=== PATIENT | male | born 1945 | race Caucasian/White ===

== ENCOUNTER 2016-11-29 17:03 | Emergency (ER) | payer MEDICARE ==
[2016-11-29] MEDS ORDERED: DIPH,PERTUS(ACELL)TETVAC-LF 0.5 ML VIAL IM ONE (17:23)
[2016-11-29 17:25] VITALS: RESP 18
--- NOTE | 2016-11-29 17:32 | ED ---
General Adult HPI - General Chief complaint: Fall Stated complaint: Fall Time Seen by Provider: 11/29/16 17:13 Source: patient, family, RN notes reviewed Mode of arrival: EMS Limitations: no limitations - History of Present Illness Initial comments: Patient is a pleasant 71-year-old male presenting to the emergency department following a fall. Patient was walking on steps tripped. Patient fell down approximately 7 steps. Patient did strike the top of his head. Patient does have a mild headache. No loss of consciousness. No neck pain. Patient does have some discomfort of the left mid back. No extremity injury. No chest pain or dyspnea. No abdominal pain. Unclear last tetanus immunization - Related Data Allergies Allergy/AdvReac Type Severity Reaction Status Date / Time No Known Allergies Allergy Verified 11/29/16 17:43 Review of Systems ROS Statement: Those systems with pertinent positive or pertinent negative responses have been documented in the HPI. ROS Other: All systems not noted in ROS Statement are negative. Constitutional: Denies: fever Eyes: Denies: eye pain ENT: Denies: ear pain Respiratory: Denies: cough, dyspnea Cardiovascular: Denies: chest pain Endocrine: Denies: fatigue Gastrointestinal: Denies: abdominal pain Genitourinary: Denies: dysuria Musculoskeletal: Reports: back pain Skin: Denies: rash Neurological: Reports: headache. Denies: weakness, confusion Past Medical History Past Medical History: Coronary Artery Disease (CAD), Heart Failure, Diabetes Mellitus, Hyperlipidemia, Hypertension, Thyroid Disorder Additional Past Medical History / Comment(s): KIDNEY DISEASE History of Any Multi-Drug Resistant Organisms: None Reported Past Surgical History: Coronary Bypass/CABG Past Psychological History: Anxiety Smoking Status: Never smoker Past Alcohol Use History: None Reported Past Drug Use History: None Reported General Exam Limitations: no limitations General appearance: alert, in no apparent distress Head exam: Present: other (Abrasions to the top of the head) Eye exam: Present: normal appearance, PERRL, EOMI. Absent: nystagmus ENT exam: Present: normal oropharynx Neck exam: Present: normal inspection, full ROM. Absent: tenderness Respiratory exam: Present: normal lung sounds bilaterally Cardiovascular Exam: Present: regular rate, normal rhythm GI/Abdominal exam: Present: soft. Absent: distended, tenderness Extremities exam: Present: normal inspection Back exam: Present: tenderness (Patient does have mild tenderness below the left scapula.) Neurological exam: Present: alert, oriented X3, CN II-XII intact. Absent: motor sensory deficit Expanded Patient oriented to: Present: person, place, time Speech: Present: fluid speech Cranial nerves: EOM's Intact: Normal Motor strength exam: RUE: 5, LUE: 5, RLE: 5, LLE: 5 Psychiatric exam: Present: normal affect, normal mood Skin exam: Absent: rash Course Vital Signs 11/29/16 17:17 Temperature 96.9 F L Pulse Rate 74 Respiratory 18 Rate Blood Pressure 163/79 O2 Sat by Pulse 95 Oximetry - Reevaluation(s) Reevaluation #1: 11/29/16 17:25 During medication review it was determined patient is on Plavix and does qualify for priority 2 trauma. Case was discussed with Dr. No. EKG Findings - EKG Comments: EKG Findings:: Sinus rhythm at 72. PVC present. AK 196. QRS 112. QT 448. QTC 490. Left axis. LVH with repolarization change. Medical Decision Making - Medical Decision Making Patient examined and resting comfortably in bed. Patient and family updated on results. - Radiology Data Radiology results: report reviewed (80 scan of brain shows no acute intercranial abnormality.), image reviewed (Chest x-ray and pelvis x-ray and rib x-rays show no acute abnormality.) Disposition Clinical Impression: Fall, Head injury, Rib contusion Disposition: HOME SELF-CARE Condition: Stable Instructions: Head Injury (ED), Rib Contusion (ED) Additional Instructions: Dexi-foj-eeszgyy Tylenol as needed. Please follow-up with primary care physician in the next day or 2 for recheck. Return for confusion, vomiting, weakness, difficulty breathing, worsening symptoms or other concerns. Referrals: Golden Horta DO [Primary Care Provider] - 1-2 days Time of Disposition: 18:44
--- NOTE | 2016-11-29 17:43 | XR ---
EXAMINATION TYPE: XR pelvis AP view DATE OF EXAM: 11/29/2016 5:35 PM COMPARISON: NONE HISTORY: Pain TECHNIQUE: Single view FINDINGS: Pelvic ring is intact. Proximal femurs are intact. Acetabular intact. There is vascular melissa cification. Sacroiliac joints appear normal. IMPRESSION: Negative pelvis exam. No fracture.
--- NOTE | 2016-11-29 18:10 | XR ---
EXAMINATION TYPE: XR chest 1V portable DATE OF EXAM: 11/29/2016 5:40 PM COMPARISON: 10/11/2011 HISTORY: Rib pain TECHNIQUE: Single frontal view of the chest is obtained. FINDINGS: There is no heart failure nor confluent pneumonic infiltrate. There are no hilar masses. C ostophrenic angles are clear. There are sternal wires. There is a left axillary pacemaker with the le ad tips in the right ventricle. There is no pneumothorax. I see no rib fracture. IMPRESSION: No active cardiopulmonary disease. There is clearing of the pulmonary edema compared to old exam.
--- NOTE | 2016-11-29 18:18 | CT ---
EXAMINATION TYPE: CT brain wo con DATE OF EXAM: 11/29/2016 6:13 PM COMPARISON: 10/02/2011 HISTORY: Patient fell today hitting top of head, abrasion at site. Patient displays dizziness post f all. CT DLP: 1067 mGycm Automated exposure control for dose reduction was used. FINDINGS: There is mild cerebral cortical atrophy. There is no mass effect nor midline shift. There is no sign of intracranial hemorrhage. The calvarium is intact. I see no bony destructive process. There is left parietal scalp soft tissue swelling. IMPRESSION: Left parietal scalp hematoma. Cerebral atrophy. No acute intracranial abnormality. Brain is stable co mpared to old exam.
--- NOTE | 2016-11-29 18:23 | XR ---
EXAMINATION TYPE: XR ribs LT DATE OF EXAM: 11/29/2016 6:16 PM COMPARISON: NONE HISTORY: Left rib pain TECHNIQUE: 4 views FINDINGS: I see no pleural effusion or pneumothorax. Left lung is clear of consolidation. I see no di splaced rib fracture. Left axillary pacemaker is noted. IMPRESSION: No rib fracture seen.
[2016-11-29] MEDS ORDERED: ACETAMINOPHEN TAB 500 MG TAB PO STA (18:26)
[2016-11-29 18:38] LABS: Glucose,Whole Blood 90 mg/dL (75-99)
[2016-11-29 19:22] VITALS: BP 123/67; PULSE 68; TEMP 98
== END 2016-11-29 19:30 | disposition home or self-care (01) ==
LOC: EC 17:03
DX: S20.212A Contusion of left front wall of thorax, initial encounter (principal); S00.01XA Abrasion of scalp, initial encounter; M54.9 Dorsalgia, unspecified; Z23 Encounter for immunization; W10.9XXA Fall (on) (from) unspecified stairs and steps, initial encounter
CPT/HCPCS: 36415; 70450; 71010; 72170; 90471; 90715; 93005; 99285

== ENCOUNTER 2018-06-15 11:38 | Day surgery (SDC) | payer MEDICARE ==
[2018-06-09 15:58] VITALS: BMI 25.8
[~2018-06-15 11:38] MED LIST: LACTATED RINGERS 1,000 ML IV SCH; SODIUM CHLORIDE 0.9% 1,000 ML IV SCH; ceFAZolin 1,000 MG in SODIUM CHLORIDE 0.9% IRRIGATIO 250 ML IRRIGATION ONE; ceFAZolin IN SWFI 2 GM/20 ML SYRINGE IVP ONE
[2018-06-15 12:42] LABS: Glucose,Whole Blood 120 mg/dL (75-99)
[2018-06-15] MEDS ORDERED: MIDAZOLAM 2 MG/2 ML VIAL IV ONE (12:46)
[2018-06-15] MEDS ORDERED: MIDAZOLAM 2 MG/2 ML VIAL ONE (13:08)
[2018-06-15] MEDS ORDERED: fentaNYL (PF) 50 MCG/ML 2 ML AMP ONE (13:08)
[2018-06-15] MEDS ORDERED: PROPOFOL 10 MG/ML 20 ML VIAL IV ONE (13:08)
[2018-06-15] MEDS ORDERED: LIDOCAINE 1% INJ 10MG/ML (20 ML MDV) ONE (13:28)
[2018-06-15] MEDS ORDERED: LIDOCAINE 1% INJ 10MG/ML (20 ML MDV) SQ ONE ×2 (13:45→14:24)
--- NOTE | 2018-06-15 15:09 | P.DS ---
Providers Attending physician: Silvestre Jackson Primary care physician: [facility] Course: 72-year-old male patient with ischemic cardiomyopathy, systolic heart failure CHF class 2-3, history of fast ventricular tachycardia in the past ICD dual chamber for secondary prevention of sudden cardiac in the past. Device is now at [facility] and he is admitted for dual-chamber ICD generator change. Normal battery depletion Known coronary artery disease Ischemic cardio myopathy Left ventricular ejection fraction 40% Chronic kidney disease with creatinine around 2.5 and hence not on ELIZABETH inhibitor is on angiotensin receptor blockers History of hyperkalemia hence not on ELIZABETH inhibitor as angiotensin receptor blockers Known coronary artery disease Diabetes type 2 Hypertension Successful dual-chamber ICD generator change DFT at below 15 J Plan - Discharge Summary Discharge Rx Participant: Yes New Discharge Prescriptions: No Action Aspirin EC [Ecotrin Low Dose] 81 mg PO BID Ferrous Sulfate [Feosol] 325 mg PO BID Ergocalciferol [Vitamin D2] 50,000 unit PO Q28D Allopurinol [Zyloprim] 100 mg PO DAILY Procrit(Unknown Dose) 1 dose IV Q21D Calcitriol [Rocaltrol] 0.25 mcg PO WE Levothyroxine Sodium [Synthroid] 100 mcg PO DAILY Carvedilol [Coreg] 12.5 mg PO BID Atorvastatin [Lipitor] 40 mg PO HS Repaglinide [Prandin] 0.5 mg PO 1200 Repaglinide [Prandin] 0.5 mg PO AC-BRKFST RX: Spironolactone 12.5 mg PO 1200 Discharge Medication List Allopurinol [Zyloprim] 100 mg PO DAILY 11/29/16 [History] Aspirin EC [Ecotrin Low Dose] 81 mg PO BID 11/29/16 [History] Calcitriol [Rocaltrol] 0.25 mcg PO WE 11/29/16 [History] Carvedilol [Coreg] 12.5 mg PO BID 11/29/16 [History] Ergocalciferol [Vitamin D2] 50,000 unit PO Q28D 11/29/16 [History] Ferrous Sulfate [Feosol] 325 mg PO BID 11/29/16 [History] Levothyroxine Sodium [Synthroid] 100 mcg PO DAILY 11/29/16 [History] Procrit(Unknown Dose) 1 dose IV Q21D 11/29/16 [History] Atorvastatin [Lipitor] 40 mg PO HS 1030/18 [History] RX: Spironolactone 12.5 mg PO 1200 06/09/18 [History] Repaglinide [Prandin] 0.5 mg PO 1200 06/09/18 [History] Repaglinide [Prandin] 0.5 mg PO AC-BRKFST 06/09/18 [History]
[2018-06-15] MEDS ORDERED: HYDROcodone/APAP 5-325MG 1 EACH TAB PO PRN (15:16)
[2018-06-15] MEDS ORDERED: ACETAMINOPHEN TAB 325 MG TAB PO PRN (15:16)
[2018-06-15] MEDS ORDERED: ACETAMINOPHEN IV (For NPO) 1,000 MG in EMPTY BAG 1 BAG IVPB ONE (15:30)
[2018-06-15 15:50] LABS: Glucose,Whole Blood 114 mg/dL (75-99)
[2018-06-15] MEDS ORDERED: PROCRIT IV SCH (16:45)
[2018-06-15] MEDS: ALPRAZolam 0.25 MG TAB PO PRN ×2 (17:09→23:07)
[2018-06-15] MEDS: CARVEDILOL 12.5 MG TAB PO SCH (17:09)
[2018-06-15] MEDS: ceFAZolin IN SWFI 2 GM/20 ML SYRINGE IVP SCH ×2 (18:05→23:07)
[2018-06-15] MEDS: ASPIRIN 81 MG PO SCH (20:10)
[2018-06-15] MEDS: FERROUS SULFATE 325 MG TAB PO SCH (20:10)
[2018-06-15 20:45] LABS: Glucose,Whole Blood 204 mg/dL (75-99)
[2018-06-15] MEDS ORDERED: ATORVASTATIN 40 MG TAB PO SCH (21:00)
--- NOTE | 2018-06-15 22:10 | PCN ---
PROCEDURE NOTE Mr. Pena is a 75-year-old male patient with a dual-chamber ICD for secondary prevention of sudden cardiac with underlying ischemic cardiomyopathy, heart failure and coronary artery disease, who has a dual-chamber ICD implanted, now needs a generator change because of normal battery depletion. Patient was brought to the EP lab in a fasting state. Written informed consent was obtained prior to the procedure. The left shoulder was prepped and draped as per protocol. 1% lidocaine was used for local anesthesia. An incision was made directly over the previous surgical site and carried down to the level of the generator. The generator was explanted. The leads were freed from the surrounding capsule and scar tissue. There was fairly exuberant capsule formation associated on the leads. Leads were carefully freed. Partial capsulectomy was performed. Hemostasis was assured and all muscular bleeding was taken care of using Aquamantys. The old generator was removed. This was a [employer] CD 2211-36, serial #[id number]. The new generator implanted was a [employer] CD 2411-36C, serial #[id number]. The atrial lead was a model #1688TC, 52 cm in length and serial number [id number]. The P waves were 2.9 mV. Pacing impedance 440 ohms, pacing threshold 0.6 V at 0.5 milliseconds. The RV lead was a [employer] model #14657 5 cm in length and serial number [id number]. R-waves 12 mV. Pacing impedance 450 ohms, pacing threshold 1.1 V at 0.5 milliseconds. The leads and generator were then placed in the subfascial pocket. The wound was closed in 3 layers and dressed per protocol. Defibrillation level testing: DC fib shock was used to induce ventricular fibrillation. This was adequately and appropriately detected at least sensitivity and successfully internally defibrillated with a 15 joule shock. Charge time 1.9 seconds. No post shock noise, performed at least sensitivity of 1 mV. Next, the device was then reprogrammed on account of the immediate RIT programming. Along with rate responsiveness, appropriate antitachycardia pacing cardioversion defibrillation was programmed. RESULTS: 1. Successful dual-chamber ICD generator change for secondary prevention of sudden cardiac . 2. DFT at or below 15 joules. Copy to attention [facility] at [facility]. MMODL / IJN: [id number] /
[2018-06-16 05:24] VITALS: RESP 18
[2018-06-16 05:42] LABS: Glucose,Whole Blood 76 mg/dL (75-99)
[2018-06-16] MEDS: ceFAZolin IN SWFI 2 GM/20 ML SYRINGE IVP SCH ×2 (06:13→12:13)
[2018-06-16] MEDS: CARVEDILOL 12.5 MG TAB PO SCH (06:14)
[2018-06-16] MEDS ORDERED: LEVOTHYROXINE 100 MCG TAB PO SCH (06:30)
[2018-06-16] MEDS ORDERED: REPAGLINIDE 1 MG TAB PO SCH ×2 (07:30→12:00)
[2018-06-16] MEDS: FERROUS SULFATE 325 MG TAB PO SCH (08:10)
[2018-06-16] MEDS: ASPIRIN 81 MG PO SCH (08:10)
[2018-06-16] MEDS ORDERED: ALLOPURINOL 100 MG TAB PO SCH (09:00)
[2018-06-16 10:19] VITALS: BP 174/77; TEMP 97.6
[2018-06-16 10:38] VITALS: PULSE 50
[2018-06-16] MEDS ORDERED: SPIRONOLACTONE 25 MG TAB PO SCH (12:00)
--- NOTE | 2018-06-16 15:12 | P.DS ---
Providers Attending physician: Silvestre Jackson Primary care physician: [facility] Course: Patient is doing well. No chest discomfort dizziness lightheadedness or palpitations He underwent dual-chamber ICD generator change yesterday. Very small soft hematoma minimal bruising and soakage [place] vitals are stable, afebrile normal respirations Impression Ischemic cardio myopathy Sustained ventricular tachycardia in the past Status post ICD generator change yesterday Patient is continued IV antibiotics will be discharged home today with seeing the office in 5 days Coreg dose was increased to 12.5 g twice daily in the office Plan - Discharge Summary Discharge Rx Participant: Yes New Discharge Prescriptions: Continue Aspirin EC [Ecotrin Low Dose] 81 mg PO BID Ferrous Sulfate [Iron (65 MG Elemental)] 325 mg PO BID Ergocalciferol [Vitamin D2 (DRISDOL)] 50,000 unit PO Q28D Allopurinol [Zyloprim] 100 mg PO DAILY Procrit(Unknown Dose) 1 dose IV Q21D Calcitriol [Rocaltrol] 0.25 mcg PO WE Levothyroxine Sodium [Synthroid] 100 mcg PO DAILY Carvedilol [Coreg] 12.5 mg PO BID Atorvastatin [Lipitor] 40 mg PO HS Repaglinide [Prandin] 0.5 mg PO 1200 Repaglinide [Prandin] 0.5 mg PO AC-BRKFST Spironolactone 12.5 mg PO 1200 Discharge Medication List Allopurinol [Zyloprim] 100 mg PO DAILY 11/29/16 [History] Aspirin EC [Ecotrin Low Dose] 81 mg PO BID 11/29/16 [History] Calcitriol [Rocaltrol] 0.25 mcg PO WE 11/29/16 [History] Carvedilol [Coreg] 12.5 mg PO BID 11/29/16 [History] Ergocalciferol [Vitamin D2 (DRISDOL)] 50,000 unit PO Q28D 11/29/16 [History] Ferrous Sulfate [Iron (65 MG Elemental)] 325 mg PO BID 11/29/16 [History] Levothyroxine Sodium [Synthroid] 100 mcg PO DAILY 11/29/16 [History] Procrit(Unknown Dose) 1 dose IV Q21D 11/29/16 [History] Atorvastatin [Lipitor] 40 mg PO HS 06/09/18 [History] Repaglinide [Prandin] 0.5 mg PO 1200 06/09/18 [History] Repaglinide [Prandin] 0.5 mg PO AC-BRKFST 06/09/18 [History] Spironolactone 12.5 mg PO 1200 06/09/18 [History] Follow up Appointment(s)/Referral(s): Silvestre Jackson MD [STAFF PHYSICIAN] - 06/22/18 11:00 am (Follow up in the Device Clinic as scheduled on 2017 at 11:00am Follow-up with Dr. Sen in 6 months) Patient Instructions/Handouts: Pacemaker Generator Change (GEN) Activity/Diet/Wound Care/Special Instructions: PATIENT EDUCATION MATERIAL Instructions following a heart rhythm device implant. 1. Keep dressing DRY for 5 DAYS. You may cover the area with Saran or Cling Wrap, prior to a shower. 2. The dressing will be removed in the Device Clinic at [facility]. Absorbable sutures were used to close the wound. 3. Avoid raising the left arm above the shoulder level. 4 week restriction 4. Avoid arm movements, like backscratching, rubbing the head, or pulling on a cord. 4 weeks restriction 5. Gentle range of motion movements of the shoulder, closest to the incision should be performed to avoid a frozen shoulder. (Pendulum exercises of the shoulder) 6. The opposite arm may be used freely. 7. Avoid driving for 7 days. 8. Avoid activities such as golfing, swimming, weed whacking, lifting more than 10 pounds weight, bowling, gymnastics and weight training/lifting. (6 weeks restriction) 9. Activities such as wood chopping with an axe, pull-ups in the gymnasium, power lifting, arc-welding, being close to home induction cooktops will always be a problem. 10. Arm sling is only a reminder not to raise the arm above the head. You do not need to keep the arm completely immobilized. Your free to move the arm and use it and for normal activities. In case of any problems, please call [facility], [facility], @ [phone], Attention: Device Clinic Device clinic follow-up in 5 days Follow-up with Dr. Sen in 4-6 months Discharge Disposition: HOME SELF-CARE
[2018-06-17] MEDS ORDERED: CALCITRIOL 0.25 MCG CAP PO SCH (09:00)
[2018-07-12] MEDS ORDERED: ERGOCALCIFEROL 50,000 UNIT CAP PO SCH (09:00)
== END 2018-06-16 15:13 | disposition home or self-care (01) ==
LOC: CATHEP 11:38 → 3SCARD 14:48 → 1SOBS 06-16 10:10 → CATHEP 06-16 15:13
PROVIDERS: ATTEND Internal Medicine Clinical Cardiac Electrophysiology
DX: Z45.02 Encounter for adjustment and management of automatic implantable cardiac defibrillator (principal); I25.5 Ischemic cardiomyopathy; I47.2 Ventricular tachycardia; I97.638 Postprocedural hematoma of a circulatory system organ or structure following other circulatory system procedure; Y83.8 Other surgical procedures as the cause of abnormal reaction of the patient, or of later complication, without mention of misadventure at the time of the procedure; Y92.239 Unspecified place in hospital as the place of occurrence of the external cause; I25.10 Atherosclerotic heart disease of native coronary artery without angina pectoris; I25.810 Atherosclerosis of coronary artery bypass graft(s) without angina pectoris; E11.22 Type 2 diabetes mellitus with diabetic chronic kidney disease; I13.0 Hypertensive heart and chronic kidney disease with heart failure and stage 1 through stage 4 chronic kidney disease, or unspecified chronic kidney disease; N18.4 Chronic kidney disease, stage 4 (severe); I50.22 Chronic systolic (congestive) heart failure; E78.5 Hyperlipidemia, unspecified; M10.9 Gout, unspecified; E07.9 Disorder of thyroid, unspecified; E11.319 Type 2 diabetes mellitus with unspecified diabetic retinopathy without macular edema; Z79.82 Long term (current) use of aspirin; Z79.890 Hormone replacement therapy; Z79.899 Other long term (current) drug therapy; Z79.84 Long term (current) use of oral hypoglycemic drugs
CPT/HCPCS: 93641; 33263; C1721; J2250; J0690 ×3; J2001; J3010; J0131; J2704; 93005

== ENCOUNTER 2020-11-18 21:48 | Inpatient (IN) | payer MEDICARE ==
[2020-11-18] MEDS ORDERED: SODIUM CHLORIDE 0.9% 500 ML 500 ML IV STA (23:25)
[2020-11-19 00:39] LABS: Anisocytosis Slight; Basophils % (A) 0 %; Eosinophils % (A) 0 %; HCT 29.6 % (39.0-53.0); HGB 9.7 gm/dL (13.0-17.5); Hypochromasia Slight; Lymphocytes # (A) 0.5 k/uL (1.0-4.8); Lymphocytes % (A) 16 %; MCH 31.3 pg (25.0-35.0); MCHC 32.6 g/dL (31.0-37.0); MCV 95.9 fL (80.0-100.0); Mean Platelet Volume 8.3; Monocytes # (A) 0.2 k/uL (0-1.0); Monocytes % (A) 7 %; Neutrophils # (A) 2.4 k/uL (1.3-7.7); Neutrophils % (A) 75 %; Platelet Count 164 k/uL (150-450); Poikilocytosis Slight; RBC 3.09 m/uL (4.30-5.90); RDW 17.2 % (11.5-15.5); WBC 3.2 k/uL (3.8-10.6)
[2020-11-19 00:49] LABS: Albumin 3.2 g/dL (3.5-5.0); Calcium 7.4 mg/dL (8.4-10.2); Potassium 4.8 mmol/L (3.5-5.1); Total Bilirubin 0.5 mg/dL (0.2-1.3); Total Protein 5.7 g/dL (6.3-8.2)
[2020-11-19 00:50] LABS: Partial Thromboplastin Time 24.3 sec (22.0-30.0); Prothrombin Time 10.2 sec (9.0-12.0)
[2020-11-19 01:59] LABS: Appearance,Urine Clear (Clear); Bilirubin,Urine Negative (Negative); Blood,Urine Moderate (Negative); Color,Urine Yellow; Glucose,Urine (UA) Negative (Negative); Ketones,Urine Negative (Negative); Leukocyte Esterase,Urine Negative (Negative); Mucus,Urine Rare /hpf; Nitrite,Urine Negative (Negative); PH, Urine 5.5 (5.0-8.0); Protein,Urine 2+ (Negative); RBC,Urine 1 /hpf (0-5); Specific Gravity,Urine 1.009 (1.001-1.035); Urobilinogen,Urine <2.0 mg/dL (<2.0); WBC,Urine 1 /hpf (0-5)
[2020-11-19] MEDS ORDERED: ALPRAZolam 0.25 MG TAB PO STA (02:12)
[2020-11-19] MEDS ORDERED: NALOXONE 0.4 MG/ML 1 ML VIAL IV PRN (02:13)
[2020-11-19] MEDS ORDERED: SODIUM CHLORIDE 0.9% 1,000 ML IV SCH (02:15)
--- NOTE | 2020-11-19 02:17 | ED ---
General Adult HPI - General Chief complaint: Weakness Stated complaint: Weakness, Covid symptoms Time Seen by Provider: 11/18/20 22:50 Source: patient, EMS Mode of arrival: EMS Limitations: no limitations - History of Present Illness Initial comments: 75 year-old male patient presents to the emergency department for evaluation of fatigue and weakness for the last week. States that his symptoms have been progressively worsening. States that he slept all day today. They called an ambulance because he was too weak to transport himself with his walker from the toilet back to bed. He denies any headaches, blurred vision, double vision. Denies any focal extremity weakness. Denies any chest pain or shortness of breath. He denies any hematuria, dysuria, urinary urgency, or urinary frequency. He states he did have outpatient COVID test which was negative. He does have extensive past medical history including coronary artery disease status post CABG and implanted AICD, diabetes. Denies any nausea or vomiting. Denies diarrhea. Patient denies any recent rash, fever, chills, cough, shortness of breath, chest pain, diarrhea, constipation, back pain, numbness, tingling, dizziness, weakness, headache, visual changes, or any other complaints. - Related Data Home Medications Medication Instructions Recorded Confirmed Aspirin EC [Ecotrin Low Dose] 81 mg PO BID 11/29/16 06/09/18 Carvedilol [Coreg] 12.5 mg PO BID 11/29/16 06/09/18 Ergocalciferol [Vitamin D2 50,000 unit PO Q28D 11/29/16 06/09/18 (DRISDOL)] Ferrous Sulfate [Iron (65 MG 325 mg PO BID 11/29/16 06/09/18 Elemental)] Levothyroxine Sodium [Synthroid] 100 mcg PO DAILY 11/29/16 06/09/18 Procrit(Unknown Dose) 1 dose IV Q21D 11/29/16 06/09/18 allopurinoL [Zyloprim] 100 mg PO DAILY 11/29/16 06/09/18 calcitrioL [Rocaltrol] 0.25 mcg PO WE 11/29/16 06/09/18 Atorvastatin [Lipitor] 40 mg PO HS 06/09/18 06/09/18 Repaglinide [Prandin] 0.5 mg PO 1200 06/09/18 06/09/18 Repaglinide [Prandin] 0.5 mg PO AC-BRKFST 06/09/18 06/09/18 Spironolactone 12.5 mg PO 1200 06/09/18 06/09/18 Allergies Allergy/AdvReac Type Severity Reaction Status Date / Time No Known Allergies Allergy Verified 06/09/18 15:50 Review of Systems ROS Statement: Those systems with pertinent positive or pertinent negative responses have been documented in the HPI. ROS Other: All systems not noted in ROS Statement are negative. Past Medical History Past Medical History: Diabetes Mellitus, Eye Disorder, Thyroid Disorder Additional Past Medical History / Comment(s): SEE DR KENNY H&P, ANEMIA, HX GOUT, NEUROPATHY ALEX HANDS AND FEET, DIABETIC RETINOPATHY, GET INJECTIONS IN EYES, stage 4 KIDNEY DISEASE per spouse History of Any Multi-Drug Resistant Organisms: None Reported Past Surgical History: AICD, Coronary Bypass/CABG Additional Past Surgical History / Comment(s): ALEX CATARACTS, CABG X4 Past Anesthesia/Blood Transfusion Reactions: No Reported Reaction Type of Cardiac Device: AICD Device Placement Date:: 11/20/17 [facility] Past Psychological History: No Psychological Hx Reported Smoking Status: Never smoker Past Alcohol Use History: None Reported Past Drug Use History: None Reported - Past Family History Father Family Medical History: Cancer Brother(s) Family Medical History: Cancer General Exam Limitations: no limitations General appearance: alert, in no apparent distress, other (This is a well- developed, well-nourished elderly male patient in no acute distress. Vital signs upon presentation are temperature 99.2F, pulse 60, respirations 18, blood pressure 145/66, pulse ox 98% on room air.) Eye exam: Present: normal appearance, PERRL, EOMI. Absent: scleral icterus, conjunctival injection, periorbital swelling ENT exam: Present: normal exam, normal oropharynx, mucous membranes moist Respiratory exam: Present: normal lung sounds bilaterally. Absent: respiratory distress, wheezes, rales, rhonchi, stridor Cardiovascular Exam: Present: regular rate, normal rhythm, normal heart sounds. Absent: systolic murmur, diastolic murmur, rubs, gallop, clicks GI/Abdominal exam: Present: soft, normal bowel sounds. Absent: distended, tenderness, guarding, rebound, rigid Neurological exam: Present: alert, oriented X3, CN II-XII intact Psychiatric exam: Present: normal affect, normal mood Skin exam: Present: warm, dry, intact, normal color. Absent: rash Course Vital Signs 11/18/20 11/19/20 11/19/20 22:05 01:53 02:36 Temperature 99.2 F 99.3 F Pulse Rate 60 66 Pulse Rate [ 64 Pulse Oximetery ] Respiratory 18 15 18 Rate Blood Pressure 145/66 127/58 Blood Pressure 130/65 [Left Arm Sitting] O2 Sat by Pulse 98 98 94 L Oximetry 11/19/20 03:00 Temperature Pulse Rate 61 Pulse Rate [ Pulse Oximetery ] Respiratory 15 Rate Blood Pressure 127/58 Blood Pressure [Left Arm Sitting] O2 Sat by Pulse 97 Oximetry EKG Findings - EKG Comments: EKG Findings:: EKG obtained at 10 01 shows normal sinus rhythm with a ventricular rate of 62, VT interval 206, QRS duration 102, QTc 456, QTc 462. No evidence of ST elevation or depression. Medical Decision Making - Medical Decision Making 75-year-old male patient presents to the emergency department today for evaluation of progressive weakness and fatigue over the last week. Physical examination is unremarkable. He is neurologically intact with no focal deficits. Labs reviewed and revealed decreased white blood cell count at 3.2, hemoglobin 9.7 which is stable for him, sodium 131, BUN 61, creatinine 3.37, GFR 17 which is slightly worse than usual. Troponin 0.073. Urinalysis shows no evidence for infection. He did test positive for COVID-19. Most likely patient's troponin is due to leak from renal failure however given patient's cardiac history we'll admit for serial troponins. Also patient is quite weak and unable to ambulate at this time. He agrees with admission. Case discussed with Dr. Hutton. My attending is Dr. Barber. - Lab Data Result diagrams: 11/19/20 00:24 11/19/20 00:24 Lab Results 11/19/20 11/19/20 11/19/20 Range/Units 00:24 00:24 00:24 WBC 3.2 L (3.8-10.6) k/uL RBC 3.09 L (4.30-5.90) m/uL Hgb 9.7 L (13.0-17.5) gm/dL Hct 29.6 L (39.0-53.0) % MCV 95.9 (80.0-100.0) fL MCH 31.3 (25.0-35.0) pg MCHC 32.6 (31.0-37.0) g/dL RDW 17.2 H (11.5-15.5) % Plt Count 164 (150-450) k/uL MPV 8.3 Neutrophils % 75 % Lymphocytes % 16 % Monocytes % 7 % Eosinophils % 0 % Basophils % 0 % Neutrophils # 2.4 (1.3-7.7) k/uL Lymphocytes # 0.5 L (1.0-4.8) k/uL Monocytes # 0.2 (0-1.0) k/uL Eosinophils # 0.0 (0-0.7) k/uL Basophils # 0.0 (0-0.2) k/uL Hypochromasia Slight Poikilocytosis Slight Anisocytosis Slight PT 10.2 (9.0-12.0) sec INR 1.0 (<1.2) APTT 24.3 (22.0-30.0) sec Sodium 131 L (137-145) mmol/L Potassium 4.8 (3.5-5.1) mmol/L Chloride 102 (98-107) mmol/L Carbon Dioxide 19 L (22-30) mmol/L Anion Gap 10 mmol/L BUN 61 H (9-20) mg/dL Creatinine 3.37 H (0.66-1.25) mg/dL Est GFR (CKD-EPI)AfAm 20 (>60 ml/min/1.73 sqM) Est GFR (CKD-EPI)NonAf 17 (>60 ml/min/1.73 sqM) Glucose 147 H (74-99) mg/dL Plasma Lactic Acid Narayan (0.7-2.0) mmol/L Calcium 7.4 L (8.4-10.2) mg/dL Magnesium 2.0 (1.6-2.3) mg/dL Total Bilirubin 0.5 (0.2-1.3) mg/dL AST 39 (17-59) U/L ALT 17 (4-49) U/L Alkaline Phosphatase 71 (38-126) U/L Troponin I (0.000-0.034) ng/mL Total Protein 5.7 L (6.3-8.2) g/dL Albumin 3.2 L (3.5-5.0) g/dL Urine Color Urine Appearance (Clear) Urine pH (5.0-8.0) Ur Specific Prentiss (1.001-1.035) Urine Protein (Negative) Urine Glucose (UA) (Negative) Urine Ketones (Negative) Urine Blood (Negative) Urine Nitrite (Negative) Urine Bilirubin (Negative) Urine Urobilinogen (<2.0) mg/dL Ur Leukocyte Esterase (Negative) Urine RBC (0-5) /hpf Urine WBC (0-5) /hpf Urine Mucus (None) /hpf Coronavirus (PCR) (Not Detectd) 11/19/20 11/19/20 11/19/20 Range/Units 00:24 00:24 00:24 WBC (3.8-10.6) k/uL RBC (4.30-5.90) m/uL Hgb (13.0-17.5) gm/dL Hct (39.0-53.0) % MCV (80.0-100.0) fL MCH (25.0-35.0) pg MCHC (31.0-37.0) g/dL RDW (11.5-15.5) % Plt Count (150-450) k/uL MPV Neutrophils % % Lymphocytes % % Monocytes % % Eosinophils % % Basophils % % Neutrophils # (1.3-7.7) k/uL Lymphocytes # (1.0-4.8) k/uL Monocytes # (0-1.0) k/uL Eosinophils # (0-0.7) k/uL Basophils # (0-0.2) k/uL Hypochromasia Poikilocytosis Anisocytosis PT (9.0-12.0) sec INR (<1.2) APTT (22.0-30.0) sec Sodium (137-145) mmol/L Potassium (3.5-5.1) mmol/L Chloride (98-107) mmol/L Carbon Dioxide (22-30) mmol/L Anion Gap mmol/L BUN (9-20) mg/dL Creatinine (0.66-1.25) mg/dL Est GFR (CKD-EPI)AfAm (>60 ml/min/1.73 sqM) Est GFR (CKD-EPI)NonAf (>60 ml/min/1.73 sqM) Glucose (74-99) mg/dL Plasma Lactic Acid Narayan 0.7 (0.7-2.0) mmol/L Calcium (8.4-10.2) mg/dL Magnesium (1.6-2.3) mg/dL Total Bilirubin (0.2-1.3) mg/dL AST (17-59) U/L ALT (4-49) U/L Alkaline Phosphatase (38-126) U/L Troponin I 0.073 H* (0.000-0.034) ng/mL Total Protein (6.3-8.2) g/dL Albumin (3.5-5.0) g/dL Urine Color Urine Appearance (Clear) Urine pH (5.0-8.0) Ur Specific Prentiss (1.001-1.035) Urine Protein (Negative) Urine Glucose (UA) (Negative) Urine Ketones (Negative) Urine Blood (Negative) Urine Nitrite (Negative) Urine Bilirubin (Negative) Urine Urobilinogen (<2.0) mg/dL Ur Leukocyte Esterase (Negative) Urine RBC (0-5) /hpf Urine WBC (0-5) /hpf Urine Mucus (None) /hpf Coronavirus (PCR) Detected A (Not Detectd) 11/19/20 Range/Units 01:52 WBC (3.8-10.6) k/uL RBC (4.30-5.90) m/uL Hgb (13.0-17.5) gm/dL Hct (39.0-53.0) % MCV (80.0-100.0) fL MCH (25.0-35.0) pg MCHC (31.0-37.0) g/dL RDW (11.5-15.5) % Plt Count (150-450) k/uL MPV Neutrophils % % Lymphocytes % % Monocytes % % Eosinophils % % Basophils % % Neutrophils # (1.3-7.7) k/uL Lymphocytes # (1.0-4.8) k/uL Monocytes # (0-1.0) k/uL Eosinophils # (0-0.7) k/uL Basophils # (0-0.2) k/uL Hypochromasia Poikilocytosis Anisocytosis PT (9.0-12.0) sec INR (<1.2) APTT (22.0-30.0) sec Sodium (137-145) mmol/L Potassium (3.5-5.1) mmol/L Chloride (98-107) mmol/L Carbon Dioxide (22-30) mmol/L Anion Gap mmol/L BUN (9-20) mg/dL Creatinine (0.66-1.25) mg/dL Est GFR (CKD-EPI)AfAm (>60 ml/min/1.73 sqM) Est GFR (CKD-EPI)NonAf (>60 ml/min/1.73 sqM) Glucose (74-99) mg/dL Plasma Lactic Acid Narayan (0.7-2.0) mmol/L Calcium (8.4-10.2) mg/dL Magnesium (1.6-2.3) mg/dL Total Bilirubin (0.2-1.3) mg/dL AST (17-59) U/L ALT (4-49) U/L Alkaline Phosphatase (38-126) U/L Troponin I (0.000-0.034) ng/mL Total Protein (6.3-8.2) g/dL Albumin (3.5-5.0) g/dL Urine Color Yellow Urine Appearance Clear (Clear) Urine pH 5.5 (5.0-8.0) Ur Specific Prentiss 1.009 (1.001-1.035) Urine Protein 2+ H (Negative) Urine Glucose (UA) Negative (Negative) Urine Ketones Negative (Negative) Urine Blood Moderate H (Negative) Urine Nitrite Negative (Negative) Urine Bilirubin Negative (Negative) Urine Urobilinogen <2.0 (<2.0) mg/dL Ur Leukocyte Esterase Negative (Negative) Urine RBC 1 (0-5) /hpf Urine WBC 1 (0-5) /hpf Urine Mucus Rare H (None) /hpf Coronavirus (PCR) (Not Detectd) - Radiology Data Radiology results: report reviewed, image reviewed Two-view x-ray of the chest is obtained. Report was reviewed in its entirety. Impression by Dr. Johns shows mild bilateral areas of infiltration and/or atelectasis in the lower lung fisher. Disposition Clinical Impression: COVID-19, Weakness, Elevated troponin, Acute on chronic renal failure Disposition: ADMITTED IP TO THIS [facility] Condition: Serious Decision to Admit Reason: Admit from EC Decision Date: 11/19/20 Decision Time: 02:16
--- NOTE | 2020-11-19 02:31 | XR ---
EXAM: XR Chest, 2 Views CLINICAL HISTORY: : Weakness TECHNIQUE: Frontal and lateral views of the chest. COMPARISON: No relevant prior studies available. FINDINGS: Lungs: Mild bilateral areas of infiltration and/or atelectasis in the lower lung fisher. Pleural space: Unremarkable. No pneumothorax. No pleural fluid. Heart: Cardiomegaly. Mediastinum: Unremarkable. Bones/joints: Previous sternotomy. Tubes, lines and devices: Implanted cardiac pacer. IMPRESSION: Mild bilateral areas of infiltration and/or atelectasis in the lower lung fisher.
[2020-11-19] MEDS: ALPRAZolam 0.25 MG TAB PO PRN (07:44)
[2020-11-19] MEDS: ASCORBIC ACID 500 MG TAB PO SCH ×2 (09:26→20:00)
[2020-11-19] MEDS: ZINC SULFATE 220 MG CAP PO SCH (09:26)
--- NOTE | 2020-11-19 10:17 | P.NPCON ---
History of Present Illness - Reason for Consult acute renal failure, chronic renal failure - History of Present Illness Reason for consultation: Acute kidney injury and chronic kidney disease History of present illness: Patient is a 75-year-old male seen in renal consultation for acute kidney injury on chronic kidney disease. Patient has chronic kidney disease stage IV secondary to diabetic kidney disease. Patient's creatinine in August 2020 was 2.0. This admission was elevated at 3.37. Patient presented to the hospital with generalized weakness. He denies any fever or chills. Temperature in the hospital this morning was 99.2F. No cough. No vomiting or diarrhea. No edema. Has been voiding. No hematuria or dysuria. No chest pain or shortness of breath. He did test positive for covid 19 infection. Blood pressure stable. Denies use of nonsteroidals. He does have long-standing history of diabetes mellitus. Chest x-ray suggestive of bilateral infiltrates. Vital signs are stable. General: The patient appeared well nourished and normally developed. HEENT: Head exam is unremarkable. Neck is without jugular venous distension. LUNGS: Breath sounds decreased. HEART: Rate and Rhythm are regular. ABDOMEN: Soft, nontender. EXTREMITITES: No edema. Past Medical History Past Medical History: Diabetes Mellitus, Eye Disorder, Thyroid Disorder Additional Past Medical History / Comment(s): SEE DR KENNY H&P, ANEMIA, HX GOUT, NEUROPATHY ALEX HANDS AND FEET, DIABETIC RETINOPATHY, GET INJECTIONS IN EYES, stage 4 KIDNEY DISEASE per spouse History of Any Multi-Drug Resistant Organisms: None Reported Past Surgical History: AICD, Coronary Bypass/CABG Additional Past Surgical History / Comment(s): ALEX CATARACTS, CABG X4 Past Anesthesia/Blood Transfusion Reactions: No Reported Reaction Type of Cardiac Device: AICD Device Placement Date:: 11/20/17 [facility] Past Psychological History: No Psychological Hx Reported Smoking Status: Never smoker Past Alcohol Use History: None Reported Past Drug Use History: None Reported - Past Family History Father Family Medical History: Cancer Brother(s) Family Medical History: Cancer Medications and Allergies Home Medications Medication Instructions Recorded Confirmed Type Aspirin EC [Ecotrin Low Dose] 81 mg PO BID 11/29/16 11/19/20 History Carvedilol [Coreg] 18.75 mg PO BID@1200,1800 11/29/16 11/19/20 History Ferrous Sulfate [Iron (65 MG 325 mg PO BID@1200,1800 11/29/16 11/19/20 History Elemental)] Levothyroxine Sodium [Synthroid] 100 mcg PO AC-BRKFST 11/29/16 11/19/20 History allopurinoL [Zyloprim] 100 mg PO W/SUPPER 11/29/16 11/19/20 History calcitrioL [Rocaltrol] 0.25 mcg PO WE 11/29/16 11/19/20 History Repaglinide [Prandin] 0.25 mg PO AC-BID 06/09/18 11/19/20 History Spironolactone 12.5 mg PO DAILY@1200 06/09/18 11/19/20 History Atorvastatin Calcium [Lipitor] 40 mg PO HS 11/19/20 11/19/20 History Epoetin Rizwan-Epbx [Retacrit] 4,000 units SQ Q21D 11/19/20 11/19/20 History Ergocalciferol (Vitamin D2) 1,250 mcg PO QMONTHLY 11/19/20 11/19/20 History [Vitamin D2 (50,000 Iu)] Allergies Allergy/AdvReac Type Severity Reaction Status Date / Time No Known Allergies Allergy Verified 11/19/20 08:10 Physical Exam Vitals: Vital Signs Temp Pulse Pulse Resp BP BP Pulse Ox 11/19/20 09:00 61 16 130/69 95 11/19/20 03:00 61 15 127/58 97 11/19/20 02:36 99.3 F 64 18 130/65 94 L 11/19/20 01:53 66 15 127/58 98 11/18/20 22:05 99.2 F 60 18 145/66 98 Intake and Output 11/18/20 11/19/20 11/19/20 22:59 06:59 14:59 Other: Weight 76.204 kg 76.204 kg Results - Lab Results Most recent lab results Calcium 7.4 mg/dL (8.4-10.2) L 11/19/20 00:24 Magnesium 2.0 mg/dL (1.6-2.3) 11/19/20 00:24 11/19/20 00:24 11/19/20 00:24 Assessment and Plan Plan: Assessment: 1. Acute kidney injury mostly prerenal secondary to Covid 19 infection. Creatinine 3.37 on admission. Rule out urinary retention. 2. 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 Creatinine 2.0 in August 2020. 3. Covid 19 infection. 4. Diabetes mellitus. 5. Metabolic acidosis secondary to acute kidney injury. 6. Hyponatremia secondary to acute kidney injury. Possible SIADH from respiratory infection. Plan: Start normal saline at 60 mL an hour. Check bladder scan to rule out urinary retention. Check renal ultrasound. Add oral bicarb. Encourage oral intake. Check serum and urine osmolality and urine sodium level. Repeat electrolytes in the morning. Thank you for the consultation. I will continue to follow the patient with you during his hospital stay.
--- NOTE | 2020-11-19 10:56 | US ---
EXAMINATION TYPE: US kidneys/renal and bladder DATE OF EXAM: 11/19/2020 COMPARISON: US 2012 CLINICAL HISTORY: claus. EXAM MEASUREMENTS: Right Kidney: 9.4 x 5.2 x 4.7 cm Left Kidney: 9.7 x 4.9 x 5.3 cm Bilaterally kidneys are echogenic and difficult to visualize. Right Kidney: No hydronephrosis or masses seen Left Kidney: No hydronephrosis or masses seen Bladder: wnl Bilateral Jets seen: No Urinary bladder is sonolucent. IMPRESSION: 1. Normal renal ultrasound
[2020-11-19] MEDS ORDERED: ASPIRIN 81 MG PO SCH (11:15)
--- NOTE | 2020-11-19 11:49 | P.CRDCN ---
History of Present Illness Consult date: 11/19/20 Requesting physician: Jersey Fritz Reason for Consult (text): Abnormal troponin Chief complaint: Generalized weakness History of present illness: This is a pleasant 75-year-old gentleman who follows with Dr. Jackson in the office. He has a known history of ischemic cardiomyopathy, diabetes, hypertension, hyperlipidemia, dual-chamber ICD, chronic kidney disease who presented to the hospital with symptoms of generalized weakness. EKG on presentation here showed a normal sinus rhythm with nonspecific ST-T wave changes. Chest x-ray showed mild bilateral areas of infiltration and/or atelectasis to the lower lung fisher. Ultrasound of the kidneys and bladder normal. Blood pressure 130/60 with a heart rate in the 60s, 95% on 3 L of oxygen. Temperature 99.3. White blood cell count 3.2, hemoglobin 9.7, platelet count 164. Sodium 131, potassium 4.8, BUN 61, creatinine 3.3. Troponins 0.07, 0.07, 0.06. Ness virus positive. is at bedside. Patient denies any chest discomfort and overall his breathing has been stable his main complaint is that of excessive weakness. Past Medical History Past Medical History: Diabetes Mellitus, Eye Disorder, Thyroid Disorder Additional Past Medical History / Comment(s): SEE DR KENNY H&P, ANEMIA, HX GOUT, NEUROPATHY ALEX HANDS AND FEET, DIABETIC RETINOPATHY, GET INJECTIONS IN EYES, stage 4 KIDNEY DISEASE per spouse History of Any Multi-Drug Resistant Organisms: None Reported Past Surgical History: AICD, Coronary Bypass/CABG Additional Past Surgical History / Comment(s): ALEX CATARACTS, CABG X4 Past Anesthesia/Blood Transfusion Reactions: No Reported Reaction Type of Cardiac Device: AICD Device Placement Date:: 11/20/17 [facility] Past Psychological History: No Psychological Hx Reported Smoking Status: Never smoker Past Alcohol Use History: None Reported Past Drug Use History: None Reported - Past Family History Father Family Medical History: Cancer Brother(s) Family Medical History: Cancer Medications and Allergies Home Medications Medication Instructions Recorded Confirmed Type Aspirin EC [Ecotrin Low Dose] 81 mg PO BID 11/29/16 11/19/20 History Carvedilol [Coreg] 18.75 mg PO BID@1200,1800 11/29/16 11/19/20 History Ferrous Sulfate [Iron (65 MG 325 mg PO BID@1200,1800 11/29/16 11/19/20 History Elemental)] Levothyroxine Sodium [Synthroid] 100 mcg PO AC-BRKFST 11/29/16 11/19/20 History allopurinoL [Zyloprim] 100 mg PO W/SUPPER 11/29/16 11/19/20 History calcitrioL [Rocaltrol] 0.25 mcg PO WE 11/29/16 11/19/20 History Repaglinide [Prandin] 0.25 mg PO AC-BID 06/09/18 11/19/20 History Spironolactone 12.5 mg PO DAILY@1200 06/09/18 11/19/20 History Atorvastatin Calcium [Lipitor] 40 mg PO HS 11/19/20 11/19/20 History Epoetin Rizwan-Epbx [Retacrit] 4,000 units SQ Q21D 11/19/20 11/19/20 History Ergocalciferol (Vitamin D2) 1,250 mcg PO QMONTHLY 11/19/20 11/19/20 History [Vitamin D2 (50,000 Iu)] Allergies Allergy/AdvReac Type Severity Reaction Status Date / Time No Known Allergies Allergy Verified 11/19/20 08:10 Physical Exam Vitals: Vital Signs Temp Pulse Pulse Resp BP BP Pulse Ox 11/19/20 09:00 61 16 130/69 95 11/19/20 03:00 61 15 127/58 97 11/19/20 02:36 99.3 F 64 18 130/65 94 L 11/19/20 01:53 66 15 127/58 98 11/18/20 22:05 99.2 F 60 18 145/66 98 Intake and Output 11/18/20 11/19/20 11/19/20 22:59 06:59 14:59 Other: Weight 76.204 kg 76.204 kg PHYSICAL EXAMINATION: GENERAL: 75-year-old gentleman in no acute distress at the time of my examination HEENT: Head is atraumatic, normocephalic. Pupils equal, round. Sclera anicteric. Conjunctiva are clear. Mucous membranes of the mouth are moist. Neck is supple. There is no elevated jugular venous pressure. No carotid bruit is heard. HEART EXAMINATION: Heart S1, S2 normal. No murmur or gallop heard. CHEST EXAMINATION: Lungs are clear with diminished air entry to the bases bilaterally . No chest wall tenderness is noted on palpation or with deep breathing. ABDOMEN: Soft, nontender. Bowel sounds are heard. No organomegaly noted. EXTREMITIES: 2+ peripheral pulses with no evidence of peripheral edema and no calf tenderness noted. NEUROLOGIC patient is awake, alert and oriented X3. . Results 11/19/20 00:24 11/19/20 00:24 Cardiac Enzymes 11/19/20 11/19/20 11/19/20 Range/Units 00:24 00:24 03:18 AST 39 (17-59) U/L Troponin I 0.073 H* 0.073 H* (0.000-0.034) ng/mL 11/19/20 Range/Units 05:38 AST (17-59) U/L Troponin I 0.068 H* (0.000-0.034) ng/mL Coagulation 11/19/20 Range/Units 00:24 PT 10.2 (9.0-12.0) sec APTT 24.3 (22.0-30.0) sec CBC 11/19/20 Range/Units 00:24 WBC 3.2 L (3.8-10.6) k/uL RBC 3.09 L (4.30-5.90) m/uL Hgb 9.7 L (13.0-17.5) gm/dL Hct 29.6 L (39.0-53.0) % Plt Count 164 (150-450) k/uL Comprehensive Metabolic Panel 11/19/20 Range/Units 00:24 Sodium 131 L (137-145) mmol/L Potassium 4.8 (3.5-5.1) mmol/L Chloride 102 (98-107) mmol/L Carbon Dioxide 19 L (22-30) mmol/L BUN 61 H (9-20) mg/dL Creatinine 3.37 H (0.66-1.25) mg/dL Glucose 147 H (74-99) mg/dL Calcium 7.4 L (8.4-10.2) mg/dL AST 39 (17-59) U/L ALT 17 (4-49) U/L Alkaline Phosphatase 71 (38-126) U/L Total Protein 5.7 L (6.3-8.2) g/dL Albumin 3.2 L (3.5-5.0) g/dL Current Medications Generic Name Dose Route Start Last Admin Trade Name Freq PRN Reason Stop Dose Admin Allopurinol 100 mg 11/19/20 17:30 Allopurinol 100 Mg Tab PO W/SUPPER MATT Alprazolam 0.25 mg 11/19/20 02:12 11/19/20 07:44 Alprazolam 0.25 Mg Tab PO 0.25 mg DAILY PRN Administration Anxiety Ascorbic Acid 500 mg 11/19/20 09:00 11/19/20 09:26 Ascorbic Acid 500 Mg Tab PO 500 mg BID MATT Administration Aspirin 81 mg 11/19/20 11:15 Aspirin 81 Mg PO BID MATT Atorvastatin Calcium 40 mg 11/19/20 21:00 Atorvastatin 40 Mg Tab PO HS [facility] Calcitriol 0.25 mcg 11/22/20 09:00 Calcitriol 0.25 Mcg Cap PO WE [facility] Carvedilol 18.75 mg 11/19/20 12:00 Carvedilol 6.25 Mg Tab PO BID@1200,1800 [facility] Ferrous Sulfate 325 mg 11/19/20 12:00 Ferrous Sulfate 325 Mg Tab PO BID@1200,1800 [facility] Sodium Chloride 1,000 mls @ 60 mls/hr 11/19/20 10:15 Saline 0.9% IV .[id number] [facility] Levothyroxine Sodium 100 mcg 11/19/20 11:15 Levothyroxine 100 [place] [address]30 [facility] Naloxone HCl 0.2 mg 11/19/20 02:13 Naloxone 0.4 Mg/Ml 1 Ml Vial IV Q2M PRN Opioid Reversal Repaglinide 0.25 mg 11/19/20 11:15 Repaglinide 1 Mg Tab PO AC-BID [facility] Sodium Bicarbonate 650 mg 11/19/20 10:30 Sodium Bicarbonate Tab 650 Mg Tab PO BID [facility] Zinc Sulfate 220 mg 11/19/20 09:00 11/19/20 09:26 Zinc Sulfate 220 Mg Cap PO 220 mg DAILY [facility] Administration Intake and Output 11/18/20 11/19/20 11/19/20 22:59 06:59 14:59 Other: Weight 76.204 kg 76.204 kg 11/19/20 00:24 11/19/20 00:24 EKG Interpretations (text) EKG shows normal sinus rhythm with nonspecific ST-T wave changes Assessment and Plan Plan: Assessment and plan #1 symptoms of progressive weakness, positive Covid 19 infection #2 acute on chronic kidney disease, it appears that his baseline creatinine is 2.0 #3 abnormality in troponin, no significant rise and fall pattern, not suggestive of acute coronary syndrome. Likely secondary to abnormal renal function #4 ischemic cardiomyopathy status post AICD #5 hypertension #6 diabetes #7 hyperlipidemia #8 hyponatremia Plan We will obtain an echocardiogram with Doppler study. Continue aspirin, decreasing the dose to once daily, Lipitor 40, Coreg. Further recommendations to follow. DNP note has been reviewed, I agree with a documented findings and plan of care. Patient was seen and examined.
[2020-11-19 14:53] LABS: Glucose,Whole Blood 118 mg/dL (75-99)
[2020-11-19] MEDS: SODIUM BICARBONATE TAB 650 MG TAB PO SCH ×2 (15:01→20:00)
[2020-11-19] MEDS: FERROUS SULFATE 325 MG TAB PO SCH ×2 (15:01→18:20)
[2020-11-19] MEDS: carvediloL 6.25 MG TAB PO SCH ×2 (15:01→18:20)
[2020-11-19] MEDS: LEVOTHYROXINE 100 MCG TAB PO SCH (15:01)
[2020-11-19] MEDS: REPAGLINIDE 1 MG TAB PO SCH ×2 (15:02→18:50)
--- NOTE | 2020-11-19 16:36 | P.HPIM ---
History of Present Illness H&P Date: 11/19/20 Chief Complaint: Tired History of presenting complaint: Pleasant 75-year-old patient of Dr. Horta. Chronic stable medical conditions include diabetes, hypothyroid, gout, peripheral neuropathy, diabetic retinopathy, chronic kidney disease, coronary artery disease with a history of bypass and AICD. Patient's is by the bedside who provides most of the history. Patient about 7 days ago on Friday every couple of days before that has started feeling a little bit tired. Motor worse on Friday. Also developed a fever. Decreased appetite diet. Had some diarrhea. Body aches. No loss of smell or taste. Patient did have COVID rapid tested on that was negative. Now becomes short of breath with minimal exertion tired rundown. Patient is tested positive for COVID 19. Initial pulse ox on room air was 98% and then did go down to 94% on 2 L. Review of systems: GEN.: Fever tired decreased appetite EYES: None HEENT: None NECK: None RESPIRATORY: As above with a slight cough CARDIOVASCULAR: [No chest pain GASTROINTESTINAL: Some diarrhea GENITOURINARY: None MUSCULOSKELETAL: [Body aches LYMPHATICS: None HEMATOLOGICAL: None PSYCHIATRY: None NEUROLOGICAL: Peripheral neuropathy Past medical history to include: Diabetes, hypothyroid, gout, diabetic peripheral neuropathy, diabetic retinopathy, chronic kidney disease stage IV, coronary artery disease with bypass, AICD Social history: No history of smoking or alcohol. . 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 EYES: Pupils equal. Conjunctiva normal. HEENT: External appearance of nose and ears normal, oral cavity grossly normal. NECK: JVD not raised; masses not palpable. HEART: First and second heart sounds are normal; no edema. LUNGS: Respiratory rate increased; decreased breath sounds. ABDOMEN: Soft, nontender, liver spleen not palpable, no masses palpable. PSYCH: [Alert and oriented x3; mood and affect tired l. NEUROLOGICAL: Cranial nerves grossly intact; no facial asymmetry, power and sensation grossly intact. LYMPHATICS: No lymph nodes palpable in the axilla and neck INVESTIGATIONS, reviewed in the clinical context: WBC 3.2 hemoglobin 9.7 platelets 164 lymphocytes 0.5 sodium 131 potassium 4.8 b un 61 creatinine 3.37 Troponin I 0.073, 0.073, 0.068 albumin 3.2 Urine protein 2+ moderate blood Coronavirus [PCR] detected EKG tracing personally reviewed by me-normal sinus rhythm Chest x-ray film personally reviewed by me-bilateral infiltrates Renal ultrasound-normal Assessment and plan: -Acute bilateral COVID 19 pneumonia. Symptoms started about a week ago. Patient be started on IV dexamethasone, subcu Lovenox, vitamin C vitamin D Pepcid and zinc. Consultation to ID and pulmonary -Acute hypoxic respiratory failure, secondary to COVID 19 pneumonia Currently on 2 L of nasal cannula -Acute myocarditis secondary to COVID 19 Telemetry. To watch for arrhythmias. Consult cardiology -AICD On telemetry -Coronary artery disease with prior history of carotid bypass Continue with Coreg, Lipitor, aspirin -Hypothyroid Continue with Synthroid -Diabetes mellitus type 2, on oral hypoglycemic Follow Accu-Cheks with sliding scale insulin -Chronic gout Continue with allopurinol -Anemia of chronic kidney disease Follow H&H and continue with erythropoietin -Diabetic retinopathy Follow clinically -Diabetic peripheral neuropathy Follow clinically -Hyponatremia from a relative decrease in solute from decreased appetite Saline IV -Metabolic acidosis due to chronic kidney disease Supplement bicarb Care was discussed with the patient and at the bedside. Questions were answered. Encouraged to sit up in a chair and use incentive spirometry. Consultation to pulmonary, ID, nephrology and cardiology. Given the complexity and severity of patient's condition expect the patient to be in the hospital at least for 2 overnights Past Medical History Past Medical History: Diabetes Mellitus, Eye Disorder, Thyroid Disorder Additional Past Medical History / Comment(s): SEE DR KENNY H&P, ANEMIA, HX GOUT, NEUROPATHY ALEX HANDS AND FEET, DIABETIC RETINOPATHY, GET INJECTIONS IN EYES, stage 4 KIDNEY DISEASE per spouse History of Any Multi-Drug Resistant Organisms: None Reported Past Surgical History: AICD, Coronary Bypass/CABG Additional Past Surgical History / Comment(s): ALEX CATARACTS, CABG X4 Past Anesthesia/Blood Transfusion Reactions: No Reported Reaction Type of Cardiac Device: AICD Device Placement Date:: 11/20/17 [facility] Past Psychological History: No Psychological Hx Reported Smoking Status: Never smoker Past Alcohol Use History: None Reported Past Drug Use History: None Reported - Past Family History Father Family Medical History: Cancer Brother(s) Family Medical History: Cancer Medications and Allergies Home Medications Medication Instructions Recorded Confirmed Type Aspirin EC [Ecotrin Low Dose] 81 mg PO BID 11/29/16 11/19/20 History Carvedilol [Coreg] 18.75 mg PO BID@1200,1800 11/29/16 11/19/20 History Ferrous Sulfate [Iron (65 MG 325 mg PO BID@1200,1800 11/29/16 11/19/20 History Elemental)] Levothyroxine Sodium [Synthroid] 100 mcg PO AC-BRKFST 11/29/16 11/19/20 History allopurinoL [Zyloprim] 100 mg PO W/SUPPER 11/29/16 11/19/20 History calcitrioL [Rocaltrol] 0.25 mcg PO WE 11/29/16 11/19/20 History Repaglinide [Prandin] 0.25 mg PO AC-BID 06/09/18 11/19/20 History Spironolactone 12.5 mg PO DAILY@1200 06/09/18 11/19/20 History Atorvastatin Calcium [Lipitor] 40 mg PO HS 11/19/20 11/19/20 History Epoetin Rizwan-Epbx [Retacrit] 4,000 units SQ Q21D 11/19/20 11/19/20 History Ergocalciferol (Vitamin D2) 1,250 mcg PO QMONTHLY 11/19/20 11/19/20 History [Vitamin D2 (50,000 Iu)] Allergies Allergy/AdvReac Type Severity Reaction Status Date / Time No Known Allergies Allergy Verified 11/19/20 08:10 Physical Exam Vitals: Vital Signs Temp Pulse Pulse Resp BP BP Pulse Ox 11/19/20 09:00 61 16 130/69 95 11/19/20 03:00 61 15 127/58 97 11/19/20 02:36 99.3 F 64 18 130/65 94 L 11/19/20 01:53 66 15 127/58 98 11/18/20 22:05 99.2 F 60 18 145/66 98 Intake and Output 11/18/20 11/19/20 11/19/20 22:59 06:59 14:59 Other: Weight 76.204 kg 76.204 kg Results CBC & Chem 7: 11/19/20 00:24 11/19/20 00:24 Labs: Abnormal Lab Results - Last 24 Hours (Table) 11/19/20 11/19/20 11/19/20 Range/Units 00:24 00:24 00:24 WBC 3.2 L (3.8-10.6) k/uL RBC 3.09 L (4.30-5.90) m/uL Hgb 9.7 L (13.0-17.5) gm/dL Hct 29.6 L (39.0-53.0) % RDW 17.2 H (11.5-15.5) % Lymphocytes # 0.5 L (1.0-4.8) k/uL Sodium 131 L (137-145) mmol/L Carbon Dioxide 19 L (22-30) mmol/L BUN 61 H (9-20) mg/dL Creatinine 3.37 H (0.66-1.25) mg/dL Glucose 147 H (74-99) mg/dL Calcium 7.4 L (8.4-10.2) mg/dL Troponin I 0.073 H* (0.000-0.034) ng/mL Total Protein 5.7 L (6.3-8.2) g/dL Albumin 3.2 L (3.5-5.0) g/dL Urine Protein (Negative) Urine Blood (Negative) Urine Mucus (None) /hpf Coronavirus (PCR) (Not Detectd) 11/19/20 11/19/20 11/19/20 Range/Units 00:24 01:52 03:18 WBC (3.8-10.6) k/uL RBC (4.30-5.90) m/uL Hgb (13.0-17.5) gm/dL Hct (39.0-53.0) % RDW (11.5-15.5) % Lymphocytes # (1.0-4.8) k/uL Sodium (137-145) mmol/L Carbon Dioxide (22-30) mmol/L BUN (9-20) mg/dL Creatinine (0.66-1.25) mg/dL Glucose (74-99) mg/dL Calcium (8.4-10.2) mg/dL Troponin I 0.073 H* (0.000-0.034) ng/mL Total Protein (6.3-8.2) g/dL Albumin (3.5-5.0) g/dL Urine Protein 2+ H (Negative) Urine Blood Moderate H (Negative) Urine Mucus Rare H (None) /hpf Coronavirus (PCR) Detected A (Not Detectd) 11/19/20 Range/Units 05:38 WBC (3.8-10.6) k/uL RBC (4.30-5.90) m/uL Hgb (13.0-17.5) gm/dL Hct (39.0-53.0) % RDW (11.5-15.5) % Lymphocytes # (1.0-4.8) k/uL Sodium (137-145) mmol/L Carbon Dioxide (22-30) mmol/L BUN (9-20) mg/dL Creatinine (0.66-1.25) mg/dL Glucose (74-99) mg/dL Calcium (8.4-10.2) mg/dL Troponin I 0.068 H* (0.000-0.034) ng/mL Total Protein (6.3-8.2) g/dL Albumin (3.5-5.0) g/dL Urine Protein (Negative) Urine Blood (Negative) Urine Mucus (None) /hpf Coronavirus (PCR) (Not Detectd) Thrombosis Risk Factor Assmnt - Choose All That Apply Any of the Below Risk Factors Present?: Yes Each Factor Represents 1 point: Obesity (BMI >25), Swollen legs (current) Other Risk Factors: Yes Each Risk Factor Represents 2 Points: Age 61-74 years Other congenital or acquired thrombophilia - If yes, enter type in comment: No Thrombosis Risk Factor Assessment Total Risk Factor Score: 4 Thrombosis Risk Factor Assessment Level: Moderate Risk
[2020-11-19 17:33] LABS: Glucose,Whole Blood 113 mg/dL (75-99)
[2020-11-19] MEDS: allopurinoL 100 MG TAB PO SCH (18:20)
[2020-11-19] MEDS: SODIUM CHLORIDE 0.9% 1,000 ML IV SCH (18:20)
[2020-11-19] MEDS: CHOLECALCIFEROL 25 MCG (1000 IU) TABLET PO SCH (18:25)
[2020-11-19] MEDS: FAMOTIDINE 20 MG TAB PO SCH (18:26)
[2020-11-19] MEDS: DEXAMETHASONE SOD PHOSPHATE 10 MG/ML 1 ML VIAL IV SCH (18:26)
[2020-11-19] MEDS: ENOXAPARIN 40 MG/0.4 ML SYRINGE SQ SCH (18:26)
[2020-11-19] MEDS: ATORVASTATIN 40 MG TAB PO SCH (19:59)
[2020-11-19 20:35] LABS: Glucose,Whole Blood 119 mg/dL (75-99)
[2020-11-20] MEDS: SODIUM CHLORIDE 0.9% 1,000 ML IV SCH ×2 (04:08→19:38)
--- NOTE | 2020-11-20 06:16 | CONS ---
CONSULTATION DATE OF SERVICE: 11/19/2020 REASON FOR CONSULTATION: COVID-19 infection. HISTORY OF PRESENT ILLNESS: The patient is a 75 -year-old male who was brought into the ER last evening for evaluation of fatigue and weakness. His symptoms have been going on for more than a week now. The patient mentioned started feeling weak and tired and no energy and the patient's symptoms have progressively gotten worse in the last one week. The patient slept all day yesterday. The patient called EMS, and the patient was too weak to transport himself with his walker the hospital. The patient denies having any headache or URI symptoms. Denies any chest pain, shortness of breath or cough. Some nausea but no vomiting. Decreased oral intake. No abdominal pain. No diarrhea. With these symptoms, the patient was evaluated by the ER physician. On arrival to the ER, the patient was afebrile. The patient initially was saturating 98% on room air but subsequently dropped his sats and currently on 3 L nasal cannula saturating about 96%. The patient did have leukopenia as well as lymphopenia. D-dimer is elevated 0.64. Creatinine was elevated at 3.37 and elevated troponin. CRP 57.3. Ness PCR came back positive. ALT and AST normal. The patient did have a chest x-ray, mild bilateral areas of infiltration, atelectasis in the lower lung fisher. The patient was admitted to the hospital. Infectious Disease was consulted for further management. REVIEW OF SYSTEMS: Positive points have been mentioned in HPI. Rest of systems are negative. PAST MEDICAL HISTORY: Diabetes mellitus, hypothyroidism, coronary artery disease. PAST SURGERY HISTORY: AICD placement, coronary artery bypass grafting, bilateral cataract surgery. SOCIAL HISTORY: No history of smoking, drinking or drug use. FAMILY HISTORY: Both father and brother with history of cancer. ALLERGIES: No known drug allergies. MEDICATIONS: The patient is currently on Zyloprim, Xanax, vitamin C, aspirin, Lipitor, Coreg, vitamin D3, dexamethasone, Lovenox, Synthroid, Narcan, Prandin, zinc sulfate. PHYSICAL EXAMINATION: VITAL SIGNS: Blood pressure 150/78 with a pulse of 51, temperature 98.3, he is 96% on 3 L nasal cannula. GENERAL DESCRIPTION: Patient is an elderly male lying in bed in no distress. No tachypnea or accessory muscles of respiration use. HEENT: Examination shows pallor, no scleral icterus. Oral mucous membrane is dry. NECK: Trachea central, no thyromegaly. LUNGS: Unlabored breathing, decreased intensity of breath sounds. No wheeze. HEART: S1-S2, regular rate and rhythm. ABDOMEN: Soft, no tenderness. No guarding or rigidity. EXTREMITIES: No edema of the feet. SKIN: No rash or mass palpable. NEUROLOGICAL: Patient is awake, alert, oriented times three. Mood and affect normal. LABS: Hemoglobin is 11.1, white count 3.2, d-dimer 0.64, creatinine is 3.37. Liver enzymes are normal. Troponin mildly elevated. CRP was 37.3. Urine is negative. DIAGNOSTIC IMPRESSION: Patient admitted to the hospital with generalized weakness, no energy in this patient whose symptoms are multifactorial with possible acute on chronic renal insufficiency, dehydration, and COVID-19 infection. However, the patient did not have significant respiratory symptoms. Did not initially have hypoxemia, but subsequently dropped his oxygen, currently requiring low-dose nasal cannula oxygen. Chest x-ray did not show the ground-glass opacity suspicious for infection. More likely he did have a mild COVID-19 infection with symptoms mostly more than a week ago and renal insufficiency will contraindicate the use of remdesivir. PLAN: 1. The patient will be started on Lovenox, dexamethasone, zinc and ascorbic acid, to continue. 2. Droplet isolation and respiratory support. 3. Gentle IV fluid. 4. We will follow on clinical condition and further adjust medication if needed. Thank you for this consultation. Will follow this patient along with you. MMODL / IJN: [id number] / JASWANT
[2020-11-20 06:17] LABS: Glucose,Whole Blood 218 mg/dL (75-99)
[2020-11-20] MEDS: REPAGLINIDE 1 MG TAB PO SCH ×2 (06:21→18:16)
[2020-11-20] MEDS: LEVOTHYROXINE 100 MCG TAB PO SCH (06:21)
[2020-11-20 08:12] LABS: Calcium 7.3 mg/dL (8.4-10.2); Magnesium 2.1 mg/dL (1.6-2.3); Potassium 5.1 mmol/L (3.5-5.1)
[2020-11-20] MEDS: ASCORBIC ACID 500 MG TAB PO SCH ×2 (09:44→19:38)
[2020-11-20] MEDS: SODIUM BICARBONATE TAB 650 MG TAB PO SCH ×3 (09:45→19:38)
[2020-11-20] MEDS: ASPIRIN 81 MG PO SCH (09:45)
[2020-11-20] MEDS: FAMOTIDINE 20 MG TAB PO SCH (09:45)
[2020-11-20] MEDS: ENOXAPARIN 40 MG/0.4 ML SYRINGE SQ SCH (09:45)
[2020-11-20] MEDS: DEXAMETHASONE SOD PHOSPHATE 10 MG/ML 1 ML VIAL IV SCH (09:45)
[2020-11-20] MEDS: ZINC SULFATE 220 MG CAP PO SCH (09:45)
--- NOTE | 2020-11-20 09:49 | P.CNPUL ---
History of Present Illness Consult date: 11/20/20 Reason for consult: dyspnea, pneumonia History of present illness: 75-year-old male patient, started having symptoms approximately a week ago when he started feeling a bit tired and fatigued. He subsequently developed fever and diminished appetite and some diarrhea. The patient tested positive for COVID 19 infection 4 days ago and this was again confirmed on 11/19/2020. The patient came into the emergency with weakness and shortness of breath. The patient is currently on 2 L of oxygen by nasal cannula. He is known to have CAD, previous bypass, aortic, chronic disease, diabetes mellitus and diabetic retinopathy and neuropathy and hypothyroidism and gout. Lactate was 0.7, there d-dimer was 0.6, white cell count was at 3.2 with a lymphopenia, creatinine was at 3.37 with a mean of 61. He is also on multivitamins. Chest x-ray showing diffuse bilateral pulmonary infiltrates. Review of Systems Constitutional: Reports fatigue, Reports fever, Reports poor appetite, Reports weakness Eyes: denies as per HPI, denies blurred vision, denies bulging eye, denies decreased vision, denies diplopia, denies discharge, denies dry eye, denies irr itation, denies itching, denies pain, denies photophobia, denies loss of peripheral vision, denies loss of vision, denies tunnel vision/blind spots Ears: deny: decreased hearing, ear discharge, earache, tinnitus Ears, nose, mouth and throat: Reports as per HPI Breasts: absent: as per HPI, gynecomastia Cardiovascular: Reports decreased exercise tolerance, Reports dyspnea on exertion Respiratory: Reports dyspnea Gastrointestinal: Reports as per HPI Genitourinary: Reports as per HPI Musculoskeletal: Reports as per HPI, Reports muscle weakness Musculoskeletal: absent: ankle pain, ankle stiffness, ankle swelling, as per HPI, elbow pain, elbow stiffness, elbow swelling, foot pain, foot stiffness, foot swelling, hand pain, hand stiffness, hand swelling, hip pain, hip stif fness, hip swelling, knee pain, knee stiffness, knee swelling, shoulder pain, shoulder stiffness, shoulder swelling, wrist pain, wrist stiffness, wrist swelling Integumentary: Reports as per HPI Neurological: Reports as per HPI, Reports weakness Psychiatric: Reports as per HPI Endocrine: Reports as per HPI, Reports fatigue Hematologic/Lymphatic: Reports as per HPI Allergic/Immunologic: Reports as per HPI Past Medical History Past Medical History: Coronary Artery Disease (CAD), Diabetes Mellitus, Eye Disorder, Renal Disease, Thyroid Disorder Additional Past Medical History / Comment(s): SEE DR KENNY H&P, ANEMIA, HX GOUT, NEUROPATHY ALEX HANDS AND FEET, DIABETIC RETINOPATHY, GET INJECTIONS IN EYES, stage 4 KIDNEY DISEASE per spouse History of Any Multi-Drug Resistant Organisms: None Reported Past Surgical History: AICD, Coronary Bypass/CABG Additional Past Surgical History / Comment(s): ALEX CATARACTS, CABG X4 Past Anesthesia/Blood Transfusion Reactions: No Reported Reaction Type of Cardiac Device: AICD Device Placement Date:: 11/20/17 [facility] Past Psychological History: No Psychological Hx Reported Smoking Status: Never smoker Past Alcohol Use History: None Reported Past Drug Use History: None Reported - Past Family History Father Family Medical History: Cancer Brother(s) Family Medical History: Cancer Medications and Allergies Home Medications Medication Instructions Recorded Confirmed Type Aspirin EC [Ecotrin Low Dose] 81 mg PO BID 11/29/16 11/19/20 History Carvedilol [Coreg] 18.75 mg PO BID@1200,1800 11/29/16 11/19/20 History Ferrous Sulfate [Iron (65 MG 325 mg PO BID@1200,1800 11/29/16 11/19/20 History Elemental)] Levothyroxine Sodium [Synthroid] 100 mcg PO AC-BRKFST 11/29/16 11/19/20 History allopurinoL [Zyloprim] 100 mg PO W/SUPPER 11/29/16 11/19/20 History calcitrioL [Rocaltrol] 0.25 mcg PO WE 11/29/16 11/19/20 History Repaglinide [Prandin] 0.25 mg PO AC-BID 06/09/18 11/19/20 History Spironolactone 12.5 mg PO DAILY@1200 06/09/18 11/19/20 History Atorvastatin Calcium [Lipitor] 40 mg PO HS 11/19/20 11/19/20 History Epoetin Rizwan-Epbx [Retacrit] 4,000 units SQ Q21D 11/19/20 11/19/20 History Ergocalciferol (Vitamin D2) 1,250 mcg PO QMONTHLY 11/19/20 11/19/20 History [Vitamin D2 (50,000 Iu)] Allergies Allergy/AdvReac Type Severity Reaction Status Date / Time No Known Allergies Allergy Verified 11/19/20 08:10 Physical Exam Vitals: Vital Signs Temp Pulse Pulse Resp BP BP BP 11/20/20 04:00 98 F 65 16 150/74 11/20/20 00:00 98.4 F 63 16 144/69 11/19/20 20:00 98.3 F 61 16 150/70 11/19/20 17:40 98.2 F 55 L 18 142/69 11/19/20 14:58 60 18 141/74 Pulse Ox 11/20/20 04:00 95 11/20/20 00:00 97 11/19/20 20:00 96 11/19/20 17:40 93 L 11/19/20 14:58 92 L Intake and Output 11/19/20 11/20/20 11/20/20 22:59 06:59 14:59 Intake Total 240 300 Balance 240 300 Intake: Intake, IV Titration 300 Amount Sodium Chloride 0.9% 1, 300 000 ml @ 60 mls/hr IV . [id number] [facility] Rx#:[id number] Oral 240 Other: Voiding Method Urinal Urinal Incontinent Incontinent # Voids 2 Weight 89.5 kg GENERAL: 75-year-old gentleman in no acute distress at the time of my examination HEENT: Head is atraumatic, normocephalic. Pupils equal, round. Sclera anicteric. Conjunctiva are clear. Mucous membranes of the mouth are moist. Neck is supple. There is no elevated jugular venous pressure. No carotid bruit is heard. HEART EXAMINATION: Heart S1, S2 normal. No murmur or gallop heard. CHEST EXAMINATION: Lungs are clear with diminished air entry to the bases bilaterally . No chest wall tenderness is noted on palpation or with deep breathing. ABDOMEN: Soft, nontender. Bowel sounds are heard. No organomegaly noted. EXTREMITIES: 2+ peripheral pulses with no evidence of peripheral edema and no calf tenderness noted. NEUROLOGIC patient is awake, alert and oriented X3. Results - Laboratory Findings CBC and BMP: 11/19/20 00:24 11/20/20 06:49 PT/INR, D-dimer PT 10.2 sec (9.0-12.0) 11/19/20 00:24 INR 1.0 (<1.2) 11/19/20 00:24 D-Dimer 0.47 mg/L FEU (<0.60) 11/20/20 06:49 Abnormal lab findings: Abnormal Labs 11/19/20 11/19/20 11/19/20 00:24 00:24 00:24 WBC 3.2 L RBC 3.09 L Hgb 9.7 L Hct 29.6 L RDW 17.2 H Lymphocytes # 0.5 L D-Dimer Sodium 131 L Carbon Dioxide 19 L BUN 61 H Creatinine 3.37 H Glucose 147 H POC Glucose (mg/dL) Calcium 7.4 L Troponin I 0.073 H* C-Reactive Protein Total Protein 5.7 L Albumin 3.2 L Urine Protein Urine Blood Urine Mucus Coronavirus (PCR) 11/19/20 11/19/20 11/19/20 00:24 01:52 03:18 WBC RBC Hgb Hct RDW Lymphocytes # D-Dimer Sodium Carbon Dioxide BUN Creatinine Glucose POC Glucose (mg/dL) Calcium Troponin I 0.073 H* C-Reactive Protein Total Protein Albumin Urine Protein 2+ H Urine Blood Moderate H Urine Mucus Rare H Coronavirus (PCR) Detected A 11/19/20 11/19/20 11/19/20 05:38 14:51 16:06 WBC RBC Hgb Hct RDW Lymphocytes # D-Dimer 0.64 H Sodium Carbon Dioxide BUN Creatinine Glucose POC Glucose (mg/dL) 118 H Calcium Troponin I 0.068 H* C-Reactive Protein Total Protein Albumin Urine Protein Urine Blood Urine Mucus Coronavirus (PCR) 11/19/20 11/19/20 11/19/20 16:06 17:32 20:34 WBC RBC Hgb Hct RDW Lymphocytes # D-Dimer Sodium Carbon Dioxide BUN Creatinine Glucose POC Glucose (mg/dL) 113 H 119 H Calcium Troponin I C-Reactive Protein 57.3 H Total Protein Albumin Urine Protein Urine Blood Urine Mucus Coronavirus (PCR) 11/20/20 11/20/20 06:16 06:49 WBC RBC Hgb Hct RDW Lymphocytes # D-Dimer Sodium 135 L Carbon Dioxide 17 L BUN 57 H Creatinine 2.85 H Glucose 203 H POC Glucose (mg/dL) 218 H Calcium 7.3 L Troponin I C-Reactive Protein 70.0 H Total Protein Albumin Urine Protein Urine Blood Urine Mucus Coronavirus (PCR) Assessment and Plan Plan: 1 acute COVID 19 related pneumonia with secondary shortness of breath and hypoxic respiratory failure the patient's symptoms of generalized weakness and dehydration 2 acute hypoxic respiratory failure currently on 2 L of oxygen by nasal cannula 3 coronary artery disease with previous positive bypass surgery 4 mild troponin leak, could be related to Covid 19 infection 5 history of AICD placement 6 hypothyroidism 7 diabetes mellitus 8 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
[2020-11-20] MEDS ORDERED: REMDESIVIR 200 MG in SODIUM CHLORIDE 0.9% 250 ML IVPB ONE (10:30)
--- NOTE | 2020-11-20 10:39 | P.PN ---
Subjective Patient is seen in follow for acute kidney injury on chronic kidney disease. Renal function better. Good urine output. Currently on 2 L nasal cannula. Denies chest pain or shortness of breath. Oral intake fair. Vital signs are stable. General: The patient appeared well nourished and normally developed. HEENT: Head exam is unremarkable. Neck is without jugular venous distension. LUNGS: Breath sounds decreased. HEART: Rate and Rhythm are regular. ABDOMEN: Soft, nondistended. EXTREMITITES: No edema. Objective - Vital Signs Vital signs: Vital Signs Temp 98 F 11/20/20 04:00 Pulse 65 11/20/20 04:00 Resp 16 11/20/20 04:00 BP 150/74 11/20/20 04:00 Pulse Ox 95 11/20/20 04:00 Intake & Output 11/19/20 11/20/20 11/20/20 18:59 06:59 18:59 Intake Total 240 300 540 Output Total 1000 Balance 240 300 -460 Weight 89.5 kg Intake: Intake, IV Titration 300 Amount Sodium Chloride 0.9% 1, 300 000 ml @ 60 mls/hr IV . [id number] [facility] Rx#:[id number] Oral 240 540 Output: Urine 1000 Other: Voiding Method Urinal Urinal Incontinent Incontinent # Voids 2 - Labs CBC & Chem 7: 11/19/20 00:24 11/20/20 06:49 Labs: Abnormal Lab Results - Last 24 Hours (Table) 11/19/20 11/19/20 11/19/20 Range/Units 14:51 16:06 16:06 D-Dimer 0.64 H (<0.60) mg/L FEU Sodium (137-145) mmol/L Carbon Dioxide (22-30) mmol/L BUN (9-20) mg/dL Creatinine (0.66-1.25) mg/dL Glucose (74-99) mg/dL POC Glucose (mg/dL) 118 H (75-99) mg/dL Calcium (8.4-10.2) mg/dL C-Reactive Protein 57.3 H (<10.0) mg/L 11/19/20 11/19/20 11/20/20 Range/Units 17:32 20:34 06:16 D-Dimer (<0.60) mg/L FEU Sodium (137-145) mmol/L Carbon Dioxide (22-30) mmol/L BUN (9-20) mg/dL Creatinine (0.66-1.25) mg/dL Glucose (74-99) mg/dL POC Glucose (mg/dL) 113 H 119 H 218 H (75-99) mg/dL Calcium (8.4-10.2) mg/dL C-Reactive Protein (<10.0) mg/L 11/20/20 Range/Units 06:49 D-Dimer (<0.60) mg/L FEU Sodium 135 L (137-145) mmol/L Carbon Dioxide 17 L (22-30) mmol/L BUN 57 H (9-20) mg/dL Creatinine 2.85 H (0.66-1.25) mg/dL Glucose 203 H (74-99) mg/dL POC Glucose (mg/dL) (75-99) mg/dL Calcium 7.3 L (8.4-10.2) mg/dL C-Reactive Protein 70.0 H (<10.0) mg/L Assessment and Plan Plan: Assessment: 1. Acute kidney injury mostly prerenal secondary to Covid 19 infection. Creatinine 3.37 on admission and is 2.85 today. No evidence of urinary retention. No hydronephrosis noted on kidney ultrasound. 2. 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 Creatinine 2.0 in August 2020. 3. Covid 19 infection. Maintained on steroids, remdesivir, zinc. 4. Diabetes mellitus. 5. Metabolic acidosis secondary to acute kidney injury and IV fluids. Maintained on oral bicarbonate. 6. Hyponatremia secondary to acute kidney injury. Possible SIADH from respiratory infection. better. Urine sodium 30 and urine osmolality 372. Plan: Maintain normal saline at 60 mL an hour. Increase dose of bicarb. Encourage oral intake. Repeat electrolytes in the morning.
[2020-11-20 11:40] LABS: Glucose,Whole Blood 244 mg/dL (75-99)
[2020-11-20] MEDS: CHOLECALCIFEROL 25 MCG (1000 IU) TABLET PO SCH (12:28)
[2020-11-20] MEDS: FERROUS SULFATE 325 MG TAB PO SCH ×2 (12:29→18:16)
[2020-11-20] MEDS: carvediloL 6.25 MG TAB PO SCH ×2 (12:29→18:16)
--- NOTE | 2020-11-20 13:43 | P.PN ---
Subjective This is a pleasant 75-year-old male past medical history significant for coronary artery disease s/p bypass grafting, ischemic cardiomyopathy s/p AICD, chronic systolic heart failure, diabetes mellitus, hypertension and dyslipidemia. He follows in the office with Dr. Jackson. He is currently being treated for COVID 19. He is seen sitting up in bed in no acute distress. He continues to feel tired and weak. He has no symptoms of chest pain, shortness of breath, dizziness or palpitations. Blood pressure 158/73 heart rate 66 afebrile maintaining oxygen saturation on nasal cannula. Laboratory data reviewed, d- dimer 0.47, sodium 135, potassium 5.1, creatinine 2.85 and magnesium 2.1. Currently maintained on aspirin 81 mg daily, atorvastatin 40 mg daily and carvedilol 18.75 mg twice a day. Most recent echocardiogram obtained in 2018 revealed impaired LV systolic function with EF 40%. GENERAL: Well-appearing, well-nourished and in no acute distress. ASSESSMENT COVID 19 Acute on chronic kidney disease Troponin leak secondary to Covid, not primary myocardial injury Ischemic cardiomyopathy s/p AICD Chronic systolic heart failure, clinically euvolemic Hypertension Coronary artery disease s/p bypass grafting Dyslipidemia Diabetes mellitus PLAN Echocardiogram will be obtained and reviewed. Ongoing treatment of acute COVID 19 infection. If no change in LV function we will follow along as needed, follow up with Dr. Jackson upon discharge. Nurse Practitioner note has been reviewed, I agree with a documented findings and plan of care. Patient was seen and examined. Objective - Vital Signs Vital signs: Vital Signs Temp 97.8 F 11/20/20 12:30 Pulse 66 11/20/20 12:30 Resp 16 11/20/20 12:30 BP 158/73 11/20/20 12:30 Pulse Ox 94 L 11/20/20 12:30 Intake & Output 11/19/20 11/20/20 11/20/20 18:59 06:59 18:59 Intake Total 240 300 540 Output Total 1000 Balance 240 300 -460 Weight 89.5 kg Intake: Intake, IV Titration 300 Amount Sodium Chloride 0.9% 1, 300 000 ml @ 60 mls/hr IV . [id number] [facility] Rx#:[id number] Oral 240 540 Output: Urine 1000 Other: Voiding Method Urinal Urinal Urinal Incontinent Incontinent Incontinent # Voids 2 - Labs CBC & Chem 7: 11/19/20 00:24 11/20/20 06:49 Labs: Abnormal Lab Results - Last 24 Hours (Table) 11/19/20 11/19/20 11/19/20 Range/Units 14:51 16:06 16:06 D-Dimer 0.64 H (<0.60) mg/L FEU Sodium (137-145) mmol/L Carbon Dioxide (22-30) mmol/L BUN (9-20) mg/dL Creatinine (0.66-1.25) mg/dL Glucose (74-99) mg/dL POC Glucose (mg/dL) 118 H (75-99) mg/dL Calcium (8.4-10.2) mg/dL C-Reactive Protein 57.3 H (<10.0) mg/L 11/19/20 11/19/20 11/20/20 Range/Units 17:32 20:34 06:16 D-Dimer (<0.60) mg/L FEU Sodium (137-145) mmol/L Carbon Dioxide (22-30) mmol/L BUN (9-20) mg/dL Creatinine (0.66-1.25) mg/dL Glucose (74-99) mg/dL POC Glucose (mg/dL) 113 H 119 H 218 H (75-99) mg/dL Calcium (8.4-10.2) mg/dL C-Reactive Protein (<10.0) mg/L 11/20/20 11/20/20 Range/Units 06:49 11:35 D-Dimer (<0.60) mg/L FEU Sodium 135 L (137-145) mmol/L Carbon Dioxide 17 L (22-30) mmol/L BUN 57 H (9-20) mg/dL Creatinine 2.85 H (0.66-1.25) mg/dL Glucose 203 H (74-99) mg/dL POC Glucose (mg/dL) 244 H (75-99) mg/dL Calcium 7.3 L (8.4-10.2) mg/dL C-Reactive Protein 70.0 H (<10.0) mg/L
[2020-11-20 16:57] LABS: Glucose,Whole Blood 317 mg/dL (75-99)
--- NOTE | 2020-11-20 17:01 | ECHOF ---
Referral Reason:elev trop MEASUREMENTS -------- HEIGHT: 170.2 cm WEIGHT: 89.4 kg BP: 118/58 IVSd: 0.8 cm (0.6 - 1.1) LVIDd: 5.5 cm (3.9 - 5.3) LVPWd: 1.2 cm (0.6 - 1.1) EDV(Teich): 146 ml IVSs: 1.5 cm LVIDs: 3.5 cm LVPWs: 1.5 cm %IVS Thck: 85 % ESV(Teich): 51 ml EF(Teich): 65 % %FS: 36 % SV(Teich): 95 ml RVIDd: 2.4 cm (< 3.3) Ao Diam: 3.5 cm (2.0 - 3.7) LA Diam: 4.2 cm (2.7 - 3.8) AV Cusp: 2.0 cm (1.5 - 2.6) EPSS: 1.7 cm MV E Chucky: 0.72 m/s MV DecT: 226 ms MV Dec Linn: 3.2 m/s MV A Chucky: 0.78 m/s MV E/A Ratio: 0.92 MV PHT: 66 ms MR Vmax: 1.10 m/s MR maxP.86 mmHg AV Vmax: 1.16 m/s AV maxP.41 mmHg AR Vmax: 1.87 m/s AR maxP.05 mmHg AR PHT: 408 ms AR Dec Time: 1406 ms AR Dec Linn: 1.3 m/s TR Vmax: 2.34 m/s TR maxP.84 mmHg RAP: 5.00 mmHg RVSP: 26.84 mmHg MV EF SLOPE: 73.08 mm/s (70 - 150) MV EXCURSION: 14.23 mm (> 18.000) FINDINGS -------- AICD This was a technically difficult study with suboptimal views. The left ventricular size is normal. There is mild concentric left ventricular hypertrophy. Overa ll left ventricular systolic function is low-normal with, an EF between 50 - 55 %. Left ventricular fillimg pressure cannot be estimated due to paced rhythm. The right ventricle is normal in size. The left atrial size is normal. The right atrial size is normal. There is a very turbulent flow seen. Cannot exclude possible shunt or IVC flow. Was not able to visua lize the IVC from the subcoastals. The aortic valve is trileaflet and appears structurally normal. The mitral valve is normal. Mild mitral regurgitation is present. The tricuspid valve appears structurally normal. Mild tricuspid regurgitation present. Right vent ricular systolic pressure is normal at < 35 mmHg. There is no pulmonic regurgitation present. The aortic root size is normal. IVC Not well visulized. There is no pericardial effusion. CONCLUSIONS -------- 1. AICD 2. The left ventricular size is normal. 3. There is mild concentric left ventricular hypertrophy. 4. Overall left ventricular systolic function is low-normal with, an EF between 50 - 55 %. 5. Left ventricular fillimg pressure cannot be estimated due to paced rhythm. 6. There is a very turbulent flow seen. Cannot exclude possible shunt or IVC flow. Was not able to vi sualize the IVC from the subcoastals. 7. Mild mitral regurgitation is present. 8. Mild tricuspid regurgitation present. 9. There is no pericardial effusion. CHAIN REPAIRER: Iram Nix, SHAWN
--- NOTE | 2020-11-20 18:05 | PN ---
PROGRESS NOTE DATE OF SERVICE: 11/20/2020 REASON FOR FOLLOWUP: COVID-19 infection. INTERVAL HISTORY: The patient is currently afebrile. The patient is feeling slightly better today. He is breathing more comfortably. The patient denies having any chest pain. Minimal cough. No nausea, no vomiting, no abdominal pain or diarrhea. PHYSICAL EXAMINATION: Blood pressure 158/73 with a pulse of 66, temperature 97.8. He is 94% on 4 L nasal cannula. General description is an elderly male lying in bed in no distress. RESPIRATORY SYSTEM: Unlabored breathing with decreased intensity of breath sounds. No wheeze. HEART: S1, S2. Regular rate and rhythm. ABDOMEN: Soft. No tenderness. LABS: D-dimer has normalized. BUN of 57, creatinine is 2.95. DIAGNOSTIC IMPRESSION AND PLAN: Patient admitted to hospital with generalized weakness, no energy, which is likely multifactorial, possible dehydration in this patient who did have a component of COVID- 19 infection. Patient clinically responded to dexamethasone, Lovenox, zinc and ascorbic acid. To continue and monitor clinical course closely. Continue supportive care. MMODL / IJN: [id number] /
[2020-11-20] MEDS: allopurinoL 100 MG TAB PO SCH (18:16)
[2020-11-20] MEDS: ATORVASTATIN 40 MG TAB PO SCH (19:38)
[2020-11-20 20:17] LABS: Glucose,Whole Blood 289 mg/dL (75-99)
[2020-11-20] MEDS: INSULIN ASPART (NovoLOG) 100 UNIT/ML VIAL SQ SCH (21:35)
--- NOTE | 2020-11-20 22:19 | P.PN ---
Progress Note - Text Progress Note Date: 11/20/20 Chief Complaint: Tired History of presenting complaint: Pleasant 75-year-old patient of Dr. Horta. Chronic stable medical conditions include diabetes, hypothyroid, gout, peripheral neuropathy, diabetic retinopathy, chronic kidney disease, coronary artery disease with a history of bypass and AICD. Patient's is by the bedside who provides most of the history. Patient about 7 days ago on Friday every couple of days before that has started feeling a little bit tired. Motor worse on Friday. Also developed a fever. Decreased appetite diet. Had some diarrhea. Body aches. No loss of smell or taste. Patient did have COVID rapid tested on that was negative. Now becomes short of breath with minimal exertion tired rundown. Patient is tested positive for COVID 19. Initial pulse ox on room air was 98% and then did go down to 94% on 2 L. Admitted with acute bilateral COVID 19 pneumonitis, acute hypoxic respiratory failure, acute myocarditis. Placed on dexamethasone Lovenox. Today: Reclining in bed. A bit more cheerful. Some shortness of breath. Did eat some. Remdesivir ordered by pulmonary. Review of systems: Was done for constitutional, cardiovascular, GI, pulmonary. relevant finding as above Active Medications Allopurinol (Allopurinol 100 Mg Tab) 100 mg PO W/SUPPER [facility] Last Admin: 11/20/20 18:16 Dose: 100 mg Documented by: Alprazolam (Alprazolam 0.25 Mg Tab) 0.25 mg PO DAILY PRN PRN Reason: Anxiety Last Admin: 11/19/20 07:44 Dose: 0.25 mg Documented by: Ascorbic Acid (Ascorbic Acid 500 Mg Tab) 500 mg PO BID [facility] Last Admin: 11/20/20 19:38 Dose: 500 mg Documented by: Aspirin (Aspirin 81 Mg) 81 mg PO DAILY [facility] Last Admin: 11/20/20 09:45 Dose: 81 mg Documented by: Atorvastatin Calcium (Atorvastatin 40 Mg Tab) 40 mg PO HS [facility] Last Admin: 11/20/20 19:38 Dose: 40 mg Documented by: Carvedilol (Carvedilol 6.25 Mg Tab) 18.75 mg PO BID@1200,1800 [facility] Last Admin: 11/20/20 18:16 Dose: 18.75 mg Documented by: Cholecalciferol (Cholecalciferol 25 Mcg (1000 Iu) Tablet) 100 mcg PO DAILY [facility] Last Admin: 11/20/20 12:28 Dose: 100 mcg Documented by: Dexamethasone Sodium Phosphate (Dexamethasone Sod Phosphate 10 Mg/Ml 1 Ml Vial) 6 mg IV DAILY [facility] Last Admin: 11/20/20 09:45 Dose: 6 mg Documented by: Enoxaparin Sodium (Enoxaparin 40 Mg/0.4 Ml Syringe) 40 mg SQ DAILY [facility] Last Admin: 11/20/20 09:45 Dose: 40 mg Documented by: Famotidine (Famotidine 20 Mg Tab) 20 mg PO DAILY [facility] Last Admin: 11/20/20 09:45 Dose: 20 mg Documented by: Ferrous Sulfate (Ferrous Sulfate 325 Mg Tab) 325 mg PO BID@1200,1800 [facility] Last Admin: 11/20/20 18:16 Dose: 325 mg Documented by: Sodium Chloride (Saline 0.9%) 1,000 mls @ 60 mls/hr IV .[id number] [facility] Last Admin: 11/20/20 19:38 Dose: 60 mls/hr Documented by: Remdesivir 100 mg/ Sodium (Chloride) 250 mls @ 250 mls/hr IVPB DAILY@1100 [facility] Stop: 11/24/20 11:59 Insulin Aspart (Insulin Aspart (Novolog) 100 Unit/Ml Vial) 0 unit SQ ACHS [facility]; Protocol Last Admin: 11/20/20 21:35 Dose: 5 unit Documented by: Levothyroxine Sodium (Levothyroxine 100 Mcg Tab) 100 mcg PO 0630 [facility] Last Admin: 11/20/20 06:21 Dose: 100 mcg Documented by: Naloxone HCl (Naloxone 0.4 Mg/Ml 1 Ml Vial) 0.2 mg IV Q2M PRN PRN Reason: Opioid Reversal Repaglinide (Repaglinide 1 Mg Tab) 0.25 mg PO AC-BID [facility] Last Admin: 11/20/20 18:16 Dose: 0.25 mg Documented by: Sodium Bicarbonate (Sodium Bicarbonate Tab 650 Mg Tab) 650 mg PO TID [facility] Last Admin: 11/20/20 19:38 Dose: 650 mg Documented by: Zinc Sulfate (Zinc Sulfate 220 Mg Cap) 220 mg PO DAILY [facility] Last Admin: 11/20/20 09:45 Dose: 220 mg Documented by: Past medical history to include: Diabetes, hypothyroid, gout, diabetic peripheral neuropathy, diabetic retinopathy, chronic kidney disease stage IV, coronary artery disease with bypass, AICD Social history: No history of smoking or alcohol. . 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 LUNGS: Respiratory rate increased; . PSYCH: [Alert and oriented x3; mood and affect normal NEUROLOGICAL: Cranial nerves grossly intact; no facial asymmetry, moving all 4 limbs Rest of exam per pulmonary and nursing INVESTIGATIONS, reviewed in the clinical context: 2-D echocardiogram: EF 50-55% November 20 Potassium 5.1 creatinine 2.85 d-dimer 0.47 CRP 70 WBC 3.2 hemoglobin 9.7 platelets 164 lymphocytes 0.5 sodium 131 potassium 4.8 bun 61 creatinine 3.37 Troponin I 0.073, 0.073, 0.068 albumin 3.2 Urine protein 2+ moderate blood Coronavirus [PCR] detected EKG tracing personally reviewed by me-normal sinus rhythm Chest x-ray film personally reviewed by me-bilateral infiltrates Renal ultrasound-normal Assessment and plan: -Acute bilateral COVID 19 pneumonia. Symptoms started about a week ago. on IV dexamethasone, subcu Lovenox, vitamin C vitamin D Pepcid and zinc. Started today on Remdesivir -Acute hypoxic respiratory failure, secondary to COVID 19 pneumonia-some worsening Currently on 4 L of nasal cannula -Acute myocarditis secondary to COVID 19 Telemetry. To watch for arrhythmias. Consult cardiology -AICD On telemetry -Coronary artery disease with prior history of carotid bypass Continue with Coreg, Lipitor, aspirin -Hypothyroid Continue with Synthroid -Diabetes mellitus type 2, on oral hypoglycemic Follow Accu-Cheks with sliding scale insulin -Chronic gout Continue with allopurinol -Anemia of chronic kidney disease Follow H&H and continue with erythropoietin -Diabetic retinopathy Follow clinically -Diabetic peripheral neuropathy Follow clinically -Hyponatremia from a relative decrease in solute from decreased appetite- improving Saline IV -Metabolic acidosis due to chronic kidney disease Supplement bicarb Discussed with the patient. Continue current medication treatment plan.
[2020-11-21 06:26] LABS: Glucose,Whole Blood 275 mg/dL (75-99)
[2020-11-21] MEDS: LEVOTHYROXINE 100 MCG TAB PO SCH (06:28)
[2020-11-21] MEDS: REPAGLINIDE 1 MG TAB PO SCH ×2 (06:28→17:18)
[2020-11-21] MEDS: INSULIN ASPART (NovoLOG) 100 UNIT/ML VIAL SQ SCH ×4 (06:28→20:31)
[2020-11-21 08:15] LABS: Calcium 7.1 mg/dL (8.4-10.2); Potassium 4.8 mmol/L (3.5-5.1)
--- NOTE | 2020-11-21 09:03 | PN ---
PROGRESS NOTE Mr. Pena is a 75-year-old male with a history of coronary artery disease, history of cardiomyopathy, status post ICD implantation who presented with symptoms of progressive dyspnea and was found to have evidence of COVID-19 infection. He continues to feel weak, but his breathing is stable. He is denying any chest pain. He has mild cough. No wheezing. No nausea. No vomiting. He had an echocardiogram revealed ejection fraction of 50% to 55%. He had mild tricuspid and mitral regurgitation. He continues to be at this time on aspirin once a day, Lipitor 40 mg daily, Coreg 18.75 mg twice a day, Lovenox subcu, levothyroxine, Prandin, remdesivir. PHYSICAL EXAMINATION: Blood pressure 127/60 with the heart rate in the 60s. LUNGS: Clear. HEART: Regular rate and rhythm. S1, S2. No S3 with systolic murmur. No diastolic murmur. No rub. ABDOMEN: Soft, nontender. EXTREMITIES: No edema. LAB DATA: Lab data revealed BUN and creatinine 58 and 2.7. Potassium 4.8. His creatinine appears back to his baseline. IMPRESSION: 1. COVID-19 infection. 2. History of cardiomyopathy, status post ICD implantation. 3. Chronic kidney disease, stable. 4. Hyperlipidemia. 5. Status post coronary artery bypass grafting. 6. Mild troponin elevation related to the infectious process. RECOMMENDATION: Will continue present therapy. At this time, he is stable from the cardiac standpoint. We will see him on as-needed basis. Please feel free to call us for any question. MMODL / IJN: [id number] /
[2020-11-21] MEDS: CHOLECALCIFEROL 25 MCG (1000 IU) TABLET PO SCH (10:12)
[2020-11-21] MEDS: ENOXAPARIN 40 MG/0.4 ML SYRINGE SQ SCH (10:12)
[2020-11-21] MEDS: ZINC SULFATE 220 MG CAP PO SCH (10:12)
[2020-11-21] MEDS: ASPIRIN 81 MG PO SCH (10:13)
[2020-11-21] MEDS: ASCORBIC ACID 500 MG TAB PO SCH ×2 (10:13→20:32)
[2020-11-21] MEDS: DEXAMETHASONE SOD PHOSPHATE 10 MG/ML 1 ML VIAL IV SCH (10:13)
--- NOTE | 2020-11-21 10:13 | P.PN ---
Subjective Progress Note Date: 11/21/20 75-year-old male patient, started having symptoms approximately a week ago when he started feeling a bit tired and fatigued. He subsequently developed fever and diminished appetite and some diarrhea. The patient tested positive for COVID 19 infection 4 days ago and this was again confirmed on 11/19/2020. The patient came into the emergency with weakness and shortness of breath. The patient is currently on 2 L of oxygen by nasal cannula. He is known to have CAD, previous bypass, aortic, chronic disease, diabetes mellitus and diabetic retinopathy and neuropathy and hypothyroidism and gout. Lactate was 0.7, there d-dimer was 0.6, white cell count was at 3.2 with a lymphopenia, creatinine was at 3.37 with a mean of 61. He is also on multivitamins. Chest x-ray showing diffuse bilateral pulmonary infiltrates. On today's evaluation of the patient is currently on oxygen at 4 L per minute. The patient is quite comfortable. Pulse ox is around 95% and FiO2 can be obviously weaned off. The patient is being seen for a follow-up. The patient is currently being treated with Decadron 6 mg IV every 24 hours. The patient is also on Lovenox 40 mg subcu daily and the patient is also on Remdesivir day #2. No follow-up chest x-rays available from today. The rest of the labs are showing chronic kidney disease with a creatinine of 2.7. The patient has chronic metabolic acidosis which is of a non-anion gap type. Objective - Vital Signs Vital signs: Vital Signs Temp 98.1 F 11/20/20 19:47 Pulse 62 11/21/20 03:46 Resp 16 11/21/20 03:46 BP 127/62 11/21/20 03:46 Pulse Ox 95 11/21/20 03:46 Intake & Output 11/20/20 11/21/20 11/21/20 18:59 06:59 18:59 Intake Total 1020 360 240 Output Total 1550 650 Balance -530 -290 240 Weight 84.5 kg Intake: Intake, IV Titration 360 Amount Sodium Chloride 0.9% 1, 360 000 ml @ 60 mls/hr IV . [id number] [facility] Rx#:[id number] Oral 1020 240 Output: Urine 1550 650 Other: Voiding Method Urinal Urinal Incontinent Incontinent # Voids 1 - Exam GENERAL: 75-year-old gentleman in no acute distress at the time of my examination HEENT: Head is atraumatic, normocephalic. Pupils equal, round. Sclera anicteric. Conjunctiva are clear. Mucous membranes of the mouth are moist. Neck is supple. There is no elevated jugular venous pressure. No carotid bruit is heard. HEART EXAMINATION: Heart S1, S2 normal. No murmur or gallop heard. CHEST EXAMINATION: Lungs are clear with diminished air entry to the bases bilaterally . No chest wall tenderness is noted on palpation or with deep breathing. ABDOMEN: Soft, nontender. Bowel sounds are heard. No organomegaly noted. EXTREMITIES: 2+ peripheral pulses with no evidence of peripheral edema and no calf tenderness noted. NEUROLOGIC patient is awake, alert and oriented X3. - Labs CBC & Chem 7: 11/19/20 00:24 11/21/20 05:38 Labs: Abnormal Lab Results - Last 24 Hours (Table) 11/20/20 11/20/20 11/20/20 Range/Units 11:35 16:56 20:16 Sodium (137-145) mmol/L Chloride (98-107) mmol/L Carbon Dioxide (22-30) mmol/L BUN (9-20) mg/dL Creatinine (0.66-1.25) mg/dL Glucose (74-99) mg/dL POC Glucose (mg/dL) 244 H 317 H 289 H (75-99) mg/dL Calcium (8.4-10.2) mg/dL 11/21/20 11/21/20 Range/Units 05:38 06:24 Sodium 136 L (137-145) mmol/L Chloride 108 H (98-107) mmol/L Carbon Dioxide 18 L (22-30) mmol/L BUN 58 H (9-20) mg/dL Creatinine 2.70 H (0.66-1.25) mg/dL Glucose 236 H (74-99) mg/dL POC Glucose (mg/dL) 275 H (75-99) mg/dL Calcium 7.1 L (8.4-10.2) mg/dL Assessment and Plan Plan: 1 acute COVID 19 related pneumonia with secondary shortness of breath and hypoxic respiratory failure the patient's symptoms of generalized weakness and dehydration, currently on 4 L of oxygen by nasal cannula 2 acute hypoxic respiratory failure currently on 2 L of oxygen by nasal cannula 3 coronary artery disease with previous positive bypass surgery 4 mild troponin leak, could be related to Covid 19 infection 5 history of AICD placement 6 hypothyroidism 7 diabetes mellitus 8 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 Resume all medications Cardiology consultation nephrology consultationIs appreciated We'll continue to follow
[2020-11-21] MEDS: REMDESIVIR 100 MG in SODIUM CHLORIDE 0.9% 250 ML IVPB SCH (10:14)
[2020-11-21] MEDS: FAMOTIDINE 20 MG TAB PO SCH (10:14)
[2020-11-21] MEDS: SODIUM BICARBONATE TAB 650 MG TAB PO SCH ×3 (10:14→20:32)
--- NOTE | 2020-11-21 10:55 | P.PN ---
Subjective Patient is seen in follow for acute kidney injury on chronic kidney disease. Renal function better. Good urine output. Currently on 4 L nasal cannula. Denies chest pain or shortness of breath. Oral intake fair. No active complaints. Vital signs are stable. General: The patient appeared well nourished and normally developed. HEENT: Head exam is unremarkable. Neck is without jugular venous distension. LUNGS: Breath sounds decreased. HEART: Rate and Rhythm are regular. ABDOMEN: Soft, nondistended. EXTREMITITES: No edema. Objective - Vital Signs Vital signs: Vital Signs Temp 98.1 F 11/21/20 08:00 Pulse 61 11/21/20 08:00 Resp 18 11/21/20 08:00 BP 131/69 11/21/20 08:00 Pulse Ox 92 L 11/21/20 08:00 Intake & Output 11/20/20 11/21/20 11/21/20 18:59 06:59 18:59 Intake Total 1020 360 240 Output Total 1550 650 Balance -530 -290 240 Weight 84.5 kg Intake: Intake, IV Titration 360 Amount Sodium Chloride 0.9% 1, 360 000 ml @ 60 mls/hr IV . [id number] [facility] Rx#:[id number] Oral 1020 240 Output: Urine 1550 650 Other: Voiding Method Urinal Urinal Urinal Incontinent Incontinent Incontinent # Voids 1 - Labs CBC & Chem 7: 11/19/20 00:24 11/21/20 05:38 Labs: Abnormal Lab Results - Last 24 Hours (Table) 11/20/20 11/20/20 11/20/20 Range/Units 11:35 16:56 20:16 Sodium (137-145) mmol/L Chloride (98-107) mmol/L Carbon Dioxide (22-30) mmol/L BUN (9-20) mg/dL Creatinine (0.66-1.25) mg/dL Glucose (74-99) mg/dL POC Glucose (mg/dL) 244 H 317 H 289 H (75-99) mg/dL Calcium (8.4-10.2) mg/dL 11/21/20 11/21/20 Range/Units 05:38 06:24 Sodium 136 L (137-145) mmol/L Chloride 108 H (98-107) mmol/L Carbon Dioxide 18 L (22-30) mmol/L BUN 58 H (9-20) mg/dL Creatinine 2.70 H (0.66-1.25) mg/dL Glucose 236 H (74-99) mg/dL POC Glucose (mg/dL) 275 H (75-99) mg/dL Calcium 7.1 L (8.4-10.2) mg/dL Assessment and Plan Plan: Assessment: 1. Acute kidney injury mostly prerenal secondary to Covid 19 infection. Creatinine 3.37 on admission and is 2.7 today. No evidence of urinary retention. No hydronephrosis noted on kidney ultrasound. 2. 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 Creatinine 2.0 in August 2020. 3. Covid 19 infection. Maintained on steroids, remdesivir, zinc. 4. Diabetes mellitus. 5. Metabolic acidosis secondary to acute kidney injury and IV fluids. Maintained on oral bicarbonate. 6. Hyponatremia secondary to acute kidney injury. Possible SIADH from respiratory infection. better. Urine sodium 30 and urine osmolality 372. 7. Anemia of chronic kidney disease. Plan: Maintain normal saline at 60 mL an hour. Encourage oral intake. Add Aranesp. Repeat electrolytes in the morning. Wean FiO2.
[2020-11-21 11:32] LABS: Glucose,Whole Blood 273 mg/dL (75-99)
[2020-11-21] MEDS: carvediloL 6.25 MG TAB PO SCH ×2 (12:55→17:19)
[2020-11-21] MEDS: FERROUS SULFATE 325 MG TAB PO SCH ×2 (12:55→17:18)
[2020-11-21] MEDS: SODIUM CHLORIDE 0.9% 1,000 ML IV SCH (13:08)
[2020-11-21] MEDS: DARBEPOETIN ALFA 40 MCG/0.4 ML SYRINGE SQ SCH (16:04)
[2020-11-21 16:52] LABS: Glucose,Whole Blood 292 mg/dL (75-99)
[2020-11-21] MEDS: allopurinoL 100 MG TAB PO SCH (17:18)
--- NOTE | 2020-11-21 19:58 | PN ---
PROGRESS NOTE DATE OF SERVICE: 11/21/2020 REASON FOR FOLLOWUP: COVID-19 infection. INTERVAL HISTORY: The patient is currently afebrile. Complaining of shortness of breath on exertion; no worsening, though. No chest pain. Cough but no sputum production. No abdominal pain or diarrhea. PHYSICAL EXAMINATION: Blood pressure 148/70 with a pulse of 63, temperature 97.6. He is 94% on 4 L nasal cannula. General description is an elderly male up in the bed in no distress. RESPIRATORY SYSTEM: Unlabored breathing with decreased intensity of breath sounds. No wheeze. HEART: S1, S2. Regular rate and rhythm. ABDOMEN: Soft. No tenderness. LABS: BUN of 58, creatinine is 2.70. DIAGNOSTIC IMPRESSION AND PLAN: Patient with acute COVID-19 infection in this patient who seems to have shown minimal clinical improvement, currently on Aranesp, Lovenox, remdesivir; to continue and monitor his clinical course closely. Continue with supportive care. MMODL / IJN: [id number] /
[2020-11-21 20:02] LABS: Glucose,Whole Blood 291 mg/dL (75-99)
[2020-11-21] MEDS: ATORVASTATIN 40 MG TAB PO SCH (20:31)
[2020-11-21] MEDS: ALPRAZolam 0.25 MG TAB PO PRN (20:31)
--- NOTE | 2020-11-21 20:58 | P.PN ---
Progress Note - Text Progress Note Date: 11/21/20 Chief Complaint: Tired History of presenting complaint: Pleasant 75-year-old patient of Dr. Horta. Chronic stable medical conditions include diabetes, hypothyroid, gout, peripheral neuropathy, diabetic retinopathy, chronic kidney disease, coronary artery disease with a history of bypass and AICD. Patient's is by the bedside who provides most of the history. Patient about 7 days ago on Friday every couple of days before that has started feeling a little bit tired. Motor worse on Friday. Also developed a fever. Decreased appetite diet. Had some diarrhea. Body aches. No loss of smell or taste. Patient did have COVID rapid tested on that was negative. Now becomes short of breath with minimal exertion tired rundown. Patient is tested positive for COVID 19. Initial pulse ox on room air was 98% and then did go down to 94% on 2 L. Admitted with acute bilateral COVID 19 pneumonitis, acute hypoxic respiratory failure, acute myocarditis. Placed on dexamethasone Lovenox. IV Remdesivir Today: Breathing better today. Oral intake is improving. On 4 L nasal cannula. More awake. Review of systems: Was done for constitutional, cardiovascular, GI, pulmonary. relevant finding as above Active Medications Allopurinol (Allopurinol 100 Mg Tab) 100 mg PO W/SUPPER [facility] Last Admin: 11/21/20 17:18 Dose: 100 mg Documented by: Alprazolam (Alprazolam 0.25 Mg Tab) 0.25 mg PO DAILY PRN PRN Reason: Anxiety Last Admin: 11/21/20 20:31 Dose: 0.25 mg Documented by: Ascorbic Acid (Ascorbic Acid 500 Mg Tab) 500 mg PO BID [facility] Last Admin: 11/21/20 20:32 Dose: 500 mg Documented by: Aspirin (Aspirin 81 Mg) 81 mg PO DAILY [facility] Last Admin: 11/21/20 10:13 Dose: 81 mg Documented by: Atorvastatin Calcium (Atorvastatin 40 Mg Tab) 40 mg PO HS [facility] Last Admin: 11/21/20 20:31 Dose: 40 mg Documented by: Carvedilol (Carvedilol 6.25 Mg Tab) 18.75 mg PO BID@1200,1800 [facility] Last Admin: 11/21/20 17:19 Dose: 18.75 mg Documented by: Cholecalciferol (Cholecalciferol 25 Mcg (1000 Iu) Tablet) 100 mcg PO DAILY [facility] Last Admin: 11/21/20 10:12 Dose: 100 mcg Documented by: Darbepoetin Rizwan (Darbepoetin Rizwan 40 Mcg/0.4 Ml Syringe) 40 mcg SQ Q7D [facility] Last Admin: 11/21/20 16:04 Dose: 40 mcg Documented by: Dexamethasone Sodium Phosphate (Dexamethasone Sod Phosphate 10 Mg/Ml 1 Ml Vial) 6 mg IV DAILY [facility] Last Admin: 11/21/20 10:13 Dose: 6 mg Documented by: Enoxaparin Sodium (Enoxaparin 30 Mg/0.3 Ml Syringe) 30 mg SQ DAILY [facility] Famotidine (Famotidine 20 Mg Tab) 20 mg PO DAILY [facility] Last Admin: 11/21/20 10:14 Dose: 20 mg Documented by: Ferrous Sulfate (Ferrous Sulfate 325 Mg Tab) 325 mg PO BID@1200,1800 [facility] Last Admin: 11/21/20 17:18 Dose: 325 mg Documented by: Sodium Chloride (Saline 0.9%) 1,000 mls @ 60 mls/hr IV .[id number] [facility] Last Admin: 11/21/20 13:08 Dose: 60 mls/hr Documented by: Remdesivir 100 mg/ Sodium (Chloride) 250 mls @ 250 mls/hr IVPB DAILY@1100 [facility] Stop: 11/24/20 11:59 Last Admin: 11/21/20 10:14 Dose: 250 mls/hr Documented by: Insulin Aspart (Insulin Aspart (Novolog) 100 Unit/Ml Vial) 0 unit SQ ACHS [facility]; Protocol Last Admin: 11/21/20 20:31 Dose: 5 unit Documented by: Levothyroxine Sodium (Levothyroxine 100 Mcg Tab) 100 mcg PO 0630 [facility] Last Admin: 11/21/20 06:28 Dose: 100 mcg Documented by: Naloxone HCl (Naloxone 0.4 Mg/Ml 1 Ml Vial) 0.2 mg IV Q2M PRN PRN Reason: Opioid Reversal Repaglinide (Repaglinide 1 Mg Tab) 0.25 mg PO AC-BID [facility] Last Admin: 11/21/20 17:18 Dose: 0.25 mg Documented by: Sodium Bicarbonate (Sodium Bicarbonate Tab 650 Mg Tab) 650 mg PO TID [facility] Last Admin: 11/21/20 20:32 Dose: 650 mg Documented by: Zinc Sulfate (Zinc Sulfate 220 Mg Cap) 220 mg PO DAILY [facility] Last Admin: 11/21/20 10:12 Dose: 220 mg Documented by: Past medical history to include: Diabetes, hypothyroid, gout, diabetic peripheral neuropathy, diabetic retinopathy, chronic kidney disease stage IV, coronary artery disease with bypass, AICD Social history: No history of smoking or alcohol. . 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 PSYCH: [Alert and oriented x3; mood and affect normal NEUROLOGICAL: Cranial nerves grossly intact; no facial asymmetry, moving all 4 limbs Rest of exam per pulmonary and nursing INVESTIGATIONS, reviewed in the clinical context: November 21: Potassium 4.8 creatinine 2.7 2-D echocardiogram: EF 50-55% November 20 Potassium 5.1 creatinine 2.85 d-dimer 0.47 CRP 70 WBC 3.2 hemoglobin 9.7 platelets 164 lymphocytes 0.5 sodium 131 potassium 4.8 bun 61 creatinine 3.37 Troponin I 0.073, 0.073, 0.068 albumin 3.2 Urine protein 2+ moderate blood Coronavirus [PCR] detected EKG tracing personally reviewed by me-normal sinus rhythm Chest x-ray film personally reviewed by me-bilateral infiltrates Renal ultrasound-normal Assessment and plan: -Acute bilateral COVID 19 pneumonia. Symptoms started about a week ago.-Slow to [place] on IV dexamethasone, subcu Lovenox, vitamin C vitamin D Pepcid and zinc. November 20 started on Remdesivir -Acute hypoxic respiratory failure, secondary to COVID 19 pneumonia: slow to respond Currently on 4 L of nasal cannula -Acute myocarditis secondary to COVID 19 Telemetry. watch for arrhythmias. Consult cardiology -Acute kidney injury likely ATN from sepsis Improving his IV fluids -AICD On telemetry -Coronary artery disease with prior history of carotid bypass Continue with Coreg, Lipitor, aspirin -Hypothyroid Continue with Synthroid -Diabetes mellitus type 2, on oral hypoglycemic Follow Accu-Cheks with sliding scale insulin -Chronic gout Continue with allopurinol -Anemia of chronic kidney disease Follow H&H and continue with erythropoietin -Diabetic retinopathy Follow clinically -Diabetic peripheral neuropathy Follow clinically -Hyponatremia from a relative decrease in solute from decreased appetite- improving Saline IV -Metabolic acidosis due to chronic kidney disease Supplement bicarb Discussed with the patient. Continue current medication treatment plan. Follow with pulmonary.
[2020-11-22] MEDS: SODIUM CHLORIDE 0.9% 1,000 ML IV SCH ×2 (04:26→20:33)
[2020-11-22 05:27] LABS: Glucose,Whole Blood 258 mg/dL (75-99)
[2020-11-22] MEDS: INSULIN ASPART (NovoLOG) 100 UNIT/ML VIAL SQ SCH ×4 (06:05→20:33)
[2020-11-22] MEDS: REPAGLINIDE 1 MG TAB PO SCH ×2 (06:05→17:52)
[2020-11-22] MEDS: LEVOTHYROXINE 100 MCG TAB PO SCH (06:05)
[2020-11-22 06:48] LABS: Glucose,Whole Blood 247 mg/dL (75-99)
[2020-11-22 07:13] LABS: C Reactive Protein 35.6 mg/L (<10.0); Calcium 7.1 mg/dL (8.4-10.2); Magnesium 1.9 mg/dL (1.6-2.3); Potassium 4.8 mmol/L (3.5-5.1)
[2020-11-22] MEDS: DEXAMETHASONE SOD PHOSPHATE 10 MG/ML 1 ML VIAL IV SCH (07:57)
[2020-11-22] MEDS: ASCORBIC ACID 500 MG TAB PO SCH ×2 (07:57→20:32)
[2020-11-22] MEDS: FAMOTIDINE 20 MG TAB PO SCH (07:57)
[2020-11-22] MEDS: SODIUM BICARBONATE TAB 650 MG TAB PO SCH ×3 (07:58→20:32)
[2020-11-22] MEDS: ZINC SULFATE 220 MG CAP PO SCH (07:58)
[2020-11-22] MEDS: ASPIRIN 81 MG PO SCH (07:58)
[2020-11-22] MEDS: CHOLECALCIFEROL 25 MCG (1000 IU) TABLET PO SCH (07:58)
[2020-11-22] MEDS: ENOXAPARIN 30 MG/0.3 ML SYRINGE SQ SCH (07:58)
--- NOTE | 2020-11-22 11:04 | P.PN ---
Subjective Patient is seen in follow for acute kidney injury on chronic kidney disease. Renal function stable. Good urine output. Currently on 5 L nasal cannula. Denies chest pain or shortness of breath. Oral intake fair. No active complaints. Vital signs are stable. General: The patient appeared well nourished and normally developed. HEENT: Head exam is unremarkable. Neck is without jugular venous distension. LUNGS: Breath sounds decreased. HEART: Rate and Rhythm are regular. ABDOMEN: Soft, nondistended. EXTREMITITES: No edema. Objective - Vital Signs Vital signs: Vital Signs Temp 97.7 F 11/22/20 08:00 Pulse 66 11/22/20 08:00 Resp 16 11/22/20 08:00 BP 143/67 11/22/20 08:00 Pulse Ox 90 L 11/22/20 08:00 Intake & Output 11/21/20 11/22/20 11/22/20 18:59 06:59 18:59 Intake Total 720 480 Output Total 1050 1000 Balance -330 -520 Weight 85.2 kg Intake: Intake, IV Titration 480 Amount Sodium Chloride 0.9% 1, 480 000 ml @ 60 mls/hr IV . [id number] [facility] Rx#:[id number] Oral 720 Output: Urine 1050 1000 Other: Voiding Method Urinal Urinal Urinal Incontinent Incontinent Incontinent - Labs CBC & Chem 7: 11/19/20 00:24 11/22/20 06:31 Labs: Abnormal Lab Results - Last 24 Hours (Table) 11/21/20 11/21/20 11/21/20 Range/Units 11:30 16:35 20:01 D-Dimer (<0.60) mg/L FEU Chloride (98-107) mmol/L Carbon Dioxide (22-30) mmol/L BUN (9-20) mg/dL Creatinine (0.66-1.25) mg/dL Glucose (74-99) mg/dL POC Glucose (mg/dL) 273 H 292 H 291 H (75-99) mg/dL Calcium (8.4-10.2) mg/dL C-Reactive Protein (<10.0) mg/L 11/22/20 11/22/20 11/22/20 Range/Units 05:25 06:31 06:31 D-Dimer 0.69 H (<0.60) mg/L FEU Chloride 112 H (98-107) mmol/L Carbon Dioxide 19 L (22-30) mmol/L BUN 65 H (9-20) mg/dL Creatinine 2.69 H (0.66-1.25) mg/dL Glucose 235 H (74-99) mg/dL POC Glucose (mg/dL) 258 H (75-99) mg/dL Calcium 7.1 L (8.4-10.2) mg/dL C-Reactive Protein 35.6 H (<10.0) mg/L 11/22/20 Range/Units 06:47 D-Dimer (<0.60) mg/L FEU Chloride (98-107) mmol/L Carbon Dioxide (22-30) mmol/L BUN (9-20) mg/dL Creatinine (0.66-1.25) mg/dL Glucose (74-99) mg/dL POC Glucose (mg/dL) 247 H (75-99) mg/dL Calcium (8.4-10.2) mg/dL C-Reactive Protein (<10.0) mg/L Assessment and Plan Plan: Assessment: 1. Acute kidney injury mostly prerenal secondary to Covid 19 infection. Creatinine 3.37 on admission and is stable at 2.69 today. No evidence of urinary retention. No hydronephrosis noted on kidney ultrasound. 2. 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 Crea tinine 2.0 in August 2020. 3. Covid 19 infection. Maintained on steroids, remdesivir, zinc. 4. Diabetes mellitus. 5. Metabolic acidosis secondary to acute kidney injury and IV fluids. Maintained on oral bicarbonate. 6. Hyponatremia secondary to acute kidney injury. Possible SIADH from respi ratory infection. Better. Urine sodium 30 and urine osmolality 372. 7. Anemia of chronic kidney disease. Maintained on Aranesp. Plan: Maintain normal saline at 60 mL an hour. Encourage oral intake. Repeat electrolytes in the morning. Wean FiO2.
[2020-11-22 11:44] LABS: Glucose,Whole Blood 252 mg/dL (75-99)
[2020-11-22] MEDS: FERROUS SULFATE 325 MG TAB PO SCH ×2 (11:55→17:05)
[2020-11-22] MEDS: carvediloL 6.25 MG TAB PO SCH ×2 (11:55→17:05)
[2020-11-22] MEDS: REMDESIVIR 100 MG in SODIUM CHLORIDE 0.9% 250 ML IVPB SCH (14:27)
[2020-11-22 16:40] LABS: Glucose,Whole Blood 303 mg/dL (75-99)
[2020-11-22] MEDS: allopurinoL 100 MG TAB PO SCH (17:05)
--- NOTE | 2020-11-22 17:29 | P.PN ---
Subjective Progress Note Date: 11/22/20 Principal diagnosis: Acute COVID-19 pneumonia Acute COVID-19 pneumonia 75-year-old male patient, started having symptoms approximately a week ago when he started feeling a bit tired and fatigued. He subsequently developed fever and diminished appetite and some diarrhea. The patient tested positive for COVID 19 infection 4 days ago and this was again confirmed on 11/19/2020. The patient came into the emergency with weakness and shortness of breath. The patient is currently on 2 L of oxygen by nasal cannula. He is known to have CAD, previous bypass, aortic, chronic disease, diabetes mellitus and diabetic retinopathy and neuropathy and hypothyroidism and gout. Lactate was 0.7, there d-dimer was 0.6, white cell count was at 3.2 with a lymphopenia, creatinine was at 3.37 with a mean of 61. He is also on multivitamins. Chest x-ray showing diffuse bilateral pulmonary infiltrates. On today's evaluation of [phone] the patient is currently on oxygen at 4 L per minute. The patient is quite comfortable. Pulse ox is around 95% and FiO2 can be obviously weaned off. The patient is being seen for a follow-up. The patient is currently being treated with Decadron 6 mg IV every 24 hours. The patient is also on Lovenox 40 mg subcu daily and the patient is also on Remdesivir day #2. No follow-up chest x-rays available from today. The rest of the labs are showing chronic kidney disease with a creatinine of 2.7. The patient has chronic metabolic acidosis which is of a non-anion gap type. On 11/22/2020 patient seen in follow-up. Is comfortable, still desat easily, feels tired, but no acute distress, today's labs have been reviewed, d-dimer 0.69, CRP is 35.6, no LDH. Has not had a chest x-ray, he is currently on 7 L, his pulse ox is 89%, no fever, remains on Remdesivir, today is day 3 of treatment. Objective - Vital Signs Vital signs: Vital Signs Temp 97.5 F L 11/22/20 13:57 Pulse 60 11/22/20 13:57 Resp 17 11/22/20 13:57 BP 124/63 11/22/20 13:57 Pulse Ox 95 11/22/20 15:48 Intake & Output 11/21/20 11/22/20 11/22/20 18:59 06:59 18:59 Intake Total 720 480 Output Total 1050 1000 Balance -330 -520 Weight 85.2 kg Intake: Intake, IV Titration 480 Amount Sodium Chloride 0.9% 1, 480 000 ml @ 60 mls/hr IV . [id number] COUNT INCLUDES THE [facility] Rx#:[id number] Oral 720 Output: Urine 1050 1000 Other: Voiding Method Urinal Urinal Urinal Incontinent Incontinent Incontinent - Exam GENERAL EXAM: Alert, pleasant 75-year-old white male, currently on 7 L, with pulse ox of 89% comfortable in no apparent distress. HEAD: Normocephalic/atraumatic. EYES: Normal reaction of pupils, equal size. Conjunctiva pink, sclera white. NOSE: Clear with pink turbinates. THROAT: No erythema or exudates. NECK: No masses, no JVD, no thyroid enlargement, no adenopathy. CHEST: No chest wall deformity. Symmetrical expansion. LUNGS: Equal air entry with bilateral crackles CVS: Regular rate and rhythm, normal S1 and S2, no gallops, no murmurs, no rubs ABDOMEN: Soft, nontender. No hepatosplenomegaly, normal bowel sounds, no guarding or rigidity. EXTREMITIES: No clubbing, no edema, no cyanosis, 2+ pulses and upper and lower extremities. MUSCULOSKELETAL: Muscle strength and tone normal. SPINE: No scoliosis or deformity SKIN: No rashes CENTRAL NERVOUS SYSTEM: Alert and oriented -3. No focal deficits, tone is normal in all 4 extremities. PSYCHIATRIC: Alert and oriented -3. Appropriate affect. Intact judgment and insight. - Labs CBC & Chem 7: 11/19/20 00:24 11/22/20 06:31 Labs: Abnormal Lab Results - Last 24 Hours (Table) 11/21/20 11/22/20 11/22/20 Range/Units 20:01 05:25 06:31 D-Dimer (<0.60) mg/L FEU Chloride 112 H (98-107) mmol/L Carbon Dioxide 19 L (22-30) mmol/L BUN 65 H (9-20) mg/dL Creatinine 2.69 H (0.66-1.25) mg/dL Glucose 235 H (74-99) mg/dL POC Glucose (mg/dL) 291 H 258 H (75-99) mg/dL Calcium 7.1 L (8.4-10.2) mg/dL C-Reactive Protein 35.6 H (<10.0) mg/L 11/22/20 11/22/20 11/22/20 Range/Units 06:31 06:47 11:42 D-Dimer 0.69 H (<0.60) mg/L FEU Chloride (98-107) mmol/L Carbon Dioxide (22-30) mmol/L BUN (9-20) mg/dL Creatinine (0.66-1.25) mg/dL Glucose (74-99) mg/dL POC Glucose (mg/dL) 247 H 252 H (75-99) mg/dL Calcium (8.4-10.2) mg/dL C-Reactive Protein (<10.0) mg/L 11/22/20 Range/Units 16:39 D-Dimer (<0.60) mg/L FEU Chloride (98-107) mmol/L Carbon Dioxide (22-30) mmol/L BUN (9-20) mg/dL Creatinine (0.66-1.25) mg/dL Glucose (74-99) mg/dL POC Glucose (mg/dL) 303 H (75-99) mg/dL Calcium (8.4-10.2) mg/dL C-Reactive Protein (<10.0) mg/L Assessment and Plan Plan: 1 acute COVID 19 related pneumonia with secondary shortness of breath and hypoxic respiratory failure the patient's symptoms of generalized weakness and dehydration, currently on 4 L of oxygen by nasal cannula, patient was started on Remdesivir on 11/20/2020 2 acute hypoxic respiratory failure currently on 2 L of oxygen by nasal cannula 3 coronary artery disease with previous positive bypass surgery 4 mild troponin leak, could be related to Covid 19 infection 5 history of AICD placement 6 hypothyroidism 7 diabetes mellitus 8 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 Continue current dose anticoagulation and steroids I performed a history & physical examination of the patient and discussed their management with my nurse practitioner, Iza Mccarthy. I reviewed the nurse practitioner's note and agree with the documented findings and plan of care. Lung sounds are positive for bibasilar crackles. The findings and the impression was discussed with the patient. I attest to the documentation by the nurse practitioner. Time with Patient: Less than 30
--- NOTE | 2020-11-22 18:35 | PN ---
PROGRESS NOTE DATE OF SERVICE: 11/22/2020 REASON FOR FOLLOWUP: Acute COVID-19 pneumonia. INTERVAL HISTORY: The patient is afebrile. The patient is feeling better today. He is breathing comfortably. Denies having any chest pain. Minimal cough; no sputum production. No abdominal pain or diarrhea. PHYSICAL EXAMINATION: Blood pressure is 124/63 with a pulse of 60, temperature 97.5. He is 95% on 8 L high- flow oxygen. General description is an elderly male lying in bed in no distress. RESPIRATORY SYSTEM: Unlabored breathing with decreased intensity of breath sounds. No wheeze. HEART: S1, S2. Regular rate and rhythm. ABDOMEN: Soft. No tenderness. LABS: BUN of 65, creatinine 2.69. DIAGNOSTIC IMPRESSION AND PLAN: Patient with acute COVID-19 pneumonia. Patient is currently clinically responding to current treatment protocol with remdesivir. Patient is on day 3 out of 5. To continue along with Lovenox, dexamethasone, zinc, ascorbic acid and respiratory support. Monitor clinical course closely. MMODL / IJN: [id number] /
[2020-11-22 20:23] LABS: Glucose,Whole Blood 318 mg/dL (75-99)
[2020-11-22] MEDS: ATORVASTATIN 40 MG TAB PO SCH (20:33)
[2020-11-22] MEDS: ALPRAZolam 0.25 MG TAB PO PRN (20:34)
--- NOTE | 2020-11-22 21:17 | P.PN ---
Progress Note - Text Progress Note Date: 11/22/20 Chief Complaint: Tired History of presenting complaint: Pleasant 75-year-old patient of Dr. Horta. Chronic stable medical conditions include diabetes, hypothyroid, gout, peripheral neuropathy, diabetic retinopathy, chronic kidney disease, coronary artery disease with a history of bypass and AICD. Patient's is by the bedside who provides most of the history. Patient about 7 days ago on Friday every couple of days before that has started feeling a little bit tired. Motor worse on Friday. Also developed a fever. Decreased appetite diet. Had some diarrhea. Body aches. No loss of smell or taste. Patient did have COVID rapid tested on that was negative. Now becomes short of breath with minimal exertion tired rundown. Patient is tested positive for COVID 19. Initial pulse ox on room air was 98% and then did go down to 94% on 2 L. Admitted with acute bilateral COVID 19 pneumonitis, acute hypoxic respiratory failure, acute myocarditis. Placed on dexamethasone Lovenox. IV Remdesivir Today: Breathing slowly improving. Oral intake close to 100%. Oxygen requirement increased to 5 L. Review of systems: Was done for constitutional, cardiovascular, GI, pulmonary. relevant finding as above Active Medications Allopurinol (Allopurinol 100 Mg Tab) 100 mg PO W/SUPPER [facility] Last Admin: 11/22/20 17:05 Dose: 100 mg Documented by: Alprazolam (Alprazolam 0.25 Mg Tab) 0.25 mg PO DAILY PRN PRN Reason: Anxiety Last Admin: 11/22/20 20:34 Dose: 0.25 mg Documented by: Ascorbic Acid (Ascorbic Acid 500 Mg Tab) 500 mg PO BID [facility] Last Admin: 11/22/20 20:32 Dose: 500 mg Documented by: Aspirin (Aspirin 81 Mg) 81 mg PO DAILY [facility] Last Admin: 11/22/20 07:58 Dose: 81 mg Documented by: Atorvastatin Calcium (Atorvastatin 40 Mg Tab) 40 mg PO HS [facility] Last Admin: 11/22/20 20:33 Dose: 40 mg Documented by: Carvedilol (Carvedilol 6.25 Mg Tab) 18.75 mg PO BID@1200,1800 [facility] Last Admin: 11/22/20 17:05 Dose: 18.75 mg Documented by: Cholecalciferol (Cholecalciferol 25 Mcg (1000 Iu) Tablet) 100 mcg PO DAILY [facility] Last Admin: 11/22/20 07:58 Dose: 100 mcg Documented by: Darbepoetin Rizwan (Darbepoetin Rizwan 40 Mcg/0.4 Ml Syringe) 40 mcg SQ Q7D [facility] Last Admin: 11/21/20 16:04 Dose: 40 mcg Documented by: Dexamethasone Sodium Phosphate (Dexamethasone Sod Phosphate 10 Mg/Ml 1 Ml Vial) 6 mg IV DAILY [facility] Last Admin: 11/22/20 07:57 Dose: 6 mg Documented by: Enoxaparin Sodium (Enoxaparin 30 Mg/0.3 Ml Syringe) 30 mg SQ DAILY [facility] Last Admin: 11/22/20 07:58 Dose: 30 mg Documented by: Famotidine (Famotidine 20 Mg Tab) 20 mg PO DAILY [facility] Last Admin: 11/22/20 07:57 Dose: 20 mg Documented by: Ferrous Sulfate (Ferrous Sulfate 325 Mg Tab) 325 mg PO BID@1200,1800 [facility] Last Admin: 11/22/20 17:05 Dose: 325 mg Documented by: Sodium Chloride (Saline 0.9%) 1,000 mls @ 60 mls/hr IV .[id number] [facility] Last Admin: 11/22/20 20:33 Dose: 60 mls/hr Documented by: Remdesivir 100 mg/ Sodium (Chloride) 250 mls @ 250 mls/hr IVPB DAILY@1100 [facility] Stop: 11/24/20 11:59 Last Admin: 11/22/20 14:27 Dose: 250 mls/hr Documented by: Insulin Aspart (Insulin Aspart (Novolog) 100 Unit/Ml Vial) 0 unit SQ ACHS [facility]; Protocol Last Admin: 11/22/20 20:33 Dose: 5 unit Documented by: Levothyroxine Sodium (Levothyroxine 100 Mcg Tab) 100 mcg PO 0630 [facility] Last Admin: 11/22/20 06:05 Dose: 100 mcg Documented by: Naloxone HCl (Naloxone 0.4 Mg/Ml 1 Ml Vial) 0.2 mg IV Q2M PRN PRN Reason: Opioid Reversal Repaglinide (Repaglinide 1 Mg Tab) 0.25 mg PO AC-BID [facility] Last Admin: 11/22/20 17:52 Dose: 0.25 mg Documented by: Sodium Bicarbonate (Sodium Bicarbonate Tab 650 Mg Tab) 650 mg PO TID [facility] Last Admin: 11/22/20 20:32 Dose: 650 mg Documented by: Zinc Sulfate (Zinc Sulfate 220 Mg Cap) 220 mg PO DAILY [facility] Last Admin: 11/22/20 07:58 Dose: 220 mg Documented by: Past medical history to include: Diabetes, hypothyroid, gout, diabetic peripheral neuropathy, diabetic retinopathy, chronic kidney disease stage IV, coronary artery disease with bypass, AICD Social history: No history of smoking or alcohol. . 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 PSYCH: [Alert and oriented x3; mood and affect normal NEUROLOGICAL: Cranial nerves grossly intact; no facial asymmetry, moving all 4 limbs Rest of exam per pulmonary and nursing INVESTIGATIONS, reviewed in the clinical context: November 22: Potassium 4.8 bun 65 creatinine 2.69 d-dimer 0.69 CRP 35.6 November 21: Potassium 4.8 creatinine 2.7 2-D echocardiogram: EF 50-55% November 20 Potassium 5.1 creatinine 2.85 d-dimer 0.47 CRP 70 WBC 3.2 hemoglobin 9.7 platelets 164 lymphocytes 0.5 sodium 131 potassium 4.8 bun 61 creatinine 3.37 Troponin I 0.073, 0.073, 0.068 albumin 3.2 Urine protein 2+ moderate blood Coronavirus [PCR] detected EKG tracing personally reviewed by me-normal sinus rhythm Chest x-ray film personally reviewed by me-bilateral infiltrates Renal ultrasound-normal Assessment and plan: -Acute bilateral COVID 19 pneumonia. Symptoms started about a week ago.-Not improving on IV dexamethasone, subcu Lovenox, vitamin C vitamin D Pepcid and zinc. November 20 started on Remdesivir -Acute hypoxic respiratory failure, secondary to COVID 19 pneumonia: Worsening Currently on 5 L of nasal cannula -Acute myocarditis secondary to COVID 19 Telemetry. watch for arrhythmias. Consult cardiology -Acute kidney injury likely ATN from sepsis Improving his IV fluids -Chronic kidney disease stage IV secondary to diabetic kidney disease. Kira matamoros 2.17 August 2020 -AICD On telemetry -Coronary artery disease with prior history of carotid bypass Continue with Coreg, Lipitor, aspirin -Hypothyroid Continue with Synthroid -Diabetes mellitus type 2, on oral hypoglycemic Follow Accu-Cheks with sliding scale insulin -Chronic gout Continue with allopurinol -Anemia of chronic kidney disease Follow H&H and continue with erythropoietin -Diabetic retinopathy Follow clinically -Diabetic peripheral neuropathy Follow clinically -Hyponatremia from a relative decrease in solute from decreased appetite- improving Saline IV -Metabolic acidosis due to chronic kidney disease Supplement bicarb Discussed with the patient. Prognosis guarded. Oxygen requirement is going up. Follow with pulmonary
[2020-11-23] MEDS: LEVOTHYROXINE 100 MCG TAB PO SCH (05:29)
[2020-11-23 06:56] LABS: Glucose,Whole Blood 294 mg/dL (75-99)
[2020-11-23] MEDS: INSULIN ASPART (NovoLOG) 100 UNIT/ML VIAL SQ SCH ×4 (07:57→21:13)
[2020-11-23] MEDS: ENOXAPARIN 30 MG/0.3 ML SYRINGE SQ SCH (07:57)
[2020-11-23] MEDS: DEXAMETHASONE SOD PHOSPHATE 10 MG/ML 1 ML VIAL IV SCH (07:57)
[2020-11-23] MEDS: SODIUM BICARBONATE TAB 650 MG TAB PO SCH ×3 (07:57→19:59)
[2020-11-23] MEDS: CHOLECALCIFEROL 25 MCG (1000 IU) TABLET PO SCH (07:57)
[2020-11-23] MEDS: REPAGLINIDE 1 MG TAB PO SCH ×2 (07:58→17:19)
[2020-11-23] MEDS: ZINC SULFATE 220 MG CAP PO SCH (07:58)
[2020-11-23] MEDS: ASCORBIC ACID 500 MG TAB PO SCH ×2 (07:58→19:59)
[2020-11-23] MEDS: ASPIRIN 81 MG PO SCH (07:58)
[2020-11-23] MEDS: FAMOTIDINE 20 MG TAB PO SCH (07:58)
--- NOTE | 2020-11-23 08:29 | XR ---
EXAMINATION TYPE: XR chest 1V DATE OF EXAM: 11/23/2020 CLINICAL HISTORY: Difficulty breathing and weakness progress study. TECHNIQUE: Single AP portable upright view of the chest is obtained. COMPARISON: Chest x-ray from 4 days earlier FINDINGS: Post-CABG changes with mediastinal clips and sternal wires redemonstrated. Cardiac silhouet te size is stable and mildly enlarged with dual lead pacemaker/defibrillator. Chronic parenchymal valdo nges with bilateral lower lung opacities, interval increased prominence on the right noted. Osseous s tructures remain intact. IMPRESSION: Bilateral lower lung increased opacities, interval worsening in the right lower lung, fin dings consistent with covid-19 infection progression.
[2020-11-23 09:16] LABS: African American GFR (CKD) 31 (>60 ml/min/1.73 sqM); Anion Gap 8 mmol/L; Blood Urea Nitrogen 64 mg/dL (9-20); C Reactive Protein 27.2 mg/L (<10.0); Calcium 7.4 mg/dL (8.4-10.2); Carbon Dioxide 21 mmol/L (22-30); Chloride 112 mmol/L (98-107); Glucose 257 mg/dL (74-99); Magnesium 1.8 mg/dL (1.6-2.3); Non-African American GFR(CKD) 27 (>60 ml/min/1.73 sqM); Potassium 4.7 mmol/L (3.5-5.1); Sodium 141 mmol/L (137-145)
--- NOTE | 2020-11-23 10:54 | P.PN ---
Subjective Patient is seen in follow for acute kidney injury on chronic kidney disease. Renal function better. Good urine output. Currently on 7 L nasal cannula. Denies chest pain or shortness of breath. Oral intake fair. No active complaints. Vital signs are stable. General: The patient appeared well nourished and normally developed. HEENT: Head exam is unremarkable. Neck is without jugular venous distension. LUNGS: Breath sounds decreased. HEART: Rate and Rhythm are regular. ABDOMEN: Soft, nondistended. EXTREMITITES: No edema. Objective - Vital Signs Vital signs: Vital Signs Temp 98.0 F 11/23/20 10:00 Pulse 55 L 11/23/20 10:00 Resp 18 11/23/20 10:00 BP 145/64 11/23/20 10:00 Pulse Ox 98 11/23/20 10:00 Intake & Output 11/22/20 11/23/20 11/23/20 18:59 06:59 18:59 Output Total 700 Balance -700 Output: Urine 700 Other: Voiding Method Urinal Urinal Incontinent Incontinent - Labs CBC & Chem 7: 11/19/20 00:24 11/23/20 08:10 Labs: Abnormal Lab Results - Last 24 Hours (Table) 11/22/20 11/22/20 11/22/20 Range/Units 11:42 16:39 20:21 D-Dimer (<0.60) mg/L FEU Chloride (98-107) mmol/L Carbon Dioxide (22-30) mmol/L BUN (9-20) mg/dL Creatinine (0.66-1.25) mg/dL Glucose (74-99) mg/dL POC Glucose (mg/dL) 252 H 303 H 318 H (75-99) mg/dL Calcium (8.4-10.2) mg/dL Lactate Dehydrogenase (313-618) U/L C-Reactive Protein (<10.0) mg/L 11/22/20 11/23/20 11/23/20 Range/Units 22:03 06:48 08:10 D-Dimer (<0.60) mg/L FEU Chloride 112 H (98-107) mmol/L Carbon Dioxide 21 L (22-30) mmol/L BUN 64 H (9-20) mg/dL Creatinine 2.29 H (0.66-1.25) mg/dL Glucose 257 H (74-99) mg/dL POC Glucose (mg/dL) 294 H (75-99) mg/dL Calcium 7.4 L (8.4-10.2) mg/dL Lactate Dehydrogenase 1535 H (313-618) U/L C-Reactive Protein 27.2 H (<10.0) mg/L 11/23/20 Range/Units 08:10 D-Dimer 1.98 H (<0.60) mg/L FEU Chloride (98-107) mmol/L Carbon Dioxide (22-30) mmol/L BUN (9-20) mg/dL Creatinine (0.66-1.25) mg/dL Glucose (74-99) mg/dL POC Glucose (mg/dL) (75-99) mg/dL Calcium (8.4-10.2) mg/dL Lactate Dehydrogenase (313-618) U/L C-Reactive Protein (<10.0) mg/L Assessment and Plan Plan: Assessment: 1. Acute kidney injury mostly prerenal secondary to Covid 19 infection. Creatinine 3.37 on admission and is stable at 2.29 today. No evidence of urinary retention. No hydronephrosis noted on kidney ultrasound. 2. 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 Creatinine 2.0 in August 2020. 3. Covid 19 infection. Maintained on steroids, remdesivir, zinc. Currently on 7 L nasal cannula. 4. Diabetes mellitus. 5. Metabolic acidosis secondary to acute kidney injury and IV fluids. Maintained on oral bicarbonate. 6. Hyponatremia secondary to acute kidney injury. Possible SIADH from respiratory infection. Better. Urine sodium 30 and urine osmolality 372. 7. Anemia of chronic kidney disease. Maintained on Aranesp. Plan: Maintain normal saline at 60 mL an hour. Encourage oral intake. Repeat electrolytes in the morning. Wean FiO2. Continue to monitor.
[2020-11-23 11:30] LABS: Glucose,Whole Blood 224 mg/dL (75-99)
[2020-11-23] MEDS: REMDESIVIR 100 MG in SODIUM CHLORIDE 0.9% 250 ML IVPB SCH (11:47)
[2020-11-23] MEDS: carvediloL 6.25 MG TAB PO SCH ×2 (12:28→17:19)
[2020-11-23] MEDS: FERROUS SULFATE 325 MG TAB PO SCH ×2 (12:28→17:20)
[2020-11-23] MEDS: SODIUM CHLORIDE 0.9% 1,000 ML IV SCH ×2 (14:30→20:00)
--- NOTE | 2020-11-23 15:08 | P.PN ---
Subjective Progress Note Date: 11/23/20 Principal diagnosis: Acute COVID-19 pneumonia Acute COVID-19 pneumonia 75-year-old male patient, started having symptoms approximately a week ago when he started feeling a bit tired and fatigued. He subsequently developed fever and diminished appetite and some diarrhea. The patient tested positive for COVID 19 infection 4 days ago and this was again confirmed on 11/19/2020. The patient came into the emergency with weakness and shortness of breath. The patient is currently on 2 L of oxygen by nasal cannula. He is known to have CAD, previous bypass, aortic, chronic disease, diabetes mellitus and diabetic retinopathy and neuropathy and hypothyroidism and gout. Lactate was 0.7, there d-dimer was 0.6, white cell count was at 3.2 with a lymphopenia, creatinine was at 3.37 with a mean of 61. He is also on multivitamins. Chest x-ray showing diffuse bilateral pulmonary infiltrates. On today's evaluation of [phone] the patient is currently on oxygen at 4 L per minute. The patient is quite comfortable. Pulse ox is around 95% and FiO2 can be obviously weaned off. The patient is being seen for a follow-up. The patient is currently being treated with Decadron 6 mg IV every 24 hours. The patient is also on Lovenox 40 mg subcu daily and the patient is also on Remdesivir day #2. No follow-up chest x-rays available from today. The rest of the labs are showing chronic kidney disease with a creatinine of 2.7. The patient has chronic metabolic acidosis which is of a non-anion gap type. On 11/22/2020 patient seen in follow-up. Is comfortable, still desat easily, feels tired, but no acute distress, today's labs have been reviewed, d-dimer 0.69, CRP is 35.6, no LDH. Has not had a chest x-ray, he is currently on 7 L, his pulse ox is 89%, no fever, remains on Remdesivir, today is day 3 of treatment. On 11/23/2020 patient is pretty stable, he remains on 5 L of oxygen, her pulse ox 89-90%, he is breathing comfortably, no worsening dyspnea, his 0.9, saline at 60 per hour, patient completed Remdesivir treatment, he remains on steroids, and prophylactic Lovenox. No worsening dyspnea, today's labs have been reviewed, d- dimer is 1.90, renal profile is slightly improved from yesterday, patient continues on IV fluids, no nausea vomiting or diarrhea, CRP is trending down, LDH with today is pending. Objective - Vital Signs Vital signs: Vital Signs Temp 98.2 F 11/23/20 14:00 Pulse 62 11/23/20 14:00 Resp 18 11/23/20 14:00 BP 156/73 11/23/20 14:00 Pulse Ox 94 L 11/23/20 14:00 Intake & Output 11/22/20 11/23/20 11/23/20 18:59 06:59 18:59 Output Total 700 Balance -700 Output: Urine 700 Other: Voiding Method Urinal Urinal Incontinent Incontinent - Exam GENERAL EXAM: Alert, pleasant 75-year-old white male, currently on 5 L, with pulse ox of 94% comfortable in no apparent distress. HEAD: Normocephalic/atraumatic. EYES: Normal reaction of pupils, equal size. Conjunctiva pink, sclera white. NOSE: Clear with pink turbinates. THROAT: No erythema or exudates. NECK: No masses, no JVD, no thyroid enlargement, no adenopathy. CHEST: No chest wall deformity. Symmetrical expansion. LUNGS: Equal air entry with bilateral crackles CVS: Regular rate and rhythm, normal S1 and S2, no gallops, no murmurs, no rubs ABDOMEN: Soft, nontender. No hepatosplenomegaly, normal bowel sounds, no guarding or rigidity. EXTREMITIES: No clubbing, no edema, no cyanosis, 2+ pulses and upper and lower extremities. MUSCULOSKELETAL: Muscle strength and tone normal. SPINE: No scoliosis or deformity SKIN: No rashes CENTRAL NERVOUS SYSTEM: Alert and oriented -3. No focal deficits, tone is normal in all 4 extremities. PSYCHIATRIC: Alert and oriented -3. Appropriate affect. Intact judgment and insight. - Labs CBC & Chem 7: 11/19/20 00:24 11/23/20 08:10 Labs: Abnormal Lab Results - Last 24 Hours (Table) 11/22/20 11/22/20 11/22/20 Range/Units 16:39 20:21 22:03 D-Dimer (<0.60) mg/L FEU Chloride (98-107) mmol/L Carbon Dioxide (22-30) mmol/L BUN (9-20) mg/dL Creatinine (0.66-1.25) mg/dL Glucose (74-99) mg/dL POC Glucose (mg/dL) 303 H 318 H (75-99) mg/dL Calcium (8.4-10.2) mg/dL Lactate Dehydrogenase 1535 H (313-618) U/L C-Reactive Protein (<10.0) mg/L 11/23/20 11/23/20 11/23/20 Range/Units 06:48 08:10 08:10 D-Dimer 1.98 H (<0.60) mg/L FEU Chloride 112 H (98-107) mmol/L Carbon Dioxide 21 L (22-30) mmol/L BUN 64 H (9-20) mg/dL Creatinine 2.29 H (0.66-1.25) mg/dL Glucose 257 H (74-99) mg/dL POC Glucose (mg/dL) 294 H (75-99) mg/dL Calcium 7.4 L (8.4-10.2) mg/dL Lactate Dehydrogenase (313-618) U/L C-Reactive Protein 27.2 H (<10.0) mg/L 11/23/20 Range/Units 11:26 D-Dimer (<0.60) mg/L FEU Chloride (98-107) mmol/L Carbon Dioxide (22-30) mmol/L BUN (9-20) mg/dL Creatinine (0.66-1.25) mg/dL Glucose (74-99) mg/dL POC Glucose (mg/dL) 224 H (75-99) mg/dL Calcium (8.4-10.2) mg/dL Lactate Dehydrogenase (313-618) U/L C-Reactive Protein (<10.0) mg/L Assessment and Plan Plan: 1 acute COVID 19 related pneumonia with secondary shortness of breath and hypoxic respiratory failure the patient's symptoms of generalized weakness and dehydration, currently on 4 L of oxygen by nasal cannula, patient was started on Remdesivir on 11/20/2020 2 acute hypoxic respiratory failure currently on 2 L of oxygen by nasal cannula 3 coronary artery disease with previous positive bypass surgery 4 mild troponin leak, could be related to Covid 19 infection 5 history of AICD placement 6 hypothyroidism 7 diabetes mellitus 8 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 We'll continue monitoring his clinical course. I performed a history & physical examination of the patient and discussed their management with my nurse practitioner, Iza Mccarthy. I reviewed the nurse practitioner's note and agree with the documented findings and plan of care. Lung sounds are positive for bibasilar crackles. The findings and the impression was discussed with the patient. I attest to the documentation by the nurse practitioner. Time with Patient: Less than 30
--- NOTE | 2020-11-23 15:38 | PN ---
PROGRESS NOTE DATE OF SERVICE: 11/23/2020 REASON FOR FOLLOWUP: COVID-19 pneumonia. INTERVAL HISTORY: The patient is currently afebrile. The patient is breathing more comfortably, down to 5 L nasal cannula. Denies having any chest pain. Cough but no worsening. No abdominal pain. Did have some diarrhea. PHYSICAL EXAMINATION: Blood pressure 156/73, pulse of 52, temperature 98.2. He is 94% on 5 L nasal cannula. General description is an elderly male lying in bed in no distress. RESPIRATORY SYSTEM: Unlabored breathing. Clear to auscultation anteriorly. HEART: S1, S2. Regular rate and rhythm. ABDOMEN: Soft. No tenderness. LABS: BUN of 64, creatinine is 2.29. DIAGNOSTIC IMPRESSION AND PLAN: Patient with acute COVID-19 pneumonia in this patient who seems to have shown overall clinical response. He is currently on dexamethasone, Lovenox, zinc, ascorbic acid, remdesivir, day number 4 out of 5. Continue supportive care. MMODL / IJN: [id number] /
[2020-11-23 16:39] LABS: Glucose,Whole Blood 340 mg/dL (75-99)
[2020-11-23] MEDS: allopurinoL 100 MG TAB PO SCH (17:20)
[2020-11-23] MEDS: ATORVASTATIN 40 MG TAB PO SCH (19:59)
[2020-11-23 20:34] LABS: Glucose,Whole Blood 393 mg/dL (75-99)
--- NOTE | 2020-11-23 22:04 | P.PN ---
Progress Note - Text Progress Note Date: 11/23/20 Chief Complaint: Tired History of presenting complaint: Pleasant 75-year-old patient of Dr. Horta. Chronic stable medical conditions include diabetes, hypothyroid, gout, peripheral neuropathy, diabetic retinopathy, chronic kidney disease, coronary artery disease with a history of bypass and AICD. Patient's is by the bedside who provides most of the history. Patient about 7 days ago on Friday every couple of days before that has started feeling a little bit tired. Motor worse on Friday. Also developed a fever. Decreased appetite diet. Had some diarrhea. Body aches. No loss of smell or taste. Patient did have COVID rapid tested on that was negative. Now becomes short of breath with minimal exertion tired rundown. Patient is tested positive for COVID 19. Initial pulse ox on room air was 98% and then did go down to 94% on 2 L. Admitted with acute bilateral COVID 19 pneumonitis, acute hypoxic respiratory failure, acute myocarditis. Placed on dexamethasone Lovenox. IV Remdesivir Today: Some shortness of breath. Eating well. On 5 L of oxygen Review of systems: Was done for constitutional, cardiovascular, GI, pulmonary. relevant finding as above Active Medications Allopurinol (Allopurinol 100 Mg Tab) 100 mg PO W/SUPPER [facility] Last Admin: 11/23/20 17:20 Dose: 100 mg Documented by: Alprazolam (Alprazolam 0.25 Mg Tab) 0.25 mg PO Q8HR PRN PRN Reason: Anxiety Ascorbic Acid (Ascorbic Acid 500 Mg Tab) 500 mg PO BID [facility] Last Admin: 11/23/20 19:59 Dose: 500 mg Documented by: Aspirin (Aspirin 81 Mg) 81 mg PO DAILY [facility] Last Admin: 11/23/20 07:58 Dose: 81 mg Documented by: Atorvastatin Calcium (Atorvastatin 40 Mg Tab) 40 mg PO HS [facility] Last Admin: 11/23/20 19:59 Dose: 40 mg Documented by: Carvedilol (Carvedilol 6.25 Mg Tab) 18.75 mg PO BID@1200,1800 [facility] Last Admin: 11/23/20 17:19 Dose: 18.75 mg Documented by: Cholecalciferol (Cholecalciferol 25 Mcg (1000 Iu) Tablet) 100 mcg PO DAILY [facility] Last Admin: 11/23/20 07:57 Dose: 100 mcg Documented by: Darbepoetin Rizwan (Darbepoetin Rizwan 40 Mcg/0.4 Ml Syringe) 40 mcg SQ Q7D [facility] Last Admin: 11/21/20 16:04 Dose: 40 mcg Documented by: Dexamethasone Sodium Phosphate (Dexamethasone Sod Phosphate 10 Mg/Ml 1 Ml Vial) 6 mg IV DAILY [facility] Last Admin: 11/23/20 07:57 Dose: 6 mg Documented by: Enoxaparin Sodium (Enoxaparin 30 Mg/0.3 Ml Syringe) 30 mg SQ DAILY [facility] Last Admin: 11/23/20 07:57 Dose: 30 mg Documented by: Famotidine (Famotidine 20 Mg Tab) 20 mg PO DAILY [facility] Last Admin: 11/23/20 07:58 Dose: 20 mg Documented by: Ferrous Sulfate (Ferrous Sulfate 325 Mg Tab) 325 mg PO BID@1200,1800 [facility] Last Admin: 11/23/20 17:20 Dose: 325 mg Documented by: Sodium Chloride (Saline 0.9%) 1,000 mls @ 60 mls/hr IV .[id number] [facility] Last Admin: 11/23/20 20:00 Dose: 60 mls/hr Documented by: Remdesivir 100 mg/ Sodium (Chloride) 250 mls @ 250 mls/hr IVPB DAILY@1100 [facility] Stop: 11/24/20 11:59 Last Admin: 11/23/20 11:47 Dose: 250 mls/hr Documented by: Insulin Aspart (Insulin Aspart (Novolog) 100 Unit/Ml Vial) 0 unit SQ ACHS [facility]; Protocol Last Admin: 11/23/20 21:13 Dose: 7 unit Documented by: Levothyroxine Sodium (Levothyroxine 100 Mcg Tab) 100 mcg PO 0630 [facility] Last Admin: 11/23/20 05:29 Dose: 100 mcg Documented by: Naloxone HCl (Naloxone 0.4 Mg/Ml 1 Ml Vial) 0.2 mg IV Q2M PRN PRN Reason: Opioid Reversal Repaglinide (Repaglinide 1 Mg Tab) 0.25 mg PO AC-BID [facility] Last Admin: 11/23/20 17:19 Dose: 0.25 mg Documented by: Sodium Bicarbonate (Sodium Bicarbonate Tab 650 Mg Tab) 650 mg PO TID [facility] Last Admin: 11/23/20 19:59 Dose: 650 mg Documented by: Zinc Sulfate (Zinc Sulfate 220 Mg Cap) 220 mg PO DAILY [facility] Last Admin: 11/23/20 07:58 Dose: 220 mg Documented by: Past medical history to include: Diabetes, hypothyroid, gout, diabetic peripheral neuropathy, diabetic retinopathy, chronic kidney disease stage IV, coronary artery disease with bypass, AICD Social history: No history of smoking or alcohol. . 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 PSYCH: [Alert and oriented x3; mood and affect normal NEUROLOGICAL: Cranial nerves grossly intact; no facial asymmetry, moving all 4 limbs Rest of exam per pulmonary and nursing INVESTIGATIONS, reviewed in the clinical context: November 23: D-dimer 1.98 potassium 4.7 creatinine 2.09 CRP 27.2 November 22: Potassium 4.8 bun 65 creatinine 2.69 d-dimer 0.69 CRP 35.6 November 21: Potassium 4.8 creatinine 2.7 2-D echocardiogram: EF 50-55% November 20 Potassium 5.1 creatinine 2.85 d-dimer 0.47 CRP 70 WBC 3.2 hemoglobin 9.7 platelets 164 lymphocytes 0.5 sodium 131 potassium 4.8 bun 61 creatinine 3.37 Troponin I 0.073, 0.073, 0.068 albumin 3.2 Urine protein 2+ moderate blood Coronavirus [PCR] detected EKG tracing personally reviewed by me-normal sinus rhythm Chest x-ray film personally reviewed by me-bilateral infiltrates Renal ultrasound-normal Assessment and plan: -Acute bilateral COVID 19 pneumonia. Symptoms started about a week ago.-Not improving on IV dexamethasone, subcu Lovenox, vitamin C vitamin D Pepcid and zinc. November 20 started on Remdesivir -Acute hypoxic respiratory failure, secondary to COVID 19 pneumonia: Not improving Currently on 5 L of nasal cannula -Acute myocarditis secondary to COVID 19 Telemetry. watch for arrhythmias. Consult cardiology -Acute kidney injury likely ATN from sepsis Improving his IV fluids -Chronic kidney disease stage IV secondary to diabetic kidney disease. Creatinine 2.17 August 2020 -AICD On telemetry -Coronary artery disease with prior history of carotid bypass Continue with Coreg, Lipitor, aspirin -Hypothyroid Continue with Synthroid -Diabetes mellitus type 2, on oral hypoglycemic Follow Accu-Cheks with sliding scale insulin -Chronic gout Continue with allopurinol -Anemia of chronic kidney disease Follow H&H and continue with erythropoietin -Diabetic retinopathy Follow clinically -Diabetic peripheral neuropathy Follow clinically -Hyponatremia from a relative decrease in solute from decreased appetite- improving Saline IV -Metabolic acidosis due to chronic kidney disease Supplement bicarb Discussed with the patient. Continue current treatment plan. Follow with pulmonary
[2020-11-23] MEDS: ALPRAZolam 0.25 MG TAB PO PRN (22:27)
[2020-11-24] MEDS: SODIUM CHLORIDE 0.9% 1,000 ML IV SCH (02:20)
[2020-11-24] MEDS: LEVOTHYROXINE 100 MCG TAB PO SCH (05:31)
[2020-11-24 06:49] LABS: Glucose,Whole Blood 224 mg/dL (75-99)
[2020-11-24] MEDS: DEXAMETHASONE SOD PHOSPHATE 10 MG/ML 1 ML VIAL IV SCH (07:28)
[2020-11-24] MEDS: REPAGLINIDE 1 MG TAB PO SCH ×2 (07:28→17:05)
[2020-11-24] MEDS: INSULIN ASPART (NovoLOG) 100 UNIT/ML VIAL SQ SCH ×4 (07:28→21:22)
[2020-11-24] MEDS: FAMOTIDINE 20 MG TAB PO SCH (07:29)
[2020-11-24] MEDS: SODIUM BICARBONATE TAB 650 MG TAB PO SCH ×3 (07:29→21:22)
[2020-11-24] MEDS: ZINC SULFATE 220 MG CAP PO SCH (07:29)
[2020-11-24] MEDS: ASCORBIC ACID 500 MG TAB PO SCH ×2 (07:29→21:21)
[2020-11-24] MEDS: CHOLECALCIFEROL 25 MCG (1000 IU) TABLET PO SCH (07:29)
[2020-11-24] MEDS: ENOXAPARIN 30 MG/0.3 ML SYRINGE SQ SCH (07:29)
[2020-11-24] MEDS: ASPIRIN 81 MG PO SCH (07:29)
[2020-11-24] MEDS: ALPRAZolam 0.25 MG TAB PO PRN (07:29)
--- NOTE | 2020-11-24 11:16 | P.PN ---
Subjective Patient is seen in follow for acute kidney injury on chronic kidney disease. Renal function better. Creatinine 2.29 as of yesterday. Good urine output. Progressively requiring high amounts of oxygen. Currently on 9 L nasal cannula. Denies chest pain or shortness of breath. Oral intake fair. No active complaints. Vital signs are stable. General: The patient appeared well nourished and normally developed. HEENT: Head exam is unremarkable. Neck is without jugular venous distension. LUNGS: Breath sounds decreased. HEART: Rate and Rhythm are regular. ABDOMEN: Soft, nondistended. EXTREMITITES: No edema. Objective - Vital Signs Vital signs: Vital Signs Temp 99.3 F 11/24/20 09:25 Pulse 65 11/24/20 09:25 Resp 18 11/24/20 09:25 BP 155/74 11/24/20 09:25 Pulse Ox 94 L 11/24/20 09:25 Intake & Output 11/23/20 11/24/20 11/24/20 18:59 06:59 18:59 Output Total 1000 1000 Balance -1000 -1000 Output: Urine 1000 1000 Other: Voiding Method Urinal Urinal Diaper Diaper Incontinent Incontinent # Bowel Movements 2 1 - Labs CBC & Chem 7: 11/19/20 00:24 11/23/20 08:10 Labs: Abnormal Lab Results - Last 24 Hours (Table) 11/23/20 11/23/20 11/23/20 Range/Units 11:26 16:37 20:32 POC Glucose (mg/dL) 224 H 340 H 393 H (75-99) mg/dL 11/24/20 Range/Units 06:44 POC Glucose (mg/dL) 224 H (75-99) mg/dL Assessment and Plan Plan: Assessment: 1. Acute kidney injury mostly prerenal secondary to Covid 19 infection. Creatinine 3.37 on admission and is stable at 2.29 yesterday. No evidence of urinary retention. No hydronephrosis noted on kidney ultrasound. 2. 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 Creatinine 2.0 in August 2020. 3. Covid 19 infection. Maintained on steroids, remdesivir, zinc. Currently on 7 L nasal cannula. 4. Diabetes mellitus. 5. Metabolic acidosis secondary to acute kidney injury and IV fluids. Maintain ed on oral bicarbonate. 6. Hyponatremia secondary to acute kidney injury. Possible SIADH from resp iratory infection. Better. Urine sodium 30 and urine osmolality 372. 7. Anemia of chronic kidney disease. Maintained on Aranesp. Plan: Maintain normal saline at 60 mL an hour. Encourage oral intake. Repeat electrolytes in the morning. Wean FiO2. Continue to monitor.
[2020-11-24 11:29] LABS: Glucose,Whole Blood 290 mg/dL (75-99)
[2020-11-24] MEDS: FERROUS SULFATE 325 MG TAB PO SCH ×2 (11:52→17:05)
[2020-11-24] MEDS: carvediloL 6.25 MG TAB PO SCH ×2 (11:52→17:05)
[2020-11-24] MEDS: REMDESIVIR 100 MG in SODIUM CHLORIDE 0.9% 250 ML IVPB SCH (11:52)
--- NOTE | 2020-11-24 15:58 | P.PN ---
Subjective Progress Note Date: 11/24/20 75-year-old male patient, started having symptoms approximately a week ago when he started feeling a bit tired and fatigued. He subsequently developed fever and diminished appetite and some diarrhea. The patient tested positive for COVID 19 infection 4 days ago and this was again confirmed on 11/19/2020. The patient came into the emergency with weakness and shortness of breath. The patient is currently on 2 L of oxygen by nasal cannula. He is known to have CAD, previous bypass, aortic, chronic disease, diabetes mellitus and diabetic retinopathy and neuropathy and hypothyroidism and gout. Lactate was 0.7, there d-dimer was 0.6, white cell count was at 3.2 with a lymphopenia, creatinine was at 3.37 with a mean of 61. He is also on multivitamins. Chest x-ray showing diffuse bilateral pulmonary infiltrates. On today's evaluation of the patient is currently on oxygen at 4 L per minute. The patient is quite comfortable. Pulse ox is around 95% and FiO2 can be obviously weaned off. The patient is being seen for a follow-up. The patient is currently being treated with Decadron 6 mg IV every 24 hours. The patient is also on Lovenox 40 mg subcu daily and the patient is also on Remdesivir day #2. No follow-up chest x-rays available from today. The rest of the labs are showing chronic kidney disease with a creatinine of 2.7. The patient has chronic metabolic acidosis which is of a non-anion gap type. On 11/22/2020 patient seen in follow-up. Is comfortable, still desat easily, feels tired, but no acute distress, today's labs have been reviewed, d-dimer 0.69, CRP is 35.6, no LDH. Has not had a chest x-ray, he is currently on 7 L, his pulse ox is 89%, no fever, remains on Remdesivir, today is day 3 of treatment. On 11/23/2020 patient is pretty stable, he remains on 5 L of oxygen, her pulse ox 89-90%, he is breathing comfortably, no worsening dyspnea, his 0.9, saline at 60 per hour, patient completed Remdesivir treatment, he remains on steroids, and prophylactic Lovenox. No worsening dyspnea, today's labs have been reviewed, d- dimer is 1.90, renal profile is slightly improved from yesterday, patient continues on IV fluids, no nausea vomiting or diarrhea, CRP is trending down, LDH with today is pending. 11/24/2020, the patient remains on oxygen and currently is up to 9 L. He had some interval worsening in her oxygenation is to be brought up to 9 L from a baseline of 5 L. Clinically however the patient is feeling well. Denies having any worsening shortness of breath. No labs are available from today. D-dimer is at 1.98 from yesterday. Sugars are at 290. The patient is on Decadron 6 mg IV every 24 hours. The patient is also on Lovenox 30 mg subcu every 24 hours. Awake and alert. No nausea or vomiting. No diarrhea. Currently on normal state rate of 60 mL an hour. Objective - Vital Signs Vital signs: Vital Signs Temp 98.5 F 11/24/20 13:53 Pulse 73 11/24/20 13:53 Resp 20 11/24/20 13:53 BP 157/72 11/24/20 13:53 Pulse Ox 93 L 11/24/20 13:53 Intake & Output 11/23/20 11/24/20 11/24/20 18:59 06:59 18:59 Output Total 1000 1000 Balance -1000 -1000 Weight 85.2 kg Output: Urine 1000 1000 Other: Voiding Method Urinal Urinal Diaper Diaper Incontinent Incontinent # Bowel Movements 2 1 - Exam GENERAL EXAM: Alert, pleasant 75-year-old white male, currently on 9 L, with pulse ox of 94% comfortable in no apparent distress. HEAD: Normocephalic/atraumatic. EYES: Normal reaction of pupils, equal size. Conjunctiva pink, sclera white. NOSE: Clear with pink turbinates. THROAT: No erythema or exudates. NECK: No masses, no JVD, no thyroid enlargement, no adenopathy. CHEST: No chest wall deformity. Symmetrical expansion. LUNGS: Equal air entry with bilateral crackles CVS: Regular rate and rhythm, normal S1 and S2, no gallops, no murmurs, no rubs ABDOMEN: Soft, nontender. No hepatosplenomegaly, normal bowel sounds, no guarding or rigidity. EXTREMITIES: No clubbing, no edema, no cyanosis, 2+ pulses and upper and lower extremities. MUSCULOSKELETAL: Muscle strength and tone normal. SPINE: No scoliosis or deformity SKIN: No rashes CENTRAL NERVOUS SYSTEM: Alert and oriented -3. No focal deficits, tone is normal in all 4 extremities. PSYCHIATRIC: Alert and oriented -3. Appropriate affect. Intact judgment and insight. - Labs CBC & Chem 7: 11/19/20 00:24 11/23/20 08:10 Labs: Abnormal Lab Results - Last 24 Hours (Table) 11/23/20 11/23/20 11/24/20 Range/Units 16:37 20:32 06:44 POC Glucose (mg/dL) 340 H 393 H 224 H (75-99) mg/dL 11/24/20 Range/Units 11:20 POC Glucose (mg/dL) 290 H (75-99) mg/dL Assessment and Plan Plan: 1 acute COVID 19 related pneumonia with secondary shortness of breath and hypoxic respiratory failure the patient's symptoms of generalized weakness and dehydration, currently on 9 L of oxygen by nasal cannula, patient was started on Remdesivir on 11/20/2020 2 acute hypoxic respiratory failure currently on 9 L of oxygen by nasal cannula 3 coronary artery disease with previous positive bypass surgery 4 mild troponin leak, could be related to Covid 19 infection 5 history of AICD placement 6 hypothyroidism 7 diabetes mellitus 8 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 Creatinine is stable from yesterday at 2.29 Medicine to the with the patient's blood sugar and control the blood sugar more tightly. We'll continue to follow
[2020-11-24 16:22] LABS: Glucose,Whole Blood 282 mg/dL (75-99)
[2020-11-24] MEDS: allopurinoL 100 MG TAB PO SCH (17:05)
--- NOTE | 2020-11-24 20:44 | PN ---
PROGRESS NOTE DATE OF SERVICE: 11/24/2020 REASON FOR FOLLOWUP: COVID-19 pneumonia. INTERVAL HISTORY: The patient is afebrile. He is breathing slightly comfortably today on 9 L nasal cannula. The patient denies having any chest pain. Cough, but no worsening. No nausea, no vomiting, no abdominal pain or diarrhea. PHYSICAL EXAMINATION: Blood pressure 148/66, pulse of 64, temperature 97.5. He is 89% on 12 L high- flow oxygen. General description is an elderly male lying in bed in no distress. RESPIRATORY SYSTEM: Unlabored breathing with decreased intensity of breath sounds. No wheeze. HEART: S1, S2. Regular rate and rhythm. ABDOMEN: Soft. No tenderness. LABS: No new labs have been obtained today. DIAGNOSTIC IMPRESSION AND PLAN: Patient with acute COVID-19 pneumonia. Patient has completed his remdesivir therapy. Currently on dexamethasone, Lovenox, zinc and ascorbic acid. Continue current supportive treatment and monitor his clinical course closely. MMODL / IJN: [id number] / MTDD
[2020-11-24 20:45] LABS: Glucose,Whole Blood 345 mg/dL (75-99)
[2020-11-24] MEDS: ATORVASTATIN 40 MG TAB PO SCH (21:21)
--- NOTE | 2020-11-24 23:20 | P.PN ---
Progress Note - Text Progress Note Date: 11/24/20 Chief Complaint: Tired History of presenting complaint: Pleasant 75-year-old patient of Dr. Horta. Chronic stable medical conditions include diabetes, hypothyroid, gout, peripheral neuropathy, diabetic retinopathy, chronic kidney disease, coronary artery disease with a history of bypass and AICD. Patient's is by the bedside who provides most of the history. Patient about 7 days ago on Friday every couple of days before that has started feeling a little bit tired. Motor worse on Friday. Also developed a fever. Decreased appetite diet. Had some diarrhea. Body aches. No loss of smell or taste. Patient did have COVID rapid tested on that was negative. Now becomes short of breath with minimal exertion tired rundown. Patient is tested positive for COVID 19. Initial pulse ox on room air was 98% and then did go down to 94% on 2 L. Admitted with acute bilateral COVID 19 pneumonitis, acute hypoxic respiratory failure, acute myocarditis. Placed on dexamethasone Lovenox. IV Remdesivir Today: More Tired. Some shortness of breath. Eating some. On 9 L of oxygen Review of systems: Was done for constitutional, cardiovascular, GI, pulmonary. relevant finding as above Active Medications Allopurinol (Allopurinol 100 Mg Tab) 100 mg PO W/SUPPER [facility] Last Admin: 11/24/20 17:05 Dose: 100 mg Documented by: Alprazolam (Alprazolam 0.25 Mg Tab) 0.25 mg PO Q8HR PRN PRN Reason: Anxiety Last Admin: 11/24/20 07:29 Dose: 0.25 mg Documented by: Ascorbic Acid (Ascorbic Acid 500 Mg Tab) 500 mg PO BID [facility] Last Admin: 11/24/20 21:21 Dose: 500 mg Documented by: Aspirin (Aspirin 81 Mg) 81 mg PO DAILY [facility] Last Admin: 11/24/20 07:29 Dose: 81 mg Documented by: Atorvastatin Calcium (Atorvastatin 40 Mg Tab) 40 mg PO HS [facility] Last Admin: 11/24/20 21:21 Dose: 40 mg Documented by: Carvedilol (Carvedilol 6.25 Mg Tab) 18.75 mg PO BID@1200,1800 [facility] Last Admin: 11/24/20 17:05 Dose: 18.75 mg Documented by: Cholecalciferol (Cholecalciferol 25 Mcg (1000 Iu) Tablet) 100 mcg PO DAILY [facility] Last Admin: 11/24/20 07:29 Dose: 100 mcg Documented by: Darbepoetin Rizwan (Darbepoetin Rizwan 40 Mcg/0.4 Ml Syringe) 40 mcg SQ Q7D [facility] Last Admin: 11/21/20 16:04 Dose: 40 mcg Documented by: Dexamethasone Sodium Phosphate (Dexamethasone Sod Phosphate 10 Mg/Ml 1 Ml Vial) 6 mg IV DAILY [facility] Last Admin: 11/24/20 07:28 Dose: 6 mg Documented by: Enoxaparin Sodium (Enoxaparin 30 Mg/0.3 Ml Syringe) 30 mg SQ DAILY [facility] Last Admin: 11/24/20 07:29 Dose: 30 mg Documented by: Famotidine (Famotidine 20 Mg Tab) 20 mg PO DAILY [facility] Last Admin: 11/24/20 07:29 Dose: 20 mg Documented by: Ferrous Sulfate (Ferrous Sulfate 325 Mg Tab) 325 mg PO BID@1200,1800 [facility] Last Admin: 11/24/20 17:05 Dose: 325 mg Documented by: Sodium Chloride (Saline 0.9%) 1,000 mls @ 60 mls/hr IV .[id number] [facility] Last Admin: 11/24/20 02:20 Dose: 60 mls/hr Documented by: Insulin Aspart (Insulin Aspart (Novolog) 100 Unit/Ml Vial) 0 unit SQ ACHS [facility]; Protocol Last Admin: 11/24/20 21:22 Dose: 6 unit Documented by: Levothyroxine Sodium (Levothyroxine 100 Mcg Tab) 100 mcg PO 0630 [facility] Last Admin: 11/24/20 05:31 Dose: 100 mcg Documented by: Naloxone HCl (Naloxone 0.4 Mg/Ml 1 Ml Vial) 0.2 mg IV Q2M PRN PRN Reason: Opioid Reversal Repaglinide (Repaglinide 1 Mg Tab) 0.25 mg PO AC-BID [facility] Last Admin: 11/24/20 17:05 Dose: 0.25 mg Documented by: Sodium Bicarbonate (Sodium Bicarbonate Tab 650 Mg Tab) 650 mg PO TID [facility] Last Admin: 11/24/20 21:22 Dose: 650 mg Documented by: Zinc Sulfate (Zinc Sulfate 220 Mg Cap) 220 mg PO DAILY [facility] Last Admin: 11/24/20 07:29 Dose: 220 mg Documented by: Past medical history to include: Diabetes, hypothyroid, gout, diabetic peripheral neuropathy, diabetic retinopathy, chronic kidney disease stage IV, coronary artery disease with bypass, AICD Social history: No history of smoking or alcohol. . 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 PSYCH: [Alert and oriented x3; mood and affect normal NEUROLOGICAL: Cranial nerves grossly intact; no facial asymmetry, moving all 4 limbs Rest of exam per pulmonary and nursing INVESTIGATIONS, reviewed in the clinical context: November 24: Accu-Cheks to 24 2 [id number] November 23: D-dimer 1.98 potassium 4.7 creatinine 2.09 CRP 27.2 November 22: Potassium 4.8 bun 65 creatinine 2.69 d-dimer 0.69 CRP 35.6 November 21: Potassium 4.8 creatinine 2.7 2-D echocardiogram: EF 50-55% November 20 Potassium 5.1 creatinine 2.85 d-dimer 0.47 CRP 70 WBC 3.2 hemoglobin 9.7 platelets 164 lymphocytes 0.5 sodium 131 potassium 4.8 bun 61 creatinine 3.37 Troponin I 0.073, 0.073, 0.068 albumin 3.2 Urine protein 2+ moderate blood Coronavirus [PCR] detected EKG tracing personally reviewed by me-normal sinus rhythm Chest x-ray film personally reviewed by me-bilateral infiltrates Renal ultrasound-normal Assessment and plan: -Acute bilateral COVID 19 pneumonia. Symptoms started about a week ago.- Worsening on IV dexamethasone, subcu Lovenox, vitamin C vitamin D Pepcid and zinc. November 20 started on Remdesivir -Acute hypoxic respiratory failure, secondary to COVID 19 pneumonia: Worsening Currently on 9 L of nasal cannula -Acute myocarditis secondary to COVID 19 Telemetry. watch for arrhythmias. -Acute kidney injury likely ATN from sepsis Improving his IV fluids -Chronic kidney disease stage IV secondary to diabetic kidney disease. Creatinine 2.17 August 2020 -AICD On telemetry -Coronary artery disease with prior history of carotid bypass Continue with Coreg, Lipitor, aspirin -Hypothyroid Continue with Synthroid -Diabetes mellitus type 2, on oral hypoglycemic Follow Accu-Cheks with sliding scale insulin -Chronic gout Continue with allopurinol -Anemia of chronic kidney disease Follow H&H and continue with erythropoietin -Diabetic retinopathy Follow clinically -Diabetic peripheral neuropathy Follow clinically -Hyponatremia from a relative decrease in solute from decreased appetite- improving Saline IV -Metabolic acidosis due to chronic kidney disease Supplement bicarb Discussed with the patient. Continue current treatment plan. Follow with pulmonary
[2020-11-25] MEDS: ALPRAZolam 0.25 MG TAB PO PRN ×2 (01:09→20:49)
[2020-11-25] MEDS: INSULIN DETEMIR (LEVEMIR) 100 UNIT/ML SYR SQ SCH ×2 (01:09→20:50)
[2020-11-25 01:14] LABS: Glucose,Whole Blood 266 mg/dL (75-99)
[2020-11-25] MEDS: LEVOTHYROXINE 100 MCG TAB PO SCH (06:04)
[2020-11-25 07:01] LABS: Glucose,Whole Blood 226 mg/dL (75-99)
--- NOTE | 2020-11-25 07:42 | XR ---
EXAMINATION TYPE: XR chest 1V portable DATE OF EXAM: 11/25/2020 CLINICAL HISTORY: Difficulty breathing progress study. TECHNIQUE: Single AP portable upright view of the chest is obtained. COMPARISON: Chest x-ray from 2 days earlier FINDINGS: Post-CABG changes with mediastinal clips and sternal wires is redemonstrated. Cardiac silh ouette size is stable and mildly enlarged with dual lead pacemaker/defibrillator. Chronic parenchymal changes with bilateral mid to lower lung opacities is redemonstrated. Osseous structures remain inta ct. IMPRESSION: Bilateral mid to lower lung increased opacity is redemonstrated, findings consistent with covid-19 infection. No significant change from most recent study.
[2020-11-25] MEDS: ASCORBIC ACID 500 MG TAB PO SCH ×2 (07:58→20:49)
[2020-11-25] MEDS: ZINC SULFATE 220 MG CAP PO SCH (07:58)
[2020-11-25] MEDS: ASPIRIN 81 MG PO SCH (07:58)
[2020-11-25] MEDS: SODIUM BICARBONATE TAB 650 MG TAB PO SCH ×3 (07:58→20:49)
[2020-11-25] MEDS: CHOLECALCIFEROL 25 MCG (1000 IU) TABLET PO SCH (07:59)
[2020-11-25] MEDS: REPAGLINIDE 1 MG TAB PO SCH ×2 (07:59→17:06)
[2020-11-25] MEDS: DEXAMETHASONE SOD PHOSPHATE 10 MG/ML 1 ML VIAL IV SCH (07:59)
[2020-11-25] MEDS: ENOXAPARIN 30 MG/0.3 ML SYRINGE SQ SCH (07:59)
[2020-11-25] MEDS: FAMOTIDINE 20 MG TAB PO SCH (07:59)
[2020-11-25] MEDS: INSULIN ASPART (NovoLOG) 100 UNIT/ML VIAL SQ SCH ×4 (08:00→20:50)
[2020-11-25 08:50] LABS: African American GFR (CKD) 36 (>60 ml/min/1.73 sqM); Anion Gap 9 mmol/L; Blood Urea Nitrogen 66 mg/dL (9-20); Calcium 7.4 mg/dL (8.4-10.2); Carbon Dioxide 21 mmol/L (22-30); Chloride 111 mmol/L (98-107); Glucose 205 mg/dL (74-99); Magnesium 1.8 mg/dL (1.6-2.3); Non-African American GFR(CKD) 31 (>60 ml/min/1.73 sqM); Potassium 4.7 mmol/L (3.5-5.1); Sodium 141 mmol/L (137-145)
[2020-11-25 09:21] LABS: Anisocytosis Slight; Basophils # (A) 0.1 k/uL (0-0.2); Basophils % (A) 1 %; Eosinophils % (A) 0 %; HCT 31.4 % (39.0-53.0); HGB 10.1 gm/dL (13.0-17.5); Hypochromasia Moderate; Lymphocytes # (A) 0.2 k/uL (1.0-4.8); Lymphocytes % (A) 4 %; MCH 31.8 pg (25.0-35.0); MCHC 32.3 g/dL (31.0-37.0); MCV 98.6 fL (80.0-100.0); Macrocytosis Slight; Mean Platelet Volume 8.4; Monocytes # (A) 0.3 k/uL (0-1.0); Monocytes % (A) 5 %; Neutrophils # (A) 4.8 k/uL (1.3-7.7); Neutrophils % (A) 89 %; Platelet Count 257 k/uL (150-450); RBC 3.18 m/uL (4.30-5.90); RDW 16.9 % (11.5-15.5); WBC 5.4 k/uL (3.8-10.6)
[2020-11-25 11:28] LABS: Glucose,Whole Blood 240 mg/dL (75-99)
[2020-11-25] MEDS: FERROUS SULFATE 325 MG TAB PO SCH ×2 (12:44→17:05)
[2020-11-25] MEDS: carvediloL 6.25 MG TAB PO SCH ×2 (12:44→17:05)
[2020-11-25 14:15] LABS: African American GFR (CKD) 34 (>60 ml/min/1.73 sqM); Anion Gap 9 mmol/L; Blood Urea Nitrogen 64 mg/dL (9-20); C Reactive Protein 2.4 mg/dL (<1.0); Calcium 7.7 mg/dL (8.4-10.2); Carbon Dioxide 21 mmol/L (22-30); Chloride 109 mmol/L (98-107); Glucose 276 mg/dL (74-99); LDH 2029 U/L (313-618); Non-African American GFR(CKD) 30 (>60 ml/min/1.73 sqM); Potassium 4.8 mmol/L (3.5-5.1); Sodium 139 mmol/L (137-145)
--- NOTE | 2020-11-25 14:34 | P.PN ---
Subjective Progress Note Date: 11/25/20 Principal diagnosis: Acute COVID-19 pneumonia Acute COVID-19 pneumonia 75-year-old male patient, started having symptoms approximately a week ago when he started feeling a bit tired and fatigued. He subsequently developed fever and diminished appetite and some diarrhea. The patient tested positive for COVID 19 infection 4 days ago and this was again confirmed on 11/19/2020. The patient came into the emergency with weakness and shortness of breath. The patient is currently on 2 L of oxygen by nasal cannula. He is known to have CAD, previous bypass, aortic, chronic disease, diabetes mellitus and diabetic retinopathy and neuropathy and hypothyroidism and gout. Lactate was 0.7, there d-dimer was 0.6, white cell count was at 3.2 with a lymphopenia, creatinine was at 3.37 with a mean of 61. He is also on multivitamins. Chest x-ray showing diffuse bilateral pulmonary infiltrates. On today's evaluation of 4 [phone] the patient is currently on oxygen at 4 L per minute. The patient is quite comfortable. Pulse ox is around 95% and FiO2 can be obviously weaned off. The patient is being seen for a follow-up. The patient is currently being treated with Decadron 6 mg IV every 24 hours. The patient is also on Lovenox 40 mg subcu daily and the patient is also on Remdesivir day #2. No follow-up chest x-rays available from today. The rest of the labs are showing chronic kidney disease with a creatinine of 2.7. The patient has chronic metabolic acidosis which is of a non-anion gap type. On 11/22/2020 patient seen in follow-up. Is comfortable, still desat easily, feels tired, but no acute distress, today's labs have been reviewed, d-dimer 0.69, CRP is 35.6, no LDH. Has not had a chest x-ray, he is currently on 7 L, his pulse ox is 89%, no fever, remains on Remdesivir, today is day 3 of treatment. On 11/23/2020 patient is pretty stable, he remains on 5 L of oxygen, her pulse ox 89-90%, he is breathing comfortably, no worsening dyspnea, his 0.9, saline at 60 per hour, patient completed Remdesivir treatment, he remains on steroids, and prophylactic Lovenox. No worsening dyspnea, today's labs have been reviewed, d- dimer is 1.90, renal profile is slightly improved from yesterday, patient continues on IV fluids, no nausea vomiting or diarrhea, CRP is trending down, LDH with today is pending. On 11/25/2000 patient seen in follow-up on medical surgical floor, he is sitting up in the chair, appears to be breathing comfortably although his oxygen requirements have increased, and is currently on 15 L per high flow nasal cannula up from 12 L from yesterday, he denies any worsening dyspnea, lung sounds reveal diffuse bilateral crackles, no chest discomfort, no signs of any respiratory distress. No cough, no wheezing, today's chest x-ray shows bilateral mid to lower lung increased opacities, findings consistent with COVID- 19 pneumonia, the findings are stable in appearance. Follow-up inflammatory markers showed d-dimer of 19.16, LDH is up to 2028, CRP is 2.4. Patient has completed his Remdesivir course, she remains on daily dose of Decadron 6 mg, and Lovenox 30 mg daily, his renal function appears to be relatively stable, his bun is 64, and creatinine is 2.12 Objective - Vital Signs Vital signs: Vital Signs Temp 96.9 F L 11/25/20 10:00 Pulse 59 L 11/25/20 10:00 Resp 18 11/25/20 10:00 BP 152/63 11/25/20 10:00 Pulse Ox 92 L 11/25/20 10:00 Intake & Output 11/24/20 11/25/20 11/25/20 18:59 06:59 18:59 Intake Total 440 Output Total 900 Balance -900 440 Weight 85.2 kg Intake: Oral 440 Output: Urine 900 Other: Voiding Method Urinal Diaper Diaper External Catheter Incontinent # Voids 2 1 - Exam GENERAL EXAM: Alert, pleasant 75-year-old white male, currently on 15 L, with pulse ox of 92% comfortable in no apparent distress. HEAD: Normocephalic/atraumatic. EYES: Normal reaction of pupils, equal size. Conjunctiva pink, sclera white. NOSE: Clear with pink turbinates. THROAT: No erythema or exudates. NECK: No masses, no JVD, no thyroid enlargement, no adenopathy. CHEST: No chest wall deformity. Symmetrical expansion. LUNGS: Equal air entry with bilateral crackles CVS: Regular rate and rhythm, normal S1 and S2, no gallops, no murmurs, no rubs ABDOMEN: Soft, nontender. No hepatosplenomegaly, normal bowel sounds, no guarding or rigidity. EXTREMITIES: No clubbing, no edema, no cyanosis, 2+ pulses and upper and lower extremities. MUSCULOSKELETAL: Muscle strength and tone normal. SPINE: No scoliosis or deformity SKIN: No rashes CENTRAL NERVOUS SYSTEM: Alert and oriented -3. No focal deficits, tone is normal in all 4 extremities. PSYCHIATRIC: Alert and oriented -3. Appropriate affect. Intact judgment and insight. - Labs CBC & Chem 7: 11/25/20 07:27 11/25/20 13:41 Labs: Abnormal Lab Results - Last 24 Hours (Table) 11/24/20 11/24/20 11/25/20 Range/Units 16:18 20:43 01:13 RBC (4.30-5.90) m/uL Hgb (13.0-17.5) gm/dL Hct (39.0-53.0) % RDW (11.5-15.5) % Lymphocytes # (1.0-4.8) k/uL D-Dimer (<0.60) mg/L FEU Chloride (98-107) mmol/L Carbon Dioxide (22-30) mmol/L BUN (9-20) mg/dL Creatinine (0.66-1.25) mg/dL Glucose (74-99) mg/dL POC Glucose (mg/dL) 282 H 345 H 266 H (75-99) mg/dL Calcium (8.4-10.2) mg/dL Lactate Dehydrogenase (313-618) U/L C-Reactive Protein (<1.0) mg/dL 11/25/20 11/25/20 11/25/20 Range/Units 06:45 07:27 07:27 RBC 3.18 L (4.30-5.90) m/uL Hgb 10.1 L (13.0-17.5) gm/dL Hct 31.4 L (39.0-53.0) % RDW 16.9 H (11.5-15.5) % Lymphocytes # 0.2 L (1.0-4.8) k/uL D-Dimer (<0.60) mg/L FEU Chloride 111 H (98-107) mmol/L Carbon Dioxide 21 L (22-30) mmol/L BUN 66 H (9-20) mg/dL Creatinine 2.05 H (0.66-1.25) mg/dL Glucose 205 H (74-99) mg/dL POC Glucose (mg/dL) 226 H (75-99) mg/dL Calcium 7.4 L (8.4-10.2) mg/dL Lactate Dehydrogenase (313-618) U/L C-Reactive Protein (<1.0) mg/dL 11/25/20 11/25/20 11/25/20 Range/Units 07:27 11:20 13:41 RBC (4.30-5.90) m/uL Hgb (13.0-17.5) gm/dL Hct (39.0-53.0) % RDW (11.5-15.5) % Lymphocytes # (1.0-4.8) k/uL D-Dimer 17.23 H 19.16 H (<0.60) mg/L FEU Chloride (98-107) mmol/L Carbon Dioxide (22-30) mmol/L BUN (9-20) mg/dL Creatinine (0.66-1.25) mg/dL Glucose (74-99) mg/dL POC Glucose (mg/dL) 240 H (75-99) mg/dL Calcium (8.4-10.2) mg/dL Lactate Dehydrogenase (313-618) U/L C-Reactive Protein (<1.0) mg/dL 11/25/20 Range/Units 13:41 RBC (4.30-5.90) m/uL Hgb (13.0-17.5) gm/dL Hct (39.0-53.0) % RDW (11.5-15.5) % Lymphocytes # (1.0-4.8) k/uL D-Dimer (<0.60) mg/L FEU Chloride 109 H (98-107) mmol/L Carbon Dioxide 21 L (22-30) mmol/L BUN 64 H (9-20) mg/dL Creatinine 2.12 H (0.66-1.25) mg/dL Glucose 276 H (74-99) mg/dL POC Glucose (mg/dL) (75-99) mg/dL Calcium 7.7 L (8.4-10.2) mg/dL Lactate Dehydrogenase 2028 H (313-618) U/L C-Reactive Protein 2.4 H (<1.0) mg/dL Assessment and Plan Plan: 1 acute COVID 19 related pneumonia with secondary shortness of breath and hypoxic respiratory failure the patient's symptoms of generalized weakness and dehydration, currently on 4 L of oxygen by nasal cannula, patient was started on Remdesivir on 11/20/2020 2 acute hypoxic respiratory failure currently on 2 L of oxygen by nasal cannula 3 coronary artery disease with previous positive bypass surgery 4 mild troponin leak, could be related to Covid 19 infection 5 history of AICD placement 6 hypothyroidism 7 diabetes mellitus 8 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 I reviewed the nurse practitioner's note and agree with the documented findings and plan of care. Lung sounds are positive for bibasilar crackles. The findings and the impression was discussed with the patient. I attest to the documentation by the nurse practitioner. Time with Patient: Less than 30
[2020-11-25 16:32] LABS: Glucose,Whole Blood 301 mg/dL (75-99)
[2020-11-25] MEDS: SODIUM CHLORIDE 0.9% 1,000 ML IV SCH (16:44)
--- NOTE | 2020-11-25 17:03 | PN ---
PROGRESS NOTE The patient is seen for followup for chronic kidney disease and acute kidney injury. He currently is being treated for COVID pneumonia. Renal function has improved with creatinine staying around 2.0-2.1 mg/dL which is down from about 3.37 on initial admission. The patient denies any significant complaints today. PHYSICAL EXAMINATION: Blood pressure was 152/63, heart rate 59 per minute, he is afebrile. He is maintained on 15 L high-flow nasal cannula. Examination of the lower extremities shows no evidence of edema. Abdomen is soft, nontender. REWINDER exam grossly intact. LAB: Show sodium 139, potassium 4.8, chloride 109. CO2 is 21, BUN 64, serum creatinine 2.12. ASSESSMENT: 1. Acute kidney injury, currently improved. No evidence of urine retention, mostly prerenal and possible component of acute tubular necrosis from underlying COVID-19 infection. 2. Chronic kidney disease stage 4 secondary to diabetic kidney disease, baseline creatinine around 2. 3. COVID pneumonia, maintained on steroids status post Remdesivir and zinc. 4. Metabolic acidosis. 5. Hyponatremia associated with acute kidney injury, currently improved, mostly hypovolemic. Patient is currently maintained on normal saline which we can continue for now. 6. Generalized weakness. PLAN: May continue with saline. Continue to push oral intake. Continue Aranesp for anemia of chronic disease. MMODL / IJN: [id number] /
[2020-11-25] MEDS: allopurinoL 100 MG TAB PO SCH (17:05)
--- NOTE | 2020-11-25 18:53 | PN ---
PROGRESS NOTE DATE OF SERVICE: 11/25/2020 REASON FOR FOLLOWUP: COVID-19 pneumonia. INTERVAL HISTORY: Patient is afebrile. The patient is breathing slightly comfortably, still requiring high-flow oxygen. Denies any chest pain. Cough decreased intensity. No vomiting. No abdominal pain or diarrhea. PHYSICAL EXAMINATION: Blood pressure 147/77 with a pulse of 59. Temperature is 97.6. He is 92% on 15 L nasal cannula. General description is an elderly male lying in bed in no distress. Respiratory system: Unlabored breathing, clear to auscultation anteriorly. Heart S1, S2. Regular rate and rhythm. ABDOMEN: Soft, no tenderness. LABS: D. dimer is up to 98.16, creatinine is 2.12. LDH is 2028. DIAGNOSTIC IMPRESSION AND PLAN: Patient with COVID-19 pneumonia in this patient completed his Remdesivir, currently on dexamethasone, Lovenox, zinc and ascorbic acid. May benefit from Actemra. Will discuss with pulmonary. Continue supportive care. MMODL / IJN: [id number] /
[2020-11-25 20:18] LABS: Glucose,Whole Blood 292 mg/dL (75-99)
[2020-11-25] MEDS: ATORVASTATIN 40 MG TAB PO SCH (20:49)
--- NOTE | 2020-11-25 22:42 | P.PN ---
Progress Note - Text Progress Note Date: 11/25/20 Chief Complaint: Tired History of presenting complaint: Pleasant 75-year-old patient of Dr. Horta. Chronic stable medical conditions include diabetes, hypothyroid, gout, peripheral neuropathy, diabetic retinopathy, chronic kidney disease, coronary artery disease with a history of bypass and AICD. Patient's is by the bedside who provides most of the history. Patient about 7 days ago on Friday every couple of days before that has started feeling a little bit tired. Motor worse on Friday. Also developed a fever. Decreased appetite diet. Had some diarrhea. Body aches. No loss of smell or taste. Patient did have COVID rapid tested on that was negative. Now becomes short of breath with minimal exertion tired rundown. Patient is tested positive for COVID 19. Initial pulse ox on room air was 98% and then did go down to 94% on 2 L. Admitted with acute bilateral COVID 19 pneumonitis, acute hypoxic respiratory failure, acute myocarditis. Placed on dexamethasone Lovenox. IV Remdesivir Today: Remains tired. Short of breath. He eats some breakfast. Oxygen requirement has gone up Review of systems: Was done for constitutional, cardiovascular, GI, pulmonary. relevant finding as above Active Medications Allopurinol (Allopurinol 100 Mg Tab) 100 mg PO W/SUPPER [facility] Last Admin: 11/25/20 17:05 Dose: 100 mg Documented by: Alprazolam (Alprazolam 0.25 Mg Tab) 0.25 mg PO Q8HR PRN PRN Reason: Anxiety Last Admin: 11/25/20 20:49 Dose: 0.25 mg Documented by: Ascorbic Acid (Ascorbic Acid 500 Mg Tab) 500 mg PO BID [facility] Last Admin: 11/25/20 20:49 Dose: 500 mg Documented by: Aspirin (Aspirin 81 Mg) 81 mg PO DAILY [facility] Last Admin: 11/25/20 07:58 Dose: 81 mg Documented by: Atorvastatin Calcium (Atorvastatin 40 Mg Tab) 40 mg PO HS [facility] Last Admin: 11/25/20 20:49 Dose: 40 mg Documented by: Carvedilol (Carvedilol 6.25 Mg Tab) 18.75 mg PO BID@1200,1800 [facility] Last Admin: 11/25/20 17:05 Dose: 18.75 mg Documented by: Cholecalciferol (Cholecalciferol 25 Mcg (1000 Iu) Tablet) 100 mcg PO DAILY [facility] Last Admin: 11/25/20 07:59 Dose: 100 mcg Documented by: Darbepoetin Rizwan (Darbepoetin Rizwan 40 Mcg/0.4 Ml Syringe) 40 mcg SQ Q7D [facility] Last Admin: 11/21/20 16:04 Dose: 40 mcg Documented by: Dexamethasone Sodium Phosphate (Dexamethasone Sod Phosphate 10 Mg/Ml 1 Ml Vial) 6 mg IV DAILY [facility] Last Admin: 11/25/20 07:59 Dose: 6 mg Documented by: Enoxaparin Sodium (Enoxaparin 30 Mg/0.3 Ml Syringe) 30 mg SQ DAILY [facility] Last Admin: 11/25/20 07:59 Dose: 30 mg Documented by: Famotidine (Famotidine 20 Mg Tab) 20 mg PO DAILY [facility] Last Admin: 11/25/20 07:59 Dose: 20 mg Documented by: Ferrous Sulfate (Ferrous Sulfate 325 Mg Tab) 325 mg PO BID@1200,1800 [facility] Last Admin: 11/25/20 17:05 Dose: 325 mg Documented by: Sodium Chloride (Saline 0.9%) 1,000 mls @ 60 mls/hr IV .[id number] [facility] Last Admin: 11/25/20 16:44 Dose: Not Given Documented by: Insulin Aspart (Insulin Aspart (Novolog) 100 Unit/Ml Vial) 0 unit SQ ACHS [facility]; Protocol Last Admin: 11/25/20 20:50 Dose: 5 unit Documented by: Insulin Detemir (Insulin Detemir (Levemir) 100 Unit/Ml Syr) 12 unit SQ HS [facility] Last Admin: 11/25/20 20:50 Dose: 12 unit Documented by: Levothyroxine Sodium (Levothyroxine 100 Mcg Tab) 100 mcg PO 0630 [facility] Last Admin: 11/25/20 06:04 Dose: 100 mcg Documented by: Naloxone HCl (Naloxone 0.4 Mg/Ml 1 Ml Vial) 0.2 mg IV Q2M PRN PRN Reason: Opioid Reversal Repaglinide (Repaglinide 1 Mg Tab) 0.25 mg PO AC-BID [facility] Last Admin: 11/25/20 17:06 Dose: 0.25 mg Documented by: Sodium Bicarbonate (Sodium Bicarbonate Tab 650 Mg Tab) 650 mg PO TID [facility] Last Admin: 11/25/20 20:49 Dose: 650 mg Documented by: Zinc Sulfate (Zinc Sulfate 220 Mg Cap) 220 mg PO DAILY [facility] Last Admin: 11/25/20 07:58 Dose: 220 mg Documented by: Past medical history to include: Diabetes, hypothyroid, gout, diabetic peripheral neuropathy, diabetic retinopathy, chronic kidney disease stage IV, coronary artery disease with bypass, AICD Social history: No history of smoking or alcohol. . 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 PSYCH: [Alert and oriented x3; mood and affect normal NEUROLOGICAL: Cranial nerves grossly intact; no facial asymmetry, moving all 4 limbs Rest of exam per pulmonary and nursing INVESTIGATIONS, reviewed in the clinical context: November 25: D-dimer 98.1 potassium 4.8 bun 64 creatinine 2.12 LDH 202CRP 2.4 Chest x-ray: Bilateral infiltrates November 24: Accu-Cheks to 24 2 [id number] November 23: D-dimer 1.98 potassium 4.7 creatinine 2.09 CRP 27.2 November 22: Potassium 4.8 bun 65 creatinine 2.69 d-dimer 0.69 CRP 35.6 November 21: Potassium 4.8 creatinine 2.7 2-D echocardiogram: EF 50-55% November 20 Potassium 5.1 creatinine 2.85 d-dimer 0.47 CRP 70 WBC 3.2 hemoglobin 9.7 platelets 164 lymphocytes 0.5 sodium 131 potassium 4.8 bun 61 creatinine 3.37 Troponin I 0.073, 0.073, 0.068 albumin 3.2 Urine protein 2+ moderate blood Coronavirus [PCR] detected EKG tracing personally reviewed by me-normal sinus rhythm Chest x-ray film personally reviewed by me-bilateral infiltrates Renal ultrasound-normal Assessment and plan: -Acute bilateral COVID 19 pneumonia. Symptoms started about a week ago.- Worsening on IV dexamethasone, subcu Lovenox, vitamin C vitamin D Pepcid and zinc. November 20 started on Remdesivir -Acute hypoxic respiratory failure, secondary to COVID 19 pneumonia: Worsening Oxygen up to 15 L -Acute myocarditis secondary to COVID 19 Telemetry. watch for arrhythmias. -Acute kidney injury likely ATN from sepsis Improving his IV fluids -Chronic kidney disease stage IV secondary to diabetic kidney disease. Creatinine 2.17 August 2020 Follow renal function -AICD On telemetry -Coronary artery disease with prior history of carotid bypass Continue with Coreg, Lipitor, aspirin -Hypothyroid Continue with Synthroid -Diabetes mellitus type 2, on oral hypoglycemic, uncontrolled with hyperglycemia Follow Accu-Cheks with sliding scale insulin. Increase Levemir to 22 units at night -Chronic gout Continue with allopurinol -Anemia of chronic kidney disease Follow H&H and continue with erythropoietin -Diabetic retinopathy Follow clinically -Diabetic peripheral neuropathy Follow clinically -Hyponatremia from a relative decrease in solute from decreased appetite- improving Saline IV -Metabolic acidosis due to chronic kidney disease Supplement bicarb Clinical worsening. Continue with supportive care. Discussed with patient.
[2020-11-25] MEDS ORDERED: INSULIN DETEMIR (LEVEMIR) 100 UNIT/ML SYR SQ SCH ×2 (22:45→23:00)
[2020-11-26] MEDS: LEVOTHYROXINE 100 MCG TAB PO SCH (05:31)
[2020-11-26 07:14] LABS: Glucose,Whole Blood 117 mg/dL (75-99)
[2020-11-26] MEDS: INSULIN ASPART (NovoLOG) 100 UNIT/ML VIAL SQ SCH ×4 (07:59→22:02)
[2020-11-26] MEDS: FAMOTIDINE 20 MG TAB PO SCH (08:07)
[2020-11-26] MEDS: ZINC SULFATE 220 MG CAP PO SCH (08:07)
[2020-11-26] MEDS: ENOXAPARIN 30 MG/0.3 ML SYRINGE SQ SCH (08:07)
[2020-11-26] MEDS: DEXAMETHASONE SOD PHOSPHATE 10 MG/ML 1 ML VIAL IV SCH (08:07)
[2020-11-26] MEDS: CHOLECALCIFEROL 25 MCG (1000 IU) TABLET PO SCH (08:07)
[2020-11-26] MEDS: ASPIRIN 81 MG PO SCH (08:07)
[2020-11-26] MEDS: ASCORBIC ACID 500 MG TAB PO SCH ×2 (08:07→22:01)
[2020-11-26] MEDS: SODIUM BICARBONATE TAB 650 MG TAB PO SCH ×2 (08:08→22:01)
[2020-11-26] MEDS: REPAGLINIDE 1 MG TAB PO SCH ×2 (08:08→17:06)
[2020-11-26] MEDS: SODIUM CHLORIDE 0.9% 1,000 ML IV SCH (08:14)
[2020-11-26 11:42] LABS: Glucose,Whole Blood 220 mg/dL (75-99)
[2020-11-26 11:47] LABS: Anion Gap 7.6 mmol/L (4.00-12.00); BUN/Creat Ratio 35.5 Ratio (12.00-20.00); C Reactive Protein 1.7 mg/dL (0.0-0.8); Calcium 7.9 mg/dL (8.7-10.3); Carbon Dioxide 24.4 mmol/L (21.6-31.8); Non-African American GFR(CKD) 31.9 (60.0-200.0); Potassium 4.8 mmol/L (3.5-5.5)
[2020-11-26] MEDS: carvediloL 6.25 MG TAB PO SCH ×2 (12:25→17:06)
[2020-11-26] MEDS: FERROUS SULFATE 325 MG TAB PO SCH ×2 (12:25→17:06)
--- NOTE | 2020-11-26 13:01 | PN ---
PROGRESS NOTE The patient is seen for followup for acute kidney injury on top of chronic kidney disease. His renal function has been slowly improving. He is being treated for COVID pneumonia. Serum creatinine staying at about 2.0 mg/dL which is close to his baseline. EXAMINATION: Today patient is comfortable, awake, alert, oriented x3, not in any acute distress. Blood pressure 126/68, heart rate 61 per minute, he is afebrile. Examination shows patient is euvolemic. No evidence of edema of lower extremities. 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 Lungs and heart are not examined. LAB: Show sodium 144, potassium 4.8, chloride 112, BUN 71, creatinine 2.0, calcium 7.9. ASSESSMENT: 1. Acute kidney injury, prerenal/acute tubular necrosis, currently improved. Patient is maintained on IV fluids however he is tolerating oral intake. 2. Metabolic acidosis, maintained on oral sodium bicarb, currently improved. I will decrease the sodium bicarb. 3. Chronic kidney disease stage 4 secondary to diabetic kidney disease, baseline creatinine about 2. 4. COVID pneumonia status post Remdesivir and maintained on zinc and steroids. 5. Hyponatremia associated with acute kidney injury, currently improved. PLAN: Continue Aranesp for anemia. Continue to encourage oral intake. May continue with the fluids. Decrease sodium bicarb and repeat labs in a.m. MMODL / IJN: [id number] /
--- NOTE | 2020-11-26 15:37 | P.PN ---
Subjective Progress Note Date: 11/26/20 Principal diagnosis: Acute COVID-19 pneumonia Acute COVID-19 pneumonia 75-year-old male patient, started having symptoms approximately a week ago when he started feeling a bit tired and fatigued. He subsequently developed fever and diminished appetite and some diarrhea. The patient tested positive for COVID 19 infection 4 days ago and this was again confirmed on 11/19/2020. The patient came into the emergency with weakness and shortness of breath. The patient is currently on 2 L of oxygen by nasal cannula. He is known to have CAD, previous bypass, aortic, chronic disease, diabetes mellitus and diabetic retinopathy and neuropathy and hypothyroidism and gout. Lactate was 0.7, there d-dimer was 0.6, white cell count was at 3.2 with a lymphopenia, creatinine was at 3.37 with a mean of 61. He is also on multivitamins. Chest x-ray showing diffuse bilateral pulmonary infiltrates. On today's evaluation of 4 [phone],021 the patient is currently on oxygen at 4 L per minute. The patient is quite comfortable. Pulse ox is around 95% and FiO2 can be obviously weaned off. The patient is being seen for a follow-up. The patient is currently being treated with Decadron 6 mg IV every 24 hours. The patient is also on Lovenox 40 mg subcu daily and the patient is also on Remdesivir day #2. No follow-up chest x-rays available from today. The rest of the labs are showing chronic kidney disease with a creatinine of 2.7. The patient has chronic metabolic acidosis which is of a non-anion gap type. On 11/22/2020 patient seen in follow-up. Is comfortable, still desat easily, feels tired, but no acute distress, today's labs have been reviewed, d-dimer 0.69, CRP is 35.6, no LDH. Has not had a chest x-ray, he is currently on 7 L, his pulse ox is 89%, no fever, remains on Remdesivir, today is day 3 of treatment. On 11/23/2020 patient is pretty stable, he remains on 5 L of oxygen, her pulse ox 89-90%, he is breathing comfortably, no worsening dyspnea, his 0.9, saline at 60 per hour, patient completed Remdesivir treatment, he remains on steroids, and prophylactic Lovenox. No worsening dyspnea, today's labs have been reviewed, d- dimer is 1.90, renal profile is slightly improved from yesterday, patient continues on IV fluids, no nausea vomiting or diarrhea, CRP is trending down, LDH with today is pending. On 11/25/2000 patient seen in follow-up on medical surgical floor, he is sitting up in the chair, appears to be breathing comfortably although his oxygen requirements have increased, and is currently on 15 L per high flow nasal cannula up from 12 L from yesterday, he denies any worsening dyspnea, lung sounds reveal diffuse bilateral crackles, no chest discomfort, no signs of any respiratory distress. No cough, no wheezing, today's chest x-ray shows bilateral mid to lower lung increased opacities, findings consistent with COVID- 19 pneumonia, the findings are stable in appearance. Follow-up inflammatory markers showed d-dimer of 19.16, LDH is up to 2028, CRP is 2.4. Patient has completed his Remdesivir course, she remains on daily dose of Decadron 6 mg, and Lovenox 30 mg daily, his renal function appears to be relatively stable, his bun is 64, and creatinine is 2.12 On 11/26/2020 patient seen in follow-up on medical surgical floor, he sitting up in the chair, he is breathing comfortably, he is currently down to 13 L, and his pulse ox is 90-94%, his been afebrile, overall she looks stable, he does not appear to be in any acute distress, he is a d-dimer has trended up, and on today's labs it is up to 30.3, and his Lovenox dose will be adjusted. Today's inflammatory markers are improving. He remains on daily dose IV Decadron 6 mg daily, Lovenox, multivitamins, and his IV fluids are infusing at a rate of 60 ML per hour, no new chest x-ray today, his kidney function shows slight improvement Objective - Vital Signs Vital signs: Vital Signs Temp 97.8 F 11/26/20 14:00 Pulse 59 L 11/26/20 14:00 Resp 18 11/26/20 14:00 BP 128/70 11/26/20 14:00 Pulse Ox 90 L 11/26/20 14:00 Intake & Output 11/25/20 11/26/20 11/26/20 18:59 06:59 18:59 Intake Total 440 650 Output Total 700 Balance 440 -700 650 Intake: Oral 440 650 Output: Urine 700 Other: Voiding Method Urinal Urinal Diaper Diaper # Voids 3 3 - Exam GENERAL EXAM: Alert, pleasant 75-year-old white male, currently on 13 L, with pulse ox of 92% comfortable in no apparent distress. HEAD: Normocephalic/atraumatic. EYES: Normal reaction of pupils, equal size. Conjunctiva pink, sclera white. NOSE: Clear with pink turbinates. THROAT: No erythema or exudates. NECK: No masses, no JVD, no thyroid enlargement, no adenopathy. CHEST: No chest wall deformity. Symmetrical expansion. LUNGS: Equal air entry with bilateral crackles CVS: Regular rate and rhythm, normal S1 and S2, no gallops, no murmurs, no rubs ABDOMEN: Soft, nontender. No hepatosplenomegaly, normal bowel sounds, no guarding or rigidity. EXTREMITIES: No clubbing, no edema, no cyanosis, 2+ pulses and upper and lower extremities. MUSCULOSKELETAL: Muscle strength and tone normal. SPINE: No scoliosis or deformity SKIN: No rashes CENTRAL NERVOUS SYSTEM: Alert and oriented -3. No focal deficits, tone is normal in all 4 extremities. PSYCHIATRIC: Alert and oriented -3. Appropriate affect. Intact judgment and insight. - Labs CBC & Chem 7: 11/25/20 07:27 11/26/20 07:14 Labs: Abnormal Lab Results - Last 24 Hours (Table) 11/25/20 11/25/20 11/26/20 Range/Units 16:30 20:17 07:09 D-Dimer (<0.60) mg/L FEU Chloride (96-109) mmol/L BUN (9.0-27.0) mg/dL Creatinine (0.6-1.5) mg/dL Est GFR (CKD-EPI)AfAm (60.0-200.0) Est GFR (CKD-EPI)NonAf (60.0-200.0) BUN/Creatinine Ratio (12.00-20.00) Ratio Glucose (70-110) mg/dL POC Glucose (mg/dL) 301 H 292 H 117 H (75-99) mg/dL Calcium (8.7-10.3) mg/dL Lactate Dehydrogenase (120-246) U/L C-Reactive Protein (0.0-0.8) mg/dL 11/26/20 11/26/20 11/26/20 Range/Units 07:14 07:14 11:36 D-Dimer 30.32 H (<0.60) mg/L FEU Chloride 112 H (96-109) mmol/L BUN 71.0 H (9.0-27.0) mg/dL Creatinine 2.0 H (0.6-1.5) mg/dL Est GFR (CKD-EPI)AfAm 37.0 L (60.0-200.0) Est GFR (CKD-EPI)NonAf 31.9 L (60.0-200.0) BUN/Creatinine Ratio 35.50 H (12.00-20.00) Ratio Glucose 116 H (70-110) mg/dL POC Glucose (mg/dL) 220 H (75-99) mg/dL Calcium 7.9 L (8.7-10.3) mg/dL Lactate Dehydrogenase 750 H (120-246) U/L C-Reactive Protein 1.7 H (0.0-0.8) mg/dL Assessment and Plan Plan: 1 acute COVID 19 related pneumonia with secondary shortness of breath and hypoxic respiratory failure the patient's symptoms of generalized weakness and dehydration, currently on 4 L of oxygen by nasal cannula, patient was started on Remdesivir on 11/20/2020 2 acute hypoxic respiratory failure currently on 2 L of oxygen by nasal cannula 3 coronary artery disease with previous positive bypass surgery 4 mild troponin leak, could be related to Covid 19 infection 5 history of AICD placement 6 hypothyroidism 7 diabetes mellitus 8 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
[2020-11-26 16:58] LABS: Glucose,Whole Blood 289 mg/dL (75-99)
[2020-11-26] MEDS: ALPRAZolam 0.25 MG TAB PO PRN (17:06)
[2020-11-26] MEDS: allopurinoL 100 MG TAB PO SCH (17:06)
--- NOTE | 2020-11-26 18:25 | PN ---
PROGRESS NOTE DATE OF SERVICE: 11/26/2020 REASON FOR FOLLOWUP: COVID-19 infection. INTERVAL HISTORY: Patient is afebrile. The patient is breathing slightly comfortably, still requiring high-flow nasal cannula oxygen. Denies any chest pain or worsening cough. No abdominal pain. No diarrhea. EXAMINATION: Blood pressure 126/68 with a pulse of 71, temperature 97, he is 94% on 19 L high-flow oxygen. General description is an elderly male up in the chair in no distress. Respiratory system: Unlabored breathing, decreased intensity of breath sounds. No wheeze. HEART: S1, S2. Regular rate and rhythm. ABDOMEN: Soft, no tenderness. EXTREMITIES: No edema of the feet. LABS: D. dimer is 230, BUN of 71, creatinine 2.0. LDH is down. DIAGNOSTIC IMPRESSION/PLAN: 1. Patient with acute COVID-19 infection. The patient has received Remdesivir, currently on Lovenox, dose has been adjusted twice a day because of worsening of his D-dimer, on dexamethasone, zinc, ascorbic acid, respiratory support. 2. Monitor clinical course closely. MMODL / IJN: [id number] /
[2020-11-26 21:49] LABS: Glucose,Whole Blood 338 mg/dL (75-99)
[2020-11-26] MEDS: TAMSULOSIN 0.4 MG CAP.ER.24H PO SCH (22:01)
[2020-11-26] MEDS: ATORVASTATIN 40 MG TAB PO SCH (22:01)
[2020-11-26] MEDS: ENOXAPARIN 40 MG/0.4 ML SYRINGE SQ SCH (22:02)
--- NOTE | 2020-11-26 22:02 | P.PN ---
Progress Note - Text Progress Note Date: 11/26/20 Chief Complaint: Tired History of presenting complaint: Pleasant 75-year-old patient of Dr. Horta. Chronic stable medical conditions include diabetes, hypothyroid, gout, peripheral neuropathy, diabetic retinopathy, chronic kidney disease, coronary artery disease with a history of bypass and AICD. Patient's is by the bedside who provides most of the history. Patient about 7 days ago on Friday every couple of days before that has started feeling a little bit tired. Motor worse on Friday. Also developed a fever. Decreased appetite diet. Had some diarrhea. Body aches. No loss of smell or taste. Patient did have COVID rapid tested on that was negative. Now becomes short of breath with minimal exertion tired rundown. Patient is tested positive for COVID 19. Initial pulse ox on room air was 98% and then did go down to 94% on 2 L. Admitted with acute bilateral COVID 19 pneumonitis, acute hypoxic respiratory failure, acute myocarditis. Placed on dexamethasone Lovenox. IV Remdesivir Today: Short of breath. Tired. On 13 L of nasal cannula. Slight cough. Eating about 50%. Review of systems: Was done for constitutional, cardiovascular, GI, pulmonary. relevant finding as above Active Medications Allopurinol (Allopurinol 100 Mg Tab) 100 mg PO W/SUPPER [facility] Last Admin: 11/26/20 17:06 Dose: 100 mg Documented by: Alprazolam (Alprazolam 0.25 Mg Tab) 0.25 mg PO Q8HR PRN PRN Reason: Anxiety Last Admin: 11/26/20 17:06 Dose: 0.25 mg Documented by: Ascorbic Acid (Ascorbic Acid 500 Mg Tab) 500 mg PO BID [facility] Last Admin: 11/26/20 08:07 Dose: 500 mg Documented by: Aspirin (Aspirin 81 Mg) 81 mg PO DAILY [facility] Last Admin: 11/26/20 08:07 Dose: 81 mg Documented by: Atorvastatin Calcium (Atorvastatin 40 Mg Tab) 40 mg PO HS [facility] Last Admin: 11/25/20 20:49 Dose: 40 mg Documented by: Carvedilol (Carvedilol 6.25 Mg Tab) 18.75 mg PO BID@1200,1800 [facility] Last Admin: 11/26/20 17:06 Dose: 18.75 mg Documented by: Cholecalciferol (Cholecalciferol 25 Mcg (1000 Iu) Tablet) 100 mcg PO DAILY [facility] Last Admin: 11/26/20 08:07 Dose: 100 mcg Documented by: Darbepoetin Rizwan (Darbepoetin Rizwan 40 Mcg/0.4 Ml Syringe) 40 mcg SQ Q7D [facility] Last Admin: 11/21/20 16:04 Dose: 40 mcg Documented by: Dexamethasone Sodium Phosphate (Dexamethasone Sod Phosphate 10 Mg/Ml 1 Ml Vial) 6 mg IV DAILY [facility] Last Admin: 11/26/20 08:07 Dose: 6 mg Documented by: Enoxaparin Sodium (Enoxaparin 40 Mg/0.4 Ml Syringe) 40 mg SQ BID [facility] Famotidine (Famotidine 20 Mg Tab) 20 mg PO DAILY [facility] Last Admin: 11/26/20 08:07 Dose: 20 mg Documented by: Ferrous Sulfate (Ferrous Sulfate 325 Mg Tab) 325 mg PO BID@1200,1800 [facility] Last Admin: 11/26/20 17:06 Dose: 325 mg Documented by: Sodium Chloride (Saline 0.9%) 1,000 mls @ 60 mls/hr IV .[id number] [facility] Last Admin: 11/26/20 08:14 Dose: Not Given Documented by: Insulin Aspart (Insulin Aspart (Novolog) 100 Unit/Ml Vial) 0 unit SQ [facility]; Protocol Last Admin: 11/26/20 17:07 Dose: 5 unit Documented by: Insulin Detemir (Insulin Detemir (Levemir) 100 Unit/Ml Syr) 22 unit SQ [facility] Levothyroxine Sodium (Levothyroxine 100 Mcg Tab) 100 mcg PO 0630 [facility] Last Admin: 11/26/20 05:31 Dose: 100 mcg Documented by: Naloxone HCl (Naloxone 0.4 Mg/Ml 1 Ml Vial) 0.2 mg IV Q2M PRN PRN Reason: Opioid Reversal Repaglinide (Repaglinide 1 Mg Tab) 0.25 mg PO AC-BID [facility] Last Admin: 11/26/20 17:06 Dose: 0.25 mg Documented by: Sodium Bicarbonate (Sodium Bicarbonate Tab 650 Mg Tab) 650 mg PO BID [facility] Tamsulosin HCl (Tamsulosin 0.4 Mg Cap.Er.24h) 0.4 mg PO [facility] Zinc Sulfate (Zinc Sulfate 220 Mg Cap) 220 mg PO DAILY [facility] Last Admin: 11/26/20 08:07 Dose: 220 mg Documented by: Past medical history to include: Diabetes, hypothyroid, gout, diabetic peripheral neuropathy, diabetic retinopathy, chronic kidney disease stage IV, coronary artery disease with bypass, AICD Social history: No history of smoking or alcohol. . 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 PSYCH: [Alert and oriented x3; mood and affect normal NEUROLOGICAL: Cranial nerves grossly intact; no facial asymmetry, moving all 4 limbs Rest of exam per pulmonary and nursing INVESTIGATIONS, reviewed in the clinical context: November 26: D-dimer 30.3 potassium 4.8 creatinine 2 LDH and 50 CRP 1.7 November 25: D-dimer 98.1 potassium 4.8 bun 64 creatinine 2.12 LDH 202CRP 2.4 Chest x-ray: Bilateral infiltrates November 24: Accu-Cheks to 24 2 [id number] November 23: D-dimer 1.98 potassium 4.7 creatinine 2.09 CRP 27.2 November 22: Potassium 4.8 bun 65 creatinine 2.69 d-dimer 0.69 CRP 35.6 November 21: Potassium 4.8 creatinine 2.7 2-D echocardiogram: EF 50-55% November 20 Potassium 5.1 creatinine 2.85 d-dimer 0.47 CRP 70 WBC 3.2 hemoglobin 9.7 platelets 164 lymphocytes 0.5 sodium 131 potassium 4.8 bun 61 creatinine 3.37 Troponin I 0.073, 0.073, 0.068 albumin 3.2 Urine protein 2+ moderate blood Coronavirus [PCR] detected EKG tracing personally reviewed by me-normal sinus rhythm Chest x-ray film personally reviewed by me-bilateral infiltrates Renal ultrasound-normal Assessment and plan: -Acute bilateral COVID 19 pneumonia. Symptoms started about a week ago.-Slow to respond on IV dexamethasone, subcu Lovenox, vitamin C vitamin D Pepcid and zinc. November 20 started on Remdesivir -Acute hypoxic respiratory failure, secondary to COVID 19 pneumonia: Slow to respond Oxygen -13 L -Acute myocarditis secondary to COVID 19 Telemetry. watch for arrhythmias. -Acute kidney injury likely ATN from sepsis Improving his IV fluids -Chronic kidney disease stage IV secondary to diabetic kidney disease. Creatinine 2.17 August 2020 Follow renal function -AICD On telemetry -Coronary artery disease with prior history of carotid bypass Continue with Coreg, Lipitor, aspirin -Hypothyroid Continue with Synthroid -Diabetes mellitus type 2, on oral hypoglycemic, uncontrolled with hyperglycemia Follow Accu-Cheks with sliding scale insulin. Increase Levemir to 22 units at night -Chronic gout Continue with allopurinol -Anemia of chronic kidney disease Follow H&H and continue with erythropoietin -Diabetic retinopathy Follow clinically -Diabetic peripheral neuropathy Follow clinically -Hyponatremia from a relative decrease in solute from decreased appetite- improving Saline IV -Metabolic acidosis due to chronic kidney disease Supplement bicarb Prognosis guarded. Follow closely.
[2020-11-26] MEDS: INSULIN DETEMIR (LEVEMIR) 100 UNIT/ML SYR SQ SCH (22:29)
[2020-11-26] MEDS ORDERED: diazePAM 2 MG TAB PO STA (22:37)
[2020-11-27] MEDS: SODIUM CHLORIDE 0.9% 1,000 ML IV SCH (03:32)
[2020-11-27 03:59] LABS: Glucose,Whole Blood 244 mg/dL (75-99)
[2020-11-27] MEDS: LEVOTHYROXINE 100 MCG TAB PO SCH (06:05)
[2020-11-27 07:02] LABS: Glucose,Whole Blood 203 mg/dL (75-99)
[2020-11-27] MEDS: CHOLECALCIFEROL 25 MCG (1000 IU) TABLET PO SCH (07:44)
[2020-11-27] MEDS: SODIUM BICARBONATE TAB 650 MG TAB PO SCH ×2 (07:44→20:57)
[2020-11-27] MEDS: ASCORBIC ACID 500 MG TAB PO SCH ×2 (07:44→20:57)
[2020-11-27] MEDS: FAMOTIDINE 20 MG TAB PO SCH (07:44)
[2020-11-27] MEDS: ENOXAPARIN 40 MG/0.4 ML SYRINGE SQ SCH ×2 (07:44→20:57)
[2020-11-27] MEDS: ASPIRIN 81 MG PO SCH (07:44)
[2020-11-27] MEDS: ZINC SULFATE 220 MG CAP PO SCH (07:44)
[2020-11-27] MEDS: INSULIN ASPART (NovoLOG) 100 UNIT/ML VIAL SQ SCH ×4 (07:45→20:58)
[2020-11-27] MEDS: DEXAMETHASONE SOD PHOSPHATE 10 MG/ML 1 ML VIAL IV SCH (07:45)
[2020-11-27] MEDS: ALPRAZolam 0.25 MG TAB PO PRN ×2 (07:47→23:21)
--- NOTE | 2020-11-27 07:54 | XR ---
EXAMINATION TYPE: XR chest 1V portable DATE OF EXAM: 11/27/2020 CLINICAL HISTORY: Difficulty breathing and covid progress study. TECHNIQUE: Single AP portable upright view of the chest is obtained. COMPARISON: Chest x-ray from 2 days earlier and older studies FINDINGS: Post-CABG changes with mediastinal clips and sternal wires is redemonstrated. Cardiac silh ouette size is stable and mildly enlarged with dual lead pacemaker/defibrillator. Background lung vol umes and Chronic parenchymal changes with bilateral mid to lower lung reticulonodular and confluent o pacities is redemonstrated. Osseous structures remain intact. IMPRESSION: Cardiomegaly and low lung volumes with Bilateral mid to lower lung reticular and confluen t opacities redemonstrated, findings consistent with covid-19 infection. No significant change from m ost recent study.
[2020-11-27] MEDS: REPAGLINIDE 1 MG TAB PO SCH ×2 (09:05→16:44)
[2020-11-27 10:30] LABS: HCT 29.4 % (39.6-50.0); HGB 9.3 g/dL (13.0-17.0); MCH 30.3 pg (27.0-32.0); MCHC 31.6 g/dL (32.0-37.0); MCV 95.8 fL (80.0-97.0); Mean Platelet Volume 11.5 fL (9.5-12.2); Platelet Count 244 X 10*3/uL (140-440); RBC 3.07 X 10*6/uL (4.40-5.60); RDW 16.4 % (11.5-14.5); WBC 5.45 X 10*3/uL (4.50-10.00)
[2020-11-27 10:49] LABS: Anion Gap 9.1 mmol/L (4.00-12.00); BUN/Creat Ratio 38.18 Ratio (12.00-20.00); C Reactive Protein 1.2 mg/dL (0.0-0.8); Calcium 7.9 mg/dL (8.7-10.3); Carbon Dioxide 20.9 mmol/L (21.6-31.8); Non-African American GFR(CKD) 28.5 (60.0-200.0); Potassium 4.8 mmol/L (3.5-5.5)
[2020-11-27 11:30] LABS: Glucose,Whole Blood 294 mg/dL (75-99)
[2020-11-27] MEDS: FERROUS SULFATE 325 MG TAB PO SCH ×2 (11:48→16:44)
[2020-11-27] MEDS: carvediloL 6.25 MG TAB PO SCH ×2 (11:48→16:44)
[2020-11-27 11:50] LABS: Acanthocytes 2+; Basophils # (M) 0 X 10*3/uL (0.00-0.10); Eosinophils # (M) 0 X 10*3/uL (0.04-0.35); Lymphocytes # (M) 0.27 X 10*3/uL (0.90-5.00); Metamyelocytes % 3 % (0-0); Monocytes # (M) 0.16 X 10*3/uL (0.20-1.00); Myelocytes % 3 % (0-0); Neutrophils # (M) 4.69 X 10*3/uL (2.00-8.90); Neutrophils % (M) 86 %; Schistocytes 1+
--- NOTE | 2020-11-27 15:15 | P.PN ---
Subjective Progress Note Date: 11/27/20 Principal diagnosis: Acute COVID-19 pneumonia Acute COVID-19 pneumonia 75-year-old male patient, started having symptoms approximately a week ago when he started feeling a bit tired and fatigued. He subsequently developed fever and diminished appetite and some diarrhea. The patient tested positive for COVID 19 infection 4 days ago and this was again confirmed on 11/19/2020. The patient came into the emergency with weakness and shortness of breath. The patient is currently on 2 L of oxygen by nasal cannula. He is known to have CAD, previous bypass, aortic, chronic disease, diabetes mellitus and diabetic retinopathy and neuropathy and hypothyroidism and gout. Lactate was 0.7, there d-dimer was 0.6, white cell count was at 3.2 with a lymphopenia, creatinine was at 3.37 with a mean of 61. He is also on multivitamins. Chest x-ray showing diffuse bilateral pulmonary infiltrates. On today's evaluation of [phone] the patient is currently on oxygen at 4 L per minute. The patient is quite comfortable. Pulse ox is around 95% and FiO2 can be obviously weaned off. The patient is being seen for a follow-up. The patient is currently being treated with Decadron 6 mg IV every 24 hours. The patient is also on Lovenox 40 mg subcu daily and the patient is also on Remdesivir day #2. No follow-up chest x-rays available from today. The rest of the labs are showing chronic kidney disease with a creatinine of 2.7. The patient has chronic metabolic acidosis which is of a non-anion gap type. On 11/22/2020 patient seen in follow-up. Is comfortable, still desat easily, feels tired, but no acute distress, today's labs have been reviewed, d-dimer 0.69, CRP is 35.6, no LDH. Has not had a chest x-ray, he is currently on 7 L, his pulse ox is 89%, no fever, remains on Remdesivir, today is day 3 of treatment. On 11/23/2020 patient is pretty stable, he remains on 5 L of oxygen, her pulse ox 89-90%, he is breathing comfortably, no worsening dyspnea, his 0.9, saline at 60 per hour, patient completed Remdesivir treatment, he remains on steroids, and prophylactic Lovenox. No worsening dyspnea, today's labs have been reviewed, d- dimer is 1.90, renal profile is slightly improved from yesterday, patient continues on IV fluids, no nausea vomiting or diarrhea, CRP is trending down, LDH with today is pending. On 11/25/2000 patient seen in follow-up on medical surgical floor, he is sitting up in the chair, appears to be breathing comfortably although his oxygen requirements have increased, and is currently on 15 L per high flow nasal cannula up from 12 L from yesterday, he denies any worsening dyspnea, lung sounds reveal diffuse bilateral crackles, no chest discomfort, no signs of any respiratory distress. No cough, no wheezing, today's chest x-ray shows bilateral mid to lower lung increased opacities, findings consistent with COVID- 19 pneumonia, the findings are stable in appearance. Follow-up inflammatory markers showed d-dimer of 19.16, LDH is up to 2028, CRP is 2.4. Patient has completed his Remdesivir course, she remains on daily dose of Decadron 6 mg, and Lovenox 30 mg daily, his renal function appears to be relatively stable, his bun is 64, and creatinine is 2.12 On 11/26/2020 patient seen in follow-up on medical surgical floor, he sitting up in the chair, he is breathing comfortably, he is currently down to 13 L, and his pulse ox is 90-94%, his been afebrile, overall she looks stable, he does not appear to be in any acute distress, he is a d-dimer has trended up, and on today's labs it is up to 30.3, and his Lovenox dose will be adjusted. Today's inflammatory markers are improving. He remains on daily dose IV Decadron 6 mg daily, Lovenox, multivitamins, and his IV fluids are infusing at a rate of 60 ML per hour, no new chest x-ray today, his kidney function shows slight improvement On 11/27/2000 patient seen in follow-up on medical surgical floor, he remains on high flow oxygen 15 L, and the nonrebreather mask, he does desat when he removes his nonrebreather mask down to 86% however he denies any dyspnea, he does not feel stressed at all, and looks very comfortable, he sitting up in the recliner, awake and alert, oriented 3, he is afebrile, hemodynamically has been stable, he has no specific complaints, and his today's chest x-ray shows cardiomegaly and low lung volumes with bilateral mid to lower lung reticular and confluent opacities consistent with COVID-19 pneumonia with no change from previousexam. Today's labs have been reviewed, white blood cell count is 5.45, hemoglobin is 9.3, no d-dimer today, but yesterday's d-dimer was quite elevated at 30.3, and his Lovenox dose was adjusted and increased to 40 mg twice a day, his electrolyte panel shows CO2 of 28.1, but prostate electrolytes are within normal limits, B1 is 84, creatinine is 2.2, his LDH is down to 687, improving, his CRP is 1.2 on today's labs. He continues on Decadron 6 mg daily, he is on Lovenox 40 mg twice a day, and he is receiving IV hydration at 60 ML per hour, nephrology is following Objective - Vital Signs Vital signs: Vital Signs Temp 98.2 F 11/27/20 13:05 Pulse 67 11/27/20 13:05 Resp 18 11/27/20 13:05 BP 154/70 11/27/20 13:05 Pulse Ox 86 L 11/27/20 13:40 Intake & Output 11/26/20 11/27/20 11/27/20 18:59 06:59 18:59 Intake Total 950 Output Total 650 Balance 950 -650 Intake: Oral 950 Output: Urine 650 Other: Voiding Method Urinal Urinal Urinal Diaper Diaper Diaper # Voids 3 1 - Exam GENERAL EXAM: Alert, pleasant 75-year-old white male, currently on 15 l/min and 100 % NRB, with pulse ox of 92% comfortable in no apparent distress. HEAD: Normocephalic/atraumatic. EYES: Normal reaction of pupils, equal size. Conjunctiva pink, sclera white. NOSE: Clear with pink turbinates. THROAT: No erythema or exudates. NECK: No masses, no JVD, no thyroid enlargement, no adenopathy. CHEST: No chest wall deformity. Symmetrical expansion. LUNGS: Equal air entry with bilateral crackles CVS: Regular rate and rhythm, normal S1 and S2, no gallops, no murmurs, no rubs ABDOMEN: Soft, nontender. No hepatosplenomegaly, normal bowel sounds, no guarding or rigidity. EXTREMITIES: No clubbing, no edema, no cyanosis, 2+ pulses and upper and lower extremities. MUSCULOSKELETAL: Muscle strength and tone normal. SPINE: No scoliosis or deformity SKIN: No rashes CENTRAL NERVOUS SYSTEM: Alert and oriented -3. No focal deficits, tone is normal in all 4 extremities. PSYCHIATRIC: Alert and oriented -3. Appropriate affect. Intact judgment and insight. - Labs CBC & Chem 7: 11/27/20 06:10 11/27/20 06:10 Labs: Abnormal Lab Results - Last 24 Hours (Table) 11/26/20 11/26/20 11/27/20 Range/Units 16:54 21:47 03:57 RBC (4.40-5.60) X 10*6/uL Hgb (13.0-17.0) g/dL Hct (39.6-50.0) % MCHC (32.0-37.0) g/dL RDW (11.5-14.5) % Absolute Nucleated RBC (0.00-0.00) X 10*3/uL Metamyelocytes % (0-0) % Myelocytes % (0-0) % Lymphocytes # (Manual) (0.90-5.00) X 10*3/uL Monocytes # (Manual) (0.20-1.00) X 10*3/uL Eosinophils # (Manual) (0.04-0.35) X 10*3/uL NRBC/100 WBC Diff (0.0-0.0) /100 WBCS Carbon Dioxide (21.6-31.8) mmol/L BUN (9.0-27.0) mg/dL Creatinine (0.6-1.5) mg/dL Est GFR (CKD-EPI)AfAm (60.0-200.0) Est GFR (CKD-EPI)NonAf (60.0-200.0) BUN/Creatinine Ratio (12.00-20.00) Ratio Glucose (70-110) mg/dL POC Glucose (mg/dL) 289 H 338 H 244 H (75-99) mg/dL Calcium (8.7-10.3) mg/dL Lactate Dehydrogenase (120-246) U/L C-Reactive Protein (0.0-0.8) mg/dL 11/27/20 11/27/20 11/27/20 Range/Units 06:10 06:10 06:58 RBC 3.07 L (4.40-5.60) X 10*6/uL Hgb 9.3 L (13.0-17.0) g/dL Hct 29.4 L (39.6-50.0) % MCHC 31.6 L (32.0-37.0) g/dL RDW 16.4 H (11.5-14.5) % Absolute Nucleated RBC 0.03 H (0.00-0.00) X 10*3/uL Metamyelocytes % 3 H (0-0) % Myelocytes % 3 H (0-0) % Lymphocytes # (Manual) 0.27 L (0.90-5.00) X 10*3/uL Monocytes # (Manual) 0.16 L (0.20-1.00) X 10*3/uL Eosinophils # (Manual) 0 L (0.04-0.35) X 10*3/uL NRBC/100 WBC Diff 0.6 H (0.0-0.0) /100 WBCS Carbon Dioxide 20.9 L (21.6-31.8) mmol/L BUN 84.0 H (9.0-27.0) mg/dL Creatinine 2.2 H (0.6-1.5) mg/dL Est GFR (CKD-EPI)AfAm 33.0 L (60.0-200.0) Est GFR (CKD-EPI)NonAf 28.5 L (60.0-200.0) BUN/Creatinine Ratio 38.18 H (12.00-20.00) Ratio Glucose 209 H (70-110) mg/dL POC Glucose (mg/dL) 203 H (75-99) mg/dL Calcium 7.9 L (8.7-10.3) mg/dL Lactate Dehydrogenase 687 H (120-246) U/L C-Reactive Protein 1.2 H (0.0-0.8) mg/dL 11/27/20 Range/Units 11:26 RBC (4.40-5.60) X 10*6/uL Hgb (13.0-17.0) g/dL Hct (39.6-50.0) % MCHC (32.0-37.0) g/dL RDW (11.5-14.5) % Absolute Nucleated RBC (0.00-0.00) X 10*3/uL Metamyelocytes % (0-0) % Myelocytes % (0-0) % Lymphocytes # (Manual) (0.90-5.00) X 10*3/uL Monocytes # (Manual) (0.20-1.00) X 10*3/uL Eosinophils # (Manual) (0.04-0.35) X 10*3/uL NRBC/100 WBC Diff (0.0-0.0) /100 WBCS Carbon Dioxide (21.6-31.8) mmol/L BUN (9.0-27.0) mg/dL Creatinine (0.6-1.5) mg/dL Est GFR (CKD-EPI)AfAm (60.0-200.0) Est GFR (CKD-EPI)NonAf (60.0-200.0) BUN/Creatinine Ratio (12.00-20.00) Ratio Glucose (70-110) mg/dL POC Glucose (mg/dL) 294 H (75-99) mg/dL Calcium (8.7-10.3) mg/dL Lactate Dehydrogenase (120-246) U/L C-Reactive Protein (0.0-0.8) mg/dL Assessment and Plan Plan: 1 acute COVID 19 related pneumonia with secondary shortness of breath and hypoxic respiratory failure the patient's symptoms of generalized weakness and dehydration, currently on 4 L of oxygen by nasal cannula, patient was started on Remdesivir on 11/20/2020 2 acute hypoxic respiratory failure currently on 2 L of oxygen by nasal cannula 3 coronary artery disease with previous positive bypass surgery 4 mild troponin leak, could be related to Covid 19 infection 5 history of AICD placement 6 hypothyroidism 7 diabetes mellitus 8 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 I reviewed the nurse practitioner's note and agree with the documented findings and plan of care. Lung sounds are positive for bibasilar crackles. The findings and the impression was discussed with the patient. I attest to the documentation by the nurse practitioner. Time with Patient: Less than 30
[2020-11-27] MEDS ORDERED: FUROSEMIDE 10 MG/ML 4 ML VIAL IV STA (15:55)
--- NOTE | 2020-11-27 16:29 | PN ---
PROGRESS NOTE DATE OF SERVICE: 11/27/2020 REASON FOR FOLLOWUP: COVID-19 pneumonia. INTERVAL HISTORY: The patient is afebrile. The patient is breathing comfortably, however, requiring non- rebreather to maintain his sats. The patient denies having any chest pain. No worsening cough. No abdominal pain or diarrhea. PHYSICAL EXAMINATION: Blood pressure 154/70 with a pulse of 67, temperature 98.2. He is 98% on 15 L non- rebreather. General description is an elderly male lying in bed in no distress. RESPIRATORY SYSTEM: Unlabored breathing, decreased intensity of breath sounds. No wheeze. HEART: S1, S2. Regular rate and rhythm. ABDOMEN: Soft, no tenderness. LABS: Hemoglobin is 9.3, white count of 5.45. BUN of 84, creatinine is 2.2. DIAGNOSTIC IMPRESSION AND PLAN: Patient with acute COVID-19 infection pneumonia. This patient has completed his remdesivir therapy and received dose of Actemra. Patient is currently on dexamethasone, Lovenox, zinc, ascorbic acid to continue along with respiratory support and monitor clinical course closely. MMODL / IJN: [id number] /
[2020-11-27 16:32] LABS: Glucose,Whole Blood 339 mg/dL (75-99)
[2020-11-27] MEDS: allopurinoL 100 MG TAB PO SCH (16:44)
--- NOTE | 2020-11-27 17:50 | PN ---
PROGRESS NOTE Patient is seen for followup for acute kidney injury on top of chronic kidney disease. Patient's renal function is fairly stable. However, this morning he appears to be more short of breath. PHYSICAL EXAMINATION: Blood pressure this morning 138/74, heart rate 66 per minute. He is afebrile. Examination shows no significant edema, lower extremities. Abdomen is soft, nontender. Lungs and heart are not examined. SENIOR CONSUMER INSIGHTS CONSULTANT exam grossly intact. LABS: Hemoglobin 9.3 sodium 138, potassium 4.8, chloride 108. CO2 is 20.9, BUN 84, creatinine 2.2 mg/dL. ASSESSMENT: 1. Chronic kidney disease, NKF stage IV, currently at baseline. 2. COVID-19 pneumonia with slightly worse respiratory status today. Will give one dose of IV Lasix. 3. Acute hypoxic respiratory failure secondary to COVID pneumonia. 4. Hyponatremia associated with acute kidney injury, now resolved. 5. Metabolic acidosis, maintained on sodium bicarb, dose of which was decreased yesterday. PLAN: Discontinue IV fluids. Lasix 40 mg IV push x1. MMODL / IJN: [id number] /
[2020-11-27 20:00] LABS: Glucose,Whole Blood 358 mg/dL (75-99)
[2020-11-27] MEDS: TAMSULOSIN 0.4 MG CAP.ER.24H PO SCH (20:57)
[2020-11-27] MEDS: INSULIN DETEMIR (LEVEMIR) 100 UNIT/ML SYR SQ SCH (20:57)
[2020-11-27] MEDS: ATORVASTATIN 40 MG TAB PO SCH (20:57)
--- NOTE | 2020-11-27 22:36 | P.PN ---
Progress Note - Text Progress Note Date: 11/27/20 Chief Complaint: Tired History of presenting complaint: Pleasant 75-year-old patient of Dr. Hotra. Chronic stable medical conditions include diabetes, hypothyroid, gout, peripheral neuropathy, diabetic retinopathy, chronic kidney disease, coronary artery disease with a history of bypass and AICD. Patient's is by the bedside who provides most of the history. Patient about 7 days ago on Friday every couple of days before that has started feeling a little bit tired. Motor worse on Friday. Also developed a fever. Decreased appetite diet. Had some diarrhea. Body aches. No loss of smell or taste. Patient did have COVID rapid tested on that was negative. Now becomes short of breath with minimal exertion tired rundown. Patient is tested positive for COVID 19. Initial pulse ox on room air was 98% and then did go down to 94% on 2 L. Admitted with acute bilateral COVID 19 pneumonitis, acute hypoxic respiratory failure, acute myocarditis. Placed on dexamethasone Lovenox. IV Remdesivir Today: More Short of breath. Tired. On 15 L of nasal cannula. Slight cough. Eating about 35%. Review of systems: Was done for constitutional, cardiovascular, GI, pulmonary. relevant finding as above Active Medications Allopurinol (Allopurinol 100 Mg Tab) 100 mg PO W/SUPPER [facility] Last Admin: 11/27/20 16:44 Dose: 100 mg Documented by: Alprazolam (Alprazolam 0.25 Mg Tab) 0.25 mg PO Q8HR PRN PRN Reason: Anxiety Last Admin: 11/27/20 07:47 Dose: 0.25 mg Documented by: Ascorbic Acid (Ascorbic Acid 500 Mg Tab) 500 mg PO BID [facility] Last Admin: 11/27/20 20:57 Dose: 500 mg Documented by: Aspirin (Aspirin 81 Mg) 81 mg PO DAILY [facility] Last Admin: 11/27/20 07:44 Dose: 81 mg Documented by: Atorvastatin Calcium (Atorvastatin 40 Mg Tab) 40 mg PO HS [facility] Last Admin: 11/27/20 20:57 Dose: 40 mg Documented by: Carvedilol (Carvedilol 6.25 Mg Tab) 18.75 mg PO BID@1200,1800 [facility] Last Admin: 11/27/20 16:44 Dose: 18.75 mg Documented by: Cholecalciferol (Cholecalciferol 25 Mcg (1000 Iu) Tablet) 100 mcg PO DAILY [facility] Last Admin: 11/27/20 07:44 Dose: 100 mcg Documented by: Darbepoetin Rizwan (Darbepoetin Rizwan 40 Mcg/0.4 Ml Syringe) 40 mcg SQ Q7D [facility] Last Admin: 11/21/20 16:04 Dose: 40 mcg Documented by: Dexamethasone Sodium Phosphate (Dexamethasone Sod Phosphate 10 Mg/Ml 1 Ml Vial) 6 mg IV DAILY [facility] Last Admin: 11/27/20 07:45 Dose: 6 mg Documented by: Enoxaparin Sodium (Enoxaparin 40 Mg/0.4 Ml Syringe) 40 mg SQ BID [facility] Last Admin: 11/27/20 20:57 Dose: 40 mg Documented by: Famotidine (Famotidine 20 Mg Tab) 20 mg PO DAILY [facility] Last Admin: 11/27/20 07:44 Dose: 20 mg Documented by: Ferrous Sulfate (Ferrous Sulfate 325 Mg Tab) 325 mg PO BID@1200,1800 [facility] Last Admin: 11/27/20 16:44 Dose: 325 mg Documented by: Insulin Aspart (Insulin Aspart (Novolog) 100 Unit/Ml Vial) 0 unit SQ [facility]; Protocol Last Admin: 11/27/20 20:58 Dose: 6 unit Documented by: Insulin Detemir (Insulin Detemir (Levemir) 100 Unit/Ml Syr) 22 unit SQ [facility] Last Admin: 11/27/20 20:57 Dose: 22 unit Documented by: Levothyroxine Sodium (Levothyroxine 100 Mcg Tab) 100 mcg PO 0630 [facility] Last Admin: 11/27/20 06:05 Dose: 100 mcg Documented by: Naloxone HCl (Naloxone 0.4 Mg/Ml 1 Ml Vial) 0.2 mg IV Q2M PRN PRN Reason: Opioid Reversal Repaglinide (Repaglinide 1 Mg Tab) 0.25 mg PO AC-BID [facility] Last Admin: 11/27/20 16:44 Dose: 0.25 mg Documented by: Sodium Bicarbonate (Sodium Bicarbonate Tab 650 Mg Tab) 650 mg PO BID [facility] Last Admin: 11/27/20 20:57 Dose: 650 mg Documented by: Tamsulosin HCl (Tamsulosin 0.4 Mg Cap.Er.24h) 0.4 mg PO [facility] Last Admin: 11/27/20 20:57 Dose: 0.4 mg Documented by: Zinc Sulfate (Zinc Sulfate 220 Mg Cap) 220 mg PO DAILY [facility] Last Admin: 11/27/20 07:44 Dose: 220 mg Documented by: Past medical history to include: Diabetes, hypothyroid, gout, diabetic peripheral neuropathy, diabetic retinopathy, chronic kidney disease stage IV, coronary artery disease with bypass, AICD Social history: No history of smoking or alcohol. . 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 PSYCH: [Alert and oriented x3; mood and affect normal NEUROLOGICAL: Cranial nerves grossly intact; no facial asymmetry, moving all 4 limbs Rest of exam per pulmonary and nursing INVESTIGATIONS, reviewed in the clinical context: November 27: WBC 5.4 hemoglobin 9.3 potassium 4.8 creatinine 2.2 LDH 687 CRP 1.2 November 26: D-dimer 30.3 potassium 4.8 creatinine 2 LDH and 50 CRP 1.7 November 25: D-dimer 98.1 potassium 4.8 bun 64 creatinine 2.12 LDH 202CRP 2.4 Chest x-ray: Bilateral infiltrates November 24: Accu-Cheks to 24 2 [id number] November 23: D-dimer 1.98 potassium 4.7 creatinine 2.09 CRP 27.2 November 22: Potassium 4.8 bun 65 creatinine 2.69 d-dimer 0.69 CRP 35.6 November 21: Potassium 4.8 creatinine 2.7 2-D echocardiogram: EF 50-55% November 20 Potassium 5.1 creatinine 2.85 d-dimer 0.47 CRP 70 WBC 3.2 hemoglobin 9.7 platelets 164 lymphocytes 0.5 sodium 131 potassium 4.8 bun 61 creatinine 3.37 Troponin I 0.073, 0.073, 0.068 albumin 3.2 Urine protein 2+ moderate blood Coronavirus [PCR] detected EKG tracing personally reviewed by me-normal sinus rhythm Chest x-ray film personally reviewed by me-bilateral infiltrates Renal ultrasound-normal Assessment and plan: -Acute bilateral COVID 19 pneumonia. Symptoms started about a week ago.-Slow to respond on IV dexamethasone, subcu Lovenox, vitamin C vitamin D Pepcid and zinc. November 20 started on Remdesivir -Acute hypoxic respiratory failure, secondary to COVID 19 pneumonia: Worsening Oxygen - 15 L -Acute myocarditis secondary to COVID 19 Telemetry. watch for arrhythmias. -Acute kidney injury likely ATN from sepsis Improved with IV fluids. -Chronic kidney disease stage IV secondary to diabetic kidney disease. Creatinine 2.17 August 2020 Follow renal function -AICD On telemetry -Coronary artery disease with prior history of carotid bypass Continue with Coreg, Lipitor, aspirin -Hypothyroid Continue with Synthroid -Diabetes mellitus type 2, on oral hypoglycemic, uncontrolled with hyperglycemia Follow Accu-Cheks with sliding scale insulin. Increase Levemir to 28 units at night -Chronic gout Continue with allopurinol -Anemia of chronic kidney disease Follow H&H and continue with erythropoietin -Diabetic retinopathy Follow clinically -Diabetic peripheral neuropathy Follow clinically -Hyponatremia from a relative decrease in solute from decreased appetite- improving Saline IV -Metabolic acidosis due to chronic kidney disease Supplement bicarb Increase Levemir to 28 units. Discussed with the patient. Follow with pulmonary. Prognosis guarded
[2020-11-27] MEDS ORDERED: INSULIN DETEMIR (LEVEMIR) 100 UNIT/ML SYR SQ SCH (22:45)
[2020-11-28] MEDS: LEVOTHYROXINE 100 MCG TAB PO SCH (05:29)
[2020-11-28 06:56] LABS: Glucose,Whole Blood 222 mg/dL (75-99)
[2020-11-28] MEDS: ALPRAZolam 0.25 MG TAB PO PRN ×2 (07:16→21:14)
[2020-11-28] MEDS: REPAGLINIDE 1 MG TAB PO SCH ×2 (07:16→16:44)
[2020-11-28] MEDS: SODIUM BICARBONATE TAB 650 MG TAB PO SCH ×2 (07:17→21:14)
[2020-11-28] MEDS: CHOLECALCIFEROL 25 MCG (1000 IU) TABLET PO SCH (07:17)
[2020-11-28] MEDS: DEXAMETHASONE SOD PHOSPHATE 10 MG/ML 1 ML VIAL IV SCH (07:17)
[2020-11-28] MEDS: ASCORBIC ACID 500 MG TAB PO SCH ×2 (07:17→21:13)
[2020-11-28] MEDS: ASPIRIN 81 MG PO SCH ×2 (07:17→09:41)
[2020-11-28] MEDS: FAMOTIDINE 20 MG TAB PO SCH (07:17)
[2020-11-28] MEDS: INSULIN ASPART (NovoLOG) 100 UNIT/ML VIAL SQ SCH ×4 (07:17→21:13)
[2020-11-28] MEDS: ZINC SULFATE 220 MG CAP PO SCH (07:17)
[2020-11-28] MEDS: ENOXAPARIN 40 MG/0.4 ML SYRINGE SQ SCH ×2 (07:18→21:13)
[2020-11-28] MEDS ORDERED: FUROSEMIDE 10 MG/ML 4 ML VIAL IV STA (09:23)
[2020-11-28 11:31] LABS: Glucose,Whole Blood 281 mg/dL (75-99)
[2020-11-28] MEDS: carvediloL 6.25 MG TAB PO SCH ×2 (11:58→16:44)
[2020-11-28] MEDS: DARBEPOETIN ALFA 40 MCG/0.4 ML SYRINGE SQ SCH (11:58)
[2020-11-28] MEDS: FERROUS SULFATE 325 MG TAB PO SCH ×2 (11:58→16:44)
--- NOTE | 2020-11-28 15:00 | PN ---
PROGRESS NOTE The patient is seen for followup for acute kidney injury and chronic kidney disease. He is being treated for COVID pneumonia. Renal function has been stable. Patient has been started on diuretics. This morning he is comfortable he is not in any acute distress. PHYSICAL EXAMINATION: Blood pressure was 147/75, heart rate 67 per minute. He is afebrile. Maintained on high-flow oxygen with non-rebreather on and off. Examination of lower extremities shows trace edema. AD OPERATIONS INTERN exam grossly intact. LABS: Labs show from yesterday serum creatinine was 2.2, sodium 138, potassium 4.8. This was on 11/27/2020. ASSESSMENT: 1. Chronic kidney disease secondary to nephrosclerosis NKF stage 4 renal function currently at baseline. 2. COVID-19 pneumonia with slight worsening of respiratory status, partly related to volume overload. 3. Acute hypoxic respiratory failure secondary to COVID pneumonia. 4. Hyponatremia associated with acute kidney injury now resolved. 5. Metabolic acidosis maintained on sodium bicarb. PLAN: Maintain on regular scheduled dose of IV Lasix for now. Repeat labs in a.m. MMODL / IJN: [id number] /
--- NOTE | 2020-11-28 15:36 | P.PN ---
Subjective From recurrence: Pleasant 75-year-old patient of Dr. Horta. Chronic stable medical conditions include diabetes, hypothyroid, gout, peripheral neuropathy, diabetic retinopathy, chronic kidney disease, coronary artery disease with a history of bypass and AICD. Patient's is by the bedside who provides most of the history. Patient about 7 days ago on Friday every couple of days before that has started feeling a little bit tired. Motor worse on Friday. Also developed a fever. Decreased appetite diet. Had some diarrhea. Body aches. No loss of smell or taste. Patient did have COVID rapid tested on that was negative. Now becomes short of breath with minimal exertion tired rundown. Patient is tested positive for COVID 19. Initial pulse ox on room air was 98% and then did go down to 94% on 2 L. Admitted with acute bilateral COVID 19 pneumonitis, acute hypoxic respiratory failure, acute myocarditis. Placed on dexamethasone Lovenox. IV Remdesivir Today: More Short of breath. Tired. On 15 L of nasal cannula. Slight cough. Eating about 35%. Subjective: 11/28/2020 This is a pleasant 75 years old male who presents with bilateral Covid pneumonia, hypoxia on the top of his chronic kidney disease stage IV. Patient today states that his breathing somewhat little bit better with little cough but no chest pain or diarrhea. On examination his chest looks clear. However he still is 15 L/m of oxygen to keep saturation above 90%. Patient labs from today and yesterday are reviewed, creatinine at baseline of 2.2, glucose is elevated more than 200, LDH was elevated at 687 and C-reactive protein at 1.2. D-dimer was elevated at 30.3. Patient currently on dexamethasone, vitamin C, D and zinc. He is on Lovenox 40 mg twice a day. Lasix is admitted today by form stripper as 40 mg IV twice daily. Also patient is status post remdesivir. Objective - Vital Signs Vital signs: Vital Signs Temp 98.2 F 11/28/20 14:00 Pulse 67 11/28/20 14:00 Resp 22 11/28/20 14:00 BP 132/73 11/28/20 14:00 Pulse Ox 92 L 11/28/20 14:00 Intake & Output 04/19/21 04/20/21 04/20/21 18:59 06:59 18:59 Intake Total 300 Output Total 900 850 Balance -900 -550 Intake: Oral 300 Output: Urine 900 850 Other: Voiding Method Urinal Urinal Urinal Diaper Diaper Diaper # Voids 3 - Exam GENERAL: The patient is alert and oriented x3, not in any acute distress. Well developed, well nourished. HEENT: Pupils are round and equally reacting to light. EOMI. No scleral icterus. No conjunctival pallor. Normocephalic, atraumatic. No pharyngeal erythema. No thyromegaly. CARDIOVASCULAR: S1 and S2 present. No murmurs, rubs, or gallops. PULMONARY: Chest is clear to auscultation, no wheezing or crackles. ABDOMEN: Soft, nontender, nondistended, normoactive bowel sounds. No palpable organomegaly. MUSCULOSKELETAL: No joint swelling or deformity. EXTREMITIES: No cyanosis, clubbing, or pedal edema. NEUROLOGICAL: Gross neurological examination did not reveal any focal deficits. SKIN: No rashes. no petechiae. - Labs CBC & Chem 7: 11/27/20 06:10 11/27/20 06:10 Labs: Abnormal Lab Results - Last 24 Hours (Table) 11/27/20 11/27/20 11/28/20 Range/Units 16:26 19:59 06:55 POC Glucose (mg/dL) 339 H 358 H 222 H (75-99) mg/dL Hemoglobin A1c (4.0-6.0) % Procalcitonin (0.02-0.09) ng/mL 11/28/20 11/28/20 11/28/20 Range/Units 07:17 07:17 11:29 POC Glucose (mg/dL) 281 H (75-99) mg/dL Hemoglobin A1c 7.5 H (4.0-6.0) % Procalcitonin 0.10 H (0.02-0.09) ng/mL Assessment and Plan Assessment: -Bilateral, pneumonia -Acute hypoxic respiratory failure -Increasing inflammatory marker -Chronic kidney disease, stage IV -Type 2 diabetes mellitus -History of coronary artery disease, status post CABG and AICD -Hypothyroidism Plan: this is a pleasant 75 years old male who presents with, pneumonia, continue with steroids, Lovenox, multiple vitamins including vitamin C, D and zinc. Continue with Lasix per nephrology team recommendation. Patient is also closely by multiple consultants including pulmonary, nephrology and ID team Labs and medication were reviewed.. Continue same treatment. Continue with symptomatic treatment. Resume home medication. Monitor lytes and vitals. DVT and GI prophylaxis. Further recommendationsas per clinical course of the patient DVT prophylaxis: Subcutaneous Lovenox GI Prophylaxis: Pepcid PT/OT: Pending Prognosis is guarded
[2020-11-28 16:21] LABS: Glucose,Whole Blood 419 mg/dL (75-99)
[2020-11-28] MEDS: allopurinoL 100 MG TAB PO SCH (16:44)
--- NOTE | 2020-11-28 16:58 | P.PN ---
Subjective Progress Note Date: 11/28/20 Principal diagnosis: Acute COVID-19 pneumonia Acute COVID-19 pneumonia 75-year-old male patient, started having symptoms approximately a week ago when he started feeling a bit tired and fatigued. He subsequently developed fever and diminished appetite and some diarrhea. The patient tested positive for COVID 19 infection 4 days ago and this was again confirmed on 11/19/2020. The patient came into the emergency with weakness and shortness of breath. The patient is currently on 2 L of oxygen by nasal cannula. He is known to have CAD, previous bypass, aortic, chronic disease, diabetes mellitus and diabetic retinopathy and neuropathy and hypothyroidism and gout. Lactate was 0.7, there d-dimer was 0.6, white cell count was at 3.2 with a lymphopenia, creatinine was at 3.37 with a mean of 61. He is also on multivitamins. Chest x-ray showing diffuse bilateral pulmonary infiltrates. On today's evaluation of 4 [phone] the patient is currently on oxygen at 4 L per minute. The patient is quite comfortable. Pulse ox is around 95% and FiO2 can be obviously weaned off. The patient is being seen for a follow-up. The patient is currently being treated with Decadron 6 mg IV every 24 hours. The patient is also on Lovenox 40 mg subcu daily and the patient is also on Remdesivir day #2. No follow-up chest x-rays available from today. The rest of the labs are showing chronic kidney disease with a creatinine of 2.7. The patient has chronic metabolic acidosis which is of a non-anion gap type. On 11/22/2020 patient seen in follow-up. Is comfortable, still desat easily, feels tired, but no acute distress, today's labs have been reviewed, d-dimer 0.69, CRP is 35.6, no LDH. Has not had a chest x-ray, he is currently on 7 L, his pulse ox is 89%, no fever, remains on Remdesivir, today is day 3 of treatment. On 11/23/2020 patient is pretty stable, he remains on 5 L of oxygen, her pulse ox 89-90%, he is breathing comfortably, no worsening dyspnea, his 0.9, saline at 60 per hour, patient completed Remdesivir treatment, he remains on steroids, and prophylactic Lovenox. No worsening dyspnea, today's labs have been reviewed, d- dimer is 1.90, renal profile is slightly improved from yesterday, patient continues on IV fluids, no nausea vomiting or diarrhea, CRP is trending down, LDH with today is pending. On 11/25/2000 patient seen in follow-up on medical surgical floor, he is sitting up in the chair, appears to be breathing comfortably although his oxygen requirements have increased, and is currently on 15 L per high flow nasal cannula up from 12 L from yesterday, he denies any worsening dyspnea, lung sounds reveal diffuse bilateral crackles, no chest discomfort, no signs of any respiratory distress. No cough, no wheezing, today's chest x-ray shows bilateral mid to lower lung increased opacities, findings consistent with COVID- 19 pneumonia, the findings are stable in appearance. Follow-up inflammatory markers showed d-dimer of 19.16, LDH is up to 2028, CRP is 2.4. Patient has completed his Remdesivir course, she remains on daily dose of Decadron 6 mg, and Lovenox 30 mg daily, his renal function appears to be relatively stable, his bun is 64, and creatinine is 2.12 On 11/26/2020 patient seen in follow-up on medical surgical floor, he sitting up in the chair, he is breathing comfortably, he is currently down to 13 L, and his pulse ox is 90-94%, his been afebrile, overall she looks stable, he does not appear to be in any acute distress, he is a d-dimer has trended up, and on today's labs it is up to 30.3, and his Lovenox dose will be adjusted. Today's inflammatory markers are improving. He remains on daily dose IV Decadron 6 mg daily, Lovenox, multivitamins, and his IV fluids are infusing at a rate of 60 ML per hour, no new chest x-ray today, his kidney function shows slight improvement On 11/27/2000 patient seen in follow-up on medical surgical floor, he remains on high flow oxygen 15 L, and the nonrebreather mask, he does desat when he removes his nonrebreather mask down to 86% however he denies any dyspnea, he does not feel stressed at all, and looks very comfortable, he sitting up in the recliner, awake and alert, oriented 3, he is afebrile, hemodynamically has been stable, he has no specific complaints, and his today's chest x-ray shows cardiomegaly and low lung volumes with bilateral mid to lower lung reticular and confluent opacities consistent with COVID-19 pneumonia with no change from previousexam. Today's labs have been reviewed, white blood cell count is 5.45, hemoglobin is 9.3, no d-dimer today, but yesterday's d-dimer was quite elevated at 30.3, and his Lovenox dose was adjusted and increased to 40 mg twice a day, his electrolyte panel shows CO2 of 28.1, but prostate electrolytes are within normal limits, B1 is 84, creatinine is 2.2, his LDH is down to 687, improving, his CRP is 1.2 on today's labs. He continues on Decadron 6 mg daily, he is on Lovenox 40 mg twice a day, and he is receiving IV hydration at 60 ML per hour, nephrology is following On 11/28/2020 patient seen in follow-up on medical surgical floor, he is resting comfortably in bed, he is currently on 15 L high flow and 100% nonrebreather, he looks quite comfortable, he denies any shortness of breath, minimal cough, he is breathing comfortably, his pro-calcitonin level was low, his inflammatory markers were improving, his d-dimer was elevated on 11/26/2020 patient is on 40 mg of Lovenox twice daily, Lasix is at 40 mg every 12 hours patient is in negative fluid balance. No new chest x-ray today Objective - Vital Signs Vital signs: Vital Signs Temp 98.2 F 11/28/20 14:00 Pulse 67 11/28/20 14:00 Resp 22 11/28/20 14:00 BP 132/73 11/28/20 14:00 Pulse Ox 95 11/28/20 16:16 Intake & Output 11/27/20 11/28/20 11/28/20 18:59 06:59 18:59 Intake Total 300 Output Total 900 850 700 Balance -900 550 700 Intake: Oral 300 Output: Urine 900 850 700 Other: Voiding Method Urinal Urinal Urinal Diaper Diaper Diaper # Voids 3 - Exam GENERAL EXAM: Alert, pleasant 75-year-old white male, currently on 15 l/min and 100 % NRB, with pulse ox of 95% comfortable in no apparent distress. HEAD: Normocephalic/atraumatic. EYES: Normal reaction of pupils, equal size. Conjunctiva pink, sclera white. NOSE: Clear with pink turbinates. THROAT: No erythema or exudates. NECK: No masses, no JVD, no thyroid enlargement, no adenopathy. CHEST: No chest wall deformity. Symmetrical expansion. LUNGS: Equal air entry with bilateral crackles CVS: Regular rate and rhythm, normal S1 and S2, no gallops, no murmurs, no rubs ABDOMEN: Soft, nontender. No hepatosplenomegaly, normal bowel sounds, no guarding or rigidity. EXTREMITIES: No clubbing, no edema, no cyanosis, 2+ pulses and upper and lower extremities. MUSCULOSKELETAL: Muscle strength and tone normal. SPINE: No scoliosis or deformity SKIN: No rashes CENTRAL NERVOUS SYSTEM: Alert and oriented -3. No focal deficits, tone is normal in all 4 extremities. PSYCHIATRIC: Alert and oriented -3. Appropriate affect. Intact judgment and insight. - Labs CBC & Chem 7: 11/27/20 06:10 11/27/20 06:10 Labs: Abnormal Lab Results - Last 24 Hours (Table) 11/27/20 11/28/20 11/28/20 Range/Units 19:59 06:55 07:17 POC Glucose (mg/dL) 358 H 222 H (75-99) mg/dL Hemoglobin A1c 7.5 H (4.0-6.0) % Procalcitonin (0.02-0.09) ng/mL 11/28/20 11/28/20 11/28/20 Range/Units 07:17 11:29 16:19 POC Glucose (mg/dL) 281 H 419 H (75-99) mg/dL Hemoglobin A1c (4.0-6.0) % Procalcitonin 0.10 H (0.02-0.09) ng/mL Assessment and Plan Plan: 1 acute COVID 19 related pneumonia with secondary shortness of breath and hypoxic respiratory failure the patient's symptoms of generalized weakness and dehydration, currently on 4 L of oxygen by nasal cannula, patient was started on Remdesivir on 11/20/2020 2 acute hypoxic respiratory failure currently on 2 L of oxygen by nasal cannula 3 coronary artery disease with previous positive bypass surgery 4 mild troponin leak, could be related to Covid 19 infection 5 history of AICD placement 6 hypothyroidism 7 diabetes mellitus 8 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 I reviewed the nurse pr actitioner's note and agree with the documented findings and plan of care. Lung sounds are positive for bibasilar crackles. The findings and the impression was discussed with the patient. I attest to the documentation by the nurse practitioner. Time with Patient: Less than 30
[2020-11-28 20:09] LABS: Glucose,Whole Blood 424 mg/dL (75-99)
[2020-11-28] MEDS ORDERED: INSULIN DETEMIR (LEVEMIR) 100 UNIT/ML SYR SQ SCH ×2 (21:00)
[2020-11-28] MEDS: INSULIN DETEMIR (LEVEMIR) 100 UNIT/ML SYR SQ SCH (21:13)
[2020-11-28] MEDS: FUROSEMIDE 10 MG/ML 4 ML VIAL IV SCH (21:13)
[2020-11-28] MEDS: TAMSULOSIN 0.4 MG CAP.ER.24H PO SCH (21:14)
[2020-11-28] MEDS: ATORVASTATIN 40 MG TAB PO SCH (21:14)
[2020-11-29 00:45] LABS: C Reactive Protein 0.8 mg/dL (0.0-0.8)
--- NOTE | 2020-11-29 02:13 | PN ---
PROGRESS NOTE DATE OF SERVICE: 11/28/2020 REASON FOR FOLLOWUP: COVID-19 pneumonia. INTERVAL HISTORY: Patient is currently afebrile. The patient remains to be on a non-rebreather to maintain his sats. Denies having any chest pain. No worsening cough. No vomiting. No abdominal pain. No diarrhea. PHYSICAL EXAMINATION: Blood pressure is 132/73, pulse of 77, temperature 98.2. He is 92% on high-flow oxygen. General description is an elderly male lying in bed in no distress. Respiratory system: Unlabored breathing, decreased breath sounds in the base, with no wheeze. Heart S1, S2. Regular rate and rhythm. ABDOMEN: Soft, no tenderness. LABS: Procalcitonin 0.10. Hemoglobin is 7.5. DIAGNOSTIC IMPRESSION/PLAN: Patient with COVID-19 pneumonia in this patient has completed his Remdesivir therapy. Currently on dexamethasone, zinc, ascorbic acid and Lovenox to continue along with respiratory support and monitor clinical course closely. MMODL / IJN: [id number] /
[2020-11-29] MEDS: LEVOTHYROXINE 100 MCG TAB PO SCH (05:34)
[2020-11-29 06:57] LABS: Glucose,Whole Blood 305 mg/dL (75-99)
--- NOTE | 2020-11-29 07:40 | XR ---
EXAMINATION TYPE: XR chest 1V portable DATE OF EXAM: 11/29/2020 CLINICAL HISTORY: Difficulty breathing and covid progress study. TECHNIQUE: Single AP portable upright view of the chest is obtained. COMPARISON: Chest x-ray from 2 days earlier and older studies. FINDINGS: Post-CABG changes with mediastinal clips and sternal wires is redemonstrated. Cardiac silh ouette size remains stable and mildly enlarged with dual lead pacemaker/defibrillator. Background low lung volumes and Chronic parenchymal changes with bilateral mid to lower lung reticulonodular and co nfluent opacities is redemonstrated. Osseous structures remain intact. IMPRESSION: Cardiomegaly and low lung volumes with Bilateral mid to lower lung reticular and confluen t opacities redemonstrated, findings consistent with covid-19 infection. No significant change from m ost recent x-ray.
[2020-11-29] MEDS: ENOXAPARIN 40 MG/0.4 ML SYRINGE SQ SCH ×2 (07:58→19:55)
[2020-11-29] MEDS: INSULIN ASPART (NovoLOG) 100 UNIT/ML VIAL SQ SCH ×4 (07:59→21:36)
[2020-11-29] MEDS: REPAGLINIDE 1 MG TAB PO SCH ×2 (07:59→17:45)
[2020-11-29] MEDS: DEXAMETHASONE SOD PHOSPHATE 10 MG/ML 1 ML VIAL IV SCH (07:59)
[2020-11-29] MEDS: SODIUM BICARBONATE TAB 650 MG TAB PO SCH ×2 (07:59→19:55)
[2020-11-29] MEDS: ASCORBIC ACID 500 MG TAB PO SCH ×2 (08:00→19:55)
[2020-11-29] MEDS: CHOLECALCIFEROL 25 MCG (1000 IU) TABLET PO SCH (08:00)
[2020-11-29] MEDS: ZINC SULFATE 220 MG CAP PO SCH (08:01)
[2020-11-29] MEDS: FAMOTIDINE 20 MG TAB PO SCH (08:01)
[2020-11-29] MEDS: ASPIRIN 81 MG PO SCH (08:01)
--- NOTE | 2020-11-29 09:18 | US ---
EXAMINATION TYPE: US venous doppler duplex LE DATE OF EXAM: 11/29/2020 8:59 AM COMPARISON: NONE CLINICAL HISTORY: elevated d-dimer. Elevated D-dimer, Covid +, hypercoagulable state. SIDE PERFORMED: Bilateral TECHNIQUE: The lower extremity deep venous system is examined utilizing real time linear array sonog main with graded compression, doppler sonography and color-flow sonography. VESSELS IMAGED: Common Femoral Vein Deep Femoral Vein Greater Saphenous Vein * Femoral Vein Popliteal Vein Small Saphenous Vein * Proximal Calf Veins (* superficial vessels) Right Leg: Negative for DVT Left Leg: Negative for DVT Grayscale, color doppler, spectral doppler imaging performed of the deep veins of the bilateral lower extremities. There is normal flow, compressibility, vascular waveforms. IMPRESSION: No ultrasound evidence for acute DVT in either lower extremity.
[2020-11-29] MEDS: FUROSEMIDE 10 MG/ML 4 ML VIAL IV SCH (09:40)
[2020-11-29 09:53] LABS: HGB 10.5 g/dL (13.0-17.0); MCHC 32.8 g/dL (32.0-37.0); MCV 94.4 fL (80.0-97.0); Mean Platelet Volume 11.9 fL (9.5-12.2); Platelet Count 234 X 10*3/uL (140-440); RBC 3.39 X 10*6/uL (4.40-5.60); RDW 16.8 % (11.5-14.5)
[2020-11-29 10:17] LABS: Anion Gap 13.1 mmol/L (4.00-12.00); BUN/Creat Ratio 33.75 Ratio (12.00-20.00); Calcium 8.2 mg/dL (8.7-10.3); Carbon Dioxide 24.9 mmol/L (21.6-31.8); Magnesium 2.1 mg/dL (1.5-2.4); Non-African American GFR(CKD) 18.1 (60.0-200.0); Potassium 4.5 mmol/L (3.5-5.5)
[2020-11-29 10:53] LABS: Acanthocytes 2+; Basophils # (M) 0 X 10*3/uL (0.00-0.10); Eosinophils # (M) 0 X 10*3/uL (0.04-0.35); Lymphocytes # (M) 0.26 X 10*3/uL (0.90-5.00); Monocytes # (M) 0.35 X 10*3/uL (0.20-1.00); Myelocytes % 1 % (0-0); Neutrophils % (M) 92 %
[2020-11-29 11:48] LABS: Glucose,Whole Blood 436 mg/dL (75-99)
--- NOTE | 2020-11-29 12:20 | PN ---
PROGRESS NOTE The patient is seen for followup for acute kidney injury on top of chronic kidney disease. His renal function has been stable. He is currently maintained on diuretics. However, today his creatinine did go up to 3.2 mg/dL. Patient's respiratory status remains impaired requiring large amounts of oxygen, currently with a non-rebreather at 15 L high-flow with O2 sats at about 92%. PHYSICAL EXAMINATION: Blood pressure was 115/65 today, heart rate 68 per minute. He is afebrile. Examination shows no significant edema in the lower extremities. Abdomen is soft, nontender. 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 Lungs and heart are not examined. LABS: Labs show sodium 136, potassium 4.5, chloride 98, BUN 108, serum creatinine 3.2, hemoglobin 10.5 g/dL. ASSESSMENT: 1. Acute kidney injury currently worse over the last 24 hours. The patient is being diuresed. I will decrease his Lasix. His respiratory status remains quite impaired and maybe slightly worse and this is most likely secondary to his COVID pneumonia. 2. Acute hypoxic respiratory failure secondary to COVID pneumonia, maintained on 15 L nasal cannula as well as non-rebreather mask, maintained on steroids. 3. Anemia of chronic disease, maintained on Aranesp. 4. Metabolic acidosis currently on oral sodium bicarb. The dose of which can be further decreased. 5. Chronic kidney disease NKF stage 4. Baseline creatinine around 2 mg/dL. Etiology is nephrosclerosis. PLAN: Decrease Lasix to once a day. Decrease sodium bicarb. Repeat labs in a.m. Check a post-void bladder scan. Rule out urine retention. MMODL / IJN: [id number] /
[2020-11-29] MEDS: carvediloL 6.25 MG TAB PO SCH ×2 (12:27→17:45)
[2020-11-29] MEDS: FERROUS SULFATE 325 MG TAB PO SCH ×2 (12:28→17:45)
[2020-11-29] MEDS ORDERED: INSULIN DETEMIR (LEVEMIR) 100 UNIT/ML SYR SQ SCH (12:50)
[2020-11-29] MEDS: ALPRAZolam 0.25 MG TAB PO PRN ×2 (14:48→21:36)
--- NOTE | 2020-11-29 16:09 | PN ---
PROGRESS NOTE DATE OF SERVICE: 11/29/2020 REASON FOR FOLLOWUP: COVID-19 pneumonia. INTERVAL HISTORY: The patient is afebrile. The patient remains to be on non-rebreather high flow nasal cannula oxygen; however, denies any worsening chest pain, shortness of breath or cough. No abdominal pain or diarrhea. PHYSICAL EXAMINATION: Blood pressure 115/65, pulse of 68, temperature 97.4. He is 92% on a non-rebreather and high-flow nasal cannula oxygen. General description is an elderly male up in the chair in no distress. RESPIRATORY SYSTEM: Unlabored breathing, decreased intensity of breath sounds. No wheeze. HEART: S1, S2. Regular rate and rhythm. ABDOMEN: Soft, no tenderness. LABS: Hemoglobin is 10.5, white count 8.70. BUN of 108, creatinine 3.2. DIAGNOSTIC IMPRESSION AND PLAN: Patient with COVID-19 pneumonia. Patient has completed remdesivir therapy. He is currently on dexamethasone, Lovenox, zinc, ascorbic acid, along with respiratory support. Overall prognosis remains to be guarded. MMODL / IJN: [id number] /
--- NOTE | 2020-11-29 16:24 | P.PN ---
Subjective From recurrence: Pleasant 75-year-old patient of Dr. Horta. Chronic stable medical conditions include diabetes, hypothyroid, gout, peripheral neuropathy, diabetic retinopathy, chronic kidney disease, coronary artery disease with a history of bypass and AICD. Patient's is by the bedside who provides most of the history. Patient about 7 days ago on Friday every couple of days before that has started feeling a little bit tired. Motor worse on Friday. Also developed a fever. Decreased appetite diet. Had some diarrhea. Body aches. No loss of smell or taste. Patient did have COVID rapid tested on that was negative. Now becomes short of breath with minimal exertion tired rundown. Patient is tested positive for COVID 19. Initial pulse ox on room air was 98% and then did go down to 94% on 2 L. Admitted with acute bilateral COVID 19 pneumonitis, acute hypoxic respiratory failure, acute myocarditis. Placed on dexamethasone Lovenox. IV Remdesivir Today: More Short of breath. Tired. On 15 L of nasal cannula. Slight cough. Eating about 35%. Subjective: 11/28/2020 This is a pleasant 75 years old male who presents with bilateral Covid pneumonia, hypoxia on the top of his chronic kidney disease stage IV. Patient today states that his breathing somewhat little bit better with little cough but no chest pain or diarrhea. On examination his chest looks clear. However he still is 15 L/m of oxygen to keep saturation above 90%. Patient labs from today and yesterday are reviewed, creatinine at baseline of 2.2, glucose is elevated more than 200, LDH was elevated at 687 and C-reactive protein at 1.2. D-dimer was elevated at 30.3. Patient currently on dexamethasone, vitamin C, D and zinc. He is on Lovenox 40 mg twice a day. Lasix is admitted today by police inspector as 40 mg IV twice daily. Also patient is status post remdesivir. 11/29/2020 Patient still with dyspnea and tachypnea. Little cough. No chest pain. No diarrhea. Patient remains on 2 L/m of oxygen via high flow nasal cannula. Creatinine trended up to 3.2 and Lasix 40 mg twice a lower to once daily. Glucose more than 300 and Levemir 10 units been added. Check inflammatory markers tomorrow. Chest x-ray showing no change from previous. Patient remains on dexamethasone 6 mg daily and Lovenox 40 mg twice daily, also Lasix 40 mg once daily and multiple vitamins. Objective - Vital Signs Vital signs: Vital Signs Temp 97.1 F L 11/29/20 14:00 Pulse 61 11/29/20 14:00 Resp 16 11/29/20 14:00 BP 141/65 11/29/20 14:00 Pulse Ox 93 L 11/29/20 14:00 Intake & Output 11/28/20 11/29/20 11/29/20 18:59 06:59 18:59 Output Total 1150 2900 500 Balance -1150 -2900 -500 Output: Urine 1150 2900 500 Other: Voiding Method Urinal Urinal Diaper Diaper # Voids 1 - Exam GENERAL: The patient is alert and oriented x3, not in any acute distress. Well developed, well nourished. HEENT: Pupils are round and equally reacting to light. EOMI. No scleral icterus. No conjunctival pallor. Normocephalic, atraumatic. No pharyngeal erythema. No thyromegaly. CARDIOVASCULAR: S1 and S2 present. No murmurs, rubs, or gallops. PULMONARY: Chest is clear to auscultation, no wheezing or crackles. ABDOMEN: Soft, nontender, nondistended, normoactive bowel sounds. No palpable organomegaly. MUSCULOSKELETAL: No joint swelling or deformity. EXTREMITIES: No cyanosis, clubbing, or pedal edema. NEUROLOGICAL: Gross neurological examination did not reveal any focal deficits. SKIN: No rashes. no petechiae. - Labs CBC & Chem 7: 11/29/20 06:28 11/29/20 06:28 Labs: Abnormal Lab Results - Last 24 Hours (Table) 11/28/20 11/28/20 11/28/20 Range/Units 07:17 16:19 20:08 RBC (4.40-5.60) X 10*6/uL Hgb (13.0-17.0) g/dL Hct (39.6-50.0) % RDW (11.5-14.5) % Absolute Nucleated RBC (0.00-0.00) X 10*3/uL Myelocytes % (0-0) % Lymphocytes # (Manual) (0.90-5.00) X 10*3/uL Eosinophils # (Manual) (0.04-0.35) X 10*3/uL NRBC/100 WBC Diff (0.0-0.0) /100 WBCS D-Dimer (<0.60) mg/L FEU Anion Gap (4.00-12.00) mmol/L BUN (9.0-27.0) mg/dL Creatinine (0.6-1.5) mg/dL Est GFR (CKD-EPI)AfAm (60.0-200.0) Est GFR (CKD-EPI)NonAf (60.0-200.0) BUN/Creatinine Ratio (12.00-20.00) Ratio Glucose (70-110) mg/dL POC Glucose (mg/dL) 419 H 424 H (75-99) mg/dL Calcium (8.7-10.3) mg/dL Lactate Dehydrogenase 701 H (120-246) U/L 11/29/20 11/29/20 11/29/20 Range/Units 06:28 06:28 06:28 RBC 3.39 L (4.40-5.60) X 10*6/uL Hgb 10.5 L (13.0-17.0) g/dL Hct 32.0 L (39.6-50.0) % RDW 16.8 H (11.5-14.5) % Absolute Nucleated RBC 0.02 H (0.00-0.00) X 10*3/uL Myelocytes % 1 H (0-0) % Lymphocytes # (Manual) 0.26 L (0.90-5.00) X 10*3/uL Eosinophils # (Manual) 0 L (0.04-0.35) X 10*3/uL NRBC/100 WBC Diff 0.2 H (0.0-0.0) /100 WBCS D-Dimer 16.02 H (<0.60) mg/L FEU Anion Gap 13.10 H (4.00-12.00) mmol/L BUN 108.0 H* (9.0-27.0) mg/dL Creatinine 3.2 H (0.6-1.5) mg/dL Est GFR (CKD-EPI)AfAm 21.0 L (60.0-200.0) Est GFR (CKD-EPI)NonAf 18.1 L (60.0-200.0) BUN/Creatinine Ratio 33.75 H (12.00-20.00) Ratio Glucose 325 H (70-110) mg/dL POC Glucose (mg/dL) (75-99) mg/dL Calcium 8.2 L (8.7-10.3) mg/dL Lactate Dehydrogenase (120-246) U/L 11/29/20 11/29/20 Range/Units 06:55 11:46 RBC (4.40-5.60) X 10*6/uL Hgb (13.0-17.0) g/dL Hct (39.6-50.0) % RDW (11.5-14.5) % Absolute Nucleated RBC (0.00-0.00) X 10*3/uL Myelocytes % (0-0) % Lymphocytes # (Manual) (0.90-5.00) X 10*3/uL Eosinophils # (Manual) (0.04-0.35) X 10*3/uL NRBC/100 WBC Diff (0.0-0.0) /100 WBCS D-Dimer (<0.60) mg/L FEU Anion Gap (4.00-12.00) mmol/L BUN (9.0-27.0) mg/dL Creatinine (0.6-1.5) mg/dL Est GFR (CKD-EPI)AfAm (60.0-200.0) Est GFR (CKD-EPI)NonAf (60.0-200.0) BUN/Creatinine Ratio (12.00-20.00) Ratio Glucose (70-110) mg/dL POC Glucose (mg/dL) 305 H 436 H (75-99) mg/dL Calcium (8.7-10.3) mg/dL Lactate Dehydrogenase (120-246) U/L Assessment and Plan Assessment: -Bilateral, pneumonia -Acute hypoxic respiratory failure -Increasing inflammatory marker -Acute kidney injury secondary to Lasix -Chronic kidney disease, stage IV -Type 2 diabetes mellitus -History of coronary artery disease, status post CABG and AICD -Hypothyroidism Plan: this is a pleasant 75 years old male who presents with, pneumonia, continue with steroids, Lovenox, multiple vitamins including vitamin C, D and zinc. Continue with Lasix per nephrology team recommendation. Patient is also closely by multiple consultants including pulmonary, nephrology and ID team Labs and medication were reviewed.. Continue same treatment. Continue with symptomatic treatment. Resume home medication. Monitor lytes and vitals. DVT and GI prophylaxis. Further recommendationsas per clinical course of the patient DVT prophylaxis: Subcutaneous Lovenox GI Prophylaxis: Pepcid PT/OT: Pending Prognosis is guarded
--- NOTE | 2020-11-29 16:27 | P.PN ---
Subjective Progress Note Date: 11/29/20 Principal diagnosis: Acute COVID-19 pneumonia Acute COVID-19 pneumonia 75-year-old male patient, started having symptoms approximately a week ago when he started feeling a bit tired and fatigued. He subsequently developed fever and diminished appetite and some diarrhea. The patient tested positive for COVID 19 infection 4 days ago and this was again confirmed on 11/19/2020. The patient came into the emergency with weakness and shortness of breath. The patient is currently on 2 L of oxygen by nasal cannula. He is known to have CAD, previous bypass, aortic, chronic disease, diabetes mellitus and diabetic retinopathy and neuropathy and hypothyroidism and gout. Lactate was 0.7, there d-dimer was 0.6, white cell count was at 3.2 with a lymphopenia, creatinine was at 3.37 with a mean of 61. He is also on multivitamins. Chest x-ray showing diffuse bilateral pulmonary infiltrates. On today's evaluation of [phone] the patient is currently on oxygen at 4 L per minute. The patient is quite comfortable. Pulse ox is around 95% and FiO2 can be obviously weaned off. The patient is being seen for a follow-up. The patient is currently being treated with Decadron 6 mg IV every 24 hours. The patient is also on Lovenox 40 mg subcu daily and the patient is also on Remdesivir day #2. No follow-up chest x-rays available from today. The rest of the labs are showing chronic kidney disease with a creatinine of 2.7. The patient has chronic metabolic acidosis which is of a non-anion gap type. On 11/22/2020 patient seen in follow-up. Is comfortable, still desat easily, feels tired, but no acute distress, today's labs have been reviewed, d-dimer 0.69, CRP is 35.6, no LDH. Has not had a chest x-ray, he is currently on 7 L, his pulse ox is 89%, no fever, remains on Remdesivir, today is day 3 of treatment. On 11/23/2020 patient is pretty stable, he remains on 5 L of oxygen, her pulse ox 89-90%, he is breathing comfortably, no worsening dyspnea, his 0.9, saline at 60 per hour, patient completed Remdesivir treatment, he remains on steroids, and prophylactic Lovenox. No worsening dyspnea, today's labs have been reviewed, d- dimer is 1.90, renal profile is slightly improved from yesterday, patient continues on IV fluids, no nausea vomiting or diarrhea, CRP is trending down, LDH with today is pending. On 11/25/2000 patient seen in follow-up on medical surgical floor, he is sitting up in the chair, appears to be breathing comfortably although his oxygen requirements have increased, and is currently on 15 L per high flow nasal cannula up from 12 L from yesterday, he denies any worsening dyspnea, lung sounds reveal diffuse bilateral crackles, no chest discomfort, no signs of any respiratory distress. No cough, no wheezing, today's chest x-ray shows bilateral mid to lower lung increased opacities, findings consistent with COVID- 19 pneumonia, the findings are stable in appearance. Follow-up inflammatory markers showed d-dimer of 19.16, LDH is up to 2028, CRP is 2.4. Patient has completed his Remdesivir course, she remains on daily dose of Decadron 6 mg, and Lovenox 30 mg daily, his renal function appears to be relatively stable, his bun is 64, and creatinine is 2.12 On 11/26/2020 patient seen in follow-up on medical surgical floor, he sitting up in the chair, he is breathing comfortably, he is currently down to 13 L, and his pulse ox is 90-94%, his been afebrile, overall she looks stable, he does not appear to be in any acute distress, he is a d-dimer has trended up, and on today's labs it is up to 30.3, and his Lovenox dose will be adjusted. Today's inflammatory markers are improving. He remains on daily dose IV Decadron 6 mg daily, Lovenox, multivitamins, and his IV fluids are infusing at a rate of 60 ML per hour, no new chest x-ray today, his kidney function shows slight improvement On 11/27/2000 patient seen in follow-up on medical surgical floor, he remains on high flow oxygen 15 L, and the nonrebreather mask, he does desat when he removes his nonrebreather mask down to 86% however he denies any dyspnea, he does not feel stressed at all, and looks very comfortable, he sitting up in the recliner, awake and alert, oriented 3, he is afebrile, hemodynamically has been stable, he has no specific complaints, and his today's chest x-ray shows cardiomegaly and low lung volumes with bilateral mid to lower lung reticular and confluent opacities consistent with COVID-19 pneumonia with no change from previousexam. Today's labs have been reviewed, white blood cell count is 5.45, hemoglobin is 9.3, no d-dimer today, but yesterday's d-dimer was quite elevated at 30.3, and his Lovenox dose was adjusted and increased to 40 mg twice a day, his electrolyte panel shows CO2 of 28.1, but prostate electrolytes are within normal limits, B1 is 84, creatinine is 2.2, his LDH is down to 687, improving, his CRP is 1.2 on today's labs. He continues on Decadron 6 mg daily, he is on Lovenox 40 mg twice a day, and he is receiving IV hydration at 60 ML per hour, nephrology is following On 11/28/2020 patient seen in follow-up on medical surgical floor, he is resting comfortably in bed, he is currently on 15 L high flow and 100% nonrebreather, he looks quite comfortable, he denies any shortness of breath, minimal cough, he is breathing comfortably, his pro-calcitonin level was low, his inflammatory markers were improving, his d-dimer was elevated on 11/26/2020 patient is on 40 mg of Lovenox twice daily, Lasix is at 40 mg every 12 hours patient is in negative fluid balance. No new chest x-ray today On 11/29/2000 patient seen in follow-up on medical surgical floor, is currently on 15 L per high flow nasal cannula, and 100 nonrebreather mask, and he is satting about 93%, he does not feel short of breath, he seems to be breathing very comfortably, he is afebrile, hemodynamically stable, his chest x-ray today shows low lung volumes with bilateral mid to lower lung reticular and confluent opacities consistent with COVID-19 pneumonia. Findings are similar to his previous chest x-ray, lower extremity Dopplers were completed and he was negative for DVT. His d-dimer is trending down, and is down to 16.0. The rest of his lab work has been reviewed, showing white blood cell count of 8.7, hemoglobin of 10.5, sodium is 136, potassium is 4.5, chloride is 98, BUN of 108, and creatinine is 3.2, his calcitonin level was negative at 0.10, his inflammatory markers were improving since admission. No nausea vomiting or diarrhea, and patient continues on daily dose of IV Decadron 6 mg, continues on Lovenox 40 mg twice daily, she was given a dose of Lasix yesterday and he was started on maintenance dose of IV Lasix Objective - Vital Signs Vital signs: Vital Signs Temp 97.1 F L 11/29/20 14:00 Pulse 61 11/29/20 14:00 Resp 16 11/29/20 14:00 BP 141/65 11/29/20 14:00 Pulse Ox 93 L 11/29/20 14:00 Intake & Output 11/28/20 11/29/20 11/29/20 18:59 06:59 18:59 Output Total 1150 2900 500 Balance -1150 -2900 -500 Output: Urine 1150 2900 500 Other: Voiding Method Urinal Urinal Diaper Diaper # Voids 1 - Exam GENERAL EXAM: Alert, pleasant 75-year-old white male, currently on 15 l/min and 100 % NRB, with pulse ox of 93% comfortable in no apparent distress. HEAD: Normocephalic/atraumatic. EYES: Normal reaction of pupils, equal size. Conjunctiva pink, sclera white. NOSE: Clear with pink turbinates. THROAT: No erythema or exudates. NECK: No masses, no JVD, no thyroid enlargement, no adenopathy. CHEST: No chest wall deformity. Symmetrical expansion. LUNGS: Equal air entry with bilateral crackles CVS: Regular rate and rhythm, normal S1 and S2, no gallops, no murmurs, no rubs ABDOMEN: Soft, nontender. No hepatosplenomegaly, normal bowel sounds, no guarding or rigidity. EXTREMITIES: No clubbing, no edema, no cyanosis, 2+ pulses and upper and lower extremities. MUSCULOSKELETAL: Muscle strength and tone normal. SPINE: No scoliosis or deformity SKIN: No rashes CENTRAL NERVOUS SYSTEM: Alert and oriented -3. No focal deficits, tone is n ormal in all 4 extremities. PSYCHIATRIC: Alert and oriented -3. Appropriate affect. Intact judgment and insight. - Labs CBC & Chem 7: 11/29/20 06:28 11/29/20 06:28 Labs: Abnormal Lab Results - Last 24 Hours (Table) 11/28/20 11/28/20 11/28/20 Range/Units 07:17 16:19 20:08 RBC (4.40-5.60) X 10*6/uL Hgb (13.0-17.0) g/dL Hct (39.6-50.0) % RDW (11.5-14.5) % Absolute Nucleated RBC (0.00-0.00) X 10*3/uL Myelocytes % (0-0) % Lymphocytes # (Manual) (0.90-5.00) X 10*3/uL Eosinophils # (Manual) (0.04-0.35) X 10*3/uL NRBC/100 WBC Diff (0.0-0.0) /100 WBCS D-Dimer (<0.60) mg/L FEU Anion Gap (4.00-12.00) mmol/L BUN (9.0-27.0) mg/dL Creatinine (0.6-1.5) mg/dL Est GFR (CKD-EPI)AfAm (60.0-200.0) Est GFR (CKD-EPI)NonAf (60.0-200.0) BUN/Creatinine Ratio (12.00-20.00) Ratio Glucose (70-110) mg/dL POC Glucose (mg/dL) 419 H 424 H (75-99) mg/dL Calcium (8.7-10.3) mg/dL Lactate Dehydrogenase 701 H (120-246) U/L 11/29/20 11/29/20 11/29/20 Range/Units 06:28 06:28 06:28 RBC 3.39 L (4.40-5.60) X 10*6/uL Hgb 10.5 L (13.0-17.0) g/dL Hct 32.0 L (39.6-50.0) % RDW 16.8 H (11.5-14.5) % Absolute Nucleated RBC 0.02 H (0.00-0.00) X 10*3/uL Myelocytes % 1 H (0-0) % Lymphocytes # (Manual) 0.26 L (0.90-5.00) X 10*3/uL Eosinophils # (Manual) 0 L (0.04-0.35) X 10*3/uL NRBC/100 WBC Diff 0.2 H (0.0-0.0) /100 WBCS D-Dimer 16.02 H (<0.60) mg/L FEU Anion Gap 13.10 H (4.00-12.00) mmol/L BUN 108.0 H* (9.0-27.0) mg/dL Creatinine 3.2 H (0.6-1.5) mg/dL Est GFR (CKD-EPI)AfAm 21.0 L (60.0-200.0) Est GFR (CKD-EPI)NonAf 18.1 L (60.0-200.0) BUN/Creatinine Ratio 33.75 H (12.00-20.00) Ratio Glucose 325 H (70-110) mg/dL POC Glucose (mg/dL) (75-99) mg/dL Calcium 8.2 L (8.7-10.3) mg/dL Lactate Dehydrogenase (120-246) U/L 11/29/20 11/29/20 Range/Units 06:55 11:46 RBC (4.40-5.60) X 10*6/uL Hgb (13.0-17.0) g/dL Hct (39.6-50.0) % RDW (11.5-14.5) % Absolute Nucleated RBC (0.00-0.00) X 10*3/uL Myelocytes % (0-0) % Lymphocytes # (Manual) (0.90-5.00) X 10*3/uL Eosinophils # (Manual) (0.04-0.35) X 10*3/uL NRBC/100 WBC Diff (0.0-0.0) /100 WBCS D-Dimer (<0.60) mg/L FEU Anion Gap (4.00-12.00) mmol/L BUN (9.0-27.0) mg/dL Creatinine (0.6-1.5) mg/dL Est GFR (CKD-EPI)AfAm (60.0-200.0) Est GFR (CKD-EPI)NonAf (60.0-200.0) BUN/Creatinine Ratio (12.00-20.00) Ratio Glucose (70-110) mg/dL POC Glucose (mg/dL) 305 H 436 H (75-99) mg/dL Calcium (8.7-10.3) mg/dL Lactate Dehydrogenase (120-246) U/L Assessment and Plan Plan: 1 acute COVID 19 related pneumonia with secondary shortness of breath and hypoxic respiratory failure the patient's symptoms of generalized weakness and dehydration, currently on 4 L of oxygen by nasal cannula, patient was started on Remdesivir on 11/20/2020 2 acute hypoxic respiratory failure currently on 2 L of oxygen by nasal cannula 3 coronary artery disease with previous positive bypass surgery 4 mild troponin leak, could be related to Covid 19 infection 5 history of AICD placement 6 hypothyroidism 7 diabetes mellitus 8 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 I reviewed the nurse practitioner's note and agree with the documented findings and plan of care. Lung sounds are positive for bibasilar crackles. The findings and the impression was discussed with the patient. I attest to the documentation by the nurse practitioner. Time with Patient: Less than 30
[2020-11-29 16:47] LABS: Glucose,Whole Blood 444 mg/dL (75-99)
[2020-11-29] MEDS: allopurinoL 100 MG TAB PO SCH (17:45)
[2020-11-29] MEDS ORDERED: TOCILIZUMAB 720 MG in SODIUM CHLORIDE 0.9% 64 ML IV ONE (18:00)
[2020-11-29] MEDS: ATORVASTATIN 40 MG TAB PO SCH (19:55)
[2020-11-29] MEDS: TAMSULOSIN 0.4 MG CAP.ER.24H PO SCH (19:55)
[2020-11-29 21:11] LABS: Glucose,Whole Blood 392 mg/dL (75-99)
[2020-11-29] MEDS: INSULIN DETEMIR (LEVEMIR) 100 UNIT/ML SYR SQ SCH (21:36)
[2020-11-30] MEDS: LEVOTHYROXINE 100 MCG TAB PO SCH (05:23)
[2020-11-30 06:55] LABS: Glucose,Whole Blood 376 mg/dL (75-99)
[2020-11-30] MEDS ORDERED: INSULIN DETEMIR (LEVEMIR) 100 UNIT/ML SYR SQ SCH (07:00)
[2020-11-30] MEDS: ENOXAPARIN 40 MG/0.4 ML SYRINGE SQ SCH ×2 (07:52→20:19)
[2020-11-30] MEDS: INSULIN ASPART (NovoLOG) 100 UNIT/ML VIAL SQ SCH ×4 (07:52→20:19)
[2020-11-30] MEDS: DEXAMETHASONE SOD PHOSPHATE 10 MG/ML 1 ML VIAL IV SCH (07:53)
[2020-11-30] MEDS: REPAGLINIDE 1 MG TAB PO SCH ×2 (07:53→17:39)
[2020-11-30] MEDS: CHOLECALCIFEROL 25 MCG (1000 IU) TABLET PO SCH (07:54)
[2020-11-30] MEDS: ASPIRIN 81 MG PO SCH (07:54)
[2020-11-30] MEDS: ZINC SULFATE 220 MG CAP PO SCH (07:54)
[2020-11-30] MEDS: SODIUM BICARBONATE TAB 650 MG TAB PO SCH (07:54)
[2020-11-30] MEDS: ASCORBIC ACID 500 MG TAB PO SCH ×2 (07:54→20:18)
[2020-11-30] MEDS: FAMOTIDINE 20 MG TAB PO SCH (07:55)
[2020-11-30] MEDS ORDERED: FUROSEMIDE 10 MG/ML 4 ML VIAL IV SCH (09:00)
[2020-11-30 09:22] LABS: Basophils # (A) 0.02 X 10*3/uL (0.00-0.10); Basophils % (A) 0.2 %; Eosinophils # (A) 0 X 10*3/uL (0.04-0.35); Eosinophils % (A) 0 %; HCT 31.8 % (39.6-50.0); HGB 10.3 g/dL (13.0-17.0); Lymphocytes # (A) 0.27 X 10*3/uL (0.90-5.00); Lymphocytes % (A) 2.7 %; MCH 30.8 pg (27.0-32.0); MCHC 32.4 g/dL (32.0-37.0); MCV 95.2 fL (80.0-97.0); Mean Platelet Volume 11.8 fL (9.5-12.2); Monocytes # (A) 0.47 X 10*3/uL (0.20-1.00); Monocytes % (A) 4.6 %; Neutrophils # (A) 8.87 X 10*3/uL (1.80-7.70); Neutrophils % (A) 87.8 %; Platelet Count 202 X 10*3/uL (140-440); RBC 3.34 X 10*6/uL (4.40-5.60); RDW 16.7 % (11.5-14.5); WBC 10.11 X 10*3/uL (4.50-10.00)
[2020-11-30 11:28] LABS: African American GFR (CKD) 25.7 (60.0-200.0); BUN/Creat Ratio 42.59 Ratio (12.00-20.00); C Reactive Protein 0.5 mg/dL (0.0-0.8); Calcium 7.6 mg/dL (8.7-10.3); Non-African American GFR(CKD) 22.2 (60.0-200.0); Potassium 4.2 mmol/L (3.5-5.5)
[2020-11-30 11:33] LABS: Glucose,Whole Blood 257 mg/dL (75-99)
[2020-11-30] MEDS: carvediloL 6.25 MG TAB PO SCH ×2 (11:55→17:35)
[2020-11-30] MEDS: FERROUS SULFATE 325 MG TAB PO SCH ×2 (11:55→17:36)
--- NOTE | 2020-11-30 14:19 | P.PN ---
Subjective From recurrence: Pleasant 75-year-old patient of Dr. Horta. Chronic stable medical conditions include diabetes, hypothyroid, gout, peripheral neuropathy, diabetic retinopathy, chronic kidney disease, coronary artery disease with a history of bypass and AICD. Patient's is by the bedside who provides most of the history. Patient about 7 days ago on Friday every couple of days before that has started feeling a little bit tired. Motor worse on Friday. Also developed a fever. Decreased appetite diet. Had some diarrhea. Body aches. No loss of smell or taste. Patient did have COVID rapid tested on that was negative. Now becomes short of breath with minimal exertion tired rundown. Patient is tested positive for COVID 19. Initial pulse ox on room air was 98% and then did go down to 94% on 2 L. Admitted with acute bilateral COVID 19 pneumonitis, acute hypoxic respiratory failure, acute myocarditis. Placed on dexamethasone Lovenox. IV Remdesivir Today: More Short of breath. Tired. On 15 L of nasal cannula. Slight cough. Eating about 35%. Subjective: 11/28/2020 This is a pleasant 75 years old male who presents with bilateral Covid pneumonia, hypoxia on the top of his chronic kidney disease stage IV. Patient today states that his breathing somewhat little bit better with little cough but no chest pain or diarrhea. On examination his chest looks clear. However he still is 15 L/m of oxygen to keep saturation above 90%. Patient labs from today and yesterday are reviewed, creatinine at baseline of 2.2, glucose is elevated more than 200, LDH was elevated at 687 and C-reactive protein at 1.2. D-dimer was elevated at 30.3. Patient currently on dexamethasone, vitamin C, D and zinc. He is on Lovenox 40 mg twice a day. Lasix is admitted today by dye line operator as 40 mg IV twice daily. Also patient is status post remdesivir. 11/29/2020 Patient still with dyspnea and tachypnea. Little cough. No chest pain. No diarrhea. Patient remains on 2 L/m of oxygen via high flow nasal cannula. Creatinine trended up to 3.2 and Lasix 40 mg twice a lower to once daily. Glucose more than 300 and Levemir 10 units been added. Check inflammatory markers tomorrow. Chest x-ray showing no change from previous. Patient remains on dexamethasone 6 mg daily and Lovenox 40 mg twice daily, also Lasix 40 mg once daily and multiple vitamins. 11/30/2020 Patient is still with some respiratory distress. But no significant worsening. He has little cuff. This still needs 15 L/m of oxygen via high flow nasal cannula to keep his saturation monitoring. Labs showing improvement creatinine 2.7, glucose better at 200s after increasing Levemir 2013 months twice a day, LDH is improving 545 and C-reactive protein is up at 11.2 Patient remains on dexamethasone, Lasix 40 mg daily was discontinued yesterday. Patient continue on Lovenox 40 mg twice daily, multiple vitamin and he received 1 dose of tocilizumab on 11/29. Prognosis is guarded and we'll keep monitoring Objective - Vital Signs Vital signs: Vital Signs Temp 98.3 F 11/30/20 13:55 Pulse 69 11/30/20 13:55 Resp 18 11/30/20 13:55 BP 129/68 11/30/20 13:55 Pulse Ox 92 L 11/30/20 13:55 Intake & Output 11/29/20 11/30/20 11/30/20 18:59 06:59 18:59 Intake Total 600 Output Total 1300 500 Balance -1300 100 Intake: Oral 600 Output: Urine 1300 500 Other: Voiding Method Urinal External Catheter Diaper # Voids 2 - Exam GENERAL: The patient is alert and oriented x3, not in any acute distress. Well developed, well nourished. HEENT: Pupils are round and equally reacting to light. EOMI. No scleral icterus. No conjunctival pallor. Normocephalic, atraumatic. No pharyngeal erythema. No thyromegaly. CARDIOVASCULAR: S1 and S2 present. No murmurs, rubs, or gallops. PULMONARY: Chest is clear to auscultation, no wheezing or crackles. ABDOMEN: Soft, nontender, nondistended, normoactive bowel sounds. No palpable organomegaly. MUSCULOSKELETAL: No joint swelling or deformity. EXTREMITIES: No cyanosis, clubbing, or pedal edema. NEUROLOGICAL: Gross neurological examination did not reveal any focal deficits. SKIN: No rashes. no petechiae. - Labs CBC & Chem 7: 11/30/20 06:09 11/30/20 06:09 Labs: Abnormal Lab Results - Last 24 Hours (Table) 11/29/20 11/29/20 11/30/20 Range/Units 16:46 21:09 06:09 WBC 10.11 H (4.50-10.00) X 10*3/uL RBC 3.34 L (4.40-5.60) X 10*6/uL Hgb 10.3 L (13.0-17.0) g/dL Hct 31.8 L (39.6-50.0) % RDW 16.7 H (11.5-14.5) % Immature Gran # 0.48 H (0.00-0.04) X 10*3/uL Neutrophils # 8.87 H (1.80-7.70) X 10*3/uL Lymphocytes # 0.27 L (0.90-5.00) X 10*3/uL Eosinophils # 0 L (0.04-0.35) X 10*3/uL D-Dimer (<0.60) mg/L FEU Anion Gap (4.00-12.00) mmol/L BUN (9.0-27.0) mg/dL Creatinine (0.6-1.5) mg/dL Est GFR (CKD-EPI)AfAm (60.0-200.0) Est GFR (CKD-EPI)NonAf (60.0-200.0) BUN/Creatinine Ratio (12.00-20.00) Ratio Glucose (70-110) mg/dL POC Glucose (mg/dL) 444 H 392 H (75-99) mg/dL Calcium (8.7-10.3) mg/dL Lactate Dehydrogenase (120-246) U/L 11/30/20 11/30/20 11/30/20 Range/Units 06:09 06:09 06:53 WBC (4.50-10.00) X 10*3/uL RBC (4.40-5.60) X 10*6/uL Hgb (13.0-17.0) g/dL Hct (39.6-50.0) % RDW (11.5-14.5) % Immature Gran # (0.00-0.04) X 10*3/uL Neutrophils # (1.80-7.70) X 10*3/uL Lymphocytes # (0.90-5.00) X 10*3/uL Eosinophils # (0.04-0.35) X 10*3/uL D-Dimer 11.24 H (<0.60) mg/L FEU Anion Gap 14.00 H (4.00-12.00) mmol/L BUN 115.0 H* (9.0-27.0) mg/dL Creatinine 2.7 H (0.6-1.5) mg/dL Est GFR (CKD-EPI)AfAm 25.7 L (60.0-200.0) Est GFR (CKD-EPI)NonAf 22.2 L (60.0-200.0) BUN/Creatinine Ratio 42.59 H (12.00-20.00) Ratio Glucose 348 H (70-110) mg/dL POC Glucose (mg/dL) 376 H (75-99) mg/dL Calcium 7.6 L (8.7-10.3) mg/dL Lactate Dehydrogenase 545 H (120-246) U/L 11/30/20 Range/Units 11:28 WBC (4.50-10.00) X 10*3/uL RBC (4.40-5.60) X 10*6/uL Hgb (13.0-17.0) g/dL Hct (39.6-50.0) % RDW (11.5-14.5) % Immature Gran # (0.00-0.04) X 10*3/uL Neutrophils # (1.80-7.70) X 10*3/uL Lymphocytes # (0.90-5.00) X 10*3/uL Eosinophils # (0.04-0.35) X 10*3/uL D-Dimer (<0.60) mg/L FEU Anion Gap (4.00-12.00) mmol/L BUN (9.0-27.0) mg/dL Creatinine (0.6-1.5) mg/dL Est GFR (CKD-EPI)AfAm (60.0-200.0) Est GFR (CKD-EPI)NonAf (60.0-200.0) BUN/Creatinine Ratio (12.00-20.00) Ratio Glucose (70-110) mg/dL POC Glucose (mg/dL) 257 H (75-99) mg/dL Calcium (8.7-10.3) mg/dL Lactate Dehydrogenase (120-246) U/L Assessment and Plan Assessment: -Bilateral, pneumonia -Acute hypoxic respiratory failure -Increasing inflammatory marker -Acute kidney injury secondary to Lasix -Chronic kidney disease, stage IV -Type 2 diabetes mellitus -History of coronary artery disease, status post CABG and AICD -Hypothyroidism Plan: this is a pleasant 75 years old male who presents with, pneumonia, continue with steroids, Lovenox, multiple vitamins including vitamin C, D and zinc. Continue with Lasix per nephrology team recommendation. Patient is also closely by multiple consultants including pulmonary, nephrology and ID team Labs and medication were reviewed.. Continue same treatment. Continue with symptomatic treatment. Resume home medication. Monitor lytes and vitals. DVT and GI prophylaxis. Further recommendationsas per clinical course of the patient DVT prophylaxis: Subcutaneous Lovenox GI Prophylaxis: Pepcid PT/OT: Pending Prognosis is guarded
--- NOTE | 2020-11-30 16:16 | P.PN ---
Subjective Progress Note Date: 11/30/20 Principal diagnosis: Acute COVID-19 pneumonia Acute COVID-19 pneumonia 75-year-old male patient, started having symptoms approximately a week ago when he started feeling a bit tired and fatigued. He subsequently developed fever and diminished appetite and some diarrhea. The patient tested positive for COVID 19 infection 4 days ago and this was again confirmed on 11/19/2020. The patient came into the emergency with weakness and shortness of breath. The patient is currently on 2 L of oxygen by nasal cannula. He is known to have CAD, previous bypass, aortic, chronic disease, diabetes mellitus and diabetic retinopathy and neuropathy and hypothyroidism and gout. Lactate was 0.7, there d-dimer was 0.6, white cell count was at 3.2 with a lymphopenia, creatinine was at 3.37 with a mean of 61. He is also on multivitamins. Chest x-ray showing diffuse bilateral pulmonary infiltrates. On today's evaluation of 4 [phone] the patient is currently on oxygen at 4 L per minute. The patient is quite comfortable. Pulse ox is around 95% and FiO2 can be obviously weaned off. The patient is being seen for a follow-up. The patient is currently being treated with Decadron 6 mg IV every 24 hours. The patient is also on Lovenox 40 mg subcu daily and the patient is also on Remdesivir day #2. No follow-up chest x-rays available from today. The rest of the labs are showing chronic kidney disease with a creatinine of 2.7. The patient has chronic metabolic acidosis which is of a non-anion gap type. On 11/22/2020 patient seen in follow-up. Is comfortable, still desat easily, feels tired, but no acute distress, today's labs have been reviewed, d-dimer 0.69, CRP is 35.6, no LDH. Has not had a chest x-ray, he is currently on 7 L, his pulse ox is 89%, no fever, remains on Remdesivir, today is day 3 of treatment. On 11/23/2020 patient is pretty stable, he remains on 5 L of oxygen, her pulse ox 89-90%, he is breathing comfortably, no worsening dyspnea, his 0.9, saline at 60 per hour, patient completed Remdesivir treatment, he remains on steroids, and prophylactic Lovenox. No worsening dyspnea, today's labs have been reviewed, d- dimer is 1.90, renal profile is slightly improved from yesterday, patient continues on IV fluids, no nausea vomiting or diarrhea, CRP is trending down, LDH with today is pending. On 11/25/2000 patient seen in follow-up on medical surgical floor, he is sitting up in the chair, appears to be breathing comfortably although his oxygen requirements have increased, and is currently on 15 L per high flow nasal cannula up from 12 L from yesterday, he denies any worsening dyspnea, lung sounds reveal diffuse bilateral crackles, no chest discomfort, no signs of any respiratory distress. No cough, no wheezing, today's chest x-ray shows bilateral mid to lower lung increased opacities, findings consistent with COVID- 19 pneumonia, the findings are stable in appearance. Follow-up inflammatory markers showed d-dimer of 19.16, LDH is up to 2028, CRP is 2.4. Patient has completed his Remdesivir course, she remains on daily dose of Decadron 6 mg, and Lovenox 30 mg daily, his renal function appears to be relatively stable, his bun is 64, and creatinine is 2.12 On 11/26/2020 patient seen in follow-up on medical surgical floor, he sitting up in the chair, he is breathing comfortably, he is currently down to 13 L, and his pulse ox is 90-94%, his been afebrile, overall she looks stable, he does not appear to be in any acute distress, he is a d-dimer has trended up, and on today's labs it is up to 30.3, and his Lovenox dose will be adjusted. Today's inflammatory markers are improving. He remains on daily dose IV Decadron 6 mg daily, Lovenox, multivitamins, and his IV fluids are infusing at a rate of 60 ML per hour, no new chest x-ray today, his kidney function shows slight improvement On 11/27/2000 patient seen in follow-up on medical surgical floor, he remains on high flow oxygen 15 L, and the nonrebreather mask, he does desat when he removes his nonrebreather mask down to 86% however he denies any dyspnea, he does not feel stressed at all, and looks very comfortable, he sitting up in the recliner, awake and alert, oriented 3, he is afebrile, hemodynamically has been stable, he has no specific complaints, and his today's chest x-ray shows cardiomegaly and low lung volumes with bilateral mid to lower lung reticular and confluent opacities consistent with COVID-19 pneumonia with no change from previousexam. Today's labs have been reviewed, white blood cell count is 5.45, hemoglobin is 9.3, no d-dimer today, but yesterday's d-dimer was quite elevated at 30.3, and his Lovenox dose was adjusted and increased to 40 mg twice a day, his electrolyte panel shows CO2 of 28.1, but prostate electrolytes are within normal limits, B1 is 84, creatinine is 2.2, his LDH is down to 687, improving, his CRP is 1.2 on today's labs. He continues on Decadron 6 mg daily, he is on Lovenox 40 mg twice a day, and he is receiving IV hydration at 60 ML per hour, nephrology is following On 11/28/2020 patient seen in follow-up on medical surgical floor, he is resting comfortably in bed, he is currently on 15 L high flow and 100% nonrebreather, he looks quite comfortable, he denies any shortness of breath, minimal cough, he is breathing comfortably, his pro-calcitonin level was low, his inflammatory markers were improving, his d-dimer was elevated on 11/26/2020 patient is on 40 mg of Lovenox twice daily, Lasix is at 40 mg every 12 hours patient is in negative fluid balance. No new chest x-ray today On 11/29/2000 patient seen in follow-up on medical surgical floor, is currently on 15 L per high flow nasal cannula, and 100 nonrebreather mask, and he is satting about 93%, he does not feel short of breath, he seems to be breathing very comfortably, he is afebrile, hemodynamically stable, his chest x-ray today shows low lung volumes with bilateral mid to lower lung reticular and confluent opacities consistent with COVID-19 pneumonia. Findings are similar to his previous chest x-ray, lower extremity Dopplers were completed and he was negative for DVT. His d-dimer is trending down, and is down to 16.0. The rest of his lab work has been reviewed, showing white blood cell count of 8.7, hemoglobin of 10.5, sodium is 136, potassium is 4.5, chloride is 98, BUN of 108, and creatinine is 3.2, his calcitonin level was negative at 0.10, his inflammatory markers were improving since admission. No nausea vomiting or diarrhea, and patient continues on daily dose of IV Decadron 6 mg, continues on Lovenox 40 mg twice daily, she was given a dose of Lasix yesterday and he was started on maintenance dose of IV Lasix On 11/30/2020 patient seen in follow-up on medical surgical floor, he is resting comfortably in bed, currently off the nonrebreather mask, on 15 L per high flow nasal cannula with his pulse ox is 90-91%, he looks very comfortable, breathing comfortably, no worsening dyspnea. Cooperative chest discomfort, no cough. No fever or chills. No acute events overnight, patient did receive 1 dose of Toci yesterday 720 mg, he remains on Lovenox 40 mg twice a day, and daily dose Decadron, today's labs have been reviewed, showing white blood cell, 10.1, hemoglobin of 10.3, d-dimer is trending down, down to 11.4, electrolytes are within normal limits, renal profile shows some improvement, pro-Joshua was negative, inflammatory markers are trending down, patient denies any specific complaints Objective - Vital Signs Vital signs: Vital Signs Temp 98.3 F 11/30/20 13:55 Pulse 69 11/30/20 13:55 Resp 18 11/30/20 13:55 BP 129/68 11/30/20 13:55 Pulse Ox 92 L 11/30/20 13:55 Intake & Output 11/29/20 11/30/20 11/30/20 18:59 06:59 18:59 Intake Total 600 Output Total 1300 500 Balance -1300 100 Intake: Oral 600 Output: Urine 1300 500 Other: Voiding Method Urinal External Catheter Diaper # Voids 2 - Exam GENERAL EXAM: Alert, pleasant 75-year-old white male, currently on 15 l/min with pulse ox of 92% comfortable in no apparent distress. HEAD: Normocephalic/atraumatic. EYES: Normal reaction of pupils, equal size. Conjunctiva pink, sclera white. NOSE: Clear with pink turbinates. THROAT: No erythema or exudates. NECK: No masses, no JVD, no thyroid enlargement, no adenopathy. CHEST: No chest wall deformity. Symmetrical expansion. LUNGS: Equal air entry with bilateral crackles CVS: Regular rate and rhythm, normal S1 and S2, no gallops, no murmurs, no rubs ABDOMEN: Soft, nontender. No hepatosplenomegaly, normal bowel sounds, no guarding or rigidity. EXTREMITIES: No clubbing, no edema, no cyanosis, 2+ pulses and upper and lower extremities. MUSCULOSKELETAL: Muscle strength and tone normal. SPINE: No scoliosis or deformity SKIN: No rashes CENTRAL NERVOUS SYSTEM: Alert and oriented -3. No focal deficits, tone is normal in all 4 extremities. PSYCHIATRIC: Alert and oriented -3. Appropriate affect. Intact judgment and insight. - Labs CBC & Chem 7: 11/30/20 06:09 11/30/20 06:09 Labs: Abnormal Lab Results - Last 24 Hours (Table) 11/29/20 11/29/20 11/30/20 Range/Units 16:46 21:09 06:09 WBC 10.11 H (4.50-10.00) X 10*3/uL RBC 3.34 L (4.40-5.60) X 10*6/uL Hgb 10.3 L (13.0-17.0) g/dL Hct 31.8 L (39.6-50.0) % RDW 16.7 H (11.5-14.5) % Immature Gran # 0.48 H (0.00-0.04) X 10*3/uL Neutrophils # 8.87 H (1.80-7.70) X 10*3/uL Lymphocytes # 0.27 L (0.90-5.00) X 10*3/uL Eosinophils # 0 L (0.04-0.35) X 10*3/uL D-Dimer (<0.60) mg/L FEU Anion Gap (4.00-12.00) mmol/L BUN (9.0-27.0) mg/dL Creatinine (0.6-1.5) mg/dL Est GFR (CKD-EPI)AfAm (60.0-200.0) Est GFR (CKD-EPI)NonAf (60.0-200.0) BUN/Creatinine Ratio (12.00-20.00) Ratio Glucose (70-110) mg/dL POC Glucose (mg/dL) 444 H 392 H (75-99) mg/dL Calcium (8.7-10.3) mg/dL Lactate Dehydrogenase (120-246) U/L 11/30/20 11/30/20 11/30/20 Range/Units 06:09 06:09 06:53 WBC (4.50-10.00) X 10*3/uL RBC (4.40-5.60) X 10*6/uL Hgb (13.0-17.0) g/dL Hct (39.6-50.0) % RDW (11.5-14.5) % Immature Gran # (0.00-0.04) X 10*3/uL Neutrophils # (1.80-7.70) X 10*3/uL Lymphocytes # (0.90-5.00) X 10*3/uL Eosinophils # (0.04-0.35) X 10*3/uL D-Dimer 11.24 H (<0.60) mg/L FEU Anion Gap 14.00 H (4.00-12.00) mmol/L BUN 115.0 H* (9.0-27.0) mg/dL Creatinine 2.7 H (0.6-1.5) mg/dL Est GFR (CKD-EPI)AfAm 25.7 L (60.0-200.0) Est GFR (CKD-EPI)NonAf 22.2 L (60.0-200.0) BUN/Creatinine Ratio 42.59 H (12.00-20.00) Ratio Glucose 348 H (70-110) mg/dL POC Glucose (mg/dL) 376 H (75-99) mg/dL Calcium 7.6 L (8.7-10.3) mg/dL Lactate Dehydrogenase 545 H (120-246) U/L 11/30/20 Range/Units 11:28 WBC (4.50-10.00) X 10*3/uL RBC (4.40-5.60) X 10*6/uL Hgb (13.0-17.0) g/dL Hct (39.6-50.0) % RDW (11.5-14.5) % Immature Gran # (0.00-0.04) X 10*3/uL Neutrophils # (1.80-7.70) X 10*3/uL Lymphocytes # (0.90-5.00) X 10*3/uL Eosinophils # (0.04-0.35) X 10*3/uL D-Dimer (<0.60) mg/L FEU Anion Gap (4.00-12.00) mmol/L BUN (9.0-27.0) mg/dL Creatinine (0.6-1.5) mg/dL Est GFR (CKD-EPI)AfAm (60.0-200.0) Est GFR (CKD-EPI)NonAf (60.0-200.0) BUN/Creatinine Ratio (12.00-20.00) Ratio Glucose (70-110) mg/dL POC Glucose (mg/dL) 257 H (75-99) mg/dL Calcium (8.7-10.3) mg/dL Lactate Dehydrogenase (120-246) U/L Assessment and Plan Plan: 1 acute COVID 19 related pneumonia with secondary shortness of breath and hypoxic respiratory failure the patient's symptoms of generalized weakness and dehydration, currently on 4 L of oxygen by nasal cannula, patient was started on Remdesivir on 11/20/2020, Toci on 11/29/2020 2 acute hypoxic respiratory failure currently on 2 L of oxygen by nasal cannula 3 coronary artery disease with previous positive bypass surgery 4 mild troponin leak, could be related to Covid 19 infection 5 history of AICD placement 6 hypothyroidism 7 diabetes mellitus 8 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 I reviewed the nurse practitioner's note and agree with the documented findings and plan of care. Lung sounds are positive for bibasilar crackles. The findings and the impression was discussed with the patient. I attest to the documentation by the nurse practitioner. Time with Patient: Less than 30
--- NOTE | 2020-11-30 16:27 | PN ---
PROGRESS NOTE DATE OF SERVICE: 11/30/2020 REASON FOR FOLLOWUP: COVID-19 pneumonia. INTERVAL HISTORY: The patient is currently afebrile. The patient is breathing comfortably. He is currently on nasal cannula oxygen. The patient denies having any chest pain or any worsening cough. No abdominal pain or diarrhea. PHYSICAL EXAMINATION: Blood pressure 129/58 with pulse of 69, temperature 98.3. He is 92% on 15 L high-flow oxygen. General description is an elderly male up in the bed in no distress. RESPIRATORY SYSTEM: Unlabored breathing. Clear to auscultation anteriorly. HEART: S1, S2. Regular rate and rhythm. ABDOMEN: Soft. No tenderness. LABS: Hemoglobin is 10.3, white count 10.1. BUN of 115. Creatinine is 2.7. DIAGNOSTIC IMPRESSION AND PLAN: Patient with COVID-19 pneumonia in this patient with minimal clinical response. He is currently covered with dexamethasone, Lovenox, zinc and ascorbic acid; to continue along with respiratory support and monitor his clinical course closely. MMODL / IJN: [id number] /
[2020-11-30 16:40] LABS: Glucose,Whole Blood 403 mg/dL (75-99)
[2020-11-30] MEDS: allopurinoL 100 MG TAB PO SCH (17:35)
--- NOTE | 2020-11-30 17:53 | PN ---
PROGRESS NOTE The patient is seen for followup for chronic kidney disease. He has had acute kidney injury as well. Renal function had been mostly stable. Creatinine had jumped up to 3.2 yesterday. The patient was being diuresed. His diuretics are currently on hold. Creatinine has decreased to 2.7 today. Overall, patient is fairly stable. He continues to require large amounts of oxygen, currently needing about 15 L high-flow oxygen. PHYSICAL EXAMINATION: Blood pressure this morning 132/69, heart rate 63 per minute. He is afebrile. Examination shows no significant edema lower extremities. ABDOMEN: Soft, nontender. 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 LAB: Show sodium 138, potassium 4.2, chloride 100, BUN 115, serum creatinine 2.7 mg/dL. ASSESSMENT: 1. Acute kidney injury associated with recent diuresis and underlying COVID infection currently improved. 2. Chronic kidney disease. Renal function mostly at baseline during this hospitalization. Etiology is nephrosclerosis. 3. Metabolic acidosis, maintained on sodium bicarb orally. 4. Anemia of chronic disease maintained on Aranesp. 5. Covid pneumonia with acute hypoxic respiratory failure maintained on steroids and oxygen supplementation. PLAN: Continue off Lasix and decrease sodium bicarb to daily. MMODL / IJN: [id number] /
[2020-11-30 20:01] LABS: Glucose,Whole Blood 401 mg/dL (75-99)
[2020-11-30] MEDS: INSULIN DETEMIR (LEVEMIR) 100 UNIT/ML SYR SQ SCH (20:19)
[2020-11-30] MEDS: TAMSULOSIN 0.4 MG CAP.ER.24H PO SCH (20:19)
[2020-11-30] MEDS: ATORVASTATIN 40 MG TAB PO SCH (20:19)
[2020-11-30] MEDS: ALPRAZolam 0.25 MG TAB PO PRN (20:21)
[2020-12-01] MEDS: LEVOTHYROXINE 100 MCG TAB PO SCH (05:49)
[2020-12-01 06:59] LABS: Glucose,Whole Blood 142 mg/dL (75-99)
[2020-12-01] MEDS: INSULIN DETEMIR (LEVEMIR) 100 UNIT/ML SYR SQ SCH ×2 (08:04→21:05)
[2020-12-01] MEDS: ENOXAPARIN 40 MG/0.4 ML SYRINGE SQ SCH ×2 (08:09→21:05)
[2020-12-01] MEDS: CHOLECALCIFEROL 25 MCG (1000 IU) TABLET PO SCH (08:10)
[2020-12-01] MEDS: INSULIN ASPART (NovoLOG) 100 UNIT/ML VIAL SQ SCH ×4 (08:10→21:04)
[2020-12-01] MEDS: ASCORBIC ACID 500 MG TAB PO SCH ×2 (08:10→21:05)
[2020-12-01] MEDS: REPAGLINIDE 1 MG TAB PO SCH ×2 (08:10→16:52)
[2020-12-01] MEDS: ASPIRIN 81 MG PO SCH (08:10)
[2020-12-01] MEDS: ZINC SULFATE 220 MG CAP PO SCH (08:10)
[2020-12-01] MEDS: FAMOTIDINE 20 MG TAB PO SCH (08:15)
[2020-12-01] MEDS: DEXAMETHASONE SOD PHOSPHATE 10 MG/ML 1 ML VIAL IV SCH (08:16)
[2020-12-01 08:46] LABS: Calcium 7.6 mg/dL (8.4-10.2)
[2020-12-01] MEDS ORDERED: SODIUM BICARBONATE TAB 650 MG TAB PO SCH (09:00)
[2020-12-01 09:14] LABS: C Reactive Protein 0.9 mg/dL (<1.0)
[2020-12-01 11:58] LABS: Glucose,Whole Blood 182 mg/dL (75-99)
[2020-12-01] MEDS: FERROUS SULFATE 325 MG TAB PO SCH ×2 (12:23→16:50)
[2020-12-01] MEDS: carvediloL 6.25 MG TAB PO SCH ×2 (12:24→16:50)
--- NOTE | 2020-12-01 14:11 | P.PN ---
Subjective From recurrence: Pleasant 75-year-old patient of Dr. Horta. Chronic stable medical conditions include diabetes, hypothyroid, gout, peripheral neuropathy, diabetic retinopathy, chronic kidney disease, coronary artery disease with a history of bypass and AICD. Patient's is by the bedside who provides most of the history. Patient about 7 days ago on Friday every couple of days before that has started feeling a little bit tired. Motor worse on Friday. Also developed a fever. Decreased appetite diet. Had some diarrhea. Body aches. No loss of smell or taste. Patient did have COVID rapid tested on that was negative. Now becomes short of breath with minimal exertion tired rundown. Patient is tested positive for COVID 19. Initial pulse ox on room air was 98% and then did go down to 94% on 2 L. Admitted with acute bilateral COVID 19 pneumonitis, acute hypoxic respiratory failure, acute myocarditis. Placed on dexamethasone Lovenox. IV Remdesivir Today: More Short of breath. Tired. On 15 L of nasal cannula. Slight cough. Eating about 35%. Subjective: 11/28/2020 This is a pleasant 75 years old male who presents with bilateral Covid pneumonia, hypoxia on the top of his chronic kidney disease stage IV. Patient today states that his breathing somewhat little bit better with little cough but no chest pain or diarrhea. On examination his chest looks clear. However he still is 15 L/m of oxygen to keep saturation above 90%. Patient labs from today and yesterday are reviewed, creatinine at baseline of 2.2, glucose is elevated more than 200, LDH was elevated at 687 and C-reactive protein at 1.2. D-dimer was elevated at 30.3. Patient currently on dexamethasone, vitamin C, D and zinc. He is on Lovenox 40 mg twice a day. 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 Also patient is status post remdesivir. 11/29/2020 Patient still with dyspnea and tachypnea. Little cough. No chest pain. No diarrhea. Patient remains on 2 L/m of oxygen via high flow nasal cannula. Creatinine trended up to 3.2 and Lasix 40 mg twice a lower to once daily. Glucose more than 300 and Levemir 10 units been added. Check inflammatory markers tomorrow. Chest x-ray showing no change from previous. Patient remains on dexamethasone 6 mg daily and Lovenox 40 mg twice daily, also Lasix 40 mg once daily and multiple vitamins. 11/30/2020 Patient is still with some respiratory distress. But no significant worsening. He has little cuff. This still needs 15 L/m of oxygen via high flow nasal cannula to keep his saturation monitoring. Labs showing improvement creatinine 2.7, glucose better at 200s after increasing Levemir 2013 months twice a day, LDH is improving 545 and C-reactive protein is up at 11.2 Patient remains on dexamethasone, Lasix 40 mg daily was discontinued yesterday. Patient continue on Lovenox 40 mg twice daily, multiple vitamin and he received 1 dose of tocilizumab on 11/29. Prognosis is guarded and we'll keep monitoring 12/01/2020 Patient breathing is the same with no significant change clinically compared to yesterday. The patient still needs 15 L of oxygen via nonrebreather to keep oxygen saturation around 96%. Creatinine is trended down to 2.5 compared to 2.7 yesterday after stopping Lasix. Glucose is better controlled. Lactate temperature has increased to 1723 however her C-reactive protein is back to normal today at 0.9. D-dimer is elevated at 12.2 but better than 2 days ago. Patient remains on dexamethasone, multiple vitamins, Lasix has been discontinued already. Continue with Lovenox 40 mg twice daily. Objective - Vital Signs Vital signs: Vital Signs Temp 97.5 F L 12/01/20 09:27 Pulse 56 L 12/01/20 09:27 Resp 20 12/01/20 09:27 BP 134/71 12/01/20 09:27 Pulse Ox 97 12/01/20 09:27 Intake & Output 11/30/20 12/01/20 12/01/20 18:59 06:59 18:59 Output Total 1200 Balance -1200 Output: Urine 1200 Other: Voiding Method External Catheter External Catheter # Bowel Movements 1 - Exam GENERAL: The patient is alert and oriented x3, not in any acute distress. Well developed, well nourished. HEENT: Pupils are round and equally reacting to light. EOMI. No scleral icterus. No conjunctival pallor. Normocephalic, atraumatic. No pharyngeal erythema. No thyromegaly. CARDIOVASCULAR: S1 and S2 present. No murmurs, rubs, or gallops. PULMONARY: Chest is clear to auscultation, no wheezing or crackles. ABDOMEN: Soft, nontender, nondistended, normoactive bowel sounds. No palpable or ganomegaly. MUSCULOSKELETAL: No joint swelling or deformity. EXTREMITIES: No cyanosis, clubbing, or pedal edema. NEUROLOGICAL: Gross neurological examination did not reveal any focal deficits. SKIN: No rashes. no petechiae. - Labs CBC & Chem 7: 11/30/20 06:09 12/01/20 07:53 Labs: Abnormal Lab Results - Last 24 Hours (Table) 11/30/20 11/30/20 12/01/20 Range/Units 16:36 19:59 06:57 D-Dimer (<0.60) mg/L FEU Sodium (137-145) mmol/L BUN (9-20) mg/dL Creatinine (0.66-1.25) mg/dL Glucose (74-99) mg/dL POC Glucose (mg/dL) 403 H 401 H 142 H (75-99) mg/dL Calcium (8.4-10.2) mg/dL Lactate Dehydrogenase (313-618) U/L 12/01/20 12/01/20 12/01/20 Range/Units 07:53 07:53 11:54 D-Dimer 12.25 H (<0.60) mg/L FEU Sodium 136 L (137-145) mmol/L BUN 113 H* (9-20) mg/dL Creatinine 2.59 H (0.66-1.25) mg/dL Glucose 100 H (74-99) mg/dL POC Glucose (mg/dL) 182 H (75-99) mg/dL Calcium 7.6 L (8.4-10.2) mg/dL Lactate Dehydrogenase 1723 H (313-618) U/L Assessment and Plan Assessment: -Bilateral, pneumonia -Acute hypoxic respiratory failure -Increasing inflammatory marker -Acute kidney injury secondary to Lasix -Chronic kidney disease, stage IV -Type 2 diabetes mellitus -History of coronary artery disease, status post CABG and AICD -Hypothyroidism Plan: this is a pleasant 75 years old male who presents with, pneumonia, continue with steroids, Lovenox, multiple vitamins including vitamin C, D and zinc. Discontinue Lasix and monitor creatinine Patient is also closely by multiple consultants including pulmonary, nephrology and ID team Labs and medication were reviewed.. Continue same treatment. Continue with symptomatic treatment. Resume home medication. Monitor lytes and vitals. DVT and GI prophylaxis. Further recommendationsas per clinical course of the patient DVT prophylaxis: Subcutaneous Lovenox GI Prophylaxis: Pepcid PT/OT: Pending Prognosis is guarded
--- NOTE | 2020-12-01 16:45 | P.PN ---
Subjective Progress Note Date: 12/01/20 Principal diagnosis: Acute COVID-19 pneumonia Acute COVID-19 pneumonia 75-year-old male patient, started having symptoms approximately a week ago when he started feeling a bit tired and fatigued. He subsequently developed fever and diminished appetite and some diarrhea. The patient tested positive for COVID 19 infection 4 days ago and this was again confirmed on 11/19/2020. The patient came into the emergency with weakness and shortness of breath. The patient is currently on 2 L of oxygen by nasal cannula. He is known to have CAD, previous bypass, aortic, chronic disease, diabetes mellitus and diabetic retinopathy and neuropathy and hypothyroidism and gout. Lactate was 0.7, there d-dimer was 0.6, white cell count was at 3.2 with a lymphopenia, creatinine was at 3.37 with a mean of 61. He is also on multivitamins. Chest x-ray showing diffuse bilateral pulmonary infiltrates. On today's evaluation of 4 [phone] the patient is currently on oxygen at 4 L per minute. The patient is quite comfortable. Pulse ox is around 95% and FiO2 can be obviously weaned off. The patient is being seen for a follow-up. The patient is currently being treated with Decadron 6 mg IV every 24 hours. The patient is also on Lovenox 40 mg subcu daily and the patient is also on Remdesivir day #2. No follow-up chest x-rays available from today. The rest of the labs are showing chronic kidney disease with a creatinine of 2.7. The patient has chronic metabolic acidosis which is of a non-anion gap type. On 11/22/2020 patient seen in follow-up. Is comfortable, still desat easily, feels tired, but no acute distress, today's labs have been reviewed, d-dimer 0.69, CRP is 35.6, no LDH. Has not had a chest x-ray, he is currently on 7 L, his pulse ox is 89%, no fever, remains on Remdesivir, today is day 3 of treatment. On 11/23/2020 patient is pretty stable, he remains on 5 L of oxygen, her pulse ox 89-90%, he is breathing comfortably, no worsening dyspnea, his 0.9, saline at 60 per hour, patient completed Remdesivir treatment, he remains on steroids, and prophylactic Lovenox. No worsening dyspnea, today's labs have been reviewed, d- dimer is 1.90, renal profile is slightly improved from yesterday, patient continues on IV fluids, no nausea vomiting or diarrhea, CRP is trending down, LDH with today is pending. On 11/25/2000 patient seen in follow-up on medical surgical floor, he is sitting up in the chair, appears to be breathing comfortably although his oxygen requirements have increased, and is currently on 15 L per high flow nasal cannula up from 12 L from yesterday, he denies any worsening dyspnea, lung sounds reveal diffuse bilateral crackles, no chest discomfort, no signs of any respiratory distress. No cough, no wheezing, today's chest x-ray shows bilateral mid to lower lung increased opacities, findings consistent with COVID- 19 pneumonia, the findings are stable in appearance. Follow-up inflammatory markers showed d-dimer of 19.16, LDH is up to 2028, CRP is 2.4. Patient has completed his Remdesivir course, she remains on daily dose of Decadron 6 mg, and Lovenox 30 mg daily, his renal function appears to be relatively stable, his bun is 64, and creatinine is 2.12 On 11/26/2020 patient seen in follow-up on medical surgical floor, he sitting up in the chair, he is breathing comfortably, he is currently down to 13 L, and his pulse ox is 90-94%, his been afebrile, overall she looks stable, he does not appear to be in any acute distress, he is a d-dimer has trended up, and on today's labs it is up to 30.3, and his Lovenox dose will be adjusted. Today's inflammatory markers are improving. He remains on daily dose IV Decadron 6 mg daily, Lovenox, multivitamins, and his IV fluids are infusing at a rate of 60 ML per hour, no new chest x-ray today, his kidney function shows slight improvement On 11/27/2000 patient seen in follow-up on medical surgical floor, he remains on high flow oxygen 15 L, and the nonrebreather mask, he does desat when he removes his nonrebreather mask down to 86% however he denies any dyspnea, he does not feel stressed at all, and looks very comfortable, he sitting up in the recliner, awake and alert, oriented 3, he is afebrile, hemodynamically has been stable, he has no specific complaints, and his today's chest x-ray shows cardiomegaly and low lung volumes with bilateral mid to lower lung reticular and confluent opacities consistent with COVID-19 pneumonia with no change from previousexam. Today's labs have been reviewed, white blood cell count is 5.45, hemoglobin is 9.3, no d-dimer today, but yesterday's d-dimer was quite elevated at 30.3, and his Lovenox dose was adjusted and increased to 40 mg twice a day, his electrolyte panel shows CO2 of 28.1, but prostate electrolytes are within normal limits, B1 is 84, creatinine is 2.2, his LDH is down to 687, improving, his CRP is 1.2 on today's labs. He continues on Decadron 6 mg daily, he is on Lovenox 40 mg twice a day, and he is receiving IV hydration at 60 ML per hour, nephrology is following On 11/28/2020 patient seen in follow-up on medical surgical floor, he is resting comfortably in bed, he is currently on 15 L high flow and 100% nonrebreather, he looks quite comfortable, he denies any shortness of breath, minimal cough, he is breathing comfortably, his pro-calcitonin level was low, his inflammatory markers were improving, his d-dimer was elevated on 11/26/2020 patient is on 40 mg of Lovenox twice daily, Lasix is at 40 mg every 12 hours patient is in negative fluid balance. No new chest x-ray today On 11/29/2000 patient seen in follow-up on medical surgical floor, is currently on 15 L per high flow nasal cannula, and 100 nonrebreather mask, and he is satting about 93%, he does not feel short of breath, he seems to be breathing very comfortably, he is afebrile, hemodynamically stable, his chest x-ray today shows low lung volumes with bilateral mid to lower lung reticular and confluent opacities consistent with COVID-19 pneumonia. Findings are similar to his previous chest x-ray, lower extremity Dopplers were completed and he was negative for DVT. His d-dimer is trending down, and is down to 16.0. The rest of his lab work has been reviewed, showing white blood cell count of 8.7, hemoglobin of 10.5, sodium is 136, potassium is 4.5, chloride is 98, BUN of 108, and creatinine is 3.2, his calcitonin level was negative at 0.10, his inflammatory markers were improving since admission. No nausea vomiting or diarrhea, and patient continues on daily dose of IV Decadron 6 mg, continues on Lovenox 40 mg twice daily, she was given a dose of Lasix yesterday and he was started on maintenance dose of IV Lasix On 11/30/2020 patient seen in follow-up on medical surgical floor, he is resting comfortably in bed, currently off the nonrebreather mask, on 15 L per high flow nasal cannula with his pulse ox is 90-91%, he looks very comfortable, breathing comfortably, no worsening dyspnea. Cooperative chest discomfort, no cough. No fever or chills. No acute events overnight, patient did receive 1 dose of Toci yesterday 720 mg, he remains on Lovenox 40 mg twice a day, and daily dose Decadron, today's labs have been reviewed, showing white blood cell, 10.1, hemoglobin of 10.3, d-dimer is trending down, down to 11.4, electrolytes are within normal limits, renal profile shows some improvement, pro-Joshua was negative, inflammatory markers are trending down, patient denies any specific complaints On 12/01/2020 patient seen in follow-up on medical surgical floor, is currently on 15 L per high flow nasal cannula and nonrebreather mask, and his pulse ox is 100%, he is breathing very comfortably, denies any cough, denies any chest pain, has had no fever or chills, no nausea vomiting diarrhea, no abdominal pain, no new chest x-rays, his labs have been reviewed, d-dimer today is 12.5, electroly angel are unremarkable, his renal profile slightly improved, his BUN is 113, and creatinine is 2.59. Objective - Vital Signs Vital signs: Vital Signs Temp 97.4 F L 12/01/20 14:26 Pulse 57 L 12/01/20 14:26 Resp 18 12/01/20 14:26 BP 129/73 12/01/20 14:26 Pulse Ox 100 12/01/20 14:26 Intake & Output 11/30/20 12/01/20 12/01/20 18:59 06:59 18:59 Output Total 1200 Balance -1200 Output: Urine 1200 Other: Voiding Method External Catheter External Catheter # Bowel Movements 1 - Exam GENERAL EXAM: Alert, pleasant 75-year-old white male, currently on 15 l/min per high flow nasal cannula in addition to 100% nonrebreather mask and his pulse ox is 100% comfortable in no apparent distress. HEAD: Normocephalic/atraumatic. EYES: Normal reaction of pupils, equal size. Conjunctiva pink, sclera white. NOSE: Clear with pink turbinates. THROAT: No erythema or exudates. NECK: No masses, no JVD, no thyroid enlargement, no adenopathy. CHEST: No chest wall deformity. Symmetrical expansion. LUNGS: Equal air entry with bilateral crackles CVS: Regular rate and rhythm, normal S1 and S2, no gallops, no murmurs, no rubs ABDOMEN: Soft, nontender. No hepatosplenomegaly, normal bowel sounds, no guarding or rigidity. EXTREMITIES: No clubbing, no edema, no cyanosis, 2+ pulses and upper and lower extremities. MUSCULOSKELETAL: Muscle strength and tone normal. SPINE: No scoliosis or deformity SKIN: No rashes CENTRAL NERVOUS SYSTEM: Alert and oriented -3. No focal deficits, tone is normal in all 4 extremities. PSYCHIATRIC: Alert and oriented -3. Appropriate affect. Intact judgment and insight. - Labs CBC & Chem 7: 11/30/20 06:09 12/01/20 07:53 Labs: Abnormal Lab Results - Last 24 Hours (Table) 11/30/20 11/30/20 12/01/20 Range/Units 16:36 19:59 06:57 D-Dimer (<0.60) mg/L FEU Sodium (137-145) mmol/L BUN (9-20) mg/dL Creatinine (0.66-1.25) mg/dL Glucose (74-99) mg/dL POC Glucose (mg/dL) 403 H 401 H 142 H (75-99) mg/dL Calcium (8.4-10.2) mg/dL Lactate Dehydrogenase (313-618) U/L 12/01/20 12/01/20 12/01/20 Range/Units 07:53 07:53 11:54 D-Dimer 12.25 H (<0.60) mg/L FEU Sodium 136 L (137-145) mmol/L BUN 113 H* (9-20) mg/dL Creatinine 2.59 H (0.66-1.25) mg/dL Glucose 100 H (74-99) mg/dL POC Glucose (mg/dL) 182 H (75-99) mg/dL Calcium 7.6 L (8.4-10.2) mg/dL Lactate Dehydrogenase 1723 H (313-618) U/L Assessment and Plan Plan: 1 acute COVID 19 related pneumonia with secondary shortness of breath and hypoxic respiratory failure the patient's symptoms of generalized weakness and dehydration, currently on 4 L of oxygen by nasal cannula, patient was started on Remdesivir on 11/20/2020, Toci on 11/29/2020 2 acute hypoxic respiratory failure currently on 2 L of oxygen by nasal cannula 3 coronary artery disease with previous positive bypass surgery 4 mild troponin leak, could be related to Covid 19 infection 5 history of AICD placement 6 hypothyroidism 7 diabetes mellitus 8 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 9 gout 10 anemia of chronic disease 11 diabetic retinopathy 12 hypothyroidism 13 acute kidney injury Plan: We removed the 100% nonrebreather mask, and patient is currently down to 10 L, continue weaning FiO2 He is breathing very comfortably, clinically asymptomatic Status post 1 dose Toci Continue Decadron, continue current dose Lovenox, today's labs have been noted, Daily d-dimer Increase activity as tolerated, Once oxygen is down to 5 L or less may consider discharge home I performed a history & physical examination of the patient and discussed their management with my nurse practitioner, Iza Mccarthy. I reviewed the nurse practitioner's note and agree with the documented findings and plan of care. Lung sounds are positive for bibasilar crackles. The findings and the impression was discussed with the patient. I attest to the documentation by the nurse practitioner. Time with Patient: Less than 30
[2020-12-01 16:46] LABS: Glucose,Whole Blood 126 mg/dL (75-99)
[2020-12-01] MEDS: allopurinoL 100 MG TAB PO SCH (16:50)
--- NOTE | 2020-12-01 20:11 | PN ---
PROGRESS NOTE Patient is seen for followup for chronic kidney disease and acute kidney injury associated with underlying COVID pneumonia. Patient's baseline creatinine is around 2. His acute kidney injury had improved after initial admission, with creatinine coming down to about 2.0 and 2.2 from 3.37 on initial admission. However, his oxygen requirements had increased and he had evidence of mild volume overload and was started on diuretics. Serum creatinine had increased to 3.2 and Lasix was discontinued. Renal function has improved, with creatinine now down to 2.59. BUN is disproportionately elevated secondary to steroids and hypercatabolic state. On examination today, patient is awake, comfortable. He is maintained on non- rebreather requiring 15 L high-flow oxygen. Blood pressure this morning 134/71, heart rate 56 per minute. He is afebrile. Examination of lower extremities shows no evidence of edema. 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 Heart and lungs are not examined. Labs show sodium 136, potassium 4.0, chloride 100, BUN 113, serum creatinine 2.59, LDH 1723. ASSESSMENT: 1. Acute kidney injury associated with COVID pneumonia initially and then improved with worsening of creatinine again and now improving post discontinuation of diuretics. BUN is disproportionately elevated secondary to steroids and hypercatabolic state. 2. COVID-19 pneumonia. 3. Acute hypoxic respiratory failure. 4. Metabolic acidosis, currently improved. I will discontinue the sodium bicarb. 5. Chronic kidney disease, stage IV. Baseline creatinine about 2 secondary to nephrosclerosis and diabetic kidney disease. PLAN: Continue off of diuretics. Repeat labs in a.m. Discontinue sodium bicarb. MMODL / IJN: [id number] /
[2020-12-01 20:27] LABS: Glucose,Whole Blood 169 mg/dL (75-99)
[2020-12-01] MEDS: ALPRAZolam 0.25 MG TAB PO PRN (21:05)
[2020-12-01] MEDS: ATORVASTATIN 40 MG TAB PO SCH (21:05)
[2020-12-01] MEDS: TAMSULOSIN 0.4 MG CAP.ER.24H PO SCH (21:05)
[2020-12-02] MEDS ORDERED: SODIUM CHLORIDE 0.9% 500 ML 500 ML IV ONE ×3 (02:28→16:06)
[2020-12-02] MEDS: LEVOTHYROXINE 100 MCG TAB PO SCH (04:58)
[2020-12-02] MEDS: ALPRAZolam 0.25 MG TAB PO PRN ×2 (04:58→20:53)
[2020-12-02 06:52] LABS: Glucose,Whole Blood 105 mg/dL (75-99)
--- NOTE | 2020-12-02 07:02 | PN ---
PROGRESS NOTE DATE OF SERVICE: 12/01/2020 REASON FOR FOLLOW UP: COVID-19 pneumonia. INTERVAL HISTORY: The patient is currently afebrile, mentioned breathing comfortably, however, he is requiring high-flow nasal cannula oxygen nonrebreather. The patient denies having any chest pain or any worsening cough. No vomiting. No abdominal pain no diarrhea. PHYSICAL EXAMINATION: Blood pressure is 103/61, pulse of 62, temperature 97.9. He is 89% on ( ) nasal cannula. General description is an elderly male up in the bed in no distress. Respiratory system: Unlabored breathing with decreased breath sounds in the base, with no wheeze. Heart S1, S2. Regular rate and rhythm. Abdomen soft, no tenderness. LABS: BUN of 130, creatinine 2.59, D-[place] 12[place] [address]. CRP 0.9. DIAGNOSTIC IMPRESSION AND PLAN: Patient with acute respiratory failure with COVID-19 pneumonia. This patient did have worsening of his respiratory status. He is currently covered with dexamethasone, Lovenox, zinc and ascorbic acid. In view of the worsening of the D-dimer would benefit from a V/Q scan and CT angiogram: Because of the increase in the creatinine will ( ) dose of the Lovenox, will discuss further with Pulmonary. Continue supportive care. MMODL / IJN: [id number] /
[2020-12-02] MEDS: INSULIN ASPART (NovoLOG) 100 UNIT/ML VIAL SQ SCH ×4 (07:27→20:53)
[2020-12-02] MEDS: REPAGLINIDE 1 MG TAB PO SCH ×2 (07:35→16:47)
[2020-12-02] MEDS: CHOLECALCIFEROL 25 MCG (1000 IU) TABLET PO SCH (07:35)
[2020-12-02] MEDS: ENOXAPARIN 40 MG/0.4 ML SYRINGE SQ SCH ×2 (07:35→20:53)
[2020-12-02] MEDS: FAMOTIDINE 20 MG TAB PO SCH (07:36)
[2020-12-02] MEDS: ZINC SULFATE 220 MG CAP PO SCH (07:36)
[2020-12-02] MEDS: DEXAMETHASONE SOD PHOSPHATE 10 MG/ML 1 ML VIAL IV SCH (07:36)
[2020-12-02] MEDS: ASCORBIC ACID 500 MG TAB PO SCH ×2 (07:36→20:53)
[2020-12-02] MEDS: ASPIRIN 81 MG PO SCH (07:36)
[2020-12-02] MEDS: INSULIN DETEMIR (LEVEMIR) 100 UNIT/ML SYR SQ SCH ×2 (07:41→20:53)
[2020-12-02 08:02] LABS: African American GFR (CKD) 25 (>60 ml/min/1.73 sqM); Anion Gap 11 mmol/L; Calcium 6.9 mg/dL (8.4-10.2); Carbon Dioxide 23 mmol/L (22-30); Chloride 102 mmol/L (98-107); Glucose 74 mg/dL (74-99); Non-African American GFR(CKD) 22 (>60 ml/min/1.73 sqM); Potassium 4.2 mmol/L (3.5-5.1); Sodium 136 mmol/L (137-145)
[2020-12-02 08:17] LABS: Blood Urea Nitrogen 130 mg/dL (9-20)
[2020-12-02] MEDS ORDERED: HYDROcodone/APAP 5-325MG 1 EACH TAB PO PRN (09:01)
--- NOTE | 2020-12-02 09:52 | P.PN ---
Subjective Progress Note Date: 12/02/20 Principal diagnosis: This is a 75-year-old male seen in consultation because of chronic kidney disease, secondary diabetic nephropathy with a baseline creatinine from 2-2.7, acute kidney injury from COVID-19 pneumonia, creatinine peaked at 3.37. Currently he is on nasal cannula oxygen. States he is feeling about the same no nausea vomiting he denies any fever chills cough shortness of breath appetite is poor. He is admitted here on 11/19/2020. Vital signs are stable. He looks tired and weak and barely is able to speak Objective - Vital Signs Vital signs: Vital Signs Temp 97.4 F L 12/02/20 04:52 Pulse 55 L 12/02/20 07:38 Resp 20 12/02/20 07:38 BP 113/65 12/02/20 04:52 Pulse Ox 93 L 12/02/20 04:52 Intake & Output 12/01/20 12/02/20 12/02/20 18:59 06:59 18:59 Other: Voiding Method External Catheter External Catheter # Voids 1 Examination awake alert but generalized weakness No JVP, no facial asymmetry. Lungs are significant for bilateral crackles, good air entry bilaterally Heart sounds unremarkable for any murmur rub gallop Abdomen soft nontender Extremity exam reveals no edema Neurologically, generalized weakness - Labs CBC & Chem 7: 11/30/20 06:09 12/02/20 07:17 Labs: Abnormal Lab Results - Last 24 Hours (Table) 12/01/20 12/01/20 12/01/20 Range/Units 07:53 11:54 16:45 Sodium 136 L (137-145) mmol/L BUN 113 H* (9-20) mg/dL Creatinine 2.59 H (0.66-1.25) mg/dL BUN/Creatinine Ratio 41.00 H (12.00-20.00) Ratio Glucose 100 H (74-99) mg/dL POC Glucose (mg/dL) 182 H 126 H (75-99) mg/dL Calcium 7.6 L (8.4-10.2) mg/dL Lactate Dehydrogenase 1723 H (313-618) U/L 12/01/20 12/02/20 12/02/20 Range/Units 20:25 06:50 07:17 Sodium 136 L (137-145) mmol/L BUN 130 H* (9-20) mg/dL Creatinine 2.78 H (0.66-1.25) mg/dL BUN/Creatinine Ratio (12.00-20.00) Ratio Glucose (74-99) mg/dL POC Glucose (mg/dL) 169 H 105 H (75-99) mg/dL Calcium 6.9 L (8.4-10.2) mg/dL Lactate Dehydrogenase (313-618) U/L Assessment and Plan Plan: Impression 1. Acute kidney injury from COVID-19 pneumonia. Creatinine improved from 3.379 admission to 2 on 11/26/2020 but that has gone up again likely from prerenal causes 2. Chronic kidney disease diabetic nephropathy baseline creatinine about 2-2.7. Improving creatinine from admission and was 3.37, 3. Mild anemia hemoglobin is 10.3 on 11/30/2020 4. Diabetes mellitus controlled. Recommendation 1. Will reduce the Coreg because pressure is sometimes going down to 103. 2. Will watch his labs. 3. His blood pressure is somewhat low, his intake is not well documented. 4. Would give him maintenance IV fluid lactated Ringer's at 60 an hour
[2020-12-02 11:42] LABS: Glucose,Whole Blood 110 mg/dL (75-99)
[2020-12-02] MEDS: FERROUS SULFATE 325 MG TAB PO SCH ×2 (11:43→16:48)
[2020-12-02] MEDS: ACETAMINOPHEN TAB 325 MG TAB PO PRN (15:20)
--- NOTE | 2020-12-02 15:23 | P.PN ---
Subjective Progress Note Date: 12/02/20 Principal diagnosis: Acute COVID-19 pneumonia Acute COVID-19 pneumonia 75-year-old male patient, started having symptoms approximately a week ago when he started feeling a bit tired and fatigued. He subsequently developed fever and diminished appetite and some diarrhea. The patient tested positive for COVID 19 infection 4 days ago and this was again confirmed on 11/19/2020. The patient came into the emergency with weakness and shortness of breath. The patient is currently on 2 L of oxygen by nasal cannula. He is known to have CAD, previous bypass, aortic, chronic disease, diabetes mellitus and diabetic retinopathy and neuropathy and hypothyroidism and gout. Lactate was 0.7, there d-dimer was 0.6, white cell count was at 3.2 with a lymphopenia, creatinine was at 3.37 with a mean of 61. He is also on multivitamins. Chest x-ray showing diffuse bilateral pulmonary infiltrates. On today's evaluation of 4 [phone] the patient is currently on oxygen at 4 L per minute. The patient is quite comfortable. Pulse ox is around 95% and FiO2 can be obviously weaned off. The patient is being seen for a follow-up. The patient is currently being treated with Decadron 6 mg IV every 24 hours. The patient is also on Lovenox 40 mg subcu daily and the patient is also on Remdesivir day #2. No follow-up chest x-rays available from today. The rest of the labs are showing chronic kidney disease with a creatinine of 2.7. The patient has chronic metabolic acidosis which is of a non-anion gap type. On 11/22/2020 patient seen in follow-up. Is comfortable, still desat easily, feels tired, but no acute distress, today's labs have been reviewed, d-dimer 0.69, CRP is 35.6, no LDH. Has not had a chest x-ray, he is currently on 7 L, his pulse ox is 89%, no fever, remains on Remdesivir, today is day 3 of treatment. On 11/23/2020 patient is pretty stable, he remains on 5 L of oxygen, her pulse ox 89-90%, he is breathing comfortably, no worsening dyspnea, his 0.9, saline at 60 per hour, patient completed Remdesivir treatment, he remains on steroids, and prophylactic Lovenox. No worsening dyspnea, today's labs have been reviewed, d- dimer is 1.90, renal profile is slightly improved from yesterday, patient continues on IV fluids, no nausea vomiting or diarrhea, CRP is trending down, LDH with today is pending. On 11/25/2000 patient seen in follow-up on medical surgical floor, he is sitting up in the chair, appears to be breathing comfortably although his oxygen requirements have increased, and is currently on 15 L per high flow nasal cannula up from 12 L from yesterday, he denies any worsening dyspnea, lung sounds reveal diffuse bilateral crackles, no chest discomfort, no signs of any respiratory distress. No cough, no wheezing, today's chest x-ray shows bilateral mid to lower lung increased opacities, findings consistent with COVID- 19 pneumonia, the findings are stable in appearance. Follow-up inflammatory markers showed d-dimer of 19.16, LDH is up to 2028, CRP is 2.4. Patient has completed his Remdesivir course, she remains on daily dose of Decadron 6 mg, and Lovenox 30 mg daily, his renal function appears to be relatively stable, his bun is 64, and creatinine is 2.12 On 11/26/2020 patient seen in follow-up on medical surgical floor, he sitting up in the chair, he is breathing comfortably, he is currently down to 13 L, and his pulse ox is 90-94%, his been afebrile, overall she looks stable, he does not appear to be in any acute distress, he is a d-dimer has trended up, and on today's labs it is up to 30.3, and his Lovenox dose will be adjusted. Today's inflammatory markers are improving. He remains on daily dose IV Decadron 6 mg daily, Lovenox, multivitamins, and his IV fluids are infusing at a rate of 60 ML per hour, no new chest x-ray today, his kidney function shows slight improvement On 11/27/2000 patient seen in follow-up on medical surgical floor, he remains on high flow oxygen 15 L, and the nonrebreather mask, he does desat when he removes his nonrebreather mask down to 86% however he denies any dyspnea, he does not feel stressed at all, and looks very comfortable, he sitting up in the recliner, awake and alert, oriented 3, he is afebrile, hemodynamically has been stable, he has no specific complaints, and his today's chest x-ray shows cardiomegaly and low lung volumes with bilateral mid to lower lung reticular and confluent opacities consistent with COVID-19 pneumonia with no change from previousexam. Today's labs have been reviewed, white blood cell count is 5.45, hemoglobin is 9.3, no d-dimer today, but yesterday's d-dimer was quite elevated at 30.3, and his Lovenox dose was adjusted and increased to 40 mg twice a day, his electrolyte panel shows CO2 of 28.1, but prostate electrolytes are within normal limits, B1 is 84, creatinine is 2.2, his LDH is down to 687, improving, his CRP is 1.2 on today's labs. He continues on Decadron 6 mg daily, he is on Lovenox 40 mg twice a day, and he is receiving IV hydration at 60 ML per hour, nephrology is following On 11/28/2020 patient seen in follow-up on medical surgical floor, he is resting comfortably in bed, he is currently on 15 L high flow and 100% nonrebreather, he looks quite comfortable, he denies any shortness of breath, minimal cough, he is breathing comfortably, his pro-calcitonin level was low, his inflammatory markers were improving, his d-dimer was elevated on 11/26/2020 patient is on 40 mg of Lovenox twice daily, Lasix is at 40 mg every 12 hours patient is in negative fluid balance. No new chest x-ray today On 11/29/2000 patient seen in follow-up on medical surgical floor, is currently on 15 L per high flow nasal cannula, and 100 nonrebreather mask, and he is satting about 93%, he does not feel short of breath, he seems to be breathing very comfortably, he is afebrile, hemodynamically stable, his chest x-ray today shows low lung volumes with bilateral mid to lower lung reticular and confluent opacities consistent with COVID-19 pneumonia. Findings are similar to his previous chest x-ray, lower extremity Dopplers were completed and he was negative for DVT. His d-dimer is trending down, and is down to 16.0. The rest of his lab work has been reviewed, showing white blood cell count of 8.7, hemoglobin of 10.5, sodium is 136, potassium is 4.5, chloride is 98, BUN of 108, and creatinine is 3.2, his calcitonin level was negative at 0.10, his inflammatory markers were improving since admission. No nausea vomiting or diarrhea, and patient continues on daily dose of IV Decadron 6 mg, continues on Lovenox 40 mg twice daily, she was given a dose of Lasix yesterday and he was started on maintenance dose of IV Lasix On 11/30/2020 patient seen in follow-up on medical surgical floor, he is resting comfortably in bed, currently off the nonrebreather mask, on 15 L per high flow nasal cannula with his pulse ox is 90-91%, he looks very comfortable, breathing comfortably, no worsening dyspnea. Cooperative chest discomfort, no cough. No fever or chills. No acute events overnight, patient did receive 1 dose of Toci yesterday 720 mg, he remains on Lovenox 40 mg twice a day, and daily dose Decadron, today's labs have been reviewed, showing white blood cell, 10.1, hemoglobin of 10.3, d-dimer is trending down, down to 11.4, electrolytes are within normal limits, renal profile shows some improvement, pro-Joshua was negative, inflammatory markers are trending down, patient denies any specific complaints On 12/01/2020 patient seen in follow-up on medical surgical floor, is currently on 15 L per high flow nasal cannula and nonrebreather mask, and his pulse ox is 100%, he is breathing very comfortably, denies any cough, denies any chest pain, has had no fever or chills, no nausea vomiting diarrhea, no abdominal pain, no new chest x-rays, his labs have been reviewed, d-dimer today is 12.5, electroly angel are unremarkable, his renal profile slightly improved, his BUN is 113, and creatinine is 2.59. On 12/02/2020 patient seen in follow-up on medical surgical floor, he is currently back on 11 L of oxygen resting comfortably in bed, in comfortably, in his pulse ox was 99%, we dropped the FiO2 down to 8 L, and we instructed the nursing staff to continue weaning it to maintain O2 saturations at or above 90%, patient has no specific complaints, no cough, no chest discomfort, no fever, no chills no headaches, no nausea vomiting or diarrhea. Renal function continues to be impaired, and nephrology is following, his BUN is 1:30, and creatinine is 2.70, electrolytes were unremarkable on today's labs. No new chest x-ray today. Patient remains on IV Decadron 6 mg, and Lovenox is currently at 40 mg twice daily. Follow-up d-dimer is pending for today. Objective - Vital Signs Vital signs: Vital Signs Temp 96.8 F L 12/02/20 14:00 Pulse 53 L 12/02/20 14:00 Resp 16 12/02/20 14:00 BP 90/54 12/02/20 14:00 Pulse Ox 89 L 12/02/20 14:00 Intake & Output 12/01/20 12/02/20 12/02/20 18:59 06:59 18:59 Other: Voiding Method External Catheter External Catheter # Voids 1 - Exam GENERAL EXAM: Alert, pleasant 75-year-old white male, currently on 11 l/min per high flow nasal cannula, and patient is currently satting 99% HEAD: Normocephalic/atraumatic. EYES: Normal reaction of pupils, equal size. Conjunctiva pink, sclera white. NOSE: Clear with pink turbinates. THROAT: No erythema or exudates. NECK: No masses, no JVD, no thyroid enlargement, no adenopathy. CHEST: No chest wall deformity. Symmetrical expansion. LUNGS: Equal air entry with bilateral crackles CVS: Regular rate and rhythm, normal S1 and S2, no gallops, no murmurs, no rubs ABDOMEN: Soft, nontender. No hepatosplenomegaly, normal bowel sounds, no guarding or rigidity. EXTREMITIES: No clubbing, no edema, no cyanosis, 2+ pulses and upper and lower extremities. MUSCULOSKELETAL: Muscle strength and tone normal. SPINE: No scoliosis or deformity SKIN: No rashes CENTRAL NERVOUS SYSTEM: Alert and oriented -3. No focal deficits, tone is normal in all 4 extremities. PSYCHIATRIC: Alert and oriented -3. Appropriate affect. Intact judgment and insight. - Labs CBC & Chem 7: 11/30/20 06:09 12/02/20 07:17 Labs: Abnormal Lab Results - Last 24 Hours (Table) 12/01/20 12/01/20 12/01/20 Range/Units 07:53 16:45 20:25 Sodium 136 L (137-145) mmol/L BUN 113 H* (9-20) mg/dL Creatinine 2.59 H (0.66-1.25) mg/dL BUN/Creatinine Ratio 41.00 H (12.00-20.00) Ratio Glucose 100 H (74-99) mg/dL POC Glucose (mg/dL) 126 H 169 H (75-99) mg/dL Calcium 7.6 L (8.4-10.2) mg/dL Lactate Dehydrogenase 1723 H (313-618) U/L 12/02/20 12/02/20 12/02/20 Range/Units 06:50 07:17 11:41 Sodium 136 L (137-145) mmol/L BUN 130 H* (9-20) mg/dL Creatinine 2.78 H (0.66-1.25) mg/dL BUN/Creatinine Ratio (12.00-20.00) Ratio Glucose (74-99) mg/dL POC Glucose (mg/dL) 105 H 110 H (75-99) mg/dL Calcium 6.9 L (8.4-10.2) mg/dL Lactate Dehydrogenase (313-618) U/L Assessment and Plan Plan: 1 acute COVID 19 related pneumonia with secondary shortness of breath and hypoxic respiratory failure the patient's symptoms of generalized weakness and dehydration, currently on 4 L of oxygen by nasal cannula, patient was started on Remdesivir on 11/20/2020, Toci on 11/29/2020 2 acute hypoxic respiratory failure currently on 11 L of oxygen by nasal cannula 3 coronary artery disease with previous positive bypass surgery 4 mild troponin leak, could be related to Covid 19 infection 5 history of AICD placement 6 hypothyroidism 7 diabetes mellitus 8 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 9 gout 10 anemia of chronic disease 11 diabetic retinopathy 12 hypothyroidism 13 acute kidney injury Plan: Patient remains on high flow nasal cannula, currently at 11 L, satting 99%, and we decreased the FiO2 down to 8 L He is breathing very comfortably, clinically asymptomatic Vital signs have been stable, no fever or chills Status post 1 dose Toci Continue Decadron, continue current dose Lovenox, today's labs have been noted, Daily d-dimer Increase activity as tolerated, Once oxygen is down to 5 L or less may consider discharge home I performed a history & physical examination of the patient and discussed their management with my nurse practitioner, Iza Mccarthy. I reviewed the nurse practitioner's note and agree with the documented findings and plan of care. Lung sounds are positive for bibasilar crackles. The findings and the impression was discussed with the patient. I attest to the documentation by the nurse practitioner. Time with Patient: Less than 30
[2020-12-02 16:27] LABS: Glucose,Whole Blood 106 mg/dL (75-99)
[2020-12-02] MEDS: carvediloL 12.5 MG TAB PO SCH (16:31)
[2020-12-02] MEDS: allopurinoL 100 MG TAB PO SCH (16:47)
[2020-12-02] MEDS: LACTATED RINGERS 1,000 ML IV SCH (18:50)
--- NOTE | 2020-12-02 19:02 | PN ---
PROGRESS NOTE DATE OF SERVICE: 12/02/2020 REASON FOR FOLLOWUP: COVID-19 pneumonia. INTERVAL HISTORY: The patient is afebrile. The patient noticed to be slightly hypoxemic on high-flow oxygen. FiO2 is down to 8. The patient denies having any chest pain or any worsening cough. No abdominal pain, no diarrhea. PHYSICAL EXAMINATION: Blood pressure 92/54, pulse of 53, temperature is 97.8. He is 89% on 8 L high-flow oxygen. General description is an elderly male up in the bed in no distress. Respiratory system: Unlabored breathing, decreased breath sounds at the base, with no wheeze. Heart S1, S2. Regular rate and rhythm. Abdomen soft, no tenderness. LABS: BUN of 130, creatinine 2.78. DIAGNOSTIC IMPRESSION AND PLAN: Patient with COVID-19 infection in this patient currently continued with ( ) ascorbic acid, gentle hydration and monitor clinical course closely. MMODL / IJN: [id number] /
[2020-12-02 20:18] LABS: Glucose,Whole Blood 123 mg/dL (75-99)
[2020-12-02] MEDS: ATORVASTATIN 40 MG TAB PO SCH (20:53)
[2020-12-02] MEDS: TAMSULOSIN 0.4 MG CAP.ER.24H PO SCH (20:53)
[2020-12-03] MEDS: LACTATED RINGERS 1,000 ML IV SCH (05:35)
[2020-12-03] MEDS: LEVOTHYROXINE 100 MCG TAB PO SCH (05:35)
[2020-12-03 06:53] LABS: Glucose,Whole Blood 142 mg/dL (75-99)
[2020-12-03] MEDS: carvediloL 12.5 MG TAB PO SCH (07:06)
[2020-12-03] MEDS: CHOLECALCIFEROL 25 MCG (1000 IU) TABLET PO SCH (07:20)
[2020-12-03] MEDS: FAMOTIDINE 20 MG TAB PO SCH (07:21)
[2020-12-03] MEDS: INSULIN ASPART (NovoLOG) 100 UNIT/ML VIAL SQ SCH ×4 (07:21→21:17)
[2020-12-03] MEDS: ACETAMINOPHEN TAB 325 MG TAB PO PRN ×3 (07:21→19:48)
[2020-12-03] MEDS: ASPIRIN 81 MG PO SCH (07:21)
[2020-12-03] MEDS: ENOXAPARIN 40 MG/0.4 ML SYRINGE SQ SCH (07:21)
[2020-12-03] MEDS: REPAGLINIDE 1 MG TAB PO SCH ×2 (07:21→17:43)
[2020-12-03] MEDS: ZINC SULFATE 220 MG CAP PO SCH (07:21)
[2020-12-03] MEDS: ASCORBIC ACID 500 MG TAB PO SCH ×2 (07:21→19:48)
[2020-12-03] MEDS: DEXAMETHASONE SOD PHOSPHATE 10 MG/ML 1 ML VIAL IV SCH (07:21)
[2020-12-03 07:53] LABS: Anisocytosis Slight; Basophils % (A) 0 %; Eosinophils % (A) 0 %; HCT 20.7 % (39.0-53.0); Lymphocytes # (A) 0.4 k/uL (1.0-4.8); Lymphocytes % (A) 2 %; MCH 32.4 pg (25.0-35.0); MCHC 33.1 g/dL (31.0-37.0); MCV 97.8 fL (80.0-100.0); Macrocytosis Slight; Mean Platelet Volume 9.4; Monocytes # (A) 0.8 k/uL (0-1.0); Monocytes % (A) 4 %; Neutrophils # (A) 20.7 k/uL (1.3-7.7); Neutrophils % (A) 94 %; RBC 2.12 m/uL (4.30-5.90); RDW 18.1 % (11.5-15.5)
[2020-12-03 08:11] LABS: HGB 6.8 gm/dL (13.0-17.5); Platelet Count 138 k/uL (150-450)
[2020-12-03 08:49] LABS: ALT 28 U/L (4-49); AST 31 U/L (17-59); African American GFR (CKD) 22 (>60 ml/min/1.73 sqM); Albumin 2.3 g/dL (3.5-5.0); Albumin/Globulin Ratio 1.2; Alkaline Phosphatase 79 U/L (38-126); Anion Gap 14 mmol/L; C Reactive Protein 0.9 mg/dL (<1.0); Carbon Dioxide 18 mmol/L (22-30); Chloride 102 mmol/L (98-107); Glucose 110 mg/dL (74-99); LDH 1654 U/L (313-618); Non-African American GFR(CKD) 19 (>60 ml/min/1.73 sqM); Potassium 4.8 mmol/L (3.5-5.1); Sodium 134 mmol/L (137-145); Total Bilirubin 0.4 mg/dL (0.2-1.3); Total Protein 4.3 g/dL (6.3-8.2)
[2020-12-03 08:53] LABS: Calcium 6.5 mg/dL (8.4-10.2)
[2020-12-03 08:58] LABS: Blood Urea Nitrogen 136 mg/dL (9-20)
[2020-12-03 09:41] LABS: Anisocytosis Slight; HCT 21.4 % (39.0-53.0); Hypochromasia Slight; MCH 31.3 pg (25.0-35.0); MCHC 31.9 g/dL (31.0-37.0); MCV 98.3 fL (80.0-100.0); Macrocytosis Slight; Mean Platelet Volume 10.2; Platelet Count 106 k/uL (150-450); RBC 2.17 m/uL (4.30-5.90); RDW 18.5 % (11.5-15.5); WBC 22.1 k/uL (3.8-10.6)
[2020-12-03 09:42] LABS: HGB 6.8 gm/dL (13.0-17.5)
[2020-12-03] MEDS ORDERED: SODIUM CHLORIDE 0.9% 1,000 ML IV ONE (10:18)
[2020-12-03 11:27] LABS: Glucose,Whole Blood 149 mg/dL (75-99)
[2020-12-03] MEDS: INSULIN DETEMIR (LEVEMIR) 100 UNIT/ML SYR SQ SCH ×2 (11:47→21:00)
[2020-12-03] MEDS: FERROUS SULFATE 325 MG TAB PO SCH ×2 (11:48→17:18)
--- NOTE | 2020-12-03 14:02 | P.PN ---
Subjective Progress Note Date: 12/03/20 Principal diagnosis: This is a 75-year-old male seen in consultation because of chronic kidney disease, secondary diabetic nephropathy with a baseline creatinine from 2-2.7, acute kidney injury from COVID-19 pneumonia, creatinine peaked at 3.37. Currently he is on nasal cannula oxygen. States he is feeling about the same no nausea vomiting he denies any fever chills cough shortness of breath appetite is poor. He is admitted here on 11/19/2020. Yesterday because of low blood pressure at His Coreg down but his blood pressure remains low. Also he was anemic with hemoglobin of 6.8 and is being transfused at this time. Vital signs are stable.Urine output has not been documented He looks tired and weak and barely is able to speak Objective - Vital Signs Vital signs: Vital Signs Temp 96.3 F L 12/03/20 12:12 Pulse 68 12/03/20 12:12 Resp 16 12/03/20 12:12 BP 96/58 12/03/20 12:12 Pulse Ox 96 12/03/20 11:42 Intake & Output 12/02/20 12/03/20 12/03/20 18:59 06:59 18:59 Intake Total 0 Output Total 775 Balance -775 Intake: Blood Product 0 Rc As-1 Unit 0 [id number] Output: Urine 775 Other: Voiding Method External Catheter External Catheter External Catheter # Bowel Movements 1 On examination awake alert seems to be oriented. He is currently on nasal cannula oxygen and denies any shortness of breath HEENT exam no JVP neck is supple no facial asymmetry Lungs clear to auscultation with an occasional possible crackle at bases Good air entry bilaterally Heart sounds unremarkable for any murmur rub gallop Abdomen soft nontender Extremity exam reveals trace edema Neurologically profoundly weak but improved from yesterday - Labs CBC & Chem 7: 12/03/20 09:07 12/03/20 07:04 Labs: Abnormal Lab Results - Last 24 Hours (Table) 12/02/20 12/02/20 12/03/20 Range/Units 16:26 20:16 06:51 WBC (3.8-10.6) k/uL RBC (4.30-5.90) m/uL Hgb (13.0-17.5) gm/dL Hct (39.0-53.0) % RDW (11.5-15.5) % Plt Count (150-450) k/uL Neutrophils # (1.3-7.7) k/uL Lymphocytes # (1.0-4.8) k/uL D-Dimer (<0.60) mg/L FEU Sodium (137-145) mmol/L Carbon Dioxide (22-30) mmol/L BUN (9-20) mg/dL Creatinine (0.66-1.25) mg/dL Glucose (74-99) mg/dL POC Glucose (mg/dL) 106 H 123 H 142 H (75-99) mg/dL Calcium (8.4-10.2) mg/dL Lactate Dehydrogenase (313-618) U/L Total Protein (6.3-8.2) g/dL Albumin (3.5-5.0) g/dL Crossmatch 12/03/20 12/03/20 12/03/20 Range/Units 07:04 07:04 07:04 WBC 22.0 H (3.8-10.6) k/uL RBC 2.12 L (4.30-5.90) m/uL Hgb 6.8 L* D (13.0-17.5) gm/dL Hct 20.7 L (39.0-53.0) % RDW 18.1 H (11.5-15.5) % Plt Count 138 L (150-450) k/uL Neutrophils # 20.7 H (1.3-7.7) k/uL Lymphocytes # 0.4 L (1.0-4.8) k/uL D-Dimer 9.00 H (<0.60) mg/L FEU Sodium 134 L (137-145) mmol/L Carbon Dioxide 18 L (22-30) mmol/L BUN 136 H* (9-20) mg/dL Creatinine 3.03 H (0.66-1.25) mg/dL Glucose 110 H (74-99) mg/dL POC Glucose (mg/dL) (75-99) mg/dL Calcium 6.5 L (8.4-10.2) mg/dL Lactate Dehydrogenase 1654 H (313-618) U/L Total Protein 4.3 L (6.3-8.2) g/dL Albumin 2.3 L (3.5-5.0) g/dL Crossmatch 12/03/20 12/03/20 12/03/20 Range/Units 09:07 09:07 11:26 WBC 22.1 H (3.8-10.6) k/uL RBC 2.17 L (4.30-5.90) m/uL Hgb 6.8 L* (13.0-17.5) gm/dL Hct 21.4 L (39.0-53.0) % RDW 18.5 H (11.5-15.5) % Plt Count 106 L (150-450) k/uL Neutrophils # (1.3-7.7) k/uL Lymphocytes # (1.0-4.8) k/uL D-Dimer (<0.60) mg/L FEU Sodium (137-145) mmol/L Carbon Dioxide (22-30) mmol/L BUN (9-20) mg/dL Creatinine (0.66-1.25) mg/dL Glucose (74-99) mg/dL POC Glucose (mg/dL) 149 H (75-99) mg/dL Calcium (8.4-10.2) mg/dL Lactate Dehydrogenase (313-618) U/L Total Protein (6.3-8.2) g/dL Albumin (3.5-5.0) g/dL Crossmatch See Detail Assessment and Plan Plan: Impression 1. Acute kidney injury from COVID-19 pneumonia. Creatinine improved from 3.379 admission to 2 on 11/26/2020 but that has gone up again likely from prerenal causes. Blood pressure medication that would reduce blood pressure is still low. Creatinine went up from 2.59, to 2.78, 3.03 this morning 2. Chronic kidney disease diabetic nephropathy baseline creatinine about 2-2.7. Improving creatinine from admission and was 3.37, 3. Mild anemia hemoglobin is 10.3 on 11/30/2020, hemoglobin went down to 6.8 this morning and is being transfused 4. Diabetes mellitus controlled. Recommendation 1. Will reduce the Coreg because pressure is sometimes going down. Will reduce to 6.25 twice a day with hold orders for systolic less than 120 2. Will watch his labs. 3. Continue maintenance IV fluid lactated Ringer's at 50 an hour
--- NOTE | 2020-12-03 16:35 | P.PN ---
Subjective Progress Note Date: 12/03/20 Principal diagnosis: Acute COVID-19 pneumonia 75-year-old male patient, started having symptoms approximately a week ago when he started feeling a bit tired and fatigued. He subsequently developed fever and diminished appetite and some diarrhea. The patient tested positive for COVID 19 infection 4 days ago and this was again confirmed on 11/19/2020. The patient came into the emergency with weakness and shortness of breath. The patient is currently on 2 L of oxygen by nasal cannula. He is known to have CAD, previous bypass, aortic, chronic disease, diabetes mellitus and diabetic retinopathy and neuropathy and hypothyroidism and gout. Lactate was 0.7, there d-dimer was 0.6, white cell count was at 3.2 with a lymphopenia, creatinine was at 3.37 with a mean of 61. He is also on multivitamins. Chest x-ray showing diffuse bilateral pulmonary infiltrates. On today's evaluation of 4 021 the patient is currently on oxygen at 4 L per minute. The patient is quite comfortable. Pulse ox is around 95% and FiO2 can be obviously weaned off. The patient is being seen for a follow-up. The patient is currently being treated with Decadron 6 mg IV every 24 hours. The patient is also on Lovenox 40 mg subcu daily and the patient is also on Remdesivir day #2. No follow-up chest x-rays available from today. The rest of the labs are showing chronic kidney disease with a creatinine of 2.7. The patient has chronic metabolic acidosis which is of a non-anion gap type. On 11/22/2020 patient seen in follow-up. Is comfortable, still desat easily, feels tired, but no acute distress, today's labs have been reviewed, d-dimer 0.69, CRP is 35.6, no LDH. Has not had a chest x-ray, he is currently on 7 L, his pulse ox is 89%, no fever, remains on Remdesivir, today is day 3 of treatment. On 11/23/2020 patient is pretty stable, he remains on 5 L of oxygen, her pulse ox 89-90%, he is breathing comfortably, no worsening dyspnea, his 0.9, saline at 60 per hour, patient completed Remdesivir treatment, he remains on steroids, and prophylactic Lovenox. No worsening dyspnea, today's labs have been reviewed, d- dimer is 1.90, renal profile is slightly improved from yesterday, patient continues on IV fluids, no nausea vomiting or diarrhea, CRP is trending down, LDH with today is pending. On 11/25/2000 patient seen in follow-up on medical surgical floor, he is sitting up in the chair, appears to be breathing comfortably although his oxygen requirements have increased, and is currently on 15 L per high flow nasal cannula up from 12 L from yesterday, he denies any worsening dyspnea, lung sounds reveal diffuse bilateral crackles, no chest discomfort, no signs of any respiratory distress. No cough, no wheezing, today's chest x-ray shows bilateral mid to lower lung increased opacities, findings consistent with COVID- 19 pneumonia, the findings are stable in appearance. Follow-up inflammatory markers showed d-dimer of 19.16, LDH is up to 2028, CRP is 2.4. Patient has completed his Remdesivir course, she remains on daily dose of Decadron 6 mg, and Lovenox 30 mg daily, his renal function appears to be relatively stable, his bun is 64, and creatinine is 2.12 On 11/26/2020 patient seen in follow-up on medical surgical floor, he sitting up in the chair, he is breathing comfortably, he is currently down to 13 L, and his pulse ox is 90-94%, his been afebrile, overall she looks stable, he does not appear to be in any acute distress, he is a d-dimer has trended up, and on today's labs it is up to 30.3, and his Lovenox dose will be adjusted. Today's inflammatory markers are improving. He remains on daily dose IV Decadron 6 mg daily, Lovenox, multivitamins, and his IV fluids are infusing at a rate of 60 ML per hour, no new chest x-ray today, his kidney function shows slight improvement On 11/27/2000 patient seen in follow-up on medical surgical floor, he remains on high flow oxygen 15 L, and the nonrebreather mask, he does desat when he removes his nonrebreather mask down to 86% however he denies any dyspnea, he does not feel stressed at all, and looks very comfortable, he sitting up in the recliner, awake and alert, oriented 3, he is afebrile, hemodynamically has been stable, he has no specific complaints, and his today's chest x-ray shows cardiomegaly and low lung volumes with bilateral mid to lower lung reticular and confluent opacities consistent with COVID-19 pneumonia with no change from previousexam. Today's labs have been reviewed, white blood cell count is 5.45, hemoglobin is 9.3, no d-dimer today, but yesterday's d-dimer was quite elevated at 30.3, and his Lovenox dose was adjusted and increased to 40 mg twice a day, his electrolyte panel shows CO2 of 28.1, but prostate electrolytes are within normal limits, B1 is 84, creatinine is 2.2, his LDH is down to 687, improving, his CRP is 1.2 on today's labs. He continues on Decadron 6 mg daily, he is on Lovenox 40 mg twice a day, and he is receiving IV hydration at 60 ML per hour, nephrology is following On 11/28/2020 patient seen in follow-up on medical surgical floor, he is resting comfortably in bed, he is currently on 15 L high flow and 100% nonrebreather, he looks quite comfortable, he denies any shortness of breath, minimal cough, he is breathing comfortably, his pro-calcitonin level was low, his inflammatory markers were improving, his d-dimer was elevated on 11/26/2020 patient is on 40 mg of Lovenox twice daily, Lasix is at 40 mg every 12 hours patient is in negative fluid balance. No new chest x-ray today On 11/29/2000 patient seen in follow-up on medical surgical floor, is currently on 15 L per high flow nasal cannula, and 100 nonrebreather mask, and he is satting about 93%, he does not feel short of breath, he seems to be breathing very comfortably, he is afebrile, hemodynamically stable, his chest x-ray today shows low lung volumes with bilateral mid to lower lung reticular and confluent opacities consistent with COVID-19 pneumonia. Findings are similar to his previous chest x-ray, lower extremity Dopplers were completed and he was negative for DVT. His d-dimer is trending down, and is down to 16.0. The rest of his lab work has been reviewed, showing white blood cell count of 8.7, hemoglobin of 10.5, sodium is 136, potassium is 4.5, chloride is 98, BUN of 108, and creatinine is 3.2, his calcitonin level was negative at 0.10, his inflammatory markers were improving since admission. No nausea vomiting or diarrhea, and patient continues on daily dose of IV Decadron 6 mg, continues on Lovenox 40 mg twice daily, she was given a dose of Lasix yesterday and he was started on maintenance dose of IV Lasix On 11/30/2020 patient seen in follow-up on medical surgical floor, he is resting comfortably in bed, currently off the nonrebreather mask, on 15 L per high flow nasal cannula with his pulse ox is 90-91%, he looks very comfortable, breathing comfortably, no worsening dyspnea. Cooperative chest discomfort, no cough. No fever or chills. No acute events overnight, patient did receive 1 dose of Toci yesterday 720 mg, he remains on Lovenox 40 mg twice a day, and daily dose Decadron, today's labs have been reviewed, showing white blood cell, 10.1, hemoglobin of 10.3, d-dimer is trending down, down to 11.4, electrolytes are within normal limits, renal profile shows some improvement, pro-Joshua was negative, inflammatory markers are trending down, patient denies any specific complaints On 12/01/2020 patient seen in follow-up on medical surgical floor, is currently on 15 L per high flow nasal cannula and nonrebreather mask, and his pulse ox is 100%, he is breathing very comfortably, denies any cough, denies any chest pain, has had no fever or chills, no nausea vomiting diarrhea, no abdominal pain, no new chest x-rays, his labs have been reviewed, d-dimer today is 12.5, electrolytes are unremarkable, his renal profile slightly improved, his BUN is 113, and creatinine is 2.59. On 12/02/2020 patient seen in follow-up on medical surgical floor, he is currently back on 11 L of oxygen resting comfortably in bed, in comfortably, in his pulse ox was 99%, we dropped the FiO2 down to 8 L, and we instructed the nursing staff to continue weaning it to maintain O2 saturations at or above 90%, patient has no specific complaints, no cough, no chest discomfort, no fever, no chills no headaches, no nausea vomiting or diarrhea. Renal function continues to be impaired, and nephrology is following, his BUN is 1:30, and creatinine is 2.70, electrolytes were unremarkable on today's labs. No new chest x-ray today. Patient remains on IV Decadron 6 mg, and Lovenox is currently at 40 mg twice daily. Follow-up d-dimer is pending for today. The patient is seen today 12/03/2020 follow-up on the regular medical floor. He is currently resting fairly comfortably in bed. They did call and A team on the patient earlier this morning. He had some hypotension. He was found to have a hemoglobin of 6.8 down from 10.3. No active GI bleeding noted. He was given 1 L fluid resuscitation and is receiving 2 units of packed red blood cells. Blood pressure is currently stable. He is still requiring oxygen at 10 L high flow nasal cannula. D-dimer 9.00. White count 22.1. Platelets 106. Sodium 134. Potassium 4.8. BUN 136. Creatinine 3.03. Glucose 149. LDH 1654. C-reactive protein 0.9. He remains on Lovenox, dexamethasone, vitamin supplements. Objective - Vital Signs Vital signs: Vital Signs Temp 96.5 F L 12/03/20 15:16 Pulse 74 12/03/20 15:16 Resp 16 12/03/20 15:16 BP 112/68 12/03/20 15:16 Pulse Ox 97 12/03/20 15:33 Intake & Output 12/02/20 12/03/20 12/03/20 18:59 06:59 18:59 Intake Total 310 Output Total 775 Balance -465 Intake: Blood Product 310 Rc As-1 Unit 310 [id number] Output: Urine 775 Other: Voiding Method External Catheter External Catheter External Catheter # Bowel Movements 1 - Exam GENERAL EXAM: Alert, pale, weak 75-year-old gentleman, on 10 L high flow nasal cannula, fairly, comfortable in no apparent distress. HEAD: Normocephalic. EYES: Normal reaction of pupils, equal size. NOSE: Clear with pink turbinates. THROAT: No erythema or exudates. NECK: No masses, no JVD. CHEST: No chest wall deformity. LUNGS: Equal air entry with crackles in the bilateral posterior bases. CVS: S1 and S2 normal with no audible murmur, regular rhythm. ABDOMEN: No hepatosplenomegaly, normal bowel sounds, no guarding or rigidity. SPINE: No scoliosis or deformity SKIN: No rashes CENTRAL NERVOUS SYSTEM: No focal deficits, tone is normal in all 4 extremities. EXTREMITIES: There is no peripheral edema. No clubbing, no cyanosis. Peripheral pulses are intact. - Labs CBC & Chem 7: 12/03/20 09:07 12/03/20 07:04 Labs: Abnormal Lab Results - Last 24 Hours (Table) 12/02/20 12/03/20 12/03/20 Range/Units 20:16 06:51 07:04 WBC (3.8-10.6) k/uL RBC (4.30-5.90) m/uL Hgb (13.0-17.5) gm/dL Hct (39.0-53.0) % RDW (11.5-15.5) % Plt Count (150-450) k/uL Neutrophils # (1.3-7.7) k/uL Lymphocytes # (1.0-4.8) k/uL D-Dimer 9.00 H (<0.60) mg/L FEU Sodium (137-145) mmol/L Carbon Dioxide (22-30) mmol/L BUN (9-20) mg/dL Creatinine (0.66-1.25) mg/dL Glucose (74-99) mg/dL POC Glucose (mg/dL) 123 H 142 H (75-99) mg/dL Calcium (8.4-10.2) mg/dL Lactate Dehydrogenase (313-618) U/L Total Protein (6.3-8.2) g/dL Albumin (3.5-5.0) g/dL Crossmatch 12/03/20 12/03/20 12/03/20 Range/Units 07:04 07:04 09:07 WBC 22.0 H 22.1 H (3.8-10.6) k/uL RBC 2.12 L 2.17 L (4.30-5.90) m/uL Hgb 6.8 L* D 6.8 L* (13.0-17.5) gm/dL Hct 20.7 L 21.4 L (39.0-53.0) % RDW 18.1 H 18.5 H (11.5-15.5) % Plt Count 138 L 106 L (150-450) k/uL Neutrophils # 20.7 H (1.3-7.7) k/uL Lymphocytes # 0.4 L (1.0-4.8) k/uL D-Dimer (<0.60) mg/L FEU Sodium 134 L (137-145) mmol/L Carbon Dioxide 18 L (22-30) mmol/L BUN 136 H* (9-20) mg/dL Creatinine 3.03 H (0.66-1.25) mg/dL Glucose 110 H (74-99) mg/dL POC Glucose (mg/dL) (75-99) mg/dL Calcium 6.5 L (8.4-10.2) mg/dL Lactate Dehydrogenase 1654 H (313-618) U/L Total Protein 4.3 L (6.3-8.2) g/dL Albumin 2.3 L (3.5-5.0) g/dL Crossmatch 12/03/20 12/03/20 Range/Units 09:07 11:26 WBC (3.8-10.6) k/uL RBC (4.30-5.90) m/uL Hgb (13.0-17.5) gm/dL Hct (39.0-53.0) % RDW (11.5-15.5) % Plt Count (150-450) k/uL Neutrophils # (1.3-7.7) k/uL Lymphocytes # (1.0-4.8) k/uL D-Dimer (<0.60) mg/L FEU Sodium (137-145) mmol/L Carbon Dioxide (22-30) mmol/L BUN (9-20) mg/dL Creatinine (0.66-1.25) mg/dL Glucose (74-99) mg/dL POC Glucose (mg/dL) 149 H (75-99) mg/dL Calcium (8.4-10.2) mg/dL Lactate Dehydrogenase (313-618) U/L Total Protein (6.3-8.2) g/dL Albumin (3.5-5.0) g/dL Crossmatch See Detail Assessment and Plan Assessment: 1 Acute COVID 19 related pneumonia with secondary shortness of breath and hypoxic respiratory failure the patient's symptoms of generalized weakness and dehydration, currently on 4 L of oxygen by nasal cannula, patient was started on Remdesivir on 11/20/2020, Toci on 11/29/2020 2 Acute hypoxic respiratory failure currently on 11 L of oxygen by nasal cannula 3 Acute anemia with a hemoglobin of 6.8 down from 10.3. Receiving 2 units packed red blood cells. 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 Medley He did require a liter of fluid resuscitation +2 units of packed blood cells Hemoglobin 6.8, no active bleeding noted D-dimer trending down currently 9.0 Lovenox decreased to 40 mg subcu daily GI consult if any further issues with anemia Titrate the FiO2 as tolerated Continue dexamethasone, vitamin supplement We will continue to follow I, the cosigning physician, performed a history & physical examination of the patient. Lungs sounds crackles in the bilateral posterior bases. Maintaining good O2 saturations in the 90s on 10 L high flow nasal cannula. I discussed the assessment and plan of care with my nurse practitioner, Abigail Brennan. I attest to the above note as dictated by her.
--- NOTE | 2020-12-03 16:51 | PN ---
PROGRESS NOTE DATE OF SERVICE: 12/03/2020 REASON FOR FOLLOWUP: COVID-19 infection. INTERVAL HISTORY: Patient is currently afebrile. The patient is breathing comfortably. However, complaining of feeling weak and tired. Also noticed to have low hemoglobin. Getting a blood transfusion. No chest pain. No abdominal pain. No diarrhea. PHYSICAL EXAMINATION: Blood pressure is 105/64, pulse of 77. Temperature is 97.4. He is 92% on 10 L nasal cannula oxygen. General description is an elderly male lying in bed in no distress. Respiratory system: Unlabored breathing, clear to auscultation anteriorly. Heart S1, S2. Regular rate and rhythm. ABDOMEN: Soft. No tenderness. LAB: BUN of 136, creatinine 3.03. DIAGNOSTIC IMPRESSION AND PLAN: Patient with acute COVID-19 infection. This patient has received remdisivir , currently on dexamethasone, Lovenox, zinc, ascorbic acid along with respiratory support and monitor clinical course closely. MMODL / IJN: [id number] / MTDD
[2020-12-03 16:58] LABS: Glucose,Whole Blood 129 mg/dL (75-99)
[2020-12-03] MEDS: carvediloL 6.25 MG TAB PO SCH (17:00)
[2020-12-03] MEDS: allopurinoL 100 MG TAB PO SCH (17:18)
--- NOTE | 2020-12-03 17:37 | P.PN ---
Subjective Progress Note Date: 12/02/20 Principal diagnosis: Acute hypoxic respiratory failure due to COVID Pneumonia Mr. Pena is a 75-year-old male with a past medical history of hypothyroidism, Drs. Hoskins, gout, peripheral neuropathy, diabetic retinopathy, CK 80, coronary artery disease status post CABG and AICD coming in with a chief complaint of difficulty in breathing. Patient was tested positive for COVID-19. Patient was continued on Decadron, Lovenox, multivitamins along with respiratory support. He also had lower extremity Doppler that was negative for DVT. On 12/02/2020 - patient was seen and examined at the bedside. He is lying comfortably in bed appears to be in no acute distress. Patient complained of left thigh pain, he denied any swelling of his lower extremity. He was slightly confused and did not know where he was. He denied having any chest pain or palpitations. No headache nausea or vomiting. On reviewing the vitals temperature of 97.4, heart rate 50s to 60s, respiratory rate 20, blood pressure 08/23/2064, saturating at 93% on 4 L high flow nasal cannula. On reviewing the labs sodium 136, potassium 4.2, chloride 102, bicarbonate 23, BUN 1:30, creatinine 2.78. Medications have been reviewed Objective - Vital Signs Vital signs: Vital Signs Temp 96.8 F L 12/02/20 09:51 Pulse 51 L 12/02/20 09:51 Resp 16 12/02/20 09:51 BP 98/59 12/02/20 09:51 Pulse Ox 97 12/02/20 09:51 Intake & Output 12/01/20 12/02/20 12/02/20 18:59 06:59 18:59 Other: Voiding Method External Catheter External Catheter # Voids 1 - Exam GENERAL: The patient is alert and oriented x2- 3, not in any acute distress. Chronically ill-appearing HEENT: Pupils are round and equally reacting to light. EOMI. No scleral icterus. No conjunctival pallor. CARDIOVASCULAR: S1 and S2 present. No murmurs, rubs, or gallops. PULMONARY: Bilateral rhonchi with basal crackles ABDOMEN: Soft, nontender, nondistended, normoactive bowel sounds. No palpable organomegaly. MUSCULOSKELETAL: No joint swelling or deformity. EXTREMITIES: No cyanosis, clubbing, or pedal edema. Left thigh exam no swelling or tenderness. NEUROLOGICAL: Gross neurological examination did not reveal any focal deficits. SKIN: No rashes. no petechiae. - Labs CBC & Chem 7: 12/03/20 09:07 12/03/20 07:04 Labs: Abnormal Lab Results - Last 24 Hours (Table) 12/01/20 12/01/20 12/01/20 Range/Units 07:53 16:45 20:25 Sodium 136 L (137-145) mmol/L BUN 113 H* (9-20) mg/dL Creatinine 2.59 H (0.66-1.25) mg/dL BUN/Creatinine Ratio 41.00 H (12.00-20.00) Ratio Glucose 100 H (74-99) mg/dL POC Glucose (mg/dL) 126 H 169 H (75-99) mg/dL Calcium 7.6 L (8.4-10.2) mg/dL Lactate Dehydrogenase 1723 H (313-618) U/L 12/02/20 12/02/20 12/02/20 Range/Units 06:50 07:17 11:41 Sodium 136 L (137-145) mmol/L BUN 130 H* (9-20) mg/dL Creatinine 2.78 H (0.66-1.25) mg/dL BUN/Creatinine Ratio (12.00-20.00) Ratio Glucose (74-99) mg/dL POC Glucose (mg/dL) 105 H 110 H (75-99) mg/dL Calcium 6.9 L (8.4-10.2) mg/dL Lactate Dehydrogenase (313-618) U/L Assessment and Plan Assessment: ASSESSMENT Acute hypoxic respiratory failure secondary to COVID-19 pneumonia Elevated inflammatory markers Acute kidney injury CK D with diabetic nephropathy and neuropathy Pericarditis mellitus Troponin leak CAD with Coronary artery bypass grafting History of AICD placement Any of chronic disease Hypothyroidism History of gout PLAN: Patient Remdesivir on 11/20/2020, Toci on 11/29/2020. Patient to be continued on Decadron, Lovenox. Patient's BUN and creatinine still elevated, nephrology on board and following closely. We will follow up on inflammatory markers. Continue with GI DVT prophylaxis. Overall prognosis is guarded due to multiple chronic medical conditions. Further recommendations to follow depending on the progress of the patient.
--- NOTE | 2020-12-03 17:54 | P.PN ---
Subjective Progress Note Date: 12/03/20 Principal diagnosis: Acute hypoxic respiratory failure due to COVID Pneumonia Mr. Pena is a 75-year-old male with a past medical history of hypothyroidism, Drs. Hoskins, gout, peripheral neuropathy, diabetic retinopathy, CK 80, coronary artery disease status post CABG and AICD coming in with a chief complaint of difficulty in breathing. Patient was tested positive for COVID-19. Patient was continued on Decadron, Lovenox, multivitamins along with respiratory support. He also had lower extremity Doppler that was negative for DVT. On 12/02/2020 - patient was seen and examined at the bedside. He is lying comfortably in bed appears to be in no acute distress. Patient complained of left thigh pain, he denied any swelling of his lower extremity. He was slightly confused and did not know where he was. He denied having any chest pain or palpitations. No headache nausea or vomiting. On reviewing the vitals temperature of 97.4, heart rate 50s to 60s, respiratory rate 20, blood pressure 08/23/2064, saturating at 93% on 4 L high flow nasal cannula. On reviewing the labs sodium 136, potassium 4.2, chloride 102, bicarbonate 23, BUN 1:30, creatinine 2.78. On 12/03/2020 - earlier this morning [facility] team was activated as the patient had hypotension and hypothermia. Patient's temperature slowly trended down, he was given a beta boom to get his temperature up. And on repeating labs his hemoglobin was found to be 6.8 down from 10.3. Patient was given 1 L of fluid and 2 units of PRBCs and his blood pressure has been slowly trending up. He is still requiring 10 L of high flow nasal cannula. On talking to him, he states that he is in the hospital but is confused and could not have a full conversation with him. On reviewing labs white count of 22, hemoglobin 6.8, platelets 106. Sodium 134, potassium 4.8, chloride 102, bicarb 18, BUN 136, creatinine 3.03 LDH 1654, CRP 0.9 AST 31, ALT 28, alkaline phosphatase 79. Active Medications Acetaminophen (Acetaminophen Tab 325 Mg Tab) 650 mg PO Q6HR PRN PRN Reason: Fever and/ or Pain Last Admin: 12/03/20 17:18 Dose: 650 mg Documented by: Allopurinol (Allopurinol 100 Mg Tab) 100 mg PO W/SUPPER [facility] Last Admin: 12/03/20 17:18 Dose: 100 mg Documented by: Alprazolam (Alprazolam 0.25 Mg Tab) 0.25 mg PO Q8HR PRN PRN Reason: Anxiety Last Admin: 12/02/20 20:53 Dose: 0.25 mg Documented by: Ascorbic Acid (Ascorbic Acid 500 Mg Tab) 500 mg PO BID [facility] Last Admin: 12/03/20 07:21 Dose: 500 mg Documented by: Aspirin (Aspirin 81 Mg) 81 mg PO DAILY [facility] Last Admin: 12/03/20 07:21 Dose: 81 mg Documented by: Atorvastatin Calcium (Atorvastatin 40 Mg Tab) 40 mg PO HS [facility] Last Admin: 12/02/20 20:53 Dose: 40 mg Documented by: Carvedilol (Carvedilol 6.25 Mg Tab) 6.25 mg PO BID-W/MEALS [facility] Last Admin: 12/03/20 17:00 Dose: Not Given Documented by: Cholecalciferol (Cholecalciferol 25 Mcg (1000 Iu) Tablet) 100 mcg PO DAILY [facility] Last Admin: 12/03/20 07:20 Dose: 100 mcg Documented by: Darbepoetin Rizwan (Darbepoetin Rizwan 40 Mcg/0.4 Ml Syringe) 40 mcg SQ Q7D [facility] Last Admin: 11/28/20 11:58 Dose: 40 mcg Documented by: Dexamethasone Sodium Phosphate (Dexamethasone Sod Phosphate 10 Mg/Ml 1 Ml Vial) 6 mg IV DAILY [facility] Last Admin: 12/03/20 07:21 Dose: 6 mg Documented by: Enoxaparin Sodium (Enoxaparin 40 Mg/0.4 Ml Syringe) 40 mg SQ DAILY [facility] Famotidine (Famotidine 20 Mg Tab) 20 mg PO DAILY [facility] Last Admin: 12/03/20 07:21 Dose: 20 mg Documented by: Ferrous Sulfate (Ferrous Sulfate 325 Mg Tab) 325 mg PO BID@1200,1800 [facility] Last Admin: 12/03/20 17:18 Dose: 325 mg Documented by: Lactated Ringer's (Lactated Ringers) 1,000 mls @ 50 mls/hr IV .Q20H [facility] Last Admin: 12/03/20 05:35 Dose: 50 mls/hr Documented by: Insulin Aspart (Insulin Aspart (Novolog) 100 Unit/Ml Vial) 0 unit SQ ACHS [facility]; Protocol Last Admin: 12/03/20 16:59 Dose: Not Given Documented by: Insulin Detemir (Insulin Detemir (Levemir) 100 Unit/Ml Syr) 35 unit SQ DAILY@0700 [facility] Last Admin: 12/03/20 11:47 Dose: Not Given Documented by: Insulin Detemir (Insulin Detemir (Levemir) 100 Unit/Ml Syr) 35 unit SQ [facility] Last Admin: 12/02/20 20:53 Dose: Not Given Documented by: Levothyroxine Sodium (Levothyroxine 100 Mcg Tab) 100 mcg PO 0630 [facility] Last Admin: 12/03/20 05:35 Dose: 100 mcg Documented by: Naloxone HCl (Naloxone 0.4 Mg/Ml 1 Ml Vial) 0.2 mg IV Q2M PRN PRN Reason: Opioid Reversal Repaglinide (Repaglinide 1 Mg Tab) 0.25 mg PO AC-BID [facility] Last Admin: 12/03/20 17:43 Dose: 0.25 mg Documented by: Tamsulosin HCl (Tamsulosin 0.4 Mg Cap.Er.24h) 0.4 mg PO [facility] Last Admin: 12/02/20 20:53 Dose: 0.4 mg Documented by: Zinc Sulfate (Zinc Sulfate 220 Mg Cap) 220 mg PO DAILY [facility] Last Admin: 12/03/20 07:21 Dose: 220 mg Documented by: Objective - Vital Signs Vital signs: Vital Signs Temp 96.5 F L 12/03/20 15:16 Pulse 74 12/03/20 15:16 Resp 16 12/03/20 15:16 BP 112/68 12/03/20 15:16 Pulse Ox 66 L 12/03/20 15:16 Intake & Output 12/02/20 12/03/20 12/03/20 18:59 06:59 18:59 Intake Total 310 Output Total 775 Balance -465 Intake: Blood Product 310 Rc As-1 Unit 310 [id number] Output: Urine 775 Other: Voiding Method External Catheter External Catheter External Catheter # Bowel Movements 1 - Exam GENERAL: The patient is alert and oriented x2- 3, not in any acute distress. In a bear hugger HEENT: Pupils are round and equally reacting to light. EOMI. No scleral icterus.. CARDIOVASCULAR: S1 and S2 present. No murmurs, rubs, or gallops. PULMONARY: Bilateral rhonchi with basal crackles ABDOMEN: Soft, nontender, nondistended, normoactive bowel sounds. No palpable organomegaly. MUSCULOSKELETAL: No joint swelling or deformity. EXTREMITIES: No cyanosis, clubbing, or pedal edema. NEUROLOGICAL: Gross neurological examination did not reveal any focal deficits. SKIN: No rashes. no petechiae. - Labs CBC & Chem 7: 12/04/20 13:44 12/04/20 07:46 Labs: Abnormal Lab Results - Last 24 Hours (Table) 12/02/20 12/02/20 12/03/20 Range/Units 16:26 20:16 06:51 WBC (3.8-10.6) k/uL RBC (4.30-5.90) m/uL Hgb (13.0-17.5) gm/dL Hct (39.0-53.0) % RDW (11.5-15.5) % Plt Count (150-450) k/uL Neutrophils # (1.3-7.7) k/uL Lymphocytes # (1.0-4.8) k/uL D-Dimer (<0.60) mg/L FEU Sodium (137-145) mmol/L Carbon Dioxide (22-30) mmol/L BUN (9-20) mg/dL Creatinine (0.66-1.25) mg/dL Glucose (74-99) mg/dL POC Glucose (mg/dL) 106 H 123 H 142 H (75-99) mg/dL Calcium (8.4-10.2) mg/dL Lactate Dehydrogenase (313-618) U/L Total Protein (6.3-8.2) g/dL Albumin (3.5-5.0) g/dL Crossmatch 12/03/20 12/03/20 12/03/20 Range/Units 07:04 07:04 07:04 WBC 22.0 H (3.8-10.6) k/uL RBC 2.12 L (4.30-5.90) m/uL Hgb 6.8 L* D (13.0-17.5) gm/dL Hct 20.7 L (39.0-53.0) % RDW 18.1 H (11.5-15.5) % Plt Count 138 L (150-450) k/uL Neutrophils # 20.7 H (1.3-7.7) k/uL Lymphocytes # 0.4 L (1.0-4.8) k/uL D-Dimer 9.00 H (<0.60) mg/L FEU Sodium 134 L (137-145) mmol/L Carbon Dioxide 18 L (22-30) mmol/L BUN 136 H* (9-20) mg/dL Creatinine 3.03 H (0.66-1.25) mg/dL Glucose 110 H (74-99) mg/dL POC Glucose (mg/dL) (75-99) mg/dL Calcium 6.5 L (8.4-10.2) mg/dL Lactate Dehydrogenase 1654 H (313-618) U/L Total Protein 4.3 L (6.3-8.2) g/dL Albumin 2.3 L (3.5-5.0) g/dL Crossmatch 12/03/20 12/03/20 12/03/20 Range/Units 09:07 09:07 11:26 WBC 22.1 H (3.8-10.6) k/uL RBC 2.17 L (4.30-5.90) m/uL Hgb 6.8 L* (13.0-17.5) gm/dL Hct 21.4 L (39.0-53.0) % RDW 18.5 H (11.5-15.5) % Plt Count 106 L (150-450) k/uL Neutrophils # (1.3-7.7) k/uL Lymphocytes # (1.0-4.8) k/uL D-Dimer (<0.60) mg/L FEU Sodium (137-145) mmol/L Carbon Dioxide (22-30) mmol/L BUN (9-20) mg/dL Creatinine (0.66-1.25) mg/dL Glucose (74-99) mg/dL POC Glucose (mg/dL) 149 H (75-99) mg/dL Calcium (8.4-10.2) mg/dL Lactate Dehydrogenase (313-618) U/L Total Protein (6.3-8.2) g/dL Albumin (3.5-5.0) g/dL Crossmatch See Detail Assessment and Plan Assessment: ASSESSMENT Acute hypoxic respiratory failure secondary to COVID-19 pneumonia Hypothermia Hypotension Acute blood loss anemia ? 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 Patient was hypotensive and hypothermic this morning. His hemoglobin dropped to 6.8, patient currently receiving a unit of blood. [facility]. Patient's dose of Lovenox has been decreased to 40 mg daily from twice a day. Will obtain blood cultures, empirically started on vancomycin and cefepime. Will follow inflammatory markers and continue to monitor CBC and electrolytes. Patient to be continued on Decadron, Lovenox. Patient's BUN and creatinine still elevated, nephrology on board and following closely. We will follow up on inflammatory markers. Continue with GI DVT prophylaxis. Overall prognosis is guarded due to multiple chronic medical conditions. Further recommendations to follow depending on the progress of the patient.
[2020-12-03] MEDS: ATORVASTATIN 40 MG TAB PO SCH (19:48)
[2020-12-03] MEDS: TAMSULOSIN 0.4 MG CAP.ER.24H PO SCH (19:48)
[2020-12-03] MEDS: ALPRAZolam 0.25 MG TAB PO PRN (19:49)
[2020-12-03] MEDS ORDERED: VANCOMYCIN IV PER PHARMACY 1 EACH MISC MISCELLANE PRN (19:50)
[2020-12-03 20:08] LABS: Glucose,Whole Blood 191 mg/dL (75-99)
[2020-12-03] MEDS ORDERED: VANCOMYCIN 1,500 MG in SODIUM CHLORIDE 0.9% 250 ML IVPB ONE (21:00)
[2020-12-04] MEDS: LACTATED RINGERS 1,000 ML IV SCH (02:42)
[2020-12-04] MEDS: LEVOTHYROXINE 100 MCG TAB PO SCH (05:36)
[2020-12-04] MEDS: ALPRAZolam 0.25 MG TAB PO PRN ×2 (05:36→21:26)
[2020-12-04] MEDS: ACETAMINOPHEN TAB 325 MG TAB PO PRN (05:36)
[2020-12-04 07:05] LABS: Glucose,Whole Blood 190 mg/dL (75-99)
[2020-12-04] MEDS: carvediloL 6.25 MG TAB PO SCH ×2 (07:41→16:46)
[2020-12-04] MEDS: ZINC SULFATE 220 MG CAP PO SCH (07:44)
[2020-12-04] MEDS: FAMOTIDINE 20 MG TAB PO SCH (07:44)
[2020-12-04] MEDS: ASPIRIN 81 MG PO SCH (07:44)
[2020-12-04] MEDS: ASCORBIC ACID 500 MG TAB PO SCH ×2 (07:44→21:20)
[2020-12-04] MEDS: CHOLECALCIFEROL 25 MCG (1000 IU) TABLET PO SCH (07:44)
[2020-12-04] MEDS: INSULIN ASPART (NovoLOG) 100 UNIT/ML VIAL SQ SCH ×4 (07:46→21:19)
[2020-12-04] MEDS: INSULIN DETEMIR (LEVEMIR) 100 UNIT/ML SYR SQ SCH ×2 (07:47→21:19)
[2020-12-04] MEDS: REPAGLINIDE 1 MG TAB PO SCH ×2 (07:48→16:53)
[2020-12-04] MEDS: DEXAMETHASONE SOD PHOSPHATE 10 MG/ML 1 ML VIAL IV SCH (07:49)
[2020-12-04 09:00] LABS: ALT 29 U/L (4-49); AST 38 U/L (17-59); African American GFR (CKD) 20 (>60 ml/min/1.73 sqM); Albumin 2.1 g/dL (3.5-5.0); Albumin/Globulin Ratio 1.2; Alkaline Phosphatase 69 U/L (38-126); Anion Gap 10 mmol/L; Carbon Dioxide 15 mmol/L (22-30); Chloride 106 mmol/L (98-107); Globulin 1.8 g/dL; Glucose 151 mg/dL (74-99); Non-African American GFR(CKD) 17 (>60 ml/min/1.73 sqM); Sodium 131 mmol/L (137-145); Total Bilirubin 0.4 mg/dL (0.2-1.3); Total Protein 3.9 g/dL (6.3-8.2)
[2020-12-04] MEDS ORDERED: ENOXAPARIN 40 MG/0.4 ML SYRINGE SQ SCH (09:00)
[2020-12-04 09:11] LABS: Blood Urea Nitrogen 148 mg/dL (9-20); Calcium 5.9 mg/dL (8.4-10.2)
[2020-12-04 11:59] LABS: Glucose,Whole Blood 200 mg/dL (75-99)
[2020-12-04] MEDS: FERROUS SULFATE 325 MG TAB PO SCH ×2 (12:04→16:54)
[2020-12-04 12:52] LABS: Basophils # (A) 0.01 X 10*3/uL (0.00-0.10); Basophils % (A) 0 %; Eosinophils # (A) 0 X 10*3/uL (0.04-0.35); Eosinophils % (A) 0 %; HCT 18.2 % (39.6-50.0); Lymphocytes # (A) 0.48 X 10*3/uL (0.90-5.00); MCH 31.9 pg (27.0-32.0); MCV 96.8 fL (80.0-97.0); Mean Platelet Volume 13.6 fL (9.5-12.2); Monocytes # (A) 1.01 X 10*3/uL (0.20-1.00); Monocytes % (A) 4.3 %; Neutrophils # (A) 21.55 X 10*3/uL (1.80-7.70); Neutrophils % (A) 91.3 %; Platelet Count 93 X 10*3/uL (140-440); RBC 1.88 X 10*6/uL (4.40-5.60); RDW 17.9 % (11.5-14.5); WBC 23.62 X 10*3/uL (4.50-10.00)
[2020-12-04] MEDS ORDERED: CEFEPIME 1 GM in SODIUM CHLORIDE 0.9% 50 ML IVPB ONE (13:15)
[2020-12-04] MEDS ORDERED: SODIUM BICARB 8.4% 50 ML SYR (1 MEQ/ML) IV STA (13:56)
--- NOTE | 2020-12-04 13:59 | P.PN ---
Subjective Patient is seen in follow for acute kidney injury on chronic kidney disease. Renal function worsening. Creatinine 3.36 today. Hemoglobin 6.0 today. No active bleeding. Currently on 7 L high flow cannula. Blood pressure on the lower side. Temperature 95.4F this morning. General: The patient appeared well nourished and normally developed. HEENT: Head exam is unremarkable. Neck is without jugular venous distension. LUNGS: Breath sounds decreased. HEART: Rate and Rhythm are regular. ABDOMEN: Soft, nondistended. EXTREMITITES: No edema. Objective - Vital Signs Vital signs: Vital Signs Temp 95.4 F L 12/04/20 10:00 Pulse 60 12/04/20 10:00 Resp 16 12/04/20 10:00 BP 94/53 12/04/20 10:00 Pulse Ox 91 L 12/04/20 10:00 Intake & Output 12/03/20 12/04/20 12/04/20 18:59 06:59 18:59 Intake Total 310 300 Output Total 775 300 Balance -465 0 Intake: Oral 300 Blood Product 310 Rc As-1 Unit 310 [id number] Output: Urine 775 300 Other: Voiding Method External Catheter External Catheter External Catheter - Labs CBC & Chem 7: 12/04/20 07:46 12/04/20 07:46 Labs: Abnormal Lab Results - Last 24 Hours (Table) 12/03/20 12/03/20 12/03/20 Range/Units 09:07 16:57 20:07 WBC (4.50-10.00) X 10*3/uL RBC (4.40-5.60) X 10*6/uL Hgb (13.0-17.0) g/dL Hct (39.6-50.0) % RDW (11.5-14.5) % Plt Count (140-440) X 10*3/uL MPV (9.5-12.2) fL Absolute Nucleated RBC (0.00-0.00) X 10*3/uL Immature Gran # (0.00-0.04) X 10*3/uL Neutrophils # (1.80-7.70) X 10*3/uL Lymphocytes # (0.90-5.00) X 10*3/uL Monocytes # (0.20-1.00) X 10*3/uL Eosinophils # (0.04-0.35) X 10*3/uL NRBC/100 WBC Diff (0.0-0.0) /100 WBCS Sodium (137-145) mmol/L Carbon Dioxide (22-30) mmol/L BUN (9-20) mg/dL Creatinine (0.66-1.25) mg/dL Glucose (74-99) mg/dL POC Glucose (mg/dL) 129 H 191 H (75-99) mg/dL Calcium (8.4-10.2) mg/dL Total Protein (6.3-8.2) g/dL Albumin (3.5-5.0) g/dL Crossmatch See Detail 12/04/20 12/04/20 12/04/20 Range/Units 07:03 07:46 07:46 WBC 23.62 H (4.50-10.00) X 10*3/uL RBC 1.88 L (4.40-5.60) X 10*6/uL Hgb 6.0 L* (13.0-17.0) g/dL Hct 18.2 L* (39.6-50.0) % RDW 17.9 H (11.5-14.5) % Plt Count 93 L (140-440) X 10*3/uL MPV 13.6 H (9.5-12.2) fL Absolute Nucleated RBC 0.02 H (0.00-0.00) X 10*3/uL Immature Gran # 0.57 H (0.00-0.04) X 10*3/uL Neutrophils # 21.55 H (1.80-7.70) X 10*3/uL Lymphocytes # 0.48 L (0.90-5.00) X 10*3/uL Monocytes # 1.01 H (0.20-1.00) X 10*3/uL Eosinophils # 0 L (0.04-0.35) X 10*3/uL NRBC/100 WBC Diff 0.1 H (0.0-0.0) /100 WBCS Sodium 131 L (137-145) mmol/L Carbon Dioxide 15 L (22-30) mmol/L BUN 148 H* (9-20) mg/dL Creatinine 3.36 H (0.66-1.25) mg/dL Glucose 151 H (74-99) mg/dL POC Glucose (mg/dL) 190 H (75-99) mg/dL Calcium 5.9 L* (8.4-10.2) mg/dL Total Protein 3.9 L (6.3-8.2) g/dL Albumin 2.1 L (3.5-5.0) g/dL Crossmatch 12/04/20 Range/Units 11:56 WBC (4.50-10.00) X 10*3/uL RBC (4.40-5.60) X 10*6/uL Hgb (13.0-17.0) g/dL Hct (39.6-50.0) % RDW (11.5-14.5) % Plt Count (140-440) X 10*3/uL MPV (9.5-12.2) fL Absolute Nucleated RBC (0.00-0.00) X 10*3/uL Immature Gran # (0.00-0.04) X 10*3/uL Neutrophils # (1.80-7.70) X 10*3/uL Lymphocytes # (0.90-5.00) X 10*3/uL Monocytes # (0.20-1.00) X 10*3/uL Eosinophils # (0.04-0.35) X 10*3/uL NRBC/100 WBC Diff (0.0-0.0) /100 WBCS Sodium (137-145) mmol/L Carbon Dioxide (22-30) mmol/L BUN (9-20) mg/dL Creatinine (0.66-1.25) mg/dL Glucose (74-99) mg/dL POC Glucose (mg/dL) 200 H (75-99) mg/dL Calcium (8.4-10.2) mg/dL Total Protein (6.3-8.2) g/dL Albumin (3.5-5.0) g/dL Crossmatch Assessment and Plan Plan: Assessment: 1. Acute kidney injury secondary to ATN secondary to Covid 19 infection, hypotension and acute blood loss anemia. Creatinine 3.36 today. \No hydronephrosis noted on kidney ultrasound. 2. 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 Creatinine 2.0 in August 2020. 3. Covid 19 infection. Maintained on steroids, zinc. Currently on 7 L nasal cannula. 4. Diabetes mellitus. 5. Metabolic acidosis secondary to acute kidney injury and IV fluids. 6. Hyponatremia secondary to acute kidney injury. Possible SIADH from respiratory infection. 7. Acute blood loss anemia. Hemoglobin 6.0 today. Maintained on Aranesp. 8. Hypocalcemia secondary to acute kidney injury. Corrected calcium near 7.5. Plan: Stop normal saline. Start bicarb drip to be run at 50 mL an hour. 2 A of sodium bicarb IV push today. Scheduled to receive 2 units of blood today. GI also consulted. Wean FiO2. Continue to monitor renal function and urine output. 1 g IV calcium gluconate today. I will also give him a dose of IV DDAVP.
[2020-12-04] MEDS: DEXTROSE 5% IN WATER 1,000 ML with SODIUM BICARB (1 MEQ/ML) 150 ML IV SCH ×2 (14:14→16:05)
--- NOTE | 2020-12-04 14:14 | XR ---
EXAMINATION TYPE: XR chest 1V portable DATE OF EXAM: 12/04/2020 CLINICAL HISTORY: Difficulty breathing and pneumonia progress study. TECHNIQUE: Single AP portable upright view of the chest is obtained. COMPARISON: Chest x-ray from 5 days earlier and older studies. FINDINGS: Post-CABG changes with mediastinal clips and sternal wires is redemonstrated. Cardiac silh ouette size remains stable and mildly enlarged with dual lead pacemaker/defibrillator. Background low lung volumes and Chronic parenchymal changes with bilateral mid to lower lung reticulonodular and co nfluent opacities is redemonstrated. Osseous structures remain somewhat demineralized. New opacity overlying left lung apex extends outside lung fisher. Advise repeat x-ray. IMPRESSION: Cardiomegaly and low lung volumes with Bilateral mid to lower lung reticular and confluen t opacities redemonstrated, findings consistent with covid-19 infection. No significant change from m ost recent x-ray. Suboptimal evaluation left lung apex on current study, suspect opacity from overlying skin adhesive d evice or other material outside lung parenchyma, advise repeat x-ray to better assess left lung apex.
[2020-12-04] MEDS ORDERED: DESMOPRESSIN ACETATE 22 MCG in SODIUM CHLORIDE 0.9% 50 ML IVPB ONE (14:15)
[2020-12-04] MEDS: PANTOPRAZOLE 40 MG/10 ML VIAL IVP SCH ×2 (14:17→21:20)
[2020-12-04 14:56] LABS: Anisocytosis Slight; MCHC 32.3 g/dL (31.0-37.0); Macrocytosis Slight; Mean Platelet Volume 9.6; Poikilocytosis Slight; RBC 1.99 m/uL (4.30-5.90); RDW 18.4 % (11.5-15.5); WBC 22.2 k/uL (3.8-10.6)
--- NOTE | 2020-12-04 14:58 | PN ---
PROGRESS NOTE DATE OF SERVICE: 12/04/2020 REASON FOR FOLLOWUP: COVID-19 infection. INTERVAL HISTORY: The patient is currently hypothermic and requiring a warmer. Patient complaining of feeling weak and tired, but denies having any chest pain, worsening shortness of breath or cough. No abdominal pain or diarrhea. PHYSICAL EXAMINATION: Blood pressure 94/53 with a pulse of 60, temperature is 95.4. He is 91% on 7 L nasal cannula. GENERAL DESCRIPTION: An elderly male lying in bed in no distress. RESPIRATORY SYSTEM: Unlabored breathing, decreased intensity of breath sounds, no wheeze. HEART: S1, S2. Regular rate and rhythm. ABDOMEN: Soft, no tenderness. LABS: Hemoglobin is down to 6, white count 23.62, BUN 148, creatinine 3.36. DIAGNOSTIC IMPRESSION AND PLAN: Patient with acute respiratory failure which is multifactorial. This patient did have COVID-19 infection, now seemed to have slight worsening of his clinical condition. Patient did have progressive and early drop in his hemoglobin. GI has been consulted. With hypothermia and worsening of the white count, underlying secondary bacterial pneumonia not entirely excluded. We will obtain a chest x-ray, also obtain a procalcitonin. With his kidney function, vancomycin can cause further problem and has been discontinued. Vancomycin started by the admitting team. We will add Zyvox and continue cefepime. Prognosis remains to be guarded. Sputum cultures requested a few days ago and has not been done. MMODL / IJN: [id number] /
[2020-12-04] MEDS ORDERED: CALCIUM GLUCONATE 1 GM in SODIUM CHLORIDE 0.9% 100 ML IVPB ONE (15:00)
[2020-12-04 15:07] LABS: HCT 19.1 % (39.0-53.0); HGB 6.2 gm/dL (13.0-17.5); Platelet Count 97 k/uL (150-450)
[2020-12-04 15:35] LABS: Appearance,Urine Cloudy (Clear); Bacteria,Urine Many /hpf; Bilirubin,Urine Negative (Negative); Blood,Urine Trace (Negative); Color,Urine Light Yellow; Glucose,Urine (UA) Negative (Negative); Ketones,Urine Negative (Negative); Leukocyte Esterase,Urine Large (Negative); Mucus,Urine Occasional /hpf; Nitrite,Urine Negative (Negative); Protein,Urine Negative (Negative); RBC,Urine 5 /hpf (0-5); Specific Gravity,Urine 1.014 (1.001-1.035); Urobilinogen,Urine <2.0 mg/dL (<2.0); WBC,Urine 80 /hpf (0-5)
[2020-12-04] MEDS ORDERED: VANCOMYCIN 1,500 MG in SODIUM CHLORIDE 0.9% 250 ML IVPB ONE (16:00)
--- NOTE | 2020-12-04 16:05 | P.PN ---
Subjective Progress Note Date: 12/04/20 Principal diagnosis: Acute COVID-19 pneumonia Acute COVID-19 pneumonia 75-year-old male patient, started having symptoms approximately a week ago when he started feeling a bit tired and fatigued. He subsequently developed fever and diminished appetite and some diarrhea. The patient tested positive for COVID 19 infection 4 days ago and this was again confirmed on 11/19/2020. The patient came into the emergency with weakness and shortness of breath. The patient is currently on 2 L of oxygen by nasal cannula. He is known to have CAD, previous bypass, aortic, chronic disease, diabetes mellitus and diabetic retinopathy and neuropathy and hypothyroidism and gout. Lactate was 0.7, there d-dimer was 0.6, white cell count was at 3.2 with a lymphopenia, creatinine was at 3.37 with a mean of 61. He is also on multivitamins. Chest x-ray showing diffuse bilateral pulmonary infiltrates. On today's evaluation of 4 [phone] the patient is currently on oxygen at 4 L per minute. The patient is quite comfortable. Pulse ox is around 95% and FiO2 can be obviously weaned off. The patient is being seen for a follow-up. The patient is currently being treated with Decadron 6 mg IV every 24 hours. The patient is also on Lovenox 40 mg subcu daily and the patient is also on Remdesivir day #2. No follow-up chest x-rays available from today. The rest of the labs are showing chronic kidney disease with a creatinine of 2.7. The patient has chronic metabolic acidosis which is of a non-anion gap type. On 11/22/2020 patient seen in follow-up. Is comfortable, still desat easily, feels tired, but no acute distress, today's labs have been reviewed, d-dimer 0.69, CRP is 35.6, no LDH. Has not had a chest x-ray, he is currently on 7 L, his pulse ox is 89%, no fever, remains on Remdesivir, today is day 3 of treatment. On 11/23/2020 patient is pretty stable, he remains on 5 L of oxygen, her pulse ox 89-90%, he is breathing comfortably, no worsening dyspnea, his 0.9, saline at 60 per hour, patient completed Remdesivir treatment, he remains on steroids, and prophylactic Lovenox. No worsening dyspnea, today's labs have been reviewed, d- dimer is 1.90, renal profile is slightly improved from yesterday, patient continues on IV fluids, no nausea vomiting or diarrhea, CRP is trending down, LDH with today is pending. On 11/25/2000 patient seen in follow-up on medical surgical floor, he is sitting up in the chair, appears to be breathing comfortably although his oxygen requirements have increased, and is currently on 15 L per high flow nasal cannula up from 12 L from yesterday, he denies any worsening dyspnea, lung sounds reveal diffuse bilateral crackles, no chest discomfort, no signs of any respiratory distress. No cough, no wheezing, today's chest x-ray shows bilateral mid to lower lung increased opacities, findings consistent with COVID- 19 pneumonia, the findings are stable in appearance. Follow-up inflammatory markers showed d-dimer of 19.16, LDH is up to 2028, CRP is 2.4. Patient has completed his Remdesivir course, she remains on daily dose of Decadron 6 mg, and Lovenox 30 mg daily, his renal function appears to be relatively stable, his bun is 64, and creatinine is 2.12 On 11/26/2020 patient seen in follow-up on medical surgical floor, he sitting up in the chair, he is breathing comfortably, he is currently down to 13 L, and his pulse ox is 90-94%, his been afebrile, overall she looks stable, he does not appear to be in any acute distress, he is a d-dimer has trended up, and on today's labs it is up to 30.3, and his Lovenox dose will be adjusted. Today's inflammatory markers are improving. He remains on daily dose IV Decadron 6 mg daily, Lovenox, multivitamins, and his IV fluids are infusing at a rate of 60 ML per hour, no new chest x-ray today, his kidney function shows slight improvement On 11/27/2000 patient seen in follow-up on medical surgical floor, he remains on high flow oxygen 15 L, and the nonrebreather mask, he does desat when he removes his nonrebreather mask down to 86% however he denies any dyspnea, he does not feel stressed at all, and looks very comfortable, he sitting up in the recliner, awake and alert, oriented 3, he is afebrile, hemodynamically has been stable, he has no specific complaints, and his today's chest x-ray shows cardiomegaly and low lung volumes with bilateral mid to lower lung reticular and confluent opacities consistent with COVID-19 pneumonia with no change from previousexam. Today's labs have been reviewed, white blood cell count is 5.45, hemoglobin is 9.3, no d-dimer today, but yesterday's d-dimer was quite elevated at 30.3, and his Lovenox dose was adjusted and increased to 40 mg twice a day, his electrolyte panel shows CO2 of 28.1, but prostate electrolytes are within normal limits, B1 is 84, creatinine is 2.2, his LDH is down to 687, improving, his CRP is 1.2 on today's labs. He continues on Decadron 6 mg daily, he is on Lovenox 40 mg twice a day, and he is receiving IV hydration at 60 ML per hour, nephrology is following On 11/28/2020 patient seen in follow-up on medical surgical floor, he is resting comfortably in bed, he is currently on 15 L high flow and 100% nonrebreather, he looks quite comfortable, he denies any shortness of breath, minimal cough, he is breathing comfortably, his pro-calcitonin level was low, his inflammatory markers were improving, his d-dimer was elevated on 11/26/2020 patient is on 40 mg of Lovenox twice daily, Lasix is at 40 mg every 12 hours patient is in negative fluid balance. No new chest x-ray today On 11/29/2000 patient seen in follow-up on medical surgical floor, is currently on 15 L per high flow nasal cannula, and 100 nonrebreather mask, and he is satting about 93%, he does not feel short of breath, he seems to be breathing very comfortably, he is afebrile, hemodynamically stable, his chest x-ray today shows low lung volumes with bilateral mid to lower lung reticular and confluent opacities consistent with COVID-19 pneumonia. Findings are similar to his previous chest x-ray, lower extremity Dopplers were completed and he was negative for DVT. His d-dimer is trending down, and is down to 16.0. The rest of his lab work has been reviewed, showing white blood cell count of 8.7, hemoglobin of 10.5, sodium is 136, potassium is 4.5, chloride is 98, BUN of 108, and creatinine is 3.2, his calcitonin level was negative at 0.10, his inflammatory markers were improving since admission. No nausea vomiting or diarrhea, and patient continues on daily dose of IV Decadron 6 mg, continues on Lovenox 40 mg twice daily, she was given a dose of Lasix yesterday and he was started on maintenance dose of IV Lasix On 11/30/2020 patient seen in follow-up on medical surgical floor, he is resting comfortably in bed, currently off the nonrebreather mask, on 15 L per high flow nasal cannula with his pulse ox is 90-91%, he looks very comfortable, breathing comfortably, no worsening dyspnea. Cooperative chest discomfort, no cough. No fever or chills. No acute events overnight, patient did receive 1 dose of Toci yesterday 720 mg, he remains on Lovenox 40 mg twice a day, and daily dose Decadron, today's labs have been reviewed, showing white blood cell, 10.1, hemoglobin of 10.3, d-dimer is trending down, down to 11.4, electrolytes are within normal limits, renal profile shows some improvement, pro-Joshua was negative, inflammatory markers are trending down, patient denies any specific complaints On 12/01/2020 patient seen in follow-up on medical surgical floor, is currently on 15 L per high flow nasal cannula and nonrebreather mask, and his pulse ox is 100%, he is breathing very comfortably, denies any cough, denies any chest pain, has had no fever or chills, no nausea vomiting diarrhea, no abdominal pain, no new chest x-rays, his labs have been reviewed, d-dimer today is 12.5, electroly angel are unremarkable, his renal profile slightly improved, his BUN is 113, and creatinine is 2.59. On 12/02/2020 patient seen in follow-up on medical surgical floor, he is currently back on 11 L of oxygen resting comfortably in bed, in comfortably, in his pulse ox was 99%, we dropped the FiO2 down to 8 L, and we instructed the nursing staff to continue weaning it to maintain O2 saturations at or above 90%, patient has no specific complaints, no cough, no chest discomfort, no fever, no chills no headaches, no nausea vomiting or diarrhea. Renal function continues to be impaired, and nephrology is following, his BUN is 1:30, and creatinine is 2.70, electrolytes were unremarkable on today's labs. No new chest x-ray today. Patient remains on IV Decadron 6 mg, and Lovenox is currently at 40 mg twice daily. Follow-up d-dimer is pending for today. On the 12/04/2020 patient seen in follow-up on medical surgical floor, he is currently on 7 L per high flow nasal cannula, his pulse ox is about 86-95%, although she looks very pale, his hemoglobin today is down to 6.0 and patient has not had any obvious bleeding, no hematemesis, no melena, abdomen is soft, no abdominal pain, he is a bit drowsy, he is mildly short of breath but does not appear to be in any acute distress, he was also found to be hypothermic, and appear hugger was applied, he received a unit of packed red blood cells, on in the 2 units are pending for transfusion today, today's labs have been reviewed, his white count is 23.6, his platelet count is down to 93,000, his neutrophil count is 21.5, a remains lymphopenic as well, and lymphocyte count is 0.48, serum sodium is 131, potassium is 5.0, chloride is 106, CO2 is 15, creatinine is 148, and creatinine of 3.36, serum calcium is 5.9, his last LDH from 12/03/2020 was 1654, and CRP was 0.9, CA urinalysis was sent and there is possibility of urinary tract infection with the large amounts of leukocytes esterase, white blood cells and white blood cells in clumps and many bacteria. Patient was started on cefepime, and Zyvox, ID service is following. Patient was increasingly more acidotic and he was given 1 puff sodium bicarbonates IV push, and was started on D5W with 3 A of bicarbonate at a rate of 50 ML per hour. No nausea vomiting or diarrhea. He received a dose of vancomycin yesterday, and vancomycin is being adjusted per pharmacy. Blood cultures are negative thus far Objective - Vital Signs Vital signs: Vital Signs Temp 96.0 F L 12/04/20 14:45 Pulse 74 12/04/20 14:45 Resp 17 12/04/20 14:15 BP 112/66 12/04/20 14:45 Pulse Ox 95 12/04/20 14:15 Intake & Output 12/03/20 12/04/20 12/04/20 18:59 06:59 18:59 Intake Total 310 300 0 Output Total 775 300 Balance -465 0 0 Intake: Oral 300 Blood Product 310 0 Rc As-1 Unit 310 [id number] Rc As-1 Unit 0 [id number] Output: Urine 775 300 Other: Voiding Method External Catheter External Catheter External Catheter - Exam GENERAL EXAM: 75-year-old white male, pale, currently on 7 L of oxygen pulse ox between 86-95%, appears very pale, weak, patient has a bear hugger on for low body temperature HEAD: Normocephalic/atraumatic. EYES: Normal reaction of pupils, equal size. Conjunctiva pink, sclera white. NOSE: Clear with pink turbinates. THROAT: No erythema or exudates. NECK: No masses, no JVD, no thyroid enlargement, no adenopathy. CHEST: No chest wall deformity. Symmetrical expansion. LUNGS: Equal air entry with bilateral crackles CVS: Regular rate and rhythm, normal S1 and S2, no gallops, no murmurs, no rubs ABDOMEN: Soft, nontender. No hepatosplenomegaly, normal bowel sounds, no guarding or rigidity. EXTREMITIES: No clubbing, no edema, no cyanosis, 2+ pulses and upper and lower extremities. MUSCULOSKELETAL: Muscle strength and tone normal. SPINE: No scoliosis or deformity SKIN: No rashes CENTRAL NERVOUS SYSTEM: Alert and oriented -3. No focal deficits, tone is normal in all 4 extremities. - Labs CBC & Chem 7: 12/04/20 13:44 12/04/20 07:46 Labs: Abnormal Lab Results - Last 24 Hours (Table) 12/03/20 12/03/20 12/03/20 Range/Units 09:07 16:57 20:07 WBC (4.50-10.00) X 10*3/uL RBC (4.40-5.60) X 10*6/uL Hgb (13.0-17.0) g/dL Hct (39.6-50.0) % RDW (11.5-14.5) % Plt Count (140-440) X 10*3/uL MPV (9.5-12.2) fL Absolute Nucleated RBC (0.00-0.00) X 10*3/uL Immature Gran # (0.00-0.04) X 10*3/uL Neutrophils # (1.80-7.70) X 10*3/uL Lymphocytes # (0.90-5.00) X 10*3/uL Monocytes # (0.20-1.00) X 10*3/uL Eosinophils # (0.04-0.35) X 10*3/uL NRBC/100 WBC Diff (0.0-0.0) /100 WBCS Sodium (137-145) mmol/L Carbon Dioxide (22-30) mmol/L BUN (9-20) mg/dL Creatinine (0.66-1.25) mg/dL Glucose (74-99) mg/dL POC Glucose (mg/dL) 129 H 191 H (75-99) mg/dL Calcium (8.4-10.2) mg/dL Total Protein (6.3-8.2) g/dL Albumin (3.5-5.0) g/dL Urine Blood (Negative) Ur Leukocyte Esterase (Negative) Urine WBC (0-5) /hpf Urine WBC Clumps (None) /hpf Urine Bacteria (None) /hpf Urine Mucus (None) /hpf Crossmatch See Detail 12/04/20 12/04/20 12/04/20 Range/Units 07:03 07:46 07:46 WBC 23.62 H (4.50-10.00) X 10*3/uL RBC 1.88 L (4.40-5.60) X 10*6/uL Hgb 6.0 L* (13.0-17.0) g/dL Hct 18.2 L* (39.6-50.0) % RDW 17.9 H (11.5-14.5) % Plt Count 93 L (140-440) X 10*3/uL MPV 13.6 H (9.5-12.2) fL Absolute Nucleated RBC 0.02 H (0.00-0.00) X 10*3/uL Immature Gran # 0.57 H (0.00-0.04) X 10*3/uL Neutrophils # 21.55 H (1.80-7.70) X 10*3/uL Lymphocytes # 0.48 L (0.90-5.00) X 10*3/uL Monocytes # 1.01 H (0.20-1.00) X 10*3/uL Eosinophils # 0 L (0.04-0.35) X 10*3/uL NRBC/100 WBC Diff 0.1 H (0.0-0.0) /100 WBCS Sodium 131 L (137-145) mmol/L Carbon Dioxide 15 L (22-30) mmol/L BUN 148 H* (9-20) mg/dL Creatinine 3.36 H (0.66-1.25) mg/dL Glucose 151 H (74-99) mg/dL POC Glucose (mg/dL) 190 H (75-99) mg/dL Calcium 5.9 L* (8.4-10.2) mg/dL Total Protein 3.9 L (6.3-8.2) g/dL Albumin 2.1 L (3.5-5.0) g/dL Urine Blood (Negative) Ur Leukocyte Esterase (Negative) Urine WBC (0-5) /hpf Urine WBC Clumps (None) /hpf Urine Bacteria (None) /hpf Urine Mucus (None) /hpf Crossmatch 12/04/20 12/04/20 12/04/20 Range/Units 11:56 13:44 14:45 WBC 22.2 H (4.50-10.00) X 10*3/uL RBC 1.99 L (4.40-5.60) X 10*6/uL Hgb 6.2 L* (13.0-17.0) g/dL Hct 19.1 L* (39.6-50.0) % RDW 18.4 H (11.5-14.5) % Plt Count 97 L (140-440) X 10*3/uL MPV (9.5-12.2) fL Absolute Nucleated RBC (0.00-0.00) X 10*3/uL Immature Gran # (0.00-0.04) X 10*3/uL Neutrophils # (1.80-7.70) X 10*3/uL Lymphocytes # (0.90-5.00) X 10*3/uL Monocytes # (0.20-1.00) X 10*3/uL Eosinophils # (0.04-0.35) X 10*3/uL NRBC/100 WBC Diff (0.0-0.0) /100 WBCS Sodium (137-145) mmol/L Carbon Dioxide (22-30) mmol/L BUN (9-20) mg/dL Creatinine (0.66-1.25) mg/dL Glucose (74-99) mg/dL POC Glucose (mg/dL) 200 H (75-99) mg/dL Calcium (8.4-10.2) mg/dL Total Protein (6.3-8.2) g/dL Albumin (3.5-5.0) g/dL Urine Blood Trace H (Negative) Ur Leukocyte Esterase Large H (Negative) Urine WBC 80 H (0-5) /hpf Urine WBC Clumps Few H (None) /hpf Urine Bacteria Many H (None) /hpf Urine Mucus Occasional H (None) /hpf Crossmatch Microbiology - Last 24 Hours (Table) 12/03/20 13:07 Blood Culture - Preliminary Blood No Growth after 24 hours Assessment and Plan Plan: Assessment: #1. acute COVID 19 related pneumonia with secondary shortness of breath and hypoxic respiratory failure the patient's symptoms of generalized weakness and dehydration, currently on 4 L of oxygen by nasal cannula, patient was started on Remdesivir on 11/20/2020, Toci on 11/29/2020 #2. acute hypoxic respiratory failure currently on 7 L of oxygen by nasal cannula #3. Rule out possibility of acute blood loss anemia, patient suddenly dropped his hemoglobin to 6.0, without clear source of bleeding, Lovenox was placed on hold. His hemoglobin is down to 6.0 and patient will receive 3 units of pack red blood cells #4. Rule out possibility of sepsis possibly related to urinary tract infection #5. Hypothermia possibly related to sepsis #6. Coronary artery disease with previous positive bypass surgery #7. Mild troponin leak, could be related to Covid 19 infection #8. History of AICD placement #9. Hypothyroidism #10. Diabetes mellitus with diabetic retinopathy #11. 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 Gout #13. Anemia of chronic disease #14. Hypothyroidism #15. Acute kidney injury Plan: Patient is status post 1 unit of packed red blood cells, he is receiving his second unit of blood, Recheck hemoglobin after the second unit of blood and contact Dr. Fenton with results No clear source of bleeding Hematology has been consulted There is possibility of sepsis possibly related to urinary tract infection he is covered with cefepime and Vanco mycin, ID service is following Pulmonary perspective no worsening dyspnea We discontinued the Lovenox Mechanical SCDs for DVT prophylaxis Overall prognosis is guarded I performed a history & physical examination of the patient and discussed their management with my nurse practitioner, Iza Mccarthy. I reviewed the nurse practitioner's note and agree with the documented findings and plan of care. Lung sounds are positive for bibasilar crackles. The findings and the impression was discussed with the patient. I attest to the documentation by the nurse practitioner. Time with Patient: Less than 30
[2020-12-04 16:43] LABS: Glucose,Whole Blood 171 mg/dL (75-99)
[2020-12-04] MEDS: allopurinoL 100 MG TAB PO SCH (16:54)
--- NOTE | 2020-12-04 17:56 | P.PN ---
Subjective Progress Note Date: 12/04/20 Principal diagnosis: Acute hypoxic respiratory failure due to COVID Pneumonia Mr. Pena is a 75-year-old male with a past medical history of hypothyroidism, DrsAustyn Hoskins, gout, peripheral neuropathy, diabetic retinopathy, CK 80, coronary artery disease status post CABG and AICD coming in with a chief complaint of difficulty in breathing. Patient was tested positive for COVID-19. Patient was continued on Decadron, Lovenox, multivitamins along with respiratory support. He also had lower extremity Doppler that was negative for DVT. On 12/02/2020 - patient was seen and examined at the bedside. He is lying comfortably in bed appears to be in no acute distress. Patient complained of left thigh pain, he denied any swelling of his lower extremity. He was slightly confused and did not know where he was. He denied having any chest pain or palpitations. No headache nausea or vomiting. On reviewing the vitals temperature of 97.4, heart rate 50s to 60s, respiratory rate 20, blood pressure 08/23/2064, saturating at 93% on 4 L high flow nasal cannula. On reviewing the labs sodium 136, potassium 4.2, chloride 102, bicarbonate 23, BUN 1:30, creatinine 2.78. On 12/03/2020 - earlier this morning [facility] team was activated as the patient had hypotension and hypothermia. Patient's temperature slowly trended down, he was given a beta boom to get his temperature up. And on repeating labs his hemoglobin was found to be 6.8 down from 10.3. Patient was given 1 L of fluid and 2 units of PRBCs and his blood pressure has been slowly trending up. He is still requiring 10 L of high flow nasal cannula. On talking to him, he states that he is in the hospital but is confused and could not have a full conversation with him. On reviewing labs white count of 22, hemoglobin 6.8, platelets 106. Sodium 134, potassium 4.8, chloride 102, bicarb 18, BUN 136, creatinine 3.03 LDH 1654, CRP 0.9 AST 31, ALT 28, alkaline phosphatase 79. On 12/04/2020 - patient was seen and examined at bedside today. He is much more responsive compared to yesterday. He states that he has been feeling weak and tired. This morning his hemoglobin has been low at 6, with no evidence of any active bleeding. No hematemesis, no dark colored stool or blood in the stool. No complaints of abdominal pain. Patient received only 1 unit of PRBC yesterday. His blood cultures are currently pending. He is empirically started on vancomycin and cefepime. Will obtain urine analysis and urine culture with sensitivities. On reviewing his vitals temperature 97.2, heart rate 68, blood pressure 120/73, saturating at 93% on 7 L of high flow nasal cannula. On reviewing his labs white count of 22.2, hemoglobin 6.2, platelets 97. Sodium 131, but a gerda 5, chloride 106, bicarb 15, BUN 428, creatinine 3.36. Calcium 5.9. Patient's medications have been reviewed. He is on Tylenol, allopurinol, Xanax, vitamin C, aspirin, Lipitor, Coreg, cefepime, vitamin D3, dexamethasone, Pepcid, iron sulfate, NovoLog, Levemir, Synthroid, vancomycin, Protonix, Flomax, Zinc Objective - Vital Signs Vital signs: Vital Signs Temp 95.4 F L 12/04/20 10:00 Pulse 60 12/04/20 10:00 Resp 16 12/04/20 10:00 BP 94/53 12/04/20 10:00 Pulse Ox 91 L 12/04/20 10:00 Intake & Output 12/03/20 12/04/20 12/04/20 18:59 06:59 18:59 Intake Total 310 300 Output Total 775 300 Balance -465 0 Intake: Oral 300 Blood Product 310 Rc As-1 Unit 310 [id number] Output: Urine 775 300 Other: Voiding Method External Catheter External Catheter External Catheter - Exam GENERAL: The patient is alert and oriented x2- 3, not in any acute distress. In a cameron hugger HEENT: Pupils are round and equally reacting to light. EOMI. No scleral icterus.. Positive pallor CARDIOVASCULAR: S1 and S2 present. No murmurs, rubs, or gallops. PULMONARY: Bilateral rhonchi with basal crackles ABDOMEN: Soft, nontender, nondistended, normoactive bowel sounds. No palpable organomegaly. MUSCULOSKELETAL: No joint swelling or deformity. EXTREMITIES: No cyanosis, clubbing, or pedal edema. NEUROLOGICAL: Gross neurological examination did not reveal any focal deficits. SKIN: No rashes. no petechiae. - Labs CBC & Chem 7: 12/04/20 13:44 12/04/20 07:46 Labs: Abnormal Lab Results - Last 24 Hours (Table) 12/03/20 12/03/20 12/03/20 Range/Units 09:07 16:57 20:07 WBC (4.50-10.00) X 10*3/uL RBC (4.40-5.60) X 10*6/uL Hgb (13.0-17.0) g/dL Hct (39.6-50.0) % RDW (11.5-14.5) % Plt Count (140-440) X 10*3/uL MPV (9.5-12.2) fL Absolute Nucleated RBC (0.00-0.00) X 10*3/uL Immature Gran # (0.00-0.04) X 10*3/uL Neutrophils # (1.80-7.70) X 10*3/uL Lymphocytes # (0.90-5.00) X 10*3/uL Monocytes # (0.20-1.00) X 10*3/uL Eosinophils # (0.04-0.35) X 10*3/uL NRBC/100 WBC Diff (0.0-0.0) /100 WBCS Sodium (137-145) mmol/L Carbon Dioxide (22-30) mmol/L BUN (9-20) mg/dL Creatinine (0.66-1.25) mg/dL Glucose (74-99) mg/dL POC Glucose (mg/dL) 129 H 191 H (75-99) mg/dL Calcium (8.4-10.2) mg/dL Total Protein (6.3-8.2) g/dL Albumin (3.5-5.0) g/dL Crossmatch See Detail 12/04/20 12/04/20 12/04/20 Range/Units 07:03 07:46 07:46 WBC 23.62 H (4.50-10.00) X 10*3/uL RBC 1.88 L (4.40-5.60) X 10*6/uL Hgb 6.0 L* (13.0-17.0) g/dL Hct 18.2 L* (39.6-50.0) % RDW 17.9 H (11.5-14.5) % Plt Count 93 L (140-440) X 10*3/uL MPV 13.6 H (9.5-12.2) fL Absolute Nucleated RBC 0.02 H (0.00-0.00) X 10*3/uL Immature Gran # 0.57 H (0.00-0.04) X 10*3/uL Neutrophils # 21.55 H (1.80-7.70) X 10*3/uL Lymphocytes # 0.48 L (0.90-5.00) X 10*3/uL Monocytes # 1.01 H (0.20-1.00) X 10*3/uL Eosinophils # 0 L (0.04-0.35) X 10*3/uL NRBC/100 WBC Diff 0.1 H (0.0-0.0) /100 WBCS Sodium 131 L (137-145) mmol/L Carbon Dioxide 15 L (22-30) mmol/L BUN 148 H* (9-20) mg/dL Creatinine 3.36 H (0.66-1.25) mg/dL Glucose 151 H (74-99) mg/dL POC Glucose (mg/dL) 190 H (75-99) mg/dL Calcium 5.9 L* (8.4-10.2) mg/dL Total Protein 3.9 L (6.3-8.2) g/dL Albumin 2.1 L (3.5-5.0) g/dL Crossmatch 12/04/20 Range/Units 11:56 WBC (4.50-10.00) X 10*3/uL RBC (4.40-5.60) X 10*6/uL Hgb (13.0-17.0) g/dL Hct (39.6-50.0) % RDW (11.5-14.5) % Plt Count (140-440) X 10*3/uL MPV (9.5-12.2) fL Absolute Nucleated RBC (0.00-0.00) X 10*3/uL Immature Gran # (0.00-0.04) X 10*3/uL Neutrophils # (1.80-7.70) X 10*3/uL Lymphocytes # (0.90-5.00) X 10*3/uL Monocytes # (0.20-1.00) X 10*3/uL Eosinophils # (0.04-0.35) X 10*3/uL NRBC/100 WBC Diff (0.0-0.0) /100 WBCS Sodium (137-145) mmol/L Carbon Dioxide (22-30) mmol/L BUN (9-20) mg/dL Creatinine (0.66-1.25) mg/dL Glucose (74-99) mg/dL POC Glucose (mg/dL) 200 H (75-99) mg/dL Calcium (8.4-10.2) mg/dL Total Protein (6.3-8.2) g/dL Albumin (3.5-5.0) g/dL Crossmatch Assessment and Plan Assessment: ASSESSMENT Acute hypoxic respiratory failure secondary to COVID-19 pneumonia Hypothermia Hypotension Acute blood loss anemia ? 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 He is in the [facility]. Blood cultures pending. Patient's hemoglobin is low at 6 this morning, will transfuse 2 units of PRBCs. He was empirically started on vancomycin and cefepime, ID Dr. Ayala changed on vancomycin to Zyvox today. Also there was drop in platelets, his Lovenox has been discontinued. Hematology has been consulted. Will follow inflammatory markers and continue to monitor CBC and electrolytes. Patient to be continued on Decadron, Lovenox. Patient's BUN and creatinine still elevated, nephrology on board and following closely. We will follow up on inflammatory markers. Continue with GI DVT prophylaxis. Overall prognosis is guarded due to multiple chronic medical conditions. Further recom mendations to follow depending on the progress of the patient.
[2020-12-04 18:00] LABS: Anisocytosis Slight; HCT 23.7 % (39.0-53.0); MCH 32.5 pg (25.0-35.0); MCHC 35.4 g/dL (31.0-37.0); MCV 91.7 fL (80.0-100.0); Mean Platelet Volume 9.8; RBC 2.59 m/uL (4.30-5.90); RDW 16.9 % (11.5-15.5)
[2020-12-04 18:01] LABS: HGB 8.4 gm/dL (13.0-17.5); Platelet Count 90 k/uL (150-450)
[2020-12-04 20:58] LABS: Glucose,Whole Blood 139 mg/dL (75-99)
[2020-12-04] MEDS ORDERED: PANTOPRAZOLE 40 MG/10 ML VIAL IVP SCH (21:00)
[2020-12-04] MEDS: TAMSULOSIN 0.4 MG CAP.ER.24H PO SCH (21:20)
[2020-12-04] MEDS: ATORVASTATIN 40 MG TAB PO SCH (21:20)
[2020-12-04] MEDS: CEFEPIME 1 GM in SODIUM CHLORIDE 0.9% 50 ML IVPB SCH (21:20)
[2020-12-04] MEDS: LINEZOLID 600 MG in DEXTROSE/WATER 1 300ML.BAG IVPB SCH (21:21)
[2020-12-05 02:56] LABS: Anisocytosis Slight; HCT 22.6 % (39.0-53.0); HGB 7.5 gm/dL (13.0-17.5); MCH 31.4 pg (25.0-35.0); MCHC 33.2 g/dL (31.0-37.0); MCV 94.5 fL (80.0-100.0); Macrocytosis Slight; Mean Platelet Volume 9.3; Platelet Count 95 k/uL (150-450); RBC 2.39 m/uL (4.30-5.90); RDW 17.6 % (11.5-15.5); WBC 25.1 k/uL (3.8-10.6)
[2020-12-05 04:58] LABS: ALT 34 U/L (4-49); AST 50 U/L (17-59); African American GFR (CKD) 19 (>60 ml/min/1.73 sqM); Albumin 2.2 g/dL (3.5-5.0); Albumin/Globulin Ratio 1.1; Alkaline Phosphatase 65 U/L (38-126); Anion Gap 11 mmol/L; Carbon Dioxide 14 mmol/L (22-30); Chloride 107 mmol/L (98-107); Glucose 119 mg/dL (74-99); Magnesium 2.1 mg/dL (1.6-2.3); Non-African American GFR(CKD) 16 (>60 ml/min/1.73 sqM); Potassium 5.6 mmol/L (3.5-5.1); Sodium 132 mmol/L (137-145); Total Bilirubin 0.5 mg/dL (0.2-1.3); Total Protein 4.2 g/dL (6.3-8.2); Vancomycin,Random 24.8 ug/mL
[2020-12-05 05:21] LABS: Blood Urea Nitrogen 156 mg/dL (9-20)
[2020-12-05] MEDS: LEVOTHYROXINE 100 MCG TAB PO SCH (05:48)
[2020-12-05] MEDS ORDERED: SODIUM CHLORIDE 0.9% 500 ML 500 ML IV ONE (05:56)
[2020-12-05] MEDS ORDERED: SODIUM BICARB 8.4% 50 ML SYR (1 MEQ/ML) IV STA (07:32)
[2020-12-05] MEDS: CEFEPIME 1 GM in SODIUM CHLORIDE 0.9% 50 ML IVPB SCH ×2 (08:09→21:43)
[2020-12-05] MEDS: PANTOPRAZOLE 40 MG/10 ML VIAL IVP SCH ×2 (08:09→21:43)
[2020-12-05] MEDS: DEXAMETHASONE SOD PHOSPHATE 10 MG/ML 1 ML VIAL IV SCH (08:10)
[2020-12-05] MEDS: REPAGLINIDE 1 MG TAB PO SCH ×2 (08:12→17:23)
[2020-12-05] MEDS: ASCORBIC ACID 500 MG TAB PO SCH ×2 (08:12→21:43)
[2020-12-05] MEDS: CHOLECALCIFEROL 25 MCG (1000 IU) TABLET PO SCH (08:12)
[2020-12-05] MEDS: ASPIRIN 81 MG PO SCH (08:12)
[2020-12-05] MEDS: carvediloL 6.25 MG TAB PO SCH ×2 (08:12→17:12)
[2020-12-05] MEDS: INSULIN DETEMIR (LEVEMIR) 100 UNIT/ML SYR SQ SCH ×2 (08:12→21:43)
[2020-12-05] MEDS: FAMOTIDINE 20 MG TAB PO SCH (08:12)
[2020-12-05] MEDS: ZINC SULFATE 220 MG CAP PO SCH (08:13)
[2020-12-05] MEDS: INSULIN ASPART (NovoLOG) 100 UNIT/ML VIAL SQ SCH ×4 (08:14→20:40)
[2020-12-05 08:17] LABS: Glucose,Whole Blood 145 mg/dL (75-99)
[2020-12-05 08:18] LABS: Glucose,Whole Blood 135 mg/dL (75-99)
[2020-12-05] MEDS: LINEZOLID 600 MG in DEXTROSE/WATER 1 300ML.BAG IVPB SCH ×2 (09:23→21:44)
[2020-12-05 11:22] LABS: Glucose,Whole Blood 142 mg/dL (75-99)
[2020-12-05] MEDS: DARBEPOETIN ALFA 40 MCG/0.4 ML SYRINGE SQ SCH (11:29)
[2020-12-05] MEDS ORDERED: CALCIUM GLUCONATE 2 GM in SODIUM CHLORIDE 0.9% 100 ML IVPB ONE (11:36)
--- NOTE | 2020-12-05 12:26 | P.PN ---
Subjective Patient is seen in follow for acute kidney injury on chronic kidney disease. Renal function worsening. Creatinine 3.49 today received a unit of blood yesterday. No active bleeding. Urine output 700 mL in the last 24 hours. Vital signs stable. General: The patient appeared well nourished and normally developed. HEENT: Head exam is unremarkable. Neck is without jugular venous distension. LUNGS: Breath sounds decreased. HEART: Rate and Rhythm are regular. ABDOMEN: Soft, nondistended. EXTREMITITES: No edema. Objective - Vital Signs Vital signs: Vital Signs Temp 96.3 F L 12/05/20 10:00 Pulse 70 12/05/20 10:00 Resp 16 12/05/20 10:00 BP 136/76 12/05/20 10:00 Pulse Ox 100 12/05/20 10:00 Intake & Output 12/04/20 12/05/20 12/05/20 18:59 06:59 18:59 Intake Total 310 Output Total 250 450 Balance 60 -450 Intake: Blood Product 310 Rc As-1 Unit 310 [id number] Output: Urine 250 450 Other: Voiding Method External Catheter External Catheter Indwelling Catheter - Labs CBC & Chem 7: 12/05/20 02:27 12/05/20 02:27 Labs: Abnormal Lab Results - Last 24 Hours (Table) 12/03/20 12/04/20 12/04/20 Range/Units 09:07 07:46 13:44 WBC 23.62 H 22.2 H (4.50-10.00) X 10*3/uL RBC 1.88 L 1.99 L (4.40-5.60) X 10*6/uL Hgb 6.0 L* 6.2 L* (13.0-17.0) g/dL Hct 18.2 L* 19.1 L* (39.6-50.0) % RDW 17.9 H 18.4 H (11.5-14.5) % Plt Count 93 L 97 L (140-440) X 10*3/uL MPV 13.6 H (9.5-12.2) fL Absolute Nucleated RBC 0.02 H (0.00-0.00) X 10*3/uL Immature Gran # 0.57 H (0.00-0.04) X 10*3/uL Neutrophils # 21.55 H (1.80-7.70) X 10*3/uL Lymphocytes # 0.48 L (0.90-5.00) X 10*3/uL Monocytes # 1.01 H (0.20-1.00) X 10*3/uL Eosinophils # 0 L (0.04-0.35) X 10*3/uL NRBC/100 WBC Diff 0.1 H (0.0-0.0) /100 WBCS Sodium (137-145) mmol/L Potassium (3.5-5.1) mmol/L Carbon Dioxide (22-30) mmol/L BUN (9-20) mg/dL Creatinine (0.66-1.25) mg/dL Glucose (74-99) mg/dL POC Glucose (mg/dL) (75-99) mg/dL Plasma Lactic Acid Narayan (0.7-2.0) mmol/L Calcium (8.4-10.2) mg/dL Total Protein (6.3-8.2) g/dL Albumin (3.5-5.0) g/dL Procalcitonin (0.02-0.09) ng/mL Urine Blood (Negative) Ur Leukocyte Esterase (Negative) Urine WBC (0-5) /hpf Urine WBC Clumps (None) /hpf Urine Bacteria (None) /hpf Urine Mucus (None) /hpf Crossmatch See Detail 12/04/20 12/04/20 12/04/20 Range/Units 14:45 16:42 17:18 WBC 25.0 H (4.50-10.00) X 10*3/uL RBC 2.59 L (4.40-5.60) X 10*6/uL Hgb 8.4 L D (13.0-17.0) g/dL Hct 23.7 L (39.6-50.0) % RDW 16.9 H (11.5-14.5) % Plt Count 90 L (140-440) X 10*3/uL MPV (9.5-12.2) fL Absolute Nucleated RBC (0.00-0.00) X 10*3/uL Immature Gran # (0.00-0.04) X 10*3/uL Neutrophils # (1.80-7.70) X 10*3/uL Lymphocytes # (0.90-5.00) X 10*3/uL Monocytes # (0.20-1.00) X 10*3/uL Eosinophils # (0.04-0.35) X 10*3/uL NRBC/100 WBC Diff (0.0-0.0) /100 WBCS Sodium (137-145) mmol/L Potassium (3.5-5.1) mmol/L Carbon Dioxide (22-30) mmol/L BUN (9-20) mg/dL Creatinine (0.66-1.25) mg/dL Glucose (74-99) mg/dL POC Glucose (mg/dL) 171 H (75-99) mg/dL Plasma Lactic Acid Narayan (0.7-2.0) mmol/L Calcium (8.4-10.2) mg/dL Total Protein (6.3-8.2) g/dL Albumin (3.5-5.0) g/dL Procalcitonin (0.02-0.09) ng/mL Urine Blood Trace H (Negative) Ur Leukocyte Esterase Large H (Negative) Urine WBC 80 H (0-5) /hpf Urine WBC Clumps Few H (None) /hpf Urine Bacteria Many H (None) /hpf Urine Mucus Occasional H (None) /hpf Crossmatch 12/04/20 12/05/20 12/05/20 Range/Units 20:57 02:27 02:27 WBC 25.1 H (4.50-10.00) X 10*3/uL RBC 2.39 L (4.40-5.60) X 10*6/uL Hgb 7.5 L (13.0-17.0) g/dL Hct 22.6 L (39.6-50.0) % RDW 17.6 H (11.5-14.5) % Plt Count 95 L (140-440) X 10*3/uL MPV (9.5-12.2) fL Absolute Nucleated RBC (0.00-0.00) X 10*3/uL Immature Gran # (0.00-0.04) X 10*3/uL Neutrophils # (1.80-7.70) X 10*3/uL Lymphocytes # (0.90-5.00) X 10*3/uL Monocytes # (0.20-1.00) X 10*3/uL Eosinophils # (0.04-0.35) X 10*3/uL NRBC/100 WBC Diff (0.0-0.0) /100 WBCS Sodium 132 L (137-145) mmol/L Potassium 5.6 H (3.5-5.1) mmol/L Carbon Dioxide 14 L (22-30) mmol/L BUN 156 H* (9-20) mg/dL Creatinine 3.49 H (0.66-1.25) mg/dL Glucose 119 H (74-99) mg/dL POC Glucose (mg/dL) 139 H (75-99) mg/dL Plasma Lactic Acid Narayan (0.7-2.0) mmol/L Calcium 6.0 L* (8.4-10.2) mg/dL Total Protein 4.2 L (6.3-8.2) g/dL Albumin 2.2 L (3.5-5.0) g/dL Procalcitonin (0.02-0.09) ng/mL Urine Blood (Negative) Ur Leukocyte Esterase (Negative) Urine WBC (0-5) /hpf Urine WBC Clumps (None) /hpf Urine Bacteria (None) /hpf Urine Mucus (None) /hpf Crossmatch 12/05/20 12/05/20 12/05/20 Range/Units 02:27 02:27 04:59 WBC (4.50-10.00) X 10*3/uL RBC (4.40-5.60) X 10*6/uL Hgb (13.0-17.0) g/dL Hct (39.6-50.0) % RDW (11.5-14.5) % Plt Count (140-440) X 10*3/uL MPV (9.5-12.2) fL Absolute Nucleated RBC (0.00-0.00) X 10*3/uL Immature Gran # (0.00-0.04) X 10*3/uL Neutrophils # (1.80-7.70) X 10*3/uL Lymphocytes # (0.90-5.00) X 10*3/uL Monocytes # (0.20-1.00) X 10*3/uL Eosinophils # (0.04-0.35) X 10*3/uL NRBC/100 WBC Diff (0.0-0.0) /100 WBCS Sodium (137-145) mmol/L Potassium (3.5-5.1) mmol/L Carbon Dioxide (22-30) mmol/L BUN (9-20) mg/dL Creatinine (0.66-1.25) mg/dL Glucose (74-99) mg/dL POC Glucose (mg/dL) 145 H (75-99) mg/dL Plasma Lactic Acid Narayan 3.0 H* (0.7-2.0) mmol/L Calcium (8.4-10.2) mg/dL Total Protein (6.3-8.2) g/dL Albumin (3.5-5.0) g/dL Procalcitonin 0.28 H (0.02-0.09) ng/mL Urine Blood (Negative) Ur Leukocyte Esterase (Negative) Urine WBC (0-5) /hpf Urine WBC Clumps (None) /hpf Urine Bacteria (None) /hpf Urine Mucus (None) /hpf Crossmatch 12/05/20 12/05/20 12/05/20 Range/Units 06:49 07:32 10:43 WBC (4.50-10.00) X 10*3/uL RBC (4.40-5.60) X 10*6/uL Hgb (13.0-17.0) g/dL Hct (39.6-50.0) % RDW (11.5-14.5) % Plt Count (140-440) X 10*3/uL MPV (9.5-12.2) fL Absolute Nucleated RBC (0.00-0.00) X 10*3/uL Immature Gran # (0.00-0.04) X 10*3/uL Neutrophils # (1.80-7.70) X 10*3/uL Lymphocytes # (0.90-5.00) X 10*3/uL Monocytes # (0.20-1.00) X 10*3/uL Eosinophils # (0.04-0.35) X 10*3/uL NRBC/100 WBC Diff (0.0-0.0) /100 WBCS Sodium (137-145) mmol/L Potassium (3.5-5.1) mmol/L Carbon Dioxide (22-30) mmol/L BUN (9-20) mg/dL Creatinine (0.66-1.25) mg/dL Glucose (74-99) mg/dL POC Glucose (mg/dL) 135 H (75-99) mg/dL Plasma Lactic Acid Narayan 2.8 H* 2.6 H* (0.7-2.0) mmol/L Calcium (8.4-10.2) mg/dL Total Protein (6.3-8.2) g/dL Albumin (3.5-5.0) g/dL Procalcitonin (0.02-0.09) ng/mL Urine Blood (Negative) Ur Leukocyte Esterase (Negative) Urine WBC (0-5) /hpf Urine WBC Clumps (None) /hpf Urine Bacteria (None) /hpf Urine Mucus (None) /hpf Crossmatch 12/05/20 Range/Units 11:21 WBC (4.50-10.00) X 10*3/uL RBC (4.40-5.60) X 10*6/uL Hgb (13.0-17.0) g/dL Hct (39.6-50.0) % RDW (11.5-14.5) % Plt Count (140-440) X 10*3/uL MPV (9.5-12.2) fL Absolute Nucleated RBC (0.00-0.00) X 10*3/uL Immature Gran # (0.00-0.04) X 10*3/uL Neutrophils # (1.80-7.70) X 10*3/uL Lymphocytes # (0.90-5.00) X 10*3/uL Monocytes # (0.20-1.00) X 10*3/uL Eosinophils # (0.04-0.35) X 10*3/uL NRBC/100 WBC Diff (0.0-0.0) /100 WBCS Sodium (137-145) mmol/L Potassium (3.5-5.1) mmol/L Carbon Dioxide (22-30) mmol/L BUN (9-20) mg/dL Creatinine (0.66-1.25) mg/dL Glucose (74-99) mg/dL POC Glucose (mg/dL) 142 H (75-99) mg/dL Plasma Lactic Acid Narayan (0.7-2.0) mmol/L Calcium (8.4-10.2) mg/dL Total Protein (6.3-8.2) g/dL Albumin (3.5-5.0) g/dL Procalcitonin (0.02-0.09) ng/mL Urine Blood (Negative) Ur Leukocyte Esterase (Negative) Urine WBC (0-5) /hpf Urine WBC Clumps (None) /hpf Urine Bacteria (None) /hpf Urine Mucus (None) /hpf Crossmatch Microbiology - Last 24 Hours (Table) 12/04/20 14:45 Urine Culture - Preliminary Urine,Voided 12/03/20 13:07 Blood Culture - Preliminary Blood No Growth after 24 hours Assessment and Plan Plan: Assessment: 1. Acute kidney injury secondary to ATN secondary to Covid 19 infection, hypotension and acute blood loss anemia. Creatinine 3.49 today. \No hydronephrosis noted on kidney ultrasound. Elevated BUN due to steroids, chronic kidney disease and GI bleed. 2. 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 Creatinine 2.0 in August 2020. 3. Covid 19 infection. Maintained on steroids, zinc. Currently on 15 L high flow cannula. 4. Diabetes mellitus. 5. Metabolic acidosis secondary to acute kidney injury and lactic acidosis. Fluid bolus was given this morning. 6. Hyponatremia secondary to acute kidney injury. Possible SIADH from respiratory infection. 7. Acute blood loss anemia. Maintained on Aranesp. Status post blood transfusion on December 04. Status post IV DDAVP December 04. 8. Hypocalcemia secondary to acute kidney injury. Corrected calcium near 7.4. Plan: Maintain bicarb drip. Also received sodium bicarbonate IV push this morning. GI recommendations pending. Wean FiO2. Continue to monitor renal function and urine output. Continue to assess daily for need for renal replacement therapy. Repeat potassium level this evening.
[2020-12-05] MEDS: FERROUS SULFATE 325 MG TAB PO SCH ×2 (13:11→17:12)
--- NOTE | 2020-12-05 14:23 | P.PN ---
Subjective Progress Note Date: 12/05/20 Principal diagnosis: Acute COVID-19 pneumonia Acute COVID-19 pneumonia 75-year-old male patient, started having symptoms approximately a week ago when he started feeling a bit tired and fatigued. He subsequently developed fever and diminished appetite and some diarrhea. The patient tested positive for COVID 19 infection 4 days ago and this was again confirmed on 11/19/2020. The patient came into the emergency with weakness and shortness of breath. The patient is currently on 2 L of oxygen by nasal cannula. He is known to have CAD, previous bypass, aortic, chronic disease, diabetes mellitus and diabetic retinopathy and neuropathy and hypothyroidism and gout. Lactate was 0.7, there d-dimer was 0.6, white cell count was at 3.2 with a lymphopenia, creatinine was at 3.37 with a mean of 61. He is also on multivitamins. Chest x-ray showing diffuse bilateral pulmonary infiltrates. On today's evaluation of 4 [id number],021 the patient is currently on oxygen at 4 L per minute. The patient is quite comfortable. Pulse ox is around 95% and FiO2 can be obviously weaned off. The patient is being seen for a follow-up. The patient is currently being treated with Decadron 6 mg IV every 24 hours. The patient is also on Lovenox 40 mg subcu daily and the patient is also on Remdesivir day #2. No follow-up chest x-rays available from today. The rest of the labs are showing chronic kidney disease with a creatinine of 2.7. The patient has chronic metabolic acidosis which is of a non-anion gap type. On 11/22/2020 patient seen in follow-up. Is comfortable, still desat easily, feels tired, but no acute distress, today's labs have been reviewed, d-dimer 0.69, CRP is 35.6, no LDH. Has not had a chest x-ray, he is currently on 7 L, his pulse ox is 89%, no fever, remains on Remdesivir, today is day 3 of treatment. On 11/23/2020 patient is pretty stable, he remains on 5 L of oxygen, her pulse ox 89-90%, he is breathing comfortably, no worsening dyspnea, his 0.9, saline at 60 per hour, patient completed Remdesivir treatment, he remains on steroids, and prophylactic Lovenox. No worsening dyspnea, today's labs have been reviewed, d- dimer is 1.90, renal profile is slightly improved from yesterday, patient continues on IV fluids, no nausea vomiting or diarrhea, CRP is trending down, LDH with today is pending. On 11/25/2000 patient seen in follow-up on medical surgical floor, he is sitting up in the chair, appears to be breathing comfortably although his oxygen requirements have increased, and is currently on 15 L per high flow nasal cannula up from 12 L from yesterday, he denies any worsening dyspnea, lung sounds reveal diffuse bilateral crackles, no chest discomfort, no signs of any respiratory distress. No cough, no wheezing, today's chest x-ray shows bilateral mid to lower lung increased opacities, findings consistent with COVID- 19 pneumonia, the findings are stable in appearance. Follow-up inflammatory markers showed d-dimer of 19.16, LDH is up to 2028, CRP is 2.4. Patient has completed his Remdesivir course, she remains on daily dose of Decadron 6 mg, and Lovenox 30 mg daily, his renal function appears to be relatively stable, his bun is 64, and creatinine is 2.12 On 11/26/2020 patient seen in follow-up on medical surgical floor, he sitting up in the chair, he is breathing comfortably, he is currently down to 13 L, and his pulse ox is 90-94%, his been afebrile, overall she looks stable, he does not appear to be in any acute distress, he is a d-dimer has trended up, and on today's labs it is up to 30.3, and his Lovenox dose will be adjusted. Today's inflammatory markers are improving. He remains on daily dose IV Decadron 6 mg daily, Lovenox, multivitamins, and his IV fluids are infusing at a rate of 60 ML per hour, no new chest x-ray today, his kidney function shows slight improvement On 11/27/2000 patient seen in follow-up on medical surgical floor, he remains on high flow oxygen 15 L, and the nonrebreather mask, he does desat when he removes his nonrebreather mask down to 86% however he denies any dyspnea, he does not feel stressed at all, and looks very comfortable, he sitting up in the recliner, awake and alert, oriented 3, he is afebrile, hemodynamically has been stable, he has no specific complaints, and his today's chest x-ray shows cardiomegaly and low lung volumes with bilateral mid to lower lung reticular and confluent opacities consistent with COVID-19 pneumonia with no change from previousexam. Today's labs have been reviewed, white blood cell count is 5.45, hemoglobin is 9.3, no d-dimer today, but yesterday's d-dimer was quite elevated at 30.3, and his Lovenox dose was adjusted and increased to 40 mg twice a day, his electrolyte panel shows CO2 of 28.1, but prostate electrolytes are within normal limits, B1 is 84, creatinine is 2.2, his LDH is down to 687, improving, his CRP is 1.2 on today's labs. He continues on Decadron 6 mg daily, he is on Lovenox 40 mg twice a day, and he is receiving IV hydration at 60 ML per hour, nephrology is following On 11/28/2020 patient seen in follow-up on medical surgical floor, he is resting comfortably in bed, he is currently on 15 L high flow and 100% nonrebreather, he looks quite comfortable, he denies any shortness of breath, minimal cough, he is breathing comfortably, his pro-calcitonin level was low, his inflammatory markers were improving, his d-dimer was elevated on 11/26/2020 patient is on 40 mg of Lovenox twice daily, Lasix is at 40 mg every 12 hours patient is in negative fluid balance. No new chest x-ray today On 11/29/2000 patient seen in follow-up on medical surgical floor, is currently on 15 L per high flow nasal cannula, and 100 nonrebreather mask, and he is satting about 93%, he does not feel short of breath, he seems to be breathing very comfortably, he is afebrile, hemodynamically stable, his chest x-ray today shows low lung volumes with bilateral mid to lower lung reticular and confluent opacities consistent with COVID-19 pneumonia. Findings are similar to his previous chest x-ray, lower extremity Dopplers were completed and he was negative for DVT. His d-dimer is trending down, and is down to 16.0. The rest of his lab work has been reviewed, showing white blood cell count of 8.7, hemoglobin of 10.5, sodium is 136, potassium is 4.5, chloride is 98, BUN of 108, and creatinine is 3.2, his calcitonin level was negative at 0.10, his inflammatory markers were improving since admission. No nausea vomiting or diarrhea, and patient continues on daily dose of IV Decadron 6 mg, continues on Lovenox 40 mg twice daily, she was given a dose of Lasix yesterday and he was started on maintenance dose of IV Lasix On 11/30/2020 patient seen in follow-up on medical surgical floor, he is resting comfortably in bed, currently off the nonrebreather mask, on 15 L per high flow nasal cannula with his pulse ox is 90-91%, he looks very comfortable, breathing comfortably, no worsening dyspnea. Cooperative chest discomfort, no cough. No fever or chills. No acute events overnight, patient did receive 1 dose of Toci yesterday 720 mg, he remains on Lovenox 40 mg twice a day, and daily dose Decadron, today's labs have been reviewed, showing white blood cell, 10.1, hemoglobin of 10.3, d-dimer is trending down, down to 11.4, electrolytes are within normal limits, renal profile shows some improvement, pro-Joshua was negative, inflammatory markers are trending down, patient denies any specific complaints On 12/01/2020 patient seen in follow-up on medical surgical floor, is currently on 15 L per high flow nasal cannula and nonrebreather mask, and his pulse ox is 100%, he is breathing very comfortably, denies any cough, denies any chest pain, has had no fever or chills, no nausea vomiting diarrhea, no abdominal pain, no new chest x-rays, his labs have been reviewed, d-dimer today is 12.5, electroly angel are unremarkable, his renal profile slightly improved, his BUN is 113, and creatinine is 2.59. On 12/02/2020 patient seen in follow-up on medical surgical floor, he is currently back on 11 L of oxygen resting comfortably in bed, in comfortably, in his pulse ox was 99%, we dropped the FiO2 down to 8 L, and we instructed the nursing staff to continue weaning it to maintain O2 saturations at or above 90%, patient has no specific complaints, no cough, no chest discomfort, no fever, no chills no headaches, no nausea vomiting or diarrhea. Renal function continues to be impaired, and nephrology is following, his BUN is 1:30, and creatinine is 2.70, electrolytes were unremarkable on today's labs. No new chest x-ray today. Patient remains on IV Decadron 6 mg, and Lovenox is currently at 40 mg twice daily. Follow-up d-dimer is pending for today. On the 12/04/2020 patient seen in follow-up on medical surgical floor, he is currently on 7 L per high flow nasal cannula, his pulse ox is about 86-95%, although she looks very pale, his hemoglobin today is down to 6.0 and patient has not had any obvious bleeding, no hematemesis, no melena, abdomen is soft, no abdominal pain, he is a bit drowsy, he is mildly short of breath but does not appear to be in any acute distress, he was also found to be hypothermic, and appear hugger was applied, he received a unit of packed red blood cells, on in the 2 units are pending for transfusion today, today's labs have been reviewed, his white count is 23.6, his platelet count is down to 93,000, his neutrophil count is 21.5, a remains lymphopenic as well, and lymphocyte count is 0.48, serum sodium is 131, potassium is 5.0, chloride is 106, CO2 is 15, creatinine is 148, and creatinine of 3.36, serum calcium is 5.9, his last LDH from 12/03/2020 was 1654, and CRP was 0.9, CA urinalysis was sent and there is possibility of urinary tract infection with the large amounts of leukocytes esterase, white blood cells and white blood cells in clumps and many bacteria. Patient was started on cefepime, and Zyvox, ID service is following. Patient was increasingly more acidotic and he was given 1 puff sodium bicarbonates IV push, and was started on D5W with 3 A of bicarbonate at a rate of 50 ML per hour. No nausea vomiting or diarrhea. He received a dose of vancomycin yesterday, and vancomycin is being adjusted per pharmacy. Blood cultures are negative thus far On 12/05/2020 patient seen in follow-up on medical surgical floor. He is breat carla comfortably, he is resting in bed, he continues to require a bear hugger his current temp is currently 96.3 degrees utilizing a temporal artery. No obvious bleeding, patient is passing dark stools, however he also takes iron supplements, and the nurse states his stools are not obviously black and tarry, no hematemesis, abdomen is soft, no hematuria. No altered mentation, he is awake and alert, he is answering questions appropriately, he denies any worsening dyspnea, urine and blood cultures have been sent and are pending at this time, and patient is currently covered with cefepime, and Zyvox. Patient received 2 A of sodium bicarbonate this morning. Today's labs show a white blood cell count of 25.1, hemoglobin of 7.5, sodium is 132, potassium is 5.6, CO2 was 14, BUN was 156, creatinine is 3.49, lactic acid was 2.6, pro-calcitonin level is low at 0.28. Urinalysis suggest possibility of urinary tract infection. Objective - Vital Signs Vital signs: Vital Signs Temp 96.3 F L 12/05/20 10:00 Pulse 70 12/05/20 10:00 Resp 16 12/05/20 10:00 BP 136/76 12/05/20 10:00 Pulse Ox 100 12/05/20 10:00 Intake & Output 12/04/20 12/05/20 12/05/20 18:59 06:59 18:59 Intake Total 310 Output Total 250 450 Balance 60 -450 Intake: Blood Product 310 Rc As-1 Unit 310 [id number] Output: Urine 250 450 Other: Voiding Method External Catheter External Catheter Indwelling Catheter - Exam GENERAL EXAM: 75-year-old white male, pale, currently on 15 L of oxygen pulse ox between 100%, appears very pale, weak, patient has a bear hugger on for low body temperature HEAD: Normocephalic/atraumatic. EYES: Normal reaction of pupils, equal size. Conjunctiva pink, sclera white. NOSE: Clear with pink turbinates. THROAT: No erythema or exudates. NECK: No masses, no JVD, no thyroid enlargement, no adenopathy. CHEST: No chest wall deformity. Symmetrical expansion. LUNGS: Equal air entry with bilateral crackles CVS: Regular rate and rhythm, normal S1 and S2, no gallops, no murmurs, no rubs ABDOMEN: Soft, nontender. No hepatosplenomegaly, normal bowel sounds, no guarding or rigidity. EXTREMITIES: No clubbing, no edema, no cyanosis, 2+ pulses and upper and lower extremities. MUSCULOSKELETAL: Muscle strength and tone normal. SPINE: No scoliosis or deformity SKIN: No rashes CENTRAL NERVOUS SYSTEM: Alert and oriented -3. No focal deficits, tone is normal in all 4 extremities. - Labs CBC & Chem 7: 12/05/20 02:27 12/05/20 02:27 Labs: Abnormal Lab Results - Last 24 Hours (Table) 12/03/20 12/04/20 12/04/20 Range/Units 09:07 13:44 14:45 WBC 22.2 H (3.8-10.6) k/uL RBC 1.99 L (4.30-5.90) m/uL Hgb 6.2 L* (13.0-17.5) gm/dL Hct 19.1 L* (39.0-53.0) % RDW 18.4 H (11.5-15.5) % Plt Count 97 L (150-450) k/uL Sodium (137-145) mmol/L Potassium (3.5-5.1) mmol/L Carbon Dioxide (22-30) mmol/L BUN (9-20) mg/dL Creatinine (0.66-1.25) mg/dL Glucose (74-99) mg/dL POC Glucose (mg/dL) (75-99) mg/dL Plasma Lactic Acid Narayan (0.7-2.0) mmol/L Calcium (8.4-10.2) mg/dL Total Protein (6.3-8.2) g/dL Albumin (3.5-5.0) g/dL Procalcitonin (0.02-0.09) ng/mL Urine Blood Trace H (Negative) Ur Leukocyte Esterase Large H (Negative) Urine WBC 80 H (0-5) /hpf Urine WBC Clumps Few H (None) /hpf Urine Bacteria Many H (None) /hpf Urine Mucus Occasional H (None) /hpf Crossmatch See Detail 12/04/20 12/04/20 12/04/20 Range/Units 16:42 17:18 20:57 WBC 25.0 H (3.8-10.6) k/uL RBC 2.59 L (4.30-5.90) m/uL Hgb 8.4 L D (13.0-17.5) gm/dL Hct 23.7 L (39.0-53.0) % RDW 16.9 H (11.5-15.5) % Plt Count 90 L (150-450) k/uL Sodium (137-145) mmol/L Potassium (3.5-5.1) mmol/L Carbon Dioxide (22-30) mmol/L BUN (9-20) mg/dL Creatinine (0.66-1.25) mg/dL Glucose (74-99) mg/dL POC Glucose (mg/dL) 171 H 139 H (75-99) mg/dL Plasma Lactic Acid Narayan (0.7-2.0) mmol/L Calcium (8.4-10.2) mg/dL Total Protein (6.3-8.2) g/dL Albumin (3.5-5.0) g/dL Procalcitonin (0.02-0.09) ng/mL Urine Blood (Negative) Ur Leukocyte Esterase (Negative) Urine WBC (0-5) /hpf Urine WBC Clumps (None) /hpf Urine Bacteria (None) /hpf Urine Mucus (None) /hpf Crossmatch 12/05/20 12/05/20 12/05/20 Range/Units 02:27 02:27 02:27 WBC 25.1 H (3.8-10.6) k/uL RBC 2.39 L (4.30-5.90) m/uL Hgb 7.5 L (13.0-17.5) gm/dL Hct 22.6 L (39.0-53.0) % RDW 17.6 H (11.5-15.5) % Plt Count 95 L (150-450) k/uL Sodium 132 L (137-145) mmol/L Potassium 5.6 H (3.5-5.1) mmol/L Carbon Dioxide 14 L (22-30) mmol/L BUN 156 H* (9-20) mg/dL Creatinine 3.49 H (0.66-1.25) mg/dL Glucose 119 H (74-99) mg/dL POC Glucose (mg/dL) (75-99) mg/dL Plasma Lactic Acid Narayan 3.0 H* (0.7-2.0) mmol/L Calcium 6.0 L* (8.4-10.2) mg/dL Total Protein 4.2 L (6.3-8.2) g/dL Albumin 2.2 L (3.5-5.0) g/dL Procalcitonin (0.02-0.09) ng/mL Urine Blood (Negative) Ur Leukocyte Esterase (Negative) Urine WBC (0-5) /hpf Urine WBC Clumps (None) /hpf Urine Bacteria (None) /hpf Urine Mucus (None) /hpf Crossmatch 12/05/20 12/05/20 12/05/20 Range/Units 02:27 04:59 06:49 WBC (3.8-10.6) k/uL RBC (4.30-5.90) m/uL Hgb (13.0-17.5) gm/dL Hct (39.0-53.0) % RDW (11.5-15.5) % Plt Count (150-450) k/uL Sodium (137-145) mmol/L Potassium (3.5-5.1) mmol/L Carbon Dioxide (22-30) mmol/L BUN (9-20) mg/dL Creatinine (0.66-1.25) mg/dL Glucose (74-99) mg/dL POC Glucose (mg/dL) 145 H 135 H (75-99) mg/dL Plasma Lactic Acid Narayan (0.7-2.0) mmol/L Calcium (8.4-10.2) mg/dL Total Protein (6.3-8.2) g/dL Albumin (3.5-5.0) g/dL Procalcitonin 0.28 H (0.02-0.09) ng/mL Urine Blood (Negative) Ur Leukocyte Esterase (Negative) Urine WBC (0-5) /hpf Urine WBC Clumps (None) /hpf Urine Bacteria (None) /hpf Urine Mucus (None) /hpf Crossmatch 12/05/20 12/05/20 12/05/20 Range/Units 07:32 10:43 11:21 WBC (3.8-10.6) k/uL RBC (4.30-5.90) m/uL Hgb (13.0-17.5) gm/dL Hct (39.0-53.0) % RDW (11.5-15.5) % Plt Count (150-450) k/uL Sodium (137-145) mmol/L Potassium (3.5-5.1) mmol/L Carbon Dioxide (22-30) mmol/L BUN (9-20) mg/dL Creatinine (0.66-1.25) mg/dL Glucose (74-99) mg/dL POC Glucose (mg/dL) 142 H (75-99) mg/dL Plasma Lactic Acid Narayan 2.8 H* 2.6 H* (0.7-2.0) mmol/L Calcium (8.4-10.2) mg/dL Total Protein (6.3-8.2) g/dL Albumin (3.5-5.0) g/dL Procalcitonin (0.02-0.09) ng/mL Urine Blood (Negative) Ur Leukocyte Esterase (Negative) Urine WBC (0-5) /hpf Urine WBC Clumps (None) /hpf Urine Bacteria (None) /hpf Urine Mucus (None) /hpf Crossmatch Microbiology - Last 24 Hours (Table) 12/04/20 14:45 Urine Culture - Preliminary Urine,Voided 12/03/20 13:07 Blood Culture - Preliminary Blood No Growth after 24 hours Assessment and Plan Plan: Assessment: #1. acute COVID 19 related pneumonia with secondary shortness of breath and hypoxic respiratory failure the patient's symptoms of generalized weakness and dehydration, currently on 4 L of oxygen by nasal cannula, patient was started on Remdesivir on 11/20/2020, Toci on 11/29/2020 #2. acute hypoxic respiratory failure currently on 15 L of oxygen by nasal cannula #3. Rule out possibility of acute blood loss anemia, patient suddenly dropped his hemoglobin to 6.0, without clear source of bleeding, Lovenox was placed on hold. His hemoglobin was down to 6.0, patient received 2 units of pack red blood cells #4. Rule out possibility of sepsis possibly related to urinary tract infection #5. Hypothermia possibly related to sepsis #6. Coronary artery disease with previous positive bypass surgery #7. Mild troponin leak, could be related to Covid 19 infection #8. History of AICD placement #9. Hypothyroidism #10. Diabetes mellitus with diabetic retinopathy #11. 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 Gout #13. Anemia of chronic disease #14. Hypothyroidism #15. Acute kidney injury Plan: We'll check a TSH level Still no clear evidence of bleeding, today's hemoglobin and blood work has been noted Core body temperature has improved, patient is still hypothermic Suspect underlying sepsis possibly related to urinary tract infection Continue antibiotics per ID service recommendations From pulmonary perspective he appears to be quite comfortable, wean FiO2 to keep O2 sat at or above 90% Continue holding Lovenox, hematology has been consulted, mechanical DVT prophylaxi Overall prognosis is guarded I performed a history & physical examination of the patient and discussed their management with my nurse practitioner, Iza Mccarthy. I reviewed the nurse practitioner's note and agree with the documented findings and plan of care. Lung sounds are positive for bibasilar crackles. The findings and the impression was discussed with the patient. I attest to the documentation by the nurse practitioner. Time with Patient: Less than 30
--- NOTE | 2020-12-05 14:29 | PN ---
PROGRESS NOTE DATE OF SERVICE: 12/05/2020 REASON FOR FOLLOWUP: Pneumonia. INTERVAL HISTORY: The patient is afebrile. Mentioned he is feeling slightly better today. He is breathing comfortably. No worsening cough or sputum production. No abdominal pain or diarrhea. PHYSICAL EXAMINATION: Blood pressure 136/76, pulse 70, temperature 96.3. He is 100% on high-flow oxygen. General description is an is an elderly male lying in bed in no distress. RESPIRATORY SYSTEM: Unlabored breathing, clear to auscultation anteriorly. HEART: S1, S2. Regular rate and rhythm. ABDOMEN: Soft, no tenderness. LABS: Hemoglobin 7.5, white count 25.1. Lactic acid 2.6. BUN 156, creatinine 3.49. Procalcitonin mildly elevated at 0.28. DIAGNOSTIC IMPRESSION AND PLAN: Patient with acute respiratory failure which is multifactorial in this patient who did have COVID-19 infection, now with significant worsening and concern for possible nososomial infection. The patient is covered with Zyvox and cefepime, minimal improvement compared to yesterday and continue while awaiting for the culture to finalize and monitor clinical course closely. MMODL / IJN: [id number] / MTDD
[2020-12-05] MEDS: ACETAMINOPHEN TAB 325 MG TAB PO PRN ×2 (14:34→21:43)
[2020-12-05] MEDS: DEXTROSE 5% IN WATER 1,000 ML with SODIUM BICARB (1 MEQ/ML) 150 ML IV SCH (14:34)
--- NOTE | 2020-12-05 15:58 | P.PN ---
Subjective Progress Note Date: 12/05/20 Acute hypoxic respiratory failure due to COVID Pneumonia Mr. Pena is a 75-year-old male with a past medical history of hypothyroidism, Drs. Hoskins, gout, peripheral neuropathy, diabetic retinopathy, CK 80, coronary artery disease status post CABG and AICD coming in with a chief complaint of difficulty in breathing. Patient was tested positive for COVID-19. Patient was continued on Decadron, Lovenox, multivitamins along with respiratory support. He also had lower extremity Doppler that was negative for DVT. On 12/02/2020 - patient was seen and examined at the bedside. He is lying comfortably in bed appears to be in no acute distress. Patient complained of left thigh pain, he denied any swelling of his lower extremity. He was slightly confused and did not know where he was. He denied having any chest pain or palpitations. No headache nausea or vomiting. On reviewing the vitals temp erature of 97.4, heart rate 50s to 60s, respiratory rate 20, blood pressure 08/23/2064, saturating at 93% on 4 L high flow nasal cannula. On reviewing the labs sodium 136, potassium 4.2, chloride 102, bicarbonate 23, BUN 1:30, creatinine 2.78. On 12/03/2020 - earlier this morning [facility] team was activated as the patient had hypotension and hypothermia. Patient's temperature slowly trended down, he was given a beta boom to get his temperature up. And on repeating labs his hemoglobin was found to be 6.8 down from 10.3. Patient was given 1 L of fluid and 2 units of PRBCs and his blood pressure has been slowly trending up. He is still requiring 10 L of high flow nasal cannula. On talking to him, he states that he is in the hospital but is confused and could not have a full convers ation with him. On reviewing labs white count of 22, hemoglobin 6.8, platelets 106. Sodium 134, potassium 4.8, chloride 102, bicarb 18, BUN 136, creatinine 3.03 LDH 1654, CRP 0.9 AST 31, ALT 28, alkaline phosphatase 79. On 12/04/2020 - patient was seen and examined at bedside today. He is much more responsive compared to yesterday. He states that he has been feeling weak and tired. This morning his hemoglobin has been low at 6, with no evidence of any active bleeding. No hematemesis, no dark colored stool or blood in the stool. No complaints of abdominal pain. Patient received only 1 unit of PRBC yesterday. His blood cultures are currently pending. He is empirically started on vancomycin and cefepime. Will obtain urine analysis and urine culture with sensitivities. On reviewing his vitals temperature 97.2, heart rate 68, blood pressure 120/73, saturating at 93% on 7 L of high flow nasal cannula. On reviewing his labs white count of 22.2, hemoglobin 6.2, platelets 97. Sodium 131, but a gerda 5, chloride 106, bicarb 15, BUN 428, creatinine 3.36. Calcium 5.9. 12/05/2020 Patient seen and evaluated in follow-up this morning continues to be lethargic although slightly more alert but fatigues very easily. Patient currently under the bear hugger for low temps. Patient continues to be on 15 L high flow nasal cannula along with Airvo. Multiple medical consultations including pulmonary, nephrology, infectious disease following. Patient is maintained on Zyvox and cefepime and urine and blood cultures remain negative so far and awaiting for cultures to finalized. Lactic acid continues to be elevated at 2.6, white blood count is 25.1, hemoglobin is 7.5, sodium is 132, potassium is 5.6, BUN is 156 and creatinine is 3.49, and calcium is low at 6.0. Patient was given calcium gluconate along with bicarbonate and as mentioned previously nephrology is following. Patient's medications have been reviewed. Active Medications Acetaminophen (Acetaminophen Tab 325 Mg Tab) 650 mg PO Q6HR PRN PRN Reason: Fever and/ or Pain Last Admin: 12/05/20 14:34 Dose: 650 mg Documented by: Allopurinol (Allopurinol 100 Mg Tab) 100 mg PO W/SUPPER [facility] Last Admin: 12/04/20 16:54 Dose: 100 mg Documented by: Alprazolam (Alprazolam 0.25 Mg Tab) 0.25 mg PO Q8HR PRN PRN Reason: Anxiety Last Admin: 12/04/20 21:26 Dose: 0.25 mg Documented by: Ascorbic Acid (Ascorbic Acid 500 Mg Tab) 500 mg PO BID [facility] Last Admin: 12/05/20 08:12 Dose: 500 mg Documented by: Aspirin (Aspirin 81 Mg) 81 mg PO DAILY [facility] Last Admin: 12/05/20 08:12 Dose: 81 mg Documented by: Atorvastatin Calcium (Atorvastatin 40 Mg Tab) 40 mg PO HS [facility] Last Admin: 12/04/20 21:20 Dose: 40 mg Documented by: Carvedilol (Carvedilol 6.25 Mg Tab) 6.25 mg PO BID-W/MEALS [facility] Last Admin: 12/05/20 08:12 Dose: 6.25 mg Documented by: Cholecalciferol (Cholecalciferol 25 Mcg (1000 Iu) Tablet) 100 mcg PO DAILY [facility] Last Admin: 12/05/20 08:12 Dose: 100 mcg Documented by: Darbepoetin Rizwan (Darbepoetin Rizwan 40 Mcg/0.4 Ml Syringe) 40 mcg SQ Q7D [facility] Last Admin: 12/05/20 11:29 Dose: 40 mcg Documented by: Dexamethasone Sodium Phosphate (Dexamethasone Sod Phosphate 10 Mg/Ml 1 Ml Vial) 6 mg IV DAILY [facility] Last Admin: 12/05/20 08:10 Dose: 6 mg Documented by: Famotidine (Famotidine 20 Mg Tab) 20 mg PO DAILY [facility] Last Admin: 12/05/20 08:12 Dose: 20 mg Documented by: Ferrous Sulfate (Ferrous Sulfate 325 Mg Tab) 325 mg PO BID@1200,1800 [facility] Last Admin: 12/05/20 13:11 Dose: 325 mg Documented by: Cefepime HCl 1 gm/ Sodium (Chloride) 50 mls @ 12.5 mls/hr IVPB Q12HR [facility] Last Admin: 12/05/20 08:09 Dose: 12.5 mls/hr Documented by: Linezolid 600 mg/ IV Solution 300 mls @ 150 mls/hr IVPB Q12HR [facility]; Protocol Last Admin: 12/05/20 09:23 Dose: 150 mls/hr Documented by: Sodium Bicarbonate 150 ml/ (Dextrose/Water) 1,150 mls @ 50 mls/hr IV .Q23H [facility] Last Admin: 12/05/20 14:34 Dose: Not Given Documented by: Insulin Aspart (Insulin Aspart (Novolog) 100 Unit/Ml Vial) 0 unit SQ ACHS [facility]; Protocol Last Admin: 12/05/20 12:52 Dose: Not Given Documented by: Insulin Detemir (Insulin Detemir (Levemir) 100 Unit/Ml Syr) 35 unit SQ DAILY@0700 [facility] Last Admin: 12/05/20 08:12 Dose: 35 unit Documented by: Insulin Detemir (Insulin Detemir (Levemir) 100 Unit/Ml Syr) 35 unit SQ [facility] Last Admin: 12/04/20 21:19 Dose: Not Given Documented by: Levothyroxine Sodium (Levothyroxine 100 Mcg Tab) 100 mcg PO 0630 [facility] Last Admin: 12/05/20 05:48 Dose: 100 mcg Documented by: Naloxone HCl (Naloxone 0.4 Mg/Ml 1 Ml Vial) 0.2 mg IV Q2M PRN PRN Reason: Opioid Reversal Pantoprazole Sodium (Pantoprazole 40 Mg/10 Ml Vial) 40 mg IVP BID [facility] Last Admin: 12/05/20 08:09 Dose: 40 mg Documented by: Repaglinide (Repaglinide 1 Mg Tab) 0.25 mg PO AC-BID [facility] Last Admin: 12/05/20 08:12 Dose: 0.25 mg Documented by: Tamsulosin HCl (Tamsulosin 0.4 Mg Cap.Er.24h) 0.4 mg PO [facility] Last Admin: 12/04/20 21:20 Dose: 0.4 mg Documented by: Zinc Sulfate (Zinc Sulfate 220 Mg Cap) 220 mg PO DAILY [facility] Last Admin: 12/05/20 08:13 Dose: 220 mg Documented by: Objective - Vital Signs Vital signs: Vital Signs Temp 97.1 F L 12/05/20 06:00 Pulse 72 12/05/20 06:00 Resp 22 12/05/20 06:00 BP 111/57 12/05/20 06:00 Pulse Ox 98 12/05/20 06:00 Intake & Output 12/04/20 12/05/20 12/05/20 18:59 06:59 18:59 Intake Total 310 Output Total 250 450 Balance 60 -450 Intake: Blood Product 310 Rc As-1 Unit 310 [id number] Output: Urine 250 450 Other: Voiding Method External Catheter External Catheter - Exam GENERAL: The patient is alert and oriented x2- 3, not in any acute distress. on a cameron hugger HEENT: Pupils are round and equally reacting to light. EOMI. No scleral icterus.. Positive pallor CARDIOVASCULAR: S1 and S2 present. No murmurs, rubs, or gallops. PULMONARY: Bilateral rhonchi with basal crackles ABDOMEN: Soft, nontender, nondistended, normoactive bowel sounds. No palpable organomegaly. MUSCULOSKELETAL: No joint swelling or deformity. EXTREMITIES: No cyanosis, clubbing, or pedal edema. NEUROLOGICAL: Gross neurological examination did not reveal any focal deficits. SKIN: No rashes. no petechiae. - Labs CBC & Chem 7: 12/05/20 02:27 12/05/20 02:27 Labs: Abnormal Lab Results - Last 24 Hours (Table) 12/03/20 12/04/20 12/04/20 Range/Units 09:07 07:46 11:56 WBC 23.62 H (4.50-10.00) X 10*3/uL RBC 1.88 L (4.40-5.60) X 10*6/uL Hgb 6.0 L* (13.0-17.0) g/dL Hct 18.2 L* (39.6-50.0) % RDW 17.9 H (11.5-14.5) % Plt Count 93 L (140-440) X 10*3/uL MPV 13.6 H (9.5-12.2) fL Absolute Nucleated RBC 0.02 H (0.00-0.00) X 10*3/uL Immature Gran # 0.57 H (0.00-0.04) X 10*3/uL Neutrophils # 21.55 H (1.80-7.70) X 10*3/uL Lymphocytes # 0.48 L (0.90-5.00) X 10*3/uL Monocytes # 1.01 H (0.20-1.00) X 10*3/uL Eosinophils # 0 L (0.04-0.35) X 10*3/uL NRBC/100 WBC Diff 0.1 H (0.0-0.0) /100 WBCS Sodium (137-145) mmol/L Potassium (3.5-5.1) mmol/L Carbon Dioxide (22-30) mmol/L BUN (9-20) mg/dL Creatinine (0.66-1.25) mg/dL Glucose (74-99) mg/dL POC Glucose (mg/dL) 200 H (75-99) mg/dL Plasma Lactic Acid Narayan (0.7-2.0) mmol/L Calcium (8.4-10.2) mg/dL Total Protein (6.3-8.2) g/dL Albumin (3.5-5.0) g/dL Urine Blood (Negative) Ur Leukocyte Esterase (Negative) Urine WBC (0-5) /hpf Urine WBC Clumps (None) /hpf Urine Bacteria (None) /hpf Urine Mucus (None) /hpf Crossmatch See Detail 12/04/20 12/04/20 12/04/20 Range/Units 13:44 14:45 16:42 WBC 22.2 H (4.50-10.00) X 10*3/uL RBC 1.99 L (4.40-5.60) X 10*6/uL Hgb 6.2 L* (13.0-17.0) g/dL Hct 19.1 L* (39.6-50.0) % RDW 18.4 H (11.5-14.5) % Plt Count 97 L (140-440) X 10*3/uL MPV (9.5-12.2) fL Absolute Nucleated RBC (0.00-0.00) X 10*3/uL Immature Gran # (0.00-0.04) X 10*3/uL Neutrophils # (1.80-7.70) X 10*3/uL Lymphocytes # (0.90-5.00) X 10*3/uL Monocytes # (0.20-1.00) X 10*3/uL Eosinophils # (0.04-0.35) X 10*3/uL NRBC/100 WBC Diff (0.0-0.0) /100 WBCS Sodium (137-145) mmol/L Potassium (3.5-5.1) mmol/L Carbon Dioxide (22-30) mmol/L BUN (9-20) mg/dL Creatinine (0.66-1.25) mg/dL Glucose (74-99) mg/dL POC Glucose (mg/dL) 171 H (75-99) mg/dL Plasma Lactic Acid Narayan (0.7-2.0) mmol/L Calcium (8.4-10.2) mg/dL Total Protein (6.3-8.2) g/dL Albumin (3.5-5.0) g/dL Urine Blood Trace H (Negative) Ur Leukocyte Esterase Large H (Negative) Urine WBC 80 H (0-5) /hpf Urine WBC Clumps Few H (None) /hpf Urine Bacteria Many H (None) /hpf Urine Mucus Occasional H (None) /hpf Crossmatch 12/04/20 12/04/20 12/05/20 Range/Units 17:18 20:57 02:27 WBC 25.0 H (4.50-10.00) X 10*3/uL RBC 2.59 L (4.40-5.60) X 10*6/uL Hgb 8.4 L D (13.0-17.0) g/dL Hct 23.7 L (39.6-50.0) % RDW 16.9 H (11.5-14.5) % Plt Count 90 L (140-440) X 10*3/uL MPV (9.5-12.2) fL Absolute Nucleated RBC (0.00-0.00) X 10*3/uL Immature Gran # (0.00-0.04) X 10*3/uL Neutrophils # (1.80-7.70) X 10*3/uL Lymphocytes # (0.90-5.00) X 10*3/uL Monocytes # (0.20-1.00) X 10*3/uL Eosinophils # (0.04-0.35) X 10*3/uL NRBC/100 WBC Diff (0.0-0.0) /100 WBCS Sodium 132 L (137-145) mmol/L Potassium 5.6 H (3.5-5.1) mmol/L Carbon Dioxide 14 L (22-30) mmol/L BUN 156 H* (9-20) mg/dL Creatinine 3.49 H (0.66-1.25) mg/dL Glucose 119 H (74-99) mg/dL POC Glucose (mg/dL) 139 H (75-99) mg/dL Plasma Lactic Acid Narayan (0.7-2.0) mmol/L Calcium 6.0 L* (8.4-10.2) mg/dL Total Protein 4.2 L (6.3-8.2) g/dL Albumin 2.2 L (3.5-5.0) g/dL Urine Blood (Negative) Ur Leukocyte Esterase (Negative) Urine WBC (0-5) /hpf Urine WBC Clumps (None) /hpf Urine Bacteria (None) /hpf Urine Mucus (None) /hpf Crossmatch 12/05/20 12/05/20 12/05/20 Range/Units 02:27 02:27 04:59 WBC 25.1 H (4.50-10.00) X 10*3/uL RBC 2.39 L (4.40-5.60) X 10*6/uL Hgb 7.5 L (13.0-17.0) g/dL Hct 22.6 L (39.6-50.0) % RDW 17.6 H (11.5-14.5) % Plt Count 95 L (140-440) X 10*3/uL MPV (9.5-12.2) fL Absolute Nucleated RBC (0.00-0.00) X 10*3/uL Immature Gran # (0.00-0.04) X 10*3/uL Neutrophils # (1.80-7.70) X 10*3/uL Lymphocytes # (0.90-5.00) X 10*3/uL Monocytes # (0.20-1.00) X 10*3/uL Eosinophils # (0.04-0.35) X 10*3/uL NRBC/100 WBC Diff (0.0-0.0) /100 WBCS Sodium (137-145) mmol/L Potassium (3.5-5.1) mmol/L Carbon Dioxide (22-30) mmol/L BUN (9-20) mg/dL Creatinine (0.66-1.25) mg/dL Glucose (74-99) mg/dL POC Glucose (mg/dL) 145 H (75-99) mg/dL Plasma Lactic Acid Narayan 3.0 H* (0.7-2.0) mmol/L Calcium (8.4-10.2) mg/dL Total Protein (6.3-8.2) g/dL Albumin (3.5-5.0) g/dL Urine Blood (Negative) Ur Leukocyte Esterase (Negative) Urine WBC (0-5) /hpf Urine WBC Clumps (None) /hpf Urine Bacteria (None) /hpf Urine Mucus (None) /hpf Crossmatch 12/05/20 12/05/20 Range/Units 06:49 07:32 WBC (4.50-10.00) X 10*3/uL RBC (4.40-5.60) X 10*6/uL Hgb (13.0-17.0) g/dL Hct (39.6-50.0) % RDW (11.5-14.5) % Plt Count (140-440) X 10*3/uL MPV (9.5-12.2) fL Absolute Nucleated RBC (0.00-0.00) X 10*3/uL Immature Gran # (0.00-0.04) X 10*3/uL Neutrophils # (1.80-7.70) X 10*3/uL Lymphocytes # (0.90-5.00) X 10*3/uL Monocytes # (0.20-1.00) X 10*3/uL Eosinophils # (0.04-0.35) X 10*3/uL NRBC/100 WBC Diff (0.0-0.0) /100 WBCS Sodium (137-145) mmol/L Potassium (3.5-5.1) mmol/L Carbon Dioxide (22-30) mmol/L BUN (9-20) mg/dL Creatinine (0.66-1.25) mg/dL Glucose (74-99) mg/dL POC Glucose (mg/dL) 135 H (75-99) mg/dL Plasma Lactic Acid Narayan 2.8 H* (0.7-2.0) mmol/L Calcium (8.4-10.2) mg/dL Total Protein (6.3-8.2) g/dL Albumin (3.5-5.0) g/dL Urine Blood (Negative) Ur Leukocyte Esterase (Negative) Urine WBC (0-5) /hpf Urine WBC Clumps (None) /hpf Urine Bacteria (None) /hpf Urine Mucus (None) /hpf Crossmatch Microbiology - Last 24 Hours (Table) 12/04/20 14:45 Urine Culture - Preliminary Urine,Voided 12/03/20 13:07 Blood Culture - Preliminary Blood No Growth after 24 hours Assessment and Plan Assessment: Acute hypoxic respiratory failure secondary to COVID-19 pneumonia Hypothermia Hypotension Acute blood loss anemia ? GI bleed Thrombocytopenia Elevated inflammatory markers Acute kidney injury CKD with diabetic nephropathy and neuropathy Diabetes mellitus Troponin leak CAD with Coronary artery bypass grafting History of AICD placement Any of chronic disease Hypothyroidism History of gout PLAN: Patient Remdesivir on 11/20/2020, Toci on 11/29/2020. He is in the cameron hugger. Blood cultures continue to show negative. Patient is maintained on Zyvox and cefepime with infectious disease following. Patient's hemoglobin is 7.5 this morning, will transfuse if less than 7. He was empirically started on Zyvox and cefepime, Also there was drop in platelets, his Lovenox has been discontinued. Hematology has been consulted. Will follow inflammatory markers and continue to monitor CBC and electrolytes. Patient to be continued on Decad peace. Patient's BUN and creatinine still elevated, nephrology on board and following closely. We will follow up on inflammatory markers. Continue with GI DVT prophylaxis. Overall prognosis is guarded due to multiple chronic medical conditions. Further recommendations to follow depending on the progress of the patient.
[2020-12-05 16:29] LABS: Glucose,Whole Blood 151 mg/dL (75-99)
[2020-12-05] MEDS: allopurinoL 100 MG TAB PO SCH (17:12)
--- NOTE | 2020-12-05 19:41 | CONS ---
CONSULTATION DATE OF SERVICE: 12/05/2020 REQUESTING PHYSICIAN: Dr. Fritz and Dr. Horta. REASON FOR CONSULTATION: Severe anemia/drop in hemoglobin. HISTORY OF PRESENT ILLNESS: The patient is a 75-year-old pleasant white male who was admitted to the hospital 2 1/2 weeks ago when he presented with acute COVID-19 pneumonia. He presented with fever, decreased appetite, some diarrhea and was tested positive for coronavirus PCR on 11/19. Since then he has been in the hospital, being treated with antibiotics. On Lovenox for therapeutic anticoagulation. The patient has been on high-flow oxygen and slowly he is gradually improving. He was also given remdesivir and dexamethasone. ID is following the patient closely. During the course of hospitalization, he gradually dropped his hemoglobin. His baseline hemoglobin was around 10 g/dL but 2 days ago, hemoglobin dropped to 6 g/dL requiring 2 units of PRBC transfusion. The patient, however, denies any rectal bleeding or melena. He reports no abdominal pain. No nausea, no vomiting. He does not recall having any peptic ulcer disease in the past and denies any recent NSAID use. He got 2 units of PRBC transfusion on December 04 and repeat CBC today is 7.5 g/dL. Lovenox has been on hold since yesterday because of significant sudden drop in hemoglobin. PAST MEDICAL HISTORY: Significant for hypertension, hyperlipidemia, diabetes mellitus, hypothyroidism, chronic kidney disease, stage IV. PAST SURGICAL HISTORY: Coronary artery bypass surgery, AICD implantation, bilateral cataract surgery. MEDICATIONS: Medications at home include aspirin, Coreg, Zyloprim, Rocaltrol, Lipitor, Prandin, spironolactone, Synthroid, Procrit, iron sulfate, and vitamin D3. SOCIAL HISTORY: No smoking. No alcohol use. FAMILY HISTORY: Father had some kind of cancer. Brother also had some kind of cancer. REVIEW OF SYSTEMS: CARDIOPULMONARY: No chest pain. He does complain of some shortness of breath, presently on 4 liters of nasal cannula. ENT/VISION: Unremarkable. MUSCULOSKELETAL: Unremarkable. SKIN: Unremarkable. ENDOCRINE: Unremarkable other than hypothyroidism and diabetes mellitus. PSYCHIATRIC: Unremarkable. NEUROLOGY: Unremarkable. CONSTITUTIONAL: Some weight loss but no fevers, chills or night sweats currently. HEMATOLOGY: Anemia of chronic disease. PHYSICAL EXAMINATION: GENERAL: He appears very comfortable. No apparent distress. VITAL SIGNS: Stable. Blood pressure 104/62, pulse rate 68, T-max 96.2. HEENT: Examination unremarkable. Conjunctivae are pale. Sclerae anicteric. Oral cavity no lesions. NECK: No JVD or lymph node enlargement. CHEST: Clear to auscultation. HEART: Regular rate and rhythm. ABDOMEN: Soft, bowel sounds were positive. No organomegaly. EXTREMITIES: No pedal edema. NEURO: He is alert and oriented x3. No focal deficits. LABS: Labs done 2 days ago show hemoglobin was 6.8, WBC 22.1, and platelets are 106. BUN and creatinine are 136 and 3.03 respectively. LDH is 1654. AST, ALT, T-bilirubin and alkaline phosphatase are within normal limits. Hemoglobin today 7.5 g/dL. WBC 25.1 and platelets 95,000. IMPRESSION: 1. Anemia with gradual drop in hemoglobin through the course of hospitalization with acute drop 2 days ago. Hemoglobin was 6 g/dL. Baseline hemoglobin is between 8 and 9 g/dL. He has seen Dr. Cotto on an outpatient basis for anemia of chronic disease. He received 2 units of PRBC transfusion yesterday and today hemoglobin is 7.4 g/dL. According to the patient, there was no evidence of active GI bleed. Most likely we are dealing with anemia of chronic disease. 2. COVID-19 pneumonia. Presently on IV dexamethasone and broad-spectrum antibiotics. 3. Chronic kidney disease, stage 4 with acute kidney injury superimposed with worsening BUN and creatinine. Dr. Mujica following the patient closely. 4. Longstanding history of diabetes mellitus. 5. History of hypertension and hyperlipidemia. RECOMMENDATIONS: 1. Agree with PRBC transfusion. 2. Monitor CBC daily. 3. Continue with Protonix. 4. Since the patient does not have any active ongoing bleeding, I do not plan on any endoscopic intervention at the present time. 5. Monitor CBC closely. 6. If the hemoglobin remained stable tomorrow, we can restart him back on Lovenox for anticoagulation. 7. Obtain stool for Hemoccult. 8. We will follow with you closely. Thank you for this consultation. MMODL / IJN: [id number] /
[2020-12-05 20:37] LABS: Glucose,Whole Blood 197 mg/dL (75-99)
[2020-12-05] MEDS ORDERED: SODIUM CHLORIDE 0.9% 500 ML 250 ML IV ONE (20:52)
[2020-12-05] MEDS: ALPRAZolam 0.25 MG TAB PO PRN (21:43)
[2020-12-05] MEDS: ATORVASTATIN 40 MG TAB PO SCH (21:43)
[2020-12-05] MEDS: TAMSULOSIN 0.4 MG CAP.ER.24H PO SCH (21:43)
[2020-12-06] MEDS: LEVOTHYROXINE 100 MCG TAB PO SCH (05:04)
[2020-12-06 06:30] LABS: Anisocytosis Slight; MCH 32.4 pg (25.0-35.0); MCHC 35.2 g/dL (31.0-37.0); MCV 92.1 fL (80.0-100.0); Mean Platelet Volume 10.1; Platelet Count 77 k/uL (150-450); RBC 1.89 m/uL (4.30-5.90); RDW 18.3 % (11.5-15.5); WBC 20.6 k/uL (3.8-10.6)
[2020-12-06 06:42] LABS: ALT 36 U/L (4-49); AST 52 U/L (17-59); African American GFR (CKD) 18 (>60 ml/min/1.73 sqM); Albumin 2.1 g/dL (3.5-5.0); Albumin/Globulin Ratio 1.1; Alkaline Phosphatase 63 U/L (38-126); Anion Gap 10 mmol/L; Carbon Dioxide 21 mmol/L (22-30); Chloride 104 mmol/L (98-107); Globulin 1.9 g/dL; Glucose 127 mg/dL (74-99); Magnesium 2.2 mg/dL (1.6-2.3); Non-African American GFR(CKD) 16 (>60 ml/min/1.73 sqM); Sodium 135 mmol/L (137-145); Total Bilirubin 0.5 mg/dL (0.2-1.3)
[2020-12-06 06:56] LABS: Blood Urea Nitrogen 151 mg/dL (9-20)
[2020-12-06 06:58] LABS: Calcium 5.8 mg/dL (8.4-10.2)
[2020-12-06 07:11] LABS: Glucose,Whole Blood 163 mg/dL (75-99)
[2020-12-06 07:14] LABS: HCT 17.4 % (39.0-53.0); HGB 6.1 gm/dL (13.0-17.5)
[2020-12-06] MEDS ORDERED: CALCIUM GLUCONATE 2 GM in SODIUM CHLORIDE 0.9% 100 ML IVPB ONE (07:38)
[2020-12-06] MEDS: INSULIN ASPART (NovoLOG) 100 UNIT/ML VIAL SQ SCH ×4 (08:01→20:28)
[2020-12-06] MEDS: CHOLECALCIFEROL 25 MCG (1000 IU) TABLET PO SCH (08:03)
[2020-12-06] MEDS: carvediloL 6.25 MG TAB PO SCH ×2 (08:03→16:48)
[2020-12-06] MEDS: INSULIN DETEMIR (LEVEMIR) 100 UNIT/ML SYR SQ SCH ×2 (08:03→20:28)
[2020-12-06] MEDS: ASPIRIN 81 MG PO SCH (08:03)
[2020-12-06] MEDS: ASCORBIC ACID 500 MG TAB PO SCH ×2 (08:04→20:43)
[2020-12-06] MEDS: FAMOTIDINE 20 MG TAB PO SCH (08:04)
[2020-12-06] MEDS: ZINC SULFATE 220 MG CAP PO SCH (08:04)
[2020-12-06] MEDS: PANTOPRAZOLE 40 MG/10 ML VIAL IVP SCH ×2 (08:05→20:43)
[2020-12-06] MEDS: REPAGLINIDE 1 MG TAB PO SCH ×2 (08:05→16:49)
[2020-12-06] MEDS: DEXAMETHASONE SOD PHOSPHATE 10 MG/ML 1 ML VIAL IV SCH (08:06)
[2020-12-06] MEDS: CEFEPIME 1 GM in SODIUM CHLORIDE 0.9% 50 ML IVPB SCH ×2 (08:07→20:42)
[2020-12-06] MEDS: LINEZOLID 600 MG in DEXTROSE/WATER 1 300ML.BAG IVPB SCH ×2 (08:08→20:43)
[2020-12-06 11:24] LABS: Glucose,Whole Blood 189 mg/dL (75-99)
[2020-12-06] MEDS: FERROUS SULFATE 325 MG TAB PO SCH ×2 (11:53→16:49)
[2020-12-06] MEDS: DEXTROSE 5% IN WATER 1,000 ML with SODIUM BICARB (1 MEQ/ML) 150 ML IV SCH (11:54)
--- NOTE | 2020-12-06 12:38 | P.PN ---
Subjective Patient is seen in follow for acute kidney injury on chronic kidney disease. Renal function slightly worse. Creatinine 3.61 today. Hemoglobin 6.1 today. Currently receiving a unit of blood. Nonoliguric. Urine output 700 mL overnight. Currently on Airvo. Vital signs stable. General: The patient appeared well nourished and normally developed. HEENT: Head exam is unremarkable. Neck is without jugular venous distension. LUNGS: Breath sounds decreased. HEART: Rate and Rhythm are regular. ABDOMEN: Soft, nondistended. EXTREMITITES: No edema. Objective - Vital Signs Vital signs: Vital Signs Temp 99.3 F 12/06/20 11:25 Pulse 77 12/06/20 10:55 Resp 20 12/06/20 09:54 BP 117/65 12/06/20 11:25 Pulse Ox 93 L 12/06/20 11:25 Intake & Output 12/05/20 12/06/20 12/06/20 18:59 06:59 18:59 Intake Total 0 Output Total 475 1000 Balance -475 -1000 0 Intake: Blood Product 0 Rc Cpda-1 Unit 0 [id number] Output: Urine 475 1000 Other: Voiding Method Indwelling Catheter Indwelling Catheter Indwelling Catheter - Labs CBC & Chem 7: 12/06/20 06:16 12/06/20 06:16 Labs: Abnormal Lab Results - Last 24 Hours (Table) 12/03/20 12/05/20 12/05/20 Range/Units 09:07 16:28 17:14 WBC (3.8-10.6) k/uL RBC (4.30-5.90) m/uL Hgb (13.0-17.5) gm/dL Hct (39.0-53.0) % RDW (11.5-15.5) % Plt Count (150-450) k/uL Sodium (137-145) mmol/L Carbon Dioxide (22-30) mmol/L BUN (9-20) mg/dL Creatinine (0.66-1.25) mg/dL Glucose (74-99) mg/dL POC Glucose (mg/dL) 151 H (75-99) mg/dL Plasma Lactic Acid Narayan 3.0 H* (0.7-2.0) mmol/L Calcium (8.4-10.2) mg/dL Total Protein (6.3-8.2) g/dL Albumin (3.5-5.0) g/dL Crossmatch See Detail 12/05/20 12/05/20 12/06/20 Range/Units 20:15 20:36 06:16 WBC (3.8-10.6) k/uL RBC (4.30-5.90) m/uL Hgb (13.0-17.5) gm/dL Hct (39.0-53.0) % RDW (11.5-15.5) % Plt Count (150-450) k/uL Sodium (137-145) mmol/L Carbon Dioxide (22-30) mmol/L BUN (9-20) mg/dL Creatinine (0.66-1.25) mg/dL Glucose (74-99) mg/dL POC Glucose (mg/dL) 197 H (75-99) mg/dL Plasma Lactic Acid Narayan 3.5 H* 3.1 H* (0.7-2.0) mmol/L Calcium (8.4-10.2) mg/dL Total Protein (6.3-8.2) g/dL Albumin (3.5-5.0) g/dL Crossmatch 12/06/20 12/06/20 12/06/20 Range/Units 06:16 06:16 06:55 WBC 20.6 H (3.8-10.6) k/uL RBC 1.89 L (4.30-5.90) m/uL Hgb 6.1 L* (13.0-17.5) gm/dL Hct 17.4 L* (39.0-53.0) % RDW 18.3 H (11.5-15.5) % Plt Count 77 L (150-450) k/uL Sodium 135 L (137-145) mmol/L Carbon Dioxide 21 L (22-30) mmol/L BUN 151 H* (9-20) mg/dL Creatinine 3.61 H (0.66-1.25) mg/dL Glucose 127 H (74-99) mg/dL POC Glucose (mg/dL) 163 H (75-99) mg/dL Plasma Lactic Acid Narayan (0.7-2.0) mmol/L Calcium 5.8 L* (8.4-10.2) mg/dL Total Protein 4.0 L (6.3-8.2) g/dL Albumin 2.1 L (3.5-5.0) g/dL Crossmatch 12/06/20 Range/Units 11:23 WBC (3.8-10.6) k/uL RBC (4.30-5.90) m/uL Hgb (13.0-17.5) gm/dL Hct (39.0-53.0) % RDW (11.5-15.5) % Plt Count (150-450) k/uL Sodium (137-145) mmol/L Carbon Dioxide (22-30) mmol/L BUN (9-20) mg/dL Creatinine (0.66-1.25) mg/dL Glucose (74-99) mg/dL POC Glucose (mg/dL) 189 H (75-99) mg/dL Plasma Lactic Acid Narayan (0.7-2.0) mmol/L Calcium (8.4-10.2) mg/dL Total Protein (6.3-8.2) g/dL Albumin (3.5-5.0) g/dL Crossmatch Microbiology - Last 24 Hours (Table) 12/05/20 02:27 Blood Culture - Preliminary Blood No Growth after 24 hours 12/04/20 14:45 Urine Culture - Preliminary Urine,Voided Gram Neg Bacilli 12/03/20 13:07 Blood Culture - Preliminary Blood No Growth after 48 hours Assessment and Plan Plan: Assessment: 1. Acute kidney injury secondary to ATN secondary to Covid 19 infection, hypotension and acute blood loss anemia. Creatinine 3.61 today. No hydronephrosis noted on kidney ultrasound. Elevated BUN due to steroids, chronic kidney disease and GI bleed. 2. 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 Creatinine 2.0 in August 2020. 3. Covid 19 infection. Maintained on steroids, zinc. Currently on airvo. 4. Diabetes mellitus. 5. Metabolic acidosis secondary to acute kidney injury and lactic acidosis. Fluid bolus was given this morning. Improved. 6. Hyponatremia secondary to acute kidney injury. Possible SIADH from r espiratory infection. Better. 7. Acute blood loss anemia. Maintained on Aranesp. Status post blood transfusion on December 04 and receiving another unit today. Status post IV DDAVP December 04. GI and hematology following. 8. Hypocalcemia secondary to acute kidney injury. Corrected calcium near 7.4. Replaced. Plan: Maintain bicarb drip. Wean FiO2. Continue to monitor renal function and urine output. Continue to assess daily for need for renal replacement therapy. Repeat DDAVP today. Check phosphorus level.
[2020-12-06] MEDS ORDERED: DESMOPRESSIN ACETATE 22 MCG in SODIUM CHLORIDE 0.9% 50 ML IVPB ONE (13:00)
[2020-12-06 14:13] LABS: Reticulocyte % 4.8 % (0.5-2.0)
--- NOTE | 2020-12-06 14:50 | CT ---
EXAMINATION TYPE: CT abdomen pelvis wo con DATE OF EXAM: 12/06/2020 HISTORY: hgb drops; blood loss. CT DLP: 817.7 mGycm. Automated Exposure Control for Dose Reduction was Utilized. TECHNIQUE: CT scan of the abdomen and pelvis is performed without oral or IV contrast. COMPARISON: Chest x-ray 2 days ago FINDINGS: Within the limitations of a non-contrast study, the following observations are made. LUNG BASES: Partial visualization of cardiomegaly and right-sided pacemaker wires. Partial visualizat ion of inferior sternal wires. Partial visualization of subareolar left-sided flank shape gynecomasti a. There are multiple tiny bilateral pleural effusions partially imaged. There are areas of groundgla ss opacity and consolidations with air bronchograms in the lower lungs. Correlate clinically. LIVER/GB: Suspect calcifications centrally in the liver coronal image 55 there is dependent 8mm calcu maria de jesus in gallbladder axial image 27. Gallbladder shows no surrounding inflammatory change. PANCREAS: Mild ill-defined fluid and fat stranding surrounds pancreas. Focal mild to moderate atrophy in the inferior head and uncinate process SPLEEN: No significant abnormality is seen. ADRENALS: No significant abnormality is seen. KIDNEYS: Marked cortical thinning in both kidneys. Diminished size to both kidneys. No hydronephrosis seen bilaterally. Husain catheter in bladder which is not completely decompressed. Nondependent air. Mild to moderate wall thickening greatest anterior superior aspect. BOWEL: Suboptimal evaluation without enteric contrast. No suspicious small or large bowel dilatation. Small sized hiatal hernia. Stomach poorly distended and thus suboptimally evaluated. Slightly redund ant sigmoid colon. GENITAL ORGANS: Prostate gland normal in size. LYMPH NODES: No greater than 1cm abdominal or pelvic lymph nodes are appreciated. OSSEOUS STRUCTURES: Moderate axial joint space loss in both hips with mild to moderate acetabular spu rring. OTHER: Mild calcified plaque of the aorta extends into branch vessels. More severe calcified plaque i n smaller branch vessels. Left pelvis is abnormal with heterogeneous fluid collection in distinct from left iliopsoas muscle me asuring approximately 7 x 5.5 cm axial image 114 by at least 13 cm in length coronal image 52. There is mild to moderate surrounding ill-defined fluid and fat stranding. Finding consistent with early m oderate size left pelvic retroperitoneal hematoma. Some extension past left groin region into proxima l thigh thought present. IMPRESSION: 1. Confirmation of at least fairly moderate to large size left pelvic retroperitoneal hematoma with l ocal mass effect, heterogeneity suggests subacute or possible acute on chronic etiology. Correlate cl inically. 2. Possible mild acute pancreatitis, correlate clinically. Suboptimal evaluation without enteric cont rast. Result #1 Communicated to patient's nurse via telephone at time of dictation. A Document Only message has been documented for Grey Farrised in the [employer] Critical Result system on 12/06/2020 2:47 PM, Message ID [id number].
--- NOTE | 2020-12-06 15:36 | P.PN ---
Subjective Progress Note Date: 12/06/20 Principal diagnosis: Drop in hemoglobin, anemia Pleasant 75-year-old white male who was admitted to the hospital over 2 weeks ago with acute COVID-19 pneumonia. He tested positive for Crohn virus PCR and 11/19/20, since then he has been in the hospital being treated with antibiotics. He was on Lovenox prophylactically, it has been discontinued. The patient remains on high flow oxygen and had some gradual improvement. He initially had high fevers, infectious diseases on consult and following patient closely. Patient has been hypothermic and has had a bear hugger on. Gastroenterology was asked to see the patient as he had a drop in his hemoglobin to 6.0 from 10, he has been transfused with 2 units of PRBC transfusion. Today again he had another drop in his hemoglobin to 6.1, he is getting another unit of PRBC transfusion. He continues to deny any signs of a GI bleed, he denies any melena, rectal bleeding, nausea, or vomiting. He recalls having a colonoscopy 4 -[address] Darling, does not recall any problems. Oncology is on consult, patient is known to Dr. jose posada for chronic anemia and states he gets blood transfusions every 3 weeks. Objective - Vital Signs Vital signs: Vital Signs Temp 97.3 F L 12/06/20 14:54 Pulse 77 12/06/20 14:54 Resp 20 12/06/20 09:54 BP 130/72 12/06/20 14:54 Pulse Ox 95 12/06/20 14:54 Intake & Output 12/05/20 12/06/20 12/06/20 18:59 06:59 18:59 Intake Total 310 Output Total 475 1000 Balance -475 -1000 310 Intake: Blood Product 310 Rc Cpda-1 Unit 310 [id number] Rc Pheresis As-3 Unit 0 [id number] Output: Urine 475 1000 Other: Voiding Method Indwelling Catheter Indwelling Catheter Indwelling Catheter - Exam General appearance: The patient is alert, oriented, appears in no acute distr ess. Bear hugger in place. HET: Head is normocephalic and atraumatic. Conjunctiva pink. Sclera anicteric. Neck: Supple without lymphadenopathy. Abdomen: Soft, nontender, nondistended with bowel sounds. No guarding or rigidity. Extremities: Normal skin color and turgor. No pedal edema Skin: No rashes, no jaundice Neurological: No focal deficits. Alert and oriented 3. - Labs CBC & Chem 7: 12/06/20 06:16 12/06/20 06:16 Labs: Abnormal Lab Results - Last 24 Hours (Table) 12/03/20 12/05/20 12/05/20 Range/Units 09:07 16:28 17:14 WBC (3.8-10.6) k/uL RBC (4.30-5.90) m/uL Hgb (13.0-17.5) gm/dL Hct (39.0-53.0) % RDW (11.5-15.5) % Plt Count (150-450) k/uL Retic Count (0.5-2.0) % Sodium (137-145) mmol/L Carbon Dioxide (22-30) mmol/L BUN (9-20) mg/dL Creatinine (0.66-1.25) mg/dL Glucose (74-99) mg/dL POC Glucose (mg/dL) 151 H (75-99) mg/dL Plasma Lactic Acid Narayan 3.0 H* (0.7-2.0) mmol/L Calcium (8.4-10.2) mg/dL Total Protein (6.3-8.2) g/dL Albumin (3.5-5.0) g/dL Crossmatch See Detail 12/05/20 12/05/20 12/06/20 Range/Units 20:15 20:36 06:16 WBC (3.8-10.6) k/uL RBC (4.30-5.90) m/uL Hgb (13.0-17.5) gm/dL Hct (39.0-53.0) % RDW (11.5-15.5) % Plt Count (150-450) k/uL Retic Count (0.5-2.0) % Sodium (137-145) mmol/L Carbon Dioxide (22-30) mmol/L BUN (9-20) mg/dL Creatinine (0.66-1.25) mg/dL Glucose (74-99) mg/dL POC Glucose (mg/dL) 197 H (75-99) mg/dL Plasma Lactic Acid Narayan 3.5 H* 3.1 H* (0.7-2.0) mmol/L Calcium (8.4-10.2) mg/dL Total Protein (6.3-8.2) g/dL Albumin (3.5-5.0) g/dL Crossmatch 12/06/20 12/06/20 12/06/20 Range/Units 06:16 06:16 06:55 WBC 20.6 H (3.8-10.6) k/uL RBC 1.89 L (4.30-5.90) m/uL Hgb 6.1 L* (13.0-17.5) gm/dL Hct 17.4 L* (39.0-53.0) % RDW 18.3 H (11.5-15.5) % Plt Count 77 L (150-450) k/uL Retic Count (0.5-2.0) % Sodium 135 L (137-145) mmol/L Carbon Dioxide 21 L (22-30) mmol/L BUN 151 H* (9-20) mg/dL Creatinine 3.61 H (0.66-1.25) mg/dL Glucose 127 H (74-99) mg/dL POC Glucose (mg/dL) 163 H (75-99) mg/dL Plasma Lactic Acid Narayan (0.7-2.0) mmol/L Calcium 5.8 L* (8.4-10.2) mg/dL Total Protein 4.0 L (6.3-8.2) g/dL Albumin 2.1 L (3.5-5.0) g/dL Crossmatch 12/06/20 12/06/20 12/06/20 Range/Units 11:23 13:16 13:16 WBC (3.8-10.6) k/uL RBC (4.30-5.90) m/uL Hgb (13.0-17.5) gm/dL Hct (39.0-53.0) % RDW (11.5-15.5) % Plt Count (150-450) k/uL Retic Count 4.8 H (0.5-2.0) % Sodium (137-145) mmol/L Carbon Dioxide (22-30) mmol/L BUN (9-20) mg/dL Creatinine (0.66-1.25) mg/dL Glucose (74-99) mg/dL POC Glucose (mg/dL) 189 H (75-99) mg/dL Plasma Lactic Acid Narayan (0.7-2.0) mmol/L Calcium (8.4-10.2) mg/dL Total Protein (6.3-8.2) g/dL Albumin (3.5-5.0) g/dL Crossmatch See Detail Microbiology - Last 24 Hours (Table) 12/03/20 13:07 Blood Culture - Preliminary Blood No Growth after 72 hours 12/05/20 02:27 Blood Culture - Preliminary Blood No Growth after 24 hours 12/04/20 14:45 Urine Culture - Preliminary Urine,Voided Gram Neg Bacilli Assessment and Plan (1) Normocytic normochromic anemia Narrative/Plan: This is a pleasant 75-year-old male patient who was admitted with COVID-19 pneumonia, he had a gradual drop in his hemoglobin throughout the course of his hospitalization with an acute drop a few days ago. His hemoglobin dropped from 10-6, his baseline appears to be between 8 and 9. He has seen also on outpatient basis for anemia of chronic disease. He is now status post 3 units of PRBC transfusion. He has had no evidence of any GI bleed. We likely most dealing with anemia of chronic disease, with no plans for any endoscopic evaluation at this time. Current Visit: Yes Status: Acute Code(s): D64.9 - ANEMIA, UNSPECIFIED SNOMED Code(s): 59578885 (2) COVID-19 Narrative/Plan: He should've presently being treated for COVID-19 pneumonia on IV dexamethasone and broad-spectrum antibiotics. Current Visit: Yes Status: Acute Code(s): U07.1 - COVID-19 SNOMED Code(s): 099047029 (3) Chronic kidney disease Narrative/Plan: Has a history of chronic kidney disease with likely acute kidney injury superimposed with worsening BUN and creatinine. Nephrology following patient closely Current Visit: Yes Status: Acute Code(s): N18.9 - CHRONIC KIDNEY DISEASE, UNSPECIFIED SNOMED Code(s): 599178334 Plan: 1. Continue symptomatic and supportive care 2. Diet as tolerated 3. Repeat daily CBC, transfuse for hemoglobin less than 7 4. No plans for endoscopic evaluation at this time, patient's anemia is normocytic, normochromic and is likely dealing with anemia of chronic disease 5. Appreciate recommendations from hematology Thank you for this consultation, we will continue to follow Dr. Lydia Darling I agree with the dictator's note, documented as a scribe by Yakelin Torres.
--- NOTE | 2020-12-06 15:44 | P.PN ---
Subjective Progress Note Date: 12/06/20 Principal diagnosis: Acute COVID-19 pneumonia Acute COVID-19 pneumonia 75-year-old male patient, started having symptoms approximately a week ago when he started feeling a bit tired and fatigued. He subsequently developed fever and diminished appetite and some diarrhea. The patient tested positive for COVID 19 infection 4 days ago and this was again confirmed on 11/19/2020. The patient came into the emergency with weakness and shortness of breath. The patient is currently on 2 L of oxygen by nasal cannula. He is known to have CAD, previous bypass, aortic, chronic disease, diabetes mellitus and diabetic retinopathy and neuropathy and hypothyroidism and gout. Lactate was 0.7, there d-dimer was 0.6, white cell count was at 3.2 with a lymphopenia, creatinine was at 3.37 with a mean of 61. He is also on multivitamins. Chest x-ray showing diffuse bilateral pulmonary infiltrates. On today's evaluation of 4 [phone],021 the patient is currently on oxygen at 4 L per minute. The patient is quite comfortable. Pulse ox is around 95% and FiO2 can be obviously weaned off. The patient is being seen for a follow-up. The patient is currently being treated with Decadron 6 mg IV every 24 hours. The patient is also on Lovenox 40 mg subcu daily and the patient is also on Remdesivir day #2. No follow-up chest x-rays available from today. The rest of the labs are showing chronic kidney disease with a creatinine of 2.7. The patient has chronic metabolic acidosis which is of a non-anion gap type. On 11/22/2020 patient seen in follow-up. Is comfortable, still desat easily, feels tired, but no acute distress, today's labs have been reviewed, d-dimer 0.69, CRP is 35.6, no LDH. Has not had a chest x-ray, he is currently on 7 L, his pulse ox is 89%, no fever, remains on Remdesivir, today is day 3 of treatment. On 11/23/2020 patient is pretty stable, he remains on 5 L of oxygen, her pulse ox 89-90%, he is breathing comfortably, no worsening dyspnea, his 0.9, saline at 60 per hour, patient completed Remdesivir treatment, he remains on steroids, and prophylactic Lovenox. No worsening dyspnea, today's labs have been reviewed, d- dimer is 1.90, renal profile is slightly improved from yesterday, patient continues on IV fluids, no nausea vomiting or diarrhea, CRP is trending down, LDH with today is pending. On 11/25/2000 patient seen in follow-up on medical surgical floor, he is sitting up in the chair, appears to be breathing comfortably although his oxygen requirements have increased, and is currently on 15 L per high flow nasal cannula up from 12 L from yesterday, he denies any worsening dyspnea, lung sounds reveal diffuse bilateral crackles, no chest discomfort, no signs of any respiratory distress. No cough, no wheezing, today's chest x-ray shows bilateral mid to lower lung increased opacities, findings consistent with COVID- 19 pneumonia, the findings are stable in appearance. Follow-up inflammatory markers showed d-dimer of 19.16, LDH is up to 2028, CRP is 2.4. Patient has completed his Remdesivir course, she remains on daily dose of Decadron 6 mg, and Lovenox 30 mg daily, his renal function appears to be relatively stable, his bun is 64, and creatinine is 2.12 On 11/26/2020 patient seen in follow-up on medical surgical floor, he sitting up in the chair, he is breathing comfortably, he is currently down to 13 L, and his pulse ox is 90-94%, his been afebrile, overall she looks stable, he does not appear to be in any acute distress, he is a d-dimer has trended up, and on today's labs it is up to 30.3, and his Lovenox dose will be adjusted. Today's inflammatory markers are improving. He remains on daily dose IV Decadron 6 mg daily, Lovenox, multivitamins, and his IV fluids are infusing at a rate of 60 ML per hour, no new chest x-ray today, his kidney function shows slight improvement On 11/27/2000 patient seen in follow-up on medical surgical floor, he remains on high flow oxygen 15 L, and the nonrebreather mask, he does desat when he removes his nonrebreather mask down to 86% however he denies any dyspnea, he does not feel stressed at all, and looks very comfortable, he sitting up in the recliner, awake and alert, oriented 3, he is afebrile, hemodynamically has been stable, he has no specific complaints, and his today's chest x-ray shows cardiomegaly and low lung volumes with bilateral mid to lower lung reticular and confluent opacities consistent with COVID-19 pneumonia with no change from previousexam. Today's labs have been reviewed, white blood cell count is 5.45, hemoglobin is 9.3, no d-dimer today, but yesterday's d-dimer was quite elevated at 30.3, and his Lovenox dose was adjusted and increased to 40 mg twice a day, his electrolyte panel shows CO2 of 28.1, but prostate electrolytes are within normal limits, B1 is 84, creatinine is 2.2, his LDH is down to 687, improving, his CRP is 1.2 on today's labs. He continues on Decadron 6 mg daily, he is on Lovenox 40 mg twice a day, and he is receiving IV hydration at 60 ML per hour, nephrology is following On 11/28/2020 patient seen in follow-up on medical surgical floor, he is resting comfortably in bed, he is currently on 15 L high flow and 100% nonrebreather, he looks quite comfortable, he denies any shortness of breath, minimal cough, he is breathing comfortably, his pro-calcitonin level was low, his inflammatory markers were improving, his d-dimer was elevated on 11/26/2020 patient is on 40 mg of Lovenox twice daily, Lasix is at 40 mg every 12 hours patient is in negative fluid balance. No new chest x-ray today On 11/29/2000 patient seen in follow-up on medical surgical floor, is currently on 15 L per high flow nasal cannula, and 100 nonrebreather mask, and he is satting about 93%, he does not feel short of breath, he seems to be breathing very comfortably, he is afebrile, hemodynamically stable, his chest x-ray today shows low lung volumes with bilateral mid to lower lung reticular and confluent opacities consistent with COVID-19 pneumonia. Findings are similar to his previous chest x-ray, lower extremity Dopplers were completed and he was negative for DVT. His d-dimer is trending down, and is down to 16.0. The rest of his lab work has been reviewed, showing white blood cell count of 8.7, hemoglobin of 10.5, sodium is 136, potassium is 4.5, chloride is 98, BUN of 108, and creatinine is 3.2, his calcitonin level was negative at 0.10, his inflammatory markers were improving since admission. No nausea vomiting or diarrhea, and patient continues on daily dose of IV Decadron 6 mg, continues on Lovenox 40 mg twice daily, she was given a dose of Lasix yesterday and he was started on maintenance dose of IV Lasix On 11/30/2020 patient seen in follow-up on medical surgical floor, he is resting comfortably in bed, currently off the nonrebreather mask, on 15 L per high flow nasal cannula with his pulse ox is 90-91%, he looks very comfortable, breathing comfortably, no worsening dyspnea. Cooperative chest discomfort, no cough. No fever or chills. No acute events overnight, patient did receive 1 dose of Toci yesterday 720 mg, he remains on Lovenox 40 mg twice a day, and daily dose Decadron, today's labs have been reviewed, showing white blood cell, 10.1, hemoglobin of 10.3, d-dimer is trending down, down to 11.4, electrolytes are within normal limits, renal profile shows some improvement, pro-Joshua was negative, inflammatory markers are trending down, patient denies any specific complaints On 12/01/2020 patient seen in follow-up on medical surgical floor, is currently on 15 L per high flow nasal cannula and nonrebreather mask, and his pulse ox is 100%, he is breathing very comfortably, denies any cough, denies any chest pain, has had no fever or chills, no nausea vomiting diarrhea, no abdominal pain, no new chest x-rays, his labs have been reviewed, d-dimer today is 12.5, electroly angel are unremarkable, his renal profile slightly improved, his BUN is 113, and creatinine is 2.59. On 12/02/2020 patient seen in follow-up on medical surgical floor, he is currently back on 11 L of oxygen resting comfortably in bed, in comfortably, in his pulse ox was 99%, we dropped the FiO2 down to 8 L, and we instructed the nursing staff to continue weaning it to maintain O2 saturations at or above 90%, patient has no specific complaints, no cough, no chest discomfort, no fever, no chills no headaches, no nausea vomiting or diarrhea. Renal function continues to be impaired, and nephrology is following, his BUN is 1:30, and creatinine is 2.70, electrolytes were unremarkable on today's labs. No new chest x-ray today. Patient remains on IV Decadron 6 mg, and Lovenox is currently at 40 mg twice daily. Follow-up d-dimer is pending for today. On the 12/04/2020 patient seen in follow-up on medical surgical floor, he is currently on 7 L per high flow nasal cannula, his pulse ox is about 86-95%, although she looks very pale, his hemoglobin today is down to 6.0 and patient has not had any obvious bleeding, no hematemesis, no melena, abdomen is soft, no abdominal pain, he is a bit drowsy, he is mildly short of breath but does not appear to be in any acute distress, he was also found to be hypothermic, and appear hugger was applied, he received a unit of packed red blood cells, on in the 2 units are pending for transfusion today, today's labs have been reviewed, his white count is 23.6, his platelet count is down to 93,000, his neutrophil count is 21.5, a remains lymphopenic as well, and lymphocyte count is 0.48, serum sodium is 131, potassium is 5.0, chloride is 106, CO2 is 15, creatinine is 148, and creatinine of 3.36, serum calcium is 5.9, his last LDH from 12/03/2020 was 1654, and CRP was 0.9, CA urinalysis was sent and there is possibility of urinary tract infection with the large amounts of leukocytes esterase, white blood cells and white blood cells in clumps and many bacteria. Patient was started on cefepime, and Zyvox, ID service is following. Patient was increasingly more acidotic and he was given 1 puff sodium bicarbonates IV push, and was started on D5W with 3 A of bicarbonate at a rate of 50 ML per hour. No nausea vomiting or diarrhea. He received a dose of vancomycin yesterday, and vancomycin is being adjusted per pharmacy. Blood cultures are negative thus far On 12/05/2020 patient seen in follow-up on medical surgical floor. He is breat carla comfortably, he is resting in bed, he continues to require a bear hugger his current temp is currently 96.3 degrees utilizing a temporal artery. No obvious bleeding, patient is passing dark stools, however he also takes iron supplements, and the nurse states his stools are not obviously black and tarry, no hematemesis, abdomen is soft, no hematuria. No altered mentation, he is awake and alert, he is answering questions appropriately, he denies any worsening dyspnea, urine and blood cultures have been sent and are pending at this time, and patient is currently covered with cefepime, and Zyvox. Patient received 2 A of sodium bicarbonate this morning. Today's labs show a white blood cell count of 25.1, hemoglobin of 7.5, sodium is 132, potassium is 5.6, CO2 was 14, BUN was 156, creatinine is 3.49, lactic acid was 2.6, pro-calcitonin level is low at 0.28. Urinalysis suggest possibility of urinary tract infection. On 12/06/2020 patient seen in follow-up on medical surgical floor, he is resting quietly in bed, he still on high flow oxygen, currently at 15 L, his pulse ox is 94%, he states he is tired and sleepy, his hemoglobin is down to 6.1 today and again there is no clear evidence of bleeding, abdomen is soft, no hematemesis, no melena, patient is being transfused with 1 unit of packed red blood cells this morning, his white blood cell count was 20.6, his platelet count is 77, his anticoagulation has been on hold for last 48 hours, his BUN is up to 151, creatinine is 3.61. Plasma lactic acid was 3.1, patient is on antibiotics for possibility of sepsis, likely related to urinary tract infection, his urine culture showing gram-negative bacilli, fungal cultures pending, blood cultures have shown no growth. She remains on Decadron, and he is on cefepime and Zyvox. He received some fluid boluses 500 at 9:00 last night, and another 500 mL fluid bolus in the morning, she remains on D5W with 3 units of bicarbonate at a rate of 50 ML per hour. Nephrology is following. GI service has been consulted and CT of the demented pelvis are pending at this time Objective - Vital Signs Vital signs: Vital Signs Temp 97.0 F L 12/06/20 15:24 Pulse 74 12/06/20 15:24 Resp 20 12/06/20 14:00 BP 136/74 12/06/20 15:24 Pulse Ox 95 12/06/20 15:24 Intake & Output 12/05/20 12/06/20 12/06/20 18:59 06:59 18:59 Intake Total 310 Output Total 475 1000 Balance -475 -1000 310 Intake: Blood Product 310 Rc Cpda-1 Unit 310 [id number] Rc Pheresis As-3 Unit 0 [id number] Output: Urine 475 1000 Other: Voiding Method Indwelling Catheter Indwelling Catheter Indwelling Catheter - Exam GENERAL EXAM: 75-year-old white male, pale, currently on 15 L of oxygen pulse ox between 100%, appears very pale, weak, patient has a bear hugger on for low body temperature HEAD: Normocephalic/atraumatic. EYES: Normal reaction of pupils, equal size. Conjunctiva pink, sclera white. NOSE: Clear with pink turbinates. THROAT: No erythema or exudates. NECK: No masses, no JVD, no thyroid enlargement, no adenopathy. CHEST: No chest wall deformity. Symmetrical expansion. LUNGS: Equal air entry with bilateral crackles CVS: Regular rate and rhythm, normal S1 and S2, no gallops, no murmurs, no rubs ABDOMEN: Soft, nontender. No hepatosplenomegaly, normal bowel sounds, no guarding or rigidity. EXTREMITIES: No clubbing, no edema, no cyanosis, 2+ pulses and upper and lower extremities. MUSCULOSKELETAL: Muscle strength and tone normal. SPINE: No scoliosis or deformity SKIN: No rashes CENTRAL NERVOUS SYSTEM: Alert and oriented -3. No focal deficits, tone is normal in all 4 extremities. - Labs CBC & Chem 7: 12/06/20 06:16 12/06/20 06:16 Labs: Abnormal Lab Results - Last 24 Hours (Table) 12/03/20 12/05/20 12/05/20 Range/Units 09:07 16:28 17:14 WBC (3.8-10.6) k/uL RBC (4.30-5.90) m/uL Hgb (13.0-17.5) gm/dL Hct (39.0-53.0) % RDW (11.5-15.5) % Plt Count (150-450) k/uL Retic Count (0.5-2.0) % Sodium (137-145) mmol/L Carbon Dioxide (22-30) mmol/L BUN (9-20) mg/dL Creatinine (0.66-1.25) mg/dL Glucose (74-99) mg/dL POC Glucose (mg/dL) 151 H (75-99) mg/dL Plasma Lactic Acid Narayan 3.0 H* (0.7-2.0) mmol/L Calcium (8.4-10.2) mg/dL Total Protein (6.3-8.2) g/dL Albumin (3.5-5.0) g/dL Crossmatch See Detail 12/05/20 12/05/20 12/06/20 Range/Units 20:15 20:36 06:16 WBC (3.8-10.6) k/uL RBC (4.30-5.90) m/uL Hgb (13.0-17.5) gm/dL Hct (39.0-53.0) % RDW (11.5-15.5) % Plt Count (150-450) k/uL Retic Count (0.5-2.0) % Sodium (137-145) mmol/L Carbon Dioxide (22-30) mmol/L BUN (9-20) mg/dL Creatinine (0.66-1.25) mg/dL Glucose (74-99) mg/dL POC Glucose (mg/dL) 197 H (75-99) mg/dL Plasma Lactic Acid Narayan 3.5 H* 3.1 H* (0.7-2.0) mmol/L Calcium (8.4-10.2) mg/dL Total Protein (6.3-8.2) g/dL Albumin (3.5-5.0) g/dL Crossmatch 12/06/20 12/06/20 12/06/20 Range/Units 06:16 06:16 06:55 WBC 20.6 H (3.8-10.6) k/uL RBC 1.89 L (4.30-5.90) m/uL Hgb 6.1 L* (13.0-17.5) gm/dL Hct 17.4 L* (39.0-53.0) % RDW 18.3 H (11.5-15.5) % Plt Count 77 L (150-450) k/uL Retic Count (0.5-2.0) % Sodium 135 L (137-145) mmol/L Carbon Dioxide 21 L (22-30) mmol/L BUN 151 H* (9-20) mg/dL Creatinine 3.61 H (0.66-1.25) mg/dL Glucose 127 H (74-99) mg/dL POC Glucose (mg/dL) 163 H (75-99) mg/dL Plasma Lactic Acid Narayan (0.7-2.0) mmol/L Calcium 5.8 L* (8.4-10.2) mg/dL Total Protein 4.0 L (6.3-8.2) g/dL Albumin 2.1 L (3.5-5.0) g/dL Crossmatch 12/06/20 12/06/20 12/06/20 Range/Units 11:23 13:16 13:16 WBC (3.8-10.6) k/uL RBC (4.30-5.90) m/uL Hgb (13.0-17.5) gm/dL Hct (39.0-53.0) % RDW (11.5-15.5) % Plt Count (150-450) k/uL Retic Count 4.8 H (0.5-2.0) % Sodium (137-145) mmol/L Carbon Dioxide (22-30) mmol/L BUN (9-20) mg/dL Creatinine (0.66-1.25) mg/dL Glucose (74-99) mg/dL POC Glucose (mg/dL) 189 H (75-99) mg/dL Plasma Lactic Acid Narayan (0.7-2.0) mmol/L Calcium (8.4-10.2) mg/dL Total Protein (6.3-8.2) g/dL Albumin (3.5-5.0) g/dL Crossmatch See Detail Microbiology - Last 24 Hours (Table) 12/03/20 13:07 Blood Culture - Preliminary Blood No Growth after 72 hours 12/05/20 02:27 Blood Culture - Preliminary Blood No Growth after 24 hours 12/04/20 14:45 Urine Culture - Preliminary Urine,Voided Gram Neg Bacilli Assessment and Plan Plan: Assessment: #1. acute COVID 19 related pneumonia with secondary shortness of breath and hypoxic respiratory failure the patient's symptoms of generalized weakness and dehydration, currently on 4 L of oxygen by nasal cannula, patient was started on Remdesivir on 11/20/2020, Toci on 11/29/2020 #2. acute hypoxic respiratory failure #3. Acute blood loss anemia, related to large retroperitoneal hematoma #4. Rule out possibility of sepsis possibly related to urinary tract infection #5. Hypothermia possibly related to sepsis #6. Coronary artery disease with previous positive bypass surgery #7. Mild troponin leak, could be related to Covid 19 infection #8. History of AICD placement #9. Hypothyroidism #10. Diabetes mellitus with diabetic retinopathy #11. 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 Gout #13. Anemia of chronic disease #14. Hypothyroidism #15. Acute kidney injury Plan: Patient is receiving a unit of blood, we will order another unit of blood, repeat hemoglobin CT of the abdomen and pelvis was noted and there is a large retroperitoneal hematoma and surgery has been consulted Continue holing anticoagulation Awaiting further input from surgery Keep nothing by mouth for possibility of surgery Continue current antibiotics, will await results of the final cultures Overall prognosis is guarded I performed a history & physical examination of the patient and discussed their management with my nurse practitioner, Iza Mccarthy. I reviewed the nurse practitioner's note and agree with the documented findings and plan of care. Lung sounds are positive for bibasilar crackles. The findings and the impression was discussed with the patient. I attest to the documentation by the nurse practitioner. Time with Patient: Less than 30
[2020-12-06 16:42] LABS: Glucose,Whole Blood 120 mg/dL (75-99)
[2020-12-06] MEDS: allopurinoL 100 MG TAB PO SCH (16:48)
--- NOTE | 2020-12-06 17:57 | PN ---
PROGRESS NOTE DATE OF SERVICE: 12/06/2020 REASON FOR FOLLOWUP: Pneumonia. INTERVAL HISTORY: The patient is currently afebrile. The patient is hemodynamically stable, not on any pressor support. The patient is currently on 12 L high-flow oxygen. The patient denies having any chest pain or worsening shortness of breath. Complains of feeling weak and tired. No abdominal pain or diarrhea. PHYSICAL EXAMINATION: Blood pressure 136/74, pulse of 74, temperature 97. He is 95% on 12 L high-flow oxygen. General description is an elderly male lying in bed in no distress. RESPIRATORY SYSTEM: Unlabored breathing with decreased intensity of breath sounds. No wheeze. HEART: S1, S2. Regular rate and rhythm. ABDOMEN: Soft. No tenderness. LABS: Hemoglobin 6.1, white count 20.6, BUN of 151, creatinine 3.61. DIAGNOSTIC IMPRESSION AND PLAN: 1. Patient with acute respiratory failure which is multifactorial in this patient who did have COVID-19 pneumonia with concern for possible bacterial pneumonia with recent worsening of his respiratory status. Patient is covered with cefepime and Zyvox; to continue. Try to obtain a sputum sample to narrow down his antibiotics. 2. Patient with drop in hemoglobin. Concern was for a possible retroperitoneal hematoma which was on a CT of abdomen and pelvis that was obtained and confirmed hematoma. Primary has been informed. Continue with supportive care. MMODL / IJN: [id number] /
--- NOTE | 2020-12-06 19:28 | P.GSCN ---
History of Present Illness Consult date: 12/06/20 History of present illness: CHIEF COMPLAINT: Hematoma HISTORY OF PRESENT ILLNESS: The patient is a 75 year old male admitted for fatigue and weakness over 2 weeks. He presented COVID positive including acute renal failure. He was started on treatment for COVID. He is being followed by infectious disease. Patient had blood in stools including acute blood loss anemia with hemoglobin drop from 10.5 to 6.8 mg/dL. He had been transfused blood. He had been on blood thinners recently. Gastroenterology team is following. CT of the abdomen and pelvis demonstrated new hematoma. He denies any abdominal pain. No reports of back pain. General surgery is consulted for man agement of retroperitoneal hematoma. PAST MEDICAL HISTORY: See list and reviewed PAST SURGICAL HISTORY: See list and reviewed MEDICATIONS: See list and reviewed ALLERGIES: See list and reviewed SOCIAL HISTORY: See list and reviewed FAMILY HISTORY: See list and reviewed REVIEW OF ORGAN SYSTEMS: CONSTITUTIONAL: No fevers or chills. No recent weight loss. EYES: Denies any trouble with vision. No glasses. Has cataracts. Has diabetic neuropathy. HEENT: No difficulties with hearing. No nosebleeds. No difficulty swallowing. RESPIRATORY: Denies pneumonia. Denies any troubles with breathing or dyspnea on exertion. CARDIOVASCULAR: Has hypertensive heart disease. Has hyperlipidemia. Has [facility] AICD. Has CABG x 4. GASTROINTESTINAL: Denies fatty food intolerance. Denies change in bowel habits and gas bloat. Has iron deficiency. GENITOURINARY: Denies any blood in urine or increased urinary frequency. Has stage 4 kidney disease. NEUROLOGICAL: Has neuropathy bilateral lower extremity. No seizure disorders or headaches. MUSCULOSKELETAL: Has back pain, stiffness or joint arthritis. Has gout. SKIN: No current skin cancer. No rash. PSYCHIATRIC: Denies current depression or suicidal thoughts. ENDOCRINE: Has hypothyroidism. Has diabetes type 2. HEME/LYMPHATIC: Denies any lumps and bumps around the neck. No recent deep venous thrombosis. ALLERGY/IMMUNOLOGY: No immunoglobulin therapy. No immune deficiencies. BREAST: Denies current breast lumps, pain or nipple discharge. PHYSICAL EXAM: VITALS: Reviewed CONSTITUTIONAL: Well developed and in no acute distress. EYES: Conjuctivae without sclera icterus. Extraocular movements grossly intact. HEAD, EARS, NOSE, THROAT: Moist buccal mucosa. Head is atraumatic, normocephalic. Hears conversational speech. No nasal drainage. NECK: Supple. No JV distention. No thyroidomegaly. RESPIRATORY: Non-labored respirations and equal bilateral excursions. No gross wheezes. CARDIOVASCULAR: Palpable 2+ radial pulses. ABDOMEN: No peritonitis. LYMPH: No neck lymphadenopathy. MUSCULOSKELETAL: Nail and fingers with good capillary refill. SKIN: Warm and well perfused with good skin turgor. NEUROLOGIC: Cranial nerves II through XII grossly intact. Sensation upper and extremities intact. No focal or lateralizing signs. PSYCH: Appropriate affect. Alert and oriented to person, place and time. Displays appropriate insight. CLINCAL LABS: Reviewed. WBC elevated 20.6, Hemoglobin down 8.4 to 6.1. Platelets down 95 to 77. Creatinine is elevated 3.61 and BUN elevated over 150 with uremia. IMAGING: Independently reviewed CT of the abdomen and pelvis with subcutaneous left abdominal wall hematoma including retroperitoneal pelvic hematoma. This is my independent interpretation. RADIOLOGY: Report reviewed of CT of the abdomen with gallstones, and ground glass opacifications of the bilateral lungs. Left pelvic hematoma over 7 cm with acute pancreatits. ASSESSMENT: 1. Retroperitoneal hematoma 2. COVID-19 pneumonia 3. Acute pancreatitis 4. Acute renal failure 5. Uremia PLAN: 1. Recommend discontinuing all anticoagulants. 2. Additionally, recommend desmopressin for renal impairment and platelet dysfunction. 3. Also recommend Procrit or equivalent to augment bone marrow. 4. Conservative management advised for retroperitoneal hematoma. 5. Recommend controlling medical factors including uremia and supplement bone marrow. Past Medical History Past Medical History: Coronary Artery Disease (CAD), Diabetes Mellitus, Eye Disorder, Renal Disease, Thyroid Disorder Additional Past Medical History / Comment(s): SEE DR KENNY H&P, ANEMIA, HX GOUT, NEUROPATHY ALEX HANDS AND FEET, DIABETIC RETINOPATHY, GET INJECTIONS IN EYES, stage 4 KIDNEY DISEASE per spouse History of Any Multi-Drug Resistant Organisms: None Reported Past Surgical History: AICD, Coronary Bypass/CABG Additional Past Surgical History / Comment(s): ALEX CATARACTS, CABG X4 Past Anesthesia/Blood Transfusion Reactions: No Reported Reaction Type of Cardiac Device: AICD Device Placement Date:: 11/20/17 [facility] Past Psychological History: No Psychological Hx Reported Smoking Status: Never smoker Past Alcohol Use History: None Reported Past Drug Use History: None Reported - Past Family History Father Family Medical History: Cancer Brother(s) Family Medical History: Cancer Medications and Allergies Home Medications Medication Instructions Recorded Confirmed Type Aspirin EC [Ecotrin Low Dose] 81 mg PO BID 11/29/16 11/19/20 History Carvedilol [Coreg] 18.75 mg PO BID@1200,1800 11/29/16 11/19/20 History Ferrous Sulfate [Iron (65 MG 325 mg PO BID@1200,1800 11/29/16 11/19/20 History Elemental)] Levothyroxine Sodium [Synthroid] 100 mcg PO AC-BRKFST 11/29/16 11/19/20 History allopurinoL [Zyloprim] 100 mg PO W/SUPPER 11/29/16 11/19/20 History calcitrioL [Rocaltrol] 0.25 mcg PO WE 11/29/16 11/19/20 History Repaglinide [Prandin] 0.25 mg PO AC-BID 06/09/18 11/19/20 History Spironolactone 12.5 mg PO DAILY@1200 06/09/18 11/19/20 History Atorvastatin Calcium [Lipitor] 40 mg PO HS 11/19/20 11/19/20 History Epoetin Rizwan-Epbx [Retacrit] 4,000 units SQ Q21D 11/19/20 11/19/20 History Ergocalciferol (Vitamin D2) 1,250 mcg PO QMONTHLY 11/19/20 11/19/20 History [Vitamin D2 (50,000 Iu)] Allergies Allergy/AdvReac Type Severity Reaction Status Date / Time No Known Allergies Allergy Verified 11/19/20 08:10 Surgical - Exam Vital Signs Temp Pulse Resp BP Pulse Ox 99.2 F 60 18 145/66 98 11/18/20 22:05 11/18/20 22:05 11/18/20 22:05 11/18/20 22:05 11/18/20 22:05 Results - Labs 12/16/20 06:59 12/18/20 07:14 Abnormal Lab Results - Last 24 Hours (Table) 12/03/20 12/05/20 12/05/20 Range/Units 09:07 20:15 20:36 WBC (3.8-10.6) k/uL RBC (4.30-5.90) m/uL Hgb (13.0-17.5) gm/dL Hct (39.0-53.0) % RDW (11.5-15.5) % Plt Count (150-450) k/uL Retic Count (0.5-2.0) % Sodium (137-145) mmol/L Carbon Dioxide (22-30) mmol/L BUN (9-20) mg/dL Creatinine (0.66-1.25) mg/dL Glucose (74-99) mg/dL POC Glucose (mg/dL) 197 H (75-99) mg/dL Plasma Lactic Acid Narayan 3.5 H* (0.7-2.0) mmol/L Calcium (8.4-10.2) mg/dL Total Protein (6.3-8.2) g/dL Albumin (3.5-5.0) g/dL Crossmatch See Detail 12/06/20 12/06/20 12/06/20 Range/Units 06:16 06:16 06:16 WBC 20.6 H (3.8-10.6) k/uL RBC 1.89 L (4.30-5.90) m/uL Hgb 6.1 L* (13.0-17.5) gm/dL Hct 17.4 L* (39.0-53.0) % RDW 18.3 H (11.5-15.5) % Plt Count 77 L (150-450) k/uL Retic Count (0.5-2.0) % Sodium 135 L (137-145) mmol/L Carbon Dioxide 21 L (22-30) mmol/L BUN 151 H* (9-20) mg/dL Creatinine 3.61 H (0.66-1.25) mg/dL Glucose 127 H (74-99) mg/dL POC Glucose (mg/dL) (75-99) mg/dL Plasma Lactic Acid Narayan 3.1 H* (0.7-2.0) mmol/L Calcium 5.8 L* (8.4-10.2) mg/dL Total Protein 4.0 L (6.3-8.2) g/dL Albumin 2.1 L (3.5-5.0) g/dL Crossmatch 12/06/20 12/06/20 12/06/20 Range/Units 06:55 11:23 13:16 WBC (3.8-10.6) k/uL RBC (4.30-5.90) m/uL Hgb (13.0-17.5) gm/dL Hct (39.0-53.0) % RDW (11.5-15.5) % Plt Count (150-450) k/uL Retic Count 4.8 H (0.5-2.0) % Sodium (137-145) mmol/L Carbon Dioxide (22-30) mmol/L BUN (9-20) mg/dL Creatinine (0.66-1.25) mg/dL Glucose (74-99) mg/dL POC Glucose (mg/dL) 163 H 189 H (75-99) mg/dL Plasma Lactic Acid Narayan (0.7-2.0) mmol/L Calcium (8.4-10.2) mg/dL Total Protein (6.3-8.2) g/dL Albumin (3.5-5.0) g/dL Crossmatch 12/06/20 12/06/20 Range/Units 13:16 16:38 WBC (3.8-10.6) k/uL RBC (4.30-5.90) m/uL Hgb (13.0-17.5) gm/dL Hct (39.0-53.0) % RDW (11.5-15.5) % Plt Count (150-450) k/uL Retic Count (0.5-2.0) % Sodium (137-145) mmol/L Carbon Dioxide (22-30) mmol/L BUN (9-20) mg/dL Creatinine (0.66-1.25) mg/dL Glucose (74-99) mg/dL POC Glucose (mg/dL) 120 H (75-99) mg/dL Plasma Lactic Acid Narayan (0.7-2.0) mmol/L Calcium (8.4-10.2) mg/dL Total Protein (6.3-8.2) g/dL Albumin (3.5-5.0) g/dL Crossmatch See Detail Microbiology - Last 24 Hours (Table) 12/03/20 13:07 Blood Culture - Preliminary Blood No Growth after 72 hours 12/05/20 02:27 Blood Culture - Preliminary Blood No Growth after 24 hours 12/04/20 14:45 Urine Culture - Preliminary Urine,Voided Gram Neg Bacilli Diabetes panel 12/06/20 Range/Units 06:16 Sodium 135 L (137-145) mmol/L Potassium 5.0 (3.5-5.1) mmol/L Chloride 104 (98-107) mmol/L Carbon Dioxide 21 L (22-30) mmol/L BUN 151 H* (9-20) mg/dL Creatinine 3.61 H (0.66-1.25) mg/dL Glucose 127 H (74-99) mg/dL Calcium 5.8 L* (8.4-10.2) mg/dL AST 52 (17-59) U/L ALT 36 (4-49) U/L Alkaline Phosphatase 63 (38-126) U/L Total Protein 4.0 L (6.3-8.2) g/dL Albumin 2.1 L (3.5-5.0) g/dL Calcium panel 12/06/20 Range/Units 06:16 Calcium 5.8 L* (8.4-10.2) mg/dL Albumin 2.1 L (3.5-5.0) g/dL Pituitary panel 12/06/20 Range/Units 06:16 Sodium 135 L (137-145) mmol/L Potassium 5.0 (3.5-5.1) mmol/L Chloride 104 (98-107) mmol/L Carbon Dioxide 21 L (22-30) mmol/L BUN 151 H* (9-20) mg/dL Creatinine 3.61 H (0.66-1.25) mg/dL Glucose 127 H (74-99) mg/dL Calcium 5.8 L* (8.4-10.2) mg/dL Adrenal panel 12/06/20 Range/Units 06:16 Sodium 135 L (137-145) mmol/L Potassium 5.0 (3.5-5.1) mmol/L Chloride 104 (98-107) mmol/L Carbon Dioxide 21 L (22-30) mmol/L BUN 151 H* (9-20) mg/dL Creatinine 3.61 H (0.66-1.25) mg/dL Glucose 127 H (74-99) mg/dL Calcium 5.8 L* (8.4-10.2) mg/dL Total Bilirubin 0.5 (0.2-1.3) mg/dL AST 52 (17-59) U/L ALT 36 (4-49) U/L Alkaline Phosphatase 63 (38-126) U/L Total Protein 4.0 L (6.3-8.2) g/dL Albumin 2.1 L (3.5-5.0) g/dL Assessment and Plan (1) Acute on chronic renal failure Status: Acute Priority: High Code(s): N17.9 - ACUTE KIDNEY FAILURE, UNSPECIFIED; N18.9 - CHRONIC KIDNEY DISEASE, UNSPECIFIED SNOMED Code(s): 353600532 (2) COVID-19 Status: Acute Code(s): U07.1 - COVID-19 SNOMED Code(s): 508165043 (3) Chronic kidney disease Status: Acute Code(s): N18.9 - CHRONIC KIDNEY DISEASE, UNSPECIFIED SNOMED Code(s): 919904667 (4) Retroperitoneal hematoma Status: Acute Priority: High Code(s): K66.1 - HEMOPERITONEUM SNOMED Code(s): 823745321 (5) Thrombocytopenia Status: Acute Priority: High Code(s): D69.6 - THROMBOCYTOPENIA, UNSPECIFIED SNOMED Code(s): 834975188
--- NOTE | 2020-12-06 19:37 | P.CONS ---
History of Present Illness - Reason for Consult Consult date: 12/06/20 Anemia Requesting physician: Lashawn Garces - Chief Complaint COVID - History of Present Illness Mr Pena is a 75-year-old male patient, who has been admitted for a prolonged hospitalization due to COVID and complications of COVID. He still on high flow oxygen, currently at 15 L, hemoglobin is 6.1, transfusion ordered and we have been asked to evaluate as there is no obvious s/s bleeding. Platelets on 11/24 = 257, today 77K this has been slowly decreasing, has not wax and wained. His hemoglobin did decrease in 6-7 starting around same time. He was on prophylaxic Lovenox until 12/03. He has a known history chronic kidney disease and is on aransp. He has had a steady decrease in platelets and hemoglobin over [address] abdomen has been ordered awaiting results Review of Systems ROS unobtainable: due to mental status Past Medical History Past Medical History: Coronary Artery Disease (CAD), Diabetes Mellitus, Eye Disorder, Renal Disease, Thyroid Disorder Additional Past Medical History / Comment(s): SEE DR KENNY H&P, ANEMIA, HX GOUT, NEUROPATHY ALEX HANDS AND FEET, DIABETIC RETINOPATHY, GET INJECTIONS IN EYES, stage 4 KIDNEY DISEASE per spouse History of Any Multi-Drug Resistant Organisms: None Reported Past Surgical History: AICD, Coronary Bypass/CABG Additional Past Surgical History / Comment(s): ALEX CATARACTS, CABG X4 Past Anesthesia/Blood Transfusion Reactions: No Reported Reaction Type of Cardiac Device: AICD Device Placement Date:: 11/20/17 [facility] Past Psychological History: No Psychological Hx Reported Smoking Status: Never smoker Past Alcohol Use History: None Reported Past Drug Use History: None Reported - Past Family History Father Family Medical History: Cancer Brother(s) Family Medical History: Cancer Medications and Allergies Home Medications Medication Instructions Recorded Confirmed Type Aspirin EC [Ecotrin Low Dose] 81 mg PO BID 11/29/16 11/19/20 History Carvedilol [Coreg] 18.75 mg PO BID@1200,1800 11/29/16 11/19/20 History Ferrous Sulfate [Iron (65 MG 325 mg PO BID@1200,1800 11/29/16 11/19/20 History Elemental)] Levothyroxine Sodium [Synthroid] 100 mcg PO AC-BRKFST 11/29/16 11/19/20 History allopurinoL [Zyloprim] 100 mg PO W/SUPPER 11/29/16 11/19/20 History calcitrioL [Rocaltrol] 0.25 mcg PO WE 11/29/16 11/19/20 History Repaglinide [Prandin] 0.25 mg PO AC-BID 06/09/18 11/19/20 History Spironolactone 12.5 mg PO DAILY@1200 06/09/18 11/19/20 History Atorvastatin Calcium [Lipitor] 40 mg PO HS 11/19/20 11/19/20 History Epoetin Rizwan-Epbx [Retacrit] 4,000 units SQ Q21D 11/19/20 11/19/20 History Ergocalciferol (Vitamin D2) 1,250 mcg PO QMONTHLY 11/19/20 11/19/20 History [Vitamin D2 (50,000 Iu)] Allergies Allergy/AdvReac Type Severity Reaction Status Date / Time No Known Allergies Allergy Verified 11/19/20 08:10 Physical Exam Vitals: Vital Signs Temp Pulse Pulse Resp BP BP Pulse Ox 12/06/20 16:53 97.5 F L 72 155/78 94 L 12/06/20 15:24 97.0 F L 74 136/74 95 12/06/20 14:54 97.3 F L 77 130/72 95 12/06/20 14:44 96.6 F L 76 132/72 93 L 12/06/20 14:00 97.7 F 78 20 134/55 93 L 12/06/20 13:03 97.6 F 79 150/74 91 L 12/06/20 11:25 99.3 F 117/65 93 L 12/06/20 10:55 99.2 F 77 126/66 93 L 12/06/20 10:45 99.4 F 79 127/65 12/06/20 09:54 98.2 F 79 20 127/82 92 L 12/06/20 09:10 90 L 12/06/20 08:18 93 L 12/06/20 08:00 20 12/06/20 05:04 97.9 F 74 20 103/54 93 L 12/06/20 02:01 96.2 F L 70 105/59 92 L 12/05/20 21:34 95.2 F L 67 17 122/56 96 12/05/20 19:20 16 Intake and Output 12/06/20 12/06/20 12/06/20 06:59 14:59 22:59 Intake Total 310 310 Output Total 1000 800 Balance -1000 310 -490 Intake: Blood Product 310 310 Rc Cpda-1 Unit 310 [id number] Rc Pheresis As-3 Unit 0 310 [id number] Output: Urine 1000 800 Other: Voiding Method Indwelling Catheter HIgh FLow Increased effort - Constitutional General appearance: cooperative, no acute distress - EENT Eyes: EOMI ENT: NA/AT - Neck Neck: normal ROM - Respiratory Respiratory: bilateral: diminished - Cardiovascular Rhythm: regular - Gastrointestinal General gastrointestinal: soft - Integumentary Integumentary: normal - Musculoskeletal Musculoskeletal: generalized weakness Results CBC & Chem 7: 12/06/20 06:16 12/06/20 06:16 Labs: Abnormal Lab Results - Last 24 Hours (Table) 12/03/20 12/05/20 12/05/20 Range/Units 09:07 20:15 20:36 WBC (3.8-10.6) k/uL RBC (4.30-5.90) m/uL Hgb (13.0-17.5) gm/dL Hct (39.0-53.0) % RDW (11.5-15.5) % Plt Count (150-450) k/uL Retic Count (0.5-2.0) % Sodium (137-145) mmol/L Carbon Dioxide (22-30) mmol/L BUN (9-20) mg/dL Creatinine (0.66-1.25) mg/dL Glucose (74-99) mg/dL POC Glucose (mg/dL) 197 H (75-99) mg/dL Plasma Lactic Acid Narayan 3.5 H* (0.7-2.0) mmol/L Calcium (8.4-10.2) mg/dL Total Protein (6.3-8.2) g/dL Albumin (3.5-5.0) g/dL Crossmatch See Detail 12/06/20 12/06/20 12/06/20 Range/Units 06:16 06:16 06:16 WBC 20.6 H (3.8-10.6) k/uL RBC 1.89 L (4.30-5.90) m/uL Hgb 6.1 L* (13.0-17.5) gm/dL Hct 17.4 L* (39.0-53.0) % RDW 18.3 H (11.5-15.5) % Plt Count 77 L (150-450) k/uL Retic Count (0.5-2.0) % Sodium 135 L (137-145) mmol/L Carbon Dioxide 21 L (22-30) mmol/L BUN 151 H* (9-20) mg/dL Creatinine 3.61 H (0.66-1.25) mg/dL Glucose 127 H (74-99) mg/dL POC Glucose (mg/dL) (75-99) mg/dL Plasma Lactic Acid Narayan 3.1 H* (0.7-2.0) mmol/L Calcium 5.8 L* (8.4-10.2) mg/dL Total Protein 4.0 L (6.3-8.2) g/dL Albumin 2.1 L (3.5-5.0) g/dL Crossmatch 12/06/20 12/06/20 12/06/20 Range/Units 06:55 11:23 13:16 WBC (3.8-10.6) k/uL RBC (4.30-5.90) m/uL Hgb (13.0-17.5) gm/dL Hct (39.0-53.0) % RDW (11.5-15.5) % Plt Count (150-450) k/uL Retic Count 4.8 H (0.5-2.0) % Sodium (137-145) mmol/L Carbon Dioxide (22-30) mmol/L BUN (9-20) mg/dL Creatinine (0.66-1.25) mg/dL Glucose (74-99) mg/dL POC Glucose (mg/dL) 163 H 189 H (75-99) mg/dL Plasma Lactic Acid Narayan (0.7-2.0) mmol/L Calcium (8.4-10.2) mg/dL Total Protein (6.3-8.2) g/dL Albumin (3.5-5.0) g/dL Crossmatch 12/06/20 12/06/20 Range/Units 13:16 16:38 WBC (3.8-10.6) k/uL RBC (4.30-5.90) m/uL Hgb (13.0-17.5) gm/dL Hct (39.0-53.0) % RDW (11.5-15.5) % Plt Count (150-450) k/uL Retic Count (0.5-2.0) % Sodium (137-145) mmol/L Carbon Dioxide (22-30) mmol/L BUN (9-20) mg/dL Creatinine (0.66-1.25) mg/dL Glucose (74-99) mg/dL POC Glucose (mg/dL) 120 H (75-99) mg/dL Plasma Lactic Acid Narayan (0.7-2.0) mmol/L Calcium (8.4-10.2) mg/dL Total Protein (6.3-8.2) g/dL Albumin (3.5-5.0) g/dL Crossmatch See Detail Microbiology - Last 24 Hours (Table) 12/03/20 13:07 Blood Culture - Preliminary Blood No Growth after 72 hours 12/05/20 02:27 Blood Culture - Preliminary Blood No Growth after 24 hours 12/04/20 14:45 Urine Culture - Preliminary Urine,Voided Gram Neg Bacilli Assessment and Plan (1) Thrombocytopenia Current Visit: Yes Status: Acute Code(s): D69.6 - THROMBOCYTOPENIA, UNSPECIFIED SNOMED Code(s): 331602242 (2) Acute on chronic renal failure Current Visit: Yes Status: Acute Code(s): N17.9 - ACUTE KIDNEY FAILURE, UNSPECIFIED; N18.9 - CHRONIC KIDNEY DISEASE, UNSPECIFIED SNOMED Code(s): 586714782 (3) COVID-19 Current Visit: Yes Status: Acute Code(s): U07.1 - COVID-19 SNOMED Code(s): 320826409 (4) Normocytic normochromic anemia Current Visit: Yes Status: Acute Code(s): D64.9 - ANEMIA, UNSPECIFIED SNOMED Code(s): 73678151 Plan: Assessment and Recommendations: Bicytopenia: - Likely Multifactorial: Secondary to bone marrow supression with prolonged illness, assess for DIC, Assess for Bleeding (CT ordered), HIT antibodies in process - Transfuse PRBC hemoglon less than 7 - PLatelets less 15, or less than 50K id s/s bleeding - AC should be ok to resume if no active bleeding is found and hemoglobin starts to stabilize Physician attest: I have completed the full history and physical and agree with above dictation, dictated as a scribe.
[2020-12-06 20:26] LABS: Glucose,Whole Blood 88 mg/dL (75-99)
[2020-12-06] MEDS: ATORVASTATIN 40 MG TAB PO SCH (20:43)
[2020-12-06] MEDS: TAMSULOSIN 0.4 MG CAP.ER.24H PO SCH (20:43)
[2020-12-06] MEDS: ACETAMINOPHEN TAB 325 MG TAB PO PRN (20:49)
[2020-12-06] MEDS: ALPRAZolam 0.25 MG TAB PO PRN (20:49)
--- NOTE | 2020-12-06 22:45 | P.PN ---
Progress Note - Text Progress Note Date: 12/06/20 Chief Complaint: Tired History of presenting complaint: Pleasant 75-year-old patient of Dr. Horta. Chronic stable medical conditions include diabetes, hypothyroid, gout, peripheral neuropathy, diabetic retinopathy, chronic kidney disease, coronary artery disease with a history of bypass and AICD. Patient's is by the bedside who provides most of the history. Patient about 7 days ago on Friday every couple of days before that has started feeling a little bit tired. Motor worse on Friday. Also developed a fever. Decreased appetite diet. Had some diarrhea. Body aches. No loss of smell or taste. Patient did have COVID rapid tested on that was negative. Now becomes short of breath with minimal exertion tired rundown. Patient is tested positive for COVID 19. Initial pulse ox on room air was 98% and then did go down to 94% on 2 L. Admitted with acute bilateral COVID 19 pneumonitis, acute hypoxic respiratory failure, acute myocarditis. Placed on dexamethasone Lovenox. IV Remdesivir. Patient is requiring high flow oxygen. Patient dropped his hemoglobin on the . Receive 2 units of blood. Today: Remains on 15 L high flow nasal cannula. Tired. Laying down. Decreased oral intake. Hemoglobin has been running low. 2 units of blood ordered today. Computed tomography scan of the abdomen ordered for this afternoon showed a retroperitoneal bleed. Surgery consulted. Anticoagulation has been on hold Review of systems: Was done for constitutional, cardiovascular, GI, pulmonary. relevant finding as above Active Medications Acetaminophen (Acetaminophen Tab 325 Mg Tab) 650 mg PO Q6HR PRN PRN Reason: Fever and/ or Pain Last Admin: 12/06/20 20:49 Dose: 650 mg Documented by: Allopurinol (Allopurinol 100 Mg Tab) 100 mg PO W/SUPPER [facility] Last Admin: 12/06/20 16:48 Dose: 100 mg Documented by: Alprazolam (Alprazolam 0.25 Mg Tab) 0.25 mg PO Q8HR PRN PRN Reason: Anxiety Last Admin: 12/06/20 20:49 Dose: 0.25 mg Documented by: Ascorbic Acid (Ascorbic Acid 500 Mg Tab) 500 mg PO BID [facility] Last Admin: 12/06/20 20:43 Dose: 500 mg Documented by: Atorvastatin Calcium (Atorvastatin 40 Mg Tab) 40 mg PO HS [facility] Last Admin: 12/06/20 20:43 Dose: 40 mg Documented by: Carvedilol (Carvedilol 6.25 Mg Tab) 6.25 mg PO BID-W/MEALS [facility] Last Admin: 12/06/20 16:48 Dose: 6.25 mg Documented by: Cholecalciferol (Cholecalciferol 25 Mcg (1000 Iu) Tablet) 100 mcg PO DAILY [facility] Last Admin: 12/06/20 08:03 Dose: 100 mcg Documented by: Darbepoetin Rizwan (Darbepoetin Rizwan 40 Mcg/0.4 Ml Syringe) 40 mcg SQ Q7D [facility] Last Admin: 12/05/20 11:29 Dose: 40 mcg Documented by: Dexamethasone Sodium Phosphate (Dexamethasone Sod Phosphate 10 Mg/Ml 1 Ml Vial) 6 mg IV DAILY [facility] Last Admin: 12/06/20 08:06 Dose: 6 mg Documented by: Famotidine (Famotidine 20 Mg Tab) 20 mg PO DAILY [facility] Last Admin: 12/06/20 08:04 Dose: 20 mg Documented by: Ferrous Sulfate (Ferrous Sulfate 325 Mg Tab) 325 mg PO BID@1200,1800 [facility] Last Admin: 12/06/20 16:49 Dose: 325 mg Documented by: Cefepime HCl 1 gm/ Sodium (Chloride) 50 mls @ 12.5 mls/hr IVPB Q12HR [facility] Last Admin: 12/06/20 20:42 Dose: 12.5 mls/hr Documented by: Linezolid 600 mg/ IV Solution 300 mls @ 150 mls/hr IVPB Q12HR [facility]; Protocol Stop: 12/07/20 10:59 Last Admin: 12/06/20 20:43 Dose: 150 mls/hr Documented by: Sodium Bicarbonate 150 ml/ (Dextrose/Water) 1,150 mls @ 50 mls/hr IV .Q23H [facility] Last Admin: 12/06/20 11:54 Dose: 50 mls/hr Documented by: Insulin Aspart (Insulin Aspart (Novolog) 100 Unit/Ml Vial) 0 unit SQ ACHS [facility]; Protocol Last Admin: 12/06/20 20:28 Dose: Not Given Documented by: Insulin Detemir (Insulin Detemir (Levemir) 100 Unit/Ml Syr) 35 unit SQ DAILY@0700 [facility] Last Admin: 12/06/20 08:03 Dose: 35 unit Documented by: Insulin Detemir (Insulin Detemir (Levemir) 100 Unit/Ml Syr) 35 unit SQ [facility] Last Admin: 12/06/20 20:28 Dose: Not Given Documented by: Levothyroxine Sodium (Levothyroxine 100 Mcg Tab) 100 mcg PO 0630 [facility] Last Admin: 12/06/20 05:04 Dose: 100 mcg Documented by: Linezolid (Linezolid 600 Mg Tab) 600 mg PO Q12HR [facility] Naloxone HCl (Naloxone 0.4 Mg/Ml 1 Ml Vial) 0.2 mg IV Q2M PRN PRN Reason: Opioid Reversal Pantoprazole Sodium (Pantoprazole 40 Mg/10 Ml Vial) 40 mg IVP BID [facility] Last Admin: 12/06/20 20:43 Dose: 40 mg Documented by: Repaglinide (Repaglinide 1 Mg Tab) 0.25 mg PO AC-BID [facility] Last Admin: 12/06/20 16:49 Dose: 0.25 mg Documented by: Tamsulosin HCl (Tamsulosin 0.4 Mg Cap.Er.24h) 0.4 mg PO [facility] Last Admin: 12/06/20 20:43 Dose: 0.4 mg Documented by: Zinc Sulfate (Zinc Sulfate 220 Mg Cap) 220 mg PO DAILY [facility] Last Admin: 12/06/20 08:04 Dose: 220 mg Documented by: Past medical history to include: Diabetes, hypothyroid, gout, diabetic peripheral neuropathy, diabetic retinopathy, chronic kidney disease stage IV, coronary artery disease with bypass, AICD Social history: No history of smoking or alcohol. . 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 PSYCH: [Alert and oriented x3; mood and affect tired NEUROLOGICAL: Cranial nerves grossly intact; no facial asymmetry, moving all 4 limbs Rest of exam per pulmonary and nursing INVESTIGATIONS, reviewed in the clinical context: Computed tomography scan of abdomen and pelvis: Fairly moderate to large size pelvic retroperitoneal hematoma with local mass effect. Mild cortical thinning in both the kidneys. November 28: WBC 20.6 hemoglobin 6.1 platelets 77 potassium 5 BUN 151 creatinine 3.61 lactic acid 3.1 calcium 5.8 November 27: WBC 5.4 hemoglobin 9.3 potassium 4.8 creatinine 2.2 LDH 687 CRP 1.2 November 21: Potassium 4.8 creatinine 2.7 2-D echocardiogram: EF 50-55% November 20 Potassium 5.1 creatinine 2.85 d-dimer 0.47 CRP 70 WBC 3.2 hemoglobin 9.7 platelets 164 lymphocytes 0.5 sodium 131 potassium 4.8 bun 61 creatinine 3.37 Troponin I 0.073, 0.073, 0.068 albumin 3.2 Urine protein 2+ moderate blood Coronavirus [PCR] detected EKG tracing personally reviewed by me-normal sinus rhythm Chest x-ray film personally reviewed by me-bilateral infiltrates Renal ultrasound-normal Assessment and plan: -Acute bilateral COVID 19 pneumonia. Symptoms started about a week before presentation.-Slow to respond on IV dexamethasone, subcu Lovenox-held, vitamin C vitamin D Pepcid and zinc. November 20 - Remdesivir -Acute hypoxic respiratory failure, secondary to COVID 19 pneumonia: -Not improving Oxygen - 13 L -Acute myocarditis secondary to COVID 19 Telemetry. watch for arrhythmias. -Acute kidney injury likely ATN from sepsis from COVID 19, hypertension. Improved with IV fluids. -Chronic kidney disease stage IV secondary to diabetic kidney disease. Creatinine 2.17 August 2020 Follow renal function -AICD On telemetry -Coronary artery disease with prior history of carotid bypass Continue with Coreg, Lipitor, aspirin -Hypothyroid Continue with Synthroid -Diabetes mellitus type 2, on oral hypoglycemic, uncontrolled with hyperglycemia Follow Accu-Cheks with sliding scale insulin. Increase Levemir to 28 units at night -Chronic gout Continue with allopurinol -Anemia of chronic kidney disease Follow H&H and continue with erythropoietin -Diabetic retinopathy Follow clinically -Diabetic peripheral neuropathy Follow clinically -Hyponatremia from a relative decrease in solute from decreased appetite- improving Saline IV -Metabolic acidosis due to chronic kidney disease Supplement bicarb -Acute retroperitoneal bleed likely from patient being on Lovenox Lovenox has been on hold. General surgery consulted -Acute severe blood loss anemia from retroperitoneal bleed Patient was received a total of 4 units of blood by today General surgery consulted. Follow H&H. Follow hemodynamically. Patient received DDAVP per nephrology. Prognosis guarded
[2020-12-07 02:22] LABS: Folate, Serum 4.2 ng/mL
[2020-12-07 02:51] LABS: % Iron Saturation 51.02 (15.00-50.00); Ferritin 1622.8 ng/mL (22.0-322.0)
[2020-12-07] MEDS: LEVOTHYROXINE 100 MCG TAB PO SCH (05:22)
[2020-12-07 06:59] LABS: Glucose,Whole Blood 114 mg/dL (75-99)
[2020-12-07] MEDS: INSULIN ASPART (NovoLOG) 100 UNIT/ML VIAL SQ SCH ×4 (07:15→20:43)
[2020-12-07] MEDS: CHOLECALCIFEROL 25 MCG (1000 IU) TABLET PO SCH (07:25)
[2020-12-07] MEDS: ASCORBIC ACID 500 MG TAB PO SCH ×2 (07:26→20:42)
[2020-12-07] MEDS: ZINC SULFATE 220 MG CAP PO SCH (07:26)
[2020-12-07] MEDS: FAMOTIDINE 20 MG TAB PO SCH (07:26)
[2020-12-07] MEDS: carvediloL 6.25 MG TAB PO SCH ×2 (07:27→17:12)
[2020-12-07] MEDS: REPAGLINIDE 1 MG TAB PO SCH ×2 (07:27→17:13)
[2020-12-07] MEDS: DEXAMETHASONE SOD PHOSPHATE 10 MG/ML 1 ML VIAL IV SCH (07:29)
[2020-12-07] MEDS: INSULIN DETEMIR (LEVEMIR) 100 UNIT/ML SYR SQ SCH ×2 (07:29→20:44)
[2020-12-07] MEDS: PANTOPRAZOLE 40 MG/10 ML VIAL IVP SCH ×2 (07:30→20:43)
[2020-12-07] MEDS: LINEZOLID 600 MG in DEXTROSE/WATER 1 300ML.BAG IVPB SCH (07:31)
[2020-12-07] MEDS: CEFEPIME 1 GM in SODIUM CHLORIDE 0.9% 50 ML IVPB SCH ×2 (07:31→20:42)
[2020-12-07 07:50] LABS: INR 1.1 (<1.2); Prothrombin Time 11.3 sec (9.0-12.0)
[2020-12-07 11:23] LABS: Glucose,Whole Blood 160 mg/dL (75-99)
[2020-12-07] MEDS: FERROUS SULFATE 325 MG TAB PO SCH ×2 (11:29→17:13)
[2020-12-07] MEDS: DEXTROSE 5% IN WATER 1,000 ML with SODIUM BICARB (1 MEQ/ML) 150 ML IV SCH (11:30)
[2020-12-07 11:53] LABS: Basophils # (A) 0.02 X 10*3/uL (0.00-0.10); Basophils % (A) 0.1 %; Eosinophils # (A) 0 X 10*3/uL (0.04-0.35); Eosinophils % (A) 0 %; HCT 22.3 % (39.6-50.0); HGB 7.6 g/dL (13.0-17.0); Lymphocytes # (A) 0.44 X 10*3/uL (0.90-5.00); Lymphocytes % (A) 2.2 %; MCH 31.8 pg (27.0-32.0); MCHC 34.1 g/dL (32.0-37.0); MCV 93.3 fL (80.0-97.0); Mean Platelet Volume 12.4 fL (9.5-12.2); Monocytes # (A) 1.02 X 10*3/uL (0.20-1.00); Monocytes % (A) 5.1 %; Neutrophils # (A) 18.34 X 10*3/uL (1.80-7.70); Neutrophils % (A) 91.5 %; Platelet Count 66 X 10*3/uL (140-440); RBC 2.39 X 10*6/uL (4.40-5.60); RDW 16.2 % (11.5-14.5); WBC 20.04 X 10*3/uL (4.50-10.00)
--- NOTE | 2020-12-07 12:57 | P.PN ---
Subjective Patient is seen in follow for acute kidney injury on chronic kidney disease. Creatinine 3.61 as of yesterday. Labs from today pending. Hemoglobin 7.6 today. Status post multiple blood transfusions this admission. Nonoliguric. Now on high flow nasal cannula. Denies chest pain or shortness of breath. Blood pressure stable. Vital signs stable. General: The patient appeared well nourished and normally developed. HEENT: Head exam is unremarkable. Neck is without jugular venous distension. LUNGS: Breath sounds decreased. HEART: Rate and Rhythm are regular. ABDOMEN: Soft, nondistended. EXTREMITITES: No edema. Objective - Vital Signs Vital signs: Vital Signs Temp 95.7 F L 12/07/20 10:00 Pulse 61 12/07/20 10:00 Resp 25 H 12/07/20 10:00 BP 134/72 12/07/20 10:00 Pulse Ox 94 L 12/07/20 10:00 Intake & Output 12/06/20 12/07/20 12/07/20 18:59 06:59 18:59 Intake Total 620 Output Total 800 850 Balance -180 -850 Intake: Blood Product 620 Rc Cpda-1 Unit 310 [id number] Rc Pheresis As-3 Unit 310 [id number] Output: Urine 800 850 Other: Voiding Method Indwelling Catheter Indwelling Catheter Indwelling Catheter # Bowel Movements 0 - Labs CBC & Chem 7: 12/07/20 06:48 12/06/20 06:16 Labs: Abnormal Lab Results - Last 24 Hours (Table) 12/03/20 12/06/20 12/06/20 Range/Units 09:07 13:16 13:16 WBC (4.50-10.00) X 10*3/uL RBC (4.40-5.60) X 10*6/uL Hgb (13.0-17.0) g/dL Hct (39.6-50.0) % RDW (11.5-14.5) % Plt Count (140-440) X 10*3/uL Plt Count Comment MPV (9.5-12.2) fL Absolute Nucleated RBC (0.00-0.00) X 10*3/uL Immature Gran # (0.00-0.04) X 10*3/uL Neutrophils # (1.80-7.70) X 10*3/uL Lymphocytes # (0.90-5.00) X 10*3/uL Monocytes # (0.20-1.00) X 10*3/uL Eosinophils # (0.04-0.35) X 10*3/uL NRBC/100 WBC Diff (0.0-0.0) /100 WBCS Immature Plt Fraction (1.1-6.1) % Retic Count 4.8 H (0.5-2.0) % Fibrinogen (200-500) mg/dL D-Dimer (<0.60) mg/L FEU POC Glucose (mg/dL) (75-99) mg/dL TIBC 196 L (228-460) ug/dL % Saturation 51.02 H (15.00-50.00) Ferritin 1622.8 H (22.0-322.0) ng/mL Vitamin B12 1332.0 H (200.0-944.0) pg/mL Crossmatch See Detail 12/06/20 12/06/20 12/07/20 Range/Units 13:16 16:38 06:48 WBC (4.50-10.00) X 10*3/uL RBC (4.40-5.60) X 10*6/uL Hgb (13.0-17.0) g/dL Hct (39.6-50.0) % RDW (11.5-14.5) % Plt Count (140-440) X 10*3/uL Plt Count Comment MPV (9.5-12.2) fL Absolute Nucleated RBC (0.00-0.00) X 10*3/uL Immature Gran # (0.00-0.04) X 10*3/uL Neutrophils # (1.80-7.70) X 10*3/uL Lymphocytes # (0.90-5.00) X 10*3/uL Monocytes # (0.20-1.00) X 10*3/uL Eosinophils # (0.04-0.35) X 10*3/uL NRBC/100 WBC Diff (0.0-0.0) /100 WBCS Immature Plt Fraction (1.1-6.1) % Retic Count (0.5-2.0) % Fibrinogen 188 L (200-500) mg/dL D-Dimer 6.06 H (<0.60) mg/L FEU POC Glucose (mg/dL) 120 H (75-99) mg/dL TIBC (228-460) ug/dL % Saturation (15.00-50.00) Ferritin (22.0-322.0) ng/mL Vitamin B12 (200.0-944.0) pg/mL Crossmatch See Detail 12/07/20 12/07/20 12/07/20 Range/Units 06:48 06:58 11:20 WBC 20.04 H (4.50-10.00) X 10*3/uL RBC 2.39 L (4.40-5.60) X 10*6/uL Hgb 7.6 L (13.0-17.0) g/dL Hct 22.3 L (39.6-50.0) % RDW 16.2 H (11.5-14.5) % Plt Count 66 L (140-440) X 10*3/uL Plt Count Comment DECREASED A MPV 12.4 H (9.5-12.2) fL Absolute Nucleated RBC 0.05 H (0.00-0.00) X 10*3/uL Immature Gran # 0.22 H (0.00-0.04) X 10*3/uL Neutrophils # 18.34 H (1.80-7.70) X 10*3/uL Lymphocytes # 0.44 L (0.90-5.00) X 10*3/uL Monocytes # 1.02 H (0.20-1.00) X 10*3/uL Eosinophils # 0 L (0.04-0.35) X 10*3/uL NRBC/100 WBC Diff 0.2 H (0.0-0.0) /100 WBCS Immature Plt Fraction 8.2 H (1.1-6.1) % Retic Count (0.5-2.0) % Fibrinogen (200-500) mg/dL D-Dimer (<0.60) mg/L FEU POC Glucose (mg/dL) 114 H 160 H (75-99) mg/dL TIBC (228-460) ug/dL % Saturation (15.00-50.00) Ferritin (22.0-322.0) ng/mL Vitamin B12 (200.0-944.0) pg/mL Crossmatch Microbiology - Last 24 Hours (Table) 12/05/20 02:27 Blood Culture - Preliminary Blood No Growth after 48 hours 12/04/20 14:45 Urine Culture - Preliminary Urine,Voided Gram Neg Bacilli Enterococcus faecalis 12/03/20 13:07 Blood Culture - Preliminary Blood No Growth after 72 hours Assessment and Plan Plan: Assessment: 1. Acute kidney injury secondary to ATN secondary to Covid 19 infection, hypotension and acute blood loss anemia. Creatinine 3.61 . N as of yesterdayo hydronephrosis noted on kidney ultrasound. Elevated BUN due to steroids, chronic kidney disease and retroperitoneal bleed. 2. 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 Creatinine 2.0 in August 2020. 3. Covid 19 infection. Maintained on steroids, zinc. Currently on high flow cannula. 4. Diabetes mellitus. 5. Metabolic acidosis secondary to acute kidney injury and lactic acidosis. Fluid bolus was given this morning. Improved. 6. Hyponatremia secondary to acute kidney injury. Possible SIADH from respiratory infection. Better. 7. Acute blood loss anemia. Has a retroperitoneal hematoma. Evaluated by surgery. Maintained on Aranesp. Status post blood transfusion on December 04 and receiving another unit today. Status post IV DDAVP December 04 and . 8. Hypocalcemia secondary to acute kidney injury. Corrected calcium near 7.4. Replaced. Plan: Maintain gentle IV hydration. Wean FiO2. Continue to monitor renal function and urine output. Continue to assess daily for need for renal replacement therapy. Check phosphorus level.
--- NOTE | 2020-12-07 13:26 | P.PN ---
Subjective Progress Note Date: 12/07/20 Principal diagnosis: COVIV and Bicytopenia CT abdomen revealed site of hematoma, surgery is following. PLatelets continue to trend down, fibrinogen is mildly decreased will continue monitoring Objective - Vital Signs Vital signs: Vital Signs Temp 95.7 F L 12/07/20 10:00 Pulse 61 12/07/20 10:00 Resp 25 H 12/07/20 10:00 BP 134/72 12/07/20 10:00 Pulse Ox 93 L 12/07/20 10:10 Intake & Output 12/06/20 12/07/20 12/07/20 18:59 06:59 18:59 Intake Total 620 Output Total 800 850 Balance -180 -850 Intake: Blood Product 620 Rc Cpda-1 Unit 310 [id number] Rc Pheresis As-3 Unit 310 [id number] Output: Urine 800 850 Other: Voiding Method Indwelling Catheter Indwelling Catheter Indwelling Catheter # Bowel Movements 0 - Exam HIgh FLow Increased effort - Constitutional General appearance: cooperative, no acute distress - EENT Eyes: EOMI ENT: NA/AT - Neck Neck: normal ROM - Respiratory Respiratory: bilateral: diminished - Cardiovascular Rhythm: regular - Gastrointestinal General gastrointestinal: soft - Integumentary Integumentary: normal - Musculoskeletal Musculoskeletal: generalized weakness - Labs CBC & Chem 7: 12/07/20 06:48 12/06/20 06:16 Labs: Abnormal Lab Results - Last 24 Hours (Table) 12/06/20 12/06/20 12/06/20 Range/Units 13:16 13:16 13:16 WBC (4.50-10.00) X 10*3/uL RBC (4.40-5.60) X 10*6/uL Hgb (13.0-17.0) g/dL Hct (39.6-50.0) % RDW (11.5-14.5) % Plt Count (140-440) X 10*3/uL Plt Count Comment MPV (9.5-12.2) fL Absolute Nucleated RBC (0.00-0.00) X 10*3/uL Immature Gran # (0.00-0.04) X 10*3/uL Neutrophils # (1.80-7.70) X 10*3/uL Lymphocytes # (0.90-5.00) X 10*3/uL Monocytes # (0.20-1.00) X 10*3/uL Eosinophils # (0.04-0.35) X 10*3/uL NRBC/100 WBC Diff (0.0-0.0) /100 WBCS Immature Plt Fraction (1.1-6.1) % Retic Count 4.8 H (0.5-2.0) % Fibrinogen (200-500) mg/dL D-Dimer (<0.60) mg/L FEU POC Glucose (mg/dL) (75-99) mg/dL TIBC 196 L (228-460) ug/dL % Saturation 51.02 H (15.00-50.00) Ferritin 1622.8 H (22.0-322.0) ng/mL Vitamin B12 1332.0 H (200.0-944.0) pg/mL Crossmatch See Detail 12/06/20 12/07/20 12/07/20 Range/Units 16:38 06:48 06:48 WBC 20.04 H (4.50-10.00) X 10*3/uL RBC 2.39 L (4.40-5.60) X 10*6/uL Hgb 7.6 L (13.0-17.0) g/dL Hct 22.3 L (39.6-50.0) % RDW 16.2 H (11.5-14.5) % Plt Count 66 L (140-440) X 10*3/uL Plt Count Comment DECREASED A MPV 12.4 H (9.5-12.2) fL Absolute Nucleated RBC 0.05 H (0.00-0.00) X 10*3/uL Immature Gran # 0.22 H (0.00-0.04) X 10*3/uL Neutrophils # 18.34 H (1.80-7.70) X 10*3/uL Lymphocytes # 0.44 L (0.90-5.00) X 10*3/uL Monocytes # 1.02 H (0.20-1.00) X 10*3/uL Eosinophils # 0 L (0.04-0.35) X 10*3/uL NRBC/100 WBC Diff 0.2 H (0.0-0.0) /100 WBCS Immature Plt Fraction 8.2 H (1.1-6.1) % Retic Count (0.5-2.0) % Fibrinogen 188 L (200-500) mg/dL D-Dimer 6.06 H (<0.60) mg/L FEU POC Glucose (mg/dL) 120 H (75-99) mg/dL TIBC (228-460) ug/dL % Saturation (15.00-50.00) Ferritin (22.0-322.0) ng/mL Vitamin B12 (200.0-944.0) pg/mL Crossmatch 12/07/20 12/07/20 Range/Units 06:58 11:20 WBC (4.50-10.00) X 10*3/uL RBC (4.40-5.60) X 10*6/uL Hgb (13.0-17.0) g/dL Hct (39.6-50.0) % RDW (11.5-14.5) % Plt Count (140-440) X 10*3/uL Plt Count Comment MPV (9.5-12.2) fL Absolute Nucleated RBC (0.00-0.00) X 10*3/uL Immature Gran # (0.00-0.04) X 10*3/uL Neutrophils # (1.80-7.70) X 10*3/uL Lymphocytes # (0.90-5.00) X 10*3/uL Monocytes # (0.20-1.00) X 10*3/uL Eosinophils # (0.04-0.35) X 10*3/uL NRBC/100 WBC Diff (0.0-0.0) /100 WBCS Immature Plt Fraction (1.1-6.1) % Retic Count (0.5-2.0) % Fibrinogen (200-500) mg/dL D-Dimer (<0.60) mg/L FEU POC Glucose (mg/dL) 114 H 160 H (75-99) mg/dL TIBC (228-460) ug/dL % Saturation (15.00-50.00) Ferritin (22.0-322.0) ng/mL Vitamin B12 (200.0-944.0) pg/mL Crossmatch Microbiology - Last 24 Hours (Table) 12/05/20 02:27 Blood Culture - Preliminary Blood No Growth after 48 hours 12/04/20 14:45 Urine Culture - Preliminary Urine,Voided Gram Neg Bacilli Enterococcus faecalis 12/03/20 13:07 Blood Culture - Preliminary Blood No Growth after 72 hours Assessment and Plan (1) Thrombocytopenia Current Visit: Yes Status: Acute Code(s): D69.6 - THROMBOCYTOPENIA, UNSPECIFIED SNOMED Code(s): 946334405 (2) Acute on chronic renal failure Current Visit: Yes Status: Acute Code(s): N17.9 - ACUTE KIDNEY FAILURE, UNSPECIFIED; N18.9 - CHRONIC KIDNEY DISEASE, UNSPECIFIED SNOMED Code(s): 825283196 (3) COVID-19 Current Visit: Yes Status: Acute Code(s): U07.1 - COVID-19 SNOMED Code(s): 068593100 (4) Normocytic normochromic anemia Current Visit: Yes Status: Acute Code(s): D64.9 - ANEMIA, UNSPECIFIED SN OMED Code(s): 79042620 Plan: Assessment and Recommendations: Bicytopenia: - Likely Multifactorial: Secondary to bone marrow supression with prolonged illness, assess for DIC, Assess for Bleeding (CT ordered), HIT antibodies in process - Transfuse PRBC hemoglon less than 7 - Platelets less 15, or less than 40K if s/s bleeding - AC should be ok to resume if no active bleeding is found and hemoglobin starts to stabilize CT Abdomen reveal underlying etiology of blood loss and/or contributing factor Platelets do continue to trend down, Fibrinogen decreased, however in safe range, will monitor daily for now. Await HIT antibodies before using heparin based AC until this has resulted
--- NOTE | 2020-12-07 14:06 | P.PN ---
<Namrata Odell - Last Filed: 12/07/20 13:58> Subjective Progress Note Date: 12/07/20 CHIEF COMPLAINT: COVID-19 pneumonia HISTORY OF PRESENT ILLNESS: Surgical service is following regards to patient's retroperitoneal hematoma. Patient denies any abdominal pain. Denies any back pain. Patient did receive Aranesp and DDAVP yesterday. He also received 2 units of blood. Hemoglobin came up from 6.1-7.6. Afebrile. WBC 20.04 hemoglobin 7.6 platelets 66 creatinine 3.61 PHYSICAL EXAM: VITAL SIGNS: Reviewed GENERAL: Well-developed in no acute distress. HEENT: No sclera icterus. Extraocular movements grossly intact. Moist buccal mucosa. Head is atraumatic, normocephalic. Hears conversational speech. No nasal d rainage. NECK: Supple without lymphadenopathy. CHEST: Non-labored respirations and equal bilateral excursions. CARDIOVASCULAR: Palpable 2+ radial pulses. ABDOMEN: Soft. Nondistended. Nontender. MUSCULOSKELETAL: No clubbing or cyanosis. NEUROLOGIC: No focal or lateralizing signs. Cranial nerves II through XII grossly intact. PSYCH: Appropriate affect. Alert and oriented to person, place and time. SKIN: Well perfused. Good skin turgor. ASSESSMENT: 1. Retroperitoneal hematoma 2. Acute blood loss anemia secondary to Retroperitoneal bleed 3. COVID-19 pneumonia 4. Acute hypoxic respiratory failure secondary to COVID-19 pneumonia 5. Acute myocarditis 6. Acute kidney injury followed by nephrology 7. Chronic kidney disease stage IV 8. History of AICD 9. History of diabetes mellitus type 2 PLAN: -No surgical intervention planned -We'll continue to observe patient -Continue to monitor hemoglobin Physician Agricultural Scientist note has been reviewed by physician. Signing provider agrees with the documented findings, assessment, and plan of care. Objective - Vital Signs Vital signs: Vital Signs Temp 95.7 F L 12/07/20 10:00 Pulse 61 12/07/20 10:00 Resp 25 H 12/07/20 10:00 BP 134/72 12/07/20 10:00 Pulse Ox 93 L 12/07/20 10:10 Intake & Output 12/06/20 12/07/20 12/07/20 18:59 06:59 18:59 Intake Total 620 Output Total 800 850 Balance -180 -850 Intake: Blood Product 620 Rc Cpda-1 Unit 310 [id number] Rc Pheresis As-3 Unit 310 [id number] Output: Urine 800 850 Other: Voiding Method Indwelling Catheter Indwelling Catheter Indwelling Catheter # Bowel Movements 0 - Labs CBC & Chem 7: 12/07/20 06:48 12/06/20 06:16 Labs: Abnormal Lab Results - Last 24 Hours (Table) 12/06/20 12/06/20 12/06/20 Range/Units 13:16 13:16 13:16 WBC (4.50-10.00) X 10*3/uL RBC (4.40-5.60) X 10*6/uL Hgb (13.0-17.0) g/dL Hct (39.6-50.0) % RDW (11.5-14.5) % Plt Count (140-440) X 10*3/uL Plt Count Comment MPV (9.5-12.2) fL Absolute Nucleated RBC (0.00-0.00) X 10*3/uL Immature Gran # (0.00-0.04) X 10*3/uL Neutrophils # (1.80-7.70) X 10*3/uL Lymphocytes # (0.90-5.00) X 10*3/uL Monocytes # (0.20-1.00) X 10*3/uL Eosinophils # (0.04-0.35) X 10*3/uL NRBC/100 WBC Diff (0.0-0.0) /100 WBCS Immature Plt Fraction (1.1-6.1) % Retic Count 4.8 H (0.5-2.0) % Fibrinogen (200-500) mg/dL D-Dimer (<0.60) mg/L FEU POC Glucose (mg/dL) (75-99) mg/dL TIBC 196 L (228-460) ug/dL % Saturation 51.02 H (15.00-50.00) Ferritin 1622.8 H (22.0-322.0) ng/mL Vitamin B12 1332.0 H (200.0-944.0) pg/mL Crossmatch See Detail 12/06/20 12/07/20 12/07/20 Range/Units 16:38 06:48 06:48 WBC 20.04 H (4.50-10.00) X 10*3/uL RBC 2.39 L (4.40-5.60) X 10*6/uL Hgb 7.6 L (13.0-17.0) g/dL Hct 22.3 L (39.6-50.0) % RDW 16.2 H (11.5-14.5) % Plt Count 66 L (140-440) X 10*3/uL Plt Count Comment DECREASED A MPV 12.4 H (9.5-12.2) fL Absolute Nucleated RBC 0.05 H (0.00-0.00) X 10*3/uL Immature Gran # 0.22 H (0.00-0.04) X 10*3/uL Neutrophils # 18.34 H (1.80-7.70) X 10*3/uL Lymphocytes # 0.44 L (0.90-5.00) X 10*3/uL Monocytes # 1.02 H (0.20-1.00) X 10*3/uL Eosinophils # 0 L (0.04-0.35) X 10*3/uL NRBC/100 WBC Diff 0.2 H (0.0-0.0) /100 WBCS Immature Plt Fraction 8.2 H (1.1-6.1) % Retic Count (0.5-2.0) % Fibrinogen 188 L (200-500) mg/dL D-Dimer 6.06 H (<0.60) mg/L FEU POC Glucose (mg/dL) 120 H (75-99) mg/dL TIBC (228-460) ug/dL % Saturation (15.00-50.00) Ferritin (22.0-322.0) ng/mL Vitamin B12 (200.0-944.0) pg/mL Crossmatch 12/07/20 12/07/20 Range/Units 06:58 11:20 WBC (4.50-10.00) X 10*3/uL RBC (4.40-5.60) X 10*6/uL Hgb (13.0-17.0) g/dL Hct (39.6-50.0) % RDW (11.5-14.5) % Plt Count (140-440) X 10*3/uL Plt Count Comment MPV (9.5-12.2) fL Absolute Nucleated RBC (0.00-0.00) X 10*3/uL Immature Gran # (0.00-0.04) X 10*3/uL Neutrophils # (1.80-7.70) X 10*3/uL Lymphocytes # (0.90-5.00) X 10*3/uL Monocytes # (0.20-1.00) X 10*3/uL Eosinophils # (0.04-0.35) X 10*3/uL NRBC/100 WBC Diff (0.0-0.0) /100 WBCS Immature Plt Fraction (1.1-6.1) % Retic Count (0.5-2.0) % Fibrinogen (200-500) mg/dL D-Dimer (<0.60) mg/L FEU POC Glucose (mg/dL) 114 H 160 H (75-99) mg/dL TIBC (228-460) ug/dL % Saturation (15.00-50.00) Ferritin (22.0-322.0) ng/mL Vitamin B12 (200.0-944.0) pg/mL Crossmatch Microbiology - Last 24 Hours (Table) 12/05/20 02:27 Blood Culture - Preliminary Blood No Growth after 48 hours 12/04/20 14:45 Urine Culture - Preliminary Urine,Voided Gram Neg Bacilli Enterococcus faecalis 12/03/20 13:07 Blood Culture - Preliminary Blood No Growth after 72 hours <Yanet Levin - Last Filed: 01/26/21 22:42> Subjective CHIEF COMPLAINT: Hematoma HISTORY OF PRESENT ILLNESS: The patient is a 75 year old male admitted for fatigue and weakness over 2 weeks. He presented COVID positive including acute renal failure. He was started on treatment for COVID. He is being followed by infectious disease. Patient had blood in stools including acute blood loss anemia with hemoglobin drop from 10.5 to 6.8 mg/dL. He had been transfused bl ood. He had been on blood thinners recently. Gastroenterology team is following. CT of the abdomen and pelvis demonstrated new hematoma. He denies any abdominal pain. No reports of back pain. General surgery is consulted for management of retroperitoneal hematoma. REVIEW OF ORGAN SYSTEMS: No new chest pain. No nause or vomiting. No recent stroke. PHYSICAL EXAM: VITALS: Reviewed CONSTITUTIONAL: Well developed and in no acute distress. EYES: Conjuctivae without sclera icterus. Extraocular movements grossly intact. HEAD, EARS, NOSE, THROAT: Moist buccal mucosa. Hears conversational speech. No nasal drainage. RESPIRATORY: Non-labored respirations and equal bilateral excursions. No gross wheezes. CARDIOVASCULAR: Palpable 2+ radial pulses. ABDOMEN: No peritonitis. No palpable tenderness MUSCULOSKELETAL: Nail and fingers with good capillary refill. SKIN: Warm and well perfused with good skin turgor. NEUROLOGIC: Cranial nerves II through XII grossly intact. Sensation upper and extremities intact. No focal or lateralizing signs. PSYCH: Alert and oriented to self CLINCAL LABS: Reviewed. WBC elevated 20.6, Hemoglobin down up from 6.1 to 7.6. Platelets down 95 to 77, now 66 thrombocytopenia. Creatinine is down from 3.61 to 3.2 and BUN elevated over 150 now 154. ASSESSMENT: 1. Retroperitoneal hematoma 2. COVID-19 pneumonia 3. Acute pancreatitis 4. Acute renal failure 5. Uremia 6. Sepsis 7. Thrombocytopenia PLAN: 1. Continue treatment for COVID 2. Hold anticoagulants. 3. Augment bone marrow. Objective - Vital Signs Vital signs: Vital Signs Temp 97 F L 12/08/20 17:43 Pulse 76 12/08/20 17:43 Resp 18 12/08/20 17:43 BP 122/71 12/08/20 17:43 Pulse Ox 95 12/08/20 17:43 Intake & Output 12/08/20 12/08/20 12/09/20 06:59 18:59 06:59 Intake Total 20 Output Total 700 Balance -680 Weight 85.2 kg Intake: IV 20 Output: Urine 700 Other: Voiding Method Indwelling Catheter Indwelling Catheter - Labs CBC & Chem 7: 12/16/20 06:59 12/18/20 07:14 Labs: Abnormal Lab Results - Last 24 Hours (Table) 12/07/20 12/07/20 12/07/20 Range/Units 06:48 06:48 20:16 WBC (4.50-10.00) X 10*3/uL RBC (4.40-5.60) X 10*6/uL Hgb (13.0-17.0) g/dL Hct (39.6-50.0) % RDW (11.5-14.5) % Plt Count (140-440) X 10*3/uL Plt Count Comment MPV (9.5-12.2) fL Absolute Nucleated RBC (0.00-0.00) X 10*3/uL Immature Gran # (0.00-0.04) X 10*3/uL Neutrophils # (1.80-7.70) X 10*3/uL Lymphocytes # (0.90-5.00) X 10*3/uL Eosinophils # (0.04-0.35) X 10*3/uL NRBC/100 WBC Diff (0.0-0.0) /100 WBCS Immature Plt Fraction (1.1-6.1) % Fibrinogen (200-500) mg/dL Carbon Dioxide 20.4 L (21.6-31.8) mmol/L Anion Gap 16.60 H (4.00-12.00) mmol/L BUN 154.0 H* (9.0-27.0) mg/dL Creatinine 3.2 H (0.6-1.5) mg/dL Est GFR (CKD-EPI)AfAm 21.0 L (60.0-200.0) Est GFR (CKD-EPI)NonAf 18.1 L (60.0-200.0) BUN/Creatinine Ratio 48.13 H (12.00-20.00) Ratio POC Glucose (mg/dL) 211 H (75-99) mg/dL Calcium 6.1 L* (8.7-10.3) mg/dL Phosphorus 8.0 H (2.4-5.1) mg/dL Lactate Dehydrogenase 971 H (120-246) U/L Total Protein (PEP) 4.0 L (6.2-8.2) g/dL Albumin (PEP) 2.34 L (3.80-4.90) g/dL Nwrbb-8-Jxhlcnycz 0.58 L (0.60-1.00) g/dL Beta Globulins 0.41 L (0.60-1.30) g/dL Gamma Globulins 0.40 L (0.70-1.50) g/dL 12/08/20 12/08/20 12/08/20 Range/Units 06:35 06:35 06:35 WBC 19.60 H (4.50-10.00) X 10*3/uL RBC 2.22 L (4.40-5.60) X 10*6/uL Hgb 7.0 L (13.0-17.0) g/dL Hct 21.2 L (39.6-50.0) % RDW 16.6 H (11.5-14.5) % Plt Count 77 L (140-440) X 10*3/uL Plt Count Comment DECREASED A MPV 13.2 H (9.5-12.2) fL Absolute Nucleated RBC 0.05 H (0.00-0.00) X 10*3/uL Immature Gran # 0.22 H (0.00-0.04) X 10*3/uL Neutrophils # 17.89 H (1.80-7.70) X 10*3/uL Lymphocytes # 0.47 L (0.90-5.00) X 10*3/uL Eosinophils # 0.03 L (0.04-0.35) X 10*3/uL NRBC/100 WBC Diff 0.3 H (0.0-0.0) /100 WBCS Immature Plt Fraction 6.4 H (1.1-6.1) % Fibrinogen 174 L (200-500) mg/dL Carbon Dioxide (21.6-31.8) mmol/L Anion Gap 14.50 H (4.00-12.00) mmol/L BUN 145.0 H* (9.0-27.0) mg/dL Creatinine 3.1 H (0.6-1.5) mg/dL Est GFR (CKD-EPI)AfAm 21.8 L (60.0-200.0) Est GFR (CKD-EPI)NonAf 18.8 L (60.0-200.0) BUN/Creatinine Ratio 46.77 H (12.00-20.00) Ratio POC Glucose (mg/dL) (75-99) mg/dL Calcium 6.4 L* (8.7-10.3) mg/dL Phosphorus (2.4-5.1) mg/dL Lactate Dehydrogenase (120-246) U/L Total Protein (PEP) (6.2-8.2) g/dL Albumin (PEP) (3.80-4.90) g/dL Gecuj-0-Yozwinnmi (0.60-1.00) g/dL Beta Globulins (0.60-1.30) g/dL Gamma Globulins (0.70-1.50) g/dL 12/08/20 12/08/20 12/08/20 Range/Units 06:58 11:23 11:35 WBC (4.50-10.00) X 10*3/uL RBC (4.40-5.60) X 10*6/uL Hgb (13.0-17.0) g/dL Hct (39.6-50.0) % RDW (11.5-14.5) % Plt Count (140-440) X 10*3/uL Plt Count Comment MPV (9.5-12.2) fL Absolute Nucleated RBC (0.00-0.00) X 10*3/uL Immature Gran # (0.00-0.04) X 10*3/uL Neutrophils # (1.80-7.70) X 10*3/uL Lymphocytes # (0.90-5.00) X 10*3/uL Eosinophils # (0.04-0.35) X 10*3/uL NRBC/100 WBC Diff (0.0-0.0) /100 WBCS Immature Plt Fraction (1.1-6.1) % Fibrinogen (200-500) mg/dL Carbon Dioxide (21.6-31.8) mmol/L Anion Gap (4.00-12.00) mmol/L BUN (9.0-27.0) mg/dL Creatinine (0.6-1.5) mg/dL Est GFR (CKD-EPI)AfAm (60.0-200.0) Est GFR (CKD-EPI)NonAf (60.0-200.0) BUN/Creatinine Ratio (12.00-20.00) Ratio POC Glucose (mg/dL) 100 H 59 L 63 L (75-99) mg/dL Calcium (8.7-10.3) mg/dL Phosphorus (2.4-5.1) mg/dL Lactate Dehydrogenase (120-246) U/L Total Protein (PEP) (6.2-8.2) g/dL Albumin (PEP) (3.80-4.90) g/dL Dsmso-7-Jytpfvbtb (0.60-1.00) g/dL Beta Globulins (0.60-1.30) g/dL Gamma Globulins (0.70-1.50) g/dL 12/08/20 Range/Units 11:49 WBC (4.50-10.00) X 10*3/uL RBC (4.40-5.60) X 10*6/uL Hgb (13.0-17.0) g/dL Hct (39.6-50.0) % RDW (11.5-14.5) % Plt Count (140-440) X 10*3/uL Plt Count Comment MPV (9.5-12.2) fL Absolute Nucleated RBC (0.00-0.00) X 10*3/uL Immature Gran # (0.00-0.04) X 10*3/uL Neutrophils # (1.80-7.70) X 10*3/uL Lymphocytes # (0.90-5.00) X 10*3/uL Eosinophils # (0.04-0.35) X 10*3/uL NRBC/100 WBC Diff (0.0-0.0) /100 WBCS Immature Plt Fraction (1.1-6.1) % Fibrinogen (200-500) mg/dL Carbon Dioxide (21.6-31.8) mmol/L Anion Gap (4.00-12.00) mmol/L BUN (9.0-27.0) mg/dL Creatinine (0.6-1.5) mg/dL Est GFR (CKD-EPI)AfAm (60.0-200.0) Est GFR (CKD-EPI)NonAf (60.0-200.0) BUN/Creatinine Ratio (12.00-20.00) Ratio POC Glucose (mg/dL) 409 H (75-99) mg/dL Calcium (8.7-10.3) mg/dL Phosphorus (2.4-5.1) mg/dL Lactate Dehydrogenase (120-246) U/L Total Protein (PEP) (6.2-8.2) g/dL Albumin (PEP) (3.80-4.90) g/dL Yiaen-9-Aywbskayq (0.60-1.00) g/dL Beta Globulins (0.60-1.30) g/dL Gamma Globulins (0.70-1.50) g/dL Microbiology - Last 24 Hours (Table) 12/03/20 13:07 Blood Culture - Preliminary Blood No Growth after 120 hours 12/05/20 02:27 Blood Culture - Preliminary Blood No Growth after 72 hours 12/04/20 14:45 Urine Culture - Final Urine,Voided Escherichia coli Enterococcus faecalis
[2020-12-07 14:30] LABS: Immunoglobulin M 22.6 mg/dL (40.0-280.0)
--- NOTE | 2020-12-07 15:02 | US ---
"EXAMINATION TYPE: US venous doppler duplex LE DATE OF EXAM: 12/07/2020 2:42 PM COMPARISON: NONE CLINICAL HISTORY: rule out DVT. Covid patient with edematous left leg SIDE PERFORMED: Bilateral TECHNIQUE: The lower extremity deep venous system is examined utilizing real time linear array sonog main with graded compression, doppler sonography and color-flow sonography. VESSELS IMAGED: Common Femoral Vein Deep Femoral Vein Greater Saphenous Vein * Femoral Vein Popliteal Vein Small Saphenous Vein * Proximal Calf Veins (* superficial vessels) Right Leg: Negative for DVT Left Leg: internal echoes within dist femoral vein up through CFV, vein did not compress and no flow seen, only able to image popiteal vein with color assessment which was normal, unable to do compress ion images due to patients inability to move or hold leg. Grayscale, color doppler, spectral doppler imaging performed of the deep veins of the bilateral lower extremities. . IMPRESSION: Acute DVT in the left lower extremity with hyperexpanded material filling the lumen and absent color flow, this begins in the superficial femoral vein with more prominent findings in the mi d and distal superficial femoral vein. Findings new from ultrasound study 8 days earlier. A Yellow level critical message alert has been initiated for Jersey Fritz MD via the [employer] 36 0 | Critical Results System on 12/07/2020 3:00 PM. This message alert has been sent to Jersey Fritz MD via the preferences provided by the clinician for the receipt of Radiology Critical Findings. [facility] ID [id number]."
--- NOTE | 2020-12-07 15:44 | P.PN ---
Subjective Progress Note Date: 12/07/20 Principal diagnosis: Drop in hemoglobin, anemia Pleasant 75-year-old white male who was admitted to the hospital over 2 weeks ago with acute COVID-19 pneumonia. He tested positive for Crohn virus PCR and 11/19/20, since then he has been in the hospital being treated with antibiotics. He was on Lovenox prophylactically, it has been discontinued. The patient remains on high flow oxygen and had some gradual improvement. He initially had high fevers, infectious diseases on consult and following patient closely. Patient has been hypothermic and has had a bear hugger on. Gastroenterology was asked to see the patient as he had a drop in his hemoglobin. He is status post 3 units of PRBC transfusion. He has a history of chronic anemia and states he gets transfusions every 3 weeks. He had a CT of the abdomen and pelvis yesterday which showed a retroperitoneal hematoma He still states he has no abdominal pain, nausea, or vomiting. He has no signs or symptoms of GI bleed. Objective - Vital Signs Vital signs: Vital Signs Temp 95.5 F L 12/07/20 14:00 Pulse 64 12/07/20 14:00 Resp 22 12/07/20 14:00 BP 112/67 12/07/20 14:00 Pulse Ox 90 L 12/07/20 14:00 Intake & Output 12/06/20 12/07/20 12/07/20 18:59 06:59 18:59 Intake Total 620 Output Total 800 850 400 Balance -180 -850 -400 Intake: Blood Product 620 Rc Cpda-1 Unit 310 [id number] Rc Pheresis As-3 Unit 310 [id number] Output: Urine 800 850 400 Other: Voiding Method Indwelling Catheter Indwelling Catheter Indwelling Catheter # Bowel Movements 0 - Exam General appearance: The patient is alert, oriented, appears in no acute distress. Bear hugger in place. HET: Head is normocephalic and atraumatic. Conjunctiva pink. Sclera anicteric. Neck: Supple without lymphadenopathy. Abdomen: Soft, nontender, nondistended with bowel sounds. No guarding or rigidity. Extremities: Normal skin color and turgor. No pedal edema Skin: No rashes, no jaundice Neurological: No focal deficits. Alert and oriented 3. - Labs CBC & Chem 7: 12/07/20 06:48 12/06/20 06:16 Labs: Abnormal Lab Results - Last 24 Hours (Table) 12/06/20 12/06/20 12/06/20 Range/Units 13:16 13:16 16:38 WBC (4.50-10.00) X 10*3/uL RBC (4.40-5.60) X 10*6/uL Hgb (13.0-17.0) g/dL Hct (39.6-50.0) % RDW (11.5-14.5) % Plt Count (140-440) X 10*3/uL Plt Count Comment MPV (9.5-12.2) fL Absolute Nucleated RBC (0.00-0.00) X 10*3/uL Immature Gran # (0.00-0.04) X 10*3/uL Neutrophils # (1.80-7.70) X 10*3/uL Lymphocytes # (0.90-5.00) X 10*3/uL Monocytes # (0.20-1.00) X 10*3/uL Eosinophils # (0.04-0.35) X 10*3/uL NRBC/100 WBC Diff (0.0-0.0) /100 WBCS Immature Plt Fraction (1.1-6.1) % Fibrinogen (200-500) mg/dL D-Dimer (<0.60) mg/L FEU POC Glucose (mg/dL) 120 H (75-99) mg/dL TIBC 196 L (228-460) ug/dL % Saturation 51.02 H (15.00-50.00) Ferritin 1622.8 H (22.0-322.0) ng/mL Vitamin B12 1332.0 H (200.0-944.0) pg/mL IgG (700.0-1600.0) mg/dL IgM (40.0-280.0) mg/dL Crossmatch See Detail 12/07/20 12/07/20 12/07/20 Range/Units 06:48 06:48 06:48 WBC 20.04 H (4.50-10.00) X 10*3/uL RBC 2.39 L (4.40-5.60) X 10*6/uL Hgb 7.6 L (13.0-17.0) g/dL Hct 22.3 L (39.6-50.0) % RDW 16.2 H (11.5-14.5) % Plt Count 66 L (140-440) X 10*3/uL Plt Count Comment DECREASED A MPV 12.4 H (9.5-12.2) fL Absolute Nucleated RBC 0.05 H (0.00-0.00) X 10*3/uL Immature Gran # 0.22 H (0.00-0.04) X 10*3/uL Neutrophils # 18.34 H (1.80-7.70) X 10*3/uL Lymphocytes # 0.44 L (0.90-5.00) X 10*3/uL Monocytes # 1.02 H (0.20-1.00) X 10*3/uL Eosinophils # 0 L (0.04-0.35) X 10*3/uL NRBC/100 WBC Diff 0.2 H (0.0-0.0) /100 WBCS Immature Plt Fraction 8.2 H (1.1-6.1) % Fibrinogen 188 L (200-500) mg/dL D-Dimer 6.06 H (<0.60) mg/L FEU POC Glucose (mg/dL) (75-99) mg/dL TIBC (228-460) ug/dL % Saturation (15.00-50.00) Ferritin (22.0-322.0) ng/mL Vitamin B12 (200.0-944.0) pg/mL IgG 458.0 L (700.0-1600.0) mg/dL IgM 22.6 L (40.0-280.0) mg/dL Crossmatch 12/07/20 12/07/20 Range/Units 06:58 11:20 WBC (4.50-10.00) X 10*3/uL RBC (4.40-5.60) X 10*6/uL Hgb (13.0-17.0) g/dL Hct (39.6-50.0) % RDW (11.5-14.5) % Plt Count (140-440) X 10*3/uL Plt Count Comment MPV (9.5-12.2) fL Absolute Nucleated RBC (0.00-0.00) X 10*3/uL Immature Gran # (0.00-0.04) X 10*3/uL Neutrophils # (1.80-7.70) X 10*3/uL Lymphocytes # (0.90-5.00) X 10*3/uL Monocytes # (0.20-1.00) X 10*3/uL Eosinophils # (0.04-0.35) X 10*3/uL NRBC/100 WBC Diff (0.0-0.0) /100 WBCS Immature Plt Fraction (1.1-6.1) % Fibrinogen (200-500) mg/dL D-Dimer (<0.60) mg/L FEU POC Glucose (mg/dL) 114 H 160 H (75-99) mg/dL TIBC (228-460) ug/dL % Saturation (15.00-50.00) Ferritin (22.0-322.0) ng/mL Vitamin B12 (200.0-944.0) pg/mL IgG (700.0-1600.0) mg/dL IgM (40.0-280.0) mg/dL Crossmatch Microbiology - Last 24 Hours (Table) 12/03/20 13:07 Blood Culture - Preliminary Blood No Growth after 96 hours 12/05/20 02:27 Blood Culture - Preliminary Blood No Growth after 48 hours 12/04/20 14:45 Urine Culture - Preliminary Urine,Voided Gram Neg Bacilli Enterococcus faecalis Assessment and Plan (1) Normocytic normochromic anemia Narrative/Plan: This is a pleasant 75-year-old male patient who was admitted with COVID-19 pneumonia, he had a gradual drop in his hemoglobin throughout the course of his hospitalization with an acute drop a few days ago. His hemoglobin dropped from 10-6, his baseline appears to be between 8 and 9. He has seen also on outpatient basis for anemia of chronic disease. He is now status post 3 units of PRBC transfusion. He has had no evidence of any GI bleed. We likely most dealing with anemia of chronic disease, with no plans for any endoscopic evaluation at this time. Current Visit: Yes Status: Acute Code(s): D64.9 - ANEMIA, UNSPECIFIED SNO MED Code(s): 37451526 (2) COVID-19 Narrative/Plan: He should've presently being treated for COVID-19 pneumonia on IV dexamethasone and broad-spectrum antibiotics. Current Visit: Yes Status: Acute Code(s): U07.1 - COVID-19 SNOMED Code(s): 431608771 (3) Chronic kidney disease Narrative/Plan: Has a history of chronic kidney disease with likely acute kidney injury superimposed with worsening BUN and creatinine. Nephrology following patient closely Current Visit: Yes Status: Acute Code(s): N18.9 - CHRONIC KIDNEY DISEASE, UNSPECIFIED SNOMED Code(s): 782281205 (4) Retroperitoneal hematoma Narrative/Plan: Surgery has been consulted Current Visit: Yes Status: Acute Code(s): K66.1 - HEMOPERITONEUM SNOMED Code(s): 169262638 Plan: 1. Continue symptomatic and supportive care 2. Diet as tolerated 3. Repeat daily CBC, transfuse for hemoglobin less than 7 4. No plans for endoscopic evaluation at this time, patient's anemia is normocytic, normochromic and is likely dealing with anemia of chronic disease as well as evidence of peritoneal hematoma Thank you for this consultation, we will sign off at this time Dr. Lydia Darling I agree with the dictator's note, documented as a scribe by Yakelin Torres.
--- NOTE | 2020-12-07 15:48 | P.PN ---
Subjective Progress Note Date: 12/07/20 Principal diagnosis: Acute COVID-19 pneumonia Acute COVID-19 pneumonia 75-year-old male patient, started having symptoms approximately a week ago when he started feeling a bit tired and fatigued. He subsequently developed fever and diminished appetite and some diarrhea. The patient tested positive for COVID 19 infection 4 days ago and this was again confirmed on 11/19/2020. The patient came into the emergency with weakness and shortness of breath. The patient is currently on 2 L of oxygen by nasal cannula. He is known to have CAD, previous bypass, aortic, chronic disease, diabetes mellitus and diabetic retinopathy and neuropathy and hypothyroidism and gout. Lactate was 0.7, there d-dimer was 0.6, white cell count was at 3.2 with a lymphopenia, creatinine was at 3.37 with a mean of 61. He is also on multivitamins. Chest x-ray showing diffuse bilateral pulmonary infiltrates. On today's evaluation of 4 [phone] the patient is currently on oxygen at 4 L per minute. The patient is quite comfortable. Pulse ox is around 95% and FiO2 can be obviously weaned off. The patient is being seen for a follow-up. The patient is currently being treated with Decadron 6 mg IV every 24 hours. The patient is also on Lovenox 40 mg subcu daily and the patient is also on Remdesivir day #2. No follow-up chest x-rays available from today. The rest of the labs are showing chronic kidney disease with a creatinine of 2.7. The patient has chronic metabolic acidosis which is of a non-anion gap type. On 11/22/2020 patient seen in follow-up. Is comfortable, still desat easily, feels tired, but no acute distress, today's labs have been reviewed, d-dimer 0.69, CRP is 35.6, no LDH. Has not had a chest x-ray, he is currently on 7 L, his pulse ox is 89%, no fever, remains on Remdesivir, today is day 3 of treatment. On 11/23/2020 patient is pretty stable, he remains on 5 L of oxygen, her pulse ox 89-90%, he is breathing comfortably, no worsening dyspnea, his 0.9, saline at 60 per hour, patient completed Remdesivir treatment, he remains on steroids, and prophylactic Lovenox. No worsening dyspnea, today's labs have been reviewed, d- dimer is 1.90, renal profile is slightly improved from yesterday, patient continues on IV fluids, no nausea vomiting or diarrhea, CRP is trending down, LDH with today is pending. On 11/25/2000 patient seen in follow-up on medical surgical floor, he is sitting up in the chair, appears to be breathing comfortably although his oxygen requirements have increased, and is currently on 15 L per high flow nasal cannula up from 12 L from yesterday, he denies any worsening dyspnea, lung sounds reveal diffuse bilateral crackles, no chest discomfort, no signs of any respiratory distress. No cough, no wheezing, today's chest x-ray shows bilateral mid to lower lung increased opacities, findings consistent with COVID- 19 pneumonia, the findings are stable in appearance. Follow-up inflammatory markers showed d-dimer of 19.16, LDH is up to 2028, CRP is 2.4. Patient has completed his Remdesivir course, she remains on daily dose of Decadron 6 mg, and Lovenox 30 mg daily, his renal function appears to be relatively stable, his bun is 64, and creatinine is 2.12 On 11/26/2020 patient seen in follow-up on medical surgical floor, he sitting up in the chair, he is breathing comfortably, he is currently down to 13 L, and his pulse ox is 90-94%, his been afebrile, overall she looks stable, he does not appear to be in any acute distress, he is a d-dimer has trended up, and on today's labs it is up to 30.3, and his Lovenox dose will be adjusted. Today's inflammatory markers are improving. He remains on daily dose IV Decadron 6 mg daily, Lovenox, multivitamins, and his IV fluids are infusing at a rate of 60 ML per hour, no new chest x-ray today, his kidney function shows slight improvement On 11/27/2000 patient seen in follow-up on medical surgical floor, he remains on high flow oxygen 15 L, and the nonrebreather mask, he does desat when he removes his nonrebreather mask down to 86% however he denies any dyspnea, he does not feel stressed at all, and looks very comfortable, he sitting up in the recliner, awake and alert, oriented 3, he is afebrile, hemodynamically has been stable, he has no specific complaints, and his today's chest x-ray shows cardiomegaly and low lung volumes with bilateral mid to lower lung reticular and confluent opacities consistent with COVID-19 pneumonia with no change from previousexam. Today's labs have been reviewed, white blood cell count is 5.45, hemoglobin is 9.3, no d-dimer today, but yesterday's d-dimer was quite elevated at 30.3, and his Lovenox dose was adjusted and increased to 40 mg twice a day, his electrolyte panel shows CO2 of 28.1, but prostate electrolytes are within normal limits, B1 is 84, creatinine is 2.2, his LDH is down to 687, improving, his CRP is 1.2 on today's labs. He continues on Decadron 6 mg daily, he is on Lovenox 40 mg twice a day, and he is receiving IV hydration at 60 ML per hour, nephrology is following On 11/28/2020 patient seen in follow-up on medical surgical floor, he is resting comfortably in bed, he is currently on 15 L high flow and 100% nonrebreather, he looks quite comfortable, he denies any shortness of breath, minimal cough, he is breathing comfortably, his pro-calcitonin level was low, his inflammatory markers were improving, his d-dimer was elevated on 11/26/2020 patient is on 40 mg of Lovenox twice daily, Lasix is at 40 mg every 12 hours patient is in negative fluid balance. No new chest x-ray today On 11/29/2000 patient seen in follow-up on medical surgical floor, is currently on 15 L per high flow nasal cannula, and 100 nonrebreather mask, and he is satting about 93%, he does not feel short of breath, he seems to be breathing very comfortably, he is afebrile, hemodynamically stable, his chest x-ray today shows low lung volumes with bilateral mid to lower lung reticular and confluent opacities consistent with COVID-19 pneumonia. Findings are similar to his previous chest x-ray, lower extremity Dopplers were completed and he was negative for DVT. His d-dimer is trending down, and is down to 16.0. The rest of his lab work has been reviewed, showing white blood cell count of 8.7, hemoglobin of 10.5, sodium is 136, potassium is 4.5, chloride is 98, BUN of 108, and creatinine is 3.2, his calcitonin level was negative at 0.10, his inflammatory markers were improving since admission. No nausea vomiting or diarrhea, and patient continues on daily dose of IV Decadron 6 mg, continues on Lovenox 40 mg twice daily, she was given a dose of Lasix yesterday and he was started on maintenance dose of IV Lasix On 11/30/2020 patient seen in follow-up on medical surgical floor, he is resting comfortably in bed, currently off the nonrebreather mask, on 15 L per high flow nasal cannula with his pulse ox is 90-91%, he looks very comfortable, breathing comfortably, no worsening dyspnea. Cooperative chest discomfort, no cough. No fever or chills. No acute events overnight, patient did receive 1 dose of Toci yesterday 720 mg, he remains on Lovenox 40 mg twice a day, and daily dose Decadron, today's labs have been reviewed, showing white blood cell, 10.1, hemoglobin of 10.3, d-dimer is trending down, down to 11.4, electrolytes are within normal limits, renal profile shows some improvement, pro-Joshua was negative, inflammatory markers are trending down, patient denies any specific complaints On 12/01/2020 patient seen in follow-up on medical surgical floor, is currently on 15 L per high flow nasal cannula and nonrebreather mask, and his pulse ox is 100%, he is breathing very comfortably, denies any cough, denies any chest pain, has had no fever or chills, no nausea vomiting diarrhea, no abdominal pain, no new chest x-rays, his labs have been reviewed, d-dimer today is 12.5, electroly angel are unremarkable, his renal profile slightly improved, his BUN is 113, and creatinine is 2.59. On 12/02/2020 patient seen in follow-up on medical surgical floor, he is currently back on 11 L of oxygen resting comfortably in bed, in comfortably, in his pulse ox was 99%, we dropped the FiO2 down to 8 L, and we instructed the nursing staff to continue weaning it to maintain O2 saturations at or above 90%, patient has no specific complaints, no cough, no chest discomfort, no fever, no chills no headaches, no nausea vomiting or diarrhea. Renal function continues to be impaired, and nephrology is following, his BUN is 1:30, and creatinine is 2.70, electrolytes were unremarkable on today's labs. No new chest x-ray today. Patient remains on IV Decadron 6 mg, and Lovenox is currently at 40 mg twice daily. Follow-up d-dimer is pending for today. On the 12/04/2020 patient seen in follow-up on medical surgical floor, he is currently on 7 L per high flow nasal cannula, his pulse ox is about 86-95%, although she looks very pale, his hemoglobin today is down to 6.0 and patient has not had any obvious bleeding, no hematemesis, no melena, abdomen is soft, no abdominal pain, he is a bit drowsy, he is mildly short of breath but does not appear to be in any acute distress, he was also found to be hypothermic, and appear hugger was applied, he received a unit of packed red blood cells, on in the 2 units are pending for transfusion today, today's labs have been reviewed, his white count is 23.6, his platelet count is down to 93,000, his neutrophil count is 21.5, a remains lymphopenic as well, and lymphocyte count is 0.48, serum sodium is 131, potassium is 5.0, chloride is 106, CO2 is 15, creatinine is 148, and creatinine of 3.36, serum calcium is 5.9, his last LDH from 12/03/2020 was 1654, and CRP was 0.9, CA urinalysis was sent and there is possibility of urinary tract infection with the large amounts of leukocytes esterase, white blood cells and white blood cells in clumps and many bacteria. Patient was started on cefepime, and Zyvox, ID service is following. Patient was increasingly more acidotic and he was given 1 puff sodium bicarbonates IV push, and was started on D5W with 3 A of bicarbonate at a rate of 50 ML per hour. No nausea vomiting or diarrhea. He received a dose of vancomycin yesterday, and vancomycin is being adjusted per pharmacy. Blood cultures are negative thus far On 12/05/2020 patient seen in follow-up on medical surgical floor. He is breat carla comfortably, he is resting in bed, he continues to require a bear hugger his current temp is currently 96.3 degrees utilizing a temporal artery. No obvious bleeding, patient is passing dark stools, however he also takes iron supplements, and the nurse states his stools are not obviously black and tarry, no hematemesis, abdomen is soft, no hematuria. No altered mentation, he is awake and alert, he is answering questions appropriately, he denies any worsening dyspnea, urine and blood cultures have been sent and are pending at this time, and patient is currently covered with cefepime, and Zyvox. Patient received 2 A of sodium bicarbonate this morning. Today's labs show a white blood cell count of 25.1, hemoglobin of 7.5, sodium is 132, potassium is 5.6, CO2 was 14, BUN was 156, creatinine is 3.49, lactic acid was 2.6, pro-calcitonin level is low at 0.28. Urinalysis suggest possibility of urinary tract infection. On 12/06/2020 patient seen in follow-up on medical surgical floor, he is resting quietly in bed, he still on high flow oxygen, currently at 15 L, his pulse ox is 94%, he states he is tired and sleepy, his hemoglobin is down to 6.1 today and again there is no clear evidence of bleeding, abdomen is soft, no hematemesis, no melena, patient is being transfused with 1 unit of packed red blood cells this morning, his white blood cell count was 20.6, his platelet count is 77, his anticoagulation has been on hold for last 48 hours, his BUN is up to 151, creatinine is 3.61. Plasma lactic acid was 3.1, patient is on antibiotics for possibility of sepsis, likely related to urinary tract infection, his urine culture showing gram-negative bacilli, fungal cultures pending, blood cultures have shown no growth. She remains on Decadron, and he is on cefepime and Zyvox. He received some fluid boluses 500 at 9:00 last night, and another 500 mL fluid bolus in the morning, she remains on D5W with 3 units of bicarbonate at a rate of 50 ML per hour. Nephrology is following. GI service has been consulted and CT of the demented pelvis are pending at this time On 12/07/2020 patient seen in follow-up on medical surgical floor, he is awake and alert, he looks better today, more awake, on today's exam, denies any worsening dyspnea, he is currently on 13 L of oxygen his pulse ox is 93%, his hemoglobin today is 7.6, patient 2 units of packed red blood cells yesterday and 2 units the day prior. His CT of the abdomen showed evidence of fairly moderate to large size left pelvic retroperitoneal hematoma with local mass effect, suggesting subacute possible acute on chronic etiology. Surgery was consulted and recommended conservative treatment. Patient has been off all anticoagulation, in his left leg on today's exam is quite large and swollen and for that reason lower extremity Doppler was obtained revealing acute DVT in the left leg. Resting blood work has been reviewed showing white blood cell count still elevated at 20.04, hemoglobin is 7.6 as mentioned above, platelet count is 66, today's d-dimer is 6.06 resting blood work is still pending. Hematology is following. Patient was also found to be septic, cultures showed Enterococcus faecalis, and patient is on a combination of cefepime and Zyvox, ID service is following. Appetite is poor, but his had no nausea vomiting or diarrhea, he is currently on D5W with 3 A of bicarbonate at a rate of 50 ML per hour. Objective - Vital Signs Vital signs: Vital Signs Temp 95.5 F L 12/07/20 14:00 Pulse 64 12/07/20 14:00 Resp 22 12/07/20 14:00 BP 112/67 12/07/20 14:00 Pulse Ox 90 L 12/07/20 14:00 Intake & Output 12/06/20 12/07/20 12/07/20 18:59 06:59 18:59 Intake Total 620 Output Total 800 850 400 Balance -180 -850 -400 Intake: Blood Product 620 Rc Cpda-1 Unit 310 [id number] Rc Pheresis As-3 Unit 310 [id number] Output: Urine 800 850 400 Other: Voiding Method Indwelling Catheter Indwelling Catheter Indwelling Catheter # Bowel Movements 0 - Exam GENERAL EXAM: 75-year-old white male, pale, currently on 13 L of oxygen pulse ox between 93%, patient is more awake on today's exam, more interactive, appears to be in no acute distress, HEAD: Normocephalic/atraumatic. EYES: Normal reaction of pupils, equal size. Conjunctiva pink, sclera white. NOSE: Clear with pink turbinates. THROAT: No erythema or exudates. NECK: No masses, no JVD, no thyroid enlargement, no adenopathy. CHEST: No chest wall deformity. Symmetrical expansion. LUNGS: Equal air entry with bilateral crackles CVS: Regular rate and rhythm, normal S1 and S2, no gallops, no murmurs, no rubs ABDOMEN: Soft, nontender. No hepatosplenomegaly, normal bowel sounds, no guarding or rigidity. EXTREMITIES: No clubbing, left leg is quite swollen, and tight, with suspicion of DVT no cyanosis, 2+ pulses and upper and lower extremities. MUSCULOSKELETAL: Muscle strength and tone normal. SPINE: No scoliosis or deformity SKIN: No rashes CENTRAL NERVOUS SYSTEM: Alert and oriented -3. No focal deficits, tone is normal in all 4 extremities. - Labs CBC & Chem 7: 12/07/20 06:48 12/06/20 06:16 Labs: Abnormal Lab Results - Last 24 Hours (Table) 12/06/20 12/06/20 12/06/20 Range/Units 13:16 13:16 16:38 WBC (4.50-10.00) X 10*3/uL RBC (4.40-5.60) X 10*6/uL Hgb (13.0-17.0) g/dL Hct (39.6-50.0) % RDW (11.5-14.5) % Plt Count (140-440) X 10*3/uL Plt Count Comment MPV (9.5-12.2) fL Absolute Nucleated RBC (0.00-0.00) X 10*3/uL Immature Gran # (0.00-0.04) X 10*3/uL Neutrophils # (1.80-7.70) X 10*3/uL Lymphocytes # (0.90-5.00) X 10*3/uL Monocytes # (0.20-1.00) X 10*3/uL Eosinophils # (0.04-0.35) X 10*3/uL NRBC/100 WBC Diff (0.0-0.0) /100 WBCS Immature Plt Fraction (1.1-6.1) % Fibrinogen (200-500) mg/dL D-Dimer (<0.60) mg/L FEU POC Glucose (mg/dL) 120 H (75-99) mg/dL TIBC 196 L (228-460) ug/dL % Saturation 51.02 H (15.00-50.00) Ferritin 1622.8 H (22.0-322.0) ng/mL Vitamin B12 1332.0 H (200.0-944.0) pg/mL IgG (700.0-1600.0) mg/dL IgM (40.0-280.0) mg/dL Crossmatch See Detail 12/07/20 12/07/20 12/07/20 Range/Units 06:48 06:48 06:48 WBC 20.04 H (4.50-10.00) X 10*3/uL RBC 2.39 L (4.40-5.60) X 10*6/uL Hgb 7.6 L (13.0-17.0) g/dL Hct 22.3 L (39.6-50.0) % RDW 16.2 H (11.5-14.5) % Plt Count 66 L (140-440) X 10*3/uL Plt Count Comment DECREASED A MPV 12.4 H (9.5-12.2) fL Absolute Nucleated RBC 0.05 H (0.00-0.00) X 10*3/uL Immature Gran # 0.22 H (0.00-0.04) X 10*3/uL Neutrophils # 18.34 H (1.80-7.70) X 10*3/uL Lymphocytes # 0.44 L (0.90-5.00) X 10*3/uL Monocytes # 1.02 H (0.20-1.00) X 10*3/uL Eosinophils # 0 L (0.04-0.35) X 10*3/uL NRBC/100 WBC Diff 0.2 H (0.0-0.0) /100 WBCS Immature Plt Fraction 8.2 H (1.1-6.1) % Fibrinogen 188 L (200-500) mg/dL D-Dimer 6.06 H (<0.60) mg/L FEU POC Glucose (mg/dL) (75-99) mg/dL TIBC (228-460) ug/dL % Saturation (15.00-50.00) Ferritin (22.0-322.0) ng/mL Vitamin B12 (200.0-944.0) pg/mL IgG 458.0 L (700.0-1600.0) mg/dL IgM 22.6 L (40.0-280.0) mg/dL Crossmatch 12/07/20 12/07/20 Range/Units 06:58 11:20 WBC (4.50-10.00) X 10*3/uL RBC (4.40-5.60) X 10*6/uL Hgb (13.0-17.0) g/dL Hct (39.6-50.0) % RDW (11.5-14.5) % Plt Count (140-440) X 10*3/uL Plt Count Comment MPV (9.5-12.2) fL Absolute Nucleated RBC (0.00-0.00) X 10*3/uL Immature Gran # (0.00-0.04) X 10*3/uL Neutrophils # (1.80-7.70) X 10*3/uL Lymphocytes # (0.90-5.00) X 10*3/uL Monocytes # (0.20-1.00) X 10*3/uL Eosinophils # (0.04-0.35) X 10*3/uL NRBC/100 WBC Diff (0.0-0.0) /100 WBCS Immature Plt Fraction (1.1-6.1) % Fibrinogen (200-500) mg/dL D-Dimer (<0.60) mg/L FEU POC Glucose (mg/dL) 114 H 160 H (75-99) mg/dL TIBC (228-460) ug/dL % Saturation (15.00-50.00) Ferritin (22.0-322.0) ng/mL Vitamin B12 (200.0-944.0) pg/mL IgG (700.0-1600.0) mg/dL IgM (40.0-280.0) mg/dL Crossmatch Microbiology - Last 24 Hours (Table) 12/03/20 13:07 Blood Culture - Preliminary Blood No Growth after 96 hours 12/05/20 02:27 Blood Culture - Preliminary Blood No Growth after 48 hours 12/04/20 14:45 Urine Culture - Preliminary Urine,Voided Gram Neg Bacilli Enterococcus faecalis Assessment and Plan Plan: Assessment: #1. acute COVID 19 related pneumonia with secondary shortness of breath and hypoxic respiratory failure the patient's symptoms of generalized weakness and dehydration, currently on 4 L of oxygen by nasal cannula, patient was started on Remdesivir on 11/20/2020, Toci on 11/29/2020 #2. acute hypoxic respiratory failure #3. Acute blood loss anemia, related to large retroperitoneal hematoma #4. Acute urinary tract infection with sepsis, related to enterococcus faecalis, and another gram-negative organism final culture is pending #5. Hypothermia possibly related to sepsis, improved #6. Coronary artery disease with previous positive bypass surgery #7. Mild troponin leak, could be related to Covid 19 infection #8. History of AICD placement #9. Hypothyroidism #10. Diabetes mellitus with diabetic retinopathy #11. 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 Gout #13. Anemia of chronic disease #14. Hypothyroidism #15. Acute kidney injury #16. Acute left lower extremity DVT, and patient has a recent history of retroperitoneal bleeding, we'll consult vascular surgery for placement of [place] filter Plan: Consult vascular surgery for placement of [place] filter Antibiotics per ID service recommendations Continue current dose dexamethasone Overall prognosis is guarded and poor Clarify CODE STATUS with patient's family Continue to follow I performed a history & physical examination of the patient and discussed their management with my nurse practitioner, Iza Mccarthy. I reviewed the nurse practitioner's note and agree with the documented findings and plan of care. Lung sounds are positive for bibasilar crackles. The findings and the impression was discussed with the patient. I attest to the documentation by the nurse practitioner. Time with Patient: Less than 30
[2020-12-07 16:22] LABS: Glucose,Whole Blood 160 mg/dL (75-99)
--- NOTE | 2020-12-07 16:56 | P.GSCN ---
History of Present Illness Consult date: 12/07/20 Reason for Consult: Deep venous thrombosis left femoral vein with a contraindication to anticoagulation (retroperitoneal hematoma on anticoagulation). History of present illness: Patient is a 75-year-old male who was admitted for coated and pneumonia related medical issues. He was found to be suffering from deep venous thrombosis of the left femoral vein and was placed on IV heparin. Over the past few days a progressive drop in hemoglobin has been documented. In workup for this the patient did undergo computed tomography scan of the abdominal / pelvic cavity which demonstrated a relatively large retroperitoneal hematoma. The antico agulation was stopped and consultation for IVC filter placement was requested. Past Medical History Past Medical History: Coronary Artery Disease (CAD), Diabetes Mellitus, Eye Disorder, Renal Disease, Thyroid Disorder Additional Past Medical History / Comment(s): SEE DR KENNY H&P, ANEMIA, HX GOUT, NEUROPATHY ALEX HANDS AND FEET, DIABETIC RETINOPATHY, GET INJECTIONS IN EYES, stage 4 KIDNEY DISEASE per spouse History of Any Multi-Drug Resistant Organisms: None Reported Past Surgical History: AICD, Coronary Bypass/CABG Additional Past Surgical History / Comment(s): ALEX CATARACTS, CABG X4 Past Anesthesia/Blood Transfusion Reactions: No Reported Reaction Type of Cardiac Device: AICD Device Placement Date:: 11/20/17 [facility] Past Psychological History: No Psychological Hx Reported Smoking Status: Never smoker Past Alcohol Use History: None Reported Past Drug Use History: None Reported - Past Family History Father Family Medical History: Cancer Brother(s) Family Medical History: Cancer Medications and Allergies Home Medications Medication Instructions Recorded Confirmed Type Aspirin EC [Ecotrin Low Dose] 81 mg PO BID 11/29/16 11/19/20 History Carvedilol [Coreg] 18.75 mg PO BID@1200,1800 11/29/16 11/19/20 History Ferrous Sulfate [Iron (65 MG 325 mg PO BID@1200,1800 11/29/16 11/19/20 History Elemental)] Levothyroxine Sodium [Synthroid] 100 mcg PO AC-BRKFST 11/29/16 11/19/20 History allopurinoL [Zyloprim] 100 mg PO W/SUPPER 11/29/16 11/19/20 History calcitrioL [Rocaltrol] 0.25 mcg PO WE 11/29/16 11/19/20 History Repaglinide [Prandin] 0.25 mg PO AC-BID 06/09/18 11/19/20 History Spironolactone 12.5 mg PO DAILY@1200 06/09/18 11/19/20 History Atorvastatin Calcium [Lipitor] 40 mg PO HS 11/19/20 11/19/20 History Epoetin Rizwan-Epbx [Retacrit] 4,000 units SQ Q21D 11/19/20 11/19/20 History Ergocalciferol (Vitamin D2) 1,250 mcg PO QMONTHLY 11/19/20 11/19/20 History [Vitamin D2 (50,000 Iu)] Allergies Allergy/AdvReac Type Severity Reaction Status Date / Time No Known Allergies Allergy Verified 11/19/20 08:10 Surgical - Exam Osteopathic Statement: *. No significant issues noted on an osteopathic structural exam other than those noted in the History and Physical/Consult. Vital Signs Temp Pulse Resp BP Pulse Ox 99.2 F 60 18 145/66 98 11/18/20 22:05 11/18/20 22:05 11/18/20 22:05 11/18/20 22:05 11/18/20 22:05 Results - Labs 12/07/20 06:48 12/06/20 06:16 Abnormal Lab Results - Last 24 Hours (Table) 12/06/20 12/06/20 12/07/20 Range/Units 13:16 13:16 06:48 WBC (4.50-10.00) X 10*3/uL RBC (4.40-5.60) X 10*6/uL Hgb (13.0-17.0) g/dL Hct (39.6-50.0) % RDW (11.5-14.5) % Plt Count (140-440) X 10*3/uL Plt Count Comment MPV (9.5-12.2) fL Absolute Nucleated RBC (0.00-0.00) X 10*3/uL Immature Gran # (0.00-0.04) X 10*3/uL Neutrophils # (1.80-7.70) X 10*3/uL Lymphocytes # (0.90-5.00) X 10*3/uL Monocytes # (0.20-1.00) X 10*3/uL Eosinophils # (0.04-0.35) X 10*3/uL NRBC/100 WBC Diff (0.0-0.0) /100 WBCS Immature Plt Fraction (1.1-6.1) % Fibrinogen (200-500) mg/dL D-Dimer (<0.60) mg/L FEU POC Glucose (mg/dL) (75-99) mg/dL TIBC 196 L (228-460) ug/dL % Saturation 51.02 H (15.00-50.00) Ferritin 1622.8 H (22.0-322.0) ng/mL Vitamin B12 1332.0 H (200.0-944.0) pg/mL IgG 458.0 L (700.0-1600.0) mg/dL IgM 22.6 L (40.0-280.0) mg/dL Crossmatch See Detail 12/07/20 12/07/20 12/07/20 Range/Units 06:48 06:48 06:58 WBC 20.04 H (4.50-10.00) X 10*3/uL RBC 2.39 L (4.40-5.60) X 10*6/uL Hgb 7.6 L (13.0-17.0) g/dL Hct 22.3 L (39.6-50.0) % RDW 16.2 H (11.5-14.5) % Plt Count 66 L (140-440) X 10*3/uL Plt Count Comment DECREASED A MPV 12.4 H (9.5-12.2) fL Absolute Nucleated RBC 0.05 H (0.00-0.00) X 10*3/uL Immature Gran # 0.22 H (0.00-0.04) X 10*3/uL Neutrophils # 18.34 H (1.80-7.70) X 10*3/uL Lymphocytes # 0.44 L (0.90-5.00) X 10*3/uL Monocytes # 1.02 H (0.20-1.00) X 10*3/uL Eosinophils # 0 L (0.04-0.35) X 10*3/uL NRBC/100 WBC Diff 0.2 H (0.0-0.0) /100 WBCS Immature Plt Fraction 8.2 H (1.1-6.1) % Fibrinogen 188 L (200-500) mg/dL D-Dimer 6.06 H (<0.60) mg/L FEU POC Glucose (mg/dL) 114 H (75-99) mg/dL TIBC (228-460) ug/dL % Saturation (15.00-50.00) Ferritin (22.0-322.0) ng/mL Vitamin B12 (200.0-944.0) pg/mL IgG (700.0-1600.0) mg/dL IgM (40.0-280.0) mg/dL Crossmatch 12/07/20 12/07/20 Range/Units 11:20 16:21 WBC (4.50-10.00) X 10*3/uL RBC (4.40-5.60) X 10*6/uL Hgb (13.0-17.0) g/dL Hct (39.6-50.0) % RDW (11.5-14.5) % Plt Count (140-440) X 10*3/uL Plt Count Comment MPV (9.5-12.2) fL Absolute Nucleated RBC (0.00-0.00) X 10*3/uL Immature Gran # (0.00-0.04) X 10*3/uL Neutrophils # (1.80-7.70) X 10*3/uL Lymphocytes # (0.90-5.00) X 10*3/uL Monocytes # (0.20-1.00) X 10*3/uL Eosinophils # (0.04-0.35) X 10*3/uL NRBC/100 WBC Diff (0.0-0.0) /100 WBCS Immature Plt Fraction (1.1-6.1) % Fibrinogen (200-500) mg/dL D-Dimer (<0.60) mg/L FEU POC Glucose (mg/dL) 160 H 160 H (75-99) mg/dL TIBC (228-460) ug/dL % Saturation (15.00-50.00) Ferritin (22.0-322.0) ng/mL Vitamin B12 (200.0-944.0) pg/mL IgG (700.0-1600.0) mg/dL IgM (40.0-280.0) mg/dL Crossmatch Microbiology - Last 24 Hours (Table) 12/03/20 13:07 Blood Culture - Preliminary Blood No Growth after 96 hours 12/05/20 02:27 Blood Culture - Preliminary Blood No Growth after 48 hours 12/04/20 14:45 Urine Culture - Preliminary Urine,Voided Gram Neg Bacilli Enterococcus faecalis Assessment and Plan Assessment: #1: Deep venous thrombosis left femoral vein with a contraindication anticoagulation (retroperitoneal hematoma). #2: Blood loss anemia secondary to retroperitoneal hematoma currently being transfused (1) Retroperitoneal hematoma Current Visit: Yes Status: Acute Code(s): K66.1 - HEMOPERITONEUM SNOMED Code(s): 451111249 Plan: #1: We'll plan to place IVC filter 12/08/2020. Time with Patient: Less than 30
[2020-12-07] MEDS: allopurinoL 100 MG TAB PO SCH (17:13)
--- NOTE | 2020-12-07 20:10 | PN ---
PROGRESS NOTE DATE OF SERVICE: 12/07/2020 REASON FOR FOLLOWUP: Pneumonia. INTERVAL HISTORY: The patient is currently afebrile. The patient is feeling better today. He is breathing more comfortably. Denies having any chest pain or shortness of breath or worsening cough. No abdominal pain or diarrhea. PHYSICAL EXAMINATION: Blood pressure 123/73 with a pulse of 64, temperature 95.5. He is 92% on 15 L high- flow oxygen. General description is an elderly male lying in bed in no distress. RESPIRATORY SYSTEM: Unlabored breathing. Clear to auscultation anteriorly. HEART: S1, S2. Regular rate and rhythm. ABDOMEN: Soft. No tenderness. No guarding or rigidity. EXTREMITIES: No edema of the feet. LABS: Hemoglobin 7.6, white count 20.04. DIAGNOSTIC IMPRESSION AND PLAN: Patient with an episode of sepsis, concern for pneumonia. Urine is positive for Gram- negative Enterococcus faecalis. Patient is currently covered with cefepime and Zyvox; to continue in view of clinical response and monitor his clinical course closely. Continue supportive care. MMODL / IJN: [id number] /
[2020-12-07 20:18] LABS: Glucose,Whole Blood 211 mg/dL (75-99)
[2020-12-07] MEDS: LINEZOLID 600 MG TAB PO SCH (20:43)
[2020-12-07] MEDS: TAMSULOSIN 0.4 MG CAP.ER.24H PO SCH (20:43)
[2020-12-07] MEDS: ATORVASTATIN 40 MG TAB PO SCH (20:43)
[2020-12-07 21:03] LABS: Anion Gap 16.6 mmol/L (4.00-12.00); BUN/Creat Ratio 48.13 Ratio (12.00-20.00); Calcium 6.1 mg/dL (8.7-10.3); Carbon Dioxide 20.4 mmol/L (21.6-31.8); Magnesium 2.1 mg/dL (1.5-2.4); Potassium 4.7 mmol/L (3.5-5.5)
[2020-12-07 21:32] LABS: Non-African American GFR(CKD) 18.1 (60.0-200.0)
--- NOTE | 2020-12-07 21:45 | P.PN ---
Progress Note - Text Progress Note Date: 12/07/20 Chief Complaint: Tired History of presenting complaint: Pleasant 75-year-old patient of Dr. Horta. Chronic stable medical conditions include diabetes, hypothyroid, gout, peripheral neuropathy, diabetic retinopathy, chronic kidney disease, coronary artery disease with a history of bypass and AICD. Patient's is by the bedside who provides most of the history. Patient about 7 days ago on Friday every couple of days before that has started feeling a little bit tired. Motor worse on Friday. Also developed a fever. Decreased appetite diet. Had some diarrhea. Body aches. No loss of smell or taste. Patient did have COVID rapid tested on that was negative. Now becomes short of breath with minimal exertion tired rundown. Patient is tested positive for COVID 19. Initial pulse ox on room air was 98% and then did go down to 94% on 2 L. Admitted with acute bilateral COVID 19 pneumonitis, acute hypoxic respiratory failure, acute myocarditis. Placed on dexamethasone Lovenox. IV Remdesivir. Patient is requiring high flow oxygen. Patient dropped his hemoglobin on the . Receive 2 units of blood. Patient's front of her retroperitoneal bleed. Received a total of 4 units of blood. Today: Remains on 15 L high flow nasal cannula. Feeling a bit better. Diet. Did eat a little bit. Review of systems: Was done for constitutional, cardiovascular, GI, pulmonary. relevant finding as above Active Medications Acetaminophen (Acetaminophen Tab 325 Mg Tab) 650 mg PO Q6HR PRN PRN Reason: Fever and/ or Pain Last Admin: 12/06/20 20:49 Dose: 650 mg Documented by: Allopurinol (Allopurinol 100 Mg Tab) 100 mg PO W/SUPPER [facility] Last Admin: 12/07/20 17:13 Dose: 100 mg Documented by: Alprazolam (Alprazolam 0.25 Mg Tab) 0.25 mg PO Q8HR PRN PRN Reason: Anxiety Last Admin: 12/06/20 20:49 Dose: 0.25 mg Documented by: Ascorbic Acid (Ascorbic Acid 500 Mg Tab) 500 mg PO BID [facility] Last Admin: 12/07/20 20:42 Dose: 500 mg Documented by: Atorvastatin Calcium (Atorvastatin 40 Mg Tab) 40 mg PO HS [facility] Last Admin: 12/07/20 20:43 Dose: 40 mg Documented by: Carvedilol (Carvedilol 6.25 Mg Tab) 6.25 mg PO BID-W/MEALS [facility] Last Admin: 12/07/20 17:12 Dose: Not Given Documented by: Cholecalciferol (Cholecalciferol 25 Mcg (1000 Iu) Tablet) 100 mcg PO DAILY [facility] Last Admin: 12/07/20 07:25 Dose: 100 mcg Documented by: Darbepoetin Rizwan (Darbepoetin Rizwan 40 Mcg/0.4 Ml Syringe) 40 mcg SQ Q7D [facility] Last Admin: 12/05/20 11:29 Dose: 40 mcg Documented by: Dexamethasone Sodium Phosphate (Dexamethasone Sod Phosphate 10 Mg/Ml 1 Ml Vial) 6 mg IV DAILY [facility] Last Admin: 12/07/20 07:29 Dose: 6 mg Documented by: Famotidine (Famotidine 20 Mg Tab) 20 mg PO DAILY [facility] Last Admin: 12/07/20 07:26 Dose: 20 mg Documented by: Ferrous Sulfate (Ferrous Sulfate 325 Mg Tab) 325 mg PO BID@1200,1800 [facility] Last Admin: 12/07/20 17:13 Dose: 325 mg Documented by: Cefepime HCl 1 gm/ Sodium (Chloride) 50 mls @ 12.5 mls/hr IVPB Q12HR [facility] Last Admin: 12/07/20 20:42 Dose: 12.5 mls/hr Documented by: Sodium Bicarbonate 150 ml/ (Dextrose/Water) 1,150 mls @ 50 mls/hr IV .Q23H [facility] Last Admin: 12/07/20 11:30 Dose: 50 mls/hr Documented by: Insulin Aspart (Insulin Aspart (Novolog) 100 Unit/Ml Vial) [address] [facility]; Protocol Last Admin: 12/07/20 20:43 Dose: 3 unit Documented by: Insulin Detemir (Insulin Detemir (Levemir) 100 Unit/Ml Syr) 35 unit SQ DAILY@0700 [facility] Last Admin: 12/07/20 07:29 Dose: 35 unit Documented by: Insulin Detemir (Insulin Detemir (Levemir) 100 Unit/Ml Syr) 35 unit SQ HS [facility] Last Admin: 12/07/20 20:44 Dose: 35 unit Documented by: Levothyroxine Sodium (Levothyroxine 100 Mcg Tab) 100 mcg PO 0630 [facility] Last Admin: 12/07/20 05:22 Dose: 100 mcg Documented by: Linezolid (Linezolid 600 Mg Tab) 600 mg PO Q12HR [facility] Last Admin: 12/07/20 20:43 Dose: 600 mg Documented by: Naloxone HCl (Naloxone 0.4 Mg/Ml 1 Ml Vial) 0.2 mg IV Q2M PRN PRN Reason: Opioid Reversal Pantoprazole Sodium (Pantoprazole 40 Mg/10 Ml Vial) 40 mg IVP BID [facility] Last Admin: 12/07/20 20:43 Dose: 40 mg Documented by: Repaglinide (Repaglinide 1 Mg Tab) 0.25 mg PO AC-BID [facility] Last Admin: 12/07/20 17:13 Dose: 0.25 mg Documented by: Tamsulosin HCl (Tamsulosin 0.4 Mg Cap.Er.24h) 0.4 mg PO HS [facility] Last Admin: 12/07/20 20:43 Dose: 0.4 mg Documented by: Zinc Sulfate (Zinc Sulfate 220 Mg Cap) 220 mg PO DAILY [facility] Last Admin: 12/07/20 07:26 Dose: 220 mg Documented by: Past medical history to include: Diabetes, hypothyroid, gout, diabetic peripheral neuropathy, diabetic retinopathy, chronic kidney disease stage IV, coronary artery disease with bypass, AICD Social history: No history of smoking or alcohol. . 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 PSYCH: [Alert and oriented x3; mood and affect tired NEUROLOGICAL: Cranial nerves grossly intact; no facial asymmetry, moving all 4 l imbs Rest of exam per pulmonary and nursing INVESTIGATIONS, reviewed in the clinical context: Ultrasound Doppler lower extremity bilateral: Acute DVT in the left lower extremity with hyperexpanded material filling the lumen and absent color flow begins in the superficial femoral vein and more prominent findings in the mid and distal sebaceous femoral vein. December 07: WBC 20.04 hemoglobin 7.6 platelets 66 potassium 4.7 creatinine 3.2 bun 154 calcium 6.1 phosphorus 8 Computed tomography scan of abdomen and pelvis: Fairly moderate to large size pelvic retroperitoneal hematoma with local mass effect. Mild cortical thinning in both the kidneys. November 28: WBC 20.6 hemoglobin 6.1 platelets 77 potassium 5 BUN 151 creatinine 3.61 lactic acid 3.1 calcium 5.8 November 27: WBC 5.4 hemoglobin 9.3 potassium 4.8 creatinine 2.2 LDH 687 CRP 1.2 November 21: Potassium 4.8 creatinine 2.7 2-D echocardiogram: EF 50-55% November 20 Potassium 5.1 creatinine 2.85 d-dimer 0.47 CRP 70 WBC 3.2 hemoglobin 9.7 platelets 164 lymphocytes 0.5 sodium 131 potassium 4.8 bun 61 creatinine 3.37 Troponin I 0.073, 0.073, 0.068 albumin 3.2 Urine protein 2+ moderate blood Coronavirus [PCR] detected EKG tracing personally reviewed by me-normal sinus rhythm Chest x-ray film personally reviewed by me-bilateral infiltrates Renal ultrasound-normal Assessment and plan: -Acute bilateral COVID 19 pneumonia. Symptoms started about a week before presentation.-Slow to respond on IV dexamethasone, subcu Lovenox-held, vitamin C vitamin D Pepcid and zinc. November 20 - Remdesivir -Acute hypoxic respiratory failure, secondary to COVID 19 pneumonia: -Not improving Oxygen - 13 L -Acute myocarditis secondary to COVID 19 Telemetry. watch for arrhythmias. -Acute kidney injury likely ATN from sepsis from COVID 19, hypertension. Improved with IV fluids. -Chronic kidney disease stage IV secondary to diabetic kidney disease. Creatinine 2.17 August 2020 Follow renal function -AICD On telemetry -Coronary artery disease with prior history of carotid bypass Continue with Coreg, Lipitor, aspirin -Hypothyroid Continue with Synthroid -Diabetes mellitus type 2, on oral hypoglycemic, uncontrolled with hyperglycemia Follow Accu-Cheks with sliding scale insulin. Increase Levemir to 28 units at night -Chronic gout Continue with allopurinol -Anemia of chronic kidney disease Follow H&H and continue with erythropoietin -Diabetic retinopathy Follow clinically -Diabetic peripheral neuropathy Follow clinically -Hyponatremia from a relative decrease in solute from decreased appetite- improving Saline IV -Metabolic acidosis due to chronic kidney disease Supplement bicarb -Acute retroperitoneal bleed likely from patient being on Lovenox Lovenox has been on hold. 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 Patient not a candidate for anticoagulation. Patient to be evaluated for [place] filter -Hyperphosphatemia due to acute on chronic kidney disease Possible Ketty filter placement tomorrow by vascular. Prognosis guarded. Continue other medications.
[2020-12-08] MEDS ORDERED: CALCIUM GLUCONATE 1 GM in SODIUM CHLORIDE 0.9% 100 ML IVPB ONE ×2 (02:00→16:57)
[2020-12-08] MEDS: ALPRAZolam 0.25 MG TAB PO PRN (05:29)
[2020-12-08] MEDS: LEVOTHYROXINE 100 MCG TAB PO SCH (05:29)
[2020-12-08 07:01] LABS: Glucose,Whole Blood 100 mg/dL (75-99)
[2020-12-08 07:52] LABS: INR 1.1 (<1.2); Partial Thromboplastin Time 22.7 sec (22.0-30.0); Prothrombin Time 11.7 sec (9.0-12.0)
--- NOTE | 2020-12-08 09:06 | XR ---
EXAMINATION TYPE: XR chest 1V portable DATE OF EXAM: 12/08/2020 COMPARISON: 12/04/2020 HISTORY: Shortness of breath TECHNIQUE: Single frontal view of the chest is obtained. FINDINGS: Postsurgical changes are seen with bilateral infiltrate and pleural effusion. Cardiac greta ce noted. Limited inspiration. No sizable pneumothorax. Diffuse interstitial pattern seen. IMPRESSION: Stable diffuse interstitial and alveolar infiltrates correlate for CHF versus pneumonia.
[2020-12-08] MEDS: INSULIN DETEMIR (LEVEMIR) 100 UNIT/ML SYR SQ SCH ×2 (09:58→21:19)
[2020-12-08] MEDS: INSULIN ASPART (NovoLOG) 100 UNIT/ML VIAL SQ SCH ×4 (09:59→21:18)
[2020-12-08] MEDS: carvediloL 6.25 MG TAB PO SCH ×2 (09:59→16:34)
[2020-12-08] MEDS: LINEZOLID 600 MG TAB PO SCH ×2 (10:00→21:19)
[2020-12-08] MEDS: CHOLECALCIFEROL 25 MCG (1000 IU) TABLET PO SCH (10:00)
[2020-12-08] MEDS: FAMOTIDINE 20 MG TAB PO SCH (10:00)
[2020-12-08] MEDS: ASCORBIC ACID 500 MG TAB PO SCH ×2 (10:01→21:18)
[2020-12-08] MEDS: REPAGLINIDE 1 MG TAB PO SCH ×2 (10:01→16:34)
[2020-12-08] MEDS: PANTOPRAZOLE 40 MG/10 ML VIAL IVP SCH ×2 (10:02→23:13)
[2020-12-08] MEDS: DEXAMETHASONE SOD PHOSPHATE 10 MG/ML 1 ML VIAL IV SCH (10:02)
[2020-12-08] MEDS: CEFEPIME 1 GM in SODIUM CHLORIDE 0.9% 50 ML IVPB SCH ×2 (10:02→23:13)
[2020-12-08] MEDS: ZINC SULFATE 220 MG CAP PO SCH (10:03)
--- NOTE | 2020-12-08 10:48 | P.PN ---
Subjective Progress Note Date: 12/08/20 Principal diagnosis: COVIV and Bicytopenia Continued gradual decrease in platelets, awaiting CBC from today. Vascular has seen patient for fem DVT and possible IVC placement Objective - Vital Signs Vital signs: Vital Signs Temp 97.5 F L 12/08/20 09:49 Pulse 83 12/08/20 09:49 Resp 20 12/08/20 09:49 BP 121/65 12/08/20 09:49 Pulse Ox 91 L 12/08/20 09:49 Intake & Output 12/07/20 12/08/20 12/08/20 18:59 06:59 18:59 Output Total 400 Balance -400 Output: Urine 400 Other: Voiding Method Indwelling Catheter Indwelling Catheter - Exam HIgh FLow Increased effort - Constitutional General appearance: cooperative, no acute distress - EENT Eyes: EOMI ENT: NA/AT - Neck Neck: normal ROM - Respiratory Respiratory: bilateral: diminished - Cardiovascular Rhythm: regular - Gastrointestinal General gastrointestinal: soft - Integumentary Integumentary: normal - Musculoskeletal Musculoskeletal: generalized weakness - Labs CBC & Chem 7: 12/08/20 06:35 12/08/20 06:35 Labs: Abnormal Lab Results - Last 24 Hours (Table) 12/07/20 12/07/20 12/07/20 Range/Units 06:48 06:48 06:48 WBC 20.04 H (4.50-10.00) X 10*3/uL RBC 2.39 L (4.40-5.60) X 10*6/uL Hgb 7.6 L (13.0-17.0) g/dL Hct 22.3 L (39.6-50.0) % RDW 16.2 H (11.5-14.5) % Plt Count 66 L (140-440) X 10*3/uL Plt Count Comment DECREASED A MPV 12.4 H (9.5-12.2) fL Absolute Nucleated RBC 0.05 H (0.00-0.00) X 10*3/uL Immature Gran # 0.22 H (0.00-0.04) X 10*3/uL Neutrophils # 18.34 H (1.80-7.70) X 10*3/uL Lymphocytes # 0.44 L (0.90-5.00) X 10*3/uL Monocytes # 1.02 H (0.20-1.00) X 10*3/uL Eosinophils # 0 L (0.04-0.35) X 10*3/uL NRBC/100 WBC Diff 0.2 H (0.0-0.0) /100 WBCS Immature Plt Fraction 8.2 H (1.1-6.1) % Fibrinogen (200-500) mg/dL Carbon Dioxide (21.6-31.8) mmol/L Anion Gap (4.00-12.00) mmol/L BUN (9.0-27.0) mg/dL Creatinine (0.6-1.5) mg/dL Est GFR (CKD-EPI)AfAm (60.0-200.0) Est GFR (CKD-EPI)NonAf (60.0-200.0) BUN/Creatinine Ratio (12.00-20.00) Ratio POC Glucose (mg/dL) (75-99) mg/dL Calcium (8.7-10.3) mg/dL Phosphorus (2.4-5.1) mg/dL Lactate Dehydrogenase (120-246) U/L Total Protein (PEP) 4.0 L (6.2-8.2) g/dL IgG 458.0 L (700.0-1600.0) mg/dL IgM 22.6 L (40.0-280.0) mg/dL 12/07/20 12/07/20 12/07/20 Range/Units 06:48 11:20 16:21 WBC (4.50-10.00) X 10*3/uL RBC (4.40-5.60) X 10*6/uL Hgb (13.0-17.0) g/dL Hct (39.6-50.0) % RDW (11.5-14.5) % Plt Count (140-440) X 10*3/uL Plt Count Comment MPV (9.5-12.2) fL Absolute Nucleated RBC (0.00-0.00) X 10*3/uL Immature Gran # (0.00-0.04) X 10*3/uL Neutrophils # (1.80-7.70) X 10*3/uL Lymphocytes # (0.90-5.00) X 10*3/uL Monocytes # (0.20-1.00) X 10*3/uL Eosinophils # (0.04-0.35) X 10*3/uL NRBC/100 WBC Diff (0.0-0.0) /100 WBCS Immature Plt Fraction (1.1-6.1) % Fibrinogen (200-500) mg/dL Carbon Dioxide 20.4 L (21.6-31.8) mmol/L Anion Gap 16.60 H (4.00-12.00) mmol/L BUN 154.0 H* (9.0-27.0) mg/dL Creatinine 3.2 H (0.6-1.5) mg/dL Est GFR (CKD-EPI)AfAm 21.0 L (60.0-200.0) Est GFR (CKD-EPI)NonAf 18.1 L (60.0-200.0) BUN/Creatinine Ratio 48.13 H (12.00-20.00) Ratio POC Glucose (mg/dL) 160 H 160 H (75-99) mg/dL Calcium 6.1 L* (8.7-10.3) mg/dL Phosphorus 8.0 H (2.4-5.1) mg/dL Lactate Dehydrogenase 971 H (120-246) U/L Total Protein (PEP) (6.2-8.2) g/dL IgG (700.0-1600.0) mg/dL IgM (40.0-280.0) mg/dL 12/07/20 12/08/20 12/08/20 Range/Units 20:16 06:35 06:58 WBC (4.50-10.00) X 10*3/uL RBC (4.40-5.60) X 10*6/uL Hgb (13.0-17.0) g/dL Hct (39.6-50.0) % RDW (11.5-14.5) % Plt Count (140-440) X 10*3/uL Plt Count Comment MPV (9.5-12.2) fL Absolute Nucleated RBC (0.00-0.00) X 10*3/uL Immature Gran # (0.00-0.04) X 10*3/uL Neutrophils # (1.80-7.70) X 10*3/uL Lymphocytes # (0.90-5.00) X 10*3/uL Monocytes # (0.20-1.00) X 10*3/uL Eosinophils # (0.04-0.35) X 10*3/uL NRBC/100 WBC Diff (0.0-0.0) /100 WBCS Immature Plt Fraction (1.1-6.1) % Fibrinogen 174 L (200-500) mg/dL Carbon Dioxide (21.6-31.8) mmol/L Anion Gap (4.00-12.00) mmol/L BUN (9.0-27.0) mg/dL Creatinine (0.6-1.5) mg/dL Est GFR (CKD-EPI)AfAm (60.0-200.0) Est GFR (CKD-EPI)NonAf (60.0-200.0) BUN/Creatinine Ratio (12.00-20.00) Ratio POC Glucose (mg/dL) 211 H 100 H (75-99) mg/dL Calcium (8.7-10.3) mg/dL Phosphorus (2.4-5.1) mg/dL Lactate Dehydrogenase (120-246) U/L Total Protein (PEP) (6.2-8.2) g/dL IgG (700.0-1600.0) mg/dL IgM (40.0-280.0) mg/dL Microbiology - Last 24 Hours (Table) 12/05/20 02:27 Blood Culture - Preliminary Blood No Growth after 72 hours 12/04/20 14:45 Urine Culture - Final Urine,Voided Escherichia coli Enterococcus faecalis 12/03/20 13:07 Blood Culture - Preliminary Blood No Growth after 96 hours Assessment and Plan (1) Thrombocytopenia Current Visit: Yes Status: Acute Code(s): D69.6 - THROMBOCYTOPENIA, UNSPECIFIED SNOMED Code(s): 302311219 (2) Acute on chronic renal failure Current Visit: Yes Status: Acute Code(s): N17.9 - ACUTE KIDNEY FAILURE, UN SPECIFIED; N18.9 - CHRONIC KIDNEY DISEASE, UNSPECIFIED SNOMED Code(s): 23 5371613 (3) COVID-19 Current Visit: Yes Status: Acute Code(s): U07.1 - COVID-19 SNOMED Code(s): 253787538 (4) Normocytic normochromic anemia Current Visit: Yes Status: Acute Code(s): D64.9 - ANEMIA, UNSPECIFIED SNOMED Code(s): 68430308 (5) DVT (deep venous thrombosis) Current Visit: Yes Status: Acute Code(s): I82.409 - ACUTE EMBOLISM AND THOMBOS UNSP DEEP VN UNSP LOWER EXTREMITY SNOMED Code(s): 404378708 Plan: Assessment and Recommendations: DVT Left Femoral: - Anticoagulation on hold due to bleeding and gradual decrease in platelets - Vascular has seen and evaluated patient for possible IVC - Awaiting HIT antibodies, still pending Bicytopenia: - Likely Multifactorial: Secondary to bone marrow supression with prolonged illness, assess for DIC, Assess for Bleeding (CT ordered), HIT antibodies in process - Transfuse PRBC hemoglon less than 7 - Platelets less 15, or less than 40K if s/s bleeding - AC should be ok to resume if no active bleeding is found and hemoglobin starts to stabilize Moderated Retroperitoneal Bleed; - CT Abdomen reveal underlying hematoma - Mass effect, etiology of blood loss and/or contributing factor Platelets do continue to trend down, Fibrinogen decreased, however in safe range, will monitor daily for now. Await HIT antibodies before using heparin based AC until this has resulted VQ for Assess PE Physician Attest: I have completed full history and physical developed above impression and plan, agree with dictation, dictated as a scribe
[2020-12-08 11:25] LABS: Glucose,Whole Blood 59 mg/dL (75-99)
[2020-12-08] MEDS: DEXTROSE 50% SYRINGE 50 ML IVP STA (11:43)
[2020-12-08 11:52] LABS: Glucose,Whole Blood 63 mg/dL (75-99)
[2020-12-08 11:52] LABS: Glucose,Whole Blood 409 mg/dL (75-99)
--- NOTE | 2020-12-08 12:03 | P.PN ---
<Namrata Odell - Last Filed: 12/08/20 11:54> Subjective Progress Note Date: 12/08/20 CHIEF COMPLAINT: COVID-19 pneumonia HISTORY OF PRESENT ILLNESS: Surgical service is following in regards to patient's retroperitoneal hematoma. Patient denies any abdominal pain. Denies any back pain. Patient did receive Aranesp and DDAVP x 2. He also received a total of 4 units of blood during this admission. Patient is scheduled for IVC filter today because he has a left leg DVT and cannot be on anticoagulation. Patient's respiratory status has worsened. He is on Airvo plus non-rebreather and satting at 91%. PHYSICAL EXAM: VITAL SIGNS: Reviewed GENERAL: Well-developed in no acute distress. HEENT: No sclera icterus. Extraocular movements grossly intact. Moist buccal mucosa. Head is atraumatic, normocephalic. Hears conversational speech. No nasal drainage. NECK: Supple without lymphadenopathy. CHEST: Non-labored respirations and equal bilateral excursions. CARDIOVASCULAR: Palpable 2+ radial pulses. ABDOMEN: Soft. Nondistended. Nontender. MUSCULOSKELETAL: No clubbing or cyanosis. NEUROLOGIC: No focal or lateralizing signs. Cranial nerves II through XII grossly intact. PSYCH: Appropriate affect. Alert and oriented to person, place and time. SKIN: Well perfused. Good skin turgor. ASSESSMENT: 1. Retroperitoneal hematoma 2. Acute blood loss anemia secondary to Retroperitoneal bleed 3. COVID-19 pneumonia 4. Acute hypoxic respiratory failure secondary to COVID-19 pneumonia 5. Acute myocarditis 6. Acute kidney injury followed by nephrology 7. Chronic kidney disease stage IV 8. History of AICD 9. History of diabetes mellitus type 2 PLAN: -No surgical intervention planned -We'll continue to observe patient -Continue to monitor hemoglobin Physician Candlemaking Laborer note has been reviewed by physician. Signing provider agrees with the documented findings, assessment, and plan of care. Objective - Vital Signs Vital signs: Vital Signs Temp 97.5 F L 12/08/20 09:49 Pulse 83 12/08/20 09:49 Resp 20 12/08/20 09:49 BP 121/65 12/08/20 09:49 Pulse Ox 91 L 12/08/20 09:49 Intake & Output 12/07/20 12/08/20 12/08/20 18:59 06:59 18:59 Output Total 400 Balance -400 Output: Urine 400 Other: Voiding Method Indwelling Catheter Indwelling Catheter - Labs CBC & Chem 7: 12/07/20 06:48 12/07/20 06:48 Labs: Abnormal Lab Results - Last 24 Hours (Table) 12/07/20 12/07/20 12/07/20 Range/Units 06:48 06:48 06:48 Fibrinogen (200-500) mg/dL Carbon Dioxide 20.4 L (21.6-31.8) mmol/L Anion Gap 16.60 H (4.00-12.00) mmol/L BUN 154.0 H* (9.0-27.0) mg/dL Creatinine 3.2 H (0.6-1.5) mg/dL Est GFR (CKD-EPI)AfAm 21.0 L (60.0-200.0) Est GFR (CKD-EPI)NonAf 18.1 L (60.0-200.0) BUN/Creatinine Ratio 48.13 H (12.00-20.00) Ratio POC Glucose (mg/dL) (75-99) mg/dL Calcium 6.1 L* (8.7-10.3) mg/dL Phosphorus 8.0 H (2.4-5.1) mg/dL Lactate Dehydrogenase 971 H (120-246) U/L Total Protein (PEP) 4.0 L (6.2-8.2) g/dL IgG 458.0 L (700.0-1600.0) mg/dL IgM 22.6 L (40.0-280.0) mg/dL 12/07/20 12/07/20 12/08/20 Range/Units 16:21 20:16 06:35 Fibrinogen 174 L (200-500) mg/dL Carbon Dioxide (21.6-31.8) mmol/L Anion Gap (4.00-12.00) mmol/L BUN (9.0-27.0) mg/dL Creatinine (0.6-1.5) mg/dL Est GFR (CKD-EPI)AfAm (60.0-200.0) Est GFR (CKD-EPI)NonAf (60.0-200.0) BUN/Creatinine Ratio (12.00-20.00) Ratio POC Glucose (mg/dL) 160 H 211 H (75-99) mg/dL Calcium (8.7-10.3) mg/dL Phosphorus (2.4-5.1) mg/dL Lactate Dehydrogenase (120-246) U/L Total Protein (PEP) (6.2-8.2) g/dL IgG (700.0-1600.0) mg/dL IgM (40.0-280.0) mg/dL 12/08/20 12/08/20 12/08/20 Range/Units 06:58 11:23 11:35 Fibrinogen (200-500) mg/dL Carbon Dioxide (21.6-31.8) mmol/L Anion Gap (4.00-12.00) mmol/L BUN (9.0-27.0) mg/dL Creatinine (0.6-1.5) mg/dL Est GFR (CKD-EPI)AfAm (60.0-200.0) Est GFR (CKD-EPI)NonAf (60.0-200.0) BUN/Creatinine Ratio (12.00-20.00) Ratio POC Glucose (mg/dL) 100 H 59 L 63 L (75-99) mg/dL Calcium (8.7-10.3) mg/dL Phosphorus (2.4-5.1) mg/dL Lactate Dehydrogenase (120-246) U/L Total Protein (PEP) (6.2-8.2) g/dL IgG (700.0-1600.0) mg/dL IgM (40.0-280.0) mg/dL 12/08/20 Range/Units 11:49 Fibrinogen (200-500) mg/dL Carbon Dioxide (21.6-31.8) mmol/L Anion Gap (4.00-12.00) mmol/L BUN (9.0-27.0) mg/dL Creatinine (0.6-1.5) mg/dL Est GFR (CKD-EPI)AfAm (60.0-200.0) Est GFR (CKD-EPI)NonAf (60.0-200.0) BUN/Creatinine Ratio (12.00-20.00) Ratio POC Glucose (mg/dL) 409 H (75-99) mg/dL Calcium (8.7-10.3) mg/dL Phosphorus (2.4-5.1) mg/dL Lactate Dehydrogenase (120-246) U/L Total Protein (PEP) (6.2-8.2) g/dL IgG (700.0-1600.0) mg/dL IgM (40.0-280.0) mg/dL Microbiology - Last 24 Hours (Table) 12/05/20 02:27 Blood Culture - Preliminary Blood No Growth after 72 hours 12/04/20 14:45 Urine Culture - Final Urine,Voided Escherichia coli Enterococcus faecalis 12/03/20 13:07 Blood Culture - Preliminary Blood No Growth after 96 hours <Yanet Levin N - Last Filed: 01/26/21 22:47> Subjective CHIEF COMPLAINT: Hematoma HISTORY OF PRESENT ILLNESS: The patient is a 75 year old male admitted for fatigue and weakness over 2 weeks. He presented COVID positive including acute renal failure. He is being supported with supplemental oxygen. No reports of acute gastrointestional bleeding. He has new DVT. REVIEW OF ORGAN SYSTEMS: No new chest pain. No nause or vomiting. No recent stroke. PHYSICAL EXAM: VITALS: Reviewed CONSTITUTIONAL: Well developed and in no acute distress. EYES: Conjuctivae without sclera icterus. Extraocular movements grossly intact. HEAD, EARS, NOSE, THROAT: Moist buccal mucosa. Hears conversational speech. No nasal drainage. RESPIRATORY: Non-labored respirations and equal bilateral excursions. No gross wheezes. CARDIOVASCULAR: Palpable 2+ radial pulses. ABDOMEN: No peritonitis. No palpable tenderness MUSCULOSKELETAL: Nail and fingers with good capillary refill. SKIN: Warm and well perfused with good skin turgor. NEUROLOGIC: Cranial nerves II through XII grossly intact. Sensation upper and extremities intact. No focal or lateralizing signs. PSYCH: Alert and oriented to self CLINCAL LABS: Reviewed. WBC down from over 20 to over 19. Hemoglobin down from 7.6 to 7.0. Creatinine down to 3.1 ASSESSMENT: 1. Retroperitoneal hematoma 2. COVID-19 pneumonia 3. Acute pancreatitis 4. Acute renal failure 5. Uremia 6. Sepsis 7. Thrombocytopenia 8. DVT PLAN: 1. Vascular following for DVT and filter placement 2. Avoid anti-coagulants 3. Continue supportive care. Objective - Vital Signs Vital signs: Vital Signs Temp 97 F L 12/08/20 17:43 Pulse 76 12/08/20 17:43 Resp 18 12/08/20 17:43 BP 122/71 12/08/20 17:43 Pulse Ox 95 12/08/20 17:43 Intake & Output 12/08/20 12/08/20 12/09/20 06:59 18:59 06:59 Intake Total 20 Output Total 700 Balance -680 Weight 85.2 kg Intake: IV 20 Output: Urine 700 Other: Voiding Method Indwelling Catheter Indwelling Catheter - Labs CBC & Chem 7: 12/16/20 06:59 12/18/20 07:14 Labs: Abnormal Lab Results - Last 24 Hours (Table) 12/07/20 12/07/20 12/07/20 Range/Units 06:48 06:48 20:16 WBC (4.50-10.00) X 10*3/uL RBC (4.40-5.60) X 10*6/uL Hgb (13.0-17.0) g/dL Hct (39.6-50.0) % RDW (11.5-14.5) % Plt Count (140-440) X 10*3/uL Plt Count Comment MPV (9.5-12.2) fL Absolute Nucleated RBC (0.00-0.00) X 10*3/uL Immature Gran # (0.00-0.04) X 10*3/uL Neutrophils # (1.80-7.70) X 10*3/uL Lymphocytes # (0.90-5.00) X 10*3/uL Eosinophils # (0.04-0.35) X 10*3/uL NRBC/100 WBC Diff (0.0-0.0) /100 WBCS Immature Plt Fraction (1.1-6.1) % Fibrinogen (200-500) mg/dL Carbon Dioxide 20.4 L (21.6-31.8) mmol/L Anion Gap 16.60 H (4.00-12.00) mmol/L BUN 154.0 H* (9.0-27.0) mg/dL Creatinine 3.2 H (0.6-1.5) mg/dL Est GFR (CKD-EPI)AfAm 21.0 L (60.0-200.0) Est GFR (CKD-EPI)NonAf 18.1 L (60.0-200.0) BUN/Creatinine Ratio 48.13 H (12.00-20.00) Ratio POC Glucose (mg/dL) 211 H (75-99) mg/dL Calcium 6.1 L* (8.7-10.3) mg/dL Phosphorus 8.0 H (2.4-5.1) mg/dL Lactate Dehydrogenase 971 H (120-246) U/L Total Protein (PEP) 4.0 L (6.2-8.2) g/dL Albumin (PEP) 2.34 L (3.80-4.90) g/dL Qlerj-8-Hurhmmdbp 0.58 L (0.60-1.00) g/dL Beta Globulins 0.41 L (0.60-1.30) g/dL Gamma Globulins 0.40 L (0.70-1.50) g/dL 12/08/20 12/08/20 12/08/20 Range/Units 06:35 06:35 06:35 WBC 19.60 H (4.50-10.00) X 10*3/uL RBC 2.22 L (4.40-5.60) X 10*6/uL Hgb 7.0 L (13.0-17.0) g/dL Hct 21.2 L (39.6-50.0) % RDW 16.6 H (11.5-14.5) % Plt Count 77 L (140-440) X 10*3/uL Plt Count Comment DECREASED A MPV 13.2 H (9.5-12.2) fL Absolute Nucleated RBC 0.05 H (0.00-0.00) X 10*3/uL Immature Gran # 0.22 H (0.00-0.04) X 10*3/uL Neutrophils # 17.89 H (1.80-7.70) X 10*3/uL Lymphocytes # 0.47 L (0.90-5.00) X 10*3/uL Eosinophils # 0.03 L (0.04-0.35) X 10*3/uL NRBC/100 WBC Diff 0.3 H (0.0-0.0) /100 WBCS Immature Plt Fraction 6.4 H (1.1-6.1) % Fibrinogen 174 L (200-500) mg/dL Carbon Dioxide (21.6-31.8) mmol/L Anion Gap 14.50 H (4.00-12.00) mmol/L BUN 145.0 H* (9.0-27.0) mg/dL Creatinine 3.1 H (0.6-1.5) mg/dL Est GFR (CKD-EPI)AfAm 21.8 L (60.0-200.0) Est GFR (CKD-EPI)NonAf 18.8 L (60.0-200.0) BUN/Creatinine Ratio 46.77 H (12.00-20.00) Ratio POC Glucose (mg/dL) (75-99) mg/dL Calcium 6.4 L* (8.7-10.3) mg/dL Phosphorus (2.4-5.1) mg/dL Lactate Dehydrogenase (120-246) U/L Total Protein (PEP) (6.2-8.2) g/dL Albumin (PEP) (3.80-4.90) g/dL Kboxp-2-Wvykhwkwe (0.60-1.00) g/dL Beta Globulins (0.60-1.30) g/dL Gamma Globulins (0.70-1.50) g/dL 12/08/20 12/08/20 12/08/20 Range/Units 06:58 11:23 11:35 WBC (4.50-10.00) X 10*3/uL RBC (4.40-5.60) X 10*6/uL Hgb (13.0-17.0) g/dL Hct (39.6-50.0) % RDW (11.5-14.5) % Plt Count (140-440) X 10*3/uL Plt Count Comment MPV (9.5-12.2) fL Absolute Nucleated RBC (0.00-0.00) X 10*3/uL Immature Gran # (0.00-0.04) X 10*3/uL Neutrophils # (1.80-7.70) X 10*3/uL Lymphocytes # (0.90-5.00) X 10*3/uL Eosinophils # (0.04-0.35) X 10*3/uL NRBC/100 WBC Diff (0.0-0.0) /100 WBCS Immature Plt Fraction (1.1-6.1) % Fibrinogen (200-500) mg/dL Carbon Dioxide (21.6-31.8) mmol/L Anion Gap (4.00-12.00) mmol/L BUN (9.0-27.0) mg/dL Creatinine (0.6-1.5) mg/dL Est GFR (CKD-EPI)AfAm (60.0-200.0) Est GFR (CKD-EPI)NonAf (60.0-200.0) BUN/Creatinine Ratio (12.00-20.00) Ratio POC Glucose (mg/dL) 100 H 59 L 63 L (75-99) mg/dL Calcium (8.7-10.3) mg/dL Phosphorus (2.4-5.1) mg/dL Lactate Dehydrogenase (120-246) U/L Total Protein (PEP) (6.2-8.2) g/dL Albumin (PEP) (3.80-4.90) g/dL Thxcb-3-Lozzpfeej (0.60-1.00) g/dL Beta Globulins (0.60-1.30) g/dL Gamma Globulins (0.70-1.50) g/dL 12/08/20 Range/Units 11:49 WBC (4.50-10.00) X 10*3/uL RBC (4.40-5.60) X 10*6/uL Hgb (13.0-17.0) g/dL Hct (39.6-50.0) % RDW (11.5-14.5) % Plt Count (140-440) X 10*3/uL Plt Count Comment MPV (9.5-12.2) fL Absolute Nucleated RBC (0.00-0.00) X 10*3/uL Immature Gran # (0.00-0.04) X 10*3/uL Neutrophils # (1.80-7.70) X 10*3/uL Lymphocytes # (0.90-5.00) X 10*3/uL Eosinophils # (0.04-0.35) X 10*3/uL NRBC/100 WBC Diff (0.0-0.0) /100 WBCS Immature Plt Fraction (1.1-6.1) % Fibrinogen (200-500) mg/dL Carbon Dioxide (21.6-31.8) mmol/L Anion Gap (4.00-12.00) mmol/L BUN (9.0-27.0) mg/dL Creatinine (0.6-1.5) mg/dL Est GFR (CKD-EPI)AfAm (60.0-200.0) Est GFR (CKD-EPI)NonAf (60.0-200.0) BUN/Creatinine Ratio (12.00-20.00) Ratio POC Glucose (mg/dL) 409 H (75-99) mg/dL Calcium (8.7-10.3) mg/dL Phosphorus (2.4-5.1) mg/dL Lactate Dehydrogenase (120-246) U/L Total Protein (PEP) (6.2-8.2) g/dL Albumin (PEP) (3.80-4.90) g/dL Vpxwj-1-Pxbtszqtb (0.60-1.00) g/dL Beta Globulins (0.60-1.30) g/dL Gamma Globulins (0.70-1.50) g/dL Microbiology - Last 24 Hours (Table) 12/03/20 13:07 Blood Culture - Preliminary Blood No Growth after 120 hours 12/05/20 02:27 Blood Culture - Preliminary Blood No Growth after 72 hours 12/04/20 14:45 Urine Culture - Final Urine,Voided Escherichia coli Enterococcus faecalis Assessment and Plan (1) Acute on chronic renal failure Status: Acute Priority: High Code(s): N17.9 - ACUTE KIDNEY FAILURE, UNSPECIFIED; N18.9 - CHRONIC KIDNEY DISEASE, UNSPECIFIED SNOMED Code(s): 714992180 (2) COVID-19 Status: Acute Code(s): U07.1 - COVID-19 SNOMED Code(s): 122090319 (3) DVT (deep venous thrombosis) Status: Acute Priority: High Code(s): I82.409 - ACUTE EMBOLISM AND THOMBOS UNSP DEEP VN UNSP LOWER EXTREMITY SNOMED Code(s): 025893334 (4) Pneumonia due to COVID-19 virus Status: Acute Code(s): U07.1 - COVID-19; J12.82 - Pneumonia due to coronavirus disease 2019 SNOMED Code(s): 604628209481133610 (5) Retroperitoneal hematoma Status: Acute Priority: High Code(s): K66.1 - HEMOPERITONEUM SNOMED Code(s): 688396955 (6) Thrombocytopenia Status: Acute Priority: High Code(s): D69.6 - THROMBOCYTOPENIA, UNSPECIFIED SNOMED Code(s): 187649601
[2020-12-08] MEDS ORDERED: LIDOCAINE 1% INJ 10MG/ML (20 ML MDV) ONE (12:23)
[2020-12-08] MEDS: FERROUS SULFATE 325 MG TAB PO SCH ×2 (12:28→16:34)
[2020-12-08] MEDS ORDERED: IV FLUID CONTINUATION 1,000 ML IV ONE (12:35)
[2020-12-08] MEDS ORDERED: MIDAZOLAM 2 MG/2 ML VIAL IVP ONE (12:37)
[2020-12-08] MEDS ORDERED: LIDOCAINE 1% INJ 10MG/ML (20 ML MDV) SQ ONE (12:40)
[2020-12-08] MEDS ORDERED: IOPAMIDOL-250 50ML BTL INTRAARTER ONE (12:45)
[2020-12-08 12:56] LABS: Basophils # (A) 0.01 X 10*3/uL (0.00-0.10); Basophils % (A) 0.1 %; Eosinophils # (A) 0.03 X 10*3/uL (0.04-0.35); Eosinophils % (A) 0.2 %; HCT 21.2 % (39.6-50.0); Lymphocytes # (A) 0.47 X 10*3/uL (0.90-5.00); Lymphocytes % (A) 2.4 %; MCH 31.5 pg (27.0-32.0); MCV 95.5 fL (80.0-97.0); Mean Platelet Volume 13.2 fL (9.5-12.2); Monocytes # (A) 0.98 X 10*3/uL (0.20-1.00); Neutrophils # (A) 17.89 X 10*3/uL (1.80-7.70); Neutrophils % (A) 91.2 %; Platelet Count 77 X 10*3/uL (140-440); RBC 2.22 X 10*6/uL (4.40-5.60); RDW 16.6 % (11.5-14.5)
[2020-12-08] MEDS ORDERED: fentaNYL (PF) 50 MCG/ML 2 ML AMP IV ONE (13:15)
[2020-12-08] MEDS ORDERED: MIDAZOLAM 2 MG/2 ML VIAL IV ONE (13:15)
[2020-12-08 13:33] LABS: Albumin 2.34 g/dL (3.80-4.90)
--- NOTE | 2020-12-08 14:02 | IR ---
Fluoroscopy HISTORY: IVC filter placement 0.4 minutes fluoroscopy time supplied to the referring clinician. 58 intraoperative C-arm images doc ument the procedure. See dictated report from vascular surgery.
--- NOTE | 2020-12-08 14:02 | P.OP ---
Date of Procedure: 12/08/20 Preoperative Diagnosis: #1: Left femoral deep venous thrombosis. #2: Contraindication to anticoagulation. Postoperative Diagnosis: Same. Procedure(s) Performed: #1: Ultrasound-guided cannulation right common femoral vein. #2: Right iliac venogram and inferior venacavogram. #3: Placement of IVC filter (Cook tulip). Anesthesia: local (With 1 mg of Versed administered intravenously for moderate conscious sedation purposes.) Surgeon: Kalen John Estimated Blood Loss (ml): 2 Urine output (ml): 0 Pathology: none sent Condition: stable Disposition: no change Indications for Procedure: Patient is a 75-year-old male who was admitted due to Covid related issues. During his hospital stay was found be suffering from acute left femoral deep venous thrombosis. He was placed on heparin therapy however was found to experience a retroperitoneal bleed requiring transfusion of multiple units of packed red blood cells. Because of bleeding complication is felt the patient has a contraindication to anticoagulation and thus is offered an IVC filter. Description of Procedure: Patient was brought to the special procedure suite. Both groins were sterilely prepped and draped in usual manner. The patient did receive 1 mg of Versed intravenously for moderate conscious sedation purposes. 1% Xylocaine was lysed local anesthesia tissues overlying the right femoral vein. Through this anesthetized area and with the aid of ultrasound a multipurpose needle was utilized to cannulate the vein. Once cannulated a softip guidewire was advanced into the vein. The needle was withdrawn and a 5- Greek sheath was placed. Guidewire was withdrawn. Right iliac venogram as well as inferior venacavogram was performed. This demonstrated normal venous anatomy with no evidence of venous thrombotic event. The renal veins were ident ified at the L1 level. The vena cava measured less than 30 mm in diameter but greater than 15 mm in diameter. Guidewire was advanced through the sheath and the sheath was withdrawn. Vascular dilator was advanced over the guidewire and withdrawn. A Cook dilator and introducer sheath were advanced over the guidewire and positioned at the L2- L3 level. Dilator and guidewire withdrawn. The tulip filter was advanced and deployed. Follow-up venogram demonstrated the filter to be in good position without evidence of complication. The sheath was withdrawn and pressure was held at the puncture site until all evidence of bleeding ceased. Patient tolerated the procedure well and was returned to his room in satisfactory and stable condition. Total fluoroscopy time 0.4 minutes. Total contrast volume 15 ML's of Isovue 250.
[2020-12-08 14:08] LABS: Heparin Induced Plt Abs 0.115 OD (<0.4)
[2020-12-08 14:24] LABS: African American GFR (CKD) 21.8 (60.0-200.0); Anion Gap 14.5 mmol/L (4.00-12.00); BUN/Creat Ratio 46.77 Ratio (12.00-20.00); Calcium 6.4 mg/dL (8.7-10.3); Carbon Dioxide 23.5 mmol/L (21.6-31.8); Magnesium 2.2 mg/dL (1.5-2.4); Non-African American GFR(CKD) 18.8 (60.0-200.0); Potassium 4.5 mmol/L (3.5-5.5)
[2020-12-08] MEDS: allopurinoL 100 MG TAB PO SCH (16:34)
[2020-12-08] MEDS: DEXTROSE 5% IN WATER 1,000 ML with SODIUM BICARB (1 MEQ/ML) 150 ML IV SCH (16:36)
--- NOTE | 2020-12-08 16:57 | PN ---
PROGRESS NOTE DATE OF SERVICE: 12/08/2020 REASON FOR FOLLOWUP: Pneumonia. INTERVAL HISTORY: The patient is currently afebrile. The patient is breathing comfortably. The patient was noted to have a DVT in his right lower extremity, status post IVC filter placement. The patient denies having any chest pain. Breathing is at baseline; no worsening. No vomiting. No abdominal pain or diarrhea. PHYSICAL EXAMINATION: Blood pressure 122/79 with a pulse of 70, temperature 97. He is 92% on non-rebreather. General description is an elderly male lying in bed in no distress. RESPIRATORY SYSTEM: Unlabored breathing. Clear to auscultation anteriorly. HEART: S1, S2. Regular rate and rhythm. ABDOMEN: Soft. No tenderness. LABS: Hemoglobin is 7 with a white count of 19.60, BUN of 145, creatinine 3.1. Urine is showing Enterococcus and E coli. DIAGNOSTIC IMPRESSION AND PLAN: Patient with pneumonia, concern for nosocomial pathogen. Patient is covered with cefepime and Zyvox, which will cover the UTI as well. Overall prognosis remains guarded. Monitor clinical course closely. MMODL / IJN: [id number] /
[2020-12-08 17:27] LABS: Glucose,Whole Blood 85 mg/dL (75-99)
--- NOTE | 2020-12-08 20:35 | P.PN ---
Progress Note - Text Progress Note Date: 12/08/20 Chief Complaint: Tired History of presenting complaint: Pleasant 75-year-old patient of Dr. Horta. Chronic stable medical conditions include diabetes, hypothyroid, gout, peripheral neuropathy, diabetic retinopathy, chronic kidney disease, coronary artery disease with a history of bypass and AICD. Patient's is by the bedside who provides most of the history. Patient about 7 days ago on Friday every couple of days before that has started feeling a little bit tired. Motor worse on Friday. Also developed a fever. Decreased appetite diet. Had some diarrhea. Body aches. No loss of smell or taste. Patient did have COVID rapid tested on that was negative. Now becomes short of breath with minimal exertion tired rundown. Patient is tested positive for COVID 19. Initial pulse ox on room air was 98% and then did go down to 94% on 2 L. Admitted with acute bilateral COVID 19 pneumonitis, acute hypoxic respiratory failure, acute myocarditis. Placed on dexamethasone Lovenox. IV Remdesivir. Patient is requiring high flow oxygen. Patient dropped his hemoglobin on the . Receive 2 units of blood. Patient's front of her retroperitoneal bleed. Received a total of 4 units of blood. Left leg DVT-IVC filter placed on December 08 Today: On Airvo/nonrebreather. Tired. Not really able to eat. Today had a IVC filter placed. Review of systems: Was done for constitutional, cardiovascular, GI, pulmonary. relevant finding as above Active Medications Acetaminophen (Acetaminophen Tab 325 Mg Tab) 650 mg PO Q6HR PRN PRN Reason: Fever and/ or Pain Last Admin: 12/06/20 20:49 Dose: 650 mg Documented by: Allopurinol (Allopurinol 100 Mg Tab) 100 mg PO W/SUPPER [facility] Last Admin: 12/08/20 16:34 Dose: Not Given Documented by: Alprazolam (Alprazolam 0.25 Mg Tab) 0.25 mg PO Q8HR PRN PRN Reason: Anxiety Last Admin: 12/08/20 05:29 Dose: 0.25 mg Documented by: Ascorbic Acid (Ascorbic Acid 500 Mg Tab) 500 mg PO BID [facility] Last Admin: 12/08/20 10:01 Dose: Not Given Documented by: Atorvastatin Calcium (Atorvastatin 40 Mg Tab) 40 mg PO HS [facility] Last Admin: 12/07/20 20:43 Dose: 40 mg Documented by: Carvedilol (Carvedilol 6.25 Mg Tab) 6.25 mg PO BID-W/MEALS [facility] Last Admin: 12/08/20 16:34 Dose: Not Given Documented by: Cholecalciferol (Cholecalciferol 25 Mcg (1000 Iu) Tablet) 100 mcg PO DAILY [facility] Last Admin: 12/08/20 10:00 Dose: Not Given Documented by: Darbepoetin Rizwan (Darbepoetin Rizwan 40 Mcg/0.4 Ml Syringe) 40 mcg SQ Q7D [facility] Last Admin: 12/05/20 11:29 Dose: 40 mcg Documented by: Dexamethasone Sodium Phosphate (Dexamethasone Sod Phosphate 10 Mg/Ml 1 Ml Vial) 6 mg IV DAILY [facility] Last Admin: 12/08/20 10:02 Dose: 6 mg Documented by: Famotidine (Famotidine 20 Mg Tab) 20 mg PO DAILY [facility] Last Admin: 12/08/20 10:00 Dose: Not Given Documented by: Ferrous Sulfate (Ferrous Sulfate 325 Mg Tab) 325 mg PO BID@1200,1800 [facility] Last Admin: 12/08/20 16:34 Dose: Not Given Documented by: Cefepime HCl 1 gm/ Sodium (Chloride) 50 mls @ 12.5 mls/hr IVPB Q12HR [facility] Last Admin: 12/08/20 10:02 Dose: 12.5 mls/hr Documented by: Sodium Bicarbonate 150 ml/ (Dextrose/Water) 1,150 mls @ 50 mls/hr IV .Q23H [facility] Last Admin: 12/08/20 16:36 Dose: 50 mls/hr Documented by: Insulin Aspart (Insulin Aspart (Novolog) 100 Unit/Ml Vial) 0 unit SQ [facility]; Protocol Last Admin: 12/08/20 17:33 Dose: Not Given Documented by: Insulin Detemir (Insulin Detemir (Levemir) 100 Unit/Ml Syr) 35 unit SQ DAILY@0700 [facility] Last Admin: 12/08/20 09:58 Dose: Not Given Documented by: Insulin Detemir (Insulin Detemir (Levemir) 100 Unit/Ml Syr) 35 unit SQ [facility] Last Admin: 12/07/20 20:44 Dose: 35 unit Documented by: Levothyroxine Sodium (Levothyroxine 100 Mcg Tab) 100 mcg PO 0630 [facility] Last Admin: 12/08/20 05:29 Dose: 100 mcg Documented by: Linezolid (Linezolid 600 Mg Tab) 600 mg PO Q12HR [facility] Last Admin: 12/08/20 10:00 Dose: Not Given Documented by: Naloxone HCl (Naloxone 0.4 Mg/Ml 1 Ml Vial) 0.2 mg IV Q2M PRN PRN Reason: Opioid Reversal Pantoprazole Sodium (Pantoprazole 40 Mg/10 Ml Vial) 40 mg IVP BID [facility] Last Admin: 12/08/20 10:02 Dose: 40 mg Documented by: Repaglinide (Repaglinide 1 Mg Tab) 0.25 mg PO AC-BID [facility] Last Admin: 12/08/20 16:34 Dose: Not Given Documented by: Tamsulosin HCl (Tamsulosin 0.4 Mg Cap.Er.24h) 0.4 mg PO HS [facility] Last Admin: 12/07/20 20:43 Dose: 0.4 mg Documented by: Zinc Sulfate (Zinc Sulfate 220 Mg Cap) 220 mg PO DAILY [facility] Last Admin: 12/08/20 10:03 Dose: Not Given Documented by: Past medical history to include: Diabetes, hypothyroid, gout, diabetic peripheral neuropathy, diabetic retinopathy, chronic kidney disease stage IV, coronary artery disease with bypass, AICD Social history: No history of smoking or alcohol. . 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 PSYCH: [Alert and oriented x3; mood and affect tired NEUROLOGICAL: Cranial nerves grossly intact; no facial asymmetry, moving all 4 limbs Rest of exam per pulmonary and nursing INVESTIGATIONS, reviewed in the clinical context: December 08: Accu-Cheks 59, 63 Ultrasound Doppler lower extremity bilateral: Acute DVT in the left lower extremity with hyperexpanded material filling the lumen and absent color flow begins in the superficial femoral vein and more prominent findings in the mid and distal sebaceous femoral vein. December 07: WBC 20.04 hemoglobin 7.6 platelets 66 potassium 4.7 creatinine 3.2 bun 154 calcium 6.1 phosphorus 8 Computed tomography scan of abdomen and pelvis: Fairly moderate to large size pelvic retroperitoneal hematoma with local mass effect. Mild cortical thinning in both the kidneys. November 28: WBC 20.6 hemoglobin 6.1 platelets 77 potassium 5 BUN 151 creatinine 3.61 lactic acid 3.1 calcium 5.8 November 27: WBC 5.4 hemoglobin 9.3 potassium 4.8 creatinine 2.2 LDH 687 CRP 1.2 November 21: Potassium 4.8 creatinine 2.7 2-D echocardiogram: EF 50-55% November 20 Potassium 5.1 creatinine 2.85 d-dimer 0.47 CRP 70 WBC 3.2 hemoglobin 9.7 platelets 164 lymphocytes 0.5 sodium 131 potassium 4.8 bun 61 creatinine 3.37 Troponin I 0.073, 0.073, 0.068 albumin 3.2 Urine protein 2+ moderate blood Coronavirus [PCR] detected EKG tracing personally reviewed by me-normal sinus rhythm Chest x-ray film personally reviewed by me-bilateral infiltrates Renal ultrasound-normal Assessment and plan: -Acute bilateral COVID 19 pneumonia. Symptoms started about a week before presentation.-Slow to respond on IV dexamethasone, subcu Lovenox-held, vitamin C vitamin D Pepcid and zinc. November 20 - Remdesivir -Acute hypoxic respiratory failure, secondary to COVID 19 pneumonia: -Worsening Advanced to a interval/nonrebreather 60% -Acute myocarditis secondary to COVID 19 Telemetry. watch for arrhythmias. -Acute kidney injury likely ATN from sepsis from COVID 19, hypertension. Improved with IV fluids. -Chronic kidney disease stage IV secondary to diabetic kidney disease. Creatinine 2.17 August 2020 Follow renal function -AICD On telemetry -Coronary artery disease with prior history of carotid bypass Continue with Coreg, Lipitor, aspirin -Hypothyroid Continue with Synthroid -Diabetes mellitus type 2, on oral hypoglycemic, uncontrolled with hyperglycemia Follow Accu-Cheks with sliding scale insulin. Increase Levemir to 28 units at night -Chronic gout Continue with allopurinol -Anemia of chronic kidney disease Follow H&H and continue with erythropoietin -Diabetic retinopathy Follow clinically -Diabetic peripheral neuropathy Follow clinically -Hyponatremia from a relative decrease in solute from decreased appetite- improving Saline IV -Metabolic acidosis due to chronic kidney disease Supplement bicarb -Acute retroperitoneal bleed likely from patient being on Lovenox Lovenox has been on hold. General surgery -weight and watch -Acute severe blood loss anemia from retroperitoneal bleed Patient was received a total of 4 units of blood by today -Acute left lower extremity above-knee DVT-new diagnosis today [facility] vascular surgery. Patient not a candidate for anticoagulation. Patient to be evaluated for Ketty filter -Hyperphosphatemia due to acute on chronic kidney disease IVC filter Cokes/to live placed today. Discussed with the patient about possible PEG tube. General surgery informed. Also discussed patient is IVC filter placement with the vascular surgery. Procedure went fine. Late in the evening I spoke to patient's updated on today's proceedings. Including the discussion about the PEG tube. Also that the patient has been indicating about DO NOT RESUSCITATE. Patient's will call and talk to the patient tomorrow morning and then proceed from there. Total time spent today about 45 minutes with over 25 minutes of discussion
[2020-12-08 20:38] LABS: Albumin 2.7 g/dL (3.80-4.90); Albumin/Globulin Ratio 1.69 (1.60-3.17); Globulin 1.6 g/dL (1.6-3.3); Total Bilirubin 0.6 mg/dL (0.3-1.2); Total Protein 4.3 g/dL (6.2-8.2)
[2020-12-08 20:56] LABS: Glucose,Whole Blood 65 mg/dL (75-99)
[2020-12-08] MEDS: ATORVASTATIN 40 MG TAB PO SCH (21:18)
[2020-12-08] MEDS: TAMSULOSIN 0.4 MG CAP.ER.24H PO SCH (21:19)
[2020-12-08] MEDS ORDERED: DEXTROSE 50% SYRINGE 50 ML IVP STA (21:36)
[2020-12-08 22:29] LABS: Glucose,Whole Blood 186 mg/dL (75-99)
[2020-12-09] MEDS: LEVOTHYROXINE 100 MCG TAB PO SCH (03:47)
[2020-12-09 07:22] LABS: Glucose,Whole Blood 70 mg/dL (75-99)
[2020-12-09] MEDS: INSULIN ASPART (NovoLOG) 100 UNIT/ML VIAL SQ SCH ×4 (07:38→21:22)
[2020-12-09] MEDS: INSULIN DETEMIR (LEVEMIR) 100 UNIT/ML SYR SQ SCH ×2 (07:38→21:21)
[2020-12-09] MEDS: REPAGLINIDE 1 MG TAB PO SCH ×2 (07:39→17:15)
[2020-12-09] MEDS: PANTOPRAZOLE 40 MG/10 ML VIAL IVP SCH ×2 (08:25→21:21)
[2020-12-09] MEDS: DEXAMETHASONE SOD PHOSPHATE 10 MG/ML 1 ML VIAL IV SCH (08:25)
[2020-12-09] MEDS: CEFEPIME 1 GM in SODIUM CHLORIDE 0.9% 50 ML IVPB SCH ×2 (08:25→22:18)
[2020-12-09] MEDS: LINEZOLID 600 MG TAB PO SCH ×2 (08:26→21:21)
[2020-12-09] MEDS: ASCORBIC ACID 500 MG TAB PO SCH ×2 (08:26→21:21)
[2020-12-09] MEDS: carvediloL 6.25 MG TAB PO SCH ×2 (08:26→18:10)
[2020-12-09] MEDS: FAMOTIDINE 20 MG TAB PO SCH (08:26)
[2020-12-09] MEDS: ZINC SULFATE 220 MG CAP PO SCH (08:26)
[2020-12-09] MEDS: CHOLECALCIFEROL 25 MCG (1000 IU) TABLET PO SCH (08:26)
[2020-12-09] MEDS ORDERED: DEXTROSE 50% SYRINGE 50 ML IVP ONE (08:29)
[2020-12-09] MEDS: DEXTROSE 50% SYRINGE 50 ML IVP STA (08:30)
[2020-12-09 08:39] LABS: Glucose,Whole Blood 64 mg/dL (75-99)
[2020-12-09 08:51] LABS: Glucose,Whole Blood 202 mg/dL (75-99)
[2020-12-09 11:07] LABS: Glucose,Whole Blood 92 mg/dL (75-99)
[2020-12-09 12:12] LABS: African American GFR (CKD) 19.5 (60.0-200.0); Albumin 2.5 g/dL (3.80-4.90); Albumin/Globulin Ratio 1.92 (1.60-3.17); Anion Gap 12.1 mmol/L (4.00-12.00); BUN/Creat Ratio 36.76 Ratio (12.00-20.00); Calcium 5.8 mg/dL (8.7-10.3); Carbon Dioxide 31.9 mmol/L (21.6-31.8); Globulin 1.3 g/dL (1.6-3.3); Total Bilirubin 0.7 mg/dL (0.2-1.2); Total Protein 3.8 g/dL (6.2-8.2)
[2020-12-09 12:26] LABS: Non-African American GFR(CKD) 16.8 (60.0-200.0)
[2020-12-09 12:57] LABS: Basophils # (A) 0.01 X 10*3/uL (0.00-0.10); Basophils % (A) 0.1 %; Eosinophils # (A) 0.03 X 10*3/uL (0.04-0.35); Eosinophils % (A) 0.2 %; HCT 19.9 % (39.6-50.0); HGB 6.8 g/dL (13.0-17.0); Lymphocytes # (A) 0.42 X 10*3/uL (0.90-5.00); Lymphocytes % (A) 2.1 %; MCH 32.7 pg (27.0-32.0); MCHC 34.2 g/dL (32.0-37.0); MCV 95.7 fL (80.0-97.0); Monocytes # (A) 0.62 X 10*3/uL (0.20-1.00); Monocytes % (A) 3.1 %; Neutrophils # (A) 18.65 X 10*3/uL (1.80-7.70); Neutrophils % (A) 93.8 %; Platelet Count 69 X 10*3/uL (140-440); RBC 2.08 X 10*6/uL (4.40-5.60); WBC 19.87 X 10*3/uL (4.50-10.00)
[2020-12-09 12:58] LABS: Microcytosis (M) 2+
--- NOTE | 2020-12-09 13:08 | P.PN ---
Subjective Progress Note Date: 12/09/20 Follow-up for acute kidney injury. Currently on Airvo,15 L oxygen Objective - Vital Signs Vital signs: Vital Signs Temp 97.4 F L 12/09/20 09:56 Pulse 86 12/09/20 09:56 Resp 20 12/09/20 09:56 BP 132/66 12/09/20 09:56 Pulse Ox 96 12/09/20 09:56 Intake & Output 12/08/20 12/09/20 12/09/20 18:59 06:59 18:59 Intake Total 20 650 Output Total 700 1000 Balance -680 -350 Weight 85.2 kg Intake: IV 20 Intake, IV Titration 650 Amount Cefepime 1 gm In Sodium 50 Chloride 0.9% 50 ml @ 12. 5 mls/hr IVPB Q12HR [facility] Rx#:[id number] Dextrose 5% in Water 1, 600 000 ml @ 50 mls/hr IV . Q23H [facility] with Sodium Bicarb (1 Meq/ml) 150 ml Rx#:[id number] Output: Urine 700 1000 Other: Voiding Method Indwelling Catheter Indwelling Catheter Indwelling Catheter - Exam No acute distress S1-S2 heard Decreased breath sounds Trace edema - Labs CBC & Chem 7: 12/09/20 06:50 12/09/20 06:50 Labs: Abnormal Lab Results - Last 24 Hours (Table) 12/07/20 12/08/20 12/08/20 Range/Units 06:48 06:35 06:35 WBC (4.50-10.00) X 10*3/uL RBC (4.40-5.60) X 10*6/uL Hgb (13.0-17.0) g/dL Hct (39.6-50.0) % MCH (27.0-32.0) pg RDW (11.5-14.5) % Plt Count (140-440) X 10*3/uL Plt Count Comment MPV (9.5-12.2) fL Immature Gran # (0.00-0.04) X 10*3/uL Neutrophils # (1.80-7.70) X 10*3/uL Lymphocytes # (0.90-5.00) X 10*3/uL Eosinophils # (0.04-0.35) X 10*3/uL Immature Plt Fraction 6.4 H (1.1-6.1) % Carbon Dioxide (21.6-31.8) mmol/L Anion Gap 14.50 H (4.00-12.00) mmol/L BUN 145.0 H* (9.0-27.0) mg/dL Creatinine 3.1 H (0.6-1.5) mg/dL Est GFR (CKD-EPI)AfAm 21.8 L (60.0-200.0) Est GFR (CKD-EPI)NonAf 18.8 L (60.0-200.0) BUN/Creatinine Ratio 46.77 H (12.00-20.00) Ratio Glucose (70-110) mg/dL POC Glucose (mg/dL) (75-99) mg/dL Calcium 6.4 L* (8.7-10.3) mg/dL AST 37 H (14-35) U/L Total Protein 4.3 L (6.2-8.2) g/dL Albumin 2.70 L (3.80-4.90) g/dL Albumin (PEP) 2.34 L (3.80-4.90) g/dL Globulin (1.6-3.3) g/dL [id number] 0.58 L (0.60-1.00) g/dL Beta Globulins 0.41 L (0.60-1.30) g/dL Gamma Globulins 0.40 L (0.70-1.50) g/dL 12/08/20 12/08/20 12/09/20 Range/Units 20:54 22:27 06:50 WBC 19.87 H (4.50-10.00) X 10*3/uL RBC 2.08 L (4.40-5.60) X 10*6/uL Hgb 6.8 L* (13.0-17.0) g/dL Hct 19.9 L* (39.6-50.0) % MCH 32.7 H (27.0-32.0) pg RDW 17.0 H (11.5-14.5) % Plt Count 69 L (140-440) X 10*3/uL Plt Count Comment DECREASED A MPV 13.0 H (9.5-12.2) fL Immature Gran # 0.14 H (0.00-0.04) X 10*3/uL Neutrophils # 18.65 H (1.80-7.70) X 10*3/uL Lymphocytes # 0.42 L (0.90-5.00) X 10*3/uL Eosinophils # 0.03 L (0.04-0.35) X 10*3/uL Immature Plt Fraction 7.1 H (1.1-6.1) % Carbon Dioxide (21.6-31.8) mmol/L Anion Gap (4.00-12.00) mmol/L BUN (9.0-27.0) mg/dL Creatinine (0.6-1.5) mg/dL Est GFR (CKD-EPI)AfAm (60.0-200.0) Est GFR (CKD-EPI)NonAf (60.0-200.0) BUN/Creatinine Ratio (12.00-20.00) Ratio Glucose (70-110) mg/dL POC Glucose (mg/dL) 65 L 186 H (75-99) mg/dL Calcium (8.7-10.3) mg/dL AST (14-35) U/L Total Protein (6.2-8.2) g/dL Albumin (3.80-4.90) g/dL Albumin (PEP) (3.80-4.90) g/dL Globulin (1.6-3.3) g/dL Hpyvz-7-Enmntgqxj (0.60-1.00) g/dL Beta Globulins (0.60-1.30) g/dL Gamma Globulins (0.70-1.50) g/dL 12/09/20 12/09/20 12/09/20 Range/Units 06:50 07:18 08:28 WBC (4.50-10.00) X 10*3/uL RBC (4.40-5.60) X 10*6/uL Hgb (13.0-17.0) g/dL Hct (39.6-50.0) % MCH (27.0-32.0) pg RDW (11.5-14.5) % Plt Count (140-440) X 10*3/uL Plt Count Comment MPV (9.5-12.2) fL Immature Gran # (0.00-0.04) X 10*3/uL Neutrophils # (1.80-7.70) X 10*3/uL Lymphocytes # (0.90-5.00) X 10*3/uL Eosinophils # (0.04-0.35) X 10*3/uL Immature Plt Fraction (1.1-6.1) % Carbon Dioxide 31.9 H (21.6-31.8) mmol/L Anion Gap 12.10 H (4.00-12.00) mmol/L BUN 125.0 H* (9.0-27.0) mg/dL Creatinine 3.4 H (0.6-1.5) mg/dL Est GFR (CKD-EPI)AfAm 19.5 L (60.0-200.0) Est GFR (CKD-EPI)NonAf 16.8 L (60.0-200.0) BUN/Creatinine Ratio 36.76 H (12.00-20.00) Ratio Glucose 198 H (70-110) mg/dL POC Glucose (mg/dL) 70 L 64 L (75-99) mg/dL Calcium 5.8 L* (8.7-10.3) mg/dL AST 38 H (14-35) U/L Total Protein 3.8 L (6.2-8.2) g/dL Albumin 2.50 L (3.80-4.90) g/dL Albumin (PEP) (3.80-4.90) g/dL Globulin 1.3 L (1.6-3.3) g/dL Tdits-8-Ykazkuisf (0.60-1.00) g/dL Beta Globulins (0.60-1.30) g/dL Gamma Globulins (0.70-1.50) g/dL 12/09/20 Range/Units 08:49 WBC (4.50-10.00) X 10*3/uL RBC (4.40-5.60) X 10*6/uL Hgb (13.0-17.0) g/dL Hct (39.6-50.0) % MCH (27.0-32.0) pg RDW (11.5-14.5) % Plt Count (140-440) X 10*3/uL Plt Count Comment MPV (9.5-12.2) fL Immature Gran # (0.00-0.04) X 10*3/uL Neutrophils # (1.80-7.70) X 10*3/uL Lymphocytes # (0.90-5.00) X 10*3/uL Eosinophils # (0.04-0.35) X 10*3/uL Immature Plt Fraction (1.1-6.1) % Carbon Dioxide (21.6-31.8) mmol/L Anion Gap (4.00-12.00) mmol/L BUN (9.0-27.0) mg/dL Creatinine (0.6-1.5) mg/dL Est GFR (CKD-EPI)AfAm (60.0-200.0) Est GFR (CKD-EPI)NonAf (60.0-200.0) BUN/Creatinine Ratio (12.00-20.00) Ratio Glucose (70-110) mg/dL POC Glucose (mg/dL) 202 H (75-99) mg/dL Calcium (8.7-10.3) mg/dL AST (14-35) U/L Total Protein (6.2-8.2) g/dL Albumin (3.80-4.90) g/dL Albumin (PEP) (3.80-4.90) g/dL Globulin (1.6-3.3) g/dL Boans-4-Xaekrfqdi (0.60-1.00) g/dL Beta Globulins (0.60-1.30) g/dL Gamma Globulins (0.70-1.50) g/dL Microbiology - Last 24 Hours (Table) 12/05/20 02:27 Blood Culture - Preliminary Blood No Growth after 96 hours 12/03/20 13:07 Blood Culture - Preliminary Blood No Growth after 120 hours Assessment and Plan Assessment: #Acute kidney injury secondary to Covid 19 ATN. #2 CK D stage IV secondary to diabetic kidney disease with a baseline creatinine of 2.0 MG per DL. #3 GI bleed #4 DVT status post IVC filter #5 hypokalemia hypocalcemia suspect secondary to hyperphosphatemia Plan: #1 Renal function stable. Elevated BUNs suspect secondary to steroids/GI bleed. #2 stop bicarbonate drip #3Add gentle hydration with D5 water at 50 ML's an hour. #4 labs in the morning #5 no acute indication for PROPERTY MAN at this time.
--- NOTE | 2020-12-09 13:49 | P.PN ---
Subjective Progress Note Date: 12/09/20 Principal diagnosis: Acute COVID-19 pneumonia 75-year-old male patient, started having symptoms approximately a week ago when he started feeling a bit tired and fatigued. He subsequently developed fever and diminished appetite and some diarrhea. The patient tested positive for COVID 19 infection 4 days ago and this was again confirmed on 11/19/2020. The patient came into the emergency with weakness and shortness of breath. The patient is currently on 2 L of oxygen by nasal cannula. He is known to have CAD, previous bypass, aortic, chronic disease, diabetes mellitus and diabetic retinopathy and neuropathy and hypothyroidism and gout. Lactate was 0.7, there d-dimer was 0.6, white cell count was at 3.2 with a lymphopenia, creatinine was at 3.37 with a mean of 61. He is also on multivitamins. Chest x-ray showing diffuse bilateral pulmonary infiltrates. On today's evaluation of 4 021 the patient is currently on oxygen at 4 L per minute. The patient is quite comfortable. Pulse ox is around 95% and FiO2 can be obviously weaned off. The patient is being seen for a follow-up. The patient is currently being treated with Decadron 6 mg IV every 24 hours. The patient is also on Lovenox 40 mg subcu daily and the patient is also on Remdesivir day #2. No follow-up chest x-rays available from today. The rest of the labs are showing chronic kidney disease with a creatinine of 2.7. The patient has chronic metabolic acidosis which is of a non-anion gap type. On 11/22/2020 patient seen in follow-up. Is comfortable, still desat easily, feels tired, but no acute distress, today's labs have been reviewed, d-dimer 0.69, CRP is 35.6, no LDH. Has not had a chest x-ray, he is currently on 7 L, his pulse ox is 89%, no fever, remains on Remdesivir, today is day 3 of treatment. On 11/23/2020 patient is pretty stable, he remains on 5 L of oxygen, her pulse ox 89-90%, he is breathing comfortably, no worsening dyspnea, his 0.9, saline at 60 per hour, patient completed Remdesivir treatment, he remains on steroids, and prophylactic Lovenox. No worsening dyspnea, today's labs have been reviewed, d- dimer is 1.90, renal profile is slightly improved from yesterday, patient continues on IV fluids, no nausea vomiting or diarrhea, CRP is trending down, LDH with today is pending. On 11/25/2000 patient seen in follow-up on medical surgical floor, he is sitting up in the chair, appears to be breathing comfortably although his oxygen requirements have increased, and is currently on 15 L per high flow nasal cannula up from 12 L from yesterday, he denies any worsening dyspnea, lung sounds reveal diffuse bilateral crackles, no chest discomfort, no signs of any respiratory distress. No cough, no wheezing, today's chest x-ray shows bilateral mid to lower lung increased opacities, findings consistent with COVID- 19 pneumonia, the findings are stable in appearance. Follow-up inflammatory markers showed d-dimer of 19.16, LDH is up to 2028, CRP is 2.4. Patient has completed his Remdesivir course, she remains on daily dose of Decadron 6 mg, and Lovenox 30 mg daily, his renal function appears to be relatively stable, his bun is 64, and creatinine is 2.12 On 11/26/2020 patient seen in follow-up on medical surgical floor, he sitting up in the chair, he is breathing comfortably, he is currently down to 13 L, and his pulse ox is 90-94%, his been afebrile, overall she looks stable, he does not appear to be in any acute distress, he is a d-dimer has trended up, and on today's labs it is up to 30.3, and his Lovenox dose will be adjusted. Today's inflammatory markers are improving. He remains on daily dose IV Decadron 6 mg daily, Lovenox, multivitamins, and his IV fluids are infusing at a rate of 60 ML per hour, no new chest x-ray today, his kidney function shows slight improvement On 11/27/2000 patient seen in follow-up on medical surgical floor, he remains on high flow oxygen 15 L, and the nonrebreather mask, he does desat when he removes his nonrebreather mask down to 86% however he denies any dyspnea, he does not feel stressed at all, and looks very comfortable, he sitting up in the recliner, awake and alert, oriented 3, he is afebrile, hemodynamically has been stable, he has no specific complaints, and his today's chest x-ray shows cardiomegaly and low lung volumes with bilateral mid to lower lung reticular and confluent opacities consistent with COVID-19 pneumonia with no change from previousexam. Today's labs have been reviewed, white blood cell count is 5.45, hemoglobin is 9.3, no d-dimer today, but yesterday's d-dimer was quite elevated at 30.3, and his Lovenox dose was adjusted and increased to 40 mg twice a day, his electrolyte panel shows CO2 of 28.1, but prostate electrolytes are within normal limits, B1 is 84, creatinine is 2.2, his LDH is down to 687, improving, his CRP is 1.2 on today's labs. He continues on Decadron 6 mg daily, he is on Lovenox 40 mg twice a day, and he is receiving IV hydration at 60 ML per hour, nephrology is following On 11/28/2020 patient seen in follow-up on medical surgical floor, he is resting comfortably in bed, he is currently on 15 L high flow and 100% nonrebreather, he looks quite comfortable, he denies any shortness of breath, minimal cough, he is breathing comfortably, his pro-calcitonin level was low, his inflammatory markers were improving, his d-dimer was elevated on 11/26/2020 patient is on 40 mg of Lovenox twice daily, Lasix is at 40 mg every 12 hours patient is in negative fluid balance. No new chest x-ray today On 11/29/2000 patient seen in follow-up on medical surgical floor, is currently on 15 L per high flow nasal cannula, and 100 nonrebreather mask, and he is satting about 93%, he does not feel short of breath, he seems to be breathing very comfortably, he is afebrile, hemodynamically stable, his chest x-ray today shows low lung volumes with bilateral mid to lower lung reticular and confluent opacities consistent with COVID-19 pneumonia. Findings are similar to his previous chest x-ray, lower extremity Dopplers were completed and he was negative for DVT. His d-dimer is trending down, and is down to 16.0. The rest of his lab work has been reviewed, showing white blood cell count of 8.7, hemoglobin of 10.5, sodium is 136, potassium is 4.5, chloride is 98, BUN of 108, and creatinine is 3.2, his calcitonin level was negative at 0.10, his inflammatory markers were improving since admission. No nausea vomiting or diarrhea, and patient continues on daily dose of IV Decadron 6 mg, continues on Lovenox 40 mg twice daily, she was given a dose of Lasix yesterday and he was started on maintenance dose of IV Lasix On 11/30/2020 patient seen in follow-up on medical surgical floor, he is resting comfortably in bed, currently off the nonrebreather mask, on 15 L per high flow nasal cannula with his pulse ox is 90-91%, he looks very comfortable, breathing comfortably, no worsening dyspnea. Cooperative chest discomfort, no cough. No fever or chills. No acute events overnight, patient did receive 1 dose of Toci yesterday 720 mg, he remains on Lovenox 40 mg twice a day, and daily dose Decadron, today's labs have been reviewed, showing white blood cell, 10.1, hemoglobin of 10.3, d-dimer is trending down, down to 11.4, electrolytes are within normal limits, renal profile shows some improvement, pro-Joshua was negative, inflammatory markers are trending down, patient denies any specific complaints On 12/01/2020 patient seen in follow-up on medical surgical floor, is currently on 15 L per high flow nasal cannula and nonrebreather mask, and his pulse ox is 100%, he is breathing very comfortably, denies any cough, denies any chest pain, has had no fever or chills, no nausea vomiting diarrhea, no abdominal pain, no new chest x-rays, his labs have been reviewed, d-dimer today is 12.5, electrolytes are unremarkable, his renal profile slightly improved, his BUN is 113, and creatinine is 2.59. On 12/02/2020 patient seen in follow-up on medical surgical floor, he is currently back on 11 L of oxygen resting comfortably in bed, in comfortably, in his pulse ox was 99%, we dropped the FiO2 down to 8 L, and we instructed the nursing staff to continue weaning it to maintain O2 saturations at or above 90%, patient has no specific complaints, no cough, no chest discomfort, no fever, no chills no headaches, no nausea vomiting or diarrhea. Renal function continues to be impaired, and nephrology is following, his BUN is 1:30, and creatinine is 2.70, electrolytes were unremarkable on today's labs. No new chest x-ray today. Patient remains on IV Decadron 6 mg, and Lovenox is currently at 40 mg twice daily. Follow-up d-dimer is pending for today. The patient is seen today 12/03/2020 follow-up on the regular medical floor. He is currently resting fairly comfortably in bed. They did call and A team on the patient earlier this morning. He had some hypotension. He was found to have a hemoglobin of 6.8 down from 10.3. No active GI bleeding noted. He was given 1 L fluid resuscitation and is receiving 2 units of packed red blood cells. Blood pressure is currently stable. He is still requiring oxygen at 10 L high flow nasal cannula. D-dimer 9.00. White count 22.1. Platelets 106. Sodium 134. Potassium 4.8. BUN 136. Creatinine 3.03. Glucose 149. LDH 1654. C-reactive protein 0.9. He remains on Lovenox, dexamethasone, vitamin supplements. The patient is seen today 12/09/2020 in follow-up on the regular medical floor. He is still on AirVo high flow oxygen at 60 L and 70% FiO2 on with a non rebreather mask. He has been getting progressively weak and less responsive. Hemoglobin today 6.8. He is status post 4 units of packed red blood cells this admission. He did undergo a IVC filter placement yesterday. Urine culture was positive for E. coli and Enterococcus faecalis. Blood cultures revealing no growth. White count 19.8. Platelets 69,000. Sodium 145. Potassium 4.0. BUN 125. Creatinine 3.4. Blood glucose 198. Calcium 5.8. AST 38. ALT 45. He remains on cefepime and Zyvox. He is continued on Decadron, vitamin supplements. Objective - Vital Signs Vital signs: Vital Signs Temp 97.4 F L 12/09/20 09:56 Pulse 86 12/09/20 09:56 Resp 20 12/09/20 09:56 BP 132/66 12/09/20 09:56 Pulse Ox 96 12/09/20 09:56 Intake & Output 12/08/20 12/09/20 12/09/20 18:59 06:59 18:59 Intake Total 20 650 Output Total 700 1000 Balance -680 -350 Weight 85.2 kg Intake: IV 20 Intake, IV Titration 650 Amount Cefepime 1 gm In Sodium 50 Chloride 0.9% 50 ml @ 12. 5 mls/hr IVPB Q12HR MATT Rx#:[id number] Dextrose 5% in Water 1, 600 000 ml @ 50 mls/hr IV . Q23H MATT with Sodium Bicarb (1 Meq/ml) 150 ml Rx#:[id number] Output: Urine 700 1000 Other: Voiding Method Indwelling Catheter Indwelling Catheter Indwelling Catheter - Exam GENERAL EXAM: Arousable, pale, weak 75-year-old gentleman, on AirVo at 60 L and 70% FiO2 along the nonrebreather mask, fairly comfortable in no apparent distress. HEAD: Normocephalic. EYES: Normal reaction of pupils, equal size. NOSE: Clear with pink turbinates. THROAT: No erythema or exudates. NECK: No masses, no JVD. CHEST: No chest wall deformity. LUNGS: Equal air entry with crackles in the bilateral posterior bases. CVS: S1 and S2 normal with no audible murmur, regular rhythm. ABDOMEN: No hepatosplenomegaly, normal bowel sounds, no guarding or rigidity. SPINE: No scoliosis or deformity SKIN: No rashes CENTRAL NERVOUS SYSTEM: No focal deficits, tone is normal in all 4 extremities. EXTREMITIES: There is no peripheral edema. No clubbing, no cyanosis. Peripheral pulses are intact. - Labs CBC & Chem 7: 12/09/20 06:50 12/09/20 06:50 Labs: Abnormal Lab Results - Last 24 Hours (Table) 12/08/20 12/08/20 12/08/20 Range/Units 06:35 20:54 22:27 WBC (4.50-10.00) X 10*3/uL RBC (4.40-5.60) X 10*6/uL Hgb (13.0-17.0) g/dL Hct (39.6-50.0) % MCH (27.0-32.0) pg RDW (11.5-14.5) % Plt Count (140-440) X 10*3/uL Plt Count Comment MPV (9.5-12.2) fL Immature Gran # (0.00-0.04) X 10*3/uL Neutrophils # (1.80-7.70) X 10*3/uL Lymphocytes # (0.90-5.00) X 10*3/uL Eosinophils # (0.04-0.35) X 10*3/uL Immature Plt Fraction (1.1-6.1) % Carbon Dioxide (21.6-31.8) mmol/L Anion Gap 14.50 H (4.00-12.00) mmol/L BUN 145.0 H* (9.0-27.0) mg/dL Creatinine 3.1 H (0.6-1.5) mg/dL Est GFR (CKD-EPI)AfAm 21.8 L (60.0-200.0) Est GFR (CKD-EPI)NonAf 18.8 L (60.0-200.0) BUN/Creatinine Ratio 46.77 H (12.00-20.00) Ratio Glucose (70-110) mg/dL POC Glucose (mg/dL) 65 L 186 H (75-99) mg/dL Calcium 6.4 L* (8.7-10.3) mg/dL AST 37 H (14-35) U/L Total Protein 4.3 L (6.2-8.2) g/dL Albumin 2.70 L (3.80-4.90) g/dL Globulin (1.6-3.3) g/dL 12/09/20 12/09/20 12/09/20 Range/Units 06:50 06:50 07:18 WBC 19.87 H (4.50-10.00) X 10*3/uL RBC 2.08 L (4.40-5.60) X 10*6/uL Hgb 6.8 L* (13.0-17.0) g/dL Hct 19.9 L* (39.6-50.0) % MCH 32.7 H (27.0-32.0) pg RDW 17.0 H (11.5-14.5) % Plt Count 69 L (140-440) X 10*3/uL Plt Count Comment DECREASED A MPV 13.0 H (9.5-12.2) fL Immature Gran # 0.14 H (0.00-0.04) X 10*3/uL Neutrophils # 18.65 H (1.80-7.70) X 10*3/uL Lymphocytes # 0.42 L (0.90-5.00) X 10*3/uL Eosinophils # 0.03 L (0.04-0.35) X 10*3/uL Immature Plt Fraction 7.1 H (1.1-6.1) % Carbon Dioxide 31.9 H (21.6-31.8) mmol/L Anion Gap 12.10 H (4.00-12.00) mmol/L BUN 125.0 H* (9.0-27.0) mg/dL Creatinine 3.4 H (0.6-1.5) mg/dL Est GFR (CKD-EPI)AfAm 19.5 L (60.0-200.0) Est GFR (CKD-EPI)NonAf 16.8 L (60.0-200.0) BUN/Creatinine Ratio 36.76 H (12.00-20.00) Ratio Glucose 198 H (70-110) mg/dL POC Glucose (mg/dL) 70 L (75-99) mg/dL Calcium 5.8 L* (8.7-10.3) mg/dL AST 38 H (14-35) U/L Total Protein 3.8 L (6.2-8.2) g/dL Albumin 2.50 L (3.80-4.90) g/dL Globulin 1.3 L (1.6-3.3) g/dL 12/09/20 12/09/20 Range/Units 08:28 08:49 WBC (4.50-10.00) X 10*3/uL RBC (4.40-5.60) X 10*6/uL Hgb (13.0-17.0) g/dL Hct (39.6-50.0) % MCH (27.0-32.0) pg RDW (11.5-14.5) % Plt Count (140-440) X 10*3/uL Plt Count Comment MPV (9.5-12.2) fL Immature Gran # (0.00-0.04) X 10*3/uL Neutrophils # (1.80-7.70) X 10*3/uL Lymphocytes # (0.90-5.00) X 10*3/uL Eosinophils # (0.04-0.35) X 10*3/uL Immature Plt Fraction (1.1-6.1) % Carbon Dioxide (21.6-31.8) mmol/L Anion Gap (4.00-12.00) mmol/L BUN (9.0-27.0) mg/dL Creatinine (0.6-1.5) mg/dL Est GFR (CKD-EPI)AfAm (60.0-200.0) Est GFR (CKD-EPI)NonAf (60.0-200.0) BUN/Creatinine Ratio (12.00-20.00) Ratio Glucose (70-110) mg/dL POC Glucose (mg/dL) 64 L 202 H (75-99) mg/dL Calcium (8.7-10.3) mg/dL AST (14-35) U/L Total Protein (6.2-8.2) g/dL Albumin (3.80-4.90) g/dL Globulin (1.6-3.3) g/dL Microbiology - Last 24 Hours (Table) 12/05/20 02:27 Blood Culture - Preliminary Blood No Growth after 96 hours 12/03/20 13:07 Blood Culture - Preliminary Blood No Growth after 120 hours Assessment and Plan Assessment: 1 Acute COVID 19 related pneumonia with secondary shortness of breath and hypoxic respiratory failure the patient's symptoms of generalized weakness and dehydration, currently on 4 L of oxygen by nasal cannula, patient was started on Remdesivir on 11/20/2020, Toci on 11/29/2020 2 Acute hypoxic respiratory failure currently on AirVo at 60 L and 70% FiO2 along with a nonrebreather mask 3 Acute anemia with a current hemoglobin of 6.8. 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 Fenton Hemoglobin 6.8 and today status post 4 units packed red blood cells this admission He did have a IVC filter placed yesterday Overall prognosis is quite poor His is at the bedside and has made him a DO NOT RESUSCITATE/DO NOT INTUBATE CODE STATUS Titrate the FiO2 as tolerated May require hospice/comfort care I, the cosigning physician, performed a history & physical examination of the patient. Lungs sounds crackles in the bilateral posterior bases. Maintaining O2 saturations in the 90s on AirVo 60 L and 70% FiO2. I discussed the assessment and plan of care with my nurse practitioner, Abigail Brennan. I attest to the above note as dictated by her.
[2020-12-09] MEDS: DEXTROSE 5% IN WATER 1,000 ML with SODIUM BICARB (1 MEQ/ML) 150 ML IV SCH (13:58)
[2020-12-09] MEDS: FERROUS SULFATE 325 MG TAB PO SCH ×2 (13:59→17:16)
[2020-12-09] MEDS: DEXTROSE 5% IN WATER 1,000 ML IV SCH (14:00)
--- NOTE | 2020-12-09 15:57 | P.PN ---
Subjective Progress Note Date: 12/09/20 Principal diagnosis: CHIEF COMPLAINT: Inadequate protein intake HISTORY OF PRESENT ILLNESS: The patient is a 75 year old male with COVID pneumonia. He has global decline in the last 72 hours including air mask type BiPAP. He is less alert. No pain. Hgb did decline again less than 7.0 in setting of patient with heart disease. Also request of feeding tube per medicine is being requested. He also had recent green field filter placement for LLE DVT. Patient has less oral intake. He has uremia with chronic kidney disease. REVIEW OF ORGAN SYSTEMS: Has shortness of breath. More lethargic. Decreased mentation. PHYSICAL EXAM: VITALS: Reviewed CONSTITUTIONAL: Well developed and in no acute distress. EYES: Conjuctivae without sclera icterus. Extraocular movements grossly intact. HEAD, EARS, NOSE, THROAT: dry buccal mucosa. Head is atraumatic, normocephalic. Hears conversational speech. RESPIRATORY: Labored respirations and equal bilateral excursions. No gross wheezes. CARDIOVASCULAR: Regular rate and rhythm. Extremities without moderate edema. Palpable 2+ radial pulses. ABDOMEN: No peritonitis. NEUROLOGIC: Cranial nerves II through XII grossly intact. No focal or lateralizing signs. PSYCH: Has lethargy. CLINCAL LABS: Reviewed. Platelets low 60s with retroperitoneal bleeding and decline in Hgb. ASSESSMENT: 1. Acute blood loss anemia 2. Uremia 3. Thrombocytopenia 4. Inadequate oral intake PLAN: 1. His platelets has poor quality with uremia depite prior adjuncts such as DDVAP. Platelets ordered in setting of large retroperitoneal bleed and persistent decline in platelets incluing uremia from dysfunctional platelets 2. Patient is very high surgical risk with bleeding including from the stomach. Dobhoff placement may be of benefit. Objective - Vital Signs Vital signs: Vital Signs Temp 97.4 F L 12/09/20 09:56 Pulse 78 12/09/20 14:00 Resp 22 12/09/20 14:00 BP 138/65 12/09/20 14:00 Pulse Ox 91 L 12/09/20 14:00 Intake & Output 12/08/20 12/09/20 12/09/20 18:59 06:59 18:59 Intake Total 20 650 Output Total 700 1000 Balance -680 -350 Weight 85.2 kg Intake: IV 20 Intake, IV Titration 650 Amount Cefepime 1 gm In Sodium 50 Chloride 0.9% 50 ml @ 12. 5 mls/hr IVPB Q12HR MATT Rx#:[id number] Dextrose 5% in Water 1, 600 000 ml @ 50 mls/hr IV . Q23H MATT with Sodium Bicarb (1 Meq/ml) 150 ml Rx#:[id number] Output: Urine 700 1000 Other: Voiding Method Indwelling Catheter Indwelling Catheter Indwelling Catheter - Labs CBC & Chem 7: 12/16/20 06:59 12/18/20 07:14 Labs: Abnormal Lab Results - Last 24 Hours (Table) 12/08/20 12/08/20 12/08/20 Range/Units 06:35 20:54 22:27 WBC (4.50-10.00) X 10*3/uL RBC (4.40-5.60) X 10*6/uL Hgb (13.0-17.0) g/dL Hct (39.6-50.0) % MCH (27.0-32.0) pg RDW (11.5-14.5) % Plt Count (140-440) X 10*3/uL Plt Count Comment MPV (9.5-12.2) fL Immature Gran # (0.00-0.04) X 10*3/uL Neutrophils # (1.80-7.70) X 10*3/uL Lymphocytes # (0.90-5.00) X 10*3/uL Eosinophils # (0.04-0.35) X 10*3/uL Immature Plt Fraction (1.1-6.1) % Carbon Dioxide (21.6-31.8) mmol/L Anion Gap 14.50 H (4.00-12.00) mmol/L BUN 145.0 H* (9.0-27.0) mg/dL Creatinine 3.1 H (0.6-1.5) mg/dL Est GFR (CKD-EPI)AfAm 21.8 L (60.0-200.0) Est GFR (CKD-EPI)NonAf 18.8 L (60.0-200.0) BUN/Creatinine Ratio 46.77 H (12.00-20.00) Ratio Glucose (70-110) mg/dL POC Glucose (mg/dL) 65 L 186 H (75-99) mg/dL Calcium 6.4 L* (8.7-10.3) mg/dL AST 37 H (14-35) U/L Total Protein 4.3 L (6.2-8.2) g/dL Albumin 2.70 L (3.80-4.90) g/dL Globulin (1.6-3.3) g/dL 12/09/20 12/09/20 12/09/20 Range/Units 06:50 06:50 07:18 WBC 19.87 H (4.50-10.00) X 10*3/uL RBC 2.08 L (4.40-5.60) X 10*6/uL Hgb 6.8 L* (13.0-17.0) g/dL Hct 19.9 L* (39.6-50.0) % MCH 32.7 H (27.0-32.0) pg RDW 17.0 H (11.5-14.5) % Plt Count 69 L (140-440) X 10*3/uL Plt Count Comment DECREASED A MPV 13.0 H (9.5-12.2) fL Immature Gran # 0.14 H (0.00-0.04) X 10*3/uL Neutrophils # 18.65 H (1.80-7.70) X 10*3/uL Lymphocytes # 0.42 L (0.90-5.00) X 10*3/uL Eosinophils # 0.03 L (0.04-0.35) X 10*3/uL Immature Plt Fraction 7.1 H (1.1-6.1) % Carbon Dioxide 31.9 H (21.6-31.8) mmol/L Anion Gap 12.10 H (4.00-12.00) mmol/L BUN 125.0 H* (9.0-27.0) mg/dL Creatinine 3.4 H (0.6-1.5) mg/dL Est GFR (CKD-EPI)AfAm 19.5 L (60.0-200.0) Est GFR (CKD-EPI)NonAf 16.8 L (60.0-200.0) BUN/Creatinine Ratio 36.76 H (12.00-20.00) Ratio Glucose 198 H (70-110) mg/dL POC Glucose (mg/dL) 70 L (75-99) mg/dL Calcium 5.8 L* (8.7-10.3) mg/dL AST 38 H (14-35) U/L Total Protein 3.8 L (6.2-8.2) g/dL Albumin 2.50 L (3.80-4.90) g/dL Globulin 1.3 L (1.6-3.3) g/dL 12/09/20 12/09/20 Range/Units 08:28 08:49 WBC (4.50-10.00) X 10*3/uL RBC (4.40-5.60) X 10*6/uL Hgb (13.0-17.0) g/dL Hct (39.6-50.0) % MCH (27.0-32.0) pg RDW (11.5-14.5) % Plt Count (140-440) X 10*3/uL Plt Count Comment MPV (9.5-12.2) fL Immature Gran # (0.00-0.04) X 10*3/uL Neutrophils # (1.80-7.70) X 10*3/uL Lymphocytes # (0.90-5.00) X 10*3/uL Eosinophils # (0.04-0.35) X 10*3/uL Immature Plt Fraction (1.1-6.1) % Carbon Dioxide (21.6-31.8) mmol/L Anion Gap (4.00-12.00) mmol/L BUN (9.0-27.0) mg/dL Creatinine (0.6-1.5) mg/dL Est GFR (CKD-EPI)AfAm (60.0-200.0) Est GFR (CKD-EPI)NonAf (60.0-200.0) BUN/Creatinine Ratio (12.00-20.00) Ratio Glucose (70-110) mg/dL POC Glucose (mg/dL) 64 L 202 H (75-99) mg/dL Calcium (8.7-10.3) mg/dL AST (14-35) U/L Total Protein (6.2-8.2) g/dL Albumin (3.80-4.90) g/dL Globulin (1.6-3.3) g/dL Microbiology - Last 24 Hours (Table) 12/03/20 13:07 Blood Culture - Final Blood No Growth after 144 hours 12/05/20 02:27 Blood Culture - Preliminary Blood No Growth after 96 hours Assessment and Plan (1) Acute on chronic renal failure Status: Acute Priority: High Code(s): N17.9 - ACUTE KIDNEY FAILURE, U NSPECIFIED; N18.9 - CHRONIC KIDNEY DISEASE, UNSPECIFIED SNOMED Code(s): 2 90070457 (2) COVID-19 Status: Acute Code(s): U07.1 - COVID-19 SNOMED Code(s): 629419081 (3) Chronic kidney disease Status: Acute Code(s): N18.9 - CHRONIC KIDNEY DISEASE, UNSPECIFIED SNOMED Code(s): 784630447 (4) DVT (deep venous thrombosis) Status: Acute Priority: High Code(s): I82.409 - ACUTE EMBOLISM AND THOMBOS UNSP DEEP VN UNSP LOWER EXTREMITY SNOMED Code(s): 885105504 (5) Inadequate dietary intake of protein Status: Acute Code(s): E63.9 - NUTRITIONAL DEFICIENCY, UNSPECIFIED SNOMED Code(s): 240789734 (6) Protein calorie malnutrition Status: Acute Code(s): E46 - UNSPECIFIED PROTEIN-CALORIE MALNUTRITION SNOMED Code(s): 546012495 (7) Retroperitoneal hematoma Status: Acute Priority: High Code(s): K66.1 - HEMOPERITONEUM SNOMED Code(s): 431356762 (8) Sepsis Status: Acute Code(s): A41.9 - SEPSIS, UNSPECIFIED ORGANISM SNOMED Code(s): 57120002 (9) Thrombocytopenia Status: Acute Priority: High Code(s): D69.6 - THROMBOCYTOPENIA, UNSPECIFIED SNOMED Code(s): 774396206 (10) Weakness Status: Acute Code(s): R53.1 - WEAKNESS SNOMED Code(s): 16780175
--- NOTE | 2020-12-09 16:03 | PN ---
PROGRESS NOTE DATE OF SERVICE: 12/09/2020 REASON FOR FOLLOWUP: Pneumonia. INTERVAL HISTORY: The patient is currently afebrile. The patient remains to be on a non- rebreather to maintain his sats.the patient is Hemodynamics stable. Not on pressor support. No chest pain or any worsening cough. No abdominal pain. No diarrhea. PHYSICAL EXAMINATION: Blood pressure is 132/65, pulse of 78, temp 97.4. 91% on high-flow oxygen. General description is an elderly male lying in bed in no distress. Respiratory system: Unlabored breathing, clear to auscultation anteriorly. Heart S1, S2. Regular rate and rhythm. Abdomen soft, no tenderness. LABS: Hemoglobin 6.1, white count 19.7, BUN 125, creatinine 3.4. DIAGNOSTIC IMPRESSION AND PLAN: Patient with acute respiratory failure, multifactorial in this patient who did have a component of pneumonia plus minus urinary tract infection. Patient is covered with cefepime and Zyvox. Overall prognosis remains to be guarded. Continue supportive care. MMODL / IJN: [id number] / MTDD
[2020-12-09 17:06] LABS: Glucose,Whole Blood 101 mg/dL (75-99)
--- NOTE | 2020-12-09 17:26 | P.PN ---
Progress Note - Text Progress Note Date: 12/09/20 Chief Complaint: Tired History of presenting complaint: Pleasant 75-year-old patient of Dr. Horta. Chronic stable medical conditions include diabetes, hypothyroid, gout, peripheral neuropathy, diabetic retinopathy, chronic kidney disease, coronary artery disease with a history of bypass and AICD. Patient's is by the bedside who provides most of the history. Patient about 7 days ago on Friday every couple of days before that has started feeling a little bit tired. Motor worse on Friday. Also developed a fever. Decreased appetite diet. Had some diarrhea. Body aches. No loss of smell or taste. Patient did have COVID rapid tested on that was negative. Now becomes short of breath with minimal exertion tired rundown. Patient is tested positive for COVID 19. Initial pulse ox on room air was 98% and then did go down to 94% on 2 L. Admitted with acute bilateral COVID 19 pneumonitis, acute hypoxic respiratory failure, acute myocarditis. Placed on dexamethasone Lovenox. IV Remdesivir. Patient is requiring high flow oxygen. Patient dropped his hemoglobin on the . Receive 2 units of blood. Patient's front of her retroperitoneal bleed. Received a total of 4 units of blood. Left leg DVT-IVC filter placed on December 08 Today: On Airvo/nonrebreather. Poor oral intake. Tired. Patient's is visiting. Review of systems: Was done for constitutional, cardiovascular, GI, pulmonary. relevant finding as above Active Medications Acetaminophen (Acetaminophen Tab 325 Mg Tab) 650 mg PO Q6HR PRN PRN Reason: Fever and/ or Pain Last Admin: 12/06/20 20:49 Dose: 650 mg Documented by: Allopurinol (Allopurinol 100 Mg Tab) 100 mg PO W/SUPPER [facility] Last Admin: 12/08/20 16:34 Dose: Not Given Documented by: Alprazolam (Alprazolam 0.25 Mg Tab) 0.25 mg PO Q8HR PRN PRN Reason: Anxiety Last Admin: 12/08/20 05:29 Dose: 0.25 mg Documented by: Ascorbic Acid (Ascorbic Acid 500 Mg Tab) 500 mg PO BID [facility] Last Admin: 12/09/20 08:26 Dose: Not Given Documented by: Atorvastatin Calcium (Atorvastatin 40 Mg Tab) 40 mg PO HS [facility] Last Admin: 12/08/20 21:18 Dose: Not Given Documented by: Carvedilol (Carvedilol 6.25 Mg Tab) 6.25 mg PO BID-W/MEALS [facility] Last Admin: 12/09/20 08:26 Dose: Not Given Documented by: Cholecalciferol (Cholecalciferol 25 Mcg (1000 Iu) Tablet) 100 mcg PO DAILY [facility] Last Admin: 12/09/20 08:26 Dose: Not Given Documented by: Darbepoetin Rizwan (Darbepoetin Rizwan 40 Mcg/0.4 Ml Syringe) 40 mcg SQ Q7D [facility] Last Admin: 12/05/20 11:29 Dose: 40 mcg Documented by: Desmopressin Acetate (Desmopressin Acetate 4 Mcg/Ml Vial (Mdv)) 1 mcg SQ DAILY [facility] Dexamethasone Sodium Phosphate (Dexamethasone Sod Phosphate 10 Mg/Ml 1 Ml Vial) 6 mg IV DAILY [facility] Last Admin: 12/09/20 08:25 Dose: 6 mg Documented by: Famotidine (Famotidine 20 Mg Tab) 20 mg PO DAILY [facility] Last Admin: 12/09/20 08:26 Dose: Not Given Documented by: Ferrous Sulfate (Ferrous Sulfate 325 Mg Tab) 325 mg PO BID@1200,1800 [facility] Last Admin: 12/09/20 17:16 Dose: Not Given Documented by: Cefepime HCl 1 gm/ Sodium (Chloride) 50 mls @ 12.5 mls/hr IVPB Q12HR [facility] Last Admin: 12/09/20 08:25 Dose: 12.5 mls/hr Documented by: Dextrose/Water (Dextrose 5%-Water Iv Soln) 1,000 mls @ 50 mls/hr IV .Q20H [facility] Last Admin: 12/09/20 14:00 Dose: 50 mls/hr Documented by: Insulin Aspart (Insulin Aspart (Novolog) 100 Unit/Ml Vial) 0 unit SQ ACHS [facility]; Protocol Last Admin: 12/09/20 17:15 Dose: Not Given Documented by: Insulin Detemir (Insulin Detemir (Levemir) 100 Unit/Ml Syr) 35 unit SQ DAILY@0700 [facility] Last Admin: 12/09/20 07:38 Dose: Not Given Documented by: Insulin Detemir (Insulin Detemir (Levemir) 100 Unit/Ml Syr) 35 unit SQ HS [facility] Last Admin: 12/08/20 21:19 Dose: Not Given Documented by: Levothyroxine Sodium (Levothyroxine 100 Mcg Tab) 100 mcg PO 0630 [facility] Last Admin: 12/09/20 03:47 Dose: Not Given Documented by: Linezolid (Linezolid 600 Mg Tab) 600 mg PO Q12HR [facility] Last Admin: 12/09/20 08:26 Dose: Not Given Documented by: Naloxone HCl (Naloxone 0.4 Mg/Ml 1 Ml Vial) 0.2 mg IV Q2M PRN PRN Reason: Opioid Reversal Pantoprazole Sodium (Pantoprazole 40 Mg/10 Ml Vial) 40 mg IVP BID [facility] Last Admin: 12/09/20 08:25 Dose: 40 mg Documented by: Repaglinide (Repaglinide 1 Mg Tab) 0.25 mg PO AC-BID [facility] Last Admin: 12/09/20 17:15 Dose: Not Given Documented by: Tamsulosin HCl (Tamsulosin 0.4 Mg Cap.Er.24h) 0.4 mg PO HS [facility] Last Admin: 12/08/20 21:19 Dose: Not Given Documented by: Zinc Sulfate (Zinc Sulfate 220 Mg Cap) 220 mg PO DAILY [facility] Last Admin: 12/09/20 08:26 Dose: Not Given Documented by: Past medical history to include: Diabetes, hypothyroid, gout, diabetic peripheral neuropathy, diabetic retinopathy, chronic kidney disease stage IV, coronary artery disease with bypass, AICD Social history: No history of smoking or alcohol. . 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 PSYCH: [Alert and oriented x3; mood and affect tired NEUROLOGICAL: Cranial nerves grossly intact; no facial asymmetry, moving all 4 limbs Rest of exam per pulmonary and nursing INVESTIGATIONS, reviewed in the clinical context: December 08: Accu-Cheks 59, 63 Ultrasound Doppler lower extremity bilateral: Acute DVT in the left lower extremity with hyperexpanded material filling the lumen and absent color flow begins in the superficial femoral vein and more prominent findings in the mid and distal sebaceous femoral vein. December 07: WBC 20.04 hemoglobin 7.6 platelets 66 potassium 4.7 creatinine 3.2 bun 154 calcium 6.1 phosphorus 8 Computed tomography scan of abdomen and pelvis: Fairly moderate to large size pelvic retroperitoneal hematoma with local mass effect. Mild cortical thinning in both the kidneys. November 28: WBC 20.6 hemoglobin 6.1 platelets 77 potassium 5 BUN 151 creatinine 3.61 lactic acid 3.1 calcium 5.8 November 27: WBC 5.4 hemoglobin 9.3 potassium 4.8 creatinine 2.2 LDH 687 CRP 1.2 November 21: Potassium 4.8 creatinine 2.7 2-D echocardiogram: EF 50-55% November 20 Potassium 5.1 creatinine 2.85 d-dimer 0.47 CRP 70 WBC 3.2 hemoglobin 9.7 platelets 164 lymphocytes 0.5 sodium 131 potassium 4.8 bun 61 creatinine 3.37 Troponin I 0.073, 0.073, 0.068 albumin 3.2 Urine protein 2+ moderate blood Coronavirus [PCR] detected EKG tracing personally reviewed by me-normal sinus rhythm Chest x-ray film personally reviewed by me-bilateral infiltrates Renal ultrasound-normal Assessment and plan: -Acute bilateral COVID 19 pneumonia. Symptoms started about a week before presentation.-Slow to respond on IV dexamethasone, subcu Lovenox-held, vitamin C vitamin D Pepcid and zinc. November 20 - Remdesivir -Acute hypoxic respiratory failure, secondary to COVID 19 pneumonia: -Worsening Advanced to a Airvo/nonrebreather 60% -Acute myocarditis secondary to COVID 19 Telemetry. watch for arrhythmias. -Acute kidney injury likely ATN from sepsis from COVID 19, hypertension. Improved with IV fluids. -Chronic kidney disease stage IV secondary to diabetic kidney disease. Creatinine 2.17 August 2020 Follow renal function -AICD On telemetry -Coronary artery disease with prior history of carotid bypass Continue with Coreg, Lipitor, aspirin -Hypothyroid Continue with Synthroid -Diabetes mellitus type 2, on oral hypoglycemic, uncontrolled with hyperglycemia Follow Accu-Cheks with sliding scale insulin. Increase Levemir to 28 units at night -Chronic gout Continue with allopurinol -Anemia of chronic kidney disease Follow H&H and continue with erythropoietin -Diabetic retinopathy Follow clinically -Diabetic peripheral neuropathy Follow clinically -Hyponatremia from a relative decrease in solute from decreased appetite- improving Saline IV -Metabolic acidosis due to chronic kidney disease Supplement bicarb -Acute retroperitoneal bleed likely from patient being on Lovenox Lovenox has been on hold. General surgery -weight and watch -Acute severe blood loss anemia from retroperitoneal bleed Patient was received a total of 4 units of blood by today -Acute left lower extremity above-knee DVT-new diagnosis today Care Management Specialist vascular surgery. Patient not a candidate for anticoagulation. IVC filter, cook/la nena -Hyperphosphatemia due to acute on chronic kidney disease -CODE STATUS DO NOT RESUSCITATE Advanced care planning: Care was discussed with the patient and the at the bedside. Oral prognosis guarded. I'd also talked about the same to the yesterday and the patient yesterday. They understand overall guarded prognosis. Plan is to proceed with DO NOT RESUSCITATE status. Patient's is able to take decisions if the patient not able to do so. They also wish to proceed with PEG tube placement. Surgery is only been informed. Options are limited. Discussed with the nurse. At the bedside About 20 minutes was spent for this
[2020-12-09] MEDS: DESMOPRESSIN ACETATE 4 MCG/ML VIAL (MDV) SQ SCH (18:10)
[2020-12-09] MEDS: allopurinoL 100 MG TAB PO SCH (18:10)
[2020-12-09 20:45] LABS: Glucose,Whole Blood 75 mg/dL (75-99)
[2020-12-09] MEDS: ATORVASTATIN 40 MG TAB PO SCH (21:21)
[2020-12-09] MEDS: TAMSULOSIN 0.4 MG CAP.ER.24H PO SCH (21:21)
[2020-12-10] MEDS: LEVOTHYROXINE 100 MCG TAB PO SCH (06:08)
[2020-12-10 07:09] LABS: Glucose,Whole Blood 121 mg/dL (75-99)
[2020-12-10] MEDS: INSULIN DETEMIR (LEVEMIR) 100 UNIT/ML SYR SQ SCH ×2 (08:12→20:52)
[2020-12-10] MEDS: REPAGLINIDE 1 MG TAB PO SCH ×2 (08:13→17:58)
[2020-12-10] MEDS: INSULIN ASPART (NovoLOG) 100 UNIT/ML VIAL SQ SCH ×4 (08:13→21:00)
[2020-12-10] MEDS: ASCORBIC ACID 500 MG TAB PO SCH ×2 (08:13→20:50)
[2020-12-10] MEDS: FAMOTIDINE 20 MG TAB PO SCH (08:13)
[2020-12-10] MEDS: CHOLECALCIFEROL 25 MCG (1000 IU) TABLET PO SCH (08:13)
[2020-12-10] MEDS: carvediloL 6.25 MG TAB PO SCH ×2 (08:13→17:59)
[2020-12-10] MEDS: LINEZOLID 600 MG TAB PO SCH ×2 (08:14→20:50)
[2020-12-10] MEDS: FERROUS SULFATE 325 MG TAB PO SCH ×2 (08:14→17:58)
[2020-12-10] MEDS: DEXAMETHASONE SOD PHOSPHATE 10 MG/ML 1 ML VIAL IV SCH (08:14)
[2020-12-10] MEDS: PANTOPRAZOLE 40 MG/10 ML VIAL IVP SCH ×2 (08:14→20:51)
[2020-12-10] MEDS: ZINC SULFATE 220 MG CAP PO SCH (08:14)
[2020-12-10] MEDS: CEFEPIME 1 GM in SODIUM CHLORIDE 0.9% 50 ML IVPB SCH ×2 (08:15→20:50)
[2020-12-10] MEDS: DESMOPRESSIN ACETATE 4 MCG/ML VIAL (MDV) SQ SCH (08:15)
[2020-12-10 11:12] LABS: African American GFR (CKD) 21 (>60 ml/min/1.73 sqM); Anion Gap 8 mmol/L; Carbon Dioxide 27 mmol/L (22-30); Chloride 105 mmol/L (98-107); Glucose 119 mg/dL (74-99); Non-African American GFR(CKD) 18 (>60 ml/min/1.73 sqM); Potassium 4.9 mmol/L (3.5-5.1); Sodium 140 mmol/L (137-145)
[2020-12-10 11:15] LABS: Anisocytosis Slight; Basophils % (A) 0 %; Eosinophils # (A) 0.2 k/uL (0-0.7); Eosinophils % (A) 1 %; HCT 23.6 % (39.0-53.0); Lymphocytes # (A) 0.1 k/uL (1.0-4.8); Lymphocytes % (A) 1 %; MCHC 34.2 g/dL (31.0-37.0); MCV 93.6 fL (80.0-100.0); Macrocytosis Slight; Mean Platelet Volume 8.8; Monocytes # (A) 0.3 k/uL (0-1.0); Monocytes % (A) 2 %; Neutrophils % (A) 96 %; RBC 2.52 m/uL (4.30-5.90); RDW 18.4 % (11.5-15.5); WBC 16.7 k/uL (3.8-10.6)
[2020-12-10 11:16] LABS: Glucose,Whole Blood 149 mg/dL (75-99)
[2020-12-10 11:18] LABS: Platelet Count 75 k/uL (150-450)
[2020-12-10 11:19] LABS: HGB 8.1 gm/dL (13.0-17.5)
[2020-12-10 12:24] LABS: Blood Urea Nitrogen 119 mg/dL (9-20)
[2020-12-10] MEDS: DEXTROSE 5% IN WATER 1,000 ML IV SCH (12:24)
[2020-12-10 12:26] LABS: Calcium 6.2 mg/dL (8.4-10.2)
--- NOTE | 2020-12-10 14:36 | P.PN ---
Progress Note - Text Progress Note Date: 12/10/20 Chief Complaint: Tired History of presenting complaint: Pleasant 75-year-old patient of Dr. Horta. Chronic stable medical conditions include diabetes, hypothyroid, gout, peripheral neuropathy, diabetic retinopathy, chronic kidney disease, coronary artery disease with a history of bypass and AICD. Patient's is by the bedside who provides most of the history. Patient about 7 days ago on Friday every couple of days before that has started feeling a little bit tired. Motor worse on Friday. Also developed a fever. Decreased appetite diet. Had some diarrhea. Body aches. No loss of smell or taste. Patient did have COVID rapid tested on that was negative. Now becomes short of breath with minimal exertion tired rundown. Patient is tested positive for COVID 19. Initial pulse ox on room air was 98% and then did go down to 94% on 2 L. Admitted with acute bilateral COVID 19 pneumonitis, acute hypoxic respiratory failure, acute myocarditis. Placed on dexamethasone Lovenox. IV Remdesivir. Patient is requiring high flow oxygen. Patient dropped his hemoglobin on the . Receive 2 units of blood. Patient's front of her retroperitoneal bleed. Received a total of 4 units of blood. Left leg DVT-IVC filter placed on December 08 Today: On Airvo/nonrebreather. Poor oral intake. Tired. Lethargic. Review of systems: Was done for constitutional, cardiovascular, GI, pulmonary. relevant finding as above Active Medications Acetaminophen (Acetaminophen Tab 325 Mg Tab) 650 mg PO Q6HR PRN PRN Reason: Fever and/ or Pain Last Admin: 12/06/20 20:49 Dose: 650 mg Documented by: Allopurinol (Allopurinol 100 Mg Tab) 100 mg PO W/SUPPER [facility] Last Admin: 12/09/20 18:10 Dose: Not Given Documented by: Alprazolam (Alprazolam 0.25 Mg Tab) 0.25 mg PO Q8HR PRN PRN Reason: Anxiety Last Admin: 12/08/20 05:29 Dose: 0.25 mg Documented by: Ascorbic Acid (Ascorbic Acid 500 Mg Tab) 500 mg PO BID [facility] Last Admin: 12/10/20 08:13 Dose: Not Given Documented by: Atorvastatin Calcium (Atorvastatin 40 Mg Tab) 40 mg PO HS [facility] Last Admin: 12/09/20 21:21 Dose: 40 mg Documented by: Carvedilol (Carvedilol 6.25 Mg Tab) 6.25 mg PO BID-W/MEALS [facility] Last Admin: 12/10/20 08:13 Dose: Not Given Documented by: Cholecalciferol (Cholecalciferol 25 Mcg (1000 Iu) Tablet) 100 mcg PO DAILY [facility] Last Admin: 12/10/20 08:13 Dose: Not Given Documented by: Darbepoetin Rizwan (Darbepoetin Rizwan 40 Mcg/0.4 Ml Syringe) 40 mcg SQ Q7D [facility] Last Admin: 12/05/20 11:29 Dose: 40 mcg Documented by: Desmopressin Acetate (Desmopressin Acetate 4 Mcg/Ml Vial (Mdv)) 1 mcg SQ DAILY [facility] Last Admin: 12/10/20 08:15 Dose: 1 mcg Documented by: Dexamethasone Sodium Phosphate (Dexamethasone Sod Phosphate 10 Mg/Ml 1 Ml Vial) 6 mg IV DAILY [facility] Last Admin: 12/10/20 08:14 Dose: 6 mg Documented by: Famotidine (Famotidine 20 Mg Tab) 20 mg PO DAILY [facility] Last Admin: 12/10/20 08:13 Dose: Not Given Documented by: Ferrous Sulfate (Ferrous Sulfate 325 Mg Tab) 325 mg PO BID@1200,1800 [facility] Last Admin: 12/10/20 08:14 Dose: Not Given Documented by: Cefepime HCl 1 gm/ Sodium (Chloride) 50 mls @ 12.5 mls/hr IVPB Q12HR [facility] Last Admin: 12/10/20 08:15 Dose: 12.5 mls/hr Documented by: Dextrose/Water (Dextrose 5%-Water Iv Soln) 1,000 mls @ 50 mls/hr IV .Q20H [facility] Last Admin: 12/10/20 12:24 Dose: Not Given Documented by: Insulin Aspart (Insulin Aspart (Novolog) 100 Unit/Ml Vial) 0 unit SQ ACHS [facility]; Protocol Last Admin: 12/10/20 12:28 Dose: Not Given Documented by: Insulin Detemir (Insulin Detemir (Levemir) 100 Unit/Ml Syr) 35 unit SQ DAILY@0700 [facility] Last Admin: 12/10/20 08:12 Dose: Not Given Documented by: Insulin Detemir (Insulin Detemir (Levemir) 100 Unit/Ml Syr) 35 unit SQ HS [facility] Last Admin: 12/09/20 21:21 Dose: Not Given Documented by: Levothyroxine Sodium (Levothyroxine 100 Mcg Tab) 100 mcg PO 0630 [facility] Last Admin: 12/10/20 06:08 Dose: 100 mcg Documented by: Linezolid (Linezolid 600 Mg Tab) 600 mg PO Q12HR [facility] Last Admin: 12/10/20 08:14 Dose: Not Given Documented by: Naloxone HCl (Naloxone 0.4 Mg/Ml 1 Ml Vial) 0.2 mg IV Q2M PRN PRN Reason: Opioid Reversal Pantoprazole Sodium (Pantoprazole 40 Mg/10 Ml Vial) 40 mg IVP BID [facility] Last Admin: 12/10/20 08:14 Dose: 40 mg Documented by: Repaglinide (Repaglinide 1 Mg Tab) 0.25 mg PO AC-BID [facility] Last Admin: 12/10/20 08:13 Dose: Not Given Documented by: Tamsulosin HCl (Tamsulosin 0.4 Mg Cap.Er.24h) 0.4 mg PO [facility] Last Admin: 12/09/20 21:21 Dose: 0.4 mg Documented by: Zinc Sulfate (Zinc Sulfate 220 Mg Cap) 220 mg PO DAILY [facility] Last Admin: 12/10/20 08:14 Dose: Not Given Documented by: Past medical history to include: Diabetes, hypothyroid, gout, diabetic peripheral neuropathy, diabetic retinopathy, chronic kidney disease stage IV, coronary artery disease with bypass, AICD Social history: No history of smoking or alcohol. . 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 PSYCH: [Alert and oriented x3; mood and affect tired NEUROLOGICAL: Cranial nerves grossly intact; no facial asymmetry, moving all 4 limbs Rest of exam per pulmonary and nursing INVESTIGATIONS, reviewed in the clinical context: December 10: WBC 16.7 hemoglobin 8.1 platelets 75 potassium 4.9 creatinine 3.15 bun 119 December 08: Accu-Cheks 59, 63 Ultrasound Doppler lower extremity bilateral: Acute DVT in the left lower extremity with hyperexpanded material filling the lumen and absent color flow begins in the superficial femoral vein and more prominent findings in the mid and distal sebaceous femoral vein. December 07: WBC 20.04 hemoglobin 7.6 platelets 66 potassium 4.7 creatinine 3.2 bun 154 calcium 6.1 phosphorus 8 Computed tomography scan of abdomen and pelvis: Fairly moderate to large size pelvic retroperitoneal hematoma with local mass effect. Mild cortical thinning in both the kidneys. November 28: WBC 20.6 hemoglobin 6.1 platelets 77 potassium 5 BUN 151 creatinine 3.61 lactic acid 3.1 calcium 5.8 November 27: WBC 5.4 hemoglobin 9.3 potassium 4.8 creatinine 2.2 LDH 687 CRP 1.2 November 21: Potassium 4.8 creatinine 2.7 2-D echocardiogram: EF 50-55% November 20 Potassium 5.1 creatinine 2.85 d-dimer 0.47 CRP 70 WBC 3.2 hemoglobin 9.7 platelets 164 lymphocytes 0.5 sodium 131 potassium 4.8 bun 61 creatinine 3.37 Troponin I 0.073, 0.073, 0.068 albumin 3.2 Urine protein 2+ moderate blood Coronavirus [PCR] detected EKG tracing personally reviewed by me-normal sinus rhythm Chest x-ray film personally reviewed by me-bilateral infiltrates Renal ultrasound-normal Assessment and plan: -Acute bilateral COVID 19 pneumonia. Symptoms started about a week before presentation.-Slow to respond on IV dexamethasone, subcu Lovenox-held, vitamin C vitamin D Pepcid and zinc. November 20 - Remdesivir -Acute hypoxic respiratory failure, secondary to COVID 19 pneumonia: -Not improving Advanced to a Airvo/nonrebreather 60% -Acute myocarditis secondary to COVID 19 Telemetry. watch for arrhythmias. -Acute kidney injury likely ATN from sepsis from COVID 19, hypertension.-Slow to respond . IV fluids -Chronic kidney disease stage IV secondary to diabetic kidney disease. Creatinine 2.17 August 2020 Follow renal function -AICD On telemetry -Coronary artery disease with prior history of carotid bypass Continue with Coreg, Lipitor, aspirin -Hypothyroid Continue with Synthroid -Diabetes mellitus type 2, on oral hypoglycemic, uncontrolled with hyperglycemia Follow Accu-Cheks with sliding scale insulin. Increase Levemir to 28 units at night -Chronic gout Continue with allopurinol -Anemia of chronic kidney disease Follow H&H and continue with erythropoietin -Diabetic retinopathy Follow clinically -Diabetic peripheral neuropathy Follow clinically -Hyponatremia from a relative decrease in solute from decreased appetite- improving Saline IV -Metabolic acidosis due to chronic kidney disease Supplement bicarb -Acute retroperitoneal bleed likely from patient being on Lovenox Lovenox has been on hold. General surgery -weight and watch -Acute severe blood loss anemia from retroperitoneal bleed Patient was received a total of 4 units of blood by today -Acute left lower extremity above-knee DVT-new diagnosis today Wardrobe Mistress vascular surgery. Patient not a candidate for anticoagulation. IVC filter, cook/la nena -Hyperphosphatemia due to acute on chronic kidney disease -Thrombocytopenia likely from underlying infection -CODE STATUS DO NOT RESUSCITATE Prognosis guarded. Continue current medication treatment plan. Including a ntibiotics. Decadron.
--- NOTE | 2020-12-10 15:05 | P.PN ---
Subjective Progress Note Date: 12/10/20 Follow-up for acute kidney injury. Currently on Airvo,15 L oxygen Objective - Vital Signs Vital signs: Vital Signs Temp 96.8 F L 12/10/20 14:00 Pulse 83 12/10/20 14:00 Resp 22 12/10/20 14:00 BP 132/77 12/10/20 14:00 Pulse Ox 94 L 12/10/20 14:00 Intake & Output 12/09/20 12/10/20 12/10/20 18:59 06:59 18:59 Intake Total 610 Output Total 800 600 Balance -800 10 Intake: Blood Product 610 Platelet Irr Pheresis Pas 300 -C Unit [id number] Rc Cpda-1 Unit 310 [id number] Output: Urine 800 600 Other: Voiding Method Indwelling Catheter Indwelling Catheter Indwelling Catheter - Exam No acute distress S1-S2 heard Decreased breath sounds Trace edema - Labs CBC & Chem 7: 12/10/20 10:17 12/10/20 10:17 Labs: Abnormal Lab Results - Last 24 Hours (Table) 12/09/20 12/09/20 12/10/20 Range/Units 16:06 17:00 07:07 WBC (3.8-10.6) k/uL RBC (4.30-5.90) m/uL Hgb (13.0-17.5) gm/dL Hct (39.0-53.0) % RDW (11.5-15.5) % Plt Count (150-450) k/uL Neutrophils # (1.3-7.7) k/uL Lymphocytes # (1.0-4.8) k/uL BUN (9-20) mg/dL Creatinine (0.66-1.25) mg/dL Glucose (74-99) mg/dL POC Glucose (mg/dL) 101 H 121 H (75-99) mg/dL Calcium (8.4-10.2) mg/dL Crossmatch See Detail 12/10/20 12/10/20 12/10/20 Range/Units 10:17 10:17 11:12 WBC 16.7 H (3.8-10.6) k/uL RBC 2.52 L (4.30-5.90) m/uL Hgb 8.1 L D (13.0-17.5) gm/dL Hct 23.6 L (39.0-53.0) % RDW 18.4 H (11.5-15.5) % Plt Count 75 L (150-450) k/uL Neutrophils # 16.0 H (1.3-7.7) k/uL Lymphocytes # 0.1 L (1.0-4.8) k/uL BUN 119 H* (9-20) mg/dL Creatinine 3.15 H (0.66-1.25) mg/dL Glucose 119 H (74-99) mg/dL POC Glucose (mg/dL) 149 H (75-99) mg/dL Calcium 6.2 L* (8.4-10.2) mg/dL Crossmatch Microbiology - Last 24 Hours (Table) 12/05/20 02:27 Blood Culture - Preliminary Blood No Growth after 120 hours 12/03/20 13:07 Blood Culture - Final Blood No Growth after 144 hours Assessment and Plan Assessment: #Acute kidney injury secondary to Covid 19 ATN. #2 CK D stage IV secondary to diabetic kidney disease with a baseline creatinine of 2.0 MG per DL. #3 GI bleed #4 DVT status post IVC filter #5 hypokalemia secondary to decreased by mouth intake. #6 hypocalcemia suspect secondary to hyperphosphatemia Plan: #1 Renal function stable. Elevated BUNs suspect secondary to steroids/GI bleed. #2 continue with gentle hydration with D5 water at 50 ML's an hour. #3 no acute indication for [facility] at this time.
--- NOTE | 2020-12-10 15:14 | P.PN ---
Subjective Progress Note Date: 12/10/20 Principal diagnosis: Acute COVID-19 pneumonia Acute COVID-19 pneumonia 75-year-old male patient, started having symptoms approximately a week ago when he started feeling a bit tired and fatigued. He subsequently developed fever and diminished appetite and some diarrhea. The patient tested positive for COVID 19 infection 4 days ago and this was again confirmed on 11/19/2020. The patient came into the emergency with weakness and shortness of breath. The patient is currently on 2 L of oxygen by nasal cannula. He is known to have CAD, previous bypass, aortic, chronic disease, diabetes mellitus and diabetic retinopathy and neuropathy and hypothyroidism and gout. Lactate was 0.7, there d-dimer was 0.6, white cell count was at 3.2 with a lymphopenia, creatinine was at 3.37 with a mean of 61. He is also on multivitamins. Chest x-ray showing diffuse bilateral pulmonary infiltrates. On today's evaluation of 4 [id number] the patient is currently on oxygen at 4 L per minute. The patient is quite comfortable. Pulse ox is around 95% and FiO2 can be obviously weaned off. The patient is being seen for a follow-up. The patient is currently being treated with Decadron 6 mg IV every 24 hours. The patient is also on Lovenox 40 mg subcu daily and the patient is also on Remdesivir day #2. No follow-up chest x-rays available from today. The rest of the labs are showing chronic kidney disease with a creatinine of 2.7. The patient has chronic metabolic acidosis which is of a non-anion gap type. On 11/22/2020 patient seen in follow-up. Is comfortable, still desat easily, feels tired, but no acute distress, today's labs have been reviewed, d-dimer 0.69, CRP is 35.6, no LDH. Has not had a chest x-ray, he is currently on 7 L, his pulse ox is 89%, no fever, remains on Remdesivir, today is day 3 of treatment. On 11/23/2020 patient is pretty stable, he remains on 5 L of oxygen, her pulse ox 89-90%, he is breathing comfortably, no worsening dyspnea, his 0.9, saline at 60 per hour, patient completed Remdesivir treatment, he remains on steroids, and prophylactic Lovenox. No worsening dyspnea, today's labs have been reviewed, d- dimer is 1.90, renal profile is slightly improved from yesterday, patient continues on IV fluids, no nausea vomiting or diarrhea, CRP is trending down, LDH with today is pending. On 11/25/2000 patient seen in follow-up on medical surgical floor, he is sitting up in the chair, appears to be breathing comfortably although his oxygen requirements have increased, and is currently on 15 L per high flow nasal cannula up from 12 L from yesterday, he denies any worsening dyspnea, lung sounds reveal diffuse bilateral crackles, no chest discomfort, no signs of any respiratory distress. No cough, no wheezing, today's chest x-ray shows bilateral mid to lower lung increased opacities, findings consistent with COVID- 19 pneumonia, the findings are stable in appearance. Follow-up inflammatory markers showed d-dimer of 19.16, LDH is up to 2028, CRP is 2.4. Patient has completed his Remdesivir course, she remains on daily dose of Decadron 6 mg, and Lovenox 30 mg daily, his renal function appears to be relatively stable, his bun is 64, and creatinine is 2.12 On 11/26/2020 patient seen in follow-up on medical surgical floor, he sitting up in the chair, he is breathing comfortably, he is currently down to 13 L, and his pulse ox is 90-94%, his been afebrile, overall she looks stable, he does not appear to be in any acute distress, he is a d-dimer has trended up, and on today's labs it is up to 30.3, and his Lovenox dose will be adjusted. Today's inflammatory markers are improving. He remains on daily dose IV Decadron 6 mg daily, Lovenox, multivitamins, and his IV fluids are infusing at a rate of 60 ML per hour, no new chest x-ray today, his kidney function shows slight improvement On 11/27/2000 patient seen in follow-up on medical surgical floor, he remains on high flow oxygen 15 L, and the nonrebreather mask, he does desat when he removes his nonrebreather mask down to 86% however he denies any dyspnea, he does not feel stressed at all, and looks very comfortable, he sitting up in the recliner, awake and alert, oriented 3, he is afebrile, hemodynamically has been stable, he has no specific complaints, and his today's chest x-ray shows cardiomegaly and low lung volumes with bilateral mid to lower lung reticular and confluent opacities consistent with COVID-19 pneumonia with no change from previousexam. Today's labs have been reviewed, white blood cell count is 5.45, hemoglobin is 9.3, no d-dimer today, but yesterday's d-dimer was quite elevated at 30.3, and his Lovenox dose was adjusted and increased to 40 mg twice a day, his electrolyte panel shows CO2 of 28.1, but prostate electrolytes are within normal limits, B1 is 84, creatinine is 2.2, his LDH is down to 687, improving, his CRP is 1.2 on today's labs. He continues on Decadron 6 mg daily, he is on Lovenox 40 mg twice a day, and he is receiving IV hydration at 60 ML per hour, nephrology is following On 11/28/2020 patient seen in follow-up on medical surgical floor, he is resting comfortably in bed, he is currently on 15 L high flow and 100% nonrebreather, he looks quite comfortable, he denies any shortness of breath, minimal cough, he is breathing comfortably, his pro-calcitonin level was low, his inflammatory markers were improving, his d-dimer was elevated on 11/26/2020 patient is on 40 mg of Lovenox twice daily, Lasix is at 40 mg every 12 hours patient is in negative fluid balance. No new chest x-ray today On 11/29/2000 patient seen in follow-up on medical surgical floor, is currently on 15 L per high flow nasal cannula, and 100 nonrebreather mask, and he is satting about 93%, he does not feel short of breath, he seems to be breathing very comfortably, he is afebrile, hemodynamically stable, his chest x-ray today shows low lung volumes with bilateral mid to lower lung reticular and confluent opacities consistent with COVID-19 pneumonia. Findings are similar to his previous chest x-ray, lower extremity Dopplers were completed and he was negative for DVT. His d-dimer is trending down, and is down to 16.0. The rest of his lab work has been reviewed, showing white blood cell count of 8.7, hemoglobin of 10.5, sodium is 136, potassium is 4.5, chloride is 98, BUN of 108, and creatinine is 3.2, his calcitonin level was negative at 0.10, his inflammatory markers were improving since admission. No nausea vomiting or diarrhea, and patient continues on daily dose of IV Decadron 6 mg, continues on Lovenox 40 mg twice daily, she was given a dose of Lasix yesterday and he was started on maintenance dose of IV Lasix On 11/30/2020 patient seen in follow-up on medical surgical floor, he is resting comfortably in bed, currently off the nonrebreather mask, on 15 L per high flow nasal cannula with his pulse ox is 90-91%, he looks very comfortable, breathing comfortably, no worsening dyspnea. Cooperative chest discomfort, no cough. No fever or chills. No acute events overnight, patient did receive 1 dose of Toci yesterday 720 mg, he remains on Lovenox 40 mg twice a day, and daily dose Decadron, today's labs have been reviewed, showing white blood cell, 10.1, hemoglobin of 10.3, d-dimer is trending down, down to 11.4, electrolytes are within normal limits, renal profile shows some improvement, pro-Joshua was negative, inflammatory markers are trending down, patient denies any specific complaints On 12/01/2020 patient seen in follow-up on medical surgical floor, is currently on 15 L per high flow nasal cannula and nonrebreather mask, and his pulse ox is 100%, he is breathing very comfortably, denies any cough, denies any chest pain, has had no fever or chills, no nausea vomiting diarrhea, no abdominal pain, no new chest x-rays, his labs have been reviewed, d-dimer today is 12.5, electroly angel are unremarkable, his renal profile slightly improved, his BUN is 113, and creatinine is 2.59. On 12/02/2020 patient seen in follow-up on medical surgical floor, he is currently back on 11 L of oxygen resting comfortably in bed, in comfortably, in his pulse ox was 99%, we dropped the FiO2 down to 8 L, and we instructed the nursing staff to continue weaning it to maintain O2 saturations at or above 90%, patient has no specific complaints, no cough, no chest discomfort, no fever, no chills no headaches, no nausea vomiting or diarrhea. Renal function continues to be impaired, and nephrology is following, his BUN is 1:30, and creatinine is 2.70, electrolytes were unremarkable on today's labs. No new chest x-ray today. Patient remains on IV Decadron 6 mg, and Lovenox is currently at 40 mg twice daily. Follow-up d-dimer is pending for today. On the 12/04/2020 patient seen in follow-up on medical surgical floor, he is currently on 7 L per high flow nasal cannula, his pulse ox is about 86-95%, although she looks very pale, his hemoglobin today is down to 6.0 and patient has not had any obvious bleeding, no hematemesis, no melena, abdomen is soft, no abdominal pain, he is a bit drowsy, he is mildly short of breath but does not appear to be in any acute distress, he was also found to be hypothermic, and appear hugger was applied, he received a unit of packed red blood cells, on in the 2 units are pending for transfusion today, today's labs have been reviewed, his white count is 23.6, his platelet count is down to 93,000, his neutrophil count is 21.5, a remains lymphopenic as well, and lymphocyte count is 0.48, serum sodium is 131, potassium is 5.0, chloride is 106, CO2 is 15, creatinine is 148, and creatinine of 3.36, serum calcium is 5.9, his last LDH from 12/03/2020 was 1654, and CRP was 0.9, CA urinalysis was sent and there is possibility of urinary tract infection with the large amounts of leukocytes esterase, white blood cells and white blood cells in clumps and many bacteria. Patient was started on cefepime, and Zyvox, ID service is following. Patient was increasingly more acidotic and he was given 1 puff sodium bicarbonates IV push, and was started on D5W with 3 A of bicarbonate at a rate of 50 ML per hour. No nausea vomiting or diarrhea. He received a dose of vancomycin yesterday, and vancomycin is being adjusted per pharmacy. Blood cultures are negative thus far On 12/05/2020 patient seen in follow-up on medical surgical floor. He is breat carla comfortably, he is resting in bed, he continues to require a bear hugger his current temp is currently 96.3 degrees utilizing a temporal artery. No obvious bleeding, patient is passing dark stools, however he also takes iron supplements, and the nurse states his stools are not obviously black and tarry, no hematemesis, abdomen is soft, no hematuria. No altered mentation, he is awake and alert, he is answering questions appropriately, he denies any worsening dyspnea, urine and blood cultures have been sent and are pending at this time, and patient is currently covered with cefepime, and Zyvox. Patient received 2 A of sodium bicarbonate this morning. Today's labs show a white blood cell count of 25.1, hemoglobin of 7.5, sodium is 132, potassium is 5.6, CO2 was 14, BUN was 156, creatinine is 3.49, lactic acid was 2.6, pro-calcitonin level is low at 0.28. Urinalysis suggest possibility of urinary tract infection. On 12/06/2020 patient seen in follow-up on medical surgical floor, he is resting quietly in bed, he still on high flow oxygen, currently at 15 L, his pulse ox is 94%, he states he is tired and sleepy, his hemoglobin is down to 6.1 today and again there is no clear evidence of bleeding, abdomen is soft, no hematemesis, no melena, patient is being transfused with 1 unit of packed red blood cells this morning, his white blood cell count was 20.6, his platelet count is 77, his anticoagulation has been on hold for last 48 hours, his BUN is up to 151, creatinine is 3.61. Plasma lactic acid was 3.1, patient is on antibiotics for possibility of sepsis, likely related to urinary tract infection, his urine culture showing gram-negative bacilli, fungal cultures pending, blood cultures have shown no growth. She remains on Decadron, and he is on cefepime and Zyvox. He received some fluid boluses 500 at 9:00 last night, and another 500 mL fluid bolus in the morning, she remains on D5W with 3 units of bicarbonate at a rate of 50 ML per hour. Nephrology is following. GI service has been consulted and CT of the demented pelvis are pending at this time On 12/07/2020 patient seen in follow-up on medical surgical floor, he is awake and alert, he looks better today, more awake, on today's exam, denies any worsening dyspnea, he is currently on 13 L of oxygen his pulse ox is 93%, his hemoglobin today is 7.6, patient 2 units of packed red blood cells yesterday and 2 units the day prior. His CT of the abdomen showed evidence of fairly moderate to large size left pelvic retroperitoneal hematoma with local mass effect, suggesting subacute possible acute on chronic etiology. Surgery was consulted and recommended conservative treatment. Patient has been off all anticoagulation, in his left leg on today's exam is quite large and swollen and for that reason lower extremity Doppler was obtained revealing acute DVT in the left leg. Resting blood work has been reviewed showing white blood cell count still elevated at 20.04, hemoglobin is 7.6 as mentioned above, platelet count is 66, today's d-dimer is 6.06 resting blood work is still pending. Hematology is following. Patient was also found to be septic, cultures showed Enterococcus faecalis, and patient is on a combination of cefepime and Zyvox, ID service is following. Appetite is poor, but his had no nausea vomiting or diarrhea, he is currently on D5W with 3 A of bicarbonate at a rate of 50 ML per hour. On 12/10/2020 patient seen in follow-up on medical surgical floor. Patient is very drowsy, he is poorly responsive, he remains on high flow oxygen at 60 L, and FiO2 of 78% in addition to nonrebreather mask, his pulse ox is around 90- 91%, he is on D5W at a rate of 50 ML per hour, as been hypothermic, with a temp as low as 95.6F, does not appear to be in any acute respiratory distress, however overall she seems quite debilitated, very weak and fatigued, he has not been eating. Overall his condition has been declining, patient is been maintained on steroids, his anticoagulation was placed on hold related to retroperitoneal bleeding, and patient required transfusions with blood, he then developed a DVT in his left lower extremity however in view of his bleeding he was not able to go back on anticoagulants and IVC filter was placed. Today's hemoglobin is 8.1, yesterday he received 1 more unit of blood for a hemoglobin of 6.8, and a unit of platelets. The platelet count was 69, and 75 on today's labs. No abdominal pain. Patient continues on cefepime and Zyvox, his urine culture was positive for E. coli and Enterococcus faecalis, blood cultures were negative Objective - Vital Signs Vital signs: Vital Signs Temp 96.8 F L 12/10/20 14:00 Pulse 83 12/10/20 14:00 Resp 22 12/10/20 14:00 BP 132/77 12/10/20 14:00 Pulse Ox 94 L 12/10/20 14:00 Intake & Output 12/09/20 12/10/20 12/10/20 18:59 06:59 18:59 Intake Total 610 Output Total 800 600 Balance -800 10 Intake: Blood Product 610 Platelet Irr Pheresis Pas 300 -C Unit [id number] Rc Cpda-1 Unit 310 [id number] Output: Urine 800 600 Other: Voiding Method Indwelling Catheter Indwelling Catheter Indwelling Catheter - Exam GENERAL EXAM: 75-year-old white male, pale, currently on Airvo at 60 l, fio2 78%, very weak, lethargic, poorly responsive, pale HEAD: Normocephalic/atraumatic. EYES: Normal reaction of pupils, equal size. Conjunctiva pink, sclera white. NOSE: Clear with pink turbinates. THROAT: No erythema or exudates. NECK: No masses, no JVD, no thyroid enlargement, no adenopathy. CHEST: No chest wall deformity. Symmetrical expansion. LUNGS: Equal air entry with bilateral crackles CVS: Regular rate and rhythm, normal S1 and S2, no gallops, no murmurs, no rubs ABDOMEN: Soft, nontender. No hepatosplenomegaly, normal bowel sounds, no guarding or rigidity. EXTREMITIES: No clubbing, left leg is quite swollen, and tight, with suspicion of DVT no cyanosis, 2+ pulses and upper and lower extremities. MUSCULOSKELETAL: Muscle strength and tone normal. SPINE: No scoliosis or deformity SKIN: No rashes CENTRAL NERVOUS SYSTEM: Weak and lethargic, on high flow oxygen per Airvo. No focal deficits, tone is normal in all 4 extremities. - Labs CBC & Chem 7: 12/10/20 10:17 12/10/20 10:17 Labs: Abnormal Lab Results - Last 24 Hours (Table) 12/09/20 12/09/20 12/10/20 Range/Units 16:06 17:00 07:07 WBC (3.8-10.6) k/uL RBC (4.30-5.90) m/uL Hgb (13.0-17.5) gm/dL Hct (39.0-53.0) % RDW (11.5-15.5) % Plt Count (150-450) k/uL Neutrophils # (1.3-7.7) k/uL Lymphocytes # (1.0-4.8) k/uL BUN (9-20) mg/dL Creatinine (0.66-1.25) mg/dL Glucose (74-99) mg/dL POC Glucose (mg/dL) 101 H 121 H (75-99) mg/dL Calcium (8.4-10.2) mg/dL Crossmatch See Detail 12/10/20 12/10/20 12/10/20 Range/Units 10:17 10:17 11:12 WBC 16.7 H (3.8-10.6) k/uL RBC 2.52 L (4.30-5.90) m/uL Hgb 8.1 L D (13.0-17.5) gm/dL Hct 23.6 L (39.0-53.0) % RDW 18.4 H (11.5-15.5) % Plt Count 75 L (150-450) k/uL Neutrophils # 16.0 H (1.3-7.7) k/uL Lymphocytes # 0.1 L (1.0-4.8) k/uL BUN 119 H* (9-20) mg/dL Creatinine 3.15 H (0.66-1.25) mg/dL Glucose 119 H (74-99) mg/dL POC Glucose (mg/dL) 149 H (75-99) mg/dL Calcium 6.2 L* (8.4-10.2) mg/dL Crossmatch Microbiology - Last 24 Hours (Table) 12/05/20 02:27 Blood Culture - Preliminary Blood No Growth after 120 hours 12/03/20 13:07 Blood Culture - Final Blood No Growth after 144 hours Assessment and Plan Plan: Assessment: #1. acute COVID 19 related pneumonia with secondary shortness of breath and hypoxic respiratory failure the patient's symptoms of generalized weakness and dehydration, currently on 4 L of oxygen by nasal cannula, patient was started on Remdesivir on 11/20/2020, Toci on 11/29/2020. Despite treatment patient's hypoxic respiratory failure has progressed, currently on Airvo #2. acute hypoxic respiratory failure #3. Acute blood loss anemia, related to large retroperitoneal hematoma #4. Acute urinary tract infection with sepsis, related to enterococcus faecalis, and E. coli #5. Hypothermia possibly related to sepsis, improved #6. Coronary artery disease with previous positive bypass surgery #7. Mild troponin leak, could be related to Covid 19 infection #8. History of AICD placement #9. Hypothyroidism #10. Diabetes mellitus with diabetic retinopathy #11. 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 Gout #13. Anemia of chronic disease #14. Hypothyroidism #15. Acute kidney injury #16. Acute left lower extremity DVT, and patient has a recent history of retroperitoneal bleeding, post IVC filter placement Plan: Patient remains on high flow oxygen Level of consciousness is poor, patient is poorly responsive Hypothermic Continues on antibiotics for urinary tract infection related to E. coli and enterococcus Required another blood transfusion and platelet transfusion yesterday Overall generally continues to decline Patient's own wishes were for no resuscitation At this point patient is deteriorating despite medical treatment Patient's is coming in this afternoon, and we're told by the nursing staff that the family wishes to make him comfortable at this point From pulmonary perspective, hospice/palliative care is appropriate for this patient, whose prognosis is quite poor and he is unlikely to survive this illness From pulmonary perspective we can proceed with comfort care when the patient's family is ready for it and requests it I performed a history & physical examination of the patient and discussed their management with my nurse practitioner, Iza Mccarthy. I reviewed the nurse practitioner's note and agree with the documented findings and plan of care. Lung sounds are positive for bibasilar crackles. The findings and the impression was discussed with the patient. I attest to the documentation by the nurse practitioner. Time with Patient: Less than 30
[2020-12-10 16:41] LABS: Glucose,Whole Blood 188 mg/dL (75-99)
--- NOTE | 2020-12-10 17:21 | P.PN ---
Subjective Progress Note Date: 12/10/20 Principal diagnosis: CHIEF COMPLAINT: Retroperitoneal hematoma HISTORY OF PRESENT ILLNESS: The patient is a 75 year old male with COVID pneumonia. He has persistent global decline. Platelets was ordered due to persistent drop in hemoglobin with source of retroperitoneal bleeding. REVIEW OF ORGAN SYSTEMS: Has shortness of breath. More lethargic. PHYSICAL EXAM: VITALS: Reviewed CONSTITUTIONAL: Well developed and in no acute distress. EYES: Conjuctivae without sclera icterus. Extraocular movements grossly intact. HEAD, EARS, NOSE, THROAT: dry buccal mucosa. Head is atraumatic, normocephalic. Hears conversational speech. RESPIRATORY: Labored respirations and equal bilateral excursions. No gross wheezes. CARDIOVASCULAR: Regular rate and rhythm. Extremities without moderate edema. Palpable 2+ radial pulses. ABDOMEN: No peritonitis. NEUROLOGIC: Cranial nerves II through XII grossly intact. No focal or lateralizing signs. PSYCH: Has lethargy. CLINCAL LABS: Reviewed. Platelets low 60s with retroperitoneal bleeding and decline in Hgb. ASSESSMENT: 1. Acute blood loss anemia 2. Uremia 3. Thrombocytopenia 4. Inadequate oral intake PLAN: 1. Patient's extremely high risk. Will need more platelets prior to procedure. Objective - Vital Signs Vital signs: Vital Signs Temp 96.8 F L 12/10/20 14:00 Pulse 83 12/10/20 14:00 Resp 22 12/10/20 14:00 BP 132/77 12/10/20 14:00 Pulse Ox 90 L 12/10/20 15:24 Intake & Output 12/09/20 12/10/20 12/10/20 18:59 06:59 18:59 Intake Total 610 Output Total 800 600 Balance -800 10 Intake: Blood Product 610 Platelet Irr Pheresis Pas 300 -C Unit [id number] Rc Cpda-1 Unit 310 [id number] Output: Urine 800 600 Other: Voiding Method Indwelling Catheter Indwelling Catheter Indwelling Catheter - Labs CBC & Chem 7: 12/16/20 06:59 12/18/20 07:14 Labs: Abnormal Lab Results - Last 24 Hours (Table) 12/09/20 12/10/20 12/10/20 Range/Units 16:06 07:07 10:17 WBC 16.7 H (3.8-10.6) k/uL RBC 2.52 L (4.30-5.90) m/uL Hgb 8.1 L D (13.0-17.5) gm/dL Hct 23.6 L (39.0-53.0) % RDW 18.4 H (11.5-15.5) % Plt Count 75 L (150-450) k/uL Neutrophils # 16.0 H (1.3-7.7) k/uL Lymphocytes # 0.1 L (1.0-4.8) k/uL BUN (9-20) mg/dL Creatinine (0.66-1.25) mg/dL Glucose (74-99) mg/dL POC Glucose (mg/dL) 121 H (75-99) mg/dL Calcium (8.4-10.2) mg/dL Crossmatch See Detail 12/10/20 12/10/20 12/10/20 Range/Units 10:17 11:12 16:37 WBC (3.8-10.6) k/uL RBC (4.30-5.90) m/uL Hgb (13.0-17.5) gm/dL Hct (39.0-53.0) % RDW (11.5-15.5) % Plt Count (150-450) k/uL Neutrophils # (1.3-7.7) k/uL Lymphocytes # (1.0-4.8) k/uL BUN 119 H* (9-20) mg/dL Creatinine 3.15 H (0.66-1.25) mg/dL Glucose 119 H (74-99) mg/dL POC Glucose (mg/dL) 149 H 188 H (75-99) mg/dL Calcium 6.2 L* (8.4-10.2) mg/dL Crossmatch Microbiology - Last 24 Hours (Table) 12/05/20 02:27 Blood Culture - Preliminary Blood No Growth after 120 hours 12/03/20 13:07 Blood Culture - Final Blood No Growth after 144 hours
[2020-12-10] MEDS: allopurinoL 100 MG TAB PO SCH (17:59)
[2020-12-10 20:29] LABS: Glucose,Whole Blood 305 mg/dL (75-99)
[2020-12-10] MEDS: TAMSULOSIN 0.4 MG CAP.ER.24H PO SCH (20:50)
[2020-12-10] MEDS: ATORVASTATIN 40 MG TAB PO SCH (20:50)
[2020-12-11] MEDS: DEXTROSE 5% IN WATER 1,000 ML IV SCH (04:02)
--- NOTE | 2020-12-11 05:16 | PN ---
PROGRESS NOTE DATE OF SERVICE: 12/10/2020 REASON FOR FOLLOWUP: Pneumonia. INTERVAL HISTORY: The patient is afebrile. The patient remains to be on non-rebreather. However, denies any worsening shortness of breath. No chest pain. Occasional cough. No abdominal pain and no diarrhea reported. PHYSICAL EXAMINATION: Blood pressure 143/80 with a pulse of 83, temperature. He is 92% on room air. General description is an elderly male lying in bed in no distress. Respiratory system: Unlabored breathing, clear to auscultation anteriorly. Heart S1, S2. Regular rate. ABDOMEN: Soft, no tenderness. EXTREMITIES: No edema of the feet. LABS: White count down to 16.7. BUN is 119, creatinine 3.1. DIAGNOSTIC IMPRESSION AND PLAN: Patient with acute respiratory failure which is multifactorial in this patient who did have a initial component of COVID-19 pneumonia with subsequent worsening sepsis. Concern for possible secondary bacterial. Patient is covered with cefepime and Zyvox with minimal improvement. Continue current antibiotics and monitor clinical course closely. MMODL / IJN: [id number] /
[2020-12-11] MEDS: LEVOTHYROXINE 100 MCG TAB PO SCH (05:35)
[2020-12-11 07:11] LABS: Glucose,Whole Blood 209 mg/dL (75-99)
[2020-12-11] MEDS: DESMOPRESSIN ACETATE 4 MCG/ML VIAL (MDV) SQ SCH (07:57)
[2020-12-11] MEDS: PANTOPRAZOLE 40 MG/10 ML VIAL IVP SCH ×2 (07:57→20:41)
[2020-12-11] MEDS: DEXAMETHASONE SOD PHOSPHATE 10 MG/ML 1 ML VIAL IV SCH (07:57)
[2020-12-11] MEDS: LINEZOLID 600 MG TAB PO SCH ×2 (07:58→21:31)
[2020-12-11] MEDS: CHOLECALCIFEROL 25 MCG (1000 IU) TABLET PO SCH (07:58)
[2020-12-11] MEDS: ZINC SULFATE 220 MG CAP PO SCH (07:59)
[2020-12-11] MEDS: INSULIN DETEMIR (LEVEMIR) 100 UNIT/ML SYR SQ SCH ×2 (07:59→21:31)
[2020-12-11] MEDS: FAMOTIDINE 20 MG TAB PO SCH (07:59)
[2020-12-11] MEDS: FERROUS SULFATE 325 MG TAB PO SCH ×2 (07:59→16:51)
[2020-12-11] MEDS: INSULIN ASPART (NovoLOG) 100 UNIT/ML VIAL SQ SCH ×4 (07:59→21:31)
[2020-12-11] MEDS: ASCORBIC ACID 500 MG TAB PO SCH ×2 (07:59→20:41)
[2020-12-11] MEDS: carvediloL 6.25 MG TAB PO SCH ×2 (07:59→16:51)
[2020-12-11] MEDS: REPAGLINIDE 1 MG TAB PO SCH ×2 (07:59→16:51)
[2020-12-11] MEDS: CEFEPIME 1 GM in SODIUM CHLORIDE 0.9% 50 ML IVPB SCH ×2 (08:00→20:41)
[2020-12-11 09:06] LABS: Methylmalonic Acid 0.36 umol/L (<0.40)
[2020-12-11 12:04] LABS: Glucose,Whole Blood 233 mg/dL (75-99)
--- NOTE | 2020-12-11 12:48 | P.PN ---
<Namrata Odell - Last Filed: 12/11/20 12:38> Subjective Progress Note Date: 12/11/20 CHIEF COMPLAINT: COVID-19 pneumonia HISTORY OF PRESENT ILLNESS: The patient is a 75 year old male with COVID pneumonia. Surgical service is following in regards to patient's retroperitoneal hematoma. Patient denies any abdominal pain. Denies any back pain. Patient is lethargic. He has persistent global decline. Afebrile. He is requiring high flow oxygen. He has received blood transfusions and platelet transfusion during this admission as well as a DDAVP and Aranesp. Patient continues to have poor oral intake. Noted that family has requested a hospice meeting. No new labs for today PHYSICAL EXAM: VITAL SIGNS: Reviewed GENERAL: Well-developed in no acute distress. HEENT: No sclera icterus. Extraocular movements grossly intact. Moist buccal mucosa. Head is atraumatic, normocephalic. Hears conversational speech. No nasal drainage. NECK: Supple without lymphadenopathy. CHEST: Non-labored respirations and equal bilateral excursions. CARDIOVASCULAR: Palpable 2+ radial pulses. ABDOMEN: Soft. Nondistended. Nontender. MUSCULOSKELETAL: No clubbing or cyanosis. NEUROLOGIC: No focal or lateralizing signs. Cranial nerves II through XII grossly intact. PSYCH: Lethargic SKIN: Well perfused. Good skin turgor. ASSESSMENT: 1. Retroperitoneal hematoma 2. Acute blood loss anemia secondary to Retroperitoneal bleed 3. COVID-19 pneumonia 4. Acute hypoxic respiratory failure secondary to COVID-19 pneumonia 5. Acute myocarditis 6. Acute kidney injury followed by nephrology 7. Chronic kidney disease stage IV 8. History of AICD 9. History of diabetes mellitus type 2 10. Thrombocytopenia 11. Acute left lower extremity DVT status post IVC filter placement PLAN: -No surgical intervention planned for the retroperitoneal hematoma -We'll continue to observe patient -For nutrition support recommend noninvasive treatment such as TPN or Dobbhoff placement. Physician Drive Man note has been reviewed by physician. Signing provider agrees with the documented findings, assessment, and plan of care. Objective - Vital Signs Vital signs: Vital Signs Temp 97.6 F 12/11/20 09:36 Pulse 84 12/11/20 09:36 Resp 20 12/11/20 09:36 BP 137/54 12/11/20 09:36 Pulse Ox 90 L 12/11/20 09:36 Intake & Output 12/10/20 12/11/20 12/11/20 18:59 06:59 18:59 Intake Total 80 420 Output Total 800 750 Balance -800 -670 420 Intake: Oral 80 420 Output: Urine 800 750 Other: Voiding Method Indwelling Catheter Indwelling Catheter Indwelling Catheter - Labs CBC & Chem 7: 12/10/20 10:17 12/10/20 10:17 Labs: Abnormal Lab Results - Last 24 Hours (Table) 12/10/20 12/10/20 12/11/20 Range/Units 16:37 20:15 06:49 POC Glucose (mg/dL) 188 H 305 H 209 H (75-99) mg/dL 12/11/20 Range/Units 11:37 POC Glucose (mg/dL) 233 H (75-99) mg/dL Microbiology - Last 24 Hours (Table) 12/05/20 02:27 Blood Culture - Final Blood No Growth after 144 hours <Yanet Levin - Last Filed: 01/27/21 21:22> Subjective Patient is high surgical risk. Recommend noninvasive treatment for malnutrition. As hemoglobin and platelets improve, we'll reevaluate for PEG tube placement. Objective - Vital Signs Vital signs: Vital Signs Temp 97.6 F 12/11/20 17:12 Pulse 87 12/11/20 17:12 Resp 18 12/11/20 17:12 BP 165/75 12/11/20 17:12 Pulse Ox 93 L 12/11/20 17:12 Intake & Output 12/11/20 12/11/20 12/12/20 06:59 18:59 06:59 Intake Total 80 420 Output Total 750 Balance -670 420 Weight 85.2 kg Intake: Oral 80 420 Output: Urine 750 Other: Voiding Method Indwelling Catheter Indwelling Catheter - Labs CBC & Chem 7: 12/16/20 06:59 12/18/20 07:14 Labs: Abnormal Lab Results - Last 24 Hours (Table) 12/07/20 12/10/20 12/11/20 Range/Units 06:48 20:15 06:49 POC Glucose (mg/dL) 305 H 209 H (75-99) mg/dL Free Marvin LC, Quant 4.20 H (0.33-1.94) mg/dL Free Lambda LC, Quant 3.56 H (0.57-2.63) mg/dL 12/11/20 12/11/20 Range/Units 11:37 16:23 POC Glucose (mg/dL) 233 H 293 H (75-99) mg/dL Free Marvin LC, Quant (0.33-1.94) mg/dL Free Lambda LC, Quant (0.57-2.63) mg/dL Microbiology - Last 24 Hours (Table) 12/05/20 02:27 Blood Culture - Final Blood No Growth after 144 hours
--- NOTE | 2020-12-11 14:20 | PN ---
PROGRESS NOTE The patient is seen for followup for CKD. He is being treated for underlying COVID pneumonia. Serum creatinine staying at about 3.1 mg/dL. It had increased to 3.4 yesterday. BUN has been decreasing. Currently patient is maintained on D5W at 50 mL an hour. PHYSICAL EXAMINATION: On examination today, blood pressure was 137/54, heart rate 84 per minute. He is afebrile. Examination shows no significant edema in the lower extremities. Abdomen is soft, nontender. Patient is awake. He is confused. LABS: Labs show sodium 140, potassium 4.9, chloride 105, BUN 119, serum creatinine 3.15. ASSESSMENT: 1. Acute kidney injury, acute tubular necrosis, associated with underlying COVID infection, nonoliguric, somewhat improved today. 2. Disproportionately elevated BUN secondary to steroids and prerenal state. Maintained on D5W, currently improving. 3. Chronic kidney disease stage 4 secondary to diabetic kidney disease. Baseline creatinine about 2 mg/dL. 4. Deep vein thrombosis, status post IVC filter. 5. Gastrointestinal bleed. 6. Hypokalemia secondary to decreased oral intake. PLAN: Continue with D5W. Continue to monitor labs. MMODL / IJN: [id number] /
[2020-12-11 16:30] LABS: Glucose,Whole Blood 293 mg/dL (75-99)
[2020-12-11] MEDS: allopurinoL 100 MG TAB PO SCH (16:51)
--- NOTE | 2020-12-11 17:26 | P.PN ---
Subjective Progress Note Date: 12/11/20 Principal diagnosis: Covid infection. Anemia of chronic kidney disease Mr. Pena is a very pleasant 75-year-old male very well-known to the practice. He has been on epo supplementation for anemia of chronic kidney disease for many years. Today he is seen, he is very weak and frail looking, he has high flow O2 on. He did open his eyes to voice, he was not able to speak other than a few whispered words, he wanted a drink of water, he was able to drink without coughing, did need assistance to get the cup to his lips. Objective - Vital Signs Vital signs: Vital Signs Temp 97.6 F 12/11/20 17:12 Pulse 87 12/11/20 17:12 Resp 18 12/11/20 17:12 BP 165/75 12/11/20 17:12 Pulse Ox 93 L 12/11/20 17:12 Intake & Output 12/10/20 12/11/20 12/11/20 18:59 06:59 18:59 Intake Total 80 420 Output Total 800 750 Balance -800 -670 420 Weight 85.2 kg Intake: Oral 80 420 Output: Urine 800 750 Other: Voiding Method Indwelling Catheter Indwelling Catheter Indwelling Catheter - Constitutional Constitutional Comment(s): pale, frail, tired looking General appearance: Present: cooperative, mild distress - EENT Eyes: Present: anicteric sclerae ENT: Present: hearing grossly normal - Integumentary Integumentary: Present: pale - Musculoskeletal Musculoskeletal: Present: generalized weakness - Labs CBC & Chem 7: 12/10/20 10:17 12/10/20 10:17 Labs: Abnormal Lab Results - Last 24 Hours (Table) 12/07/20 12/10/20 12/11/20 Range/Units 06:48 20:15 06:49 POC Glucose (mg/dL) 305 H 209 H (75-99) mg/dL Free [place] LC, Quant 4.20 H (0.33-1.94) mg/dL Free Lambda LC, Quant 3.56 H (0.57-2.63) mg/dL 12/11/20 12/11/20 Range/Units 11:37 16:23 POC Glucose (mg/dL) 233 H 293 H (75-99) mg/dL Free [place] LC, Quant (0.33-1.94) mg/dL Free Lambda LC, Quant (0.57-2.63) mg/dL Microbiology - Last 24 Hours (Table) 12/05/20 02:27 Blood Culture - Final Blood No Growth after 144 hours Assessment and Plan (1) Acute on chronic renal failure Current Visit: Yes Status: Acute Priority: High Code(s): N17.9 - ACUTE KIDNEY FAILURE, UNSPECIFIED; N18.9 - CHRONIC KIDNEY DISEASE, UNSPECIFIED SNOMED Code(s): 530666263 (2) DVT (deep venous thrombosis) Current Visit: Yes Status: Acute Priority: High Code(s): I82.409 - ACUTE EMBOLISM AND THOMBOS UNSP DEEP VN UNSP LOWER EXTREMITY SNOMED Code(s): 252736211 (3) Retroperitoneal hematoma Current Visit: Yes Status: Acute Priority: High Code(s): K66.1 - HEMOPERITONEUM SNOMED Code(s): 587755244 (4) Leukocytosis Current Visit: Yes Status: Acute Priority: High Code(s): D72.829 - ELEVATED WHITE BLOOD CELL COUNT, UNSPECIFIED SNOMED Code(s): 869219553 (5) Thrombocytopenia Current Visit: Yes Status: Acute Priority: High Code(s): D69.6 - THROMBOCYTOPENIA, UNSPECIFIED SNOMED Code(s): 624065619 Plan: Recent diagnosis of left lower extremity DVT, placed on anticoagulation, and subsequent retroperitoneal hemorrhage. Patient has had an IVC filter placement as he is not a candidate for anticoagulation. Transfuse for Hgb < 7. Conservative transfusions for patient based on symptoms. Want to avoid unnecessary fluid overload. Transfuse for platelets less than 10,000 or if acute bleeding. Platelets are low secondary to acute infection. Elevated WBC/ANC secondary to infection, no acute intervention from a Hematology standpoint Acute on chronic renal failure. Nephrology following. Cont to monitor CBC
--- NOTE | 2020-12-11 19:31 | P.PN ---
Progress Note - Text Progress Note Date: 12/11/20 Chief Complaint: Tired History of presenting complaint: Pleasant 75-year-old patient of Dr. Horta. Chronic stable medical conditions include diabetes, hypothyroid, gout, peripheral neuropathy, diabetic retinopathy, chronic kidney disease, coronary artery disease with a history of bypass and AICD. Patient's is by the bedside who provides most of the history. Patient about 7 days ago on Friday every couple of days before that has started feeling a little bit tired. Motor worse on Friday. Also developed a fever. Decreased appetite diet. Had some diarrhea. Body aches. No loss of smell or taste. Patient did have COVID rapid tested on that was negative. Now becomes short of breath with minimal exertion tired rundown. Patient is tested positive for COVID 19. Initial pulse ox on room air was 98% and then did go down to 94% on 2 L. Admitted with acute bilateral COVID 19 pneumonitis, acute hypoxic respiratory failure, acute myocarditis. Placed on dexamethasone Lovenox. IV Remdesivir. Patient is requiring high flow oxygen. Patient dropped his hemoglobin on the . Receive 2 units of blood. Patient's front of her retroperitoneal bleed. Received a total of 4 units of blood. Left leg DVT-IVC filter placed on December 08 Today: Patient's at, and with a view to possible comfort care. But later this afternoon patient had perked up.. Nurse called me. Patient had eaten about 50%. His Accu-Cheks acute cough. Requested the D5W to be discontinued. Patient is more alert. Nurse did me to see if he could do for the comfort care measures as patient is doing somewhat better. Review of systems: Was done for constitutional, cardiovascular, GI, pulmonary. relevant finding as above Active Medications Acetaminophen (Acetaminophen Tab 325 Mg Tab) 650 mg PO Q6HR PRN PRN Reason: Fever and/ or Pain Last Admin: 12/06/20 20:49 Dose: 650 mg Documented by: Allopurinol (Allopurinol 100 Mg Tab) 100 mg PO W/SUPPER MATT Last Admin: 12/11/20 16:51 Dose: 100 mg Documented by: Alprazolam (Alprazolam 0.25 Mg Tab) 0.25 mg PO Q8HR PRN PRN Reason: Anxiety Last Admin: 12/08/20 05:29 Dose: 0.25 mg Documented by: Ascorbic Acid (Ascorbic Acid 500 Mg Tab) 500 mg PO BID [facility] Last Admin: 12/11/20 07:59 Dose: 500 mg Documented by: Atorvastatin Calcium (Atorvastatin 40 Mg Tab) 40 mg PO HS [facility] Last Admin: 12/10/20 20:50 Dose: 40 mg Documented by: Carvedilol (Carvedilol 6.25 Mg Tab) 6.25 mg PO BID-W/MEALS [facility] Last Admin: 12/11/20 16:51 Dose: 6.25 mg Documented by: Cholecalciferol (Cholecalciferol 25 Mcg (1000 Iu) Tablet) 100 mcg PO DAILY [facility] Last Admin: 12/11/20 07:58 Dose: 100 mcg Documented by: Darbepoetin Rziwan (Darbepoetin Rizwan 40 Mcg/0.4 Ml Syringe) 40 mcg SQ Q7D [facility] Last Admin: 12/05/20 11:29 Dose: 40 mcg Documented by: Desmopressin Acetate (Desmopressin Acetate 4 Mcg/Ml Vial (Mdv)) 1 mcg SQ DAILY [facility] Last Admin: 12/11/20 07:57 Dose: 1 mcg Documented by: Dexamethasone Sodium Phosphate (Dexamethasone Sod Phosphate 10 Mg/Ml 1 Ml Vial) 6 mg IV DAILY [facility] Last Admin: 12/11/20 07:57 Dose: 6 mg Documented by: Famotidine (Famotidine 20 Mg Tab) 20 mg PO DAILY [facility] Last Admin: 12/11/20 07:59 Dose: 20 mg Documented by: Ferrous Sulfate (Ferrous Sulfate 325 Mg Tab) 325 mg PO BID@1200,1800 [facility] Last Admin: 12/11/20 16:51 Dose: 325 mg Documented by: Cefepime HCl 1 gm/ Sodium (Chloride) 50 mls @ 12.5 mls/hr IVPB Q12HR [facility] Last Admin: 12/11/20 08:00 Dose: 12.5 mls/hr Documented by: Dextrose/Water (Dextrose 5%-Water Iv Soln) 1,000 mls @ 50 mls/hr IV .Q20H [facility] Last Admin: 12/11/20 04:02 Dose: Not Given Documented by: Insulin Aspart (Insulin Aspart (Novolog) 100 Unit/Ml Vial) 0 unit SQ ACHS [facility]; Protocol Last Admin: 12/11/20 16:51 Dose: 5 unit Documented by: Insulin Detemir (Insulin Detemir (Levemir) 100 Unit/Ml Syr) 35 unit SQ DAILY@0700 [facility] Last Admin: 12/11/20 07:59 Dose: 35 unit Documented by: Insulin Detemir (Insulin Detemir (Levemir) 100 Unit/Ml Syr) 35 unit SQ HS [facility] Last Admin: 12/10/20 20:52 Dose: 35 unit Documented by: Levothyroxine Sodium (Levothyroxine 100 Mcg Tab) 100 mcg PO 0630 [facility] Last Admin: 12/11/20 05:35 Dose: 100 mcg Documented by: Linezolid (Linezolid 600 Mg Tab) 600 mg PO Q12HR [facility] Last Admin: 12/11/20 07:58 Dose: 600 mg Documented by: Naloxone HCl (Naloxone 0.4 Mg/Ml 1 Ml Vial) 0.2 mg IV Q2M PRN PRN Reason: Opioid Reversal Pantoprazole Sodium (Pantoprazole 40 Mg/10 Ml Vial) 40 mg IVP BID [facility] Last Admin: 12/11/20 07:57 Dose: 40 mg Documented by: Repaglinide (Repaglinide 1 Mg Tab) 0.25 mg PO AC-BID [facility] Last Admin: 12/11/20 16:51 Dose: 0.25 mg Documented by: Tamsulosin HCl (Tamsulosin 0.4 Mg Cap.Er.24h) 0.4 mg PO [facility] Last Admin: 12/10/20 20:50 Dose: 0.4 mg Documented by: Zinc Sulfate (Zinc Sulfate 220 Mg Cap) 220 mg PO DAILY [facility] Last Admin: 12/11/20 07:59 Dose: 220 mg Documented by: Past medical history to include: Diabetes, hypothyroid, gout, diabetic peripheral neuropathy, diabetic retinopathy, chronic kidney disease stage IV, coronary artery disease with bypass, AICD Social history: No history of smoking or alcohol. . 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 PSYCH: [Alert and oriented x3; mood and affect tired NEUROLOGICAL: Cranial nerves grossly intact; no facial asymmetry, moving all 4 limbs Rest of exam per pulmonary and nursing INVESTIGATIONS, reviewed in the clinical context: December 10: WBC 16.7 hemoglobin 8.1 platelets 75 potassium 4.9 creatinine 3.15 bun 119 December 08: Accu-Cheks 59, 63 Ultrasound Doppler lower extremity bilateral: Acute DVT in the left lower extremity with hyperexpanded material filling the lumen and absent color flow begins in the superficial femoral vein and more prominent findings in the mid and distal sebaceous femoral vein. December 07: WBC 20.04 hemoglobin 7.6 platelets 66 potassium 4.7 creatinine 3.2 bun 154 calcium 6.1 phosphorus 8 Computed tomography scan of abdomen and pelvis: Fairly moderate to large size pelvic retroperitoneal hematoma with local mass effect. Mild cortical thinning in both the kidneys. November 28: WBC 20.6 hemoglobin 6.1 platelets 77 potassium 5 BUN 151 creatinine 3.61 lactic acid 3.1 calcium 5.8 November 27: WBC 5.4 hemoglobin 9.3 potassium 4.8 creatinine 2.2 LDH 687 CRP 1.2 November 21: Potassium 4.8 creatinine 2.7 2-D echocardiogram: EF 50-55% November 20 Potassium 5.1 creatinine 2.85 d-dimer 0.47 CRP 70 WBC 3.2 hemoglobin 9.7 platelets 164 lymphocytes 0.5 sodium 131 potassium 4.8 bun 61 creatinine 3.37 Troponin I 0.073, 0.073, 0.068 albumin 3.2 Urine protein 2+ moderate blood Coronavirus [PCR] detected EKG tracing personally reviewed by me-normal sinus rhythm Chest x-ray film personally reviewed by me-bilateral infiltrates Renal ultrasound-normal Assessment and plan: -Acute bilateral COVID 19 pneumonia. Symptoms started about a week before presentation.-Slow to respond on IV dexamethasone, subcu Lovenox-held, vitamin C vitamin D Pepcid and zinc. November 20 - Remdesivir -Acute hypoxic respiratory failure, secondary to COVID 19 pneumonia: -Slow to respond Advanced to a Airvo/nonrebreather 60/65% -Acute myocarditis secondary to COVID 19 Telemetry. watch for arrhythmias. -Acute kidney injury likely ATN from sepsis from COVID 19, hypertension.-Slow to respond . IV fluids -Chronic kidney disease stage IV secondary to diabetic kidney disease. Creatinine 2.17 August 2020 Follow renal function -AICD On telemetry -Coronary artery disease with prior history of carotid bypass Continue with Coreg, Lipitor, aspirin -Hypothyroid Continue with Synthroid -Diabetes mellitus type 2, on oral hypoglycemic, uncontrolled with hyperglycemia Follow Accu-Cheks with sliding scale insulin. Increase Levemir to 28 units at night -Chronic gout Continue with allopurinol -Anemia of chronic kidney disease Follow H&H and continue with erythropoietin -Diabetic retinopathy Follow clinically -Diabetic peripheral neuropathy Follow clinically -Hyponatremia from a relative decrease in solute from decreased appetite- improving Saline IV -Metabolic acidosis due to chronic kidney disease Supplement bicarb -Acute retroperitoneal bleed likely from patient being on Lovenox Lovenox has been on hold. 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 Patient not a candidate for anticoagulation. IVC filter, cook/la nena -Hyperphosphatemia due to acute on chronic kidney disease -Thrombocytopenia likely from underlying infection -CODE STATUS DO NOT RESUSCITATE Prognosis remains guarded. Some improvement in oral intake. We will defer comfort care at least for 24 hours and taken to do day-to-day basis.
[2020-12-11] MEDS: ATORVASTATIN 40 MG TAB PO SCH (20:41)
[2020-12-11] MEDS: TAMSULOSIN 0.4 MG CAP.ER.24H PO SCH (20:41)
[2020-12-11 20:47] LABS: Glucose,Whole Blood 240 mg/dL (75-99)
[2020-12-12] MEDS: LEVOTHYROXINE 100 MCG TAB PO SCH (05:25)
[2020-12-12 06:55] LABS: Anisocytosis Slight; Basophils % (A) 0 %; Eosinophils # (A) 0.1 k/uL (0-0.7); Eosinophils % (A) 1 %; HCT 22.5 % (39.0-53.0); HGB 7.7 gm/dL (13.0-17.5); Lymphocytes # (A) 0.4 k/uL (1.0-4.8); Lymphocytes % (A) 3 %; MCH 32.5 pg (25.0-35.0); MCHC 34.4 g/dL (31.0-37.0); MCV 94.4 fL (80.0-100.0); Macrocytosis Slight; Mean Platelet Volume 9.1; Monocytes # (A) 0.5 k/uL (0-1.0); Monocytes % (A) 4 %; Neutrophils # (A) 11.3 k/uL (1.3-7.7); Neutrophils % (A) 91 %; RBC 2.38 m/uL (4.30-5.90); RDW 18.8 % (11.5-15.5); WBC 12.5 k/uL (3.8-10.6)
[2020-12-12 06:56] LABS: Glucose,Whole Blood 50 mg/dL (75-99)
[2020-12-12] MEDS: INSULIN DETEMIR (LEVEMIR) 100 UNIT/ML SYR SQ SCH ×2 (07:01→20:19)
[2020-12-12] MEDS: INSULIN ASPART (NovoLOG) 100 UNIT/ML VIAL SQ SCH ×4 (07:01→20:19)
[2020-12-12 07:03] LABS: African American GFR (CKD) 24 (>60 ml/min/1.73 sqM); Anion Gap 7 mmol/L; Carbon Dioxide 27 mmol/L (22-30); Chloride 106 mmol/L (98-107); Non-African American GFR(CKD) 20 (>60 ml/min/1.73 sqM); Potassium 4.2 mmol/L (3.5-5.1); Sodium 140 mmol/L (137-145)
[2020-12-12 07:07] LABS: Platelet Count 69 k/uL (150-450)
[2020-12-12 07:10] LABS: Glucose,Whole Blood 53 mg/dL (75-99)
[2020-12-12 07:18] LABS: Blood Urea Nitrogen 115 mg/dL (9-20)
[2020-12-12 07:20] LABS: Calcium 6.2 mg/dL (8.4-10.2)
[2020-12-12 07:21] LABS: Glucose 38 mg/dL (74-99)
[2020-12-12 07:29] LABS: Glucose,Whole Blood 84 mg/dL (75-99)
[2020-12-12] MEDS ORDERED: CALCIUM CARBONATE 500 MG CHEWABLE PO PRN (09:03)
[2020-12-12] MEDS: FAMOTIDINE 20 MG TAB PO SCH (09:07)
[2020-12-12] MEDS: carvediloL 6.25 MG TAB PO SCH ×2 (09:07→17:48)
[2020-12-12] MEDS: REPAGLINIDE 1 MG TAB PO SCH ×2 (09:08→17:49)
[2020-12-12] MEDS: LINEZOLID 600 MG TAB PO SCH (09:08)
[2020-12-12] MEDS: DEXAMETHASONE SOD PHOSPHATE 10 MG/ML 1 ML VIAL IV SCH (09:08)
[2020-12-12] MEDS: ASCORBIC ACID 500 MG TAB PO SCH ×2 (09:08→20:40)
[2020-12-12] MEDS: FERROUS SULFATE 325 MG TAB PO SCH ×2 (09:08→17:49)
[2020-12-12] MEDS: CHOLECALCIFEROL 25 MCG (1000 IU) TABLET PO SCH (09:08)
[2020-12-12] MEDS: ZINC SULFATE 220 MG CAP PO SCH (09:08)
[2020-12-12] MEDS: PANTOPRAZOLE 40 MG/10 ML VIAL IVP SCH ×2 (09:09→20:40)
[2020-12-12] MEDS: DESMOPRESSIN ACETATE 4 MCG/ML VIAL (MDV) SQ SCH (09:17)
--- NOTE | 2020-12-12 11:02 | PN ---
PROGRESS NOTE DATE OF SERVICE: 12/12/2020 REASON FOR FOLLOWUP: Pneumonia. INTERVAL HISTORY: The patient is afebrile. The patient is breathing comfortably. Patient denies having any chest pain or any worsening cough. No nausea, no vomiting. No abdominal pain, no diarrhea. PHYSICAL EXAMINATION: Blood pressure is 112/66, pulse of 76, temperature 97.5. He is 91% on AIRVO. General description is an elderly male lying in bed in no distress. RESPIRATORY SYSTEM: Unlabored breathing, clear to auscultation anteriorly. HEART: S1, S2. Regular rate and rhythm. ABDOMEN: Soft, no tenderness. EXTREMITIES: No edema of the feet. LABS: Hemoglobin 7.7, white count down to 12.5. BUN is 115, creatinine is 2.89. DIAGNOSTIC IMPRESSION AND PLAN: Patient admitted to the hospital with COVID-19 pneumonia subsequently did have worsening concern for possible nosocomial infection. Patient is currently on cefepime and Zyvox. The patient's white count is showing a downward trend after had a positive UA and should have been covered with the current antibiotics. MMODL / IJN: [id number] /
[2020-12-12] MEDS: DARBEPOETIN ALFA 40 MCG/0.4 ML SYRINGE SQ SCH (11:43)
[2020-12-12] MEDS: DEXTROSE 5% IN WATER 1,000 ML IV SCH ×2 (11:44→20:40)
[2020-12-12 11:45] LABS: Glucose,Whole Blood 106 mg/dL (75-99)
[2020-12-12] MEDS: CEFEPIME 2 GM in SODIUM CHLORIDE 0.9% 100 ML IVPB SCH (11:53)
[2020-12-12] MEDS ORDERED: CALCIUM GLUCONATE 2 GM in SODIUM CHLORIDE 0.9% 100 ML IVPB ONE (12:00)
--- NOTE | 2020-12-12 12:11 | P.PN ---
<Namrata Odell - Last Filed: 12/12/20 12:06> Subjective Progress Note Date: 12/12/20 CHIEF COMPLAINT: COVID-19 pneumonia HISTORY OF PRESENT ILLNESS: The patient is a 75 year old male with COVID pneumonia. Surgical service is following in regards to patient's retroperitoneal hematoma. Patient denies any abdominal pain. Denies any back pain. Patient is lethargic. He has persistent global decline. Afebrile. He is on an AIRVO and nonrebreather. He has received blood transfusions and platelet transfusion during this admission as well as a DDAVP and Aranesp. Patient continues to have poor oral intake. Afebrile. WBC 12.5 hemoglobin 7.7 platelets 69 creatinine 2.89 PHYSICAL EXAM: VITAL SIGNS: Reviewed GENERAL: Well-developed in no acute distress. HEENT: No sclera icterus. Extraocular movements grossly intact. Moist buccal mucosa. Head is atraumatic, normocephalic. Hears conversational speech. No nasal drainage. NECK: Supple without lymphadenopathy. CHEST: Non-labored respirations and equal bilateral excursions. CARDIOVASCULAR: Palpable 2+ radial pulses. ABDOMEN: Soft. Nondistended. Nontender. MUSCULOSKELETAL: No clubbing or cyanosis. NEUROLOGIC: No focal or lateralizing signs. Cranial nerves II through XII grossly intact. PSYCH: Lethargic SKIN: Well perfused. Good skin turgor. ASSESSMENT: 1. Retroperitoneal hematoma 2. Acute blood loss anemia secondary to Retroperitoneal bleed 3. COVID-19 pneumonia 4. Acute hypoxic respiratory failure secondary to COVID-19 pneumonia 5. Acute myocarditis 6. Acute kidney injury followed by nephrology 7. Chronic kidney disease stage IV 8. History of AICD 9. History of diabetes mellitus type 2 10. Thrombocytopenia 11. Acute left lower extremity DVT status post IVC filter placement PLAN: -No surgical intervention planned for the retroperitoneal hematoma -We'll continue to observe patient -Consult dietitian to complete calorie count -Patient is being assessed for possible PEG tube placement if he does not meet his nutritional needs Physician Re Etcher note has been reviewed by physician. Signing provider agrees with the documented findings, assessment, and plan of care. Objective - Vital Signs Vital signs: Vital Signs Temp 97.4 F L 12/12/20 10:00 Pulse 83 12/12/20 10:00 Resp 16 12/12/20 10:00 BP 86/50 12/12/20 10:00 Pulse Ox 85 L 12/12/20 10:00 Intake & Output 12/11/20 12/12/20 12/12/20 18:59 06:59 18:59 Intake Total 420 240 Output Total 1500 Balance 420 -1260 Weight 85.2 kg Intake: Oral 420 240 Output: Urine 1500 Other: Voiding Method Indwelling Catheter Indwelling Catheter - Labs CBC & Chem 7: 12/12/20 06:14 12/12/20 06:14 Labs: Abnormal Lab Results - Last 24 Hours (Table) 12/07/20 12/11/20 12/11/20 Range/Units 06:48 16:23 20:45 WBC (3.8-10.6) k/uL RBC (4.30-5.90) m/uL Hgb (13.0-17.5) gm/dL Hct (39.0-53.0) % RDW (11.5-15.5) % Plt Count (150-450) k/uL Neutrophils # (1.3-7.7) k/uL Lymphocytes # (1.0-4.8) k/uL BUN (9-20) mg/dL Creatinine (0.66-1.25) mg/dL Glucose (74-99) mg/dL POC Glucose (mg/dL) 293 H 240 H (75-99) mg/dL Calcium (8.4-10.2) mg/dL Ionized Calcium Lydia (4.5-5.3) mg/dL Free Morenci LC, Quant 4.20 H (0.33-1.94) mg/dL Free Lambda LC, Quant 3.56 H (0.57-2.63) mg/dL 12/12/20 12/12/20 12/12/20 Range/Units 06:14 06:14 06:54 WBC 12.5 H (3.8-10.6) k/uL RBC 2.38 L (4.30-5.90) m/uL Hgb 7.7 L (13.0-17.5) gm/dL Hct 22.5 L (39.0-53.0) % RDW 18.8 H (11.5-15.5) % Plt Count 69 L (150-450) k/uL Neutrophils # 11.3 H (1.3-7.7) k/uL Lymphocytes # 0.4 L (1.0-4.8) k/uL BUN 115 H* (9-20) mg/dL Creatinine 2.89 H (0.66-1.25) mg/dL Glucose 38 L* (74-99) mg/dL POC Glucose (mg/dL) 50 L (75-99) mg/dL Calcium 6.2 L* (8.4-10.2) mg/dL Ionized Calcium Lydia (4.5-5.3) mg/dL Free Morenci LC, Quant (0.33-1.94) mg/dL Free Lambda LC, Quant (0.57-2.63) mg/dL 12/12/20 12/12/20 12/12/20 Range/Units 07:09 08:59 11:44 WBC (3.8-10.6) k/uL RBC (4.30-5.90) m/uL Hgb (13.0-17.5) gm/dL Hct (39.0-53.0) % RDW (11.5-15.5) % Plt Count (150-450) k/uL Neutrophils # (1.3-7.7) k/uL Lymphocytes # (1.0-4.8) k/uL BUN (9-20) mg/dL Creatinine (0.66-1.25) mg/dL Glucose (74-99) mg/dL POC Glucose (mg/dL) 53 L 106 H (75-99) mg/dL Calcium (8.4-10.2) mg/dL Ionized Calcium Lydia 3.4 L* (4.5-5.3) mg/dL Free Morenci LC, Quant (0.33-1.94) mg/dL Free Lambda LC, Quant (0.57-2.63) mg/dL <Yanet Levin - Last Filed: 01/27/21 21:24> Subjective Patient seen and evaluated. Clinically, patient continues to decline. Recommend calorie count. Recommend noninvasive placement of Dobbhoff. Objective - Vital Signs Vital signs: Vital Signs Temp 98.0 F 12/12/20 21:56 Pulse 85 12/12/20 21:56 Resp 17 12/12/20 21:56 BP 144/82 05/04/21 21:56 Pulse Ox 91 L 12/12/20 21:56 Intake & Output 12/12/20 12/12/20 12/13/20 06:59 18:59 06:59 Intake Total 240 240 Output Total 1500 Balance -1260 240 Intake: Oral 240 240 Output: Urine 1500 Other: Voiding Method Indwelling Catheter Indwelling Catheter - Labs CBC & Chem 7: 12/16/20 06:59 12/18/20 07:14 Labs: Abnormal Lab Results - Last 24 Hours (Table) 12/12/20 12/12/20 12/12/20 Range/Units 06:14 06:14 06:54 WBC 12.5 H (3.8-10.6) k/uL RBC 2.38 L (4.30-5.90) m/uL Hgb 7.7 L (13.0-17.5) gm/dL Hct 22.5 L (39.0-53.0) % RDW 18.8 H (11.5-15.5) % Plt Count 69 L (150-450) k/uL Neutrophils # 11.3 H (1.3-7.7) k/uL Lymphocytes # 0.4 L (1.0-4.8) k/uL BUN 115 H* (9-20) mg/dL Creatinine 2.89 H (0.66-1.25) mg/dL Glucose 38 L* (74-99) mg/dL POC Glucose (mg/dL) 50 L (75-99) mg/dL Calcium 6.2 L* (8.4-10.2) mg/dL Ionized Calcium Lydia (4.5-5.3) mg/dL 12/12/20 12/12/20 12/12/20 Range/Units 07:09 08:59 11:44 WBC (3.8-10.6) k/uL RBC (4.30-5.90) m/uL Hgb (13.0-17.5) gm/dL Hct (39.0-53.0) % RDW (11.5-15.5) % Plt Count (150-450) k/uL Neutrophils # (1.3-7.7) k/uL Lymphocytes # (1.0-4.8) k/uL BUN (9-20) mg/dL Creatinine (0.66-1.25) mg/dL Glucose (74-99) mg/dL POC Glucose (mg/dL) 53 L 106 H (75-99) mg/dL Calcium (8.4-10.2) mg/dL Ionized Calcium Lydia 3.4 L* (4.5-5.3) mg/dL 12/12/20 12/12/20 Range/Units 16:43 20:07 WBC (3.8-10.6) k/uL RBC (4.30-5.90) m/uL Hgb (13.0-17.5) gm/dL Hct (39.0-53.0) % RDW (11.5-15.5) % Plt Count (150-450) k/uL Neutrophils # (1.3-7.7) k/uL Lymphocytes # (1.0-4.8) k/uL BUN (9-20) mg/dL Creatinine (0.66-1.25) mg/dL Glucose (74-99) mg/dL POC Glucose (mg/dL) 169 H 148 H (75-99) mg/dL Calcium (8.4-10.2) mg/dL Ionized Calcium Lydia (4.5-5.3) mg/dL
--- NOTE | 2020-12-12 12:24 | XR ---
EXAMINATION TYPE: XR chest 1V portable DATE OF EXAM: 12/12/2020 HISTORY: Shortness of breath. COMPARISON: 12/08/2020 TECHNIQUE: Single view of the chest is submitted. FINDINGS: Demonstrated are scattered senescent parenchymal change. Persistent patchy basilar infiltrates identified. The heart is stable. Hilar and mediastinal structures are within normal limits. Degenerative changes are seen of the dorsal spine. IMPRESSION: 1. Persistent patchy basilar infiltrates identified.
--- NOTE | 2020-12-12 15:11 | P.PN ---
Subjective Progress Note Date: 12/12/20 Principal diagnosis: Acute COVID-19 pneumonia Acute COVID-19 pneumonia 75-year-old male patient, started having symptoms approximately a week ago when he started feeling a bit tired and fatigued. He subsequently developed fever and diminished appetite and some diarrhea. The patient tested positive for COVID 19 infection 4 days ago and this was again confirmed on 11/19/2020. The patient came into the emergency with weakness and shortness of breath. The patient is currently on 2 L of oxygen by nasal cannula. He is known to have CAD, previous bypass, aortic, chronic disease, diabetes mellitus and diabetic retinopathy and neuropathy and hypothyroidism and gout. Lactate was 0.7, there d-dimer was 0.6, white cell count was at 3.2 with a lymphopenia, creatinine was at 3.37 with a mean of 61. He is also on multivitamins. Chest x-ray showing diffuse bilateral pulmonary infiltrates. On today's evaluation of 4 [id number],021 the patient is currently on oxygen at 4 L per minute. The patient is quite comfortable. Pulse ox is around 95% and FiO2 can be obviously weaned off. The patient is being seen for a follow-up. The patient is currently being treated with Decadron 6 mg IV every 24 hours. The patient is also on Lovenox 40 mg subcu daily and the patient is also on Remdesivir day #2. No follow-up chest x-rays available from today. The rest of the labs are showing chronic kidney disease with a creatinine of 2.7. The patient has chronic metabolic acidosis which is of a non-anion gap type. On 11/22/2020 patient seen in follow-up. Is comfortable, still desat easily, feels tired, but no acute distress, today's labs have been reviewed, d-dimer 0.69, CRP is 35.6, no LDH. Has not had a chest x-ray, he is currently on 7 L, his pulse ox is 89%, no fever, remains on Remdesivir, today is day 3 of treatment. On 11/23/2020 patient is pretty stable, he remains on 5 L of oxygen, her pulse ox 89-90%, he is breathing comfortably, no worsening dyspnea, his 0.9, saline at 60 per hour, patient completed Remdesivir treatment, he remains on steroids, and prophylactic Lovenox. No worsening dyspnea, today's labs have been reviewed, d- dimer is 1.90, renal profile is slightly improved from yesterday, patient continues on IV fluids, no nausea vomiting or diarrhea, CRP is trending down, LDH with today is pending. On 11/25/2000 patient seen in follow-up on medical surgical floor, he is sitting up in the chair, appears to be breathing comfortably although his oxygen requirements have increased, and is currently on 15 L per high flow nasal cannula up from 12 L from yesterday, he denies any worsening dyspnea, lung sounds reveal diffuse bilateral crackles, no chest discomfort, no signs of any respiratory distress. No cough, no wheezing, today's chest x-ray shows bilateral mid to lower lung increased opacities, findings consistent with COVID- 19 pneumonia, the findings are stable in appearance. Follow-up inflammatory markers showed d-dimer of 19.16, LDH is up to 2028, CRP is 2.4. Patient has completed his Remdesivir course, she remains on daily dose of Decadron 6 mg, and Lovenox 30 mg daily, his renal function appears to be relatively stable, his bun is 64, and creatinine is 2.12 On 11/26/2020 patient seen in follow-up on medical surgical floor, he sitting up in the chair, he is breathing comfortably, he is currently down to 13 L, and his pulse ox is 90-94%, his been afebrile, overall she looks stable, he does not appear to be in any acute distress, he is a d-dimer has trended up, and on today's labs it is up to 30.3, and his Lovenox dose will be adjusted. Today's inflammatory markers are improving. He remains on daily dose IV Decadron 6 mg daily, Lovenox, multivitamins, and his IV fluids are infusing at a rate of 60 ML per hour, no new chest x-ray today, his kidney function shows slight improvement On 11/27/2000 patient seen in follow-up on medical surgical floor, he remains on high flow oxygen 15 L, and the nonrebreather mask, he does desat when he removes his nonrebreather mask down to 86% however he denies any dyspnea, he does not feel stressed at all, and looks very comfortable, he sitting up in the recliner, awake and alert, oriented 3, he is afebrile, hemodynamically has been stable, he has no specific complaints, and his today's chest x-ray shows cardiomegaly and low lung volumes with bilateral mid to lower lung reticular and confluent opacities consistent with COVID-19 pneumonia with no change from previousexam. Today's labs have been reviewed, white blood cell count is 5.45, hemoglobin is 9.3, no d-dimer today, but yesterday's d-dimer was quite elevated at 30.3, and his Lovenox dose was adjusted and increased to 40 mg twice a day, his electrolyte panel shows CO2 of 28.1, but prostate electrolytes are within normal limits, B1 is 84, creatinine is 2.2, his LDH is down to 687, improving, his CRP is 1.2 on today's labs. He continues on Decadron 6 mg daily, he is on Lovenox 40 mg twice a day, and he is receiving IV hydration at 60 ML per hour, nephrology is following On 11/28/2020 patient seen in follow-up on medical surgical floor, he is resting comfortably in bed, he is currently on 15 L high flow and 100% nonrebreather, he looks quite comfortable, he denies any shortness of breath, minimal cough, he is breathing comfortably, his pro-calcitonin level was low, his inflammatory markers were improving, his d-dimer was elevated on 11/26/2020 patient is on 40 mg of Lovenox twice daily, Lasix is at 40 mg every 12 hours patient is in negative fluid balance. No new chest x-ray today On 11/29/2000 patient seen in follow-up on medical surgical floor, is currently on 15 L per high flow nasal cannula, and 100 nonrebreather mask, and he is satting about 93%, he does not feel short of breath, he seems to be breathing very comfortably, he is afebrile, hemodynamically stable, his chest x-ray today shows low lung volumes with bilateral mid to lower lung reticular and confluent opacities consistent with COVID-19 pneumonia. Findings are similar to his previous chest x-ray, lower extremity Dopplers were completed and he was negative for DVT. His d-dimer is trending down, and is down to 16.0. The rest of his lab work has been reviewed, showing white blood cell count of 8.7, hemoglobin of 10.5, sodium is 136, potassium is 4.5, chloride is 98, BUN of 108, and creatinine is 3.2, his calcitonin level was negative at 0.10, his inflammatory markers were improving since admission. No nausea vomiting or diarrhea, and patient continues on daily dose of IV Decadron 6 mg, continues on Lovenox 40 mg twice daily, she was given a dose of Lasix yesterday and he was started on maintenance dose of IV Lasix On 11/30/2020 patient seen in follow-up on medical surgical floor, he is resting comfortably in bed, currently off the nonrebreather mask, on 15 L per high flow nasal cannula with his pulse ox is 90-91%, he looks very comfortable, breathing comfortably, no worsening dyspnea. Cooperative chest discomfort, no cough. No fever or chills. No acute events overnight, patient did receive 1 dose of Toci yesterday 720 mg, he remains on Lovenox 40 mg twice a day, and daily dose Decadron, today's labs have been reviewed, showing white blood cell, 10.1, hemoglobin of 10.3, d-dimer is trending down, down to 11.4, electrolytes are within normal limits, renal profile shows some improvement, pro-Joshua was negative, inflammatory markers are trending down, patient denies any specific complaints On 12/01/2020 patient seen in follow-up on medical surgical floor, is currently on 15 L per high flow nasal cannula and nonrebreather mask, and his pulse ox is 100%, he is breathing very comfortably, denies any cough, denies any chest pain, has had no fever or chills, no nausea vomiting diarrhea, no abdominal pain, no new chest x-rays, his labs have been reviewed, d-dimer today is 12.5, electroly angel are unremarkable, his renal profile slightly improved, his BUN is 113, and creatinine is 2.59. On 12/02/2020 patient seen in follow-up on medical surgical floor, he is currently back on 11 L of oxygen resting comfortably in bed, in comfortably, in his pulse ox was 99%, we dropped the FiO2 down to 8 L, and we instructed the nursing staff to continue weaning it to maintain O2 saturations at or above 90%, patient has no specific complaints, no cough, no chest discomfort, no fever, no chills no headaches, no nausea vomiting or diarrhea. Renal function continues to be impaired, and nephrology is following, his BUN is 1:30, and creatinine is 2.70, electrolytes were unremarkable on today's labs. No new chest x-ray today. Patient remains on IV Decadron 6 mg, and Lovenox is currently at 40 mg twice daily. Follow-up d-dimer is pending for today. On the 12/04/2020 patient seen in follow-up on medical surgical floor, he is currently on 7 L per high flow nasal cannula, his pulse ox is about 86-95%, although she looks very pale, his hemoglobin today is down to 6.0 and patient has not had any obvious bleeding, no hematemesis, no melena, abdomen is soft, no abdominal pain, he is a bit drowsy, he is mildly short of breath but does not appear to be in any acute distress, he was also found to be hypothermic, and appear hugger was applied, he received a unit of packed red blood cells, on in the 2 units are pending for transfusion today, today's labs have been reviewed, his white count is 23.6, his platelet count is down to 93,000, his neutrophil count is 21.5, a remains lymphopenic as well, and lymphocyte count is 0.48, serum sodium is 131, potassium is 5.0, chloride is 106, CO2 is 15, creatinine is 148, and creatinine of 3.36, serum calcium is 5.9, his last LDH from 12/03/2020 was 1654, and CRP was 0.9, CA urinalysis was sent and there is possibility of urinary tract infection with the large amounts of leukocytes esterase, white blood cells and white blood cells in clumps and many bacteria. Patient was started on cefepime, and Zyvox, ID service is following. Patient was increasingly more acidotic and he was given 1 puff sodium bicarbonates IV push, and was started on D5W with 3 A of bicarbonate at a rate of 50 ML per hour. No nausea vomiting or diarrhea. He received a dose of vancomycin yesterday, and vancomycin is being adjusted per pharmacy. Blood cultures are negative thus far On 12/05/2020 patient seen in follow-up on medical surgical floor. He is breat carla comfortably, he is resting in bed, he continues to require a bear hugger his current temp is currently 96.3 degrees utilizing a temporal artery. No obvious bleeding, patient is passing dark stools, however he also takes iron supplements, and the nurse states his stools are not obviously black and tarry, no hematemesis, abdomen is soft, no hematuria. No altered mentation, he is awake and alert, he is answering questions appropriately, he denies any worsening dyspnea, urine and blood cultures have been sent and are pending at this time, and patient is currently covered with cefepime, and Zyvox. Patient received 2 A of sodium bicarbonate this morning. Today's labs show a white blood cell count of 25.1, hemoglobin of 7.5, sodium is 132, potassium is 5.6, CO2 was 14, BUN was 156, creatinine is 3.49, lactic acid was 2.6, pro-calcitonin level is low at 0.28. Urinalysis suggest possibility of urinary tract infection. On 12/06/2020 patient seen in follow-up on medical surgical floor, he is resting quietly in bed, he still on high flow oxygen, currently at 15 L, his pulse ox is 94%, he states he is tired and sleepy, his hemoglobin is down to 6.1 today and again there is no clear evidence of bleeding, abdomen is soft, no hematemesis, no melena, patient is being transfused with 1 unit of packed red blood cells this morning, his white blood cell count was 20.6, his platelet count is 77, his anticoagulation has been on hold for last 48 hours, his BUN is up to 151, creatinine is 3.61. Plasma lactic acid was 3.1, patient is on antibiotics for possibility of sepsis, likely related to urinary tract infection, his urine culture showing gram-negative bacilli, fungal cultures pending, blood cultures have shown no growth. She remains on Decadron, and he is on cefepime and Zyvox. He received some fluid boluses 500 at 9:00 last night, and another 500 mL fluid bolus in the morning, she remains on D5W with 3 units of bicarbonate at a rate of 50 ML per hour. Nephrology is following. GI service has been consulted and CT of the demented pelvis are pending at this time On 12/07/2020 patient seen in follow-up on medical surgical floor, he is awake and alert, he looks better today, more awake, on today's exam, denies any worsening dyspnea, he is currently on 13 L of oxygen his pulse ox is 93%, his hemoglobin today is 7.6, patient 2 units of packed red blood cells yesterday and 2 units the day prior. His CT of the abdomen showed evidence of fairly moderate to large size left pelvic retroperitoneal hematoma with local mass effect, suggesting subacute possible acute on chronic etiology. Surgery was consulted and recommended conservative treatment. Patient has been off all anticoagulation, in his left leg on today's exam is quite large and swollen and for that reason lower extremity Doppler was obtained revealing acute DVT in the left leg. Resting blood work has been reviewed showing white blood cell count still elevated at 20.04, hemoglobin is 7.6 as mentioned above, platelet count is 66, today's d-dimer is 6.06 resting blood work is still pending. Hematology is following. Patient was also found to be septic, cultures showed Enterococcus faecalis, and patient is on a combination of cefepime and Zyvox, ID service is following. Appetite is poor, but his had no nausea vomiting or diarrhea, he is currently on D5W with 3 A of bicarbonate at a rate of 50 ML per hour. On 12/10/2020 patient seen in follow-up on medical surgical floor. Patient is very drowsy, he is poorly responsive, he remains on high flow oxygen at 60 L, and FiO2 of 78% in addition to nonrebreather mask, his pulse ox is around 90- 91%, he is on D5W at a rate of 50 ML per hour, as been hypothermic, with a temp as low as 95.6F, does not appear to be in any acute respiratory distress, however overall she seems quite debilitated, very weak and fatigued, he has not been eating. Overall his condition has been declining, patient is been maintained on steroids, his anticoagulation was placed on hold related to retroperitoneal bleeding, and patient required transfusions with blood, he then developed a DVT in his left lower extremity however in view of his bleeding he was not able to go back on anticoagulants and IVC filter was placed. Today's hemoglobin is 8.1, yesterday he received 1 more unit of blood for a hemoglobin of 6.8, and a unit of platelets. The platelet count was 69, and 75 on today's labs. No abdominal pain. Patient continues on cefepime and Zyvox, his urine culture was positive for E. coli and Enterococcus faecalis, blood cultures were negative On 12/12/2020 patient seen in follow-up on medical surgical floor. This was consulted and patient was seen by the hospice, however clinically he is looking a bit better today, and he is currently more awake and patient was actually hungry and was able to consume some oral nutrition. Patient is currently on Airvo at 60 L and FiO2 of 55% in addition to the nonrebreather mask, pulse ox is between 82-85%, afebrile, blood pressure is currently 136/64. Chest x-ray shows persistent patchy basilar infiltrates. Patient remains on antibiotics in the form of cefepime and Zyvox. His urine culture showed E. coli and Enterococcus faecalis, blood cultures show no growth. Today's labs have been reviewed, hence the renal function has actually improved since yesterday, his B1 is 1:15, creatinine is 2.89. Electrolytes are within normal limits, his platelet cell count is improving, and is down to 12.5, hemoglobin is 7.7, platelet count is 69. Objective - Vital Signs Vital signs: Vital Signs Temp 97.6 F 12/12/20 14:00 Pulse 87 12/12/20 14:00 Resp 16 12/12/20 14:00 BP 136/64 12/12/20 14:00 Pulse Ox 82 L 12/12/20 14:00 Intake & Output 12/11/20 12/12/20 12/12/20 18:59 06:59 18:59 Intake Total 420 240 Output Total 1500 Balance 420 -1260 Weight 85.2 kg Intake: Oral 420 240 Output: Urine 1500 Other: Voiding Method Indwelling Catheter Indwelling Catheter - Exam GENERAL EXAM: 75-year-old white male, a more awake on today's exam, and answering simple questions currently on Airvo at 60 l, fio2 55%, in addition to 100% nonrebreather mask, and his pulse ox is between 82-85% HEAD: Normocephalic/atraumatic. EYES: Normal reaction of pupils, equal size. Conjunctiva pink, sclera white. NOSE: Clear with pink turbinates. THROAT: No erythema or exudates. NECK: No masses, no JVD, no thyroid enlargement, no adenopathy. CHEST: No chest wall deformity. Symmetrical expansion. LUNGS: Equal air entry with bilateral crackles CVS: Regular rate and rhythm, normal S1 and S2, no gallops, no murmurs, no rubs ABDOMEN: Soft, nontender. No hepatosplenomegaly, normal bowel sounds, no guarding or rigidity. EXTREMITIES: No clubbing, left leg is quite swollen, and tight, with suspicion of DVT no cyanosis, 2+ pulses and upper and lower extremities. MUSCULOSKELETAL: Muscle strength and tone normal. SPINE: No scoliosis or deformity SKIN: No rashes CENTRAL NERVOUS SYSTEM: Weak but more awake on today's exam on high flow oxygen per Airvo. No focal deficits, tone is normal in all 4 extremities. - Labs CBC & Chem 7: 12/12/20 06:14 12/12/20 06:14 Labs: Abnormal Lab Results - Last 24 Hours (Table) 12/11/20 12/11/20 12/12/20 Range/Units 16:23 20:45 06:14 WBC (3.8-10.6) k/uL RBC (4.30-5.90) m/uL Hgb (13.0-17.5) gm/dL Hct (39.0-53.0) % RDW (11.5-15.5) % Plt Count (150-450) k/uL Neutrophils # (1.3-7.7) k/uL Lymphocytes # (1.0-4.8) k/uL BUN 115 H* (9-20) mg/dL Creatinine 2.89 H (0.66-1.25) mg/dL Glucose 38 L* (74-99) mg/dL POC Glucose (mg/dL) 293 H 240 H (75-99) mg/dL Calcium 6.2 L* (8.4-10.2) mg/dL Ionized Calcium Lydia (4.5-5.3) mg/dL 12/12/20 12/12/20 12/12/20 Range/Units 06:14 06:54 07:09 WBC 12.5 H (3.8-10.6) k/uL RBC 2.38 L (4.30-5.90) m/uL Hgb 7.7 L (13.0-17.5) gm/dL Hct 22.5 L (39.0-53.0) % RDW 18.8 H (11.5-15.5) % Plt Count 69 L (150-450) k/uL Neutrophils # 11.3 H (1.3-7.7) k/uL Lymphocytes # 0.4 L (1.0-4.8) k/uL BUN (9-20) mg/dL Creatinine (0.66-1.25) mg/dL Glucose (74-99) mg/dL POC Glucose (mg/dL) 50 L 53 L (75-99) mg/dL Calcium (8.4-10.2) mg/dL Ionized Calcium Lydia (4.5-5.3) mg/dL 12/12/20 12/12/20 Range/Units 08:59 11:44 WBC (3.8-10.6) k/uL RBC (4.30-5.90) m/uL Hgb (13.0-17.5) gm/dL Hct (39.0-53.0) % RDW (11.5-15.5) % Plt Count (150-450) k/uL Neutrophils # (1.3-7.7) k/uL Lymphocytes # (1.0-4.8) k/uL BUN (9-20) mg/dL Creatinine (0.66-1.25) mg/dL Glucose (74-99) mg/dL POC Glucose (mg/dL) 106 H (75-99) mg/dL Calcium (8.4-10.2) mg/dL Ionized Calcium Lydia 3.4 L* (4.5-5.3) mg/dL Assessment and Plan Plan: Assessment: #1. acute COVID 19 related pneumonia with secondary shortness of breath and hypoxic respiratory failure the patient's symptoms of generalized weakness and dehydration, currently on 4 L of oxygen by nasal cannula, patient was started on Remdesivir on 11/20/2020, Toci on 11/29/2020. Patient remains on Airvo at 60 L and FiO2 of 55% in addition to 100% nonrebreather mask #2. acute hypoxic respiratory failure, persistent #3. Acute blood loss anemia, related to large retroperitoneal hematoma, status post transfusion with 5 units of packed red blood cells and irradiated platelets #4. Acute urinary tract infection with sepsis, related to enterococcus faecalis, and E. coli #5. Hypothermia possibly related to sepsis, improved #6. Coronary artery disease with previous positive bypass surgery #7. Mild troponin leak, could be related to Covid 19 infection #8. History of AICD placement #9. Hypothyroidism #10. Diabetes mellitus with diabetic retinopathy #11. 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 Gout #13. Anemia of chronic disease #14. Hypothyroidism #15. Acute kidney injury #16. Acute left lower extremity DVT, and patient has a recent history of retroperitoneal bleeding, post IVC filter placement Plan: Patient seems to be a bit more awake today, Still requiring high flow oxygen He was able to take in some oral nutrition Continue current medical treatment Continue antibiotics, steroids, Days labs have been noted, chest x-ray has been reviewed We will place the patient on D5W at 100 and the per hour Continue with current treatment Overall prognosis is guarded I performed a history & physical examination of the patient and discussed their management with my nurse practitioner, Iza Mccarthy. I reviewed the nurse practitioner's note and agree with the documented findings and plan of care. Lung sounds are positive for bibasilar crackles. The findings and the impression was discussed with the patient. I attest to the documentation by the nurse practitioner. Time with Patient: Less than 30
--- NOTE | 2020-12-12 15:47 | PN ---
PROGRESS NOTE Patient is seen for followup for chronic kidney disease. He is currently being treated for COVID pneumonia and has had significant hypoxic respiratory failure, maintained on AIRVO. This morning patient is awake. He is comfortable. He is not in any acute distress. He has an indwelling catheter with 24-hour urine output at about 1.5 L. PHYSICAL EXAMINATION: On examination today, blood pressure was 112/66. Later it dropped to 86/50, heart rate 83 per minute. Patient is afebrile. There is no edema in his lower extremities. He is awake, following commands. LABS: Labs from today show sodium 140, potassium 4.2, BUN 115, serum creatinine 2.89, glucose 38. Calcium 6.2. Ionized calcium 3.4. ASSESSMENT: 1. Acute kidney injury associated with underlying COVID pneumonia and recent prerenal state, status post IV fluids, with some improvement in renal function. Patient remains on D5W. I will continue with the IV fluids for now. 2. Chronic kidney disease, stage 4; baseline creatinine about 2 to 2.5 mg/dL. 3. Hypocalcemia, most likely associated with underlying nutritional vitamin D deficiency. Serum calcium was 6.2. Corrected calcium was 7.4 mg/dL. Patient will be started on calcium supplementation. I will order a 25 hydroxy vitamin D level. 4. COVID pneumonia, maintained on Decadron. 5. Urinary tract infection with urine culture growing Escherichia coli and Enterococcus faecalis, status post antibiotics. PLAN: Check 25 hydroxy vitamin D level. Continue with D5W. Repeat labs in a.m. MMODL / IJN: [id number] /
[2020-12-12 16:45] LABS: Glucose,Whole Blood 169 mg/dL (75-99)
[2020-12-12] MEDS: allopurinoL 100 MG TAB PO SCH (17:48)
--- NOTE | 2020-12-12 18:54 | P.PN ---
Subjective Progress Note Date: 12/12/20 Principal diagnosis: Covid infection. Anemia of chronic kidney disease Mr. Pena cont on high flow O2, very weak Objective - Vital Signs Vital signs: Vital Signs Temp 97.3 F L 12/12/20 18:00 Pulse 84 12/12/20 18:00 Resp 24 12/12/20 18:00 BP 123/77 12/12/20 18:00 Pulse Ox 87 L 12/12/20 18:00 Intake & Output 12/11/20 12/12/20 12/12/20 18:59 06:59 18:59 Intake Total 420 240 Output Total 1500 Balance 420 -1260 Weight 85.2 kg Intake: Oral 420 240 Output: Urine 1500 Other: Voiding Method Indwelling Catheter Indwelling Catheter - Exam deferred - Labs CBC & Chem 7: 12/12/20 06:14 12/12/20 06:14 Labs: Abnormal Lab Results - Last 24 Hours (Table) 12/11/20 12/12/20 12/12/20 Range/Units 20:45 06:14 06:14 WBC 12.5 H (3.8-10.6) k/uL RBC 2.38 L (4.30-5.90) m/uL Hgb 7.7 L (13.0-17.5) gm/dL Hct 22.5 L (39.0-53.0) % RDW 18.8 H (11.5-15.5) % Plt Count 69 L (150-450) k/uL Neutrophils # 11.3 H (1.3-7.7) k/uL Lymphocytes # 0.4 L (1.0-4.8) k/uL BUN 115 H* (9-20) mg/dL Creatinine 2.89 H (0.66-1.25) mg/dL Glucose 38 L* (74-99) mg/dL POC Glucose (mg/dL) 240 H (75-99) mg/dL Calcium 6.2 L* (8.4-10.2) mg/dL Ionized Calcium Lydia (4.5-5.3) mg/dL 12/12/20 12/12/20 12/12/20 Range/Units 06:54 07:09 08:59 WBC (3.8-10.6) k/uL RBC (4.30-5.90) m/uL Hgb (13.0-17.5) gm/dL Hct (39.0-53.0) % RDW (11.5-15.5) % Plt Count (150-450) k/uL Neutrophils # (1.3-7.7) k/uL Lymphocytes # (1.0-4.8) k/uL BUN (9-20) mg/dL Creatinine (0.66-1.25) mg/dL Glucose (74-99) mg/dL POC Glucose (mg/dL) 50 L 53 L (75-99) mg/dL Calcium (8.4-10.2) mg/dL Ionized Calcium Lydia 3.4 L* (4.5-5.3) mg/dL 12/12/20 12/12/20 Range/Units 11:44 16:43 WBC (3.8-10.6) k/uL RBC (4.30-5.90) m/uL Hgb (13.0-17.5) gm/dL Hct (39.0-53.0) % RDW (11.5-15.5) % Plt Count (150-450) k/uL Neutrophils # (1.3-7.7) k/uL Lymphocytes # (1.0-4.8) k/uL BUN (9-20) mg/dL Creatinine (0.66-1.25) mg/dL Glucose (74-99) mg/dL POC Glucose (mg/dL) 106 H 169 H (75-99) mg/dL Calcium (8.4-10.2) mg/dL Ionized Calcium Lydia (4.5-5.3) mg/dL Assessment and Plan (1) Acute on chronic renal failure Current Visit: Yes Status: Acute Priority: High Code(s): N17.9 - ACUTE KIDNEY FAILURE, UNSPECIFIED; N18.9 - CHRONIC KIDNEY DISEASE, UNSPECIFIED SNOMED Code(s): 722444109 (2) DVT (deep venous thrombosis) Current Visit: Yes Status: Acute Priority: High Code(s): I82.409 - ACUTE EMBOLISM AND THOMBOS UNSP DEEP VN UNSP LOWER EXTREMITY SNOMED Code(s): 390084926 (3) Retroperitoneal hematoma Current Visit: Yes Status: Acute Priority: High Code(s): K66.1 - HEMOPERITONEUM SNOMED Code(s): 871363861 (4) Leukocytosis Current Visit: Yes Status: Acute Priority: High Code(s): D72.829 - ELEVATED WHITE BLOOD CELL COUNT, UNSPECIFIED SNOMED Code(s): 439796775 (5) Thrombocytopenia Current Visit: Yes Status: Acute Priority: High Code(s): D69.6 - THROMBOCYTOPENIA, UNSPECIFIED SNOMED Code(s): 557781359 Plan: Recent diagnosis of left lower extremity DVT, placed on anticoagulation, and subsequent retroperitoneal hemorrhage. Patient has had an IVC filter placement as he is not a candidate for anticoagulation. Transfuse for Hgb < 7. Conservative transfusions for patient based on symptoms. Want to avoid unnecessary fluid overload. Transfuse for platelets less than 10,000 or if acute bleeding. Platelets are low secondary to acute infection. Elevated WBC/ANC secondary to infection, no acute intervention from a Hematology standpoint Acute on chronic renal failure. Nephrology following. Aranesp weekly Cont to monitor CBC
--- NOTE | 2020-12-12 20:02 | P.PN ---
Progress Note - Text Progress Note Date: 12/12/20 Chief Complaint: Tired History of presenting complaint: Pleasant 75-year-old patient of Dr. Horta. Chronic stable medical conditions include diabetes, hypothyroid, gout, peripheral neuropathy, diabetic retinopathy, chronic kidney disease, coronary artery disease with a history of bypass and AICD. Patient's is by the bedside who provides most of the history. Patient about 7 days ago on Friday every couple of days before that has started feeling a little bit tired. Motor worse on Friday. Also developed a fever. Decreased appetite diet. Had some diarrhea. Body aches. No loss of smell or taste. Patient did have COVID rapid tested on that was negative. Now becomes short of breath with minimal exertion tired rundown. Patient is tested positive for COVID 19. Initial pulse ox on room air was 98% and then did go down to 94% on 2 L. Admitted with acute bilateral COVID 19 pneumonitis, acute hypoxic respiratory failure, acute myocarditis. Placed on dexamethasone Lovenox. IV Remdesivir. Patient is requiring high flow oxygen. Patient dropped his hemoglobin on the . Receive 2 units of blood. Patient's front of her retroperitoneal bleed. Received a total of 4 units of blood. Left leg DVT-IVC filter placed on December 08. Today: Patient had perked up a bit yesterday. Actually oral intake and improved. Comfort care was deferred. Patient's had been here. Today remains to be bit more awake. Using the remote to change the TV channel. Though significantly tired. Did eat some lunch. Ionized calcium came back to be low. IV calcium ordered Review of systems: Was done for constitutional, cardiovascular, GI, pulmonary. relevant finding as above Active Medications Acetaminophen (Acetaminophen Tab 325 Mg Tab) 650 mg PO Q6HR PRN PRN Reason: Fever and/ or Pain Last Admin: 12/06/20 20:49 Dose: 650 mg Documented by: Allopurinol (Allopurinol 100 Mg Tab) 100 mg PO W/SUPPER MATT Last Admin: 12/12/20 17:48 Dose: 100 mg Documented by: Alprazolam (Alprazolam 0.25 Mg Tab) 0.25 mg PO Q8HR PRN PRN Reason: Anxiety Last Admin: 12/08/20 05:29 Dose: 0.25 mg Documented by: Ascorbic Acid (Ascorbic Acid 500 Mg Tab) 500 mg PO BID [facility] Last Admin: 12/12/20 09:08 Dose: 500 mg Documented by: Atorvastatin Calcium (Atorvastatin 40 Mg Tab) 40 mg PO HS [facility] Last Admin: 12/11/20 20:41 Dose: 40 mg Documented by: Calcium Carbonate/Glycine (Calcium Carbonate 500 Mg Chewable) 1,000 mg PO ONCE PRN PRN Reason: Heartburn Last Admin: 12/12/20 11:44 Dose: 1,000 mg Documented by: Carvedilol (Carvedilol 6.25 Mg Tab) 6.25 mg PO BID-W/MEALS [facility] Last Admin: 12/12/20 17:48 Dose: 6.25 mg Documented by: Cholecalciferol (Cholecalciferol 25 Mcg (1000 Iu) Tablet) 100 mcg PO DAILY [facility] Last Admin: 12/12/20 09:08 Dose: 100 mcg Documented by: Darbepoetin Rizwan (Darbepoetin Rizwan 40 Mcg/0.4 Ml Syringe) 40 mcg SQ Q7D [facility] Last Admin: 12/12/20 11:43 Dose: 40 mcg Documented by: Desmopressin Acetate (Desmopressin Acetate 4 Mcg/Ml Vial (Mdv)) 1 mcg SQ DAILY [facility] Last Admin: 12/12/20 09:17 Dose: 1 mcg Documented by: Dexamethasone Sodium Phosphate (Dexamethasone Sod Phosphate 10 Mg/Ml 1 Ml Vial) 6 mg IV DAILY [facility] Last Admin: 12/12/20 09:08 Dose: 6 mg Documented by: Famotidine (Famotidine 20 Mg Tab) 20 mg PO DAILY [facility] Last Admin: 12/12/20 09:07 Dose: 20 mg Documented by: Ferrous Sulfate (Ferrous Sulfate 325 Mg Tab) 325 mg PO BID@1200,1800 [facility] Last Admin: 12/12/20 17:49 Dose: 325 mg Documented by: Cefepime HCl 2 gm/ Sodium (Chloride) 100 mls @ 25 mls/hr IVPB Q24HR [facility] Last Admin: 12/12/20 11:53 Dose: 25 mls/hr Documented by: Dextrose/Water (Dextrose 5%-Water Iv Soln) 1,000 mls @ 100 mls/hr IV .Q10H [facility] Last Admin: 12/12/20 11:44 Dose: 100 mls/hr Documented by: Insulin Aspart (Insulin Aspart (Novolog) 100 Unit/Ml Vial) [address] [facility]; Protocol Last Admin: 12/12/20 16:48 Dose: Not Given Documented by: Insulin Detemir (Insulin Detemir (Levemir) 100 Unit/Ml Syr) 35 unit SQ DAILY@0700 [facility] Last Admin: 12/12/20 07:01 Dose: Not Given Documented by: Insulin Detemir (Insulin Detemir (Levemir) 100 Unit/Ml Syr) 35 unit SQ [facility] Last Admin: 12/11/20 21:31 Dose: 35 unit Documented by: Levothyroxine Sodium (Levothyroxine 100 Mcg Tab) 100 mcg PO 0630 [facility] Last Admin: 12/12/20 05:25 Dose: 100 mcg Documented by: Linezolid (Linezolid 600 Mg Tab) 600 mg PO Q12HR [facility] Last Admin: 12/12/20 09:08 Dose: 600 mg Documented by: Naloxone HCl (Naloxone 0.4 Mg/Ml 1 Ml Vial) 0.2 mg IV Q2M PRN PRN Reason: Opioid Reversal Pantoprazole Sodium (Pantoprazole 40 Mg/10 Ml Vial) 40 mg IVP BID [facility] Last Admin: 12/12/20 09:09 Dose: 40 mg Documented by: Repaglinide (Repaglinide 1 Mg Tab) 0.25 mg PO AC-BID [facility] Last Admin: 12/12/20 17:49 Dose: 0.25 mg Documented by: Tamsulosin HCl (Tamsulosin 0.4 Mg Cap.Er.24h) 0.4 mg PO [facility] Last Admin: 12/11/20 20:41 Dose: 0.4 mg Documented by: Zinc Sulfate (Zinc Sulfate 220 Mg Cap) 220 mg PO DAILY [facility] Last Admin: 12/12/20 09:08 Dose: 220 mg Documented by: Past medical history to include: Diabetes, hypothyroid, gout, diabetic peripheral neuropathy, diabetic retinopathy, chronic kidney disease stage IV, coronary artery disease with bypass, AICD Social history: No history of smoking or alcohol. . 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 PSYCH: Awake, tired, following commands NEUROLOGICAL: Cranial nerves grossly intact; no facial asymmetry, moving all 4 limbs Rest of exam per pulmonary and nursing INVESTIGATIONS, reviewed in the clinical context: December 10: WBC 16.7 hemoglobin 8.1 platelets 75 potassium 4.9 creatinine 3.15 bun 119 December 08: Accu-Cheks 59, 63 Ultrasound Doppler lower extremity bilateral: Acute DVT in the left lower extremity with hyperexpanded material filling the lumen and absent color flow begins in the superficial femoral vein and more prominent findings in the mid and distal sebaceous femoral vein. December 07: WBC 20.04 hemoglobin 7.6 platelets 66 potassium 4.7 creatinine 3.2 bun 154 calcium 6.1 phosphorus 8 Computed tomography scan of abdomen and pelvis: Fairly moderate to large size pelvic retroperitoneal hematoma with local mass effect. Mild cortical thinning in both the kidneys. November 28: WBC 20.6 hemoglobin 6.1 platelets 77 potassium 5 BUN 151 creatinine 3.61 lactic acid 3.1 calcium 5.8 November 27: WBC 5.4 hemoglobin 9.3 potassium 4.8 creatinine 2.2 LDH 687 CRP 1.2 November 21: Potassium 4.8 creatinine 2.7 2-D echocardiogram: EF 50-55% November 20 Potassium 5.1 creatinine 2.85 d-dimer 0.47 CRP 70 WBC 3.2 hemoglobin 9.7 platelets 164 lymphocytes 0.5 sodium 131 potassium 4.8 bun 61 creatinine 3.37 Troponin I 0.073, 0.073, 0.068 albumin 3.2 Urine protein 2+ moderate blood Coronavirus [PCR] detected EKG tracing personally reviewed by me-normal sinus rhythm Chest x-ray film personally reviewed by me-bilateral infiltrates Renal ultrasound-normal Assessment and plan: -Acute bilateral COVID 19 pneumonia. Symptoms started about a week before presentation.-Slow to respond on IV dexamethasone, subcu Lovenox-held, vitamin C vitamin D Pepcid and zinc. November 20 - Remdesivir -Acute hypoxic respiratory failure, secondary to COVID 19 pneumonia: -Slow to respond Advanced to a Airvo/nonrebreather 60/65% -Acute myocarditis secondary to COVID 19 Telemetry. watch for arrhythmias. -Acute kidney injury likely ATN from sepsis from COVID 19, hypertension.-Slow to respond . IV fluids -Chronic kidney disease stage IV secondary to diabetic kidney disease. Creatinine 2.17 August 2020 Follow renal function -AICD On telemetry -Coronary artery disease with prior history of carotid bypass Continue with Coreg, Lipitor, aspirin -Hypothyroid Continue with Synthroid -Diabetes mellitus type 2, on oral hypoglycemic, uncontrolled with hyperglycemia Follow Accu-Cheks with sliding scale insulin. Increase Levemir to 28 units at night -Chronic gout Continue with allopurinol -Anemia of chronic kidney disease Follow H&H and continue with erythropoietin -Diabetic retinopathy Follow clinically -Diabetic peripheral neuropathy Follow clinically -Hyponatremia from a relative decrease in solute from decreased appetite- improving Saline IV -Metabolic acidosis due to chronic kidney disease Supplement bicarb -Acute retroperitoneal bleed likely from patient being on Lovenox Lovenox has been on hold. 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 Patient not a candidate for anticoagulation. IVC filter, cook/la nena -Hyperphosphatemia due to acute on chronic kidney disease -Thrombocytopenia likely from underlying infection -CODE STATUS DO NOT RESUSCITATE Patient has shown some improvement since yesterday. Still remained signif icantly sick. We'll watch for another 24 hours and take it day by day. Prognosis remains guarded
[2020-12-12 20:09] LABS: Glucose,Whole Blood 148 mg/dL (75-99)
[2020-12-12] MEDS: ATORVASTATIN 40 MG TAB PO SCH (20:40)
[2020-12-12] MEDS: TAMSULOSIN 0.4 MG CAP.ER.24H PO SCH (20:40)
[2020-12-13] MEDS: LINEZOLID 600 MG TAB PO SCH ×3 (00:42→20:48)
[2020-12-13] MEDS: LEVOTHYROXINE 100 MCG TAB PO SCH (05:36)
[2020-12-13 06:41] LABS: Anisocytosis Slight; Basophils % (A) 0 %; Eosinophils # (A) 0.2 k/uL (0-0.7); Eosinophils % (A) 3 %; HCT 24.8 % (39.0-53.0); Lymphocytes # (A) 0.4 k/uL (1.0-4.8); Lymphocytes % (A) 5 %; MCH 31.5 pg (25.0-35.0); MCHC 32.4 g/dL (31.0-37.0); MCV 97.3 fL (80.0-100.0); Macrocytosis Slight; Mean Platelet Volume 9.2; Monocytes # (A) 0.4 k/uL (0-1.0); Monocytes % (A) 5 %; Neutrophils # (A) 7.8 k/uL (1.3-7.7); Neutrophils % (A) 87 %; RBC 2.54 m/uL (4.30-5.90); RDW 19.3 % (11.5-15.5)
[2020-12-13 06:44] LABS: Platelet Count 55 k/uL (150-450)
[2020-12-13 06:50] LABS: Glucose,Whole Blood 133 mg/dL (75-99)
[2020-12-13 07:15] LABS: ALT 51 U/L (4-49); AST 51 U/L (17-59); African American GFR (CKD) 22 (>60 ml/min/1.73 sqM); Albumin 2.4 g/dL (3.5-5.0); Albumin/Globulin Ratio 1.1; Alkaline Phosphatase 95 U/L (38-126); Anion Gap 8 mmol/L; Carbon Dioxide 25 mmol/L (22-30); Chloride 107 mmol/L (98-107); Globulin 2.1 g/dL; Glucose 92 mg/dL (74-99); Non-African American GFR(CKD) 19 (>60 ml/min/1.73 sqM); Potassium 4.4 mmol/L (3.5-5.1); Sodium 140 mmol/L (137-145); Total Bilirubin 1.3 mg/dL (0.2-1.3); Total Protein 4.5 g/dL (6.3-8.2)
[2020-12-13 07:20] LABS: Calcium 6.5 mg/dL (8.4-10.2)
[2020-12-13 07:49] LABS: Blood Urea Nitrogen 111 mg/dL (9-20)
[2020-12-13] MEDS: carvediloL 6.25 MG TAB PO SCH ×2 (08:54→17:44)
[2020-12-13] MEDS: CHOLECALCIFEROL 25 MCG (1000 IU) TABLET PO SCH (08:54)
[2020-12-13] MEDS: ASCORBIC ACID 500 MG TAB PO SCH ×2 (08:54→20:48)
[2020-12-13] MEDS: FAMOTIDINE 20 MG TAB PO SCH (08:54)
[2020-12-13] MEDS: INSULIN DETEMIR (LEVEMIR) 100 UNIT/ML SYR SQ SCH ×2 (08:54→20:48)
[2020-12-13] MEDS: ZINC SULFATE 220 MG CAP PO SCH (08:54)
[2020-12-13] MEDS: INSULIN ASPART (NovoLOG) 100 UNIT/ML VIAL SQ SCH ×4 (08:55→20:49)
[2020-12-13] MEDS: REPAGLINIDE 1 MG TAB PO SCH ×2 (08:55→17:44)
[2020-12-13] MEDS: DEXTROSE 5% IN WATER 1,000 ML IV SCH ×2 (10:57→14:13)
--- NOTE | 2020-12-13 11:04 | PN ---
PROGRESS NOTE DATE OF SERVICE: 12/13/2020 REASON FOR FOLLOWUP: Pneumonia. INTERVAL HISTORY: The patient is currently afebrile. The patient remains to be on nonrebreather. However, he is more awake and alert. Asked specifically, he denies any chest pain or cough. No abdominal pain or diarrhea. PHYSICAL EXAMINATION: Blood pressure 103/63 with a pulse of 81, temperature 96.8. He is 89% on 90% FiO2. General description is an elderly male lying in bed in no distress. RESPIRATORY SYSTEM: Unlabored breathing, clear to auscultation anteriorly. HEART: S1, S2. Regular rate and rhythm. ABDOMEN: Soft, no guarding or rigidity. EXTREMITIES: No edema of feet. LABS: Hemoglobin is 8, white count 9.0, BUN of 111, creatinine 3.02. DIAGNOSTIC IMPRESSION AND PLAN: Patient with sepsis in this patient admission to hospital with COVID-19 pneumonia with concern for possible secondary bacterial pneumonia. The patient white count normalized. Currently on cefepime and Zyvox. Try to obtain a sputum to narrow down with antibiotics and monitor his clinical course closely. Continue supportive care. MMODL / IJN: [id number] / MTDD
[2020-12-13] MEDS: PANTOPRAZOLE 40 MG/10 ML VIAL IVP SCH ×2 (11:06→20:48)
[2020-12-13 11:18] LABS: Glucose,Whole Blood 292 mg/dL (75-99)
[2020-12-13] MEDS: FERROUS SULFATE 325 MG TAB PO SCH ×2 (12:25→17:44)
[2020-12-13] MEDS: DESMOPRESSIN ACETATE 4 MCG/ML VIAL (MDV) SQ SCH (12:25)
[2020-12-13] MEDS: DEXAMETHASONE SOD PHOSPHATE 10 MG/ML 1 ML VIAL IV SCH (14:11)
[2020-12-13] MEDS: CEFEPIME 2 GM in SODIUM CHLORIDE 0.9% 100 ML IVPB SCH (14:12)
--- NOTE | 2020-12-13 14:35 | P.PN ---
Subjective Progress Note Date: 12/13/20 Principal diagnosis: Covid infection. Anemia of chronic kidney disease Mr. Pena cont on high flow O2, he is in chair today, he is changing channel on TV, he responded to my questions with few words, breathing is labored Objective - Vital Signs Vital signs: Vital Signs Temp 98.5 F 12/13/20 14:00 Pulse 80 12/13/20 14:00 Resp 20 12/13/20 14:00 BP 137/69 12/13/20 14:00 Pulse Ox 95 12/13/20 14:00 Intake & Output 12/12/20 12/13/20 12/13/20 18:59 06:59 18:59 Intake Total 240 Balance 240 Intake: Oral 240 Other: Voiding Method Indwelling Catheter Indwelling Catheter - Constitutional General appearance: Present: average body habitus, cooperative, mild distress - EENT Eyes: Present: anicteric sclerae, EOMI ENT: Present: hearing grossly normal - Respiratory Respiratory: bilateral: diminished, other (weak, labored) - Cardiovascular Heart sounds: normal: S1, S2 - Integumentary Integumentary: Present: pale - Neurologic Neurologic: Present: CNII-XII intact - Musculoskeletal Musculoskeletal: Present: generalized weakness - Psychiatric Psychiatric: Present: A&O x's 3 - Labs CBC & Chem 7: 12/13/20 06:09 12/13/20 06:09 Labs: Abnormal Lab Results - Last 24 Hours (Table) 12/12/20 12/12/20 12/13/20 Range/Units 16:43 20:07 06:09 RBC (4.30-5.90) m/uL Hgb (13.0-17.5) gm/dL Hct (39.0-53.0) % RDW (11.5-15.5) % Plt Count (150-450) k/uL Neutrophils # (1.3-7.7) k/uL Lymphocytes # (1.0-4.8) k/uL BUN 111 H* (9-20) mg/dL Creatinine 3.02 H (0.66-1.25) mg/dL POC Glucose (mg/dL) 169 H 148 H (75-99) mg/dL Calcium 6.5 L (8.4-10.2) mg/dL ALT 51 H (4-49) U/L Total Protein 4.5 L (6.3-8.2) g/dL Albumin 2.4 L (3.5-5.0) g/dL 12/13/20 12/13/20 12/13/20 Range/Units 06:09 06:46 11:17 RBC 2.54 L (4.30-5.90) m/uL Hgb 8.0 L (13.0-17.5) gm/dL Hct 24.8 L (39.0-53.0) % RDW 19.3 H (11.5-15.5) % Plt Count 55 L (150-450) k/uL Neutrophils # 7.8 H (1.3-7.7) k/uL Lymphocytes # 0.4 L (1.0-4.8) k/uL BUN (9-20) mg/dL Creatinine (0.66-1.25) mg/dL POC Glucose (mg/dL) 133 H 292 H (75-99) mg/dL Calcium (8.4-10.2) mg/dL ALT (4-49) U/L Total Protein (6.3-8.2) g/dL Albumin (3.5-5.0) g/dL Assessment and Plan (1) Acute on chronic renal failure Current Visit: Yes Status: Acute Priority: High Code(s): N17.9 - ACUTE K IDNEY FAILURE, UNSPECIFIED; N18.9 - CHRONIC KIDNEY DISEASE, UNSPECIFIED SNOMED Code(s): 935624217 (2) DVT (deep venous thrombosis) Current Visit: Yes Status: Acute Priority: High Code(s): I82.409 - ACUTE EMBOLISM AND THOMBOS UNSP DEEP VN UNSP LOWER EXTREMITY SNOMED Code(s): 775267773 (3) Retroperitoneal hematoma Current Visit: Yes Status: Acute Priority: High Code(s): K66.1 - HEMOPERITONEUM SNOMED Code(s): 204077834 (4) Leukocytosis Current Visit: Yes Status: Acute Priority: High Code(s): D72.829 - ELEVATED WHITE BLOOD CELL COUNT, UNSPECIFIED SNOMED Code(s): 909525323 (5) Thrombocytopenia Current Visit: Yes Status: Acute Priority: High Code(s): D69.6 - THROMBOCYTOPENIA, UNSPECIFIED SNOMED Code(s): 626432945 Plan: Recent diagnosis of left lower extremity DVT, placed on anticoagulation, and subsequent retroperitoneal hemorrhage. Patient has had an IVC filter placement as he is not a candidate for anticoagulation. Transfuse for Hgb < 7. Conservative transfusions for patient based on symptoms. Want to avoid unnecessary fluid overload. Transfuse for platelets less than 10,000 or if acute bleeding. Platelets are low secondary to acute infection. Elevated WBC/ANC secondary to infection, no acute intervention from a Hematology standpoint Acute on chronic renal failure. Nephrology following. Dev weekly Fibrinogen 305 Cont to monitor CBC
--- NOTE | 2020-12-13 14:38 | P.PN ---
<Namrata Odell - Last Filed: 12/13/20 14:35> Subjective Progress Note Date: 12/13/20 CHIEF COMPLAINT: COVID-19 pneumonia HISTORY OF PRESENT ILLNESS: The patient is a 75 year old male with COVID pneumonia. Surgical service is following in regards to patient's retroperitoneal hematoma. Patient denies any abdominal pain. Denies any back pain. Patient is more awake today. Sitting up in bed. Able to answer questions. He has persistent global decline. Afebrile. He is on an AIRVO and nonrebreather. He has received blood transfusions and platelet transfusion during this admission as well as a DDAVP and Aranesp. Patient is on a chopped dysphagia diet. He continues to have poor oral intake. He ate only a few bites of his breakfast. Dietitian has been consulted to complete a calorie count. Afebrile. WBC 9 hemoglobin 8 platelets 55 PHYSICAL EXAM: VITAL SIGNS: Reviewed GENERAL: Well-developed in no acute distress. HEENT: No sclera icterus. Extraocular movements grossly intact. Moist buccal mucosa. Head is atraumatic, normocephalic. Hears conversational speech. No nasal drainage. NECK: Supple without lymphadenopathy. CHEST: Non-labored respirations and equal bilateral excursions. CARDIOVASCULAR: Palpable 2+ radial pulses. ABDOMEN: Soft. Nondistended. Nontender. MUSCULOSKELETAL: No clubbing or cyanosis. NEUROLOGIC: No focal or lateralizing signs. Cranial nerves II through XII grossly intact. Patient is more awake and able to answer questions SKIN: Well perfused. Good skin turgor. ASSESSMENT: 1. Retroperitoneal hematoma 2. Acute blood loss anemia secondary to Retroperitoneal bleed 3. COVID-19 pneumonia 4. Acute hypoxic respiratory failure secondary to COVID-19 pneumonia 5. Acute myocarditis 6. Acute kidney injury followed by nephrology 7. Chronic kidney disease stage IV 8. History of AICD 9. History of diabetes mellitus type 2 10. Thrombocytopenia 11. Acute left lower extremity DVT status post IVC filter placement PLAN: -No surgical intervention planned for the retroperitoneal hematoma -We'll continue to observe patient -Consult dietitian to complete calorie count -Patient is being assessed for possible PEG tube placement if he does not meet his nutritional needs Physician Head Bellhop Captain note has been reviewed by physician. Signing provider agrees with the documented findings, assessment, and plan of care. Objective - Vital Signs Vital signs: Vital Signs Temp 98.5 F 12/13/20 14:00 Pulse 80 12/13/20 14:00 Resp 20 12/13/20 14:00 BP 137/69 12/13/20 14:00 Pulse Ox 95 12/13/20 14:00 Intake & Output 12/12/20 12/13/20 12/13/20 18:59 06:59 18:59 Intake Total 240 Balance 240 Intake: Oral 240 Other: Voiding Method Indwelling Catheter Indwelling Catheter - Labs CBC & Chem 7: 12/13/20 06:09 12/13/20 06:09 Labs: Abnormal Lab Results - Last 24 Hours (Table) 12/12/20 12/12/20 12/13/20 Range/Units 16:43 20:07 06:09 RBC (4.30-5.90) m/uL Hgb (13.0-17.5) gm/dL Hct (39.0-53.0) % RDW (11.5-15.5) % Plt Count (150-450) k/uL Neutrophils # (1.3-7.7) k/uL Lymphocytes # (1.0-4.8) k/uL BUN 111 H* (9-20) mg/dL Creatinine 3.02 H (0.66-1.25) mg/dL POC Glucose (mg/dL) 169 H 148 H (75-99) mg/dL Calcium 6.5 L (8.4-10.2) mg/dL ALT 51 H (4-49) U/L Total Protein 4.5 L (6.3-8.2) g/dL Albumin 2.4 L (3.5-5.0) g/dL 12/13/20 12/13/20 12/13/20 Range/Units 06:09 06:46 11:17 RBC 2.54 L (4.30-5.90) m/uL Hgb 8.0 L (13.0-17.5) gm/dL Hct 24.8 L (39.0-53.0) % RDW 19.3 H (11.5-15.5) % Plt Count 55 L (150-450) k/uL Neutrophils # 7.8 H (1.3-7.7) k/uL Lymphocytes # 0.4 L (1.0-4.8) k/uL BUN (9-20) mg/dL Creatinine (0.66-1.25) mg/dL POC Glucose (mg/dL) 133 H 292 H (75-99) mg/dL Calcium (8.4-10.2) mg/dL ALT (4-49) U/L Total Protein (6.3-8.2) g/dL Albumin (3.5-5.0) g/dL <Yanet Levin - Last Filed: 01/27/21 21:25> Subjective Calorie count was being performed. At this time, platelet still insufficient. Recommend noninvasive placement of feeding tube pending results of calorie count. Objective - Vital Signs Vital signs: Vital Signs Temp 97.5 F L 12/18/20 05:41 Pulse 83 12/18/20 08:00 Resp 30 H 12/20/20 02:30 BP 114/60 12/18/20 05:41 Pulse Ox 89 L 12/18/20 05:41 - Labs CBC & Chem 7: 12/16/20 06:59 12/18/20 07:14
--- NOTE | 2020-12-13 14:46 | PN ---
PROGRESS NOTE Patient is seen for followup for chronic kidney disease, currently being treated for COVID pneumonia. Renal function has been slightly weaker than baseline, mostly stable for the past few days. Serum creatinine increased to 3.0 today from 2.8 yesterday, but it has mostly been staying around 3. The patient is currently awake. No significant changes in his oxygen requirements. He is maintained on AIRVO. Vital signs are reviewed. Blood pressure 106/57, heart rate 91 per minute. Patient is not examined. I did talk to him and he is appropriate and answering questions. LABS: Labs show sodium 140, potassium 4.4, chloride 107, BUN 111, serum creatinine 3.02. ASSESSMENT: 1. Acute kidney injury associated with underlying COVID infection mostly acute tubular necrosis with a prerenal element, maintained on IV fluids. 2. COVID pneumonia continues to require large amounts of oxygen. 3. Hypocalcemia with no significant nutrition vitamin D deficiency maintained on Tums. 4. Urinary tract infection. Urine culture growing Escherichia coli and Enterococcus faecalis, status post antibiotics. 5. Generalized debility. PLAN: Continue with the D5W. Repeat labs in a.m. MMODL / IJN: [id number] /
--- NOTE | 2020-12-13 15:56 | P.PN ---
Subjective Progress Note Date: 12/13/20 Principal diagnosis: Acute COVID-19 pneumonia Acute COVID-19 pneumonia 75-year-old male patient, started having symptoms approximately a week ago when he started feeling a bit tired and fatigued. He subsequently developed fever and diminished appetite and some diarrhea. The patient tested positive for COVID 19 infection 4 days ago and this was again confirmed on 11/19/2020. The patient came into the emergency with weakness and shortness of breath. The patient is currently on 2 L of oxygen by nasal cannula. He is known to have CAD, previous bypass, aortic, chronic disease, diabetes mellitus and diabetic retinopathy and neuropathy and hypothyroidism and gout. Lactate was 0.7, there d-dimer was 0.6, white cell count was at 3.2 with a lymphopenia, creatinine was at 3.37 with a mean of 61. He is also on multivitamins. Chest x-ray showing diffuse bilateral pulmonary infiltrates. On today's evaluation of 4 [id number],021 the patient is currently on oxygen at 4 L per minute. The patient is quite comfortable. Pulse ox is around 95% and FiO2 can be obviously weaned off. The patient is being seen for a follow-up. The patient is currently being treated with Decadron 6 mg IV every 24 hours. The patient is also on Lovenox 40 mg subcu daily and the patient is also on Remdesivir day #2. No follow-up chest x-rays available from today. The rest of the labs are showing chronic kidney disease with a creatinine of 2.7. The patient has chronic metabolic acidosis which is of a non-anion gap type. On 11/22/2020 patient seen in follow-up. Is comfortable, still desat easily, feels tired, but no acute distress, today's labs have been reviewed, d-dimer 0.69, CRP is 35.6, no LDH. Has not had a chest x-ray, he is currently on 7 L, his pulse ox is 89%, no fever, remains on Remdesivir, today is day 3 of treatment. On 11/23/2020 patient is pretty stable, he remains on 5 L of oxygen, her pulse ox 89-90%, he is breathing comfortably, no worsening dyspnea, his 0.9, saline at 60 per hour, patient completed Remdesivir treatment, he remains on steroids, and prophylactic Lovenox. No worsening dyspnea, today's labs have been reviewed, d- dimer is 1.90, renal profile is slightly improved from yesterday, patient continues on IV fluids, no nausea vomiting or diarrhea, CRP is trending down, LDH with today is pending. On 11/25/2000 patient seen in follow-up on medical surgical floor, he is sitting up in the chair, appears to be breathing comfortably although his oxygen requirements have increased, and is currently on 15 L per high flow nasal cannula up from 12 L from yesterday, he denies any worsening dyspnea, lung sounds reveal diffuse bilateral crackles, no chest discomfort, no signs of any respiratory distress. No cough, no wheezing, today's chest x-ray shows bilateral mid to lower lung increased opacities, findings consistent with COVID- 19 pneumonia, the findings are stable in appearance. Follow-up inflammatory markers showed d-dimer of 19.16, LDH is up to 2028, CRP is 2.4. Patient has completed his Remdesivir course, she remains on daily dose of Decadron 6 mg, and Lovenox 30 mg daily, his renal function appears to be relatively stable, his bun is 64, and creatinine is 2.12 On 11/26/2020 patient seen in follow-up on medical surgical floor, he sitting up in the chair, he is breathing comfortably, he is currently down to 13 L, and his pulse ox is 90-94%, his been afebrile, overall she looks stable, he does not appear to be in any acute distress, he is a d-dimer has trended up, and on today's labs it is up to 30.3, and his Lovenox dose will be adjusted. Today's inflammatory markers are improving. He remains on daily dose IV Decadron 6 mg daily, Lovenox, multivitamins, and his IV fluids are infusing at a rate of 60 ML per hour, no new chest x-ray today, his kidney function shows slight improvement On 11/27/2000 patient seen in follow-up on medical surgical floor, he remains on high flow oxygen 15 L, and the nonrebreather mask, he does desat when he removes his nonrebreather mask down to 86% however he denies any dyspnea, he does not feel stressed at all, and looks very comfortable, he sitting up in the recliner, awake and alert, oriented 3, he is afebrile, hemodynamically has been stable, he has no specific complaints, and his today's chest x-ray shows cardiomegaly and low lung volumes with bilateral mid to lower lung reticular and confluent opacities consistent with COVID-19 pneumonia with no change from previousexam. Today's labs have been reviewed, white blood cell count is 5.45, hemoglobin is 9.3, no d-dimer today, but yesterday's d-dimer was quite elevated at 30.3, and his Lovenox dose was adjusted and increased to 40 mg twice a day, his electrolyte panel shows CO2 of 28.1, but prostate electrolytes are within normal limits, B1 is 84, creatinine is 2.2, his LDH is down to 687, improving, his CRP is 1.2 on today's labs. He continues on Decadron 6 mg daily, he is on Lovenox 40 mg twice a day, and he is receiving IV hydration at 60 ML per hour, nephrology is following On 11/28/2020 patient seen in follow-up on medical surgical floor, he is resting comfortably in bed, he is currently on 15 L high flow and 100% nonrebreather, he looks quite comfortable, he denies any shortness of breath, minimal cough, he is breathing comfortably, his pro-calcitonin level was low, his inflammatory markers were improving, his d-dimer was elevated on 11/26/2020 patient is on 40 mg of Lovenox twice daily, Lasix is at 40 mg every 12 hours patient is in negative fluid balance. No new chest x-ray today On 11/29/2000 patient seen in follow-up on medical surgical floor, is currently on 15 L per high flow nasal cannula, and 100 nonrebreather mask, and he is satting about 93%, he does not feel short of breath, he seems to be breathing very comfortably, he is afebrile, hemodynamically stable, his chest x-ray today shows low lung volumes with bilateral mid to lower lung reticular and confluent opacities consistent with COVID-19 pneumonia. Findings are similar to his previous chest x-ray, lower extremity Dopplers were completed and he was negative for DVT. His d-dimer is trending down, and is down to 16.0. The rest of his lab work has been reviewed, showing white blood cell count of 8.7, hemoglobin of 10.5, sodium is 136, potassium is 4.5, chloride is 98, BUN of 108, and creatinine is 3.2, his calcitonin level was negative at 0.10, his inflammatory markers were improving since admission. No nausea vomiting or diarrhea, and patient continues on daily dose of IV Decadron 6 mg, continues on Lovenox 40 mg twice daily, she was given a dose of Lasix yesterday and he was started on maintenance dose of IV Lasix On 11/30/2020 patient seen in follow-up on medical surgical floor, he is resting comfortably in bed, currently off the nonrebreather mask, on 15 L per high flow nasal cannula with his pulse ox is 90-91%, he looks very comfortable, breathing comfortably, no worsening dyspnea. Cooperative chest discomfort, no cough. No fever or chills. No acute events overnight, patient did receive 1 dose of Toci yesterday 720 mg, he remains on Lovenox 40 mg twice a day, and daily dose Decadron, today's labs have been reviewed, showing white blood cell, 10.1, hemoglobin of 10.3, d-dimer is trending down, down to 11.4, electrolytes are within normal limits, renal profile shows some improvement, pro-Joshua was negative, inflammatory markers are trending down, patient denies any specific complaints On 12/01/2020 patient seen in follow-up on medical surgical floor, is currently on 15 L per high flow nasal cannula and nonrebreather mask, and his pulse ox is 100%, he is breathing very comfortably, denies any cough, denies any chest pain, has had no fever or chills, no nausea vomiting diarrhea, no abdominal pain, no new chest x-rays, his labs have been reviewed, d-dimer today is 12.5, electroly angel are unremarkable, his renal profile slightly improved, his BUN is 113, and creatinine is 2.59. On 12/02/2020 patient seen in follow-up on medical surgical floor, he is currently back on 11 L of oxygen resting comfortably in bed, in comfortably, in his pulse ox was 99%, we dropped the FiO2 down to 8 L, and we instructed the nursing staff to continue weaning it to maintain O2 saturations at or above 90%, patient has no specific complaints, no cough, no chest discomfort, no fever, no chills no headaches, no nausea vomiting or diarrhea. Renal function continues to be impaired, and nephrology is following, his BUN is 1:30, and creatinine is 2.70, electrolytes were unremarkable on today's labs. No new chest x-ray today. Patient remains on IV Decadron 6 mg, and Lovenox is currently at 40 mg twice daily. Follow-up d-dimer is pending for today. On the 12/04/2020 patient seen in follow-up on medical surgical floor, he is currently on 7 L per high flow nasal cannula, his pulse ox is about 86-95%, although she looks very pale, his hemoglobin today is down to 6.0 and patient has not had any obvious bleeding, no hematemesis, no melena, abdomen is soft, no abdominal pain, he is a bit drowsy, he is mildly short of breath but does not appear to be in any acute distress, he was also found to be hypothermic, and appear hugger was applied, he received a unit of packed red blood cells, on in the 2 units are pending for transfusion today, today's labs have been reviewed, his white count is 23.6, his platelet count is down to 93,000, his neutrophil count is 21.5, a remains lymphopenic as well, and lymphocyte count is 0.48, serum sodium is 131, potassium is 5.0, chloride is 106, CO2 is 15, creatinine is 148, and creatinine of 3.36, serum calcium is 5.9, his last LDH from 12/03/2020 was 1654, and CRP was 0.9, CA urinalysis was sent and there is possibility of urinary tract infection with the large amounts of leukocytes esterase, white blood cells and white blood cells in clumps and many bacteria. Patient was started on cefepime, and Zyvox, ID service is following. Patient was increasingly more acidotic and he was given 1 puff sodium bicarbonates IV push, and was started on D5W with 3 A of bicarbonate at a rate of 50 ML per hour. No nausea vomiting or diarrhea. He received a dose of vancomycin yesterday, and vancomycin is being adjusted per pharmacy. Blood cultures are negative thus far On 12/05/2020 patient seen in follow-up on medical surgical floor. He is breat carla comfortably, he is resting in bed, he continues to require a bear hugger his current temp is currently 96.3 degrees utilizing a temporal artery. No obvious bleeding, patient is passing dark stools, however he also takes iron supplements, and the nurse states his stools are not obviously black and tarry, no hematemesis, abdomen is soft, no hematuria. No altered mentation, he is awake and alert, he is answering questions appropriately, he denies any worsening dyspnea, urine and blood cultures have been sent and are pending at this time, and patient is currently covered with cefepime, and Zyvox. Patient received 2 A of sodium bicarbonate this morning. Today's labs show a white blood cell count of 25.1, hemoglobin of 7.5, sodium is 132, potassium is 5.6, CO2 was 14, BUN was 156, creatinine is 3.49, lactic acid was 2.6, pro-calcitonin level is low at 0.28. Urinalysis suggest possibility of urinary tract infection. On 12/06/2020 patient seen in follow-up on medical surgical floor, he is resting quietly in bed, he still on high flow oxygen, currently at 15 L, his pulse ox is 94%, he states he is tired and sleepy, his hemoglobin is down to 6.1 today and again there is no clear evidence of bleeding, abdomen is soft, no hematemesis, no melena, patient is being transfused with 1 unit of packed red blood cells this morning, his white blood cell count was 20.6, his platelet count is 77, his anticoagulation has been on hold for last 48 hours, his BUN is up to 151, creatinine is 3.61. Plasma lactic acid was 3.1, patient is on antibiotics for possibility of sepsis, likely related to urinary tract infection, his urine culture showing gram-negative bacilli, fungal cultures pending, blood cultures have shown no growth. She remains on Decadron, and he is on cefepime and Zyvox. He received some fluid boluses 500 at 9:00 last night, and another 500 mL fluid bolus in the morning, she remains on D5W with 3 units of bicarbonate at a rate of 50 ML per hour. Nephrology is following. GI service has been consulted and CT of the demented pelvis are pending at this time On 12/07/2020 patient seen in follow-up on medical surgical floor, he is awake and alert, he looks better today, more awake, on today's exam, denies any worsening dyspnea, he is currently on 13 L of oxygen his pulse ox is 93%, his hemoglobin today is 7.6, patient 2 units of packed red blood cells yesterday and 2 units the day prior. His CT of the abdomen showed evidence of fairly moderate to large size left pelvic retroperitoneal hematoma with local mass effect, suggesting subacute possible acute on chronic etiology. Surgery was consulted and recommended conservative treatment. Patient has been off all anticoagulation, in his left leg on today's exam is quite large and swollen and for that reason lower extremity Doppler was obtained revealing acute DVT in the left leg. Resting blood work has been reviewed showing white blood cell count still elevated at 20.04, hemoglobin is 7.6 as mentioned above, platelet count is 66, today's d-dimer is 6.06 resting blood work is still pending. Hematology is following. Patient was also found to be septic, cultures showed Enterococcus faecalis, and patient is on a combination of cefepime and Zyvox, ID service is following. Appetite is poor, but his had no nausea vomiting or diarrhea, he is currently on D5W with 3 A of bicarbonate at a rate of 50 ML per hour. On 12/10/2020 patient seen in follow-up on medical surgical floor. Patient is very drowsy, he is poorly responsive, he remains on high flow oxygen at 60 L, and FiO2 of 78% in addition to nonrebreather mask, his pulse ox is around 90- 91%, he is on D5W at a rate of 50 ML per hour, as been hypothermic, with a temp as low as 95.6F, does not appear to be in any acute respiratory distress, however overall she seems quite debilitated, very weak and fatigued, he has not been eating. Overall his condition has been declining, patient is been maintained on steroids, his anticoagulation was placed on hold related to retroperitoneal bleeding, and patient required transfusions with blood, he then developed a DVT in his left lower extremity however in view of his bleeding he was not able to go back on anticoagulants and IVC filter was placed. Today's hemoglobin is 8.1, yesterday he received 1 more unit of blood for a hemoglobin of 6.8, and a unit of platelets. The platelet count was 69, and 75 on today's labs. No abdominal pain. Patient continues on cefepime and Zyvox, his urine culture was positive for E. coli and Enterococcus faecalis, blood cultures were negative On 12/12/2020 patient seen in follow-up on medical surgical floor. This was consulted and patient was seen by the hospice, however clinically he is looking a bit better today, and he is currently more awake and patient was actually hungry and was able to consume some oral nutrition. Patient is currently on Airvo at 60 L and FiO2 of 55% in addition to the nonrebreather mask, pulse ox is between 82-85%, afebrile, blood pressure is currently 136/64. Chest x-ray shows persistent patchy basilar infiltrates. Patient remains on antibiotics in the form of cefepime and Zyvox. His urine culture showed E. coli and Enterococcus faecalis, blood cultures show no growth. Today's labs have been reviewed, hence the renal function has actually improved since yesterday, his B1 is 115, creatinine is 2.89. Electrolytes are within normal limits, his platelet cell count is improving, and is down to 12.5, hemoglobin is 7.7, platelet count is 69. On 12/13/2020 patient seen in follow-up on medical surgical floor. Patient is sitting up in the chair, he is looking quite awake, and in no acute distress. Is on Airvo with 60 L and FiO2 of 90% and is looking quite comfortable. He's had no fever or chills, vital signs have been stable, he denies any dyspnea, he is breathing comfortably, no cough, no chest pain, he states he ate a good breakfast this morning. No nausea vomiting or diarrhea, he continues on cefepime, his had no fever chills, ID service is following, he remains on Decadron 6 mg daily, he is on D5 W at 100 ML per hour. Urine cultures were positive for E. coli and Enterococcus faecalis, blood cultures have been negative. White blood cell count of 9.0, hemoglobin is 8.0, electrolytes are within normal limits, BUN of 111, creatinine is 3.02. Objective - Vital Signs Vital signs: Vital Signs Temp 98.5 F 12/13/20 14:00 Pulse 80 12/13/20 14:00 Resp 20 12/13/20 14:00 BP 137/69 12/13/20 14:00 Pulse Ox 95 12/13/20 14:00 Intake & Output 12/12/20 12/13/20 12/13/20 18:59 06:59 18:59 Intake Total 240 Balance 240 Intake: Oral 240 Other: Voiding Method Indwelling Catheter Indwelling Catheter - Exam GENERAL EXAM: 75-year-old white male, a more awake on today's exam, and answering simple questions currently on Airvo at 60 l, fio2 55%, in addition to 100% nonrebreather mask, and his pulse ox is between 82-85% HEAD: Normocephalic/atraumatic. EYES: Normal reaction of pupils, equal size. Conjunctiva pink, sclera white. NOSE: Clear with pink turbinates. THROAT: No erythema or exudates. NECK: No masses, no JVD, no thyroid enlargement, no adenopathy. CHEST: No chest wall deformity. Symmetrical expansion. LUNGS: Equal air entry with bilateral crackles CVS: Regular rate and rhythm, normal S1 and S2, no gallops, no murmurs, no rubs ABDOMEN: Soft, nontender. No hepatosplenomegaly, normal bowel sounds, no guarding or rigidity. EXTREMITIES: No clubbing, left leg is quite swollen, and tight, with suspicion of DVT no cyanosis, 2+ pulses and upper and lower extremities. MUSCULOSKELETAL: Muscle strength and tone normal. SPINE: No scoliosis or deformity SKIN: No rashes CENTRAL NERVOUS SYSTEM: Weak but more awake on today's exam on high flow oxygen per Airvo. No focal deficits, tone is normal in all 4 extremities. - Labs CBC & Chem 7: 12/13/20 06:09 12/13/20 06:09 Labs: Abnormal Lab Results - Last 24 Hours (Table) 12/12/20 12/12/20 12/13/20 Range/Units 16:43 20:07 06:09 RBC (4.30-5.90) m/uL Hgb (13.0-17.5) gm/dL Hct (39.0-53.0) % RDW (11.5-15.5) % Plt Count (150-450) k/uL Neutrophils # (1.3-7.7) k/uL Lymphocytes # (1.0-4.8) k/uL BUN 111 H* (9-20) mg/dL Creatinine 3.02 H (0.66-1.25) mg/dL POC Glucose (mg/dL) 169 H 148 H (75-99) mg/dL Calcium 6.5 L (8.4-10.2) mg/dL ALT 51 H (4-49) U/L Total Protein 4.5 L (6.3-8.2) g/dL Albumin 2.4 L (3.5-5.0) g/dL 12/13/20 12/13/20 12/13/20 Range/Units 06:09 06:46 11:17 RBC 2.54 L (4.30-5.90) m/uL Hgb 8.0 L (13.0-17.5) gm/dL Hct 24.8 L (39.0-53.0) % RDW 19.3 H (11.5-15.5) % Plt Count 55 L (150-450) k/uL Neutrophils # 7.8 H (1.3-7.7) k/uL Lymphocytes # 0.4 L (1.0-4.8) k/uL BUN (9-20) mg/dL Creatinine (0.66-1.25) mg/dL POC Glucose (mg/dL) 133 H 292 H (75-99) mg/dL Calcium (8.4-10.2) mg/dL ALT (4-49) U/L Total Protein (6.3-8.2) g/dL Albumin (3.5-5.0) g/dL Assessment and Plan Plan: Assessment: #1. acute COVID 19 related pneumonia with secondary shortness of breath and hypoxic respiratory failure the patient's symptoms of generalized weakness and dehydration, currently on 4 L of oxygen by nasal cannula, patient was started on Remdesivir on 11/20/2020, Toci on 11/29/2020. Patient remains on Airvo at 60 L and FiO2 of 55% in addition to 100% nonrebreather mask #2. acute hypoxic respiratory failure, persistent #3. Acute blood loss anemia, related to large retroperitoneal hematoma, status post transfusion with 5 units of packed red blood cells and irradiated platelets #4. Acute urinary tract infection with sepsis, related to enterococcus faecalis, and E. coli #5. Hypothermia possibly related to sepsis, improved #6. Coronary artery disease with previous positive bypass surgery #7. Mild troponin leak, could be related to Covid 19 infection #8. History of AICD placement #9. Hypothyroidism #10. Diabetes mellitus with diabetic retinopathy #11. 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 Gout #13. Anemia of chronic disease #14. Hypothyroidism #15. Acute kidney injury #16. Acute left lower extremity DVT, and patient has a recent history of retroperitoneal bleeding, post IVC filter placement Plan: Patient remains on high flow oxygen He clinically looks better, more awake, denies any distress He sitting up in a chair His appetite is fair Vital signs have been stable no fever or chills Continue antibiotics per ID service recommendations Continue Decadron We'll continue to follow and make further recommendations I performed a history & physical examination of the patient and discussed their management with my nurse practitioner, Iza Mccarthy. I reviewed the nurse practitioner's note and agree with the documented findings and plan of care. Lung sounds are positive for bibasilar crackles. The findings and the impression was discussed with the patient. I attest to the documentation by the nurse practitioner. Time with Patient: Less than 30
[2020-12-13 16:41] LABS: Glucose,Whole Blood 268 mg/dL (75-99)
[2020-12-13] MEDS: allopurinoL 100 MG TAB PO SCH (17:44)
[2020-12-13 20:09] LABS: Glucose,Whole Blood 273 mg/dL (75-99)
[2020-12-13] MEDS: TAMSULOSIN 0.4 MG CAP.ER.24H PO SCH (20:48)
[2020-12-13] MEDS: ATORVASTATIN 40 MG TAB PO SCH (20:48)
--- NOTE | 2020-12-13 22:03 | P.PN ---
Progress Note - Text Progress Note Date: 12/13/20 Chief Complaint: Tired History of presenting complaint: Pleasant 75-year-old patient of Dr. Horta. Chronic stable medical conditions include diabetes, hypothyroid, gout, peripheral neuropathy, diabetic retinopathy, chronic kidney disease, coronary artery disease with a history of bypass and AICD. Patient's is by the bedside who provides most of the history. Patient about 7 days ago on Friday every couple of days before that has started feeling a little bit tired. Motor worse on Friday. Also developed a fever. Decreased appetite diet. Had some diarrhea. Body aches. No loss of smell or taste. Patient did have COVID rapid tested on that was negative. Now becomes short of breath with minimal exertion tired rundown. Patient is tested positive for COVID 19. Initial pulse ox on room air was 98% and then did go down to 94% on 2 L. Admitted with acute bilateral COVID 19 pneumonitis, acute hypoxic respiratory failure, acute myocarditis. Placed on dexamethasone Lovenox. IV Remdesivir. Patient is requiring high flow oxygen. Patient dropped his hemoglobin on the . Receive 2 units of blood. Patient's front of her retroperitoneal bleed. Received a total of 4 units of blood. Left leg DVT-IVC filter placed on December 08. Today: Sitting up in a chair. Awake. Tired. Decreased oral intake Review of systems: Was done for constitutional, cardiovascular, GI, pulmonary. relevant finding as above Active Medications Acetaminophen (Acetaminophen Tab 325 Mg Tab) 650 mg PO Q6HR PRN PRN Reason: Fever and/ or Pain Last Admin: 12/06/20 20:49 Dose: 650 mg Documented by: Allopurinol (Allopurinol 100 Mg Tab) 100 mg PO W/SUPPER [facility] Last Admin: 12/13/20 17:44 Dose: 100 mg Documented by: Alprazolam (Alprazolam 0.25 Mg Tab) 0.25 mg PO Q8HR PRN PRN Reason: Anxiety Last Admin: 12/08/20 05:29 Dose: 0.25 mg Documented by: Ascorbic Acid (Ascorbic Acid 500 Mg Tab) 500 mg PO BID [facility] Last Admin: 12/13/20 20:48 Dose: 500 mg Documented by: Atorvastatin Calcium (Atorvastatin 40 Mg Tab) 40 mg PO HS [facility] Last Admin: 12/13/20 20:48 Dose: 40 mg Documented by: Calcium Carbonate/Glycine (Calcium Carbonate 500 Mg Chewable) 1,000 mg PO ONCE PRN PRN Reason: Heartburn Last Admin: 12/12/20 11:44 Dose: 1,000 mg Documented by: Carvedilol (Carvedilol 6.25 Mg Tab) 6.25 mg PO BID-W/MEALS [facility] Last Admin: 12/13/20 17:44 Dose: 6.25 mg Documented by: Cholecalciferol (Cholecalciferol 25 Mcg (1000 Iu) Tablet) 100 mcg PO DAILY [facility] Last Admin: 12/13/20 08:54 Dose: 100 mcg Documented by: Darbepoetin Rizwan (Darbepoetin Rizwan 40 Mcg/0.4 Ml Syringe) 40 mcg SQ Q7D [facility] Last Admin: 12/12/20 11:43 Dose: 40 mcg Documented by: Desmopressin Acetate (Desmopressin Acetate 4 Mcg/Ml Vial (Mdv)) 1 mcg SQ DAILY [facility] Last Admin: 12/13/20 12:25 Dose: 1 mcg Documented by: Dexamethasone Sodium Phosphate (Dexamethasone Sod Phosphate 10 Mg/Ml 1 Ml Vial) 6 mg IV DAILY [facility] Last Admin: 12/13/20 14:11 Dose: 6 mg Documented by: Famotidine (Famotidine 20 Mg Tab) 20 mg PO DAILY [facility] Last Admin: 12/13/20 08:54 Dose: 20 mg Documented by: Ferrous Sulfate (Ferrous Sulfate 325 Mg Tab) 325 mg PO BID@1200,1800 [facility] Last Admin: 12/13/20 17:44 Dose: 325 mg Documented by: Cefepime HCl 2 gm/ Sodium (Chloride) 100 mls @ 25 mls/hr IVPB Q24HR [facility] Last Admin: 12/13/20 14:12 Dose: 25 mls/hr Documented by: Dextrose/Water (Dextrose 5%-Water Iv Soln) 1,000 mls @ 100 mls/hr IV .Q10H [facility] Last Admin: 12/13/20 14:13 Dose: 100 mls/hr Documented by: Insulin Aspart (Insulin Aspart (Novolog) 100 Unit/Ml Vial) 0 unit SQ ACHS [facility]; Protocol Last Admin: 12/13/20 20:49 Dose: 4 unit Documented by: Insulin Detemir (Insulin Detemir (Levemir) 100 Unit/Ml Syr) 35 unit SQ DAILY@0700 [facility] Last Admin: 12/13/20 08:54 Dose: 35 unit Documented by: Insulin Detemir (Insulin Detemir (Levemir) 100 Unit/Ml Syr) 35 unit SQ [facility] Last Admin: 12/13/20 20:48 Dose: Not Given Documented by: Levothyroxine Sodium (Levothyroxine 100 Mcg Tab) 100 mcg PO 0630 [facility] Last Admin: 12/13/20 05:36 Dose: 100 mcg Documented by: Linezolid (Linezolid 600 Mg Tab) 600 mg PO Q12HR [facility] Last Admin: 12/13/20 20:48 Dose: 600 mg Documented by: Naloxone HCl (Naloxone 0.4 Mg/Ml 1 Ml Vial) 0.2 mg IV Q2M PRN PRN Reason: Opioid Reversal Pantoprazole Sodium (Pantoprazole 40 Mg/10 Ml Vial) 40 mg IVP BID [facility] Last Admin: 12/13/20 20:48 Dose: 40 mg Documented by: Repaglinide (Repaglinide 1 Mg Tab) 0.25 mg PO AC-BID [facility] Last Admin: 12/13/20 17:44 Dose: 0.25 mg Documented by: Tamsulosin HCl (Tamsulosin 0.4 Mg Cap.Er.24h) 0.4 mg PO [facility] Last Admin: 12/13/20 20:48 Dose: 0.4 mg Documented by: Zinc Sulfate (Zinc Sulfate 220 Mg Cap) 220 mg PO DAILY [facility] Last Admin: 12/13/20 08:54 Dose: 220 mg Documented by: Past medical history to include: Diabetes, hypothyroid, gout, diabetic peripheral neuropathy, diabetic retinopathy, chronic kidney disease stage IV, coronary artery disease with bypass, AICD Social history: No history of smoking or alcohol. . 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 PSYCH: Awake, tired, following commands NEUROLOGICAL: Cranial nerves grossly intact; no facial asymmetry, moving all 4 limbs Rest of exam per pulmonary and nursing INVESTIGATIONS, reviewed in the clinical context: December 13: WBC 9 hemoglobin 8 platelets 55 potassium 4.4 creatinine 3.02 December 10: WBC 16.7 hemoglobin 8.1 platelets 75 potassium 4.9 creatinine 3.15 bun 119 December 08: Accu-Cheks 59, 63 Ultrasound Doppler lower extremity bilateral: Acute DVT in the left lower extremity with hyperexpanded material filling the lumen and absent color flow begins in the superficial femoral vein and more prominent findings in the mid and distal sebaceous femoral vein. December 07: WBC 20.04 hemoglobin 7.6 platelets 66 potassium 4.7 creatinine 3.2 bun 154 calcium 6.1 phosphorus 8 Computed tomography scan of abdomen and pelvis: Fairly moderate to large size pelvic retroperitoneal hematoma with local mass effect. Mild cortical thinning in both the kidneys. November 28: WBC 20.6 hemoglobin 6.1 platelets 77 potassium 5 BUN 151 creatinine 3.61 lactic acid 3.1 calcium 5.8 November 27: WBC 5.4 hemoglobin 9.3 potassium 4.8 creatinine 2.2 LDH 687 CRP 1.2 November 21: Potassium 4.8 creatinine 2.7 2-D echocardiogram: EF 50-55% November 20 Potassium 5.1 creatinine 2.85 d-dimer 0.47 CRP 70 WBC 3.2 hemoglobin 9.7 platelets 164 lymphocytes 0.5 sodium 131 potassium 4.8 bun 61 creatinine 3.37 Troponin I 0.073, 0.073, 0.068 albumin 3.2 Urine protein 2+ moderate blood Coronavirus [PCR] detected EKG tracing personally reviewed by me-normal sinus rhythm Chest x-ray film personally reviewed by me-bilateral infiltrates Renal ultrasound-normal Assessment and plan: -Acute bilateral COVID 19 pneumonia. Symptoms started about a week before presentation.-Slow to respond on IV dexamethasone, subcu Lovenox-held, vitamin C vitamin D Pepcid and zinc. November 20 - Remdesivir -Acute hypoxic respiratory failure, secondary to COVID 19 pneumonia: -Slow to respond Advanced to a Airvo/nonrebreather 60/65% -Acute myocarditis secondary to COVID 19 Telemetry. watch for arrhythmias. -Acute kidney injury likely ATN from sepsis from COVID 19, hypertension.-Slow to respond . IV fluids -Chronic kidney disease stage IV secondary to diabetic kidney disease. Creatinine 2.17 August 2020 Follow renal function -AICD On telemetry -Coronary artery disease with prior history of carotid bypass Continue with Coreg, Lipitor, aspirin -Hypothyroid Continue with Synthroid -Diabetes mellitus type 2, on oral hypoglycemic, uncontrolled with hyperglycemia Follow Accu-Cheks with sliding scale insulin. Increase Levemir to 28 units at night -Chronic gout Continue with allopurinol -Anemia of chronic kidney disease Follow H&H and continue with erythropoietin -Diabetic retinopathy Follow clinically -Diabetic peripheral neuropathy Follow clinically -Hyponatremia from a relative decrease in solute from decreased appetite- improving Saline IV -Metabolic acidosis due to chronic kidney disease Supplement bicarb -Acute retroperitoneal bleed likely from patient being on Lovenox Lovenox has been on hold. 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 Patient not a candidate for anticoagulation. IVC filter, cook/la nena -Hyperphosphatemia due to acute on chronic kidney disease -Thrombocytopenia likely from underlying infection -CODE STATUS DO NOT RESUSCITATE Patient still not doing too well. Hanging in there. Taken care by day. Prognosis guarded.
[2020-12-14] MEDS: DEXTROSE 5% IN WATER 1,000 ML IV SCH (00:06)
[2020-12-14] MEDS: LEVOTHYROXINE 100 MCG TAB PO SCH (05:15)
[2020-12-14 06:53] LABS: Glucose,Whole Blood 68 mg/dL (75-99)
[2020-12-14 07:06] LABS: Glucose,Whole Blood 70 mg/dL (75-99)
[2020-12-14] MEDS: INSULIN ASPART (NovoLOG) 100 UNIT/ML VIAL SQ SCH ×4 (08:08→20:09)
[2020-12-14] MEDS: INSULIN DETEMIR (LEVEMIR) 100 UNIT/ML SYR SQ SCH ×2 (08:44→20:02)
[2020-12-14] MEDS: CHOLECALCIFEROL 25 MCG (1000 IU) TABLET PO SCH (08:50)
[2020-12-14] MEDS: ASCORBIC ACID 500 MG TAB PO SCH ×2 (08:51→20:09)
[2020-12-14] MEDS: FAMOTIDINE 20 MG TAB PO SCH (08:51)
[2020-12-14] MEDS: carvediloL 6.25 MG TAB PO SCH ×2 (08:51→18:13)
[2020-12-14] MEDS: FERROUS SULFATE 325 MG TAB PO SCH ×2 (08:51→18:13)
[2020-12-14] MEDS: ZINC SULFATE 220 MG CAP PO SCH (08:51)
[2020-12-14] MEDS: CEFEPIME 2 GM in SODIUM CHLORIDE 0.9% 100 ML IVPB SCH (08:58)
[2020-12-14] MEDS: DEXAMETHASONE SOD PHOSPHATE 10 MG/ML 1 ML VIAL IV SCH (09:00)
[2020-12-14] MEDS: REPAGLINIDE 1 MG TAB PO SCH ×2 (09:04→18:13)
[2020-12-14] MEDS: PANTOPRAZOLE 40 MG/10 ML VIAL IVP SCH ×2 (09:06→20:09)
[2020-12-14 09:09] LABS: Glucose,Whole Blood 99 mg/dL (75-99)
[2020-12-14] MEDS: LINEZOLID 600 MG TAB PO SCH ×2 (09:09→20:09)
--- NOTE | 2020-12-14 10:36 | P.PN ---
Subjective Progress Note Date: 12/14/20 Principal diagnosis: Covid infection. Anemia of chronic kidney disease on epo Mr. Pena cont on high flow O2, he is not responsive to voice today. Objective - Vital Signs Vital signs: Vital Signs Temp 97.7 F 12/14/20 05:13 Pulse 80 12/14/20 05:13 Resp 18 12/14/20 05:13 BP 164/64 12/14/20 05:13 Pulse Ox 92 L 12/14/20 05:13 Intake & Output 12/13/20 12/14/20 12/14/20 18:59 06:59 18:59 Output Total 300 775 Balance -300 -775 Weight 85.2 kg Output: Urine 300 775 Other: Voiding Method Indwelling Catheter Indwelling Catheter # Voids 1 - Exam deferred - Labs CBC & Chem 7: 12/13/20 06:09 12/13/20 06:09 Labs: Abnormal Lab Results - Last 24 Hours (Table) 12/13/20 12/13/20 12/13/20 Range/Units 11:17 16:38 20:07 POC Glucose (mg/dL) 292 H 268 H 273 H (75-99) mg/dL 12/14/20 12/14/20 Range/Units 06:49 07:04 POC Glucose (mg/dL) 68 L 70 L (75-99) mg/dL Assessment and Plan (1) Acute on chronic renal failure Current Visit: Yes Status: Acute Priority: High Code(s): N17.9 - ACUTE KIDNEY FAILURE, UNSPECIFIED; N18.9 - CHRONIC KIDNEY DISEASE, UNSPECIFIED SNOMED Code(s): 001619594 (2) DVT (deep venous thrombosis) Current Visit: Yes Status: Acute Priority: High Code(s): I82.409 - ACUTE EMBOLISM AND THOMBOS UNSP DEEP VN UNSP LOWER EXTREMITY SNOMED Code(s): 075962232 (3) Retroperitoneal hematoma Current Visit: Yes Status: Acute Priority: High Code(s): K66.1 - HEMOPERITONEUM SNOMED Code(s): 124271448 (4) Leukocytosis Current Visit: Yes Status: Acute Priority: High Code(s): D72.829 - ELEVATED WHITE BLOOD CELL COUNT, UNSPECIFIED SNOMED Code(s): 964626563 (5) Thrombocytopenia Current Visit: Yes Status: Acute Priority: High Code(s): D69.6 - THROMBOCYTOPENIA, UNSPECIFIED SNOMED Code(s): 878073850 Plan: Recent diagnosis of left lower extremity DVT, placed on anticoagulation, and subsequent retroperitoneal hemorrhage. Patient has had an IVC filter placement as he is not a candidate for anticoagulation. Transfuse for Hgb < 7. Conservative transfusions for patient based on symptoms. Want to avoid unnecessary fluid overload. Transfuse for platelets less than 10,000 or if acute bleeding. Platelets are low secondary to acute infection. Nursing is reporting increased bruising, will order coags and fibrinogen Elevated WBC/ANC secondary to infection, no acute intervention from a Hematology standpoint Acute on chronic renal failure. Nephrology following. Aranesp weekly Cont to monitor CBC attests: I have performed H&P, developed impression and plan of care for patient. Discussed with dictator. Agree with dictation, documented as a scribe.
[2020-12-14 10:57] LABS: Anisocytosis Slight; Basophils % (A) 0 %; Eosinophils # (A) 0.3 k/uL (0-0.7); Eosinophils % (A) 4 %; HCT 23.1 % (39.0-53.0); HGB 7.6 gm/dL (13.0-17.5); Lymphocytes # (A) 0.3 k/uL (1.0-4.8); Lymphocytes % (A) 4 %; MCH 31.4 pg (25.0-35.0); Macrocytosis Slight; Mean Platelet Volume 9.7; Monocytes # (A) 0.4 k/uL (0-1.0); Monocytes % (A) 5 %; Neutrophils # (A) 6.2 k/uL (1.3-7.7); Neutrophils % (A) 87 %; Platelet Count 43 k/uL (150-450); RBC 2.44 m/uL (4.30-5.90); RDW 19.3 % (11.5-15.5); WBC 7.2 k/uL (3.8-10.6)
[2020-12-14 11:11] LABS: Glucose,Whole Blood 131 mg/dL (75-99)
[2020-12-14] MEDS: FUROSEMIDE 10 MG/ML 4 ML VIAL IV SCH (12:35)
[2020-12-14] MEDS: DESMOPRESSIN ACETATE 4 MCG/ML VIAL (MDV) SQ SCH (12:35)
[2020-12-14 12:43] LABS: Partial Thromboplastin Time 20.9 sec (22.0-30.0)
[2020-12-14 12:48] LABS: Prothrombin Time 10.8 sec (9.0-12.0)
--- NOTE | 2020-12-14 12:50 | PN ---
PROGRESS NOTE DATE OF SERVICE: 12/14/2020 REASON FOR FOLLOWUP: Pneumonia. INTERVAL HISTORY: The patient is afebrile. Patient is slightly lethargic today. Did not answer any questions. The patient remains to be on high-flow nasal oxygen as well as AIRVO. No other change reported by the nursing staff. PHYSICAL EXAMINATION: Blood pressure 164/64 with a pulse of 80, temperature 97.7. He is 92% on 60% FiO2. General description is an elderly male lying in bed in no distress. RESPIRATORY SYSTEM: Unlabored breathing with decreased intensity of breath sounds, no wheeze. HEART: S1, S2. Regular rate and rhythm. ABDOMEN: Soft, no tenderness. LABS: No new labs have been obtained today. DIAGNOSTIC IMPRESSION AND PLAN: Patient with acute respiratory failure which is multifactorial with initial diagnosis of COVID, now with concern for possible secondary bacterial pneumonia. Patient is covered cefepime and Zyvox and the patient white count did normalized. Respiratory Status remains to be marginal and did have a component of urinary tract infection currently covered with antibiotics the patient is on. Prognosis remains to be guarded. Course will be monitored closely. MMODL / IJN: [id number] / JASWANT
[2020-12-14 13:32] LABS: African American GFR (CKD) 22 (>60 ml/min/1.73 sqM); Anion Gap 9 mmol/L; Calcium 6.8 mg/dL (8.4-10.2); Carbon Dioxide 25 mmol/L (22-30); Chloride 107 mmol/L (98-107); Glucose 117 mg/dL (74-99); Non-African American GFR(CKD) 19 (>60 ml/min/1.73 sqM); Potassium 4.6 mmol/L (3.5-5.1); Sodium 141 mmol/L (137-145)
[2020-12-14 13:34] LABS: Blood Urea Nitrogen 112 mg/dL (9-20)
--- NOTE | 2020-12-14 15:06 | P.PN ---
<Namrata Odell - Last Filed: 12/14/20 15:01> Subjective Progress Note Date: 12/14/20 CHIEF COMPLAINT: COVID-19 pneumonia HISTORY OF PRESENT ILLNESS: The patient is a 75 year old male with COVID pneumonia. Surgical service is following in regards to patient's retroperitoneal hematoma. Patient denies any abdominal pain. Denies any back pain. Patient was more sleepy this morning. Patient having minimal oral intake. He is drinking his ensure and apple juice at meals. He has persistent global decline. Afebrile. He has received blood transfusions and platelet transfusion during this admission as well as a DDAVP and Aranesp. Dietitian is completing a calorie count. Afebrile. WBC 7.2 hemoglobin 7.6 platelets 43 INR 1.0 creatinine 3.10 PHYSICAL EXAM: VITAL SIGNS: Reviewed GENERAL: Well-developed in no acute distress. HEENT: No sclera icterus. Extraocular movements grossly intact. Moist buccal mucosa. Head is atraumatic, normocephalic. Hears conversational speech. No nasal drainage. NECK: Supple without lymphadenopathy. CHEST: Non-labored respirations and equal bilateral excursions. CARDIOVASCULAR: Palpable 2+ radial pulses. ABDOMEN: Soft. Nondistended. Nontender. MUSCULOSKELETAL: No clubbing or cyanosis. NEUROLOGIC: No focal or lateralizing signs. Cranial nerves II through XII g rossly intact. Patient is more awake and able to answer questions SKIN: Well perfused. Good skin turgor. ASSESSMENT: 1. Retroperitoneal hematoma 2. Acute blood loss anemia secondary to Retroperitoneal bleed 3. COVID-19 pneumonia 4. Acute hypoxic respiratory failure secondary to COVID-19 pneumonia 5. Acute myocarditis 6. Acute kidney injury followed by nephrology 7. Chronic kidney disease stage IV 8. History of AICD 9. History of diabetes mellitus type 2 10. Thrombocytopenia 11. Acute left lower extremity DVT status post IVC filter placement PLAN: -Patient is scheduled for EGD with PEG tube placement tomorrow, 12/15/[address] Levin -Nothing by mouth after midnight -No surgical intervention planned for the retroperitoneal hematoma -Continue calorie count Physician Automatic Clipper note has been reviewed by physician. Signing provider agrees with the documented findings, assessment, and plan of care. Objective - Vital Signs Vital signs: Vital Signs Temp 96.2 F L 12/14/20 14:00 Pulse 85 12/14/20 14:00 Resp 18 12/14/20 14:00 BP 143/82 12/14/20 14:00 Pulse Ox 96 12/14/20 14:00 Intake & Output 12/13/20 12/14/20 12/14/20 18:59 06:59 18:59 Output Total 300 775 Balance -300 -775 Weight 85.2 kg Output: Urine 300 775 Other: Voiding Method Indwelling Catheter Indwelling Catheter Indwelling Catheter # Voids 1 - Labs CBC & Chem 7: 12/14/20 10:17 12/14/20 10:17 Labs: Abnormal Lab Results - Last 24 Hours (Table) 12/13/20 12/13/20 12/14/20 Range/Units 16:38 20:07 06:49 RBC (4.30-5.90) m/uL Hgb (13.0-17.5) gm/dL Hct (39.0-53.0) % RDW (11.5-15.5) % Plt Count (150-450) k/uL Lymphocytes # (1.0-4.8) k/uL APTT (22.0-30.0) sec BUN (9-20) mg/dL Creatinine (0.66-1.25) mg/dL Glucose (74-99) mg/dL POC Glucose (mg/dL) 268 H 273 H 68 L (75-99) mg/dL Calcium (8.4-10.2) mg/dL 12/14/20 12/14/20 12/14/20 Range/Units 07:04 10:17 10:17 RBC 2.44 L (4.30-5.90) m/uL Hgb 7.6 L (13.0-17.5) gm/dL Hct 23.1 L (39.0-53.0) % RDW 19.3 H (11.5-15.5) % Plt Count 43 L (150-450) k/uL Lymphocytes # 0.3 L (1.0-4.8) k/uL APTT (22.0-30.0) sec BUN 112 H* (9-20) mg/dL Creatinine 3.10 H (0.66-1.25) mg/dL Glucose 117 H (74-99) mg/dL POC Glucose (mg/dL) 70 L (75-99) mg/dL Calcium 6.8 L (8.4-10.2) mg/dL 12/14/20 12/14/20 Range/Units 11:09 11:39 RBC (4.30-5.90) m/uL Hgb (13.0-17.5) gm/dL Hct (39.0-53.0) % RDW (11.5-15.5) % Plt Count (150-450) k/uL Lymphocytes # (1.0-4.8) k/uL APTT 20.9 L (22.0-30.0) sec BUN (9-20) mg/dL Creatinine (0.66-1.25) mg/dL Glucose (74-99) mg/dL POC Glucose (mg/dL) 131 H (75-99) mg/dL Calcium (8.4-10.2) mg/dL <Yanet Levin N - Last Filed: 01/27/21 21:30> Subjective As above. Please see additional documentation. Objective - Vital Signs Vital signs: Vital Signs Temp 97.5 F L 12/18/20 05:41 Pulse 83 12/18/20 08:00 Resp 30 H 12/20/20 02:30 BP 114/60 12/18/20 05:41 Pulse Ox 89 L 12/18/20 05:41 - Labs CBC & Chem 7: 12/16/20 06:59 12/18/20 07:14
--- NOTE | 2020-12-14 15:20 | PN ---
PROGRESS NOTE The patient is seen for followup for chronic kidney disease, currently being treated for COVID pneumonia. Renal function has been fairly stable for the last few days with creatinine staying at about 3 mg/dL. This morning patient is awake. He is sleepy, but arousable. PHYSICAL EXAMINATION: Blood pressure is 164/64, heart rate 80 per minute. He is afebrile. He remains on AIRVO, O2 sats 92%. Examination shows edema left lower extremity, 2+ trace in the right lower extremity. Heart and lungs are not examined. LABS: Labs show from yesterday 12/13/2020, hemoglobin 8.0, sodium 140, potassium 4.4, chloride 107, BUN 111, creatinine 3.02. ASSESSMENT: 1. Chronic kidney disease NKF stage 4, renal function stable for the last few days. Patient is maintained on small amount of IV fluids. 2. COVID pneumonia. Continues to require large amounts of oxygen. 3. Hypocalcemia with corrected calcium earlier at about 7.4 two days ago. No evidence of significant nutrition vitamin D deficiency currently maintained on Tums. 4. Urinary tract infection. Urine culture growing Escherichia coli and Enterococcus faecalis, status post antibiotics. 5. Generalized debility. 6. Hyponatremia, currently improved. 7. Anemia of chronic disease with packed RBCs transfusion, maintained on Aranesp. PLAN: Diurese the patient very cautiously as he has had significant worsening in his renal function and volume depletion quite rapidly with previous diuresis. I will check labs today and then again in a.m. Oral intake is poor. A 24-hour output about 1.5 L on 12/12, none documented for yesterday. MMODL / IJN: [id number] /
[2020-12-14 16:00] LABS: Glucose,Whole Blood 248 mg/dL (75-99)
--- NOTE | 2020-12-14 16:06 | P.PN ---
Subjective Progress Note Date: 12/14/20 Principal diagnosis: Acute COVID-19 pneumonia Acute COVID-19 pneumonia 75-year-old male patient, started having symptoms approximately a week ago when he started feeling a bit tired and fatigued. He subsequently developed fever and diminished appetite and some diarrhea. The patient tested positive for COVID 19 infection 4 days ago and this was again confirmed on 11/19/2020. The patient came into the emergency with weakness and shortness of breath. The patient is currently on 2 L of oxygen by nasal cannula. He is known to have CAD, previous bypass, aortic, chronic disease, diabetes mellitus and diabetic retinopathy and neuropathy and hypothyroidism and gout. Lactate was 0.7, there d-dimer was 0.6, white cell count was at 3.2 with a lymphopenia, creatinine was at 3.37 with a mean of 61. He is also on multivitamins. Chest x-ray showing diffuse bilateral pulmonary infiltrates. On today's evaluation of 4 [id number],021 the patient is currently on oxygen at 4 L per minute. The patient is quite comfortable. Pulse ox is around 95% and FiO2 can be obviously weaned off. The patient is being seen for a follow-up. The patient is currently being treated with Decadron 6 mg IV every 24 hours. The patient is also on Lovenox 40 mg subcu daily and the patient is also on Remdesivir day #2. No follow-up chest x-rays available from today. The rest of the labs are showing chronic kidney disease with a creatinine of 2.7. The patient has chronic metabolic acidosis which is of a non-anion gap type. On 11/22/2020 patient seen in follow-up. Is comfortable, still desat easily, feels tired, but no acute distress, today's labs have been reviewed, d-dimer 0.69, CRP is 35.6, no LDH. Has not had a chest x-ray, he is currently on 7 L, his pulse ox is 89%, no fever, remains on Remdesivir, today is day 3 of treatment. On 11/23/2020 patient is pretty stable, he remains on 5 L of oxygen, her pulse ox 89-90%, he is breathing comfortably, no worsening dyspnea, his 0.9, saline at 60 per hour, patient completed Remdesivir treatment, he remains on steroids, and prophylactic Lovenox. No worsening dyspnea, today's labs have been reviewed, d- dimer is 1.90, renal profile is slightly improved from yesterday, patient continues on IV fluids, no nausea vomiting or diarrhea, CRP is trending down, LDH with today is pending. On 11/25/2000 patient seen in follow-up on medical surgical floor, he is sitting up in the chair, appears to be breathing comfortably although his oxygen requirements have increased, and is currently on 15 L per high flow nasal cannula up from 12 L from yesterday, he denies any worsening dyspnea, lung sounds reveal diffuse bilateral crackles, no chest discomfort, no signs of any respiratory distress. No cough, no wheezing, today's chest x-ray shows bilateral mid to lower lung increased opacities, findings consistent with COVID- 19 pneumonia, the findings are stable in appearance. Follow-up inflammatory markers showed d-dimer of 19.16, LDH is up to 2028, CRP is 2.4. Patient has completed his Remdesivir course, she remains on daily dose of Decadron 6 mg, and Lovenox 30 mg daily, his renal function appears to be relatively stable, his bun is 64, and creatinine is 2.12 On 11/26/2020 patient seen in follow-up on medical surgical floor, he sitting up in the chair, he is breathing comfortably, he is currently down to 13 L, and his pulse ox is 90-94%, his been afebrile, overall she looks stable, he does not appear to be in any acute distress, he is a d-dimer has trended up, and on today's labs it is up to 30.3, and his Lovenox dose will be adjusted. Today's inflammatory markers are improving. He remains on daily dose IV Decadron 6 mg daily, Lovenox, multivitamins, and his IV fluids are infusing at a rate of 60 ML per hour, no new chest x-ray today, his kidney function shows slight improvement On 11/27/2000 patient seen in follow-up on medical surgical floor, he remains on high flow oxygen 15 L, and the nonrebreather mask, he does desat when he removes his nonrebreather mask down to 86% however he denies any dyspnea, he does not feel stressed at all, and looks very comfortable, he sitting up in the recliner, awake and alert, oriented 3, he is afebrile, hemodynamically has been stable, he has no specific complaints, and his today's chest x-ray shows cardiomegaly and low lung volumes with bilateral mid to lower lung reticular and confluent opacities consistent with COVID-19 pneumonia with no change from previousexam. Today's labs have been reviewed, white blood cell count is 5.45, hemoglobin is 9.3, no d-dimer today, but yesterday's d-dimer was quite elevated at 30.3, and his Lovenox dose was adjusted and increased to 40 mg twice a day, his electrolyte panel shows CO2 of 28.1, but prostate electrolytes are within normal limits, B1 is 84, creatinine is 2.2, his LDH is down to 687, improving, his CRP is 1.2 on today's labs. He continues on Decadron 6 mg daily, he is on Lovenox 40 mg twice a day, and he is receiving IV hydration at 60 ML per hour, nephrology is following On 11/28/2020 patient seen in follow-up on medical surgical floor, he is resting comfortably in bed, he is currently on 15 L high flow and 100% nonrebreather, he looks quite comfortable, he denies any shortness of breath, minimal cough, he is breathing comfortably, his pro-calcitonin level was low, his inflammatory markers were improving, his d-dimer was elevated on 11/26/2020 patient is on 40 mg of Lovenox twice daily, Lasix is at 40 mg every 12 hours patient is in negative fluid balance. No new chest x-ray today On 11/29/2000 patient seen in follow-up on medical surgical floor, is currently on 15 L per high flow nasal cannula, and 100 nonrebreather mask, and he is satting about 93%, he does not feel short of breath, he seems to be breathing very comfortably, he is afebrile, hemodynamically stable, his chest x-ray today shows low lung volumes with bilateral mid to lower lung reticular and confluent opacities consistent with COVID-19 pneumonia. Findings are similar to his previous chest x-ray, lower extremity Dopplers were completed and he was negative for DVT. His d-dimer is trending down, and is down to 16.0. The rest of his lab work has been reviewed, showing white blood cell count of 8.7, hemoglobin of 10.5, sodium is 136, potassium is 4.5, chloride is 98, BUN of 108, and creatinine is 3.2, his calcitonin level was negative at 0.10, his inflammatory markers were improving since admission. No nausea vomiting or diarrhea, and patient continues on daily dose of IV Decadron 6 mg, continues on Lovenox 40 mg twice daily, she was given a dose of Lasix yesterday and he was started on maintenance dose of IV Lasix On 11/30/2020 patient seen in follow-up on medical surgical floor, he is resting comfortably in bed, currently off the nonrebreather mask, on 15 L per high flow nasal cannula with his pulse ox is 90-91%, he looks very comfortable, breathing comfortably, no worsening dyspnea. Cooperative chest discomfort, no cough. No fever or chills. No acute events overnight, patient did receive 1 dose of Toci yesterday 720 mg, he remains on Lovenox 40 mg twice a day, and daily dose Decadron, today's labs have been reviewed, showing white blood cell, 10.1, hemoglobin of 10.3, d-dimer is trending down, down to 11.4, electrolytes are within normal limits, renal profile shows some improvement, pro-Joshua was negative, inflammatory markers are trending down, patient denies any specific complaints On 12/01/2020 patient seen in follow-up on medical surgical floor, is currently on 15 L per high flow nasal cannula and nonrebreather mask, and his pulse ox is 100%, he is breathing very comfortably, denies any cough, denies any chest pain, has had no fever or chills, no nausea vomiting diarrhea, no abdominal pain, no new chest x-rays, his labs have been reviewed, d-dimer today is 12.5, electroly angel are unremarkable, his renal profile slightly improved, his BUN is 113, and creatinine is 2.59. On 12/02/2020 patient seen in follow-up on medical surgical floor, he is currently back on 11 L of oxygen resting comfortably in bed, in comfortably, in his pulse ox was 99%, we dropped the FiO2 down to 8 L, and we instructed the nursing staff to continue weaning it to maintain O2 saturations at or above 90%, patient has no specific complaints, no cough, no chest discomfort, no fever, no chills no headaches, no nausea vomiting or diarrhea. Renal function continues to be impaired, and nephrology is following, his BUN is 1:30, and creatinine is 2.70, electrolytes were unremarkable on today's labs. No new chest x-ray today. Patient remains on IV Decadron 6 mg, and Lovenox is currently at 40 mg twice daily. Follow-up d-dimer is pending for today. On the 12/04/2020 patient seen in follow-up on medical surgical floor, he is currently on 7 L per high flow nasal cannula, his pulse ox is about 86-95%, although she looks very pale, his hemoglobin today is down to 6.0 and patient has not had any obvious bleeding, no hematemesis, no melena, abdomen is soft, no abdominal pain, he is a bit drowsy, he is mildly short of breath but does not appear to be in any acute distress, he was also found to be hypothermic, and appear hugger was applied, he received a unit of packed red blood cells, on in the 2 units are pending for transfusion today, today's labs have been reviewed, his white count is 23.6, his platelet count is down to 93,000, his neutrophil count is 21.5, a remains lymphopenic as well, and lymphocyte count is 0.48, serum sodium is 131, potassium is 5.0, chloride is 106, CO2 is 15, creatinine is 148, and creatinine of 3.36, serum calcium is 5.9, his last LDH from 12/03/2020 was 1654, and CRP was 0.9, CA urinalysis was sent and there is possibility of urinary tract infection with the large amounts of leukocytes esterase, white blood cells and white blood cells in clumps and many bacteria. Patient was started on cefepime, and Zyvox, ID service is following. Patient was increasingly more acidotic and he was given 1 puff sodium bicarbonates IV push, and was started on D5W with 3 A of bicarbonate at a rate of 50 ML per hour. No nausea vomiting or diarrhea. He received a dose of vancomycin yesterday, and vancomycin is being adjusted per pharmacy. Blood cultures are negative thus far On 12/05/2020 patient seen in follow-up on medical surgical floor. He is breat carla comfortably, he is resting in bed, he continues to require a bear hugger his current temp is currently 96.3 degrees utilizing a temporal artery. No obvious bleeding, patient is passing dark stools, however he also takes iron supplements, and the nurse states his stools are not obviously black and tarry, no hematemesis, abdomen is soft, no hematuria. No altered mentation, he is awake and alert, he is answering questions appropriately, he denies any worsening dyspnea, urine and blood cultures have been sent and are pending at this time, and patient is currently covered with cefepime, and Zyvox. Patient received 2 A of sodium bicarbonate this morning. Today's labs show a white blood cell count of 25.1, hemoglobin of 7.5, sodium is 132, potassium is 5.6, CO2 was 14, BUN was 156, creatinine is 3.49, lactic acid was 2.6, pro-calcitonin level is low at 0.28. Urinalysis suggest possibility of urinary tract infection. On 12/06/2020 patient seen in follow-up on medical surgical floor, he is resting quietly in bed, he still on high flow oxygen, currently at 15 L, his pulse ox is 94%, he states he is tired and sleepy, his hemoglobin is down to 6.1 today and again there is no clear evidence of bleeding, abdomen is soft, no hematemesis, no melena, patient is being transfused with 1 unit of packed red blood cells this morning, his white blood cell count was 20.6, his platelet count is 77, his anticoagulation has been on hold for last 48 hours, his BUN is up to 151, creatinine is 3.61. Plasma lactic acid was 3.1, patient is on antibiotics for possibility of sepsis, likely related to urinary tract infection, his urine culture showing gram-negative bacilli, fungal cultures pending, blood cultures have shown no growth. She remains on Decadron, and he is on cefepime and Zyvox. He received some fluid boluses 500 at 9:00 last night, and another 500 mL fluid bolus in the morning, she remains on D5W with 3 units of bicarbonate at a rate of 50 ML per hour. Nephrology is following. GI service has been consulted and CT of the demented pelvis are pending at this time On 12/07/2020 patient seen in follow-up on medical surgical floor, he is awake and alert, he looks better today, more awake, on today's exam, denies any worsening dyspnea, he is currently on 13 L of oxygen his pulse ox is 93%, his hemoglobin today is 7.6, patient 2 units of packed red blood cells yesterday and 2 units the day prior. His CT of the abdomen showed evidence of fairly moderate to large size left pelvic retroperitoneal hematoma with local mass effect, suggesting subacute possible acute on chronic etiology. Surgery was consulted and recommended conservative treatment. Patient has been off all anticoagulation, in his left leg on today's exam is quite large and swollen and for that reason lower extremity Doppler was obtained revealing acute DVT in the left leg. Resting blood work has been reviewed showing white blood cell count still elevated at 20.04, hemoglobin is 7.6 as mentioned above, platelet count is 66, today's d-dimer is 6.06 resting blood work is still pending. Hematology is following. Patient was also found to be septic, cultures showed Enterococcus faecalis, and patient is on a combination of cefepime and Zyvox, ID service is following. Appetite is poor, but his had no nausea vomiting or diarrhea, he is currently on D5W with 3 A of bicarbonate at a rate of 50 ML per hour. On 12/10/2020 patient seen in follow-up on medical surgical floor. Patient is very drowsy, he is poorly responsive, he remains on high flow oxygen at 60 L, and FiO2 of 78% in addition to nonrebreather mask, his pulse ox is around 90- 91%, he is on D5W at a rate of 50 ML per hour, as been hypothermic, with a temp as low as 95.6F, does not appear to be in any acute respiratory distress, however overall she seems quite debilitated, very weak and fatigued, he has not been eating. Overall his condition has been declining, patient is been maintained on steroids, his anticoagulation was placed on hold related to retroperitoneal bleeding, and patient required transfusions with blood, he then developed a DVT in his left lower extremity however in view of his bleeding he was not able to go back on anticoagulants and IVC filter was placed. Today's hemoglobin is 8.1, yesterday he received 1 more unit of blood for a hemoglobin of 6.8, and a unit of platelets. The platelet count was 69, and 75 on today's labs. No abdominal pain. Patient continues on cefepime and Zyvox, his urine culture was positive for E. coli and Enterococcus faecalis, blood cultures were negative On 12/12/2020 patient seen in follow-up on medical surgical floor. This was consulted and patient was seen by the hospice, however clinically he is looking a bit better today, and he is currently more awake and patient was actually hungry and was able to consume some oral nutrition. Patient is currently on Airvo at 60 L and FiO2 of 55% in addition to the nonrebreather mask, pulse ox is between 82-85%, afebrile, blood pressure is currently 136/64. Chest x-ray shows persistent patchy basilar infiltrates. Patient remains on antibiotics in the form of cefepime and Zyvox. His urine culture showed E. coli and Enterococcus faecalis, blood cultures show no growth. Today's labs have been reviewed, hence the renal function has actually improved since yesterday, his B1 is 115, creatinine is 2.89. Electrolytes are within normal limits, his platelet cell count is improving, and is down to 12.5, hemoglobin is 7.7, platelet count is 69. On 12/13/2020 patient seen in follow-up on medical surgical floor. Patient is sitting up in the chair, he is looking quite awake, and in no acute distress. Is on Airvo with 60 L and FiO2 of 90% and is looking quite comfortable. He's had no fever or chills, vital signs have been stable, he denies any dyspnea, he is breathing comfortably, no cough, no chest pain, he states he ate a good breakfast this morning. No nausea vomiting or diarrhea, he continues on cefepime, his had no fever chills, ID service is following, he remains on Decadron 6 mg daily, he is on D5 W at 100 ML per hour. Urine cultures were positive for E. coli and Enterococcus faecalis, blood cultures have been negative. White blood cell count of 9.0, hemoglobin is 8.0, electrolytes are within normal limits, BUN of 111, creatinine is 3.02. On 12/14/2020 patient seen in follow-up on medical surgical floor. Patient is awake and alert, he is currently on high flow oxygen, on Airvo at 60 L and FiO2 of 90%, and 100% nonrebreather mask and his pulse ox was noted to be at 96%, he denies any worsening dyspnea however when the nonrebreather mask was removed he was descending to low 80s, and more dyspneic, he was placed back on the nonrebreather mask. He is afebrile, hemodynamically stable. Denies any specific complaints, he is weak, and his appetite has been waxing and waning, and he is currently on calorie count. Registered dietitian is following. His oral intake is diminished, and patient is scheduled for PEG tube insertion possibly tomorrow. Overall he appears to be fluid overloaded, his last chest x- ray from 12/12/2020 showed persistent patchy basilar infiltrates. Patient has been receiving D5W at a rate of 100 ML per hour which was turned down to KVO this morning. This morning's labs have been reviewed showing white blood cell count is 7.2, hemoglobin is 7.6, electrolytes were within normal limits, BUN is 112 and creatinine is 3.10. Objective - Vital Signs Vital signs: Vital Signs Temp 96.2 F L 12/14/20 14:00 Pulse 84 12/14/20 15:44 Resp 18 12/14/20 15:44 BP 124/68 12/14/20 15:44 Pulse Ox 91 L 12/14/20 15:44 Intake & Output 12/13/20 12/14/20 12/14/20 18:59 06:59 18:59 Output Total 300 775 Balance -300 -775 Weight 85.2 kg Output: Urine 300 775 Other: Voiding Method Indwelling Catheter Indwelling Catheter Indwelling Catheter # Voids 1 - Exam GENERAL EXAM: 75-year-old white male, a more awake on today's exam, and answering simple questions currently on Airvo at 60 l, fio2 50%, in addition to 100% nonrebreather mask, and his pulse ox is between 82-85% HEAD: Normocephalic/atraumatic. EYES: Normal reaction of pupils, equal size. Conjunctiva pink, sclera white. NOSE: Clear with pink turbinates. THROAT: No erythema or exudates. NECK: No masses, no JVD, no thyroid enlargement, no adenopathy. CHEST: No chest wall deformity. Symmetrical expansion. LUNGS: Equal air entry with bilateral crackles CVS: Regular rate and rhythm, normal S1 and S2, no gallops, no murmurs, no rubs ABDOMEN: Soft, nontender. No hepatosplenomegaly, normal bowel sounds, no guarding or rigidity. EXTREMITIES: No clubbing, left leg is quite swollen, and tight, with suspicion of DVT no cyanosis, 2+ pulses and upper and lower extremities. MUSCULOSKELETAL: Muscle strength and tone normal. SPINE: No scoliosis or deformity SKIN: No rashes CENTRAL NERVOUS SYSTEM: Weak but more awake on today's exam on high flow oxygen per Airvo. No focal deficits, tone is normal in all 4 extremities. - Labs CBC & Chem 7: 12/14/20 10:17 12/14/20 10:17 Labs: Abnormal Lab Results - Last 24 Hours (Table) 12/13/20 12/13/20 12/14/20 Range/Units 16:38 20:07 06:49 RBC (4.30-5.90) m/uL Hgb (13.0-17.5) gm/dL Hct (39.0-53.0) % RDW (11.5-15.5) % Plt Count (150-450) k/uL Lymphocytes # (1.0-4.8) k/uL APTT (22.0-30.0) sec BUN (9-20) mg/dL Creatinine (0.66-1.25) mg/dL Glucose (74-99) mg/dL POC Glucose (mg/dL) 268 H 273 H 68 L (75-99) mg/dL Calcium (8.4-10.2) mg/dL 12/14/20 12/14/20 12/14/20 Range/Units 07:04 10:17 10:17 RBC 2.44 L (4.30-5.90) m/uL Hgb 7.6 L (13.0-17.5) gm/dL Hct 23.1 L (39.0-53.0) % RDW 19.3 H (11.5-15.5) % Plt Count 43 L (150-450) k/uL Lymphocytes # 0.3 L (1.0-4.8) k/uL APTT (22.0-30.0) sec BUN 112 H* (9-20) mg/dL Creatinine 3.10 H (0.66-1.25) mg/dL Glucose 117 H (74-99) mg/dL POC Glucose (mg/dL) 70 L (75-99) mg/dL Calcium 6.8 L (8.4-10.2) mg/dL 12/14/20 12/14/20 Range/Units 11:09 11:39 RBC (4.30-5.90) m/uL Hgb (13.0-17.5) gm/dL Hct (39.0-53.0) % RDW (11.5-15.5) % Plt Count (150-450) k/uL Lymphocytes # (1.0-4.8) k/uL APTT 20.9 L (22.0-30.0) sec BUN (9-20) mg/dL Creatinine (0.66-1.25) mg/dL Glucose (74-99) mg/dL POC Glucose (mg/dL) 131 H (75-99) mg/dL Calcium (8.4-10.2) mg/dL Assessment and Plan Plan: Assessment: #1. acute COVID 19 related pneumonia with secondary shortness of breath and hypoxic respiratory failure the patient's symptoms of generalized weakness and dehydration, currently on 4 L of oxygen by nasal cannula, patient was started on Remdesivir on 11/20/2020, Toci on 11/29/2020. Patient remains on Airvo at 60 L and FiO2 of 55% in addition to 100% nonrebreather mask #2. acute hypoxic respiratory failure, persistent #3. Acute blood loss anemia, related to large retroperitoneal hematoma, status post transfusion with 5 units of packed red blood cells and irradiated platelets #4. Acute urinary tract infection with sepsis, related to enterococcus faecalis, and E. coli #5. Hypothermia possibly related to sepsis, improved #6. Coronary artery disease with previous positive bypass surgery #7. Mild troponin leak, could be related to Covid 19 infection #8. History of AICD placement #9. Hypothyroidism #10. Diabetes mellitus with diabetic retinopathy #11. 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 Gout #13. Anemia of chronic disease #14. Hypothyroidism #15. Acute kidney injury #16. Acute left lower extremity DVT, and patient has a recent history of retroperitoneal bleeding, post IVC filter placement Plan: Patient remains on high flow oxygen per Airvo and 100% nonrebreather Vital signs have been stable No fever Clinically he looks quite fluid overloaded We'll obtain follow-up chest x-ray for tomorrow We'll give 1 dose of Lasix 40 mg His appetite is poor, and patient is being considered for PEG tube insertion possibly tomorrow Continue supportive treatment I performed a history & physical examination of the patient and discussed their management with my nurse practitioner, Iza Mccarthy. I reviewed the nurse practitioner's note and agree with the documented findings and plan of care. Lung sounds are positive for bibasilar crackles. The findings and the impression was discussed with the patient. I attest to the documentation by the nurse practitioner. Time with Patient: Less than 30
[2020-12-14 16:34] LABS: Glucose,Whole Blood 153 mg/dL (75-99)
[2020-12-14] MEDS: allopurinoL 100 MG TAB PO SCH (18:13)
--- NOTE | 2020-12-14 19:18 | P.PN ---
Progress Note - Text Progress Note Date: 12/14/20 Chief Complaint: Tired History of presenting complaint: Pleasant 75-year-old patient of Dr. Horta. Chronic stable medical conditions include diabetes, hypothyroid, gout, peripheral neuropathy, diabetic retinopathy, chronic kidney disease, coronary artery disease with a history of bypass and AICD. Patient's is by the bedside who provides most of the history. Patient about 7 days ago on Friday every couple of days before that has started feeling a little bit tired. Motor worse on Friday. Also developed a fever. Decreased appetite diet. Had some diarrhea. Body aches. No loss of smell or taste. Patient did have COVID rapid tested on that was negative. Now becomes short of breath with minimal exertion tired rundown. Patient is tested positive for COVID 19. Initial pulse ox on room air was 98% and then did go down to 94% on 2 L. Admitted with acute bilateral COVID 19 pneumonitis, acute hypoxic respiratory failure, acute myocarditis. Placed on dexamethasone Lovenox. IV Remdesivir. Patient is requiring high flow oxygen. Patient dropped his hemoglobin on the . Receive 2 units of blood. Patient's front of her retroperitoneal bleed. Received a total of 4 units of blood. Left leg DVT-IVC filter placed on December 08. Today: Sitting in a recliner. Tired. Awake. Oral intake low. Answering questions. Slowly Review of systems: Was done for constitutional, cardiovascular, GI, pulmonary. relevant finding as above Active Medications Acetaminophen (Acetaminophen Tab 325 Mg Tab) 650 mg PO Q6HR PRN PRN Reason: Fever and/ or Pain Last Admin: 12/06/20 20:49 Dose: 650 mg Documented by: Allopurinol (Allopurinol 100 Mg Tab) 100 mg PO W/SUPPER [facility] Last Admin: 12/14/20 18:13 Dose: 100 mg Documented by: Alprazolam (Alprazolam 0.25 Mg Tab) 0.25 mg PO Q8HR PRN PRN Reason: Anxiety Last Admin: 12/08/20 05:29 Dose: 0.25 mg Documented by: Ascorbic Acid (Ascorbic Acid 500 Mg Tab) 500 mg PO BID [facility] Last Admin: 12/14/20 08:51 Dose: 500 mg Documented by: Atorvastatin Calcium (Atorvastatin 40 Mg Tab) 40 mg PO HS [facility] Last Admin: 12/13/20 20:48 Dose: 40 mg Documented by: Calcium Carbonate/Glycine (Calcium Carbonate 500 Mg Chewable) 1,000 mg PO ONCE PRN PRN Reason: Heartburn Last Admin: 12/12/20 11:44 Dose: 1,000 mg Documented by: Carvedilol (Carvedilol 6.25 Mg Tab) 6.25 mg PO BID-W/MEALS [facility] Last Admin: 12/14/20 18:13 Dose: 6.25 mg Documented by: Cholecalciferol (Cholecalciferol 25 Mcg (1000 Iu) Tablet) 100 mcg PO DAILY [facility] Last Admin: 12/14/20 08:50 Dose: 100 mcg Documented by: Darbepoetin Rizwan (Darbepoetin Rizwan 40 Mcg/0.4 Ml Syringe) 40 mcg SQ Q7D [facility] Last Admin: 12/12/20 11:43 Dose: 40 mcg Documented by: Desmopressin Acetate (Desmopressin Acetate 4 Mcg/Ml Vial (Mdv)) 1 mcg SQ DAILY [facility] Last Admin: 12/14/20 12:35 Dose: 1 mcg Documented by: Dexamethasone Sodium Phosphate (Dexamethasone Sod Phosphate 10 Mg/Ml 1 Ml Vial) 6 mg IV DAILY [facility] Last Admin: 12/14/20 09:00 Dose: 6 mg Documented by: Famotidine (Famotidine 20 Mg Tab) 20 mg PO DAILY [facility] Last Admin: 12/14/20 08:51 Dose: 20 mg Documented by: Ferrous Sulfate (Ferrous Sulfate 325 Mg Tab) 325 mg PO BID@1200,1800 [facility] Last Admin: 12/14/20 18:13 Dose: 325 mg Documented by: Furosemide (Furosemide 10 Mg/Ml 4 Ml Vial) 40 mg IV DAILY [facility] Last Admin: 12/14/20 12:35 Dose: 40 mg Documented by: Cefepime HCl 2 gm/ Sodium (Chloride) 100 mls @ 25 mls/hr IVPB Q24HR [facility] Last Admin: 12/14/20 08:58 Dose: 25 mls/hr Documented by: Insulin Aspart (Insulin Aspart (Novolog) 100 Unit/Ml Vial) 0 unit SQ ACHS [facility]; Protocol Last Admin: 12/14/20 18:13 Dose: Not Given Documented by: Insulin Detemir (Insulin Detemir (Levemir) 100 Unit/Ml Syr) 35 unit SQ DAILY@0700 [facility] Last Admin: 12/14/20 08:44 Dose: Not Given Documented by: Insulin Detemir (Insulin Detemir (Levemir) 100 Unit/Ml Syr) 35 unit SQ [facility] Last Admin: 12/13/20 20:48 Dose: Not Given Documented by: Levothyroxine Sodium (Levothyroxine 100 Mcg Tab) 100 mcg PO 0630 [facility] Last Admin: 12/14/20 05:15 Dose: 100 mcg Documented by: Linezolid (Linezolid 600 Mg Tab) 600 mg PO Q12HR [facility] Last Admin: 12/14/20 09:09 Dose: 600 mg Documented by: Naloxone HCl (Naloxone 0.4 Mg/Ml 1 Ml Vial) 0.2 mg IV Q2M PRN PRN Reason: Opioid Reversal Pantoprazole Sodium (Pantoprazole 40 Mg/10 Ml Vial) 40 mg IVP BID [facility] Last Admin: 12/14/20 09:06 Dose: Not Given Documented by: Repaglinide (Repaglinide 1 Mg Tab) 0.25 mg PO AC-BID [facility] Last Admin: 12/14/20 18:13 Dose: 0.25 mg Documented by: Tamsulosin HCl (Tamsulosin 0.4 Mg Cap.Er.24h) 0.4 mg PO [facility] Last Admin: 12/13/20 20:48 Dose: 0.4 mg Documented by: Zinc Sulfate (Zinc Sulfate 220 Mg Cap) 220 mg PO DAILY [facility] Last Admin: 12/14/20 08:51 Dose: 220 mg Documented by: Past medical history to include: Diabetes, hypothyroid, gout, diabetic peripheral neuropathy, diabetic retinopathy, chronic kidney disease stage IV, coronary artery disease with bypass, AICD Social history: No history of smoking or alcohol. . 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 PSYCH: Awake, tired, following commands NEUROLOGICAL: Cranial nerves grossly intact; no facial asymmetry, moving all 4 limbs Rest of exam per pulmonary and nursing INVESTIGATIONS, reviewed in the clinical context: December 14: WBC 7.2 hemoglobin 7.6 platelets 43 potassium 4.6 bun 112 creatinine 3.1 December 08: Accu-Cheks 59, 63 Ultrasound Doppler lower extremity bilateral: Acute DVT in the left lower extremity with hyperexpanded material filling the lumen and absent color flow begins in the superficial femoral vein and more prominent findings in the mid and distal sebaceous femoral vein. December 07: WBC 20.04 hemoglobin 7.6 platelets 66 potassium 4.7 creatinine 3.2 bun 154 calcium 6.1 phosphorus 8 Computed tomography scan of abdomen and pelvis: Fairly moderate to large size pelvic retroperitoneal hematoma with local mass effect. Mild cortical thinning in both the kidneys. November 21: Potassium 4.8 creatinine 2.7 2-D echocardiogram: EF 50-55% November 20 Potassium 5.1 creatinine 2.85 d-dimer 0.47 CRP 70 WBC 3.2 hemoglobin 9.7 platelets 164 lymphocytes 0.5 sodium 131 potassium 4.8 bun 61 creatinine 3.37 Troponin I 0.073, 0.073, 0.068 albumin 3.2 Urine protein 2+ moderate blood Coronavirus [PCR] detected EKG tracing personally reviewed by me-normal sinus rhythm Chest x-ray film personally reviewed by me-bilateral infiltrates Renal ultrasound-normal Assessment and plan: -Acute bilateral COVID 19 pneumonia. Symptoms started about a week before presentation.-Slow to respond on IV dexamethasone, subcu Lovenox-held, vitamin C vitamin D Pepcid and zinc. November 20 - Remdesivir -Acute hypoxic respiratory failure, secondary to COVID 19 pneumonia: -Slow to respond Advanced to a Airvo/nonrebreather 60/65% -Acute myocarditis secondary to COVID 19 Telemetry. watch for arrhythmias. -Acute kidney injury likely ATN from sepsis from COVID 19, hypertension.-Slow to respond . IV fluids -Chronic kidney disease stage IV secondary to diabetic kidney disease. Creati nine 2.17 August 2020 Follow renal function -AICD On telemetry -Coronary artery disease with prior history of carotid bypass Continue with Coreg, Lipitor, aspirin -Hypothyroid Continue with Synthroid -Diabetes mellitus type 2, on oral hypoglycemic, uncontrolled with hyperglycemia Follow Accu-Cheks with sliding scale insulin. Increase Levemir to 28 units at night -Chronic gout Continue with allopurinol -Anemia of chronic kidney disease Follow H&H and continue with erythropoietin -Diabetic retinopathy Follow clinically -Diabetic peripheral neuropathy Follow clinically -Hyponatremia from a relative decrease in solute from decreased appetite- improving Saline IV -Metabolic acidosis due to chronic kidney disease Supplement bicarb -Acute retroperitoneal bleed likely from patient being on Lovenox Lovenox has been on hold. General surgery -weight and watch -Acute severe blood loss anemia from retroperitoneal bleed Patient was received a total of 4 units of blood by today -Acute left lower extremity above-knee DVT-new diagnosis today Lighter Captain vascular surgery. Patient not a candidate for anticoagulation. IVC filter, cook/la nena -Hyperphosphatemia due to acute on chronic kidney disease -Thrombocytopenia likely from underlying infection -CODE STATUS DO NOT RESUSCITATE Patient is somewhat perked up in the last 2 days. Eating small amounts. Up in a chair recliner. Spoke to Dr. Pacheco today. We'll take it day by day. Also called the patient's at home and discussed the clinical picture. Continue to follow a by day. Prognosis still remains guarded. Total time spent today about 40 minutes with over 20 minutes of discussion
[2020-12-14 20:04] LABS: Glucose,Whole Blood 317 mg/dL (75-99)
[2020-12-14] MEDS: ATORVASTATIN 40 MG TAB PO SCH (20:08)
[2020-12-14] MEDS: TAMSULOSIN 0.4 MG CAP.ER.24H PO SCH (20:09)
[2020-12-15] MEDS: LEVOTHYROXINE 100 MCG TAB PO SCH (03:21)
--- NOTE | 2020-12-15 06:56 | XR ---
EXAMINATION TYPE: XR chest 1V portable DATE OF EXAM: 12/15/2020 CLINICAL HISTORY: Difficulty breathing progress study. TECHNIQUE: Single AP portable upright view of the chest is obtained. COMPARISON: Chest x-ray from 3 days earlier and older studies. FINDINGS: Overlying sternal wires and mediastinal clips. Persistent cardiomegaly with dual lead pace maker/defibrillator. Low lung volumes chronic parenchymal changes with bibasilar and right midlung op acities. Osseous structures are intact. IMPRESSION: Low lung volumes and cardiomegaly with chronic parenchymal changes and bilateral lower marcelo ngs multifocal and confluent opacities consistent with covid-19 infection, no significant change from most recent x-ray.
[2020-12-15 07:24] LABS: Glucose,Whole Blood 192 mg/dL (75-99)
[2020-12-15 08:02] LABS: Anisocytosis Slight; Basophils % (A) 0 %; Eosinophils # (A) 0.3 k/uL (0-0.7); Eosinophils % (A) 5 %; HCT 20.3 % (39.0-53.0); Lymphocytes # (A) 0.3 k/uL (1.0-4.8); Lymphocytes % (A) 6 %; MCH 32.9 pg (25.0-35.0); MCHC 34.2 g/dL (31.0-37.0); MCV 96.2 fL (80.0-100.0); Macrocytosis Slight; Mean Platelet Volume 10.1; Monocytes # (A) 0.3 k/uL (0-1.0); Monocytes % (A) 5 %; Neutrophils # (A) 4.1 k/uL (1.3-7.7); Neutrophils % (A) 83 %; RBC 2.11 m/uL (4.30-5.90); RDW 18.5 % (11.5-15.5); WBC 4.9 k/uL (3.8-10.6)
[2020-12-15] MEDS: INSULIN DETEMIR (LEVEMIR) 100 UNIT/ML SYR SQ SCH ×2 (08:11→21:44)
[2020-12-15] MEDS: INSULIN ASPART (NovoLOG) 100 UNIT/ML VIAL SQ SCH ×4 (08:12→21:43)
[2020-12-15 08:16] LABS: HGB 6.9 gm/dL (13.0-17.5)
[2020-12-15 08:17] LABS: Platelet Count 31 k/uL (150-450)
[2020-12-15 08:25] LABS: African American GFR (CKD) 21 (>60 ml/min/1.73 sqM); Anion Gap 8 mmol/L; Calcium 6.5 mg/dL (8.4-10.2); Carbon Dioxide 24 mmol/L (22-30); Chloride 107 mmol/L (98-107); Glucose 159 mg/dL (74-99); Non-African American GFR(CKD) 19 (>60 ml/min/1.73 sqM); Potassium 4.4 mmol/L (3.5-5.1); Sodium 139 mmol/L (137-145)
[2020-12-15] MEDS: FUROSEMIDE 10 MG/ML 4 ML VIAL IV SCH (08:29)
[2020-12-15] MEDS: CHOLECALCIFEROL 25 MCG (1000 IU) TABLET PO SCH (08:33)
[2020-12-15] MEDS: carvediloL 6.25 MG TAB PO SCH ×2 (08:33→16:45)
[2020-12-15] MEDS: ASCORBIC ACID 500 MG TAB PO SCH (08:33)
[2020-12-15] MEDS: REPAGLINIDE 1 MG TAB PO SCH ×2 (08:33→16:45)
[2020-12-15] MEDS: FAMOTIDINE 20 MG TAB PO SCH (08:34)
[2020-12-15] MEDS: ZINC SULFATE 220 MG CAP PO SCH (08:34)
[2020-12-15 08:42] LABS: Blood Urea Nitrogen 114 mg/dL (9-20)
[2020-12-15] MEDS: CEFEPIME 2 GM in SODIUM CHLORIDE 0.9% 100 ML IVPB SCH (08:44)
[2020-12-15] MEDS: DESMOPRESSIN ACETATE 4 MCG/ML VIAL (MDV) SQ SCH (08:45)
[2020-12-15] MEDS: DEXAMETHASONE SOD PHOSPHATE 10 MG/ML 1 ML VIAL IV SCH (08:45)
[2020-12-15] MEDS: PANTOPRAZOLE 40 MG/10 ML VIAL IVP SCH ×2 (08:45→21:42)
[2020-12-15 09:41] LABS: Anisocytosis Slight; Basophils % (A) 0 %; Eosinophils # (A) 0.3 k/uL (0-0.7); Eosinophils % (A) 6 %; HCT 20.4 % (39.0-53.0); Lymphocytes # (A) 0.3 k/uL (1.0-4.8); Lymphocytes % (A) 5 %; MCH 33.3 pg (25.0-35.0); MCV 97.8 fL (80.0-100.0); Macrocytosis Slight; Monocytes # (A) 0.2 k/uL (0-1.0); Monocytes % (A) 4 %; Neutrophils # (A) 4.3 k/uL (1.3-7.7); Neutrophils % (A) 84 %; Platelet Count 28 k/uL (150-450); RBC 2.08 m/uL (4.30-5.90); RDW 18.7 % (11.5-15.5); WBC 5.1 k/uL (3.8-10.6)
[2020-12-15 10:08] LABS: HGB 6.9 gm/dL (13.0-17.5)
--- NOTE | 2020-12-15 11:23 | P.PN ---
Subjective Progress Note Date: 12/15/20 CHIEF COMPLAINT: Protein malnutrition HISTORY OF PRESENT ILLNESS: The patient is a 75-year-old male with COVID pneumonia including generalized weakness found to have retroperitoneal hematoma during hospitalization including persistent anemia. During his hospitalization, patient had decreased oral intake. Calorie counts for the last 2 days demonstrate patient prefers pudding including applesauce. Additionally he had pancakes. He eats 100% of the foods he desires however calorie count is subopt imal for his height and weight. Upon discussion with nurse and patient, patient declines a gastrostomy tube. Patient's hemoglobin count now less than 7.0 and platelets less than 50. ROS: No reports of nausea and vomiting. No fevers or chills. PHYSICAL EXAM: VITAL SIGNS: Reviewed CONSTITUTIONAL: Well developed and in no acute distress. EYES: Conjuctivae without sclera icterus. Extraocular movements grossly intact. HEAD, EARS, NOSE, THROAT: Moist buccal mucosa. Head is atraumatic, norm ocephalic. Hears conversational speech. No nasal drainage. NECK: Supple. RESPIRATORY: Non-labored respirations and equal bilateral excursions. Has modulated nasal cannula CARDIOVASCULAR: Palpable 2+ radial pulses. ABDOMEN: No peritonitis. MUSCULOSKELETAL: No gross deformity of the lower extremities noted. No clubbing SKIN: Good skin turgor. Well perfused. NEUROLOGIC: No focal or lateralizing signs. PSYCH: Lethargic. CLINICAL LABS: Hemoglobin declined from 8.0-6.9. Platelets down from 55-28. ASSESSMENT: 1. Inadequate oral intake. 2. Protein calorie malnutrition 3. Covid pneumonia 4. DVT contraindicated anticoagulation 5. Retroperitoneal hematoma PLAN: 1. At this time, patient has declined gastrostomy tube. No consent on chart. 2. Patient has severe thrombocytopenia with severe anemia making patient very high risk for gastrostomy tube placement. 3. Recommend alternative noninvasive procedures such as orogastric tube feeds. May also consider TPN Objective - Vital Signs Vital signs: Vital Signs Temp 98 F 12/15/20 10:00 Pulse 83 12/15/20 10:00 Resp 16 12/15/20 10:00 BP 124/73 12/15/20 10:00 Pulse Ox 88 L 12/15/20 10:00 Intake & Output 12/14/20 12/15/20 12/15/20 18:59 06:59 18:59 Output Total 200 650 Balance -200 -650 Weight 85.2 kg Output: Urine 200 650 Other: Voiding Method Indwelling Catheter Indwelling Catheter Indwelling Catheter - Labs CBC & Chem 7: 12/15/20 08:59 12/15/20 07:31 Labs: Abnormal Lab Results - Last 24 Hours (Table) 12/14/20 12/14/20 12/14/20 Range/Units 10:17 11:39 15:40 RBC (4.30-5.90) m/uL Hgb (13.0-17.5) gm/dL Hct (39.0-53.0) % RDW (11.5-15.5) % Plt Count (150-450) k/uL Lymphocytes # (1.0-4.8) k/uL APTT 20.9 L (22.0-30.0) sec BUN 112 H* (9-20) mg/dL Creatinine 3.10 H (0.66-1.25) mg/dL Glucose 117 H (74-99) mg/dL POC Glucose (mg/dL) 248 H (75-99) mg/dL Calcium 6.8 L (8.4-10.2) mg/dL 12/14/20 12/14/20 12/15/20 Range/Units 16:28 20:01 07:23 RBC (4.30-5.90) m/uL Hgb (13.0-17.5) gm/dL Hct (39.0-53.0) % RDW (11.5-15.5) % Plt Count (150-450) k/uL Lymphocytes # (1.0-4.8) k/uL APTT (22.0-30.0) sec BUN (9-20) mg/dL Creatinine (0.66-1.25) mg/dL Glucose (74-99) mg/dL POC Glucose (mg/dL) 153 H 317 H 192 H (75-99) mg/dL Calcium (8.4-10.2) mg/dL 12/15/20 12/15/20 12/15/20 Range/Units 07:31 07:31 08:59 RBC 2.11 L 2.08 L (4.30-5.90) m/uL Hgb 6.9 L* (13.0-17.5) gm/dL Hct 20.3 L 20.4 L (39.0-53.0) % RDW 18.5 H 18.7 H (11.5-15.5) % Plt Count 31 L 28 L (150-450) k/uL Lymphocytes # 0.3 L 0.3 L (1.0-4.8) k/uL APTT (22.0-30.0) sec BUN 114 H* (9-20) mg/dL Creatinine 3.14 H (0.66-1.25) mg/dL Glucose 159 H (74-99) mg/dL POC Glucose (mg/dL) (75-99) mg/dL Calcium 6.5 L (8.4-10.2) mg/dL Assessment and Plan (1) Protein calorie malnutrition Current Visit: Yes Status: Acute Code(s): E46 - UNSPECIFIED PROTEIN-CALORIE MALNUTRITION SNOMED Code(s): 049681165 (2) Inadequate dietary intake of protein Current Visit: Yes Status: Acute Code(s): E63.9 - NUTRITIONAL DEFICIENCY, UNSPECIFIED SNOMED Code(s): 217153900 (3) Pneumonia due to COVID-19 virus Current Visit: Yes Status: Acute Code(s): U07.1 - COVID-19; J12.82 - Pneumonia due to coronavirus disease 2019 SNOMED Code(s): 401705112282937208 (4) Acute on chronic renal failure Current Visit: Yes Status: Acute Priority: High Code(s): N17.9 - ACUTE KIDNEY FAILURE, UNSPECIFIED; N18.9 - CHRONIC KIDNEY DISEASE, UNSPECIFIED SNOMED Code(s): 657957305 (5) COVID-19 Current Visit: Yes Status: Acute Code(s): U07.1 - COVID-19 SNOMED Code(s): 480175904 (6) DVT (deep venous thrombosis) Current Visit: Yes Status: Acute Priority: High Code(s): I82.409 - ACUTE EMBOLISM AND THOMBOS UNSP DEEP VN UNSP LOWER EXTREMITY SNOMED Code(s): 623926964 (7) Retroperitoneal hematoma Current Visit: Yes Status: Acute Priority: High Code(s): K66.1 - HEMOPERITONEUM SNOMED Code(s): 174751034 (8) Thrombocytopenia Current Visit: Yes Status: Acute Priority: High Code(s): D69.6 - THROMBOCYTOPENIA, UNSPECIFIED SNOMED Code(s): 020825275
[2020-12-15 11:53] LABS: Glucose,Whole Blood 222 mg/dL (75-99)
[2020-12-15] MEDS: FERROUS SULFATE 325 MG TAB PO SCH ×2 (12:27→16:45)
--- NOTE | 2020-12-15 12:41 | CDI ---
Documentation Clarification Form Date: 12/15/2020 12:27:38 PM From: Xochilt Hardy CCS, CCDS Admit Date: 11/19/2020 02:16:00 AM Patient Name: Lee Pena Visit Number: [id number] Discharge Date: ATTENTION: The Clinical Documentation Specialists (CDI) and [facility] Coding Staff appreciate your assistance in clarifying documentation. Please respond to the clarification below the line at the bottom and electronically sign. The CDI & [facility] Coding staff will review the response and follow-up if needed. Please note: Queries are made part of the Legal Health Record. If you have any questions, please contact the author of this message via ITS. Dr. Yanet Levin: Protein Calorie Malnutrition is documented in the 12/15 Surgeon's Progress Note. Additional clarification regarding the severity of malnutrition is requested. History/Risk Factors per the 11/19 ED Note History of Present Illness: CAD, AICD & CABG, DM II, Diabetic Neuropathy bilateral hands & feet, Diabetic Retinopathy, CKD Stage IV, Gout. Clinical Indicators: Presented to the ED on 11/19 via EMS with weakness & fatigue. Outpatient COVID test was negative (date/site not documented.) Tested positive for COVID in ED and admitted with same along with Weakness & TODD on CKD. Current BMI (as of 12/15): 29.4 Per the 12/15 General Surgery Progress Note: Generalized weakness, found to have retroperitoneal hematoma during hospitalization including persistent anemia. During his hospitalization, patient had decreased oral intake. He eats 100% of the foods he desires however calorie count is suboptimal for his height and weight. Upon discussion with nurse and patient, patient declines a gastrostomy tube. Dietitian consulted on 12/12: Nutrition Intake poor, consumed -=25%, Poor appetite, Receiving oral supplements: Ensure Compact & Ensure Enlive TID. Weight 85.2 kg (bedscale) Height 5 ft 7 in BMI: normal Calculated IBW 67.3 kg. % IB: 127%. Treatment as of 12/12: IV Cefepime, IV Calcium Gluconate. Followed by Nephrology, Pulmonary, General Surgery, Infectious Disease and Hematology. Patient refused PEG tube. Possible OG and TPN. Please clarify the type of malnutrition, if known: [ X ] Mild Protein-Calorie Malnutrition [ ] Moderate Protein-Calorie Malnutrition [ ] Severe Protein-Calorie Malnutrition [ ] Other condition, please specify [ ] Unable to Determine (Template Last Revised: October 2020) [ X ] Mild Protein-Calorie Malnutrition 12/16/20 @ [facility]
--- NOTE | 2020-12-15 14:27 | PN ---
PROGRESS NOTE The patient is seen for followup for chronic kidney disease. He is being treated for COVID pneumonia. He continues to require large amounts of oxygen. He was started on Lasix yesterday. Serum creatinine is fairly stable. There was some decrease in his oxygen requirement. Overall general condition, however, is about the same. PHYSICAL EXAMINATION: On examination today, blood pressure 144/72, heart rate 84 per minute. Patient is afebrile. Examination of lower extremities shows edema 1+ left lower extremity. No edema noted in the right lower extremity. Abdomen is soft, nontender. LABS: Labs show hemoglobin 6.9, sodium of 139, potassium 4.4, chloride 107, CO2 is 24 BUN 114, serum creatinine 3.14. ASSESSMENT: 1. Chronic kidney disease NKF stage 4. Baseline creatinine around 2 currently staying mostly around 3 mg/dL. Patient received about 2-3 doses of IV Lasix recently. Renal function is fairly stable. He can possibly receive another dose tomorrow. He has had significant worsening of renal function with diuresis previously. There is no edema in his right leg and the left leg edema is due to his deep vein thrombosis. The oxygenation may have improved slightly. Therefore, we will repeat another dose tomorrow. 2. COVID pneumonia. 3. Generalized debility. 4. Left lower extremity deep venous thrombosis, status post Ketty filter placement. 5. Urinary tract infection with urine culture growing Escherichia coli and Enterococcus faecalis. 6. Anemia with multiple episodes of significant drop in hemoglobin requiring packed RBCs transfusion. No active bleeding noted. Patient is maintained on Aranesp. PLAN: Continue with Aranesp. Can repeat another dose of Lasix tomorrow. Overall prognosis is guarded. MMODL / IJN: [id number] /
[2020-12-15] MEDS: allopurinoL 100 MG TAB PO SCH (16:45)
--- NOTE | 2020-12-15 16:45 | P.PN ---
Subjective Progress Note Date: 12/15/20 Principal diagnosis: Acute COVID-19 pneumonia Acute COVID-19 pneumonia 75-year-old male patient, started having symptoms approximately a week ago when he started feeling a bit tired and fatigued. He subsequently developed fever and diminished appetite and some diarrhea. The patient tested positive for COVID 19 infection 4 days ago and this was again confirmed on 11/19/2020. The patient came into the emergency with weakness and shortness of breath. The patient is currently on 2 L of oxygen by nasal cannula. He is known to have CAD, previous bypass, aortic, chronic disease, diabetes mellitus and diabetic retinopathy and neuropathy and hypothyroidism and gout. Lactate was 0.7, there d-dimer was 0.6, white cell count was at 3.2 with a lymphopenia, creatinine was at 3.37 with a mean of 61. He is also on multivitamins. Chest x-ray showing diffuse bilateral pulmonary infiltrates. On today's evaluation of 4 [id number],021 the patient is currently on oxygen at 4 L per minute. The patient is quite comfortable. Pulse ox is around 95% and FiO2 can be obviously weaned off. The patient is being seen for a follow-up. The patient is currently being treated with Decadron 6 mg IV every 24 hours. The patient is also on Lovenox 40 mg subcu daily and the patient is also on Remdesivir day #2. No follow-up chest x-rays available from today. The rest of the labs are showing chronic kidney disease with a creatinine of 2.7. The patient has chronic metabolic acidosis which is of a non-anion gap type. On 11/22/2020 patient seen in follow-up. Is comfortable, still desat easily, feels tired, but no acute distress, today's labs have been reviewed, d-dimer 0.69, CRP is 35.6, no LDH. Has not had a chest x-ray, he is currently on 7 L, his pulse ox is 89%, no fever, remains on Remdesivir, today is day 3 of treatment. On 11/23/2020 patient is pretty stable, he remains on 5 L of oxygen, her pulse ox 89-90%, he is breathing comfortably, no worsening dyspnea, his 0.9, saline at 60 per hour, patient completed Remdesivir treatment, he remains on steroids, and prophylactic Lovenox. No worsening dyspnea, today's labs have been reviewed, d- dimer is 1.90, renal profile is slightly improved from yesterday, patient continues on IV fluids, no nausea vomiting or diarrhea, CRP is trending down, LDH with today is pending. On 11/25/2000 patient seen in follow-up on medical surgical floor, he is sitting up in the chair, appears to be breathing comfortably although his oxygen requirements have increased, and is currently on 15 L per high flow nasal cannula up from 12 L from yesterday, he denies any worsening dyspnea, lung sounds reveal diffuse bilateral crackles, no chest discomfort, no signs of any respiratory distress. No cough, no wheezing, today's chest x-ray shows bilateral mid to lower lung increased opacities, findings consistent with COVID- 19 pneumonia, the findings are stable in appearance. Follow-up inflammatory markers showed d-dimer of 19.16, LDH is up to 2028, CRP is 2.4. Patient has completed his Remdesivir course, she remains on daily dose of Decadron 6 mg, and Lovenox 30 mg daily, his renal function appears to be relatively stable, his bun is 64, and creatinine is 2.12 On 11/26/2020 patient seen in follow-up on medical surgical floor, he sitting up in the chair, he is breathing comfortably, he is currently down to 13 L, and his pulse ox is 90-94%, his been afebrile, overall she looks stable, he does not appear to be in any acute distress, he is a d-dimer has trended up, and on today's labs it is up to 30.3, and his Lovenox dose will be adjusted. Today's inflammatory markers are improving. He remains on daily dose IV Decadron 6 mg daily, Lovenox, multivitamins, and his IV fluids are infusing at a rate of 60 ML per hour, no new chest x-ray today, his kidney function shows slight improvement On 11/27/2000 patient seen in follow-up on medical surgical floor, he remains on high flow oxygen 15 L, and the nonrebreather mask, he does desat when he removes his nonrebreather mask down to 86% however he denies any dyspnea, he does not feel stressed at all, and looks very comfortable, he sitting up in the recliner, awake and alert, oriented 3, he is afebrile, hemodynamically has been stable, he has no specific complaints, and his today's chest x-ray shows cardiomegaly and low lung volumes with bilateral mid to lower lung reticular and confluent opacities consistent with COVID-19 pneumonia with no change from previousexam. Today's labs have been reviewed, white blood cell count is 5.45, hemoglobin is 9.3, no d-dimer today, but yesterday's d-dimer was quite elevated at 30.3, and his Lovenox dose was adjusted and increased to 40 mg twice a day, his electrolyte panel shows CO2 of 28.1, but prostate electrolytes are within normal limits, B1 is 84, creatinine is 2.2, his LDH is down to 687, improving, his CRP is 1.2 on today's labs. He continues on Decadron 6 mg daily, he is on Lovenox 40 mg twice a day, and he is receiving IV hydration at 60 ML per hour, nephrology is following On 11/28/2020 patient seen in follow-up on medical surgical floor, he is resting comfortably in bed, he is currently on 15 L high flow and 100% nonrebreather, he looks quite comfortable, he denies any shortness of breath, minimal cough, he is breathing comfortably, his pro-calcitonin level was low, his inflammatory markers were improving, his d-dimer was elevated on 11/26/2020 patient is on 40 mg of Lovenox twice daily, Lasix is at 40 mg every 12 hours patient is in negative fluid balance. No new chest x-ray today On 11/29/2000 patient seen in follow-up on medical surgical floor, is currently on 15 L per high flow nasal cannula, and 100 nonrebreather mask, and he is satting about 93%, he does not feel short of breath, he seems to be breathing very comfortably, he is afebrile, hemodynamically stable, his chest x-ray today shows low lung volumes with bilateral mid to lower lung reticular and confluent opacities consistent with COVID-19 pneumonia. Findings are similar to his previous chest x-ray, lower extremity Dopplers were completed and he was negative for DVT. His d-dimer is trending down, and is down to 16.0. The rest of his lab work has been reviewed, showing white blood cell count of 8.7, hemoglobin of 10.5, sodium is 136, potassium is 4.5, chloride is 98, BUN of 108, and creatinine is 3.2, his calcitonin level was negative at 0.10, his inflammatory markers were improving since admission. No nausea vomiting or diarrhea, and patient continues on daily dose of IV Decadron 6 mg, continues on Lovenox 40 mg twice daily, she was given a dose of Lasix yesterday and he was started on maintenance dose of IV Lasix On 11/30/2020 patient seen in follow-up on medical surgical floor, he is resting comfortably in bed, currently off the nonrebreather mask, on 15 L per high flow nasal cannula with his pulse ox is 90-91%, he looks very comfortable, breathing comfortably, no worsening dyspnea. Cooperative chest discomfort, no cough. No fever or chills. No acute events overnight, patient did receive 1 dose of Toci yesterday 720 mg, he remains on Lovenox 40 mg twice a day, and daily dose Decadron, today's labs have been reviewed, showing white blood cell, 10.1, hemoglobin of 10.3, d-dimer is trending down, down to 11.4, electrolytes are within normal limits, renal profile shows some improvement, pro-Joshua was negative, inflammatory markers are trending down, patient denies any specific complaints On 12/01/2020 patient seen in follow-up on medical surgical floor, is currently on 15 L per high flow nasal cannula and nonrebreather mask, and his pulse ox is 100%, he is breathing very comfortably, denies any cough, denies any chest pain, has had no fever or chills, no nausea vomiting diarrhea, no abdominal pain, no new chest x-rays, his labs have been reviewed, d-dimer today is 12.5, electroly angel are unremarkable, his renal profile slightly improved, his BUN is 113, and creatinine is 2.59. On 12/02/2020 patient seen in follow-up on medical surgical floor, he is currently back on 11 L of oxygen resting comfortably in bed, in comfortably, in his pulse ox was 99%, we dropped the FiO2 down to 8 L, and we instructed the nursing staff to continue weaning it to maintain O2 saturations at or above 90%, patient has no specific complaints, no cough, no chest discomfort, no fever, no chills no headaches, no nausea vomiting or diarrhea. Renal function continues to be impaired, and nephrology is following, his BUN is 1:30, and creatinine is 2.70, electrolytes were unremarkable on today's labs. No new chest x-ray today. Patient remains on IV Decadron 6 mg, and Lovenox is currently at 40 mg twice daily. Follow-up d-dimer is pending for today. On the 12/04/2020 patient seen in follow-up on medical surgical floor, he is currently on 7 L per high flow nasal cannula, his pulse ox is about 86-95%, although she looks very pale, his hemoglobin today is down to 6.0 and patient has not had any obvious bleeding, no hematemesis, no melena, abdomen is soft, no abdominal pain, he is a bit drowsy, he is mildly short of breath but does not appear to be in any acute distress, he was also found to be hypothermic, and appear hugger was applied, he received a unit of packed red blood cells, on in the 2 units are pending for transfusion today, today's labs have been reviewed, his white count is 23.6, his platelet count is down to 93,000, his neutrophil count is 21.5, a remains lymphopenic as well, and lymphocyte count is 0.48, serum sodium is 131, potassium is 5.0, chloride is 106, CO2 is 15, creatinine is 148, and creatinine of 3.36, serum calcium is 5.9, his last LDH from 12/03/2020 was 1654, and CRP was 0.9, CA urinalysis was sent and there is possibility of urinary tract infection with the large amounts of leukocytes esterase, white blood cells and white blood cells in clumps and many bacteria. Patient was started on cefepime, and Zyvox, ID service is following. Patient was increasingly more acidotic and he was given 1 puff sodium bicarbonates IV push, and was started on D5W with 3 A of bicarbonate at a rate of 50 ML per hour. No nausea vomiting or diarrhea. He received a dose of vancomycin yesterday, and vancomycin is being adjusted per pharmacy. Blood cultures are negative thus far On 12/05/2020 patient seen in follow-up on medical surgical floor. He is breat carla comfortably, he is resting in bed, he continues to require a bear hugger his current temp is currently 96.3 degrees utilizing a temporal artery. No obvious bleeding, patient is passing dark stools, however he also takes iron supplements, and the nurse states his stools are not obviously black and tarry, no hematemesis, abdomen is soft, no hematuria. No altered mentation, he is awake and alert, he is answering questions appropriately, he denies any worsening dyspnea, urine and blood cultures have been sent and are pending at this time, and patient is currently covered with cefepime, and Zyvox. Patient received 2 A of sodium bicarbonate this morning. Today's labs show a white blood cell count of 25.1, hemoglobin of 7.5, sodium is 132, potassium is 5.6, CO2 was 14, BUN was 156, creatinine is 3.49, lactic acid was 2.6, pro-calcitonin level is low at 0.28. Urinalysis suggest possibility of urinary tract infection. On 12/06/2020 patient seen in follow-up on medical surgical floor, he is resting quietly in bed, he still on high flow oxygen, currently at 15 L, his pulse ox is 94%, he states he is tired and sleepy, his hemoglobin is down to 6.1 today and again there is no clear evidence of bleeding, abdomen is soft, no hematemesis, no melena, patient is being transfused with 1 unit of packed red blood cells this morning, his white blood cell count was 20.6, his platelet count is 77, his anticoagulation has been on hold for last 48 hours, his BUN is up to 151, creatinine is 3.61. Plasma lactic acid was 3.1, patient is on antibiotics for possibility of sepsis, likely related to urinary tract infection, his urine culture showing gram-negative bacilli, fungal cultures pending, blood cultures have shown no growth. She remains on Decadron, and he is on cefepime and Zyvox. He received some fluid boluses 500 at 9:00 last night, and another 500 mL fluid bolus in the morning, she remains on D5W with 3 units of bicarbonate at a rate of 50 ML per hour. Nephrology is following. GI service has been consulted and CT of the demented pelvis are pending at this time On 12/07/2020 patient seen in follow-up on medical surgical floor, he is awake and alert, he looks better today, more awake, on today's exam, denies any worsening dyspnea, he is currently on 13 L of oxygen his pulse ox is 93%, his hemoglobin today is 7.6, patient 2 units of packed red blood cells yesterday and 2 units the day prior. His CT of the abdomen showed evidence of fairly moderate to large size left pelvic retroperitoneal hematoma with local mass effect, suggesting subacute possible acute on chronic etiology. Surgery was consulted and recommended conservative treatment. Patient has been off all anticoagulation, in his left leg on today's exam is quite large and swollen and for that reason lower extremity Doppler was obtained revealing acute DVT in the left leg. Resting blood work has been reviewed showing white blood cell count still elevated at 20.04, hemoglobin is 7.6 as mentioned above, platelet count is 66, today's d-dimer is 6.06 resting blood work is still pending. Hematology is following. Patient was also found to be septic, cultures showed Enterococcus faecalis, and patient is on a combination of cefepime and Zyvox, ID service is following. Appetite is poor, but his had no nausea vomiting or diarrhea, he is currently on D5W with 3 A of bicarbonate at a rate of 50 ML per hour. On 12/10/2020 patient seen in follow-up on medical surgical floor. Patient is very drowsy, he is poorly responsive, he remains on high flow oxygen at 60 L, and FiO2 of 78% in addition to nonrebreather mask, his pulse ox is around 90- 91%, he is on D5W at a rate of 50 ML per hour, as been hypothermic, with a temp as low as 95.6F, does not appear to be in any acute respiratory distress, however overall she seems quite debilitated, very weak and fatigued, he has not been eating. Overall his condition has been declining, patient is been maintained on steroids, his anticoagulation was placed on hold related to retroperitoneal bleeding, and patient required transfusions with blood, he then developed a DVT in his left lower extremity however in view of his bleeding he was not able to go back on anticoagulants and IVC filter was placed. Today's hemoglobin is 8.1, yesterday he received 1 more unit of blood for a hemoglobin of 6.8, and a unit of platelets. The platelet count was 69, and 75 on today's labs. No abdominal pain. Patient continues on cefepime and Zyvox, his urine culture was positive for E. coli and Enterococcus faecalis, blood cultures were negative On 12/12/2020 patient seen in follow-up on medical surgical floor. This was consulted and patient was seen by the hospice, however clinically he is looking a bit better today, and he is currently more awake and patient was actually hungry and was able to consume some oral nutrition. Patient is currently on Airvo at 60 L and FiO2 of 55% in addition to the nonrebreather mask, pulse ox is between 82-85%, afebrile, blood pressure is currently 136/64. Chest x-ray shows persistent patchy basilar infiltrates. Patient remains on antibiotics in the form of cefepime and Zyvox. His urine culture showed E. coli and Enterococcus faecalis, blood cultures show no growth. Today's labs have been reviewed, hence the renal function has actually improved since yesterday, his B1 is 115, creatinine is 2.89. Electrolytes are within normal limits, his platelet cell count is improving, and is down to 12.5, hemoglobin is 7.7, platelet count is 69. On 12/13/2020 patient seen in follow-up on medical surgical floor. Patient is sitting up in the chair, he is looking quite awake, and in no acute distress. Is on Airvo with 60 L and FiO2 of 90% and is looking quite comfortable. He's had no fever or chills, vital signs have been stable, he denies any dyspnea, he is breathing comfortably, no cough, no chest pain, he states he ate a good breakfast this morning. No nausea vomiting or diarrhea, he continues on cefepime, his had no fever chills, ID service is following, he remains on Decadron 6 mg daily, he is on D5 W at 100 ML per hour. Urine cultures were positive for E. coli and Enterococcus faecalis, blood cultures have been negative. White blood cell count of 9.0, hemoglobin is 8.0, electrolytes are within normal limits, BUN of 111, creatinine is 3.02. On 12/14/2020 patient seen in follow-up on medical surgical floor. Patient is awake and alert, he is currently on high flow oxygen, on Airvo at 60 L and FiO2 of 90%, and 100% nonrebreather mask and his pulse ox was noted to be at 96%, he denies any worsening dyspnea however when the nonrebreather mask was removed he was descending to low 80s, and more dyspneic, he was placed back on the nonrebreather mask. He is afebrile, hemodynamically stable. Denies any specific complaints, he is weak, and his appetite has been waxing and waning, and he is currently on calorie count. Registered dietitian is following. His oral intake is diminished, and patient is scheduled for PEG tube insertion possibly tomorrow. Overall he appears to be fluid overloaded, his last chest x- ray from 12/12/2020 showed persistent patchy basilar infiltrates. Patient has been receiving D5W at a rate of 100 ML per hour which was turned down to KVO this morning. This morning's labs have been reviewed showing white blood cell count is 7.2, hemoglobin is 7.6, electrolytes were within normal limits, BUN is 112 and creatinine is 3.10. On 12/15/2020 patient seen in follow-up on medical surgical floor, his mentation seems to have worsened, she is poorly responsive, he opens his eyes to vigorous tactile stimulation, he is on Airvo at 60 L and FiO2 of 80%, the nonrebreather mask was removed, his pulse ox is 89-90%, does not appear to be in any acute respiratory distress. Yesterday he was given a dose of IV Lasix, and he diuresed 850 ML over the last 24 hours. His oral intake is extremely poor, and now his mentation has worsened over the last 24 hours. Today's labs show hemoglobin of 6.9 and this was repeated and still came back at 6.9 patient is being transfused with 1 unit of packed red blood cells, platelet count is 31, electrolytes are within normal limits, and his renal profile is relatively stable with BUN of 114 and creatinine of 3.14. His chest x-ray shows low lung volumes and cardiomegaly with chronic parenchymal changes in bilateral lower lung multifocal and confluent opacities consistent with COVID-19 infection. There is no significant change from most recent chest x-ray. Objective - Vital Signs Vital signs: Vital Signs Temp 96.4 F L 12/15/20 14:51 Pulse 84 12/15/20 14:51 Resp 16 12/15/20 14:00 BP 139/80 12/15/20 14:51 Pulse Ox 90 L 12/15/20 14:51 Intake & Output 12/14/20 12/15/20 12/15/20 18:59 06:59 18:59 Intake Total 550 Output Total 200 650 Balance -200 -650 550 Weight 85.2 kg 85.2 kg Intake: Oral 240 Blood Product 310 Rc Pheresis 2 As3 Unit 310 [id number] Output: Urine 200 650 Other: Voiding Method Indwelling Catheter Indwelling Catheter Indwelling Catheter - Exam GENERAL EXAM: 75-year-old white male, lethargic Airvo at 60 l, fio2 80%, i, and his pulse ox is between 89% HEAD: Normocephalic/atraumatic. EYES: Normal reaction of pupils, equal size. Conjunctiva pink, sclera white. NOSE: Clear with pink turbinates. THROAT: No erythema or exudates. NECK: No masses, no JVD, no thyroid enlargement, no adenopathy. CHEST: No chest wall deformity. Symmetrical expansion. LUNGS: Equal air entry with bilateral crackles CVS: Regular rate and rhythm, normal S1 and S2, no gallops, no murmurs, no rubs ABDOMEN: Soft, nontender. No hepatosplenomegaly, normal bowel sounds, no guarding or rigidity. EXTREMITIES: No clubbing, left leg is quite swollen, and tight, with suspicion of DVT no cyanosis, 2+ pulses and upper and lower extremities. MUSCULOSKELETAL: Muscle strength and tone normal. SPINE: No scoliosis or deformity SKIN: No rashes CENTRAL NERVOUS SYSTEM: Weak but more awake on today's exam on high flow oxygen per Airvo. No focal deficits, tone is normal in all 4 extremities. - Labs CBC & Chem 7: 12/15/20 08:59 12/15/20 07:31 Labs: Abnormal Lab Results - Last 24 Hours (Table) 12/14/20 12/15/20 12/15/20 Range/Units 20:01 07:23 07:31 RBC (4.30-5.90) m/uL Hgb (13.0-17.5) gm/dL Hct (39.0-53.0) % RDW (11.5-15.5) % Plt Count (150-450) k/uL Lymphocytes # (1.0-4.8) k/uL BUN 114 H* (9-20) mg/dL Creatinine 3.14 H (0.66-1.25) mg/dL Glucose 159 H (74-99) mg/dL POC Glucose (mg/dL) 317 H 192 H (75-99) mg/dL Calcium 6.5 L (8.4-10.2) mg/dL Crossmatch 12/15/20 12/15/20 12/15/20 Range/Units 07:31 08:59 10:25 RBC 2.11 L 2.08 L (4.30-5.90) m/uL Hgb 6.9 L* 6.9 L* (13.0-17.5) gm/dL Hct 20.3 L 20.4 L (39.0-53.0) % RDW 18.5 H 18.7 H (11.5-15.5) % Plt Count 31 L 28 L (150-450) k/uL Lymphocytes # 0.3 L 0.3 L (1.0-4.8) k/uL BUN (9-20) mg/dL Creatinine (0.66-1.25) mg/dL Glucose (74-99) mg/dL POC Glucose (mg/dL) (75-99) mg/dL Calcium (8.4-10.2) mg/dL Crossmatch See Detail 12/15/20 Range/Units 11:52 RBC (4.30-5.90) m/uL Hgb (13.0-17.5) gm/dL Hct (39.0-53.0) % RDW (11.5-15.5) % Plt Count (150-450) k/uL Lymphocytes # (1.0-4.8) k/uL BUN (9-20) mg/dL Creatinine (0.66-1.25) mg/dL Glucose (74-99) mg/dL POC Glucose (mg/dL) 222 H (75-99) mg/dL Calcium (8.4-10.2) mg/dL Crossmatch Assessment and Plan Plan: Assessment: #1. acute COVID 19 related pneumonia with secondary shortness of breath and hypoxic respiratory failure the patient's symptoms of generalized weakness and dehydration, currently on 4 L of oxygen by nasal cannula, patient was started on Remdesivir on 11/20/2020, Toci on 11/29/2020. Patient remains on Airvo at 60 L and FiO2 of 55% in addition to 100% nonrebreather mask #2. acute hypoxic respiratory failure, persistent #3. Acute blood loss anemia, related to large retroperitoneal hematoma, status post transfusion with 5 units of packed red blood cells and irradiated platelets #4. Acute urinary tract infection with sepsis, related to enterococcus faecalis, and E. coli #5. Hypothermia possibly related to sepsis, improved #6. Coronary artery disease with previous positive bypass surgery #7. Mild troponin leak, could be related to Covid 19 infection #8. History of AICD placement #9. Hypothyroidism #10. Diabetes mellitus with diabetic retinopathy #11. 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 Gout #13. Anemia of chronic disease #14. Hypothyroidism #15. Acute kidney injury #16. Acute left lower extremity DVT, and patient has a recent history of retroperitoneal bleeding, post IVC filter placement Plan: Continue current medical treatment On today's exam he seems to be more lethargic and less responsive Were told that he turned out PEG tube insertion We'll continue supportive treatment Today's chest x-ray shows no significant change from previous chest x-ray Prognosis is poor We'll continue to follow and supportively treat the patient I performed a history & physical examination of the patient and discussed their management with my nurse practitioner, Iza Mccarthy. I reviewed the nurse practitioner's note and agree with the documented findings and plan of care. Lung sounds are positive for bibasilar crackles. The findings and the impression was discussed with the patient. I attest to the documentation by the nurse practitioner. Time with Patient: Less than 30
--- NOTE | 2020-12-15 16:56 | PN ---
PROGRESS NOTE DATE OF SERVICE: 12/15/2020 REASON FOR FOLLOWUP: Pneumonia and UTI. INTERVAL HISTORY: The patient is currently afebrile. The patient is hemodynamically stable, not on any pressor support. The patient remains to be lethargic and not answering any questions. The patient did have a drop in hemoglobin. Currently getting blood transfusion. No vomiting, diarrhea or any other changes reported by the nursing staff. PHYSICAL EXAMINATION: Blood pressure 139/80 with a pulse of 84, temperature 96.4. He is 90% on high-flow oxygen. General description is an elderly male lying in bed in no distress. Respiratory system: Unlabored breathing, clear to auscultation anteriorly. Heart S1, S2. Regular rate and rhythm. Abdomen soft, no tenderness. LABS: Hemoglobin is 6.8, white count 5.1. BUN of 40, creatinine 3.14. DIAGNOSTIC IMPRESSION AND PLAN: Patient with acute respiratory failure which is multifactorial in this patient initial presentation of Covid-19 infection and concern for possible secondary pneumonia. Patient white count normalized with cefepime and Zyvox to continue to finish a 10 day course of therapy and monitor clinical course closely. Prognosis remains to be guarded. MMODL / IJN: [id number] /
[2020-12-15 17:14] LABS: Glucose,Whole Blood 219 mg/dL (75-99)
--- NOTE | 2020-12-15 19:31 | P.PN ---
Subjective Progress Note Date: 12/15/20 Principal diagnosis: COVIV and Bicytopenia hemoglobin 6.9 Objective - Vital Signs Vital signs: Vital Signs Temp 97.7 F 12/15/20 17:51 Pulse 88 12/15/20 17:51 Resp 16 12/15/20 17:51 BP 148/79 12/15/20 17:51 Pulse Ox 90 L 12/15/20 17:51 Intake & Output 12/15/20 12/15/20 12/16/20 06:59 18:59 06:59 Intake Total 550 Output Total 650 Balance -650 550 Weight 85.2 kg Intake: Oral 240 Blood Product 310 Rc Pheresis 2 As3 Unit 310 [id number] Output: Urine 650 Other: Voiding Method Indwelling Catheter Indwelling Catheter - Exam HIgh FLow Increased effort - Constitutional General appearance: cooperative, no acute distress - EENT Eyes: EOMI ENT: NA/AT - Neck Neck: normal ROM - Respiratory Respiratory: bilateral: diminished - Cardiovascular Rhythm: regular - Gastrointestinal General gastrointestinal: soft - Integumentary Integumentary: normal - Musculoskeletal Musculoskeletal: generalized weakness - Labs CBC & Chem 7: 12/15/20 08:59 12/15/20 07:31 Labs: Abnormal Lab Results - Last 24 Hours (Table) 12/14/20 12/15/20 12/15/20 Range/Units 20:01 07:23 07:31 RBC (4.30-5.90) m/uL Hgb (13.0-17.5) gm/dL Hct (39.0-53.0) % RDW (11.5-15.5) % Plt Count (150-450) k/uL Lymphocytes # (1.0-4.8) k/uL BUN 114 H* (9-20) mg/dL Creatinine 3.14 H (0.66-1.25) mg/dL Glucose 159 H (74-99) mg/dL POC Glucose (mg/dL) 317 H 192 H (75-99) mg/dL Calcium 6.5 L (8.4-10.2) mg/dL Crossmatch 12/15/20 12/15/20 12/15/20 Range/Units 07:31 08:59 10:25 RBC 2.11 L 2.08 L (4.30-5.90) m/uL Hgb 6.9 L* 6.9 L* (13.0-17.5) gm/dL Hct 20.3 L 20.4 L (39.0-53.0) % RDW 18.5 H 18.7 H (11.5-15.5) % Plt Count 31 L 28 L (150-450) k/uL Lymphocytes # 0.3 L 0.3 L (1.0-4.8) k/uL BUN (9-20) mg/dL Creatinine (0.66-1.25) mg/dL Glucose (74-99) mg/dL POC Glucose (mg/dL) (75-99) mg/dL Calcium (8.4-10.2) mg/dL Crossmatch See Detail 12/15/20 12/15/20 Range/Units 11:52 17:12 RBC (4.30-5.90) m/uL Hgb (13.0-17.5) gm/dL Hct (39.0-53.0) % RDW (11.5-15.5) % Plt Count (150-450) k/uL Lymphocytes # (1.0-4.8) k/uL BUN (9-20) mg/dL Creatinine (0.66-1.25) mg/dL Glucose (74-99) mg/dL POC Glucose (mg/dL) 222 H 219 H (75-99) mg/dL Calcium (8.4-10.2) mg/dL Crossmatch Assessment and Plan (1) Thrombocytopenia Current Visit: Yes Status: Acute Priority: High Code(s): D69.6 - THROMBOCYTOPENIA, UNSPECIFIED SNOMED Code(s): 032304242 (2) Acute on chronic renal failure Current Visit: Yes Status: Acute Priority: High Code(s): N17.9 - ACUTE KIDNEY FAILURE, UNSPECIFIED; N18.9 - CHRONIC KIDNEY DISEASE, UNSPECIFIED SNOMED Code(s): 757934339 (3) COVID-19 Current Visit: Yes Status: Acute Code(s): U07.1 - COVID-19 SNOMED Code(s): 779452525 (4) Normocytic normochromic anemia Current Visit: Yes Status: Acute Code(s): D64.9 - ANEMIA, UNSPECIFIED SNOMED Code(s): 13025495 (5) DVT (deep venous thrombosis) Current Visit: Yes Status: Acute Priority: High Code(s): I82.409 - ACUTE EMBOLISM AND THOMBOS UNSP DEEP VN UNSP LOWER EXTREMITY SNOMED Code(s): 858167 003 Plan: Assessment and Recommendations: DVT Left Femoral: Bicytopenia: - Likely Multifactorial: Secondary to bone marrow supression with prolonged illness, assess for DIC, Assess for Bleeding (CT ordered), HIT antibodies in process Moderated Retroperitoneal Bleed; Resolved - CT Abdomen reveal underlying hematoma - Mass effect, etiology of blood loss and/or contributing factor Continue to monitor CBC and Transfuse hemoglobin less than 7 Physician Attest: I have completed full history and physical developed above impression and plan, agree with dictation, dictated as a scribe
--- NOTE | 2020-12-15 20:17 | P.PN ---
Progress Note - Text Progress Note Date: 12/15/20 Chief Complaint: Tired History of presenting complaint: Pleasant 75-year-old patient of Dr. Horta. Chronic stable medical conditions include diabetes, hypothyroid, gout, peripheral neuropathy, diabetic retinopathy, chronic kidney disease, coronary artery disease with a history of bypass and AICD. Patient's is by the bedside who provides most of the history. Patient about 7 days ago on Friday every couple of days before that has started feeling a little bit tired. Motor worse on Friday. Also developed a fever. Decreased appetite diet. Had some diarrhea. Body aches. No loss of smell or taste. Patient did have COVID rapid tested on that was negative. Now becomes short of breath with minimal exertion tired rundown. Patient is tested positive for COVID 19. Initial pulse ox on room air was 98% and then did go down to 94% on 2 L. Admitted with acute bilateral COVID 19 pneumonitis, acute hypoxic respiratory failure, acute myocarditis. Placed on dexamethasone Lovenox. IV Remdesivir. Patient is requiring high flow oxygen. Patient dropped his hemoglobin on the . Receive 2 units of blood. Patient's front of her retroperitoneal bleed. Received a total of 4 units of blood. Left leg DVT-IVC filter placed on December 08. Today: Patient's sensorium is fluctuating. Sometimes a bit more awake. Rather tired. Hardly eating. Has not been able take his oral medications. Hemoglobin 6.9 this morning. 1 unit of blood ordered Review of systems: Could not be obtained Active Medications Acetaminophen (Acetaminophen Tab 325 Mg Tab) 650 mg PO Q6HR PRN PRN Reason: Fever and/ or Pain Last Admin: 12/06/20 20:49 Dose: 650 mg Documented by: Allopurinol (Allopurinol 100 Mg Tab) 100 mg PO W/SUPPER [facility] Last Admin: 12/15/20 16:45 Dose: Not Given Documented by: Calcium Carbonate/Glycine (Calcium Carbonate 500 Mg Chewable) 1,000 mg PO ONCE PRN PRN Reason: Heartburn Last Admin: 12/12/20 11:44 Dose: 1,000 mg Documented by: Darbepoetin Rizwan (Darbepoetin Rizwan 40 Mcg/0.4 Ml Syringe) 40 mcg SQ Q7D [facility] Last Admin: 12/12/20 11:43 Dose: 40 mcg Documented by: Desmopressin Acetate (Desmopressin Acetate 4 Mcg/Ml Vial (Mdv)) 1 mcg SQ DAILY [facility] Last Admin: 12/15/20 08:45 Dose: 1 mcg Documented by: Dexamethasone Sodium Phosphate (Dexamethasone Sod Phosphate 10 Mg/Ml 1 Ml Vial) 6 mg IV DAILY [facility] Last Admin: 12/15/20 08:45 Dose: 6 mg Documented by: Famotidine (Famotidine 20 Mg Tab) 20 mg PO DAILY [facility] Last Admin: 12/15/20 08:34 Dose: Not Given Documented by: Cefepime HCl 2 gm/ Sodium (Chloride) 100 mls @ 25 mls/hr IVPB Q24HR [facility] Last Admin: 12/15/20 08:44 Dose: 25 mls/hr Documented by: Insulin Aspart (Insulin Aspart (Novolog) 100 Unit/Ml Vial) 0 unit SQ ACHS [facility]; Protocol Last Admin: 12/15/20 17:25 Dose: 3 unit Documented by: Insulin Detemir (Insulin Detemir (Levemir) 100 Unit/Ml Syr) 35 unit SQ DAILY@0700 [facility] Last Admin: 12/15/20 08:11 Dose: Not Given Documented by: Insulin Detemir (Insulin Detemir (Levemir) 100 Unit/Ml Syr) 35 unit SQ HS [facility] Last Admin: 12/14/20 20:02 Dose: Not Given Documented by: Levothyroxine Sodium (Levothyroxine Ivp 100 Mcg/5 Ml Vial) 50 mcg IV DAILY [facility] Naloxone HCl (Naloxone 0.4 Mg/Ml 1 Ml Vial) 0.2 mg IV Q2M PRN PRN Reason: Opioid Reversal Pantoprazole Sodium (Pantoprazole 40 Mg/10 Ml Vial) 40 mg IVP BID [facility] Last Admin: 12/15/20 08:45 Dose: 40 mg Documented by: Past medical history to include: Diabetes, hypothyroid, gout, diabetic peripheral neuropathy, diabetic retinopathy, chronic kidney disease stage IV, coronary artery disease with bypass, AICD Social history: No history of smoking or alcohol. . 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 PSYCH: Lethargic tired and unable to assess NEUROLOGICAL: Cranial nerves grossly intact; no facial asymmetry, moving all 4 limbs Rest of exam per pulmonary and nursing INVESTIGATIONS, reviewed in the clinical context: December 15: WBC 5.1 hemoglobin 6.9 platelets 28 potassium 4.4 creatinine 3.14 December 14: WBC 7.2 hemoglobin 7.6 platelets 43 potassium 4.6 bun 112 creatinine 3.1 December 08: Accu-Cheks 59, 63 Ultrasound Doppler lower extremity bilateral: Acute DVT in the left lower extremity with hyperexpanded material filling the lumen and absent color flow begins in the superficial femoral vein and more prominent findings in the mid and distal sebaceous femoral vein. December 07: WBC 20.04 hemoglobin 7.6 platelets 66 potassium 4.7 creatinine 3.2 bun 154 calcium 6.1 phosphorus 8 Computed tomography scan of abdomen and pelvis: Fairly moderate to large size pelvic retroperitoneal hematoma with local mass effect. Mild cortical thinning in both the kidneys. November 21: Potassium 4.8 creatinine 2.7 2-D echocardiogram: EF 50-55% November 20 Potassium 5.1 creatinine 2.85 d-dimer 0.47 CRP 70 WBC 3.2 hemoglobin 9.7 platelets 164 lymphocytes 0.5 sodium 131 potassium 4.8 bun 61 creatinine 3.37 Troponin I 0.073, 0.073, 0.068 albumin 3.2 Urine protein 2+ moderate blood Coronavirus [PCR] detected EKG tracing personally reviewed by me-normal sinus rhythm Chest x-ray film personally reviewed by me-bilateral infiltrates Renal ultrasound-normal Assessment and plan: -Acute bilateral COVID 19 pneumonia. Symptoms started about a week before presentation.-Slow to respond on IV dexamethasone, subcu Lovenox-held, vitamin C vitamin D Pepcid and zinc. November 20 - Remdesivir -Acute hypoxic respiratory failure, secondary to COVID 19 pneumonia: -Slow to respond Advanced to a Airvo/nonrebreather 60/65% -Acute myocarditis secondary to COVID 19 Telemetry. watch for arrhythmias. -Acute kidney injury likely ATN from sepsis from COVID 19, hypertension.-Slow to respond . IV fluids -Chronic kidney disease stage IV secondary to diabetic kidney disease. Creatinine 2.17 August 2020 Follow renal function -AICD On telemetry -Coronary artery disease with prior history of carotid bypass Continue with Coreg, Lipitor, aspirin -Hypothyroid Continue with Synthroid. Change to IV Synthroid -Diabetes mellitus type 2, on oral hypoglycemic, uncontrolled with hyperglycemia Follow Accu-Cheks with sliding scale insulin. Increase Levemir to 28 units at night -Chronic gout Continue with allopurinol -Anemia of chronic kidney disease Follow H&H and continue with erythropoietin -Diabetic retinopathy Follow clinically -Diabetic peripheral neuropathy Follow clinically -Hyponatremia from a relative decrease in solute from decreased appetite- improving Saline IV -Metabolic acidosis due to chronic kidney disease Supplement bicarb -Acute retroperitoneal bleed likely from patient being on Lovenox Lovenox has been on hold. General surgery -weight and watch -Acute severe blood loss anemia from retroperitoneal bleed received a total of 4 units of blood . 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 Patient not a candidate for anticoagulation. IVC filter, cook/la nena -Hyperphosphatemia due to acute on chronic kidney disease -Thrombocytopenia likely from underlying infection -CODE STATUS DO NOT RESUSCITATE Patient is barely able to take any medications. Supplemental medications to BE discontinued. Change Synthroid to IV. DC Coreg also. Use Catapres patch if needed. Spoke to patient's over the phone. She understands prognosis is guarded. Total time spent today about 40 minutes with over 25 minutes of discussion. Also discussed at length with the patient's nurse.
[2020-12-15 20:47] LABS: Glucose,Whole Blood 230 mg/dL (75-99)
[2020-12-15] MEDS: LEVOTHYROXINE IVP 100 MCG/5 ML VIAL IV SCH (21:42)
[2020-12-16 07:28] LABS: Glucose,Whole Blood 126 mg/dL (75-99)
[2020-12-16 07:37] LABS: Anisocytosis Slight; HCT 22.7 % (39.0-53.0); HGB 7.8 gm/dL (13.0-17.5); MCH 32.2 pg (25.0-35.0); MCHC 34.6 g/dL (31.0-37.0); Poikilocytosis Slight; RBC 2.44 m/uL (4.30-5.90); RDW 18.3 % (11.5-15.5); WBC 4.4 k/uL (3.8-10.6)
[2020-12-16 07:49] LABS: Platelet Count 22 k/uL (150-450)
[2020-12-16] MEDS: INSULIN DETEMIR (LEVEMIR) 100 UNIT/ML SYR SQ SCH ×2 (08:31→20:50)
[2020-12-16] MEDS: INSULIN ASPART (NovoLOG) 100 UNIT/ML VIAL SQ SCH ×4 (08:31→20:43)
[2020-12-16] MEDS: FAMOTIDINE 20 MG TAB PO SCH (08:32)
[2020-12-16] MEDS: DESMOPRESSIN ACETATE 4 MCG/ML VIAL (MDV) SQ SCH (09:18)
[2020-12-16] MEDS: LEVOTHYROXINE IVP 100 MCG/5 ML VIAL IV SCH (09:19)
[2020-12-16] MEDS: PANTOPRAZOLE 40 MG/10 ML VIAL IVP SCH ×2 (09:19→20:43)
[2020-12-16] MEDS: DEXAMETHASONE SOD PHOSPHATE 10 MG/ML 1 ML VIAL IV SCH (09:19)
[2020-12-16] MEDS: CEFEPIME 2 GM in SODIUM CHLORIDE 0.9% 100 ML IVPB SCH (09:19)
[2020-12-16] MEDS ORDERED: FUROSEMIDE 10 MG/ML 2 ML VIAL IV STA (11:14)
--- NOTE | 2020-12-16 11:16 | P.PN ---
Subjective Patient is seen in follow for acute kidney injury on chronic kidney disease. Creatinine 3.14 as of yesterday. Hemoglobin 7.8 today. Status post multiple blood transfusions this admission. Nonoliguric. On airvo. Sleeping. Not a reliable historian. Vital signs stable. General: The patient appeared well nourished and normally developed. HEENT: On airvo. LUNGS: Breath sounds decreased. HEART: Rate and Rhythm are regular. ABDOMEN: Soft, nondistended. EXTREMITITES: 1+ edema. Objective - Vital Signs Vital signs: Vital Signs Temp 97.2 F L 12/16/20 10:00 Pulse 86 12/16/20 10:00 Resp 22 12/16/20 10:00 BP 105/64 12/16/20 10:00 Pulse Ox 92 L 12/16/20 10:00 Intake & Output 12/15/20 12/16/20 12/16/20 18:59 06:59 18:59 Intake Total 550 60 Output Total 1350 Balance 550 -1290 Weight 85.2 kg 98.5 kg Intake: Oral 240 60 Blood Product 310 Rc Pheresis 2 As3 Unit 310 [id number] Output: Urine 1350 Other: Voiding Method Indwelling Catheter Indwelling Catheter Indwelling Catheter # Bowel Movements 1 - Labs CBC & Chem 7: 12/16/20 06:59 12/15/20 07:31 Labs: Abnormal Lab Results - Last 24 Hours (Table) 12/15/20 12/15/20 12/15/20 Range/Units 08:59 10:25 11:52 RBC (4.30-5.90) m/uL Hgb 6.9 L* (13.0-17.5) gm/dL Hct (39.0-53.0) % RDW (11.5-15.5) % Plt Count (150-450) k/uL POC Glucose (mg/dL) 222 H (75-99) mg/dL Crossmatch See Detail 12/15/20 12/15/20 12/16/20 Range/Units 17:12 20:43 06:59 RBC 2.44 L (4.30-5.90) m/uL Hgb 7.8 L (13.0-17.5) gm/dL Hct 22.7 L (39.0-53.0) % RDW 18.3 H (11.5-15.5) % Plt Count 22 L (150-450) k/uL POC Glucose (mg/dL) 219 H 230 H (75-99) mg/dL Crossmatch 12/16/20 Range/Units 07:26 RBC (4.30-5.90) m/uL Hgb (13.0-17.5) gm/dL Hct (39.0-53.0) % RDW (11.5-15.5) % Plt Count (150-450) k/uL POC Glucose (mg/dL) 126 H (75-99) mg/dL Crossmatch Assessment and Plan Plan: Assessment: 1. Acute kidney injury secondary to ATN secondary to Covid 19 infection, hypotension and acute blood loss anemia. Creatinine 3.14 . No hydronephrosis noted on kidney ultrasound. Elevated BUN due to steroids, chronic kidney disease and retroperitoneal bleed. 2. 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 Creatinine 2.0 in August 2020. 3. Covid 19 infection. Maintained on steroids. Currently on airvo. 4. Diabetes mellitus. 5. Metabolic acidosis secondary to acute kidney injury and lactic acidosis. Improved. 6. Hyponatremia secondary to acute kidney injury. Possible SIADH from respiratory infection. Better. 7. Acute blood loss anemia. Has a retroperitoneal hematoma. Evaluated by surgery. Maintained on Aranesp. Status post blood transfusions this admission. Also received IV DDAVP. 8. Hypocalcemia secondary to acute kidney injury. Corrected calcium near 7.7. 9. Generalized debility. 10. Left lower extremity DVT status post Ketty filter placement. 11. Lower extremity edema. Plan: Wean FiO2. Lasix 20 mg IV once today. Continue to monitor renal function and urine output. Continue to assess daily for need for renal replacement therapy. Overall prognosis guarded.
[2020-12-16] MEDS ORDERED: CALCIUM GLUCONATE 1 GM in SODIUM CHLORIDE 0.9% 100 ML IVPB ONE (11:30)
[2020-12-16 11:48] LABS: Glucose,Whole Blood 162 mg/dL (75-99)
--- NOTE | 2020-12-16 13:31 | P.PN ---
Subjective Progress Note Date: 12/16/20 Principal diagnosis: Acute COVID-19 pneumonia 75-year-old male patient, started having symptoms approximately a week ago when he started feeling a bit tired and fatigued. He subsequently developed fever and diminished appetite and some diarrhea. The patient tested positive for COVID 19 infection 4 days ago and this was again confirmed on 11/19/2020. The patient came into the emergency with weakness and shortness of breath. The patient is currently on 2 L of oxygen by nasal cannula. He is known to have CAD, previous bypass, aortic, chronic disease, diabetes mellitus and diabetic retinopathy and neuropathy and hypothyroidism and gout. Lactate was 0.7, there d-dimer was 0.6, white cell count was at 3.2 with a lymphopenia, creatinine was at 3.37 with a mean of 61. He is also on multivitamins. Chest x-ray showing diffuse bilateral pulmonary infiltrates. On today's evaluation of 4 021 the patient is currently on oxygen at 4 L per minute. The patient is quite comfortable. Pulse ox is around 95% and FiO2 can be obviously weaned off. The patient is being seen for a follow-up. The patient is currently being treated with Decadron 6 mg IV every 24 hours. The patient is also on Lovenox 40 mg subcu daily and the patient is also on Remdesivir day #2. No follow-up chest x-rays available from today. The rest of the labs are showing chronic kidney disease with a creatinine of 2.7. The patient has chronic metabolic acidosis which is of a non-anion gap type. On 11/22/2020 patient seen in follow-up. Is comfortable, still desat easily, feels tired, but no acute distress, today's labs have been reviewed, d-dimer 0.69, CRP is 35.6, no LDH. Has not had a chest x-ray, he is currently on 7 L, his pulse ox is 89%, no fever, remains on Remdesivir, today is day 3 of treatment. On 11/23/2020 patient is pretty stable, he remains on 5 L of oxygen, her pulse ox 89-90%, he is breathing comfortably, no worsening dyspnea, his 0.9, saline at 60 per hour, patient completed Remdesivir treatment, he remains on steroids, and prophylactic Lovenox. No worsening dyspnea, today's labs have been reviewed, d- dimer is 1.90, renal profile is slightly improved from yesterday, patient continues on IV fluids, no nausea vomiting or diarrhea, CRP is trending down, LDH with today is pending. On 11/25/2000 patient seen in follow-up on medical surgical floor, he is sitting up in the chair, appears to be breathing comfortably although his oxygen requirements have increased, and is currently on 15 L per high flow nasal cannula up from 12 L from yesterday, he denies any worsening dyspnea, lung sounds reveal diffuse bilateral crackles, no chest discomfort, no signs of any respiratory distress. No cough, no wheezing, today's chest x-ray shows bilateral mid to lower lung increased opacities, findings consistent with COVID- 19 pneumonia, the findings are stable in appearance. Follow-up inflammatory markers showed d-dimer of 19.16, LDH is up to 2028, CRP is 2.4. Patient has completed his Remdesivir course, she remains on daily dose of Decadron 6 mg, and Lovenox 30 mg daily, his renal function appears to be relatively stable, his bun is 64, and creatinine is 2.12 On 11/26/2020 patient seen in follow-up on medical surgical floor, he sitting up in the chair, he is breathing comfortably, he is currently down to 13 L, and his pulse ox is 90-94%, his been afebrile, overall she looks stable, he does not appear to be in any acute distress, he is a d-dimer has trended up, and on today's labs it is up to 30.3, and his Lovenox dose will be adjusted. Today's inflammatory markers are improving. He remains on daily dose IV Decadron 6 mg daily, Lovenox, multivitamins, and his IV fluids are infusing at a rate of 60 ML per hour, no new chest x-ray today, his kidney function shows slight improvement On 11/27/2000 patient seen in follow-up on medical surgical floor, he remains on high flow oxygen 15 L, and the nonrebreather mask, he does desat when he removes his nonrebreather mask down to 86% however he denies any dyspnea, he does not feel stressed at all, and looks very comfortable, he sitting up in the recliner, awake and alert, oriented 3, he is afebrile, hemodynamically has been stable, he has no specific complaints, and his today's chest x-ray shows cardiomegaly and low lung volumes with bilateral mid to lower lung reticular and confluent opacities consistent with COVID-19 pneumonia with no change from previousexam. Today's labs have been reviewed, white blood cell count is 5.45, hemoglobin is 9.3, no d-dimer today, but yesterday's d-dimer was quite elevated at 30.3, and his Lovenox dose was adjusted and increased to 40 mg twice a day, his electrolyte panel shows CO2 of 28.1, but prostate electrolytes are within normal limits, B1 is 84, creatinine is 2.2, his LDH is down to 687, improving, his CRP is 1.2 on today's labs. He continues on Decadron 6 mg daily, he is on Lovenox 40 mg twice a day, and he is receiving IV hydration at 60 ML per hour, nephrology is following On 11/28/2020 patient seen in follow-up on medical surgical floor, he is resting comfortably in bed, he is currently on 15 L high flow and 100% nonrebreather, he looks quite comfortable, he denies any shortness of breath, minimal cough, he is breathing comfortably, his pro-calcitonin level was low, his inflammatory markers were improving, his d-dimer was elevated on 11/26/2020 patient is on 40 mg of Lovenox twice daily, Lasix is at 40 mg every 12 hours patient is in negative fluid balance. No new chest x-ray today On 11/29/2000 patient seen in follow-up on medical surgical floor, is currently on 15 L per high flow nasal cannula, and 100 nonrebreather mask, and he is satting about 93%, he does not feel short of breath, he seems to be breathing very comfortably, he is afebrile, hemodynamically stable, his chest x-ray today shows low lung volumes with bilateral mid to lower lung reticular and confluent opacities consistent with COVID-19 pneumonia. Findings are similar to his previous chest x-ray, lower extremity Dopplers were completed and he was negative for DVT. His d-dimer is trending down, and is down to 16.0. The rest of his lab work has been reviewed, showing white blood cell count of 8.7, hemoglobin of 10.5, sodium is 136, potassium is 4.5, chloride is 98, BUN of 108, and creatinine is 3.2, his calcitonin level was negative at 0.10, his inflammatory markers were improving since admission. No nausea vomiting or diarrhea, and patient continues on daily dose of IV Decadron 6 mg, continues on Lovenox 40 mg twice daily, she was given a dose of Lasix yesterday and he was started on maintenance dose of IV Lasix On 11/30/2020 patient seen in follow-up on medical surgical floor, he is resting comfortably in bed, currently off the nonrebreather mask, on 15 L per high flow nasal cannula with his pulse ox is 90-91%, he looks very comfortable, breathing comfortably, no worsening dyspnea. Cooperative chest discomfort, no cough. No fever or chills. No acute events overnight, patient did receive 1 dose of Toci yesterday 720 mg, he remains on Lovenox 40 mg twice a day, and daily dose Decadron, today's labs have been reviewed, showing white blood cell, 10.1, hemoglobin of 10.3, d-dimer is trending down, down to 11.4, electrolytes are within normal limits, renal profile shows some improvement, pro-Joshua was negative, inflammatory markers are trending down, patient denies any specific complaints On 12/01/2020 patient seen in follow-up on medical surgical floor, is currently on 15 L per high flow nasal cannula and nonrebreather mask, and his pulse ox is 100%, he is breathing very comfortably, denies any cough, denies any chest pain, has had no fever or chills, no nausea vomiting diarrhea, no abdominal pain, no new chest x-rays, his labs have been reviewed, d-dimer today is 12.5, electrolytes are unremarkable, his renal profile slightly improved, his BUN is 113, and creatinine is 2.59. On 12/02/2020 patient seen in follow-up on medical surgical floor, he is currently back on 11 L of oxygen resting comfortably in bed, in comfortably, in his pulse ox was 99%, we dropped the FiO2 down to 8 L, and we instructed the nursing staff to continue weaning it to maintain O2 saturations at or above 90%, patient has no specific complaints, no cough, no chest discomfort, no fever, no chills no headaches, no nausea vomiting or diarrhea. Renal function continues to be impaired, and nephrology is following, his BUN is 1:30, and creatinine is 2.70, electrolytes were unremarkable on today's labs. No new chest x-ray today. Patient remains on IV Decadron 6 mg, and Lovenox is currently at 40 mg twice daily. Follow-up d-dimer is pending for today. The patient is seen today 12/03/2020 follow-up on the regular medical floor. He is currently resting fairly comfortably in bed. They did call and A team on the patient earlier this morning. He had some hypotension. He was found to have a hemoglobin of 6.8 down from 10.3. No active GI bleeding noted. He was given 1 L fluid resuscitation and is receiving 2 units of packed red blood cells. Blood pressure is currently stable. He is still requiring oxygen at 10 L high flow nasal cannula. D-dimer 9.00. White count 22.1. Platelets 106. Sodium 134. Potassium 4.8. BUN 136. Creatinine 3.03. Glucose 149. LDH 1654. C-reactive protein 0.9. He remains on Lovenox, dexamethasone, vitamin supplements. The patient is seen today 12/09/2020 in follow-up on the regular medical floor. He is still on AirVo high flow oxygen at 60 L and 70% FiO2 on with a non rebreather mask. He has been getting progressively weak and less responsive. Hemoglobin today 6.8. He is status post 4 units of packed red blood cells this admission. He did undergo a IVC filter placement yesterday. Urine culture was positive for E. coli and Enterococcus faecalis. Blood cultures revealing no growth. White count 19.8. Platelets 69,000. Sodium 145. Potassium 4.0. BUN 125. Creatinine 3.4. Blood glucose 198. Calcium 5.8. AST 38. ALT 45. He remains on cefepime and Zyvox. He is continued on Decadron, vitamin supplements. The patient is seen today 12/16/2020 in follow-up on the regular medical floor. He is arousable, but drifts back off to sleep easily. He is maintained on the AirVo high flow oxygen device at 60% and 60 L. Currently at 80% O2 saturation. He is currently afebrile. Hemodynamically stable. He has received 6 units packed red blood cells this admission. Platelets times one. Current hemoglobin 7.8. Platelet count 22,000. Urine culture had revealed E. coli and Enterococcus faecalis. Blood cultures had revealed no growth. White count 4.4. Remains on cefepime. Continued on Decadron. He received a dose of Lasix 20 mg IVP 1 this morning. Objective - Vital Signs Vital signs: Vital Signs Temp 97.2 F L 12/16/20 10:00 Pulse 86 12/16/20 10:00 Resp 22 12/16/20 10:00 BP 105/64 12/16/20 10:00 Pulse Ox 89 L 12/16/20 12:19 Intake & Output 12/15/20 12/16/20 12/16/20 18:59 06:59 18:59 Intake Total 550 60 60 Output Total 1350 Balance 550 -1290 60 Weight 85.2 kg 98.5 kg 98.5 kg Intake: Oral 240 60 60 Blood Product 310 Rc Pheresis 2 As3 Unit 310 [id number] Output: Urine 1350 Other: Voiding Method Indwelling Catheter Indwelling Catheter Indwelling Catheter # Bowel Movements 1 - Exam GENERAL EXAM: Arousable, pale, weak 75-year-old gentleman, on AirVo at 60 L and 60% FiO2, fairly comfortable in no apparent distress. HEAD: Normocephalic. EYES: Normal reaction of pupils, equal size. NOSE: Clear with pink turbinates. THROAT: No erythema or exudates. NECK: No masses, no JVD. CHEST: No chest wall deformity. LUNGS: Equal air entry with crackles in the bilateral posterior bases. CVS: S1 and S2 normal with no audible murmur, regular rhythm. ABDOMEN: No hepatosplenomegaly, normal bowel sounds, no guarding or rigidity. SPINE: No scoliosis or deformity SKIN: No rashes CENTRAL NERVOUS SYSTEM: No focal deficits, tone is normal in all 4 extremities. EXTREMITIES: There is no peripheral edema. No clubbing, no cyanosis. Peripheral pulses are intact. - Labs CBC & Chem 7: 12/16/20 06:59 12/15/20 07:31 Labs: Abnormal Lab Results - Last 24 Hours (Table) 12/15/20 12/15/20 12/15/20 Range/Units 10:25 17:12 20:43 RBC (4.30-5.90) m/uL Hgb (13.0-17.5) gm/dL Hct (39.0-53.0) % RDW (11.5-15.5) % Plt Count (150-450) k/uL POC Glucose (mg/dL) 219 H 230 H (75-99) mg/dL Crossmatch See Detail 12/16/20 12/16/20 12/16/20 Range/Units 06:59 07:26 11:43 RBC 2.44 L (4.30-5.90) m/uL Hgb 7.8 L (13.0-17.5) gm/dL Hct 22.7 L (39.0-53.0) % RDW 18.3 H (11.5-15.5) % Plt Count 22 L (150-450) k/uL POC Glucose (mg/dL) 126 H 162 H (75-99) mg/dL Crossmatch Assessment and Plan Assessment: 1 Acute COVID 19 related pneumonia with secondary shortness of breath and hypoxic respiratory failure the patient's symptoms of generalized weakness and dehydration, currently on AirVo high flow oxygen at 60 L and 60% FiO2, patient was started on Remdesivir on 11/20/2020, Toci on 11/29/2020 2 Acute hypoxic respiratory failure currently on AirVo at 60 L and 60% FiO2 3 Acute anemia with a current hemoglobin of 7.8. 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 Pacheco Hemoglobin 7.8 and today status post 6 units packed red blood cells this admission He did have a IVC filter placed Overall prognosis is quite poor DO NOT RESUSCITATE/DO NOT INTUBATE CODE STATUS Titrate the FiO2 as tolerated We will continue to follow
--- NOTE | 2020-12-16 13:55 | P.PN ---
Progress Note - Text Progress Note Date: 12/16/20 The patient's resting in his room. He is currently asleep with a CPAP machine. Abdomen soft. We will remain on standby for possible gastrostomy tube placement.
--- NOTE | 2020-12-16 15:58 | P.PN ---
Progress Note - Text Progress Note Date: 12/16/20 Chief Complaint: Tired History of presenting complaint: Pleasant 75-year-old patient of Dr. Horta. Chronic stable medical conditions include diabetes, hypothyroid, gout, peripheral neuropathy, diabetic retinopathy, chronic kidney disease, coronary artery disease with a history of bypass and AICD. Patient's is by the bedside who provides most of the history. Patient about 7 days ago on Friday every couple of days before that has started feeling a little bit tired. Motor worse on Friday. Also developed a fever. Decreased appetite diet. Had some diarrhea. Body aches. No loss of smell or taste. Patient did have COVID rapid tested on that was negative. Now becomes short of breath with minimal exertion tired rundown. Patient is tested positive for COVID 19. Initial pulse ox on room air was 98% and then did go down to 94% on 2 L. Admitted with acute bilateral COVID 19 pneumonitis, acute hypoxic respiratory failure, acute myocarditis. Placed on dexamethasone Lovenox. IV Remdesivir. Patient is requiring high flow oxygen. Patient dropped his hemoglobin on the . Receive 5 units of blood. Developed retroperitoneal bleed. Left leg DVT-IVC filter placed on December 08. Patient gradually has become worse. short periods of improvement. I have be speaking to the , on a regular basis. She understands prognosis not good. Today: Rather lethargic. Not communicating. Remains on high flow interval. Review of systems: Could not be obtained Active Medications Acetaminophen (Acetaminophen Tab 325 Mg Tab) 650 mg PO Q6HR PRN PRN Reason: Fever and/ or Pain Last Admin: 12/06/20 20:49 Dose: 650 mg Documented by: Allopurinol (Allopurinol 100 Mg Tab) 100 mg PO W/SUPPER [facility] Last Admin: 12/15/20 16:45 Dose: Not Given Documented by: Calcium Carbonate/Glycine (Calcium Carbonate 500 Mg Chewable) 1,000 mg PO ONCE PRN PRN Reason: Heartburn Last Admin: 12/12/20 11:44 Dose: 1,000 mg Documented by: Darbepoetin Rizwan (Darbepoetin Rizwan 40 Mcg/0.4 Ml Syringe) 40 mcg SQ Q7D [facility] Last Admin: 12/12/20 11:43 Dose: 40 mcg Documented by: Desmopressin Acetate (Desmopressin Acetate 4 Mcg/Ml Vial (Mdv)) 1 mcg SQ DAILY [facility] Last Admin: 12/16/20 09:18 Dose: 1 mcg Documented by: Dexamethasone Sodium Phosphate (Dexamethasone Sod Phosphate 10 Mg/Ml 1 Ml Vial) 6 mg IV DAILY [facility] Last Admin: 12/16/20 09:19 Dose: 6 mg Documented by: Famotidine (Famotidine 20 Mg Tab) 20 mg PO DAILY [facility] Last Admin: 12/16/20 08:32 Dose: Not Given Documented by: Cefepime HCl 2 gm/ Sodium (Chloride) 100 mls @ 25 mls/hr IVPB Q24HR [facility] Last Admin: 12/16/20 09:19 Dose: 25 mls/hr Documented by: Insulin Aspart (Insulin Aspart (Novolog) 100 Unit/Ml Vial) 0 unit SQ ACHS [facility]; Protocol Last Admin: 12/16/20 12:14 Dose: Not Given Documented by: Insulin Detemir (Insulin Detemir (Levemir) 100 Unit/Ml Syr) 35 unit SQ DAILY@0700 [facility] Last Admin: 12/16/20 08:31 Dose: Not Given Documented by: Insulin Detemir (Insulin Detemir (Levemir) 100 Unit/Ml Syr) 35 unit SQ HS [facility] Last Admin: 12/15/20 21:44 Dose: Not Given Documented by: Levothyroxine Sodium (Levothyroxine Ivp 100 Mcg/5 Ml Vial) 50 mcg IV DAILY [facility] Last Admin: 12/16/20 09:19 Dose: 50 mcg Documented by: Naloxone HCl (Naloxone 0.4 Mg/Ml 1 Ml Vial) 0.2 mg IV Q2M PRN PRN Reason: Opioid Reversal Pantoprazole Sodium (Pantoprazole 40 Mg/10 Ml Vial) 40 mg IVP BID [facility] Last Admin: 12/16/20 09:19 Dose: 40 mg Documented by: Past medical history to include: Diabetes, hypothyroid, gout, diabetic peripheral neuropathy, diabetic retinopathy, chronic kidney disease stage IV, coronary artery disease with bypass, AICD Social history: No history of smoking or alcohol. . 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 PSYCH: Lethargic tired and unable to assess NEUROLOGICAL: Cranial nerves grossly intact; no facial asymmetry, moving all 4 limbs Rest of exam per pulmonary and nursing INVESTIGATIONS, reviewed in the clinical context: Meatus: Hemoglobin 7.8 December 7: WBC 5.1 hemoglobin 6.9 platelets 28 potassium 4.4 creatinine 3.14 December 6: WBC 7.2 hemoglobin 7.6 platelets 43 potassium 4.6 bun 112 creatinine 3.1 December 08: Accu-Cheks 59, 63 Ultrasound Doppler lower extremity bilateral: Acute DVT in the left lower extremity with hyperexpanded material filling the lumen and absent color flow begins in the superficial femoral vein and more prominent findings in the mid and distal sebaceous femoral vein. December 07: WBC 20.04 hemoglobin 7.6 platelets 66 potassium 4.7 creatinine 3.2 bun 154 calcium 6.1 phosphorus 8 Computed tomography scan of abdomen and pelvis: Fairly moderate to large size pelvic retroperitoneal hematoma with local mass effect. Mild cortical thinning in both the kidneys. November 21: Potassium 4.8 creatinine 2.7 2-D echocardiogram: EF 50-55% November 20 Potassium 5.1 creatinine 2.85 d-dimer 0.47 CRP 70 WBC 3.2 hemoglobin 9.7 platelets 164 lymphocytes 0.5 sodium 131 potassium 4.8 bun 61 creatinine 3.37 Troponin I 0.073, 0.073, 0.068 albumin 3.2 Urine protein 2+ moderate blood Coronavirus [PCR] detected EKG tracing personally reviewed by me-normal sinus rhythm Chest x-ray film personally reviewed by me-bilateral infiltrates Renal ultrasound-normal Assessment and plan: -Acute bilateral COVID 19 pneumonia. Symptoms started about a week before presentation.-Slow to respond on IV dexamethasone, subcu Lovenox-held, vitamin C vitamin D Pepcid and zinc. November 20 - Remdesivir -Acute hypoxic respiratory failure, secondary to COVID 19 pneumonia: -Slow to respond Remains on Airvo/nonrebreather 60/65% -Acute myocarditis secondary to COVID 19 Telemetry. watch for arrhythmias. -Acute kidney injury likely ATN from sepsis from COVID 19, hypertension.-Slow to respond . IV fluids -Chronic kidney disease stage IV secondary to diabetic kidney disease. Creatinine 2.17 August 2020 Follow renal function -AICD On telemetry -Coronary artery disease with prior history of carotid bypass Continue with Coreg, Lipitor, aspirin -Hypothyroid Continue with Synthroid. Change to IV Synthroid -Diabetes mellitus type 2, on oral hypoglycemic, uncontrolled with hyperglycemia Follow Accu-Cheks with sliding scale insulin. Increase Levemir to 28 units at night -Chronic gout Continue with allopurinol -Anemia of chronic kidney disease Follow H&H and continue with erythropoietin -Diabetic retinopathy Follow clinically -Diabetic peripheral neuropathy Follow clinically -Hyponatremia from a relative decrease in solute from decreased appetite- improving Saline IV -Metabolic acidosis due to chronic kidney disease Supplement bicarb -Acute retroperitoneal bleed likely from patient being on Lovenox Lovenox has been on hold. General surgery -weight and watch -Acute severe blood loss anemia from retroperitoneal bleed received a total of 4 units of blood . 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 Patient not a candidate for anticoagulation. IVC filter, cook/la nena -Hyperphosphatemia due to acute on chronic kidney disease -Thrombocytopenia likely from underlying infection -Acute metabolic and hypoxic encephalopathy-slow to respond -CODE STATUS DO NOT RESUSCITATE Prognosis not good. Continue supportive care. Patient's has been calling in checking.
[2020-12-16 17:11] LABS: Glucose,Whole Blood 215 mg/dL (75-99)
[2020-12-16] MEDS: allopurinoL 100 MG TAB PO SCH (17:21)
[2020-12-16 20:26] LABS: Glucose,Whole Blood 203 mg/dL (75-99)
--- NOTE | 2020-12-16 22:05 | PN ---
PROGRESS NOTE DATE OF SERVICE: 12/16/2020 REASON FOR FOLLOWUP: Pneumonia and UTI. INTERVAL HISTORY: Patient is currently afebrile. The patient remains to be lethargic and unable to provide any history. No vomiting, diarrhea or any other changes reported by the nursing staff. The patient is currently on nasal cannula oxygen and no pressor support. PHYSICAL EXAMINATION: Blood pressure is 125/77 with a pulse of 100. Temperature 98.1. He is 98% on 75% FiO2. General description is an elderly male lying in bed in no distress. Respiratory system: Unlabored breathing. Clear to auscultation anteriorly. Heart S1, S2. Regular rate and rhythm. ABDOMEN: Soft, no tenderness. LABS: Hemoglobin is 7.1, white count 4.4. DIAGNOSTIC IMPRESSION AND PLAN: 1. Patient with initial admission to the hospital with COVID-19 infection, subsequently possible component of sepsis and bacterial pneumonia. The patient clinically responded to cefazolin and Zyvox to continue finish course of therapy. 2. Urinary tract infection, urine with E coli, Enterococcus, covered with current antibiotics. 3. Prognosis remains to be guarded. MMODL / IJN: [id number] / JASWANT
[2020-12-17 07:08] LABS: Glucose,Whole Blood 165 mg/dL (75-99)
--- NOTE | 2020-12-17 07:11 | P.PN ---
Subjective Progress Note Date: 12/16/20 Principal diagnosis: 1. COVID pneumonia 2. LE DVT 3. Bicytopenia Awaiting am labs. Objective - Vital Signs Vital signs: Vital Signs Temp 97.4 F L 12/16/20 06:30 Pulse 74 12/16/20 06:01 Resp 15 12/16/20 04:45 BP 114/63 12/16/20 06:01 Pulse Ox 93 L 12/16/20 04:45 Intake & Output 12/15/20 12/16/20 12/16/20 18:59 06:59 18:59 Intake Total 550 60 Output Total 1350 Balance 550 -1290 Weight 85.2 kg 98.5 kg Intake: Oral 240 60 Blood Product 310 Rc Pheresis 2 As3 Unit 310 [id number] Output: Urine 1350 Other: Voiding Method Indwelling Catheter Indwelling Catheter # Bowel Movements 1 - Exam Due to concerns of COVID-19 detection/exposure, in an effort to limit healthcare provider exposure and transmission, parts of the encounter may have been obtained through chart review, family members, telephone/video visits, and/or discussion with primary team/nursing and ancillary staff. - Labs CBC & Chem 7: 12/16/20 06:59 12/15/20 07:31 Labs: Abnormal Lab Results - Last 24 Hours (Table) 12/15/20 12/15/20 12/15/20 Range/Units 07:31 07:31 08:59 RBC 2.11 L 2.08 L (4.30-5.90) m/uL Hgb 6.9 L* 6.9 L* (13.0-17.5) gm/dL Hct 20.3 L 20.4 L (39.0-53.0) % RDW 18.5 H 18.7 H (11.5-15.5) % Plt Count 31 L 28 L (150-450) k/uL Lymphocytes # 0.3 L 0.3 L (1.0-4.8) k/uL BUN 114 H* (9-20) mg/dL Creatinine 3.14 H (0.66-1.25) mg/dL Glucose 159 H (74-99) mg/dL POC Glucose (mg/dL) (75-99) mg/dL Calcium 6.5 L (8.4-10.2) mg/dL Crossmatch 12/15/20 12/15/20 12/15/20 Range/Units 10:25 11:52 17:12 RBC (4.30-5.90) m/uL Hgb (13.0-17.5) gm/dL Hct (39.0-53.0) % RDW (11.5-15.5) % Plt Count (150-450) k/uL Lymphocytes # (1.0-4.8) k/uL BUN (9-20) mg/dL Creatinine (0.66-1.25) mg/dL Glucose (74-99) mg/dL POC Glucose (mg/dL) 222 H 219 H (75-99) mg/dL Calcium (8.4-10.2) mg/dL Crossmatch See Detail 12/15/20 12/16/20 Range/Units 20:43 07:26 RBC (4.30-5.90) m/uL Hgb (13.0-17.5) gm/dL Hct (39.0-53.0) % RDW (11.5-15.5) % Plt Count (150-450) k/uL Lymphocytes # (1.0-4.8) k/uL BUN (9-20) mg/dL Creatinine (0.66-1.25) mg/dL Glucose (74-99) mg/dL POC Glucose (mg/dL) 230 H 126 H (75-99) mg/dL Calcium (8.4-10.2) mg/dL Crossmatch Assessment and Plan Assessment: 1. COVID pneumonia 2. DVT Left Femoral 3. Bicytopenia, anemia and thrombocytopenia 4. Respiratory failure requiring high flow oxygen due to COVID 5. Retroperitoneal bleed Plan: Mr. Pena is a 75 yo male who is here for COVID pneumonia, course complicated by femoral vein DVT due to hypercoagulability from COVID. He was anticoagulated and developed acute drop in Hgb and plt, found to have retroperitoneal bleed. Hold anticoagulation due to bleeding. Supportive transfusions. Awaiting CBC from today. COVID management as per primary/pulm/ID teams. Due to concerns of COVID-19 detection/exposure, in an effort to limit healthcare provider exposure and transmission, parts of the encounter may have been obtained through chart review, family members, telephone/video visits, and/or discussion with primary team/nursing and ancillary staff.
--- NOTE | 2020-12-17 07:12 | P.PN ---
Subjective Progress Note Date: 12/17/20 Principal diagnosis: 1. COVID pneumonia 2. LE DVT 3. Bicytopenia Awaiting am labs. Yesterday with improved Hgb 7's. Objective - Vital Signs Vital signs: Vital Signs Temp 97.5 F L 12/17/20 05:57 Pulse 104 H 12/17/20 05:57 Resp 17 12/17/20 05:57 BP 112/58 12/17/20 05:57 Pulse Ox 96 12/17/20 05:57 Intake & Output 12/16/20 12/17/20 12/17/20 18:59 06:59 18:59 Intake Total 60 Output Total 1000 Balance -940 Weight 98.5 kg 98.6 kg Intake: Oral 60 Output: Urine 1000 Other: Voiding Method Indwelling Catheter Indwelling Catheter # Voids 1 - Exam Due to concerns of COVID-19 detection/exposure, in an effort to limit healthcare provider exposure and transmission, parts of the encounter may have been obtained through chart review, family members, telephone/video visits, and/or discussion with primary team/nursing and ancillary staff. - Labs CBC & Chem 7: 12/16/20 06:59 12/15/20 07:31 Labs: Abnormal Lab Results - Last 24 Hours (Table) 12/16/20 12/16/20 12/16/20 Range/Units 06:59 07:26 11:43 RBC 2.44 L (4.30-5.90) m/uL Hgb 7.8 L (13.0-17.5) gm/dL Hct 22.7 L (39.0-53.0) % RDW 18.3 H (11.5-15.5) % Plt Count 22 L (150-450) k/uL POC Glucose (mg/dL) 126 H 162 H (75-99) mg/dL 12/16/20 12/16/20 12/17/20 Range/Units 17:01 20:24 07:07 RBC (4.30-5.90) m/uL Hgb (13.0-17.5) gm/dL Hct (39.0-53.0) % RDW (11.5-15.5) % Plt Count (150-450) k/uL POC Glucose (mg/dL) 215 H 203 H 165 H (75-99) mg/dL Assessment and Plan Assessment: 1. COVID pneumonia 2. DVT Left Femoral 3. Bicytopenia, anemia and thrombocytopenia 4. Respiratory failure requiring high flow oxygen due to COVID 5. Retroperitoneal bleed Plan: Mr. Pena is a 75 yo male who is here for COVID pneumonia, course complicated by femoral vein DVT due to hypercoagulability from COVID. He was anticoagulated and developed acute drop in Hgb and plt, found to have retroperitoneal bleed. Hold anticoagulation due to bleeding. Supportive transfusions. Awaiting CBC from today. COVID management as per primary/pulm/ID teams. Due to concerns of COVID-19 detection/exposure, in an effort to limit healthcare provider exposure and transmission, parts of the encounter may have been obtained through chart review, family members, telephone/video visits, and/or discussion with primary team/nursing and ancillary staff.
[2020-12-17] MEDS: INSULIN DETEMIR (LEVEMIR) 100 UNIT/ML SYR SQ SCH ×2 (07:37→22:08)
[2020-12-17] MEDS: DESMOPRESSIN ACETATE 4 MCG/ML VIAL (MDV) SQ SCH (08:50)
[2020-12-17] MEDS: LEVOTHYROXINE IVP 100 MCG/5 ML VIAL IV SCH (08:50)
[2020-12-17] MEDS: CEFEPIME 2 GM in SODIUM CHLORIDE 0.9% 100 ML IVPB SCH (08:51)
[2020-12-17] MEDS: DEXAMETHASONE SOD PHOSPHATE 10 MG/ML 1 ML VIAL IV SCH (08:51)
[2020-12-17] MEDS: INSULIN ASPART (NovoLOG) 100 UNIT/ML VIAL SQ SCH ×4 (08:52→21:04)
[2020-12-17] MEDS: FAMOTIDINE 20 MG TAB PO SCH (08:52)
[2020-12-17] MEDS: PANTOPRAZOLE 40 MG/10 ML VIAL IVP SCH ×2 (08:52→21:04)
--- NOTE | 2020-12-17 09:48 | P.PN ---
Subjective Patient is seen in follow for acute kidney injury on chronic kidney disease. Creatinine 3.14 as of 12/15/20. Hemoglobin 7.8 as of yesterday. Status post multiple blood transfusions this admission. Nonoliguric. On airvo. Sleeping. Not a reliable historian. Vital signs stable. General: Appears lethargic.HEENT: On airvo. LUNGS: Breath sounds decreased. HEART: Rate and Rhythm are regular. ABDOMEN: Soft, nondistended. EXTREMITITES: 1+ edema. Objective - Vital Signs Vital signs: Vital Signs Temp 97.5 F L 12/17/20 05:57 Pulse 104 H 12/17/20 05:57 Resp 17 12/17/20 05:57 BP 112/58 12/17/20 05:57 Pulse Ox 81 L 12/17/20 08:55 Intake & Output 12/16/20 12/17/20 12/17/20 18:59 06:59 18:59 Intake Total 60 Output Total 1000 Balance -940 Weight 98.5 kg 98.6 kg Intake: Oral 60 Output: Urine 1000 Other: Voiding Method Indwelling Catheter Indwelling Catheter # Voids 1 - Labs CBC & Chem 7: 12/16/20 06:59 12/15/20 07:31 Labs: Abnormal Lab Results - Last 24 Hours (Table) 12/16/20 12/16/20 12/16/20 Range/Units 11:43 17:01 20:24 POC Glucose (mg/dL) 162 H 215 H 203 H (75-99) mg/dL 12/17/20 Range/Units 07:07 POC Glucose (mg/dL) 165 H (75-99) mg/dL Assessment and Plan Plan: Assessment: 1. Acute kidney injury secondary to ATN secondary to Covid 19 infection, hypotension and acute blood loss anemia. Creatinine 3.14 as of December 15 . No hydronephrosis noted on kidney ultrasound. Elevated BUN due to steroids, chronic kidney disease and retroperitoneal bleed. 2. 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 Creatinine 2.0 in August 2020. 3. Covid 19 infection. Maintained on steroids. Currently on airvo. 4. Diabetes mellitus. 5. Metabolic acidosis secondary to acute kidney injury and lactic acidosis. Improved. 6. Hyponatremia secondary to acute kidney injury. Possible SIADH from respiratory infection. Better. 7. Acute blood loss anemia. Has a retroperitoneal hematoma. Evaluated by surgery. Maintained on Aranesp. Status post blood transfusions this admission. Also received IV DDAVP. 8. Hypocalcemia secondary to acute kidney injury. Corrected calcium near 7.7. 9. Generalized debility. 10. Left lower extremity DVT status post Ketty filter placement. 11. Lower extremity edema. Status post IV Lasix December 16. Plan: Wean FiO2. Check chest x-ray. Continue to monitor renal function and urine output. Continue to assess daily for need for renal replacement therapy. Overall prognosis guarded. F/u AM labs.
[2020-12-17 10:01] LABS: African American GFR (CKD) 18.2 (60.0-200.0); Anion Gap 13.2 mmol/L (4.00-12.00); BUN/Creat Ratio 38.33 Ratio (12.00-20.00); Calcium 6.8 mg/dL (8.7-10.3); Carbon Dioxide 22.8 mmol/L (21.6-31.8); Magnesium 2.4 mg/dL (1.5-2.4); Potassium 4.7 mmol/L (3.5-5.5)
[2020-12-17] MEDS ORDERED: ATROPINE OPHTH SOLN 1% 5ML BTL SUBLINGUAL PRN (10:04)
[2020-12-17] MEDS ORDERED: LORazepam 2 MG/ML INJ IV PRN (10:04)
[2020-12-17 10:05] LABS: Non-African American GFR(CKD) 15.7 (60.0-200.0)
[2020-12-17] MEDS ORDERED: SCOPOLAMINE 1.5MG/72HR PATCH TRANSDERM STA (10:09)
[2020-12-17] MEDS: MORPHINE SULFATE 2 MG/ML SYRINGE IV PRN ×2 (10:46→22:57)
--- NOTE | 2020-12-17 11:13 | XR ---
EXAMINATION TYPE: XR chest 1V portable DATE OF EXAM: 12/17/2020 COMPARISON: 12/15/2020 INDICATION: Covid TECHNIQUE: Single frontal view of the chest is obtained. FINDINGS: The heart size is upper limits of normal. The pulmonary vasculature is normal. Scattered infiltrates are present bilaterally. Findings are nonspecific and can be compatible with at ypical pneumonia. There is blunting the right costophrenic angle suggestive for minimal right pleural effusion IMPRESSION: 1. Scattered bilateral lung infiltrates similar to comparison. Findings can be compatible with atypic al pneumonia. 2. Minimal right pleural effusion is present
--- NOTE | 2020-12-17 11:37 | P.PN ---
Subjective Progress Note Date: 12/17/20 Principal diagnosis: Acute COVID-19 pneumonia 75-year-old male patient, started having symptoms approximately a week ago when he started feeling a bit tired and fatigued. He subsequently developed fever and diminished appetite and some diarrhea. The patient tested positive for COVID 19 infection 4 days ago and this was again confirmed on 11/19/2020. The patient came into the emergency with weakness and shortness of breath. The patient is currently on 2 L of oxygen by nasal cannula. He is known to have CAD, previous bypass, aortic, chronic disease, diabetes mellitus and diabetic retinopathy and neuropathy and hypothyroidism and gout. Lactate was 0.7, there d-dimer was 0.6, white cell count was at 3.2 with a lymphopenia, creatinine was at 3.37 with a mean of 61. He is also on multivitamins. Chest x-ray showing diffuse bilateral pulmonary infiltrates. On today's evaluation of 4 021 the patient is currently on oxygen at 4 L per minute. The patient is quite comfortable. Pulse ox is around 95% and FiO2 can be obviously weaned off. The patient is being seen for a follow-up. The patient is currently being treated with Decadron 6 mg IV every 24 hours. The patient is also on Lovenox 40 mg subcu daily and the patient is also on Remdesivir day #2. No follow-up chest x-rays available from today. The rest of the labs are showing chronic kidney disease with a creatinine of 2.7. The patient has chronic metabolic acidosis which is of a non-anion gap type. On 11/22/2020 patient seen in follow-up. Is comfortable, still desat easily, feels tired, but no acute distress, today's labs have been reviewed, d-dimer 0.69, CRP is 35.6, no LDH. Has not had a chest x-ray, he is currently on 7 L, his pulse ox is 89%, no fever, remains on Remdesivir, today is day 3 of treatment. On 11/23/2020 patient is pretty stable, he remains on 5 L of oxygen, her pulse ox 89-90%, he is breathing comfortably, no worsening dyspnea, his 0.9, saline at 60 per hour, patient completed Remdesivir treatment, he remains on steroids, and prophylactic Lovenox. No worsening dyspnea, today's labs have been reviewed, d- dimer is 1.90, renal profile is slightly improved from yesterday, patient continues on IV fluids, no nausea vomiting or diarrhea, CRP is trending down, LDH with today is pending. On 11/25/2000 patient seen in follow-up on medical surgical floor, he is sitting up in the chair, appears to be breathing comfortably although his oxygen requirements have increased, and is currently on 15 L per high flow nasal cannula up from 12 L from yesterday, he denies any worsening dyspnea, lung sounds reveal diffuse bilateral crackles, no chest discomfort, no signs of any respiratory distress. No cough, no wheezing, today's chest x-ray shows bilateral mid to lower lung increased opacities, findings consistent with COVID- 19 pneumonia, the findings are stable in appearance. Follow-up inflammatory markers showed d-dimer of 19.16, LDH is up to 2028, CRP is 2.4. Patient has completed his Remdesivir course, she remains on daily dose of Decadron 6 mg, and Lovenox 30 mg daily, his renal function appears to be relatively stable, his bun is 64, and creatinine is 2.12 On 11/26/2020 patient seen in follow-up on medical surgical floor, he sitting up in the chair, he is breathing comfortably, he is currently down to 13 L, and his pulse ox is 90-94%, his been afebrile, overall she looks stable, he does not appear to be in any acute distress, he is a d-dimer has trended up, and on today's labs it is up to 30.3, and his Lovenox dose will be adjusted. Today's inflammatory markers are improving. He remains on daily dose IV Decadron 6 mg daily, Lovenox, multivitamins, and his IV fluids are infusing at a rate of 60 ML per hour, no new chest x-ray today, his kidney function shows slight improvement On 11/27/2000 patient seen in follow-up on medical surgical floor, he remains on high flow oxygen 15 L, and the nonrebreather mask, he does desat when he removes his nonrebreather mask down to 86% however he denies any dyspnea, he does not feel stressed at all, and looks very comfortable, he sitting up in the recliner, awake and alert, oriented 3, he is afebrile, hemodynamically has been stable, he has no specific complaints, and his today's chest x-ray shows cardiomegaly and low lung volumes with bilateral mid to lower lung reticular and confluent opacities consistent with COVID-19 pneumonia with no change from previousexam. Today's labs have been reviewed, white blood cell count is 5.45, hemoglobin is 9.3, no d-dimer today, but yesterday's d-dimer was quite elevated at 30.3, and his Lovenox dose was adjusted and increased to 40 mg twice a day, his electrolyte panel shows CO2 of 28.1, but prostate electrolytes are within normal limits, B1 is 84, creatinine is 2.2, his LDH is down to 687, improving, his CRP is 1.2 on today's labs. He continues on Decadron 6 mg daily, he is on Lovenox 40 mg twice a day, and he is receiving IV hydration at 60 ML per hour, nephrology is following On 11/28/2020 patient seen in follow-up on medical surgical floor, he is resting comfortably in bed, he is currently on 15 L high flow and 100% nonrebreather, he looks quite comfortable, he denies any shortness of breath, minimal cough, he is breathing comfortably, his pro-calcitonin level was low, his inflammatory markers were improving, his d-dimer was elevated on 11/26/2020 patient is on 40 mg of Lovenox twice daily, Lasix is at 40 mg every 12 hours patient is in negative fluid balance. No new chest x-ray today On 11/29/2000 patient seen in follow-up on medical surgical floor, is currently on 15 L per high flow nasal cannula, and 100 nonrebreather mask, and he is satting about 93%, he does not feel short of breath, he seems to be breathing very comfortably, he is afebrile, hemodynamically stable, his chest x-ray today shows low lung volumes with bilateral mid to lower lung reticular and confluent opacities consistent with COVID-19 pneumonia. Findings are similar to his previous chest x-ray, lower extremity Dopplers were completed and he was negative for DVT. His d-dimer is trending down, and is down to 16.0. The rest of his lab work has been reviewed, showing white blood cell count of 8.7, hemoglobin of 10.5, sodium is 136, potassium is 4.5, chloride is 98, BUN of 108, and creatinine is 3.2, his calcitonin level was negative at 0.10, his inflammatory markers were improving since admission. No nausea vomiting or diarrhea, and patient continues on daily dose of IV Decadron 6 mg, continues on Lovenox 40 mg twice daily, she was given a dose of Lasix yesterday and he was started on maintenance dose of IV Lasix On 11/30/2020 patient seen in follow-up on medical surgical floor, he is resting comfortably in bed, currently off the nonrebreather mask, on 15 L per high flow nasal cannula with his pulse ox is 90-91%, he looks very comfortable, breathing comfortably, no worsening dyspnea. Cooperative chest discomfort, no cough. No fever or chills. No acute events overnight, patient did receive 1 dose of Toci yesterday 720 mg, he remains on Lovenox 40 mg twice a day, and daily dose Decadron, today's labs have been reviewed, showing white blood cell, 10.1, hemoglobin of 10.3, d-dimer is trending down, down to 11.4, electrolytes are within normal limits, renal profile shows some improvement, pro-Joshua was negative, inflammatory markers are trending down, patient denies any specific complaints On 12/01/2020 patient seen in follow-up on medical surgical floor, is currently on 15 L per high flow nasal cannula and nonrebreather mask, and his pulse ox is 100%, he is breathing very comfortably, denies any cough, denies any chest pain, has had no fever or chills, no nausea vomiting diarrhea, no abdominal pain, no new chest x-rays, his labs have been reviewed, d-dimer today is 12.5, electrolytes are unremarkable, his renal profile slightly improved, his BUN is 113, and creatinine is 2.59. On 12/02/2020 patient seen in follow-up on medical surgical floor, he is currently back on 11 L of oxygen resting comfortably in bed, in comfortably, in his pulse ox was 99%, we dropped the FiO2 down to 8 L, and we instructed the nursing staff to continue weaning it to maintain O2 saturations at or above 90%, patient has no specific complaints, no cough, no chest discomfort, no fever, no chills no headaches, no nausea vomiting or diarrhea. Renal function continues to be impaired, and nephrology is following, his BUN is 1:30, and creatinine is 2.70, electrolytes were unremarkable on today's labs. No new chest x-ray today. Patient remains on IV Decadron 6 mg, and Lovenox is currently at 40 mg twice daily. Follow-up d-dimer is pending for today. The patient is seen today 12/03/2020 follow-up on the regular medical floor. He is currently resting fairly comfortably in bed. They did call and A team on the patient earlier this morning. He had some hypotension. He was found to have a hemoglobin of 6.8 down from 10.3. No active GI bleeding noted. He was given 1 L fluid resuscitation and is receiving 2 units of packed red blood cells. Blood pressure is currently stable. He is still requiring oxygen at 10 L high flow nasal cannula. D-dimer 9.00. White count 22.1. Platelets 106. Sodium 134. Potassium 4.8. BUN 136. Creatinine 3.03. Glucose 149. LDH 1654. C-reactive protein 0.9. He remains on Lovenox, dexamethasone, vitamin supplements. The patient is seen today 12/09/2020 in follow-up on the regular medical floor. He is still on AirVo high flow oxygen at 60 L and 70% FiO2 on with a non rebreather mask. He has been getting progressively weak and less responsive. Hemoglobin today 6.8. He is status post 4 units of packed red blood cells this admission. He did undergo a IVC filter placement yesterday. Urine culture was positive for E. coli and Enterococcus faecalis. Blood cultures revealing no growth. White count 19.8. Platelets 69,000. Sodium 145. Potassium 4.0. BUN 125. Creatinine 3.4. Blood glucose 198. Calcium 5.8. AST 38. ALT 45. He remains on cefepime and Zyvox. He is continued on Decadron, vitamin supplements. The patient is seen today 12/16/2020 in follow-up on the regular medical floor. He is arousable, but drifts back off to sleep easily. He is maintained on the AirVo high flow oxygen device at 60% and 60 L. Currently at 80% O2 saturation. He is currently afebrile. Hemodynamically stable. He has received 6 units packed red blood cells this admission. Platelets times one. Current hemoglobin 7.8. Platelet count 22,000. Urine culture had revealed E. coli and Enterococcus faecalis. Blood cultures had revealed no growth. White count 4.4. Remains on cefepime. Continued on Decadron. He received a dose of Lasix 20 mg IVP 1 this morning. The patient is seen today 12/17/2020 in follow-up on the regular medical floor. The resting comfortably in bed. Arousable but again drifts off easily. He is currently on 10 liters high flow nasal cannula maintaining O2 saturation in the mid 80s. He is status post 6 units of packed red blood cells this admission. His most recent hemoglobin yesterday was 7.8. 147. Potassium 4.7. BUN 138. Creatinine 3.6. He remains on cefepime. His is at the bedside and is considering comfort care. Objective - Vital Signs Vital signs: Vital Signs Temp 98.1 F 12/17/20 10:00 Pulse 79 12/17/20 10:00 Resp 22 12/17/20 10:00 BP 118/65 12/17/20 10:00 Pulse Ox 84 L 12/17/20 10:13 Intake & Output 12/16/20 12/17/20 12/17/20 18:59 06:59 18:59 Intake Total 60 Output Total 1000 Balance -940 Weight 98.5 kg 98.6 kg Intake: Oral 60 Output: Urine 1000 Other: Voiding Method Indwelling Catheter Indwelling Catheter # Voids 1 - Exam GENERAL EXAM: Arousable, pale, weak 75-year-old gentleman, on 10 L high flow nasal cannula, fairly comfortable in no apparent distress. HEAD: Normocephalic. EYES: Normal reaction of pupils, equal size. NOSE: Clear with pink turbinates. THROAT: No erythema or exudates. NECK: No masses, no JVD. CHEST: No chest wall deformity. LUNGS: Equal air entry with crackles in the bilateral posterior bases. CVS: S1 and S2 normal with no audible murmur, regular rhythm. ABDOMEN: No hepatosplenomegaly, normal bowel sounds, no guarding or rigidity. SPINE: No scoliosis or deformity SKIN: No rashes CENTRAL NERVOUS SYSTEM: No focal deficits, tone is normal in all 4 extremities. EXTREMITIES: There is no peripheral edema. No clubbing, no cyanosis. Peripheral pulses are intact. - Labs CBC & Chem 7: 12/16/20 06:59 12/17/20 06:24 Labs: Abnormal Lab Results - Last 24 Hours (Table) 12/16/20 12/16/20 12/16/20 Range/Units 11:43 17:01 20:24 Sodium (135-145) mmol/L Chloride (96-109) mmol/L Anion Gap (4.00-12.00) mmol/L BUN (9.0-27.0) mg/dL Creatinine (0.6-1.5) mg/dL Est GFR (CKD-EPI)AfAm (60.0-200.0) Est GFR (CKD-EPI)NonAf (60.0-200.0) BUN/Creatinine Ratio (12.00-20.00) Ratio Glucose (70-110) mg/dL POC Glucose (mg/dL) 162 H 215 H 203 H (75-99) mg/dL Calcium (8.7-10.3) mg/dL 12/17/20 12/17/20 Range/Units 06:24 07:07 Sodium 147 H (135-145) mmol/L Chloride 111 H (96-109) mmol/L Anion Gap 13.20 H (4.00-12.00) mmol/L BUN 138.0 H* (9.0-27.0) mg/dL Creatinine 3.6 H (0.6-1.5) mg/dL Est GFR (CKD-EPI)AfAm 18.2 L (60.0-200.0) Est GFR (CKD-EPI)NonAf 15.7 L (60.0-200.0) BUN/Creatinine Ratio 38.33 H (12.00-20.00) Ratio Glucose 151 H (70-110) mg/dL POC Glucose (mg/dL) 165 H (75-99) mg/dL Calcium 6.8 L (8.7-10.3) mg/dL Assessment and Plan Assessment: 1 Acute COVID 19 related pneumonia with secondary shortness of breath and hypoxic respiratory failure the patient's symptoms of generalized weakness and dehydration, currently on AirVo high flow oxygen at 60 L and 60% FiO2, patient was started on Remdesivir on 11/20/2020, Toci on 11/29/2020 2 Acute hypoxic respiratory failure currently on AirVo at 60 L and 60% FiO2 3 Acute anemia with a current hemoglobin of 7.8. 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 Pacheco He is off the AirVo and currently on 10 L high flow nasal cannula Overall prognosis is quite poor DO NOT RESUSCITATE/DO NOT INTUBATE CODE STATUS is at the bedside and considering comfort care We will sign off the case
--- NOTE | 2020-12-17 11:44 | P.PN ---
Progress Note - Text Progress Note Date: 12/17/20 Patient with stable. Abdomen soft. PEG tube remains on standby.
--- NOTE | 2020-12-17 15:25 | PN ---
PROGRESS NOTE DATE OF SERVICE: 12/17/2020 REASON FOR FOLLOWUP: Pneumonia. INTERVAL HISTORY: The patient was seen on rounds this afternoon. The patient has been afebrile. The patient is hemodynamically stable. The patient remains to be lethargic. Unable to provide any history. She remains to be on high-flow AIRVO saturating around 85%. EXAMINATION: Blood pressure 119/65, pulse of 69, temperature 98.1. He is 95% on high-flow oxygen. General description is an elderly male lying in bed in no distress. Respiratory system: Unlabored breathing, clear to auscultation anteriorly. Heart S1, S2. Regular rate and rhythm. ABDOMEN: Soft, no tenderness. LABS: BUN is 138, creatinine 3.6. DIAGNOSTIC IMPRESSION AND PLAN: Patient with acute respiratory failure, multifactorial, in this patient who did have initial Covid 19 pneumonia followed by possible secondary bacterial pneumonia. The patient did have some improvement, however did have worsening of his kidney function. Cultures have been negative. White count normal. Plan is for possible hospice per the nursing care. If that is the case, antibiotic can be safely discontinued. Discussed with the patient's nurse. Questions and concerns were answered. MMODL / IJN: [id number] /
[2020-12-17] MEDS: allopurinoL 100 MG TAB PO SCH (16:55)
[2020-12-17] MEDS: DEXTROSE 5% IN WATER 1,000 ML IV SCH (16:55)
[2020-12-17 20:20] LABS: Glucose,Whole Blood 281 mg/dL (75-99)
--- NOTE | 2020-12-17 21:43 | P.PN ---
Progress Note - Text Progress Note Date: 12/17/20 Chief Complaint: Tired History of presenting complaint: Pleasant 75-year-old patient of Dr. Horta. Chronic stable medical conditions include diabetes, hypothyroid, gout, peripheral neuropathy, diabetic retinopathy, chronic kidney disease, coronary artery disease with a history of bypass and AICD. Patient's is by the bedside who provides most of the history. Patient about 7 days ago on Friday every couple of days before that has started feeling a little bit tired. Motor worse on Friday. Also developed a fever. Decreased appetite diet. Had some diarrhea. Body aches. No loss of smell or taste. Patient did have COVID rapid tested on that was negative. Now becomes short of breath with minimal exertion tired rundown. Patient is tested positive for COVID 19. Initial pulse ox on room air was 98% and then did go down to 94% on 2 L. Admitted with acute bilateral COVID 19 pneumonitis, acute hypoxic respiratory failure, acute myocarditis. Placed on dexamethasone Lovenox. IV Remdesivir. Patient is requiring high flow oxygen. Patient dropped his hemoglobin on the . Receive 5 units of blood. Developed retroperitoneal bleed. Left leg DVT-IVC filter placed on December 08. Patient gradually has become worse. short periods of improvement. I have be speaking to the , on a regular basis. She understands prognosis not good. Today: Sulfa patient this morning. Remains rather lethargic. On high flow oxygen. Barely arousable. Review of systems: Could not be obtained Active Medications Acetaminophen (Acetaminophen Tab 325 Mg Tab) 650 mg PO Q6HR PRN PRN Reason: Fever and/ or Pain Last Admin: 12/06/20 20:49 Dose: 650 mg Documented by: Allopurinol (Allopurinol 100 Mg Tab) 100 mg PO W/SUPPER MATT Last Admin: 12/17/20 16:55 Dose: Not Given Documented by: Atropine Sulfate (Atropine Ophth Soln 1% 5ml Btl) 2 drops SUBLINGUAL Q4HR PRN PRN Reason: Excess Secretions Calcium Carbonate/Glycine (Calcium Carbonate 500 Mg Chewable) 1,000 mg PO ONCE PRN PRN Reason: Heartburn Last Admin: 12/12/20 11:44 Dose: 1,000 mg Documented by: Darbepoetin Rizwan (Darbepoetin Rizwan 40 Mcg/0.4 Ml Syringe) 40 mcg SQ Q7D [facility] Last Admin: 12/12/20 11:43 Dose: 40 mcg Documented by: Desmopressin Acetate (Desmopressin Acetate 4 Mcg/Ml Vial (Mdv)) 1 mcg SQ DAILY [facility] Last Admin: 12/17/20 08:50 Dose: 1 mcg Documented by: Dexamethasone Sodium Phosphate (Dexamethasone Sod Phosphate 10 Mg/Ml 1 Ml Vial) 6 mg IV DAILY [facility] Last Admin: 12/17/20 08:51 Dose: 6 mg Documented by: Famotidine (Famotidine 20 Mg Tab) 20 mg PO DAILY [facility] Last Admin: 12/17/20 08:52 Dose: Not Given Documented by: Cefepime HCl 2 gm/ Sodium (Chloride) 100 mls @ 25 mls/hr IVPB Q24HR [facility] Last Admin: 12/17/20 08:51 Dose: 25 mls/hr Documented by: Dextrose/Water (Dextrose 5%-Water Iv Soln) 1,000 mls @ 50 mls/hr IV .Q20H [facility] Last Admin: 12/17/20 16:55 Dose: Not Given Documented by: Insulin Aspart (Insulin Aspart (Novolog) 100 Unit/Ml Vial) 0 unit SQ [facility]; Protocol Last Admin: 12/17/20 21:04 Dose: 4 unit Documented by: Insulin Detemir (Insulin Detemir (Levemir) 100 Unit/Ml Syr) 35 unit SQ DAILY@0700 [facility] Last Admin: 12/17/20 07:37 Dose: Not Given Documented by: Insulin Detemir (Insulin Detemir (Levemir) 100 Unit/Ml Syr) 35 unit SQ [facility] Last Admin: 12/16/20 20:50 Dose: Not Given Documented by: Levothyroxine Sodium (Levothyroxine Ivp 100 Mcg/5 Ml Vial) 50 mcg IV DAILY [facility] Last Admin: 12/17/20 08:50 Dose: 50 mcg Documented by: Lorazepam (Lorazepam 2 Mg/Ml Inj) 1 mg IV Q6HR PRN PRN Reason: Anxiety Morphine Sulfate (Morphine Sulfate 2 Mg/Ml Syringe) 2 mg IV Q15M PRN PRN Reason: Breakthrough Pain Last Admin: 12/17/20 10:46 Dose: 2 mg Documented by: Naloxone HCl (Naloxone 0.4 Mg/Ml 1 Ml Vial) 0.2 mg IV Q2M PRN PRN Reason: Opioid Reversal Pantoprazole Sodium (Pantoprazole 40 Mg/10 Ml Vial) 40 mg IVP BID MATT Last Admin: 12/17/20 21:04 Dose: 40 mg Documented by: Past medical history to include: Diabetes, hypothyroid, gout, diabetic peripheral neuropathy, diabetic retinopathy, chronic kidney disease stage IV, coronary artery disease with bypass, AICD Social history: No history of smoking or alcohol. . 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 PSYCH: Lethargic tired and unable to assess NEUROLOGICAL: Cranial nerves grossly intact; no facial asymmetry, moving all 4 limbs Rest of exam per pulmonary and nursing INVESTIGATIONS, reviewed in the clinical context: December 16: Hemoglobin 7.8 December 15: WBC 5.1 hemoglobin 6.9 platelets 28 potassium 4.4 creatinine 3.14 December 14: WBC 7.2 hemoglobin 7.6 platelets 43 potassium 4.6 bun 112 creatinine 3.1 December 08: Accu-Cheks 59, 63 Ultrasound Doppler lower extremity bilateral: Acute DVT in the left lower extremity with hyperexpanded material filling the lumen and absent color flow begins in the superficial femoral vein and more prominent findings in the mid and distal sebaceous femoral vein. December 07: WBC 20.04 hemoglobin 7.6 platelets 66 potassium 4.7 creatinine 3.2 bun 154 calcium 6.1 phosphorus 8 Computed tomography scan of abdomen and pelvis: Fairly moderate to large size pelvic retroperitoneal hematoma with local mass effect. Mild cortical thinning in both the kidneys. November 21: Potassium 4.8 creatinine 2.7 2-D echocardiogram: EF 50-55% November 20 Potassium 5.1 creatinine 2.85 d-dimer 0.47 CRP 70 WBC 3.2 hemoglobin 9.7 platelets 164 lymphocytes 0.5 sodium 131 potassium 4.8 bun 61 creatinine 3.37 Troponin I 0.073, 0.073, 0.068 albumin 3.2 Urine protein 2+ moderate blood Coronavirus [PCR] detected EKG tracing personally reviewed by me-normal sinus rhythm Chest x-ray film personally reviewed by me-bilateral infiltrates Renal ultrasound-normal Assessment and plan: -Acute bilateral COVID 19 pneumonia. Symptoms started about a week before presentation.-Slow to respond on IV dexamethasone, subcu Lovenox-held, vitamin C vitamin D Pepcid and zinc. November 20 - Remdesivir -Acute hypoxic respiratory failure, secondary to COVID 19 pneumonia: -Slow to respond Remains on Airvo/nonrebreather 60/65% -Acute myocarditis secondary to COVID 19 Telemetry. watch for arrhythmias. -Acute kidney injury likely ATN from sepsis from COVID 19, hypertension.-Slow to respond . IV fluids -Chronic kidney disease stage IV secondary to diabetic kidney disease. Creatinine 2.17 August 2020 Follow renal function -AICD On telemetry -Coronary artery disease with prior history of carotid bypass Continue with Coreg, Lipitor, aspirin -Hypothyroid Continue with Synthroid. Change to IV Synthroid -Diabetes mellitus type 2, on oral hypoglycemic, uncontrolled with hyperglycemia Follow Accu-Cheks with sliding scale insulin. Increase Levemir to 28 units at night -Chronic gout Continue with allopurinol -Anemia of chronic kidney disease Follow H&H and continue with erythropoietin -Diabetic retinopathy Follow clinically -Diabetic peripheral neuropathy Follow clinically -Hyponatremia from a relative decrease in solute from decreased appetite- improving Saline IV -Metabolic acidosis due to chronic kidney disease Supplement bicarb -Acute retroperitoneal bleed likely from patient being on Lovenox Lovenox has been on hold. General surgery -weight and watch -Acute severe blood loss anemia from retroperitoneal bleed received a total of 4 units of blood . 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 Patient not a candidate for anticoagulation. IVC filter, cook/la nena -Hyperphosphatemia due to acute on chronic kidney disease -Thrombocytopenia likely from underlying infection -Acute metabolic and hypoxic encephalopathy- worsening -CODE STATUS DO NOT RESUSCITATE Discussed with the at the bedside. She understands the patient is doing poorly. Continue supportive care. Patient really taking a sip of water.
[2020-12-18 02:35] VITALS: PULSE 83
[2020-12-18 05:42] VITALS: BP 114/60; TEMP 97.5
[2020-12-18] MEDS: MORPHINE SULFATE 2 MG/ML SYRINGE IV PRN ×5 (06:23→22:52)
[2020-12-18] MEDS: INSULIN ASPART (NovoLOG) 100 UNIT/ML VIAL SQ SCH ×4 (07:29→21:06)
[2020-12-18] MEDS: INSULIN DETEMIR (LEVEMIR) 100 UNIT/ML SYR SQ SCH ×2 (08:05→20:31)
[2020-12-18] MEDS: DEXTROSE 5% IN WATER 1,000 ML IV SCH (08:05)
[2020-12-18] MEDS: PANTOPRAZOLE 40 MG/10 ML VIAL IVP SCH ×2 (08:06→20:33)
[2020-12-18] MEDS: CEFEPIME 2 GM in SODIUM CHLORIDE 0.9% 100 ML IVPB SCH (08:06)
[2020-12-18] MEDS: DEXAMETHASONE SOD PHOSPHATE 10 MG/ML 1 ML VIAL IV SCH (08:06)
[2020-12-18] MEDS: FAMOTIDINE 20 MG TAB PO SCH (08:07)
[2020-12-18] MEDS: LEVOTHYROXINE IVP 100 MCG/5 ML VIAL IV SCH (10:26)
[2020-12-18 10:58] LABS: African American GFR (CKD) 18.2 (60.0-200.0); Anion Gap 12.6 mmol/L (4.00-12.00); BUN/Creat Ratio 38.06 Ratio (12.00-20.00); Calcium 6.7 mg/dL (8.7-10.3); Carbon Dioxide 24.4 mmol/L (21.6-31.8); Magnesium 2.6 mg/dL (1.5-2.4); Non-African American GFR(CKD) 15.7 (60.0-200.0); Potassium 4.6 mmol/L (3.5-5.5)
--- NOTE | 2020-12-18 12:24 | P.PN ---
Subjective Patient is seen in follow for acute kidney injury on chronic kidney disease. Creatinine stable at 2.6. Sodium level CXLVIII. Status post multiple blood transfusions this admission. Nonoliguric. Currently on high flow cannula. Vital signs stable. General: Appears lethargic.HEENT: On airvo. LUNGS: Breath sounds decreased. HEART: Rate and Rhythm are regular. ABDOMEN: Soft, nondistended. EXTREMITITES: 1+ edema. Objective - Vital Signs Vital signs: Vital Signs Temp 97.5 F L 12/18/20 05:41 Pulse 83 12/18/20 08:00 Resp 20 12/18/20 08:00 BP 114/60 12/18/20 05:41 Pulse Ox 89 L 12/18/20 05:41 Intake & Output 12/17/20 12/18/20 12/18/20 18:59 06:59 18:59 Output Total 375 Balance -375 Weight 97.7 kg Output: Urine 375 Other: Voiding Method Indwelling Catheter Indwelling Catheter - Labs CBC & Chem 7: 12/16/20 06:59 12/18/20 07:14 Labs: Abnormal Lab Results - Last 24 Hours (Table) 12/17/20 12/18/20 Range/Units 20:18 07:14 Sodium 148 H (135-145) mmol/L Chloride 111 H (96-109) mmol/L Anion Gap 12.60 H (4.00-12.00) mmol/L BUN 137.0 H* (9.0-27.0) mg/dL Creatinine 3.6 H (0.6-1.5) mg/dL Est GFR (CKD-EPI)AfAm 18.2 L (60.0-200.0) Est GFR (CKD-EPI)NonAf 15.7 L (60.0-200.0) BUN/Creatinine Ratio 38.06 H (12.00-20.00) Ratio Glucose 126 H (70-110) mg/dL POC Glucose (mg/dL) 281 H (75-99) mg/dL Calcium 6.7 L (8.7-10.3) mg/dL Magnesium 2.6 H (1.5-2.4) mg/dL Assessment and Plan Plan: Assessment: 1. Acute kidney injury secondary to ATN secondary to Covid 19 infection, hypotension and acute blood loss anemia. Creatinine 3.6. No hydronephrosis noted on kidney ultrasound. Elevated BUN due to steroids, chronic kidney disease and retroperitoneal bleed. 2. 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 Creatinine 2.0 in August 2020. 3. Covid 19 infection. Maintained on steroids. Currently on airvo. 4. Diabetes mellitus. 5. Metabolic acidosis secondary to acute kidney injury and lactic acidosis. Improved. 6. Hyponatremia secondary to acute kidney injury. Possible SIADH from respiratory infection. Better. 7. Acute blood loss anemia. Has a retroperitoneal hematoma. Evaluated by surgery. Maintained on Aranesp. Status post blood transfusions this admission. Also received IV DDAVP. 8. Hypocalcemia secondary to acute kidney injury. Corrected calcium near 7.7. 9. Generalized debility. 10. Left lower extremity DVT status post [place] filter placement. 11. Lower extremity edema. Status post IV Lasix December 16. Plan: No changes from nephrology standpoint. Family has decided to proceed with comfort measures.
--- NOTE | 2020-12-18 13:44 | P.PN ---
Subjective Progress Note Date: 12/18/20 Principal diagnosis: Covid infection. Anemia of chronic kidney disease on epo Mr. Pena cont on high flow O2, he is not responsive to voice today. His family is at the bedside. Objective - Vital Signs Vital signs: Vital Signs Temp 97.5 F L 12/18/20 05:41 Pulse 83 12/18/20 08:00 Resp 20 12/18/20 08:00 BP 114/60 12/18/20 05:41 Pulse Ox 89 L 12/18/20 05:41 Intake & Output 12/17/20 12/18/20 12/18/20 18:59 06:59 18:59 Output Total 375 Balance -375 Weight 97.7 kg Output: Urine 375 Other: Voiding Method Indwelling Catheter Indwelling Catheter - Exam WD male, pale, swelling in upper extremities, bruising of the thin skin on the forearms, breathing is shallow, not labored, audible congestion, skin is cool to touch, no mottling, BLE 2+ pitting edema - Labs CBC & Chem 7: 12/16/20 06:59 12/18/20 07:14 Labs: Abnormal Lab Results - Last 24 Hours (Table) 12/17/20 12/18/20 Range/Units 20:18 07:14 Sodium 148 H (135-145) mmol/L Chloride 111 H (96-109) mmol/L Anion Gap 12.60 H (4.00-12.00) mmol/L BUN 137.0 H* (9.0-27.0) mg/dL Creatinine 3.6 H (0.6-1.5) mg/dL Est GFR (CKD-EPI)AfAm 18.2 L (60.0-200.0) Est GFR (CKD-EPI)NonAf 15.7 L (60.0-200.0) BUN/Creatinine Ratio 38.06 H (12.00-20.00) Ratio Glucose 126 H (70-110) mg/dL POC Glucose (mg/dL) 281 H (75-99) mg/dL Calcium 6.7 L (8.7-10.3) mg/dL Magnesium 2.6 H (1.5-2.4) mg/dL Assessment and Plan (1) Acute on chronic renal failure Current Visit: Yes Status: Acute Priority: High Code(s): N17.9 - ACUTE KIDNEY FAILURE, UNSPECIFIED; N18.9 - CHRONIC KIDNEY DISEASE, UNSPECIFIED SNOMED Code(s): 299402252 (2) DVT (deep venous thrombosis) Current Visit: Yes Status: Acute Priority: High Code(s): I82.409 - ACUTE EMBOLISM AND THOMBOS UNSP DEEP VN UNSP LOWER EXTREMITY SNOMED Code(s): 822529552 (3) Retroperitoneal hematoma Current Visit: Yes Status: Acute Priority: High Code(s): K66.1 - HEMOPERITONEUM SNOMED Code(s): 941984294 (4) Leukocytosis Current Visit: Yes Status: Acute Priority: High Code(s): D72.829 - ELEVATED WHITE BLOOD CELL COUNT, UNSPECIFIED SNOMED Code(s): 804918202 (5) Thrombocytopenia Current Visit: Yes Status: Acute Priority: High Code(s): D69.6 - THR OMBOCYTOPENIA, UNSPECIFIED SNOMED Code(s): 562334738 Plan: Recent diagnosis of left lower extremity DVT, placed on anticoagulation, and subsequent retroperitoneal hemorrhage. Patient has had an IVC filter placement as he is not a candidate for anticoagulation. Transfuse for Hgb < 7. Conservative transfusions for patient based on symptoms. Want to avoid unnecessary fluid overload. Transfuse for platelets less than 10,000 or if acute bleeding. Platelets are low secondary to acute infection. Elevated WBC/ANC secondary to infection, no acute intervention from a Hematology standpoint If pursuing comfort pt will likely have no more needle sticks or labs. Acute on chronic renal failure. Nephrology following. Dev weekly Spoke with family about pt condition. Answered some questions and talked through concerns. Pt is not likely to improve. His PS is poor and he is getting weaker with each passing day. They have opted for comfort measures. They had a few questions about hospice care at home or in a facility. I answered all their questions to the best of my ability. I explained that if life expectancy if felt to be> a week they may be asked to decide if they would like to continue hospice at home or in a skilled facility. They verbalized understanding.
--- NOTE | 2020-12-18 13:44 | P.PN ---
Subjective Progress Note Date: 12/18/20 CHIEF COMPLAINT: Protein malnutrition HISTORY OF PRESENT ILLNESS: The patient is a 75-year-old male with COVID pneumonia including generalized weakness found to have retroperitoneal hematoma during hospitalization including persistent anemia. His overall global condition continued to decline. Platelets are severe under 25,000. Patient continues to have worsening condition. Per discussion with nursing team, patient is now Comfort Care care. ROS: No reports of nausea and vomiting. No fevers or chills. PHYSICAL EXAM: VITAL SIGNS: Reviewed CONSTITUTIONAL: Well developed and in no acute distress. EYES: Conjuctivae without sclera icterus. Extraocular movements grossly intact. HEAD, EARS, NOSE, THROAT: Moist buccal mucosa. Head is atraumatic, normocephalic. Hears conversational speech. No nasal drainage. NECK: Supple. RESPIRATORY: Non-labored respirations and equal bilateral excursions. CARDIOVASCULAR: Palpable 2+ radial pulses. ABDOMEN: No peritonitis. MUSCULOSKELETAL: No gross deformity of the lower extremities noted. No clubbing SKIN: Good skin turgor. Well perfused. NEUROLOGIC: No focal or lateralizing signs. PSYCH: Lethargic. CLINICAL LABS: Platelets decline less than 21,000, 12/16/2020. BUN elevated over 118. Creatinine elevated over 3.0. ASSESSMENT: 1. Inadequate oral intake. 2. Protein calorie malnutrition 3. Covid pneumonia 4. DVT contraindicated anticoagulation 5. Retroperitoneal hematoma 6. End-stage renal disease, dialysis PLAN: 1. With the patient's global decline including multiple medical comorbidities, patient is on Comfort Care. 2. No surgical intervention advised Objective - Vital Signs Vital signs: Vital Signs Temp 97.5 F L 12/18/20 05:41 Pulse 83 12/18/20 08:00 Resp 20 12/18/20 08:00 BP 114/60 12/18/20 05:41 Pulse Ox 89 L 12/18/20 05:41 Intake & Output 12/17/20 12/18/20 12/18/20 18:59 06:59 18:59 Output Total 375 Balance -375 Weight 97.7 kg Output: Urine 375 Other: Voiding Method Indwelling Catheter Indwelling Catheter - Labs CBC & Chem 7: 12/16/20 06:59 12/18/20 07:14 Labs: Abnormal Lab Results - Last 24 Hours (Table) 05/09/21 05/10/21 Range/Units 20:18 07:14 Sodium 148 H (135-145) mmol/L Chloride 111 H (96-109) mmol/L Anion Gap 12.60 H (4.00-12.00) mmol/L BUN 137.0 H* (9.0-27.0) mg/dL Creatinine 3.6 H (0.6-1.5) mg/dL Est GFR (CKD-EPI)AfAm 18.2 L (60.0-200.0) Est GFR (CKD-EPI)NonAf 15.7 L (60.0-200.0) BUN/Creatinine Ratio 38.06 H (12.00-20.00) Ratio Glucose 126 H (70-110) mg/dL POC Glucose (mg/dL) 281 H (75-99) mg/dL Calcium 6.7 L (8.7-10.3) mg/dL Magnesium 2.6 H (1.5-2.4) mg/dL Assessment and Plan (1) Protein calorie malnutrition Current Visit: Yes Status: Acute Code(s): E46 - UNSPECIFIED PROTEIN-CALORIE MALNUTRITION SNOMED Code(s): 907649965 (2) Inadequate dietary intake of protein Current Visit: Yes Status: Acute Code(s): E63.9 - NUTRITIONAL DEFICIENCY, UNSPECIFIED SNOMED Code(s): 163477271 (3) Pneumonia due to COVID-19 virus Current Visit: Yes Status: Acute Code(s): U07.1 - COVID-19; J12.82 - Pneumonia due to coronavirus disease 2019 SNOMED Code(s): 885615924927170131 (4) Acute on chronic renal failure Current Visit: Yes Status: Acute Priority: High Code(s): N17.9 - ACUTE KIDNEY FAILURE, UNSPECIFIED; N18.9 - CHRONIC KIDNEY DISEASE, UNSPECIFIED SNOMED Code(s): 295582102 (5) COVID-19 Current Visit: Yes Status: Acute Code(s): U07.1 - COVID-19 SNOMED Code(s): 772104087 (6) DVT (deep venous thrombosis) Current Visit: Yes Status: Acute Priority: High Code(s): I82.409 - ACUTE EMBOLISM AND THOMBOS UNSP DEEP VN UNSP LOWER EXTREMITY SNOMED Code(s): 762769192 (7) Retroperitoneal hematoma Current Visit: Yes Status: Acute Priority: High Code(s): K66.1 - HEMOPE RITONEUM SNOMED Code(s): 283855948 (8) Thrombocytopenia Current Visit: Yes Status: Acute Priority: High Code(s): D69.6 - THROMBOCYTOPENIA, UNSPECIFIED SNOMED Code(s): 359377620
[2020-12-18] MEDS: DESMOPRESSIN ACETATE 4 MCG/ML VIAL (MDV) SQ SCH (15:06)
[2020-12-18] MEDS: allopurinoL 100 MG TAB PO SCH (16:08)
[2020-12-18 20:48] LABS: Glucose,Whole Blood 23 mg/dL (75-99)
--- NOTE | 2020-12-18 23:12 | P.PN ---
Subjective Progress Note Date: 12/18/20 Principal diagnosis: Acute hypoxic respiratory failure due to COVID Pneumonia Mr. Pena is a 75-year-old gentleman with a past medical history of hypertension, hypothyroidism, diabetes mellitus, peripheral neuropathy, diabetic retinopathy, chronic kidney disease, coronary artery disease status post CABG and AICD admitted for fever decreased appetite and diarrhea. Patient's Covid rapid test was positive and he was admitted for acute bilateral COVID-19 pneumonitis. Patient was given remdesivir, dexamethasone and required high flow oxygen. Patient dropped his hemoglobin on December 03, he had received 5 units of blood. Patient developed retroperitoneal bleed he was also having left lower leg DVT and had IVC filter placement on December 08. Eventually patient's c ondition worsened and today when I went to see the patient, his family is at bedside having discussion regarding hospice care. Patient was resting comfortably in the bed does not appear to be in any acute distress. His family members at bedside. Patient's medications have been reviewed. Objective - Vital Signs Vital signs: Vital Signs Temp 97.5 F L 12/18/20 05:41 Pulse 83 12/18/20 08:00 Resp 20 12/18/20 08:00 BP 114/60 12/18/20 05:41 Pulse Ox 89 L 12/18/20 05:41 Intake & Output 12/17/20 12/18/20 12/18/20 18:59 06:59 18:59 Output Total 375 Balance -375 Weight 97.7 kg Output: Urine 375 Other: Voiding Method Indwelling Catheter Indwelling Catheter - Exam Patient is lying in bed comfortably and his family at bed side. He looks pale with shallow breathing Multiple bruises over his extremities - Labs CBC & Chem 7: 12/16/20 06:59 12/18/20 07:14 Labs: Abnormal Lab Results - Last 24 Hours (Table) 12/17/20 12/18/20 Range/Units 20:18 07:14 Sodium 148 H (135-145) mmol/L Chloride 111 H (96-109) mmol/L Anion Gap 12.60 H (4.00-12.00) mmol/L BUN 137.0 H* (9.0-27.0) mg/dL Creatinine 3.6 H (0.6-1.5) mg/dL Est GFR (CKD-EPI)AfAm 18.2 L (60.0-200.0) Est GFR (CKD-EPI)NonAf 15.7 L (60.0-200.0) BUN/Creatinine Ratio 38.06 H (12.00-20.00) Ratio Glucose 126 H (70-110) mg/dL POC Glucose (mg/dL) 281 H (75-99) mg/dL Calcium 6.7 L (8.7-10.3) mg/dL Magnesium 2.6 H (1.5-2.4) mg/dL Assessment and Plan Assessment: ASSESSMENT Acute hypoxic respiratory failure secondary to COVID-19 pneumonia Hypothermia Hypotension Acute blood loss anemia Retroperitoneal bleed Thrombocytopenia Elevated inflammatory markers Acute kidney injury 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
[2020-12-19] MEDS: MORPHINE SULFATE 2 MG/ML SYRINGE IV PRN ×5 (05:03→23:02)
[2020-12-19] MEDS: DEXTROSE 5% IN WATER 1,000 ML IV SCH (06:30)
[2020-12-19 06:49] LABS: Glucose,Whole Blood <20 mg/dL (75-99)
[2020-12-19] MEDS: INSULIN ASPART (NovoLOG) 100 UNIT/ML VIAL SQ SCH (07:23)
[2020-12-19] MEDS: INSULIN DETEMIR (LEVEMIR) 100 UNIT/ML SYR SQ SCH (07:23)
[2020-12-19] MEDS: FAMOTIDINE 20 MG TAB PO SCH (07:24)
[2020-12-19] MEDS: DESMOPRESSIN ACETATE 4 MCG/ML VIAL (MDV) SQ SCH (07:24)
[2020-12-19 14:14] VITALS: BMI 33.7
--- NOTE | 2020-12-19 17:13 | P.PN ---
Subjective Progress Note Date: 12/19/20 Acute hypoxic respiratory failure due to COVID Pneumonia Mr. Pena is a 75-year-old gentleman with a past medical history of hypertension, hypothyroidism, diabetes mellitus, peripheral neuropathy, diabetic retinopathy, chronic kidney disease, coronary artery disease status post CABG and AICD admitted for fever decreased appetite and diarrhea. Patient's Covid rapid test was positive and he was admitted for acute bilateral COVID-19 pneumonitis. Patient was given remdesivir, dexamethasone and required high flow oxygen. Patient dropped his hemoglobin on December 03, he had received 5 units of blood. Patient developed retroperitoneal bleed he was also having left lower leg DVT and had IVC filter placement on December 08. Eventually patient's condition worsened and today when I went to see the patient, his family is at bedside having discussion regarding hospice care. Patient was resting comfortably in the bed does not appear to be in any acute distress. His family members at bedside. Patient's medications have been reviewed. 12/19/2020 Patient is seen and evaluated and follow-up continues to be on comfort measures with daughter and at the bedside. [facility] hospice following and patient is maintained on comfort measures only and other medications have been discontinued. Prognosis remains guarded and will continue to follow closely. Objective - Vital Signs Vital signs: Vital Signs Temp 97.5 F L 12/18/20 05:41 Pulse 83 12/18/20 08:00 Resp 16 12/19/20 02:34 BP 114/60 12/18/20 05:41 Pulse Ox 89 L 12/18/20 05:41 Intake & Output 12/18/20 12/19/20 12/19/20 18:59 06:59 18:59 Weight 97.7 kg Other: Voiding Method Indwelling Catheter Indwelling Catheter Indwelling Catheter - Exam Patient is lying in bed comfortably and his family at bed side. 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 Agonal respirations noted on exam. Patient appears comfortable and is unresponsive. Will continue to monitor closely.
[2020-12-20] MEDS: MORPHINE SULFATE 2 MG/ML SYRINGE IV PRN ×3 (00:08→01:24)
[2020-12-20 02:43] VITALS: RESP 30
--- NOTE | 2020-12-20 08:59 | P.DS ---
Providers Date of admission: 11/19/20 02:16 Expected date of discharge: 12/20/20 Attending physician: Jersey Fritz Consults: 11/19/20 02:13 Consult Physician Routine Consulting Provider: [facility] Consult Reason/Comments: Elevated trop Do you want consulting provider notified?: Yes 11/19/20 15:14 Consult Physician Routine Consulting Provider: Meng Fenton Consult Reason/Comments: covid-19 Do you want consulting provider notified?: Yes Consult Physician Routine Consulting Provider: Grey Ayala Consult Reason/Comments: covid Do you want consulting provider notified?: Yes 12/04/20 14:40 Consult Physician Stat Consulting Provider: Fan Cotto Consult Reason/Comments: Hgb drops Do you want consulting provider notified?: Yes 12/06/20 15:02 Consult Physician Stat Consulting Provider: Yanet Levin Consult Reason/Comments: Large retroperitoneal hematoma. hgb drops Do you want consulting provider notified?: Yes Primary care physician: [facility] Course: Final diagnosis Acute hypoxic respiratory failure secondary to COVID-19 pneumonia Hypothermia Hypotension Acute blood loss anemia Retroperitoneal bleed Thrombocytopenia Elevated inflammatory markers Acute kidney injury CKD with diabetic nephropathy and neuropathy Diabetes mellitus Troponin leak CAD with Coronary artery bypass grafting History of AICD placement Any of chronic disease Hypothyroidism History of gout No code Discharge disposition Patient has please refer to nursing documentation for accurate time of . Preliminary cause of COVID-19 pneumonia Hospital course Acute hypoxic respiratory failure due to COVID Pneumonia Mr. Pena is a 75-year-old gentleman with a past medical history of hypertension, hypothyroidism, diabetes mellitus, peripheral neuropathy, diabetic retinopathy, chronic kidney disease, coronary artery disease status post CABG and AICD admitted for fever decreased appetite and diarrhea. Patient's Covid rapid test was positive and he was admitted for acute bilateral COVID-19 pneumonitis. Patient was given remdesivir, dexamethasone and required high flow oxygen. Patient dropped his hemoglobin on December 03, he had received 5 units of blood. Patient developed retroperitoneal bleed he was also having left lower leg DVT and had IVC filter placement on December 08. Eventually patient's condition worsened and today when I went to see the patient, his family is at bedside having discussion regarding hospice care. Patient was resting comfortably in the bed does not appear to be in any acute distress. His family members at bedside. Patient's medications have been reviewed. 12/19/2020 Patient is seen and evaluated and follow-up continues to be on comfort measures with daughter and at the bedside. [facility] hospice following and patient is maintained on comfort measures only and other medications have been discontinued. Prognosis remains guarded and will continue to follow closely. 12/20/2020 Patient has and was on comfort measures with family at the bedside. Patient has had prolonged hospitalization and has been hospitalized since November 19, 2020 secondary to COVID-19 bilateral pneumonitis. Patient was made comfort measures per family request as clinical condition was continuing to worsen. Time of per nursing documentation is 0620 on 12/20/2020. Please refer to previous dictations for further HPI Patient Condition at Discharge: Poor Plan - Discharge Summary Discharge Rx Participant: No New Discharge Prescriptions: No Action Aspirin EC [Ecotrin Low Dose] 81 mg PO BID Ferrous Sulfate [Iron (65 MG Elemental)] 325 mg PO BID@1200,1800 allopurinoL [Zyloprim] 100 mg PO W/SUPPER calcitrioL [Rocaltrol] 0.25 mcg PO WE Levothyroxine Sodium [Synthroid] 100 mcg PO AC-BRKFST Carvedilol [Coreg] 18.75 mg PO BID@1200,1800 Repaglinide [Prandin] 0.25 mg PO AC-BID Spironolactone 12.5 mg PO DAILY@1200 Atorvastatin Calcium [Lipitor] 40 mg PO HS Epoetin Rizwan-Epbx [Retacrit] 4,000 units SQ Q21D Ergocalciferol (Vitamin D2) [Vitamin D2 (50,000 Iu)] 1,250 mcg PO QMONTHLY Discharge Medication List Aspirin EC [Ecotrin Low Dose] 81 mg PO BID 11/29/16 [History] Carvedilol [Coreg] 18.75 mg PO BID@1200,1800 11/29/16 [History] Ferrous Sulfate [Iron (65 MG Elemental)] 325 mg PO BID@1200,1800 11/29/16 [History] Levothyroxine Sodium [Synthroid] 100 mcg PO AC-BRKFST 11/29/16 [History] allopurinoL [Zyloprim] 100 mg PO W/SUPPER 11/29/16 [History] calcitrioL [Rocaltrol] 0.25 mcg PO WE 11/29/16 [History] Repaglinide [Prandin] 0.25 mg PO AC-BID 06/09/18 [History] Spironolactone 12.5 mg PO DAILY@1200 06/09/18 [History] Atorvastatin Calcium [Lipitor] 40 mg PO HS 11/19/20 [History] Epoetin Rizwan-Epbx [Retacrit] 4,000 units SQ Q21D 11/19/20 [History] Ergocalciferol (Vitamin D2) [Vitamin D2 (50,000 Iu)] 1,250 mcg PO QMONTHLY 11/19/20 [History] Follow up Appointment(s)/Referral(s): Silvestre Jackson MD [STAFF PHYSICIAN] - 2 Weeks Golden Horta DO [Primary Care Provider] - 1-2 days Malika Pacheco MD [STAFF PHYSICIAN] - 2 Weeks Discharge Disposition: - Preliminary Cause of Preliminary Cause of : COVID-19 pneumonia
--- NOTE | 2020-12-27 13:51 | CDI ---
Documentation Clarification Form Date: 12/27/2020 01:31:09 PM From: Xochilt Hardy CCS, CCDS Admit Date: 11/19/2020 02:16:00 AM Patient Name: Lee Pena Visit Number: [id number] Discharge Date: 12/20/2020 07:45:00 AM ATTENTION: The Clinical Documentation Specialists (CDI) and [facility] Coding Staff appreciate your assistance in clarifying documentation. Please respond to the clarification below the line at the bottom and electronically sign. The CDI & [facility] Coding staff will review the response and follow-up if needed. Please note: Queries are made part of the Legal Health Record. If you have any questions, please contact the author of this message via ITS. Dr. Erik Gerard: Additional clarification regarding the etiology and POA status of Sepsis is requested. Per the 11/21 Nephrology Progress Note: TODD likely ATN from Sepsis. Per the 12/04 Pulmonary Progress Note: There is a possibility of Sepsis possibly related to UTI (UTI was diagnosed on 12/04) Per the 12/07 Infectious Disease Progress Note: Episode of Sepsis, concern for Pneumonia. Per the 12/16 Infectious Disease Progress Note: Initial admission to the hospital with COVID 19 infection, subsequently possible component of Sepsis and Bacterial Pneumonia. The 12/20 Discharge Summary does not include Sepsis. History/Risk Factors per the 11/19 H/P: DM on po Hypoglycemic meds, Diabetic Peripheral Neuropathy & Retinopathy, Hypertension, CKD IV, CAD with CABG & AICD, Hypothyroid, Chronic Gout, Anemia of Chronic Disease, Non Smoker. Clinical Indicators: Presented to the ED on 11/19 via EMS with Weakness & COVID symptoms. The patient had a negative COVID test on 11/16, COVID is positive per test 11/19 in ED. ED Clinical Impression: COVID 19, Weakness, Elevated Troponins, Acute on Chronic Renal Failure 11/19 VS: T 99.2, P 60, R 18, BP 145/66 - 127/58, PO 98 RA - 94 2Lnc, BMI: 33.7 11/19 LAB: WBC 3.2, RBC 3.09, Hgb 9.7, Hct 29.6, Lymph 0.5, D Dimer 0.64, Lactic Acid 0.7, Troponin 0.073, 0.068; Total Protein 5.7, Albumin 3.2 11/19 UA: Clear, 2+ protein, Moderate Blood, Negative Nitrite 11/19 COVID POSITIVE 12/03 VS: T 86.9, P 59, R 18, BP 85/44, PO 86 on 6L-10L High Flow 12/04 LAB: WBC 23.62, RBC 1.88, Hgb 6.0, Hct 18.2, Pl Ct 93, Neut 21.55, Lymph 0.48 12/04 UA: Cloudy, Trace Blood, Large Esterase, WBC 80 Cultures: 12/03 Blood Culture: Final: Neg after 144 hrs 12/04 Urine Culture: Final: E Coli, enterococcus faecalis 12/05 Blood Culture: Final: Neg after 144 hrs. Treatment 11/19: IV Fluid NaCl 500 mls @ 999 mls/hr q31M, IV Decadron, Lovenox sq, IV Remdesivir. 12/03: IV Fluid NaCl 1,000 mls @ 500 mls/hr q2H, IV Vancomycin, Lovenox sq 12/04: IV Cefepime, IV Na Bicarb, IV Desmopressin Acetate, IV Calcium Gluconate, IV Vancomycin, IV Linezolid. In your professional opinion, please clarify if these findings signify any of the following conditions, please select all that may apply: [ ] Sepsis POA, please specify the Etiology of Sepsis: [ ] Sepsis, Not POA, please specify the Etiology of Sepsis: [ ] Severe Sepsis with organ failure, please specify condition(s): [ ] Please Specify with or without Septic Shock [ ] Other, please specify [ ] Unable to determine Template Last Reviewed: September 2020) Sepsis POA, please specify the Etiology of Sepsis-Pneumonia MTDD
--- NOTE | 2021-01-27 21:16 | P.GSCN ---
History of Present Illness Consult date: 12/08/20 History of present illness: CHIEF COMPLAINT: Inadequate protein nutrition HISTORY OF PRESENT ILLNESS: The patient is a 75 year old male admitted 11/19/2020 for fatigue and weakness followed by COVID positive pneumonia and acute renal failure. He has been hospitalized over 2-3 weeks. He had acute blood loss anemia. Computed tomography scan demonstrated intra-abdominal hematoma. He then developed DVT. He had quintin filter that was placed. Since hospitalization, he global decline including poor oral intake. He has low appetite. Globally he has mental decline. He has generalized weakness. General surgery is consulted for feeding tube placement due to protein malnutrition and inadequate oral intake. PAST MEDICAL HISTORY: See list and reviewed PAST SURGICAL HISTORY: See list and reviewed MEDICATIONS: See list and reviewed ALLERGIES: See list and reviewed SOCIAL HISTORY: See list and reviewed FAMILY HISTORY: See list and reviewed REVIEW OF ORGAN SYSTEMS: CONSTITUTIONAL: No fevers or chills. No recent weight loss. EYES: Denies any trouble with vision. No glasses. Has cataracts. Has diabetic neuropathy. HEENT: No difficulties with hearing. No nosebleeds. No difficulty swallowing. RESPIRATORY: Denies pneumonia. Denies any troubles with breathing or dyspnea on exertion. CARDIOVASCULAR: Has hypertensive heart disease. Has hyperlipidemia. Has [facility] AICD. Has CABG x 4. GASTROINTESTINAL: Denies fatty food intolerance. Denies change in bowel habits and gas bloat. Has iron deficiency. GENITOURINARY: Denies any blood in urine or increased urinary frequency. Has stage 4 kidney disease. NEUROLOGICAL: Has neuropathy bilateral lower extremity. No seizure disorders or headaches. MUSCULOSKELETAL: Has back pain, stiffness or joint arthritis. Has gout. SKIN: No current skin cancer. No rash. PSYCHIATRIC: Denies current depression or suicidal thoughts. ENDOCRINE: Has hypothyroidism. Has diabetes type 2. HEME/LYMPHATIC: Denies any lumps and bumps around the neck. Recent deep venous thrombosis. ALLERGY/IMMUNOLOGY: No immunoglobulin therapy. No immune deficiencies. BREAST: Denies current breast lumps, pain or nipple discharge. PHYSICAL EXAM: VITALS: Reviewed CONSTITUTIONAL: Well developed and in no acute distress. EYES: Conjuctivae without sclera icterus. Extraocular movements grossly intact. HEAD, EARS, NOSE, THROAT: Moist buccal mucosa. Head is atraumatic, normocephalic. Hears conversational speech. No nasal drainage. NECK: Supple. No JV distention. No thyroidomegaly. RESPIRATORY: Non-labored respirations and equal bilateral excursions. No gross wheezes. CARDIOVASCULAR: Palpable 2+ radial pulses. ABDOMEN: No peritonitis. LYMPH: No neck lymphadenopathy. MUSCULOSKELETAL: Nail and fingers with good capillary refill. SKIN: Warm and well perfused with good skin turgor. NEUROLOGIC: Cranial nerves II through XII grossly intact. No focal or lateralizing signs. PSYCH: Flat affect. CLINCAL LABS: Reviewed. WBC over 19,000. Hemoglobin less than 7.0. ASSESSMENT: 1. Retroperitoneal hematoma 2. COVID-19 pneumonia 3. Acute pancreatitis 4. Acute renal failure 5. Uremia 6. Anorexia 7. DVT PLAN: 1. Recommend calorie count. 2. At present, patient high surgical risk for gastrostomy tube placement Past Medical History Past Medical History: Coronary Artery Disease (CAD), Diabetes Mellitus, Eye Disorder, Renal Disease, Thyroid Disorder Additional Past Medical History / Comment(s): SEE DR KENNY H&P, ANEMIA, HX GOUT, NEUROPATHY ALEX HANDS AND FEET, DIABETIC RETINOPATHY, GET INJECTIONS IN EYES, stage 4 KIDNEY DISEASE per spouse History of Any Multi-Drug Resistant Organisms: None Reported Past Surgical History: AICD, Coronary Bypass/CABG Additional Past Surgical History / Comment(s): ALEX CATARACTS, CABG X4 Past Anesthesia/Blood Transfusion Reactions: No Reported Reaction Type of Cardiac Device: AICD Device Placement Date:: 11/20/17 [facility] Past Psychological History: No Psychological Hx Reported Smoking Status: Never smoker Past Alcohol Use History: None Reported Past Drug Use History: None Reported - Past Family History Father Family Medical History: Cancer Brother(s) Family Medical History: Cancer Medications and Allergies Home Medications Medication Instructions Recorded Confirmed Type Aspirin EC [Ecotrin Low Dose] 81 mg PO BID 11/29/16 11/19/20 History Carvedilol [Coreg] 18.75 mg PO BID@1200,1800 11/29/16 11/19/20 History Ferrous Sulfate [Iron (65 MG 325 mg PO BID@1200,1800 11/29/16 11/19/20 History Elemental)] Levothyroxine Sodium [Synthroid] 100 mcg PO AC-BRKFST 11/29/16 11/19/20 History allopurinoL [Zyloprim] 100 mg PO W/SUPPER 11/29/16 11/19/20 History calcitrioL [Rocaltrol] 0.25 mcg PO WE 11/29/16 11/19/20 History Repaglinide [Prandin] 0.25 mg PO AC-BID 06/09/18 11/19/20 History Spironolactone 12.5 mg PO DAILY@1200 06/09/18 11/19/20 History Atorvastatin Calcium [Lipitor] 40 mg PO HS 11/19/20 11/19/20 History Epoetin Rizwan-Epbx [Retacrit] 4,000 units SQ Q21D 11/19/20 11/19/20 History Ergocalciferol (Vitamin D2) 1,250 mcg PO QMONTHLY 11/19/20 11/19/20 History [Vitamin D2 (50,000 Iu)] Allergies Allergy/AdvReac Type Severity Reaction Status Date / Time No Known Allergies Allergy Verified 11/19/20 08:10 Surgical - Exam Vital Signs Temp Pulse Resp BP Pulse Ox 99.2 F 60 18 145/66 98 11/18/20 22:05 11/18/20 22:05 11/18/20 22:05 11/18/20 22:05 11/18/20 22:05 Results - Labs 12/16/20 06:59 12/18/20 07:14 Abnormal Lab Results - Last 24 Hours (Table) 12/07/20 12/07/20 12/07/20 Range/Units 06:48 06:48 20:16 WBC (4.50-10.00) X 10*3/uL RBC (4.40-5.60) X 10*6/uL Hgb (13.0-17.0) g/dL Hct (39.6-50.0) % RDW (11.5-14.5) % Plt Count (140-440) X 10*3/uL Plt Count Comment MPV (9.5-12.2) fL Absolute Nucleated RBC (0.00-0.00) X 10*3/uL Immature Gran # (0.00-0.04) X 10*3/uL Neutrophils # (1.80-7.70) X 10*3/uL Lymphocytes # (0.90-5.00) X 10*3/uL Eosinophils # (0.04-0.35) X 10*3/uL NRBC/100 WBC Diff (0.0-0.0) /100 WBCS Immature Plt Fraction (1.1-6.1) % Fibrinogen (200-500) mg/dL Carbon Dioxide 20.4 L (21.6-31.8) mmol/L Anion Gap 16.60 H (4.00-12.00) mmol/L BUN 154.0 H* (9.0-27.0) mg/dL Creatinine 3.2 H (0.6-1.5) mg/dL Est GFR (CKD-EPI)AfAm 21.0 L (60.0-200.0) Est GFR (CKD-EPI)NonAf 18.1 L (60.0-200.0) BUN/Creatinine Ratio 48.13 H (12.00-20.00) Ratio POC Glucose (mg/dL) 211 H (75-99) mg/dL Calcium 6.1 L* (8.7-10.3) mg/dL Phosphorus 8.0 H (2.4-5.1) mg/dL Lactate Dehydrogenase 971 H (120-246) U/L Total Protein (PEP) 4.0 L (6.2-8.2) g/dL Albumin (PEP) 2.34 L (3.80-4.90) g/dL Lzses-6-Wnoxzfddg 0.58 L (0.60-1.00) g/dL Beta Globulins 0.41 L (0.60-1.30) g/dL Gamma Globulins 0.40 L (0.70-1.50) g/dL 12/08/20 12/08/20 12/08/20 Range/Units 06:35 06:35 06:35 WBC 19.60 H (4.50-10.00) X 10*3/uL RBC 2.22 L (4.40-5.60) X 10*6/uL Hgb 7.0 L (13.0-17.0) g/dL Hct 21.2 L (39.6-50.0) % RDW 16.6 H (11.5-14.5) % Plt Count 77 L (140-440) X 10*3/uL Plt Count Comment DECREASED A MPV 13.2 H (9.5-12.2) fL Absolute Nucleated RBC 0.05 H (0.00-0.00) X 10*3/uL Immature Gran # 0.22 H (0.00-0.04) X 10*3/uL Neutrophils # 17.89 H (1.80-7.70) X 10*3/uL Lymphocytes # 0.47 L (0.90-5.00) X 10*3/uL Eosinophils # 0.03 L (0.04-0.35) X 10*3/uL NRBC/100 WBC Diff 0.3 H (0.0-0.0) /100 WBCS Immature Plt Fraction 6.4 H (1.1-6.1) % Fibrinogen 174 L (200-500) mg/dL Carbon Dioxide (21.6-31.8) mmol/L Anion Gap 14.50 H (4.00-12.00) mmol/L BUN 145.0 H* (9.0-27.0) mg/dL Creatinine 3.1 H (0.6-1.5) mg/dL Est GFR (CKD-EPI)AfAm 21.8 L (60.0-200.0) Est GFR (CKD-EPI)NonAf 18.8 L (60.0-200.0) BUN/Creatinine Ratio 46.77 H (12.00-20.00) Ratio POC Glucose (mg/dL) (75-99) mg/dL Calcium 6.4 L* (8.7-10.3) mg/dL Phosphorus (2.4-5.1) mg/dL Lactate Dehydrogenase (120-246) U/L Total Protein (PEP) (6.2-8.2) g/dL Albumin (PEP) (3.80-4.90) g/dL Ttcar-9-Gtiyvjmmi (0.60-1.00) g/dL Beta Globulins (0.60-1.30) g/dL Gamma Globulins (0.70-1.50) g/dL 12/08/20 12/08/20 12/08/20 Range/Units 06:58 11:23 11:35 WBC (4.50-10.00) X 10*3/uL RBC (4.40-5.60) X 10*6/uL Hgb (13.0-17.0) g/dL Hct (39.6-50.0) % RDW (11.5-14.5) % Plt Count (140-440) X 10*3/uL Plt Count Comment MPV (9.5-12.2) fL Absolute Nucleated RBC (0.00-0.00) X 10*3/uL Immature Gran # (0.00-0.04) X 10*3/uL Neutrophils # (1.80-7.70) X 10*3/uL Lymphocytes # (0.90-5.00) X 10*3/uL Eosinophils # (0.04-0.35) X 10*3/uL NRBC/100 WBC Diff (0.0-0.0) /100 WBCS Immature Plt Fraction (1.1-6.1) % Fibrinogen (200-500) mg/dL Carbon Dioxide (21.6-31.8) mmol/L Anion Gap (4.00-12.00) mmol/L BUN (9.0-27.0) mg/dL Creatinine (0.6-1.5) mg/dL Est GFR (CKD-EPI)AfAm (60.0-200.0) Est GFR (CKD-EPI)NonAf (60.0-200.0) BUN/Creatinine Ratio (12.00-20.00) Ratio POC Glucose (mg/dL) 100 H 59 L 63 L (75-99) mg/dL Calcium (8.7-10.3) mg/dL Phosphorus (2.4-5.1) mg/dL Lactate Dehydrogenase (120-246) U/L Total Protein (PEP) (6.2-8.2) g/dL Albumin (PEP) (3.80-4.90) g/dL Byzvy-3-Pyrbxycyn (0.60-1.00) g/dL Beta Globulins (0.60-1.30) g/dL Gamma Globulins (0.70-1.50) g/dL 12/08/20 Range/Units 11:49 WBC (4.50-10.00) X 10*3/uL RBC (4.40-5.60) X 10*6/uL Hgb (13.0-17.0) g/dL Hct (39.6-50.0) % RDW (11.5-14.5) % Plt Count (140-440) X 10*3/uL Plt Count Comment MPV (9.5-12.2) fL Absolute Nucleated RBC (0.00-0.00) X 10*3/uL Immature Gran # (0.00-0.04) X 10*3/uL Neutrophils # (1.80-7.70) X 10*3/uL Lymphocytes # (0.90-5.00) X 10*3/uL Eosinophils # (0.04-0.35) X 10*3/uL NRBC/100 WBC Diff (0.0-0.0) /100 WBCS Immature Plt Fraction (1.1-6.1) % Fibrinogen (200-500) mg/dL Carbon Dioxide (21.6-31.8) mmol/L Anion Gap (4.00-12.00) mmol/L BUN (9.0-27.0) mg/dL Creatinine (0.6-1.5) mg/dL Est GFR (CKD-EPI)AfAm (60.0-200.0) Est GFR (CKD-EPI)NonAf (60.0-200.0) BUN/Creatinine Ratio (12.00-20.00) Ratio POC Glucose (mg/dL) 409 H (75-99) mg/dL Calcium (8.7-10.3) mg/dL Phosphorus (2.4-5.1) mg/dL Lactate Dehydrogenase (120-246) U/L Total Protein (PEP) (6.2-8.2) g/dL Albumin (PEP) (3.80-4.90) g/dL Epvnx-3-Wljkixvru (0.60-1.00) g/dL Beta Globulins (0.60-1.30) g/dL Gamma Globulins (0.70-1.50) g/dL Microbiology - Last 24 Hours (Table) 12/03/20 13:07 Blood Culture - Preliminary Blood No Growth after 120 hours 12/05/20 02:27 Blood Culture - Preliminary Blood No Growth after 72 hours 12/04/20 14:45 Urine Culture - Final Urine,Voided Escherichia coli Enterococcus faecalis Diabetes panel 12/07/20 12/08/20 Range/Units 06:48 06:35 Sodium 141 142 (135-145) mmol/L Potassium 4.7 4.5 (3.5-5.5) mmol/L Chloride 104 104 (96-109) mmol/L Carbon Dioxide 20.4 L 23.5 (21.6-31.8) mmol/L BUN 154.0 H* 145.0 H* (9.0-27.0) mg/dL Creatinine 3.2 H 3.1 H (0.6-1.5) mg/dL Glucose 90 84 (70-110) mg/dL Calcium 6.1 L* 6.4 L* (8.7-10.3) mg/dL Calcium panel 12/07/20 12/08/20 Range/Units 06:48 06:35 Calcium 6.1 L* 6.4 L* (8.7-10.3) mg/dL Phosphorus 8.0 H (2.4-5.1) mg/dL Pituitary panel 12/07/20 12/08/20 Range/Units 06:48 06:35 Sodium 141 142 (135-145) mmol/L Potassium 4.7 4.5 (3.5-5.5) mmol/L Chloride 104 104 (96-109) mmol/L Carbon Dioxide 20.4 L 23.5 (21.6-31.8) mmol/L BUN 154.0 H* 145.0 H* (9.0-27.0) mg/dL Creatinine 3.2 H 3.1 H (0.6-1.5) mg/dL Glucose 90 84 (70-110) mg/dL Calcium 6.1 L* 6.4 L* (8.7-10.3) mg/dL Adrenal panel 12/07/20 12/08/20 Range/Units 06:48 06:35 Sodium 141 142 (135-145) mmol/L Potassium 4.7 4.5 (3.5-5.5) mmol/L Chloride 104 104 (96-109) mmol/L Carbon Dioxide 20.4 L 23.5 (21.6-31.8) mmol/L BUN 154.0 H* 145.0 H* (9.0-27.0) mg/dL Creatinine 3.2 H 3.1 H (0.6-1.5) mg/dL Glucose 90 84 (70-110) mg/dL Calcium 6.1 L* 6.4 L* (8.7-10.3) mg/dL Assessment and Plan (1) Sepsis Status: Acute Code(s): A41.9 - SEPSIS, UNSPECIFIED ORGANISM SNOMED Code(s): 85840903 (2) Acute on chronic renal failure Status: Acute Priority: High Code(s): N17.9 - ACUTE KIDNEY FAILURE, UNSPECIFIED; N18.9 - CHRONIC KIDNEY DISEASE, UNSPECIFIED SNOMED Code(s): 939972721 (3) COVID-19 Status: Acute Code(s): U07.1 - COVID-19 SNOMED Code(s): 120960383 (4) Chronic kidney disease Status: Acute Code(s): N18.9 - CHRONIC KIDNEY DISEASE, UNSPECIFIED SNOMED Code(s): 744944844 (5) DVT (deep venous thrombosis) Status: Acute Priority: High Code(s): I82.409 - ACUTE EMBOLISM AND THOMBOS UNSP DEEP VN UNSP LOWER EXTREMITY SNOMED Code(s): 082432963 (6) Inadequate dietary intake of protein Status: Acute Code(s): E63.9 - NUTRITIONAL DEFICIENCY, UNSPECIFIED SNOMED Code(s): 494319044 (7) Leukocytosis Status: Acute Priority: High Code(s): D72.829 - ELEVATED WHITE BLOOD CELL COUNT, UNSPECIFIED SNOMED Code(s): 919827779 (8) Pneumonia due to COVID-19 virus Status: Acute Code(s): U07.1 - COVID-19; J12.82 - Pneumonia due to coronavirus disease 2019 SNOMED Code(s): 182917912473069139
--- NOTE | 2021-01-27 21:29 | P.PN ---
Subjective Progress Note Date: 12/14/20 Principal diagnosis: CHIEF COMPLAINT: Retroperitoneal hematoma HISTORY OF PRESENT ILLNESS: The patient is a 75 year old male with COVID pneumonia. He has global decline in the last 72 hours including air mask type BiPAP. He is less alert. No pain. Hgb did decline again less than 7.0 in setting of patient with heart disease. Also request of feeding tube per medicine is being requested. He also had recent green field filter placement of LLE DVT. Patient has less oral intake. He has uremia with chronic kidney disease. Patient has low caloric intake. REVIEW OF ORGAN SYSTEMS: Has shortness of breath. More lethargic. PHYSICAL EXAM: VITALS: Reviewed CONSTITUTIONAL: Well developed and in no acute distress. EYES: Conjuctivae without sclera icterus. Extraocular movements grossly intact. HEAD, EARS, NOSE, THROAT: dry buccal mucosa. Head is atraumatic, normocephalic. Hears conversational speech. RESPIRATORY: Labored respirations and equal bilateral excursions. No gross wheezes. CARDIOVASCULAR: Regular rate and rhythm. Extremities without moderate edema. Palpable 2+ radial pulses. ABDOMEN: No peritonitis. NEUROLOGIC: Cranial nerves II through XII grossly intact. No focal or lateralizing signs. PSYCH: Has lethargy. CLINCAL LABS: Reviewed. Platelets low 60s with retroperitoneal bleeding and decline in Hgb. ASSESSMENT: 1. Acute blood loss anemia 2. Uremia 3. Thrombocytopenia 4. Inadequate oral intake PLAN: 1. His platelets has poor quality with uremia depite prior adjuncts such as DDVAP. Platelets ordered in setting of large retroperitoneal bleed and persistent decline in platelets incluing uremia with dysfunctional platelets 2. Patient has declining platelets due to coronavirus infection. He is extremely high risk for any surgical intervention. 3. Will need platelets prior to transfusion for high risk of bleeding. 4. We'll proceed with EGD and PEG tube placement. Objective - Vital Signs Vital signs: Vital Signs Temp 97.7 F 12/14/20 05:13 Pulse 80 12/14/20 05:13 Resp 18 12/14/20 08:30 BP 164/64 12/14/20 05:13 Pulse Ox 92 L 12/14/20 05:13 Intake & Output 12/13/20 12/14/20 12/14/20 18:59 06:59 18:59 Output Total 300 775 Balance -300 -775 Weight 85.2 kg Output: Urine 300 775 Other: Voiding Method Indwelling Catheter Indwelling Catheter Indwelling Catheter # Voids 1 - Labs CBC & Chem 7: 12/16/20 06:59 12/18/20 07:14 Labs: Abnormal Lab Results - Last 24 Hours (Table) 12/13/20 12/13/20 12/14/20 Range/Units 16:38 20:07 06:49 RBC (4.30-5.90) m/uL Hgb (13.0-17.5) gm/dL Hct (39.0-53.0) % RDW (11.5-15.5) % Plt Count (150-450) k/uL Lymphocytes # (1.0-4.8) k/uL APTT (22.0-30.0) sec BUN (9-20) mg/dL Creatinine (0.66-1.25) mg/dL Glucose (74-99) mg/dL POC Glucose (mg/dL) 268 H 273 H 68 L (75-99) mg/dL Calcium (8.4-10.2) mg/dL 12/14/20 12/14/20 12/14/20 Range/Units 07:04 10:17 10:17 RBC 2.44 L (4.30-5.90) m/uL Hgb 7.6 L (13.0-17.5) gm/dL Hct 23.1 L (39.0-53.0) % RDW 19.3 H (11.5-15.5) % Plt Count 43 L (150-450) k/uL Lymphocytes # 0.3 L (1.0-4.8) k/uL APTT (22.0-30.0) sec BUN 112 H* (9-20) mg/dL Creatinine 3.10 H (0.66-1.25) mg/dL Glucose 117 H (74-99) mg/dL POC Glucose (mg/dL) 70 L (75-99) mg/dL Calcium 6.8 L (8.4-10.2) mg/dL 12/14/20 12/14/20 Range/Units 11:09 11:39 RBC (4.30-5.90) m/uL Hgb (13.0-17.5) gm/dL Hct (39.0-53.0) % RDW (11.5-15.5) % Plt Count (150-450) k/uL Lymphocytes # (1.0-4.8) k/uL APTT 20.9 L (22.0-30.0) sec BUN (9-20) mg/dL Creatinine (0.66-1.25) mg/dL Glucose (74-99) mg/dL POC Glucose (mg/dL) 131 H (75-99) mg/dL Calcium (8.4-10.2) mg/dL
== END 2020-12-20 07:45 | disposition expired | DRG 871 ==
LOC: EC 21:48 → 3SCARD 11-19 02:16 → 4SSUR 11-22 06:27
PROVIDERS: ADMIT Hospitalist; ATTEND Hospitalist
PROC: XW033E5 Introduction of Remdesivir Anti-infective into Peripheral Vein, Percutaneous Approach, New Technology Group 5 (ICD-10-PCS; 2020-11-19)
PROC: 5A0955A Assistance with Respiratory Ventilation, Greater than 96 Consecutive Hours, High Flow/Velocity Cannula (ICD-10-PCS; 2020-11-22)
PROC: XW033H5 Introduction of Tocilizumab into Peripheral Vein, Percutaneous Approach, New Technology Group 5 (ICD-10-PCS; 2020-11-29)
PROC: 30233R1 Transfusion of Nonautologous Platelets into Peripheral Vein, Percutaneous Approach (ICD-10-PCS; 2020-12-03)
PROC: 30233N1 Transfusion of Nonautologous Red Blood Cells into Peripheral Vein, Percutaneous Approach (ICD-10-PCS; 2020-12-03)
PROC: 06H03DZ Insertion of Intraluminal Device into Inferior Vena Cava, Percutaneous Approach (ICD-10-PCS; principal; 2020-12-08 09:30)
PROC: 05HA33Z Insertion of Infusion Device into Left Brachial Vein, Percutaneous Approach (ICD-10-PCS; 2020-12-12)
PROC: 3E0G76Z Introduction of Nutritional Substance into Upper GI, Via Natural or Artificial Opening (ICD-10-PCS; 2020-12-20)
PROC: 3E033XZ Introduction of Vasopressor into Peripheral Vein, Percutaneous Approach (ICD-10-PCS; 2020-12-20)
DX: A41.89 Other specified sepsis (principal); U07.1 COVID-19; I40.9 Acute myocarditis, unspecified; J12.82 Pneumonia due to coronavirus disease 2019; J15.9 Unspecified bacterial pneumonia; J96.01 Acute respiratory failure with hypoxia; K66.1 Hemoperitoneum; N17.0 Acute kidney failure with tubular necrosis; N18.6 End stage renal disease; G93.41 Metabolic encephalopathy; E44.1 Mild protein-calorie malnutrition; G93.1 Anoxic brain damage, not elsewhere classified; I50.22 Chronic systolic (congestive) heart failure; I82.412 Acute embolism and thrombosis of left femoral vein; J98.11 Atelectasis; K92.2 Gastrointestinal hemorrhage, unspecified; N39.0 Urinary tract infection, site not specified; E22.2 Syndrome of inappropriate secretion of antidiuretic hormone; R65.20 Severe sepsis without septic shock; I95.9 Hypotension, unspecified; D63.1 Anemia in chronic kidney disease; Z51.5 Encounter for palliative care; Z66 Do not resuscitate; D69.59 Other secondary thrombocytopenia; E83.51 Hypocalcemia; E11.319 Type 2 diabetes mellitus with unspecified diabetic retinopathy without macular edema; E11.42 Type 2 diabetes mellitus with diabetic polyneuropathy; E11.22 Type 2 diabetes mellitus with diabetic chronic kidney disease; E03.9 Hypothyroidism, unspecified; D72.810 Lymphocytopenia; E11.65 Type 2 diabetes mellitus with hyperglycemia; Z68.33 Body mass index [BMI] 33.0-33.9, adult; M1A.9XX0 Chronic gout, unspecified, without tophus (tophi); R68.0 Hypothermia, not associated with low environmental temperature; T38.0X5A Adverse effect of glucocorticoids and synthetic analogues, initial encounter; T50.1X5A Adverse effect of loop [high-ceiling] diuretics, initial encounter; B96.20 Unspecified Escherichia coli [E. coli] as the cause of diseases classified elsewhere; B95.2 Enterococcus as the cause of diseases classified elsewhere; R79.89 Other specified abnormal findings of blood chemistry; Z98.42 Cataract extraction status, left eye; Z98.41 Cataract extraction status, right eye; I25.5 Ischemic cardiomyopathy; E86.1 Hypovolemia; Z79.890 Hormone replacement therapy; Z79.899 Other long term (current) drug therapy; Z80.9 Family history of malignant neoplasm, unspecified; Z95.1 Presence of aortocoronary bypass graft; Z79.82 Long term (current) use of aspirin; Z95.810 Presence of automatic (implantable) cardiac defibrillator; Z98.890 Other specified postprocedural states
CPT/HCPCS: 36410; 36415; 37191; 71045; 71046; 74176; 76770; 76937; 80048; 80053; 80202; 81001; 82306; 82330; 82607; 82728; 82746; 82784; 83010; 83036; 83540; 83550; 83605; 83615; 83735; 83883; 83921; 83930; 83935; 84100; 84132; 84145; 84165; 84300; 84443; 84484; 85025; 85027; 85045; 85379; 85384; 85610; 85730; 86022; 86140; 86334; 86850; 86900; 86901; 86920; 87040; 87077; 87086; 87186; 87635; 93005; 93306; 93970; 94760; 99285